=== PATIENT | male | born 1950 | race Caucasian/White ===

== ENCOUNTER 2019-07-13 09:04 | Inpatient (IN) | payer MEDICARE, MEDICAID, SELFPAY ==
[2019-07-13] VITALS (12 sets, daily range): BP systolic 117–158; BP diastolic 67–96; PULSE 91–109; RESP 15–20; TEMP 36.7–37.6; O2SAT 95–99; BMI 26.9
--- NOTE | 2019-07-13 | ECHO_ITS ---
Patient Info Name: Dimitry Pa Age: 68 years : 1950 Gender: Male Ht: 70 in Wt: 163 lbs BSA: 1.91 m2 HR: 100 bpm BP: 133 / 80 mmHg Heart Rhythm: Left Bundle Branch Block Technical Quality: Good Exam Date: 07/13/2019 2:08 PM Exam Location: [facility] Patient Status: Inpatient Admit Date: 07/13/2019 Staff Ordering Physician: Julia Ojeda NP Clinical Account Liaison: Dimitry Freire RDCS Attending Provider: Xochitl Saba MD Referring Physician: Rusty MCKEON; Exam Type: CA echo doppler color flow Study Info Indications I50.9 - Heart failure, unspecified Complete two-dimensional, color flow and Doppler transthoracic echocardiogram is performed. Strain analysis performed. History/Risk Factors CHF w/ edema and BNP 2089; anasarca. Summary 1. Left ventricular chamber dimension is severely enlarged. 2. Left ventricular systolic function is severely reduced, estimated at 20-25%. 3. Inferoapex has a small calcified mass, could be calcifed chronic thrombus. 4. The left ventricular diastolic function is abnormal. 5. E/e' 26 is significantly elevated. 6. Global longitudinal strain is abnormal at -9.3%. 7. Left atrial chamber dimension is moderately enlarged. 8. There is moderate aortic valve sclerosis. 9. There is trace aortic valve regurgitation. 10. The mitral valve has mildly calcified annulus. 11. There is mild to moderate mitral valve regurgitation. 12. Normal inferior vena cava with <50% collapse upon inspiration consistent with elevated right atrial pressure, 10 mmHg. Left Ventricle E/e' 26 is significantly elevated. Global longitudinal strain is abnormal at -9.3%. Inferoapex has a small calcified mass, could be calcifed chronic thrombus. Left ventricular chamber dimension is severely enlarged. Left ventricular systolic function is severely reduced, estimated at 20-25%. The left ventricular diastolic function is abnormal. Right Ventricle Right ventricular chamber dimension is normal. Right ventricular systolic function is normal. Left Atria Left atrial chamber dimension is moderately enlarged. Right Atria Right atrial chamber dimension is normal. Aortic Valve The aortic valve is trileaflet. There is moderate aortic valve sclerosis. There is no aortic valve stenosis. There is trace aortic valve regurgitation. Pulmonic Valve There is no pulmonic regurgitation. Mitral Valve The mitral valve has mildly calcified annulus. There is no mitral valve stenosis. There is mild to moderate mitral valve regurgitation. Tricuspid Valve There is no tricuspid valve regurgitation. Pericardium/Pleural There is no pericardial effusion. Inferior Vena Cava Normal inferior vena cava with <50% collapse upon inspiration consistent with elevated right atrial pressure, 10 mmHg. Aorta The aortic root size at the sinus of Valsalva is normal. Left Ventricular Outflow Tract Name Value Normal LVOT 2D LVOT Diameter 2.0 cm LVOT Doppler LVOT Peak Gradient 4 mmHg LVOT Mean Gradient 2 mmHg LVOT VTI
--- NOTE | ~2019-07-13 | XR_ITS ---
EXAMINATION: XR chest 2V DATE: 07/13/2019 10:22 INDICATION: Cough, chest pressure and dyspnea on exertion TECHNIQUE: frontal and lateral views of the chest were obtained. COMPARISON: None FINDINGS: Opacities at the lung bases, left greater than right with blunting at the posterior sulci and left co stophrenic angle. Pulmonary vascular congestion without deanna pulmonary edema. No pneumothorax. Signi ficant portion of the mid to inferior cardiac silhouette are obscured by the adjacent pleural effusio n/airspace disease. Mediastinal silhouette is normal. There are bridging osteophytes at multiple leve ls in the spine, consistent with diffuse idiopathic skeletal hyperostosis (DISH). Moderate osteoarthr itis at the bilateral shoulders. IMPRESSION: 1. Small bilateral pleural effusions, left greater than right. 2. Associated bibasilar opacities again left greater than right consistent with associated compressiv e atelectasis although differential includes pneumonia. 3. Pulmonary vascular congestion without deanna pulmonary edema. Reviewed, dictated and finalized at location A. IMPRESSION: 1. Small bilateral pleural effusions, left greater than right. 2. Associated bibasilar opacities again left greater than right consistent with associated compressive atelectasis although differential includes pneumonia. 3. Pulmonary vascular congestion without deanna pulmonary edema.
--- NOTE | ~2019-07-13 | NM_ITS ---
EXAMINATION: NM seferino stress w perfusion DATE: 07/16/2019 12:14 INDICATION: Systolic heart failure. TECHNIQUE: Rest images were obtained following intravenous administration of 9.4 mCi Tc99m tetrofosmi n (Myoview). The patient was infused intravenously with Lexiscan (Regadenoson). Then, 29.8 mCi Tc99m tetrofosmin (Myoview) was administered intravenously, and stress images were obtained. Data was recon structed into short axis and horizontal and vertical long axis SPECT images. Gated SPECT images were also obtained. COMPARISON: None. FINDINGS: Small to moderate sized, moderate severity nonreversible infarct in the right coronary yobani ry vascular distribution centered at the apical inferior segment with minimal extension into the yosi cent apical, apical septal and mid inferior septal and inferior segments. There is a second small to moderate sized, moderate severity nonreversible infarct in the circumflex coronary artery vascular di stribution involving the apical lateral and mid anterolateral segment. No evident reversible ischemia . There is left ventricular enlargement with global hypokinesis resulting in moderately decreased lef t ventricular ejection fraction measuring 29%. IMPRESSION: 1. Small to moderate-sized moderate severity infarcts in the circumflex and right coronary artery vas cular distributions. No reversible ischemia.. 2. Left ventricular enlargement with global height kidneys is resulting in moderately decreased left ventricular ejection fraction measuring 29%. Reviewed, dictated and finalized at location A. IMPRESSION: 1. Small to moderate-sized moderate severity infarcts in the circumflex and rig ht coronary artery vascular distributions. No reversible ischemia.. 2. Left ventricular enlargement with global height kidneys is resulting in mode rately decreased left ventricular ejection fraction measuring 29%.
--- NOTE | ~2019-07-13 | XR_ITS ---
XR chest 2V DATE: 07/16/2019 12:01 INDICATION: Cough, shortness of breath on exertion, chest pressure TECHNIQUE: AP and lateral views COMPARISON: 06/23/2019 AP and lateral chest FINDINGS: There are prominent bibasilar infiltrates and/atelectasis and mild bilateral pleural effusi ons, left greater than right. Compared to 07/13/2019 there is increased infiltrate or atelectasis at t he right lung base. Cardiomegaly. Aortic calcification. Pulmonary vascularity appears within normal limits. No pneumothor ax. IMPRESSION: Bibasilar infiltrates and/atelectasis, increased on the right since 07/13/2019 Bilateral pleural effusions, greater on the left Cardiomegaly Reviewed, dictated and finalized at location B.
--- NOTE | ~2019-07-13 | US_ITS ---
EXAMINATION: US scrotum doppler DATE: 07/13/2019 10:16 INDICATION: Bilateral testicular swelling TECHNIQUE: Testicular sonogram utilizing grayscale and Doppler COMPARISON: None. FINDINGS: The right testis measures 4.3 x 3.6 x 2.8 cm. The left testis measures 3.6 x 3.2 x 2.5 cm. Symmetric normal grayscale appearance to both testes. There is normal vascular flow to both testes. 14 x 13 x 1 0 mm anechoic right epididymal head cyst. Right epididymis is otherwise normal. The left epididymis i s normal with normal vascular flow. There is no varicocele. Small left hydrocele. Prominent scrotal e angelia. IMPRESSION: 1. Right epididymal cyst head cyst. Otherwise normal testes and epididymides. 2. Scrotal edema and small left hydrocele. Reviewed, dictated and finalized at location A.
--- NOTE | ~2019-07-13 | US_ITS ---
EXAMINATION: US venous doppler [facility] DATE: 07/13/2019 16:15 INDICATION: Lower limb edema. TECHNIQUE: Grayscale ultrasound images without and with compression and Doppler ultrasound images of the bilateral lower extremity veins were obtained. COMPARISON: None. FINDINGS: The visualized portions of right common femoral vein, profunda (deep) femoral vein, femoral vein, pop liteal vein, peroneal veins, posterior tibial veins, and greater saphenous vein outflow are patent. The visualized portions of left common femoral vein, profunda femoral vein, femoral vein, popliteal v ein, peroneal veins, posterior tibial veins, and greater saphenous vein outflow are patent. IMPRESSION: 1. No deep venous thrombosis. Reviewed, dictated and finalized at location A.
--- NOTE | ~2019-07-13 | CT_ITS ---
EXAMINATION: CT abdomen pelvis w con INDICATION: Abnormal liver function tests, testicular swelling TECHNIQUE: Computed tomographic images of the abdomen and pelvis were obtained after the administrati on of 100 cc of Omnipaque 350 intravenous contrast. The dose-length product (DLP) was 565.99 mGy-cm. Automated exposure control and iterative reconstruction technique were employed. COMPARISON: None available FINDINGS: There are moderate-sized pleural effusions with passive atelectasis of the visualized lung bases. The heart size is normal. There is a focal area of hypoenhancement upper pole of the spleen. T he pancreas size the gallbladder and adrenal glands are normal. There is a 3 mm nonobstructing stone of the left kidney and a 2 mm nonobstructing stone of the right kidney. There is diffuse heterogeneou s of the liver. No pathologically enlarged abdominal or pelvic lymph nodes are identified. There is n o free intraperitoneal gas or evidence of bowel obstruction. There is diffuse anasarca. A small volum e of pelvic ascites is noted. There is mild lumbar spondylosis. IMPRESSION: 1. Moderate-sized pleural effusions with passive atelectasis of the visualized lung bases. 2. Heterogeneous liver enhancement which could be due to congestive heart failure. 3. Bilateral nonobstructing nephrolithiasis. 4. Diffuse anasarca. Reviewed, dictated and finalized at location B. IMPRESSION: 1. Moderate-sized pleural effusions with passive atelectasis of the visualized lung bases. 2. Heterogeneous liver enhancement which could be due to congestive heart failu re. 3. Bilateral nonobstructing nephrolithiasis. 4. Diffuse anasarca.
--- NOTE | 2019-07-13 09:22 | ED.MALEGU ---
HPI - Male Genitourinary General Chief complaint: Urogenital-Male Stated complaint: testicular swelling Time Seen by Provider: 07/13/19 09:07 Source: patient and RN notes reviewed Mode of arrival: ambulatory Limitations: no limitations History of Present Illness HPI Narrative: Pt is a 68 y/o male who presents to the ED with c/o bilateral testicular swelling starting 4 days ago. He notes that he has had rhinorrhea, cough, and intermittent midsternal chest pain for roughly the past week. Pt states that his pain is aggravated with exertion, noting that he only has pain after walking 4-5 blocks. He also reports having difficulty breathing on exertion due to his sinus congestion. Pt states that he has had swelling in his bilateral testicles for the past 4 days. He notes that his lt testicle is swollen in the morning, but states that his rt testicle begins to swell throughout the day. Pt notes that he hasn't been wearing tight fitting underwear or doing anything that may have compressed his scrotum. He currently denies any testicular pain, dysuria, penile discharge, LE edema, ABD pain, nausea, vomiting, or dizziness. Pt states that he is not currently having any chest pain. MD Complaint: testicle swelling Onset (ago): day(s) (4) Location: right testicle and left testicle Associated symptoms: Reports other (cough; difficulty breathing on exertion; midsternal chest pain on exertion (resolved); sinus congestion; rhinorrhea ) Related Data Allergies Allergy/AdvReac Type Severity Reaction Status Date / Time Penicillins Allergy Mild Unknown Verified 07/13/19 09:11 Review of Systems Review of Systems: All systems reviewed & are unremarkable except as noted in HPI and below ENT: Reports nasal congestion and Reports nasal discharge Cardiovascular: Cardiovascular: Reports chest pain (midsternal chest pain on exertion (resolved)) and Denies leg edema Respiratory: Respiratory: Reports cough and Reports dyspnea on exertion (difficulty breathing with exertion) Gastrointestinal: Gastrointestinal: Denies abdominal pain, Denies nausea and Denies vomiting Genitourinary: Genitourinary: Denies dysuria, Denies penile discharge, Denies testicular pain and Reports other (bilateral testicular swelling) Neurologic: Denies dizziness PMFSH Past Medical History Medical History Shoulder fracture, left Staph infection thigh Surgical History Surgical History No significant past surgical history Social History Social History (Updated 07/13/19 @ 14:08 by Julia Ojeda NP) Social History: The patient is . He lives home alone. He still works at [employer]. His daughter and were killed in a car wreck. Leti heart his [id number]'s is durable power research attorney for healthcare. He stated that he has never smoked annually drinks about twice a year. The patient stated that he would allow the staff to shock him he went into cardiac arrest but does not want CPR put on a ventilator. Smoking status: Never smoker Alcohol intake: former Substance use: never Living arrangements: alone Occupation/Education: occupation Gender identity (if verbalized by the patient): Male Spiritual care concerns: No Agree to blood products: Yes Exam Narrative: Exam Narrative: GENERAL: Well-appearing, well-nourished, and in no acute distress. HEAD: Normocephalic, atraumatic. EYES: PERRL and EOMI. ENT: Mucous membranes moist. CHEST: Basilar rales bilaterally. No respiratory distress. HEART: Tachycardic and regular. Normal peripheral pulses. ABDOMEN: Soft, nontender, nondistended. : Edema to the penis and scrotum, normal-appearing glans without urethral discharge. No lesions noted. Testicles nontender bilaterally with normal lie. EXTREMITIES: Normal range of motion. 3+ edema. SKIN: Warm, dry, chronic venous stasis changes with scabbing to the margi
[2019-07-13 09:39] LABS: Basophils Percent Auto 0.5 % (0.2-1.2); Eosinophils Percent Auto 0.5 % (0-4.4); Hematocrit 45.1 % (42.0-52.0); Hemoglobin 14.5 g/dL (14.0-18.0); Immature Granulocyte Absolute 0.02 K/mm3 (0.00-0.031); Immature Granulocyte Percent A 0.2 % (0-0.5); Lymphocytes Percent Auto 9.3 % (18.3-44.2); Mean Corpuscular HGB Conc 32.2 g/dl (32-36); Mean Corpuscular Hemoglobin 29.8 pg (26-34); Mean Corpuscular Volume 92.6 fl (80-100); Mean Platelet Volume 12.4 fl (7.4-10.4); Monocytes Absolute Auto 0.6 K/mm3 (0.1-0.6); Neutrophils Absolute Auto 7.1 K/mm3 (1.3-6.7); Neutrophils Percent Auto 82.5 % (45.5-73.1); Platelet Count Result 294 k/mm3 (150-375); Red Blood Count 4.87 M/mm3 (4.6-6.20); Red Cell Distribution Width 13.4 % (11.5-14.5); White Blood Count 8.6 K/mm3 (4.5-10.0)
[2019-07-13 09:47] LABS: Prothrombin Time 13.2 Seconds (11.1-14.7)
[2019-07-13 09:48] LABS: Partial Thromboplastin Time 23.5 SECONDS (22.3-36.8)
--- NOTE | 2019-07-13 09:50 | PC.NURSE ---
pt to ultrasound via wc at 0945 by tech
[2019-07-13 09:54] LABS: Alanine Aminotransferase 75 U/L (4-50); Albumin Level 4.2 g/dL (3.5-5.1); Alkaline Phosphatase 616 U/L (38-126); Aspartate Amino Transferase 69 U/L (17-59); Bilirubin,Total 1.4 mg/dL (0.2-1.3); Blood Urea Nitrogen 14 mg/dL (9-20); Calcium 9.1 mg/dL (8.4-10.2); Carbon Dioxide 29 mmol/L (22-30); Chloride 97 mmol/L (98-107); Estimated CRCL calculation 106 ml/min; Estimated Glomerular Filt Rate > 60; Glucose 299 mg/dL (75-110); Sodium 133 mmol/L (137-145)
--- NOTE | 2019-07-13 09:58 | ECG_ITS ---
Measurements Intervals [place] Rate: 104 P: 30 MI: 198 QRS: 138 QRSD: 145 T: 21 QT: 397 QTc: 523 Interpretive Statements SINUS TACHYCARDIA RIGHT BUNDLE BRANCH BLOCK LEFT POSTERIOR FASCICULAR BLOCK ABNORMAL ECG Electronically Signed On 07-13-2019 10:00:15 CDT by Jovanni Goodman D.O.
[2019-07-13 10:03] LABS: NT Pro B Type Natriuretic Pept 2090 PG/ML (5-100)
[2019-07-13 10:08] LABS: Troponin I 0.032 ng/mL (0.000-0.034)
--- NOTE | 2019-07-13 10:34 | PC.NURSE ---
pt returning to u/s via wc for further testing
[2019-07-13 10:53] LABS: Add Urine Microscopic? YES; Appearance Urine Clear (Clear); Bacteria Urine Trace /hpf; Bilirubin Urine Negative (Negative); Blood Urine Negative (Negative); Color Urine Yellow (Yellow); Glucose Urine UA 3+ mg/dL (Negative); Ketones Urine 2+ mg/dL (Negative); Leukocyte Esterase Ur Negative LEU/UL (Negative); Mucus Urine Rare /lpf; Nitrate Urine Negative (Negative); Protein Urine 2+ mg/dL (Negative); Specific Grav Ur 1.024 (1.001-1.035); WBC Urine 0-3 /hpf
[2019-07-13] MEDS: FUROSEMIDE INJ 40 MG/4 ML VIAL IV PUSH ×2 (12:03→20:41)
--- NOTE | 2019-07-13 12:30 | ADMGEN ---
This patient, Dimitry Pa, was admitted to 2 Medical Room 240-01. Patient/family oriented to hospital policies and general routines including ID bracelet, bed and alarms, visiting hours, pain management, procedures, bathroom and other care routines, personal items, smoking policy, room service/diet, and visiting hours. Valuables list has been completed. Information on how to activate the Rapid Response Team has been discussed. Patient/Family are encouraged to report perceived risks to care and to ask questions if they do not understand what they are told or what they should do.
--- NOTE | 2019-07-13 13:57 | PM.IMHP ---
H&P: HPI History of Present Illness Chief complaint: CHF/hyperglycemia/peripheral edema/LFT abnormality Narrative: Dimitry Pa is a 68 year old male who does not have a primary care doctor. The patient is not currently on any medications at this time. The patient came in because of bilateral testicular enlargement for the last 4 days. He has had rhinorrhea, cough, and intermittent midsternal chest pain for roughly the past week. Patient has not had any fever chills. The patient has increased swelling to his lower extremities and he has had increased difficulty breathing. He has not had a previous history of having congestive heart failure in the past. He is not on any medication. The patient does not have any chest pain. His white count is normal. Blood sugar 299. The patient denies being diabetic. He also has multiple healing sores to his lower extremities. Liver enzymes are all elevated. CT scan of the chest was read as moderate size pleural effusion with passive atelectasis at the visualized lung bases. Heterogenous liver enhancement which could be due to congestive heart failure. Bilateral nonobstructing nephrolithiasis. Diffuse anasarca. Patient was given IV Lasix in the emergency room is voiding without difficulty. He has had at least 1 L out so far. Date of service is 07/13/2019 Review of Systems Review of Systems: All systems reviewed & are unremarkable except as noted in HPI and below Constitutional: Constitutional: Reports as per HPI and Reports no additional constitutional complaints Eyes: Eyes: Reports as per HPI and Reports no additional eye complaints ENT: Reports system reviewed and no additional complaints, except as documented and Reports Normal hearing present Cardiovascular: Cardiovascular: Reports no additional cardiovascular complaints Respiratory: Respiratory: Reports no additional respiratory complaints and Reports no additional respiratory complaints Gastrointestinal: Gastrointestinal: Reports as per HPI and Reports no additional gastrointestinal complaints Musculoskeletal: Musculoskeletal: Reports no additional musculoskeletal complaints Integumentary/Breasts: Skin/Breast: Reports system reviewed and no additional complaints, except as docu and Reports as per HPI Neurologic: Reports system reviewed and no additional complaints, except as documented, Reports as per HPI and Reports Normal hearing present Psychiatric: Psychiatric: Reports no additional psychiatric complaints and Reports as per HPI Endocrine: Endocrine: Reports no additional endocrine complaints Hematologic/Lymphatic: Hematologic/Lymphatic: Reports no additional hematologic/lymphatic complaints Allergic/Immunologic: Allergic/Immunologic: Reports no additional allergic/immunologic complaints [facility] Past Medical History Medical History Shoulder fracture, left Staph infection thigh Surgical History Surgical History No significant past surgical history Family History Family History (Updated 07/13/19 @ 14:05 by Julia Ojeda NP) Other Lung cancer Sibling Acute myocardial infarction Social History Social History (Updated 07/13/19 @ 14:08 by Julia Ojeda NP) Social History: The patient is . He lives home alone. He still works at [employer]. His daughter and were killed in a car wreck. Leti heart his [id number]'s is durable power high lift mule operator for healthcare. He stated that he has never smoked annually drinks about twice a year. The patient stated that he would allow the staff to shock him he went into cardiac arrest but does not want CPR put on a ventilator. Smoking status: Never smoker Substance use: never Living arrangements: alone Occupation/Education: occupation Gender identity (if verbalized by the patient): Male Meds Home Medications and Allergies Home Medications
--- NOTE | 2019-07-13 16:23 | PC.NURSE ---
Pt refusing integumentary and reproductive assessments. Patient is visibly shaking and very anxious about being in the hospital and stated I dont want to be touched, and I dont want you to see the scabs on my legs. Pt refuses to removes socks to examine his feet. I educated the patient on why and the importance of examining him head to toe. The pt said, everyone has already looked at me today and Im done with it. MD aware of patient's refusal. Unsure of patient's wounds but will continue to attempt physical assessment.
[2019-07-13 16:32] LABS: Glucose Point of Care 283 (65-105)
--- NOTE | 2019-07-13 16:44 | PM.CNCAR ---
Assessment and Plan Assessment and plan (1) Elevated liver function tests: Code(s): R94.5 - Abnormal results of liver function studies Status: Acute Assessment and Plan: Probably due to passive congestion. (2) Anasarca: Code(s): R60.1 - Generalized edema Status: Acute (3) Acute combined systolic and diastolic heart failure: Code(s): I50.41 - Acute combined systolic (congestive) and diastolic (congestive) heart failure Status: Acute Assessment and Plan: Could be due to viral cardiomyopathy given recent upper respiratory symptoms prior to edema onset. Continue with diuresis with Lasix 40 mg IV BID. Start Coreg 3.125 mg BID and Lisinopril 2.5 mg daily (instead of Entresto due to cost, per patient). Plan for diuresis over , then lexiscan myoview on Tuesday. Life Vest to prevent sudden cardiac arrest, and patient is interested only if affordable. History of Present Illness History of Present Illness Consult date/time: 07/13/19 16:44 Reason for consult: CHF. Dimitry Pa is a 68 year old male who does not have a primary care doctor. The patient is not currently on any medications at this time. The patient came in because of bilateral testicular enlargement for the last 4 days. He has had rhinorrhea, cough for the past 1 week. Patient has not had any fever chills. The patient has increased swelling to his lower extremities and he has had increased difficulty breathing. He can walk several blocks previously. He has not had a previous history of having congestive heart failure in the past. He also has multiple healing sores to his lower extremities. Liver enzymes are all elevated. CT scan of the chest was read as moderate size pleural effusion with passive atelectasis at the visualized lung bases. Heterogenous liver enhancement which could be due to congestive heart failure. Bilateral nonobstructing nephrolithiasis. Diffuse anasarca. Patient was given IV Lasix in the emergency room is voiding without difficulty. Thus far his Urine output is 3.5 liters. He states he is feeling much better now. Echo today showed EF 20-25%, inferoapex with small calcified mass s/o chronic calcified thrombus, diastolic dysfunction (E/e' 26), mod LAE. EKG today shows Sinus rhythm, RBBB, LPFB. Reason For Visit: CHF/hyperglycemia/peripheral edema/LFT abnormality Review of Systems Review of Systems: All systems reviewed & are unremarkable except as noted in HPI and below Constitutional: Constitutional: Reports as per HPI, Denies chills and Denies fatigue Cardiovascular: Cardiovascular: Reports as per HPI, Denies chest pain, Reports leg edema and Denies lightheadedness Respiratory: Respiratory: Reports as per HPI and Reports dyspnea on exertion Gastrointestinal: Gastrointestinal: Reports as per HPI and Denies abdominal pain Genitourinary: Genitourinary: Reports as per HPI Neurologic: Reports as per HPI and Denies Abnormal speech present [facility] Past Medical History Medical History Shoulder fracture, left Staph infection thigh Surgical History Surgical History No significant past surgical history Social History Social History (Updated 07/13/19 @ 14:08 by Julia Ojeda NP) Social History: The patient is . He lives home alone. He still works at [employer]. His daughter and were killed in a car wreck. Leti heart his [id number]-[id number]'s is durable power privacy attorney for healthcare. He stated that he has never smoked annually drinks about twice a year. The patient stated that he would allow the staff to shock him he went into cardiac arrest but does not want CPR put on a ventilator. Smoking status: Never smoker Alcohol intake: former Substance use: never Living arrangements: alone Occupation/Education: occupation Gender identity (if verbalized by the patient): Male
[2019-07-13] MEDS: INSULIN ASPART (*BKC) 100 UNITS/ML SUB-Q (16:47)
[2019-07-13] MEDS: ENOXAPARIN 40 MG/0.4 ML SYRINGE SUB-Q (18:05)
[2019-07-13 18:33] LABS: Magnesium 1.6 mg/dL (1.6-2.3)
[2019-07-13] MEDS: MAGNESIUM SULF 2 GM/WATER 50ML 2 GM/50 ML BAG IVPB (20:39)
[2019-07-13] MEDS: carvediloL 6.25 MG TABLET PO (20:41)
[2019-07-13] MEDS: lisinopriL 5 MG TABLET PO (20:41)
[2019-07-13 21:05] LABS: Glucose Point of Care 247 (65-105)
[2019-07-14] VITALS (14 sets, daily range): BP systolic 113–115; BP diastolic 66–73; PULSE 73–89; RESP 16–20; TEMP 36.5; O2SAT 90–97
[2019-07-14 05:48] LABS: Basophils Percent Auto 0.6 % (0.2-1.2); Eosinophils Absolute Auto 0.1 K/mm3 (0-0.3); Eosinophils Percent Auto 2.4 % (0-4.4); Hematocrit 37.5 % (42.0-52.0); Hemoglobin 12.3 g/dL (14.0-18.0); Immature Granulocyte Absolute 0.01 K/mm3 (0.00-0.031); Immature Granulocyte Percent A 0.2 % (0-0.5); Lymphocytes Absolute Auto 0.77 K/mm3 (0.9-3.2); Lymphocytes Percent Auto 15.3 % (18.3-44.2); Mean Corpuscular HGB Conc 32.8 g/dl (32-36); Mean Corpuscular Hemoglobin 29.4 pg (26-34); Mean Corpuscular Volume 89.7 fl (80-100); Mean Platelet Volume 11.9 fl (7.4-10.4); Monocytes Absolute Auto 0.5 K/mm3 (0.1-0.6); Monocytes Percent Auto 9.2 % (2.6-8.5); Neutrophils Absolute Auto 3.6 K/mm3 (1.3-6.7); Neutrophils Percent Auto 72.3 % (45.5-73.1); Platelet Count Result 210 k/mm3 (150-375); Red Blood Count 4.18 M/mm3 (4.6-6.20); Red Cell Distribution Width 13.1 % (11.5-14.5)
[2019-07-14 05:53] LABS: Alanine Aminotransferase 58 U/L (4-50); Albumin Level 2.9 g/dL (3.5-5.1); Alkaline Phosphatase 404 U/L (38-126); Aspartate Amino Transferase 55 U/L (17-59); Bilirubin,Total 0.9 mg/dL (0.2-1.3); Blood Urea Nitrogen 13 mg/dL (9-20); Calcium 8.1 mg/dL (8.4-10.2); Carbon Dioxide 32 mmol/L (22-30); Chloride 97 mmol/L (98-107); Estimated CRCL calculation 106 ml/min; Estimated Glomerular Filt Rate > 60; Glucose 238 mg/dL (75-110); Magnesium 1.8 mg/dL (1.6-2.3); Potassium 3.2 mmol/L (3.4-5.0); Sodium 132 mmol/L (137-145)
[2019-07-14 06:24] LABS: Hemoglobin A1C > 14.0 % (<5.7)
[2019-07-14 08:56] LABS: Glucose Point of Care 190 (65-105)
[2019-07-14] MEDS: lisinopriL 5 MG TABLET PO ×2 (09:28→16:32)
[2019-07-14] MEDS: POTASSIUM CHLORIDE 20 MEQ TABLET 40 MEQ PO (09:28)
[2019-07-14] MEDS: ASPIRIN 81 MG ENTERIC TABLET PO (09:28)
[2019-07-14] MEDS: carvediloL 6.25 MG TABLET PO ×2 (09:28→20:12)
[2019-07-14] MEDS: FUROSEMIDE INJ 40 MG/4 ML VIAL IV PUSH ×2 (09:29→20:12)
--- NOTE | 2019-07-14 09:41 | PM.PNCARD ---
Progress Note: A&P Assessment and Plan (1) Acute combined systolic and diastolic heart failure: Code(s): I50.41 - Acute combined systolic (congestive) and diastolic (congestive) heart failure Status: Acute Assessment and Plan: Continue with diuresis. Replete potassium and Mag. 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 Continue with diuresis with Lasix 40 mg IV BID. On Coreg 6.25 mg BID and Lisinopril 5 mg BID (instead of Entresto due to cost, per patient). Plan for diuresis over , then lexiscan myoview on Tuesday. Life Vest to prevent sudden cardiac arrest, and patient is interested only if affordable. (2) Elevated liver function tests: Code(s): R94.5 - Abnormal results of liver function studies Status: Acute Assessment and Plan: Due to passive liver congestion, likely. Liver enzymes improving with diuresis. (3) PAT (paroxysmal atrial tachycardia): Code(s): I47.1 - Supraventricular tachycardia Status: Acute (4) NSVT (nonsustained ventricular tachycardia): Code(s): I47.2 - Ventricular tachycardia Status: Acute Assessment and Plan: Start Amiodarone 200 mg PO BID to prevent NSVT and PAT. Subjective Date/time seen: 07/14/19 09:41 Denies chest pain or sob. Edema of legs has resolved. Telemetry shows several short runs of atrial tachycardia and a few NSVT. Exam Const: General: comfortable and no acute distress Neck: Neck: no JVD Carotids: no bruits Resp: Auscultation: clear to auscultation bilaterally, no crackles, no rales, no rhonchi and no wheezes Cardio: Rate: regular rate Rhythm: regular rhythm Heart sounds: no murmurs GI: Inspection: non-distended Neuro: Speech: normal speech Extrem: Right lower extremity: no edema Left lower extremity: no edema Other: Legs with erythema and warmth bilaterally Objective Data Vital Signs Vital Signs: Vital Signs - 24 hr 07/13/19 11:19 07/13/19 12:02 07/13/19 13:34 Temperature Pulse Rate 101 H 97 96 Respiratory Rate 15 18 17 Blood Pressure 117/96 H 133/80 133/80 Pulse Oximetry 97 97 98 07/13/19 15:01 07/13/19 16:00 07/13/19 17:30 Temperature 98.0 F 98.1 F Pulse Rate 95 100 105 H Respiratory Rate 18 17 Blood Pressure 145/80 H 141/88 H Pulse Oximetry 96 97 07/13/19 20:00 07/13/19 20:41 07/13/19 22:00 Temperature 99.6 F Pulse Rate 91 91 100 Respiratory Rate 20 Blood Pressure 131/67 Pulse Oximetry 95 07/14/19 00:00 07/14/19 04:00 07/14/19 05:57 Temperature 97.7 F Pulse Rate 77 73 75 Respiratory Rate 18 Blood Pressure 115/71 Pulse Oximetry 94 07/14/19 09:28 Temperature Pulse Rate 75 Respiratory Rate Blood Pressure Pulse Oximetry Intake/Output Intake/Output: Intake & Output 07/11/19 07/12/19 07/13/19 07/14/19 23:59 23:59 23:59 23:59 Intake Total 740 640 Output Total 3500 2250 Balance -2460 -1610 Meds/Results Medications: Active Medications Generic Name Dose Route Start Last Admin Trade Name Freq PRN Reason Stop Dose Admin Acetaminophen 650 mg 07/13/19 11:30 Tylenol Tablet PO Q4H PRN Mild Pain (1-3) or Fever Hydrocodone Bitart/Acetaminophen 1 tab 07/13/19 11:30 [place] 5-325 Mg PO Q4H PRN Pain Rated 4-6 Aspirin 81 mg 07/14/19 09:00 07/14/19 09:28 Aspirin Ec PO 81 mg QAM CRISTI Administration Carvedilol 6.25 mg 07/13/19 21:00 07/14/19 09:28 Coreg PO 6.25 mg Q12HR CRISTI Administration Dextrose 12.5 gm 07/13/19 14:19 Dextrose 50% Syringe IV PUSH PRN PRN Hypoglycemia Protocol Enoxaparin Sodium 40 mg 07/13/19 18:00 07/13/19 18:05 Lovenox SUB-Q 40 mg QPM CRISTI Administration Furosemide 40 mg 07/13/19 21:00 07/14/19 09:29 Lasix Inj IV PUSH 40 mg Q12HR CRISTI Administration Glucagon 1 mg 07/13/19 14:19 Glucagon For Inj IM PRN PRN Hypoglycemia Prot
[2019-07-14] MEDS: AMIODARONE HCL 200 MG TABLET PO ×2 (11:22→16:32)
--- NOTE | 2019-07-14 11:52 | PM.IMPN ---
Progress Note: A&P Assessment and Plan (1) Pulmonary edema: Qualifiers: Chronicity: chronic Qualified Code(s): J81.1 - Chronic pulmonary edema Code(s): J81.1 - Chronic pulmonary edema Status: Acute Assessment and Plan: SEcondary to congestive heart failure. Continue to diuresis. pt seen by cardiology DR Goodman. See recommendations. pt is being treated for acute on chronic systolic chf. pt has coreg and lisinopril ordered. (2) Anasarca: Code(s): R60.1 - Generalized edema Status: Acute Assessment and Plan: Continue with IV Lasix. Venous doppler negative for DVT. (3) Cellulitis: Code(s): L03.90 - Cellulitis, unspecified Status: Acute Assessment and Plan: Patient's legs are edematous and has multiple scabs to his lower extremity continue iv vancomycin (4) Elevated liver function tests: Code(s): R94.5 - Abnormal results of liver function studies Status: Acute Assessment and Plan: Hepatic congestion secondary to congestive heart failure with all the anasarca. EF 20%. (5) Elevated blood sugar: Code(s): R73.9 - Hyperglycemia, unspecified Status: Acute Assessment and Plan: hbAic is over 14. Subjective Date/time seen: 07/14/19 11:52 Interval history: Thierno is a 68 year old male who does not have a primary care doctor. The patient is not currently on any medications at this time. The patient came in because of bilateral testicular enlargement for the last 4 days. He has had rhinorrhea, cough, and intermittent midsternal chest pain for roughly the past week. Pt had CT abdomen and pelvis and US of scrotum, Cxr, Echocardiogram and venous doppler. CXR shows - Pulmonary vascular congestion without deanna pulmonary edema. Review of Systems Review of Systems: All systems reviewed & are unremarkable except as noted in HPI and below Respiratory: Respiratory: Reports chest congestion and Reports cough Integumentary/Breasts: Comments: Edema from legs up to scrotum Exam Const: General: cooperative, healthy appearing, comfortable, no acute distress, well developed, alert and awake Orientation/consciousness: oriented to person, oriented to place, oriented to time and patient oriented x3 Resp: Effort & Inspection: normal respiratory effort Auscultation: rhonchi Percussion: percussion normal Cardio: Palpation: normal PMI Rate: regular rate Rhythm: regular rhythm Heart sounds: S1 normal heart sound present and S2 normal heart sound present Neuro: General: oriented to person, oriented to place, oriented to time and patient oriented x3 Cranial nerves: Yes Equal, round and reactive pupils present and Yes Normal hearing present Cognition (Neuro): normal cognition Speech: normal speech Gait exam (Neuro): Normal gait present Motor exam (neuro): 5/5 motor strength present throughout Sensory Exam: normal sensation Extrem: Right upper extremity: shoulder/upper arm Left lower extremity: edema (Multiple scabs to lower extremity) Details: pitting and 4+ Psych: Appearance: grossly normal Mental Status: mental status grossly normal Speech and movement: Normal speech and movement present Affect: normal affect Attitude: cooperative Thought process: Normal thought process present Insight: Fair insight present (Psych) Judgement: Fair judgement present (Psych) Objective Data Vital Signs Vital Signs: Vital Signs - 24 hr 07/13/19 12:02 07/13/19 13:34 07/13/19 15:01 Temperature 36.7 C Pulse Rate 97 96 95 Respiratory Rate 18 17 18 Blood Pressure 133/80 133/80 145/80 H Pulse Oximetry 97 98 96 07/13/19 16:00 07/13/19 17:30 07/13/19 20:00 Temperature 36.7 C Pulse Rate 100 105 H 91 Respiratory Rate 17 Blood Pressure 141/88 H Pulse Oximetry 97 07/13/19 20:41 07/13/19 22:00 07/14/19 00:00 Temperature 37.6 C Pulse Rate 91 100 77 Respiratory Rate 20 Blood Pressure 131/67 Pulse Oximetry 95 07/14/19 04
[2019-07-14 12:17] LABS: Glucose Point of Care 200 (65-105)
[2019-07-14] MEDS: INSULIN ASPART (*BKC) 100 UNITS/ML SUB-Q (16:29)
[2019-07-14] MEDS: POTASSIUM CHLORIDE 20 MEQ TABLET.ER PO (16:32)
[2019-07-14] MEDS: ENOXAPARIN 40 MG/0.4 ML SYRINGE SUB-Q (17:37)
[2019-07-14 18:14] LABS: Glucose Point of Care 317 (65-105)
[2019-07-14 20:43] LABS: Glucose Point of Care 299 (65-105)
[2019-07-15] VITALS (11 sets, daily range): BP systolic 96–110; BP diastolic 63–71; PULSE 71–89; RESP 16–20; TEMP 36.4–36.9; O2SAT 97–100
[2019-07-15 02:08] LABS: Vancomycin Trough 9.5 ug/mL (10.0-20.0)
[2019-07-15 05:03] LABS: Hematocrit 38.7 % (42.0-52.0); Hemoglobin 12.6 g/dL (14.0-18.0); Mean Corpuscular HGB Conc 32.6 g/dl (32-36); Mean Corpuscular Hemoglobin 29.6 pg (26-34); Mean Corpuscular Volume 90.8 fl (80-100); Mean Platelet Volume 11.4 fl (7.4-10.4); Platelet Count Result 210 k/mm3 (150-375); Red Blood Count 4.26 M/mm3 (4.6-6.20); Red Cell Distribution Width 12.9 % (11.5-14.5); White Blood Count 5.1 K/mm3 (4.5-10.0)
[2019-07-15 05:19] LABS: Alanine Aminotransferase 58 U/L (4-50); Alkaline Phosphatase 406 U/L (38-126); Aspartate Amino Transferase 57 U/L (17-59); Bilirubin,Total 0.8 mg/dL (0.2-1.3); Blood Urea Nitrogen 13 mg/dL (9-20); Calcium 8.3 mg/dL (8.4-10.2); Carbon Dioxide 34 mmol/L (22-30); Chloride 97 mmol/L (98-107); Estimated CRCL calculation 92 ml/min; Estimated Glomerular Filt Rate > 60; Glucose 259 mg/dL (75-110); Magnesium 1.7 mg/dL (1.6-2.3); Potassium 3.6 mmol/L (3.4-5.0); Sodium 133 mmol/L (137-145)
--- NOTE | 2019-07-15 07:55 | ECG_ITS ---
Measurements Intervals [place] Rate: 79 P: 5 [place]: 240 QRS: 132 QRSD: 150 T: 60 QT: 446 QTc: 514 Interpretive Statements SINUS RHYTHM WITH FIRST DEGREE AV BLOCK RIGHT BUNDLE BRANCH BLOCK LEFT POSTERIOR FASCICULAR BLOCK ABNORMAL ECG Electronically Signed On 07-15-2019 10:09:11 CDT by Jovanni Goodman D.O.
[2019-07-15] MEDS: FUROSEMIDE INJ 40 MG/4 ML VIAL IV PUSH ×2 (07:59→20:12)
[2019-07-15] MEDS: POTASSIUM CHLORIDE 20 MEQ TABLET.ER PO ×2 (07:59→16:19)
[2019-07-15] MEDS: ASPIRIN 81 MG ENTERIC TABLET PO (07:59)
[2019-07-15] MEDS: lisinopriL 5 MG TABLET PO ×2 (07:59→16:19)
[2019-07-15] MEDS: AMIODARONE HCL 200 MG TABLET PO ×2 (08:00→16:19)
[2019-07-15] MEDS: carvediloL 6.25 MG TABLET PO ×2 (08:00→20:11)
[2019-07-15] MEDS: INSULIN ASPART (*BKC) 100 UNITS/ML SUB-Q ×2 (08:01→12:16)
[2019-07-15 08:06] LABS: Glucose Point of Care 226 (65-105)
--- NOTE | 2019-07-15 10:02 | PM.PNCARD ---
Progress Note: A&P Assessment and Plan (1) Acute combined systolic and diastolic heart failure: Code(s): I50.41 - Acute combined systolic (congestive) and diastolic (congestive) heart failure Status: Acute Assessment and Plan: Continue with diuresis. Replete potassium and Mag. 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 Continue with diuresis with Lasix 40 mg IV BID. On Coreg 6.25 mg BID and Lisinopril 5 mg BID (instead of Entresto due to cost, per patient). Add Spironolactone 12.5 mg daily which will conserve potassium and increase diuresis. Plan for diuresis over , then lexiscan myoview on Tuesday. Life Vest to prevent sudden cardiac arrest, and patient is interested only if affordable. (2) Elevated liver function tests: Code(s): R94.5 - Abnormal results of liver function studies Status: Acute Assessment and Plan: Due to passive liver congestion, likely. Liver enzymes improving with diuresis. (3) PAT (paroxysmal atrial tachycardia): Code(s): I47.1 - Supraventricular tachycardia Status: Acute (4) NSVT (nonsustained ventricular tachycardia): Code(s): I47.2 - Ventricular tachycardia Status: Acute Assessment and Plan: Start Amiodarone 200 mg PO BID to prevent NSVT and PAT. Check EKG. Subjective Date/time seen: 07/15/19 10:02 Report no more sob or and no chest pains. Mild edema of both legs. Exam Const: General: comfortable and no acute distress Neck: Neck: no JVD Carotids: no bruits Resp: Auscultation: clear to auscultation bilaterally, no crackles, no rales, no rhonchi and no wheezes Cardio: Rate: regular rate Rhythm: regular rhythm Heart sounds: no murmurs GI: Inspection: non-distended Neuro: Speech: normal speech Extrem: Right lower extremity: edema Left lower extremity: edema Other: Mild edema of both legs Objective Data Vital Signs Vital Signs: Vital Signs - 24 hr 07/14/19 11:22 07/14/19 12:00 07/14/19 14:00 Temperature 97.7 F Pulse Rate 86 78 85 Respiratory Rate 20 Blood Pressure 114/66 Pulse Oximetry 90 07/14/19 16:00 07/14/19 16:32 07/14/19 19:35 Temperature Pulse Rate 89 85 85 Respiratory Rate 20 Blood Pressure Pulse Oximetry 90 07/14/19 20:00 07/14/19 20:12 07/14/19 22:00 Temperature 97.7 F Pulse Rate 76 80 77 Respiratory Rate 16 Blood Pressure 113/73 Pulse Oximetry 97 07/15/19 00:00 07/15/19 04:00 07/15/19 06:00 Temperature 97.6 F Pulse Rate 79 71 72 Respiratory Rate 16 Blood Pressure 110/71 Pulse Oximetry 98 07/15/19 08:00 Temperature Pulse Rate 80 Respiratory Rate Blood Pressure Pulse Oximetry Intake/Output Intake/Output: Intake & Output 07/12/19 07/13/19 07/14/19 07/15/19 23:59 23:59 23:59 23:59 Intake Total 740 2230 450 Output Total 3500 4000 1150 Balance -1235 -1770 -700 Meds/Results Medications: Active Medications Generic Name Dose Route Start Last Admin Trade Name Freq PRN Reason Stop Dose Admin Acetaminophen 650 mg 07/13/19 11:30 Tylenol Tablet PO Q4H PRN Mild Pain (1-3) or Fever Hydrocodone Bitart/Acetaminophen 1 tab 07/13/19 11:30 [place] 5-325 Mg PO Q4H PRN Pain Rated 4-6 Amiodarone HCl 200 mg 07/14/19 09:50 07/15/19 08:00 Pacerone PO 200 mg BID CRISTI Administration Aspirin 81 mg 07/14/19 09:00 07/15/19 07:59 Aspirin Ec PO 81 mg QAM CRISTI Administration Carvedilol 6.25 mg 07/13/19 21:00 07/15/19 08:00 Coreg PO 6.25 mg Q12HR CRISTI Administration Dextrose 12.5 gm 07/13/19 14:19 Dextrose 50% Syringe IV PUSH PRN PRN Hypoglycemia Protocol Enoxaparin Sodium 40 mg 07/13/19 18:00 07/14/19 17:37 Lovenox SUB-Q 40 mg QPM CRISTI Administration Furosemide 40 mg 07/13/19 21:00 07/15/19 07:59 Lasix Inj IV PUSH 40 mg Q12HR CRISTI Administration Glucagon 1 mg 07/12
[2019-07-15] MEDS: MAGNESIUM OXIDE 400 MG TABLET PO ×2 (11:20→16:19)
[2019-07-15] MEDS: SPIRONOLACTONE 12.5 MG TABLET PO (11:21)
[2019-07-15 11:50] LABS: Glucose Point of Care 334 (65-105)
--- NOTE | 2019-07-15 12:10 | PM.IMPN ---
Progress Note: A&P Assessment and Plan (1) Pulmonary edema: Qualifiers: Chronicity: chronic Qualified Code(s): J81.1 - Chronic pulmonary edema Code(s): J81.1 - Chronic pulmonary edema Status: Acute Assessment and Plan: SEcondary to congestive heart failure. Continue to diuresis. pt seen by cardiology DR Goodman. See recommendations. pt is being treated for acute on chronic systolic chf. pt has coreg and lisinopril ordered. Thierno is a 68 year old male who does not have a primary care doctor. The patient is not currently on any medications at this time. The patient came in because of bilateral testicular enlargement for the last 4 days. He has had rhinorrhea, cough, and intermittent midsternal chest pain for roughly the past week. Pt had CT abdomen and pelvis which showed bilateral pleural effusion, and US of scrotum showed normal taste NSR, most likely secondary to exacerbation of CHF, , Echocardiogram showed severe systolic dysfunction with ejection fraction of 20% patient is seen by patient care provider and being diuresed with IV Lasix 40 mg b.i.d., Coreg 6.25 mg b.i.d. and lisinopril 5 mg b.i.d. as well as spironolactone 12 5 mg q.day patient clinically symptoms are improving and to continue present management and monitor and venous doppler. Which is negative for DVT however patient does have a cellulitis and being treated, patient is scheduled to have excess scan tomorrow and will need LifeVest to prevent sudden cardiac . Currently patient denies any chest pain shortness of breath palpitation will have the PT/ OT evaluate the patient (2) Anasarca: Code(s): R60.1 - Generalized edema Status: Acute Assessment and Plan: Continue with IV Lasix. Venous doppler negative for DVT. (3) Cellulitis: Code(s): L03.90 - Cellulitis, unspecified Status: Acute Assessment and Plan: Patient's legs are edematous and has multiple scabs to his lower extremity continue iv vancomycin (4) Elevated liver function tests: Code(s): R94.5 - Abnormal results of liver function studies Status: Acute Assessment and Plan: Hepatic congestion secondary to congestive heart failure with all the anasarca. EF 20%. (5) Elevated blood sugar: Code(s): R73.9 - Hyperglycemia, unspecified Status: Acute Assessment and Plan: hbAic is over 14. Will have clinical document improvement educator evaluate the patient and further recommendation to follow Subjective Date/time seen: 07/15/19 12:10 Interval history: Thierno is a 68 year old male who does not have a primary care doctor. The patient is not currently on any medications at this time. The patient came in because of bilateral testicular enlargement for the last 4 days. He has had rhinorrhea, cough, and intermittent midsternal chest pain for roughly the past week. Pt had CT abdomen and pelvis which showed bilateral pleural effusion, and US of scrotum showed normal taste NSR, most likely secondary to exacerbation of CHF, , Echocardiogram showed severe systolic dysfunction with ejection fraction of 20% patient is seen by patient care provider and being diuresed with IV Lasix 40 mg b.i.d., Coreg 6.25 mg b.i.d. and lisinopril 5 mg b.i.d. as well as spironolactone 12 5 mg q.day patient clinically symptoms are improving and to continue present management and monitor and venous doppler. Which is negative for DVT however patient does have a cellulitis and being treated, patient is scheduled to have excess scan tomorrow and will need LifeVest to prevent sudden cardiac . Currently patient denies any chest pain shortness of breath palpitation will have the PT/ OT evaluate the patient Review of Systems Review of Systems: All systems reviewed & are unremarkable except as noted in HPI and below Exam Narrative: Exam Narrative: Elderly frail chronically ill appears older than his age Const: General: no acute distress HENMT: General nose exam: Normal nares present
[2019-07-15 16:33] LABS: Glucose Point of Care 406 (65-105)
[2019-07-15] MEDS: INSULIN GLARGINE (*BKC) 100 UNITS/ML 20 UNITS SUB-Q (16:41)
[2019-07-15] MEDS: INSULIN ASPART (*BKC) 100 UNITS/ML 7 UNITS SUB-Q (16:41)
[2019-07-15] MEDS: ENOXAPARIN 40 MG/0.4 ML SYRINGE SUB-Q (18:11)
[2019-07-15 22:57] LABS: Glucose Point of Care 258 (65-105)
[2019-07-16] VITALS (13 sets, daily range): BP systolic 102–118; BP diastolic 65–72; PULSE 68–108; RESP 16–20; TEMP 36.8–36.9; O2SAT 95–98; BMI 27.0
[2019-07-16 06:02] LABS: Hematocrit 40.2 % (42.0-52.0); Hemoglobin 12.8 g/dL (14.0-18.0); Mean Corpuscular HGB Conc 31.8 g/dl (32-36); Mean Corpuscular Hemoglobin 29.6 pg (26-34); Mean Corpuscular Volume 92.8 fl (80-100); Mean Platelet Volume 12.3 fl (7.4-10.4); Platelet Count Result 214 k/mm3 (150-375); Red Blood Count 4.33 M/mm3 (4.6-6.20); Red Cell Distribution Width 13.2 % (11.5-14.5); White Blood Count 6.1 K/mm3 (4.5-10.0)
[2019-07-16 06:07] LABS: Blood Urea Nitrogen 19 mg/dL (9-20); Calcium 8.4 mg/dL (8.4-10.2); Carbon Dioxide 31 mmol/L (22-30); Chloride 96 mmol/L (98-107); Estimated CRCL calculation 82 ml/min; Estimated Glomerular Filt Rate > 60; Glucose 238 mg/dL (75-110); Potassium 3.4 mmol/L (3.4-5.0); Sodium 132 mmol/L (137-145)
--- NOTE | 2019-07-16 09:00 | EST_ITS ---
Patient Info Name: Dimitry Pa Age: 68 years : 1950 Gender: Male Ht: 70 in Wt: 187 lbs BSA: 2.06 m2 Exam Date: 07/16/2019 10:50 AM Exam Location: [facility] Stress Patient Status: Inpatient Admit Date: 07/14/2019 Staff Ordering Physician: Jovanni Goodman DO Attending Provider: Xochitl Saba MD Exercise Technologist: Kassie Gomez RDCS Exercise Physician: Jovanni Goodman DO Exam Type: CA stress seferino w NM Study Info Indications I50.20 - Unspecified systolic (congestive) heart failure A regadenoson stress test was performed. Summary 1. 1. Negative lexiscan stress test for ischemic ST changes by ECG criteria. 2. 2. Stable hemodynamics throughout the test. 3. 3. Nuclear scan to follow and will be reported separately. Please correlate with it. 4. 4. Patient informed of the above results. Protocol: Lexiscan Stress ECG Details Stage: REST Duration (min): 5 min : 49 sec HR (bpm): 78 SBP (mmHg): 120 DBP (mmHg): 78 Stage: REST Duration (min): 10 min : 47 sec HR (bpm): 78 SBP (mmHg): 120 DBP (mmHg): 78 Stage: STAGE 1 Duration (min): 0 min : 59 sec HR (bpm): 78 SBP (mmHg): 117 DBP (mmHg): 80 Stage: RECOVERY Duration (min): 1 min : 0 sec HR (bpm): 86 SBP (mmHg): 109 DBP (mmHg): 75 Stage: RECOVERY Duration (min): 2 min : 0 sec HR (bpm): 87 SBP (mmHg): 109 DBP (mmHg): 75 Stage: RECOVERY Duration (min): 3 min : 0 sec HR (bpm): 87 SBP (mmHg): 123 DBP (mmHg): 82 Stage: RECOVERY Duration (min): 3 min : 3 sec HR (bpm): 88 SBP (mmHg): 123 DBP (mmHg): 82 Rest HR: 78 bpm Peak HR: 88 bpm Rest Sys BP: 120 mmHg Peak Sys BP: 123 mmHg Max Pred HR: 154 bpm % Max Pred HR: 57 % Target HR: 131 bpm Max RPP: 10,824 bpm*mmHg Termination Reason: Completed protocol Cardiac Symptoms: Shortness of breath Total Time: 1 min : 0 sec Rest [place] BP: 78 mmHg Peak [place] BP: 82 mmHg Total Dose: 0.4 mg Resting ECG Sinus rhythm, RBBB, LPFB. Stress ECG No ST changes. Arrhythmias None. Report Signatures
[2019-07-16] MEDS: AMIODARONE HCL 200 MG TABLET PO ×2 (09:09→17:59)
[2019-07-16] MEDS: SPIRONOLACTONE 12.5 MG TABLET PO (09:09)
[2019-07-16] MEDS: POTASSIUM CHLORIDE 20 MEQ TABLET.ER PO ×2 (09:09→17:59)
[2019-07-16] MEDS: ASPIRIN 81 MG ENTERIC TABLET PO (09:09)
[2019-07-16] MEDS: lisinopriL 5 MG TABLET PO ×2 (09:09→17:58)
[2019-07-16] MEDS: POTASSIUM CHLORIDE 20 MEQ TABLET 40 MEQ PO (09:09)
[2019-07-16] MEDS: MAGNESIUM OXIDE 400 MG TABLET PO ×2 (09:09→17:59)
[2019-07-16] MEDS: carvediloL 6.25 MG TABLET PO ×2 (09:10→21:41)
[2019-07-16] MEDS: FUROSEMIDE INJ 40 MG/4 ML VIAL IV PUSH (09:10)
[2019-07-16 12:23] LABS: Glucose Point of Care 231 (65-105)
--- NOTE | 2019-07-16 13:48 | PM.PNCARD ---
Progress Note: A&P Assessment and Plan (1) Acute combined systolic and diastolic heart failure: Code(s): I50.41 - Acute combined systolic (congestive) and diastolic (congestive) heart failure Status: Acute Assessment and Plan: Continue with diuresis. Replete potassium and Mag. 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 Lexiscan myoviw shows scar in inferior wall and lateral wall but no reversible ischemia; EF 28%. Change Lasix 40 mg IV BID to 40 mg PO BID. On Coreg 6.25 mg BID and Lisinopril 5 mg BID (instead of Entresto due to cost, per patient). On Spironolactone 12.5 mg daily which will conserve potassium and increase diuresis. Life Vest to prevent sudden cardiac arrest, and patient is interested only if affordable. OBtain BMP and Mag in 4 days. F/U with me in 1-2 weeks. (2) Elevated liver function tests: Code(s): R94.5 - Abnormal results of liver function studies Status: Acute Assessment and Plan: Due to passive liver congestion, likely. Liver enzymes improving with diuresis. (3) PAT (paroxysmal atrial tachycardia): Code(s): I47.1 - Supraventricular tachycardia Status: Acute (4) NSVT (nonsustained ventricular tachycardia): Code(s): I47.2 - Ventricular tachycardia Status: Acute Assessment and Plan: Start Amiodarone 200 mg PO BID to prevent NSVT and PAT. (5) Apical mural thrombus: Code(s): I51.3 - Intracardiac thrombosis, not elsewhere classified Status: Acute Assessment and Plan: No plan for cardiac cath given no ischemia on nuclear stress test. Discussed with patient about anticoagulation with Warfarin and he is willing to go on this and get relatively frequent INR checks to maintain INR 2-3. Start Warfarin 2.5 mg daily, given he is on Amiodarone and he has transaminitis. Obtain INR in 4 days. Subjective Date/time seen: 07/16/19 13:48 Denies chest pain or sob. Exam Const: General: comfortable and no acute distress Neck: Neck: no JVD Carotids: no bruits Resp: Auscultation: clear to auscultation bilaterally, no crackles, no rales, no rhonchi and no wheezes Cardio: Rate: regular rate Rhythm: regular rhythm Heart sounds: no murmurs GI: Inspection: non-distended Neuro: Speech: normal speech Extrem: Right lower extremity: no edema Left lower extremity: no edema Objective Data Vital Signs Vital Signs: Vital Signs - 24 hr 07/15/19 14:00 07/15/19 16:00 07/15/19 16:19 Temperature 98.2 F Pulse Rate 89 77 86 Respiratory Rate 16 Blood Pressure 100/63 Pulse Oximetry 97 07/15/19 20:00 07/15/19 20:11 07/15/19 22:00 Temperature 98.4 F Pulse Rate 74 76 76 Respiratory Rate 20 Blood Pressure 96/68 L Pulse Oximetry 100 07/16/19 00:00 07/16/19 04:00 07/16/19 05:49 Temperature 98.3 F Pulse Rate 68 72 108 H Respiratory Rate 20 Blood Pressure 105/72 Pulse Oximetry 95 07/16/19 08:00 07/16/19 09:09 07/16/19 09:10 Temperature Pulse Rate 73 108 H 108 H Respiratory Rate Blood Pressure Pulse Oximetry 07/16/19 12:00 Temperature Pulse Rate 79 Respiratory Rate Blood Pressure Pulse Oximetry Intake/Output Intake/Output: Intake & Output 07/13/19 07/14/19 07/15/19 07/16/19 23:59 23:59 23:59 23:59 Intake Total 740 2230 2060 0 Output Total 3500 4000 1775 300 Balance -2760 -1770 285 -300 Meds/Results Medications: Active Medications Generic Name Dose Route Start Last Admin Trade Name Freq PRN Reason Stop Dose Admin Acetaminophen 650 mg 07/13/19 11:30 Tylenol Tablet PO Q4H PRN Mild Pain (1-3) or Fever Hydrocodone Bitart/Acetaminophen 1 tab 07/13/19 11:30 [place] 5-325 Mg PO Q4H PRN Pain Rated 4-6 Amiodarone HCl 200 mg 07/14/19 09:50 07/16/19 09:09 Pacerone PO 200 mg BID CRISTI Administration Aspirin 81 mg 07/14/19 09:00 07/16/19 09:09 Aspirin Ec
[2019-07-16] MEDS: INSULIN ASPART (*BKC) 100 UNITS/ML SUB-Q (15:07)
[2019-07-16 15:29] LABS: Glucose Point of Care 246 (65-105)
--- NOTE | 2019-07-16 15:44 | PM.IMPN ---
Progress Note: A&P Assessment and Plan (1) Pulmonary edema: Qualifiers: Chronicity: chronic Qualified Code(s): J81.1 - Chronic pulmonary edema Code(s): J81.1 - Chronic pulmonary edema Status: Acute Assessment and Plan: Thierno is a 68 year old male who does not have a primary care doctor. The patient is not currently on any medications at this time. The patient came in because of bilateral testicular enlargement for the last 4 days. He has had rhinorrhea, cough, and intermittent midsternal chest pain for roughly the past week. Pt had CT abdomen and pelvis which showed bilateral pleural effusion, and US of scrotum showed normal taste NSR, most likely secondary to exacerbation of CHF, , Echocardiogram showed severe systolic dysfunction with ejection fraction of 20% patient is seen by mixed livestock farm worker and being diuresed with IV Lasix 40 mg b.i.d., Coreg 6.25 mg b.i.d. and lisinopril 5 mg b.i.d. as well as spironolactone 12 5 mg q.day patient clinically symptoms are improving and to continue present management and monitor and venous doppler. Which is negative for DVT however patient does have a cellulitis and being treated, today patient the Lexiscan which showed1. Small to moderate-sized moderate severity infarcts in the circumflex and right coronary artery vascular distributions. No reversible ischemia.. 2. Left ventricular enlargement with global height kidneys is resulting in moderately decreased left ventricular ejection fraction measuring 29%. Patient had a cardiac echo which showed patient has a intraventricular mass patient seen by Cardiology recommended to start warfarin 2.5 mg q.day and monitor frequently, patient was also seen by public health educator and recommended metformin 500 mg b.i.d. glimepiride 2 mg q.day and Lantus 10 units q.day, patient is clinically stable will continue to monitor and possible discharge him tomorrow, will have a PT OT evaluate the patient. (2) Anasarca: Code(s): R60.1 - Generalized edema Status: Acute Assessment and Plan: Continue with IV Lasix. Venous doppler negative for DVT. (3) Cellulitis: Code(s): L03.90 - Cellulitis, unspecified Status: Acute Assessment and Plan: Patient's legs are edematous and has multiple scabs to his lower extremity continue iv vancomycin (4) Elevated liver function tests: Code(s): R94.5 - Abnormal results of liver function studies Status: Acute Assessment and Plan: Hepatic congestion secondary to congestive heart failure with all the anasarca. EF 20%. (5) Elevated blood sugar: Code(s): R73.9 - Hyperglycemia, unspecified Status: Acute Assessment and Plan: hbAic is over 14. Will have public health educator evaluate the patient and further recommendation to follow, plan is above Subjective Date/time seen: 07/16/19 15:44 Interval history: Thierno is a 68 year old male who does not have a primary care doctor. The patient is not currently on any medications at this time. The patient came in because of bilateral testicular enlargement for the last 4 days. He has had rhinorrhea, cough, and intermittent midsternal chest pain for roughly the past week. Pt had CT abdomen and pelvis which showed bilateral pleural effusion, and US of scrotum showed normal taste NSR, most likely secondary to exacerbation of CHF, , Echocardiogram showed severe systolic dysfunction with ejection fraction of 20% patient is seen by mixed livestock farm worker and being diuresed with IV Lasix 40 mg b.i.d., Coreg 6.25 mg b.i.d. and lisinopril 5 mg b.i.d. as well as spironolactone 12 5 mg q.day patient clinically symptoms are improving and to continue present management and monitor and venous doppler. Which is negative for DVT however patient does have a cellulitis and being treated, today patient the Lexiscan which showed1. Small to moderate-sized moderate severity infarcts in the circumflex and right coronary artery vascular distributions. No
[2019-07-16] MEDS: WARFARIN (*PBKC) 2.5 MG TABLET PO (17:58)
[2019-07-16] MEDS: metFORMIN HCL 500 MG TABLET PO (17:59)
[2019-07-16] MEDS: ENOXAPARIN 40 MG/0.4 ML SYRINGE SUB-Q (17:59)
[2019-07-16] MEDS: FUROSEMIDE 40 MG TABLET PO (19:26)
[2019-07-16 22:25] LABS: Glucose Point of Care 224 (65-105)
[2019-07-17] VITALS: PULSE 73
[2019-07-17 02:08] LABS: Hemoglobin 13.4 g/dL (14.0-18.0); Mean Corpuscular HGB Conc 31.9 g/dl (32-36); Mean Corpuscular Hemoglobin 29.7 pg (26-34); Mean Corpuscular Volume 93.1 fl (80-100); Mean Platelet Volume 11.9 fl (7.4-10.4); Platelet Count Result 214 k/mm3 (150-375); Red Blood Count 4.51 M/mm3 (4.6-6.20); Red Cell Distribution Width 13.3 % (11.5-14.5); White Blood Count 6.9 K/mm3 (4.5-10.0)
[2019-07-17 02:16] LABS: Prothrombin Time 13.1 Seconds (11.1-14.7)
[2019-07-17 02:18] LABS: Blood Urea Nitrogen 17 mg/dL (9-20); Calcium 8.3 mg/dL (8.4-10.2); Carbon Dioxide 34 mmol/L (22-30); Chloride 99 mmol/L (98-107); Estimated CRCL calculation 73 ml/min; Estimated Glomerular Filt Rate > 60; Glucose 232 mg/dL (75-110); Potassium 4.1 mmol/L (3.4-5.0); Sodium 133 mmol/L (137-145)
[2019-07-17 02:52] LABS: Vancomycin Trough 18.1 ug/mL (10.0-20.0)
[2019-07-17 04:00] VITALS: PULSE 67
[2019-07-17 05:49] VITALS: BP 90/56; PULSE 71; RESP 18; TEMP 36.7; O2SAT 94
[2019-07-17 07:42] LABS: Glucose Point of Care 185 (65-105)
[2019-07-17 08:00] VITALS: PULSE 71; PULSE 74; RESP 18; O2SAT 94
--- NOTE | 2019-07-17 08:00 | ECG_ITS ---
Measurements Intervals [place] Rate: 79 P: 26 [place]: 248 QRS: 124 QRSD: 151 T: 23 QT: 413 QTc: 474 Interpretive Statements SINUS RHYTHM WITH FIRST DEGREE AV BLOCK RIGHT BUNDLE BRANCH BLOCK LEFT POSTERIOR FASCICULAR BLOCK BASELINE ARTIFACT- I, II, AVR, AVL, AVF, V1-V6 BORDERLINE ECG Electronically Signed On 07-17-2019 9:49:40 CDT by Jovanni Goodman D.O.
--- NOTE | 2019-07-17 08:20 | PM.PNCARD ---
Progress Note: A&P Assessment and Plan (1) Acute combined systolic and diastolic heart failure: Code(s): I50.41 - Acute combined systolic (congestive) and diastolic (congestive) heart failure Status: Acute Assessment and Plan: Continue with diuresis. Replete potassium and Mag. 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 Lexiscan myoviw shows scar in inferior wall and lateral wall but no reversible ischemia; EF 28%. Change Lasix 40 mg IV BID to 40 mg PO BID. On Coreg 6.25 mg BID and Lisinopril 5 mg BID (instead of Entresto due to cost, per patient). On Spironolactone 12.5 mg daily which will conserve potassium and increase diuresis. Received Life Vest on 07/16/19 to prevent sudden cardiac arrest. OBtain CMP and Mag in 3 days. F/U with me in 2 weeks. (2) Elevated liver function tests: Code(s): R94.5 - Abnormal results of liver function studies Status: Acute Assessment and Plan: Due to passive liver congestion, likely. Liver enzymes improving with diuresis. (3) PAT (paroxysmal atrial tachycardia): Code(s): I47.1 - Supraventricular tachycardia Status: Acute (4) NSVT (nonsustained ventricular tachycardia): Code(s): I47.2 - Ventricular tachycardia Status: Acute Assessment and Plan: Start Amiodarone 200 mg PO BID to prevent NSVT and PAT. (5) Apical mural thrombus: Code(s): I51.3 - Intracardiac thrombosis, not elsewhere classified Status: Acute Assessment and Plan: No plan for cardiac cath given no ischemia on nuclear stress test. Discussed with patient about anticoagulation with Warfarin and he is willing to go on this and get relatively frequent INR checks to maintain INR 2-3. Started Warfarin 2.5 mg daily on 07/16/19, given he is on Amiodarone and he has transaminitis. Obtain INR in 3 days on TuesdayJuly 19.. Subjective Date/time seen: 07/17/19 08:20 Denies chest pain or sob. Would like to go home. Exam Const: General: comfortable and no acute distress Neck: Neck: no JVD Carotids: no bruits Resp: Auscultation: clear to auscultation bilaterally, no crackles, no rales, no rhonchi and no wheezes Cardio: Rate: regular rate Rhythm: regular rhythm Heart sounds: no murmurs GI: Inspection: non-distended Neuro: Speech: normal speech Extrem: Right lower extremity: no edema Left lower extremity: no edema Objective Data Vital Signs Vital Signs: Vital Signs - 24 hr 07/16/19 09:09 07/16/19 09:10 07/16/19 12:00 Temperature Pulse Rate 108 H 108 H 79 Respiratory Rate Blood Pressure Pulse Oximetry 07/16/19 14:00 07/16/19 16:00 07/16/19 17:59 Temperature 98.4 F Pulse Rate 76 80 76 Respiratory Rate 16 Blood Pressure 118/72 Pulse Oximetry 98 07/16/19 20:00 07/16/19 21:41 07/16/19 21:57 Temperature 98.5 F Pulse Rate 88 84 87 Respiratory Rate 18 Blood Pressure 102/65 Pulse Oximetry 98 07/17/19 00:00 07/17/19 04:00 07/17/19 05:49 Temperature 98.1 F Pulse Rate 73 67 71 Respiratory Rate 18 Blood Pressure 90/56 L Pulse Oximetry 94 Intake/Output Intake/Output: Intake & Output 07/14/19 07/15/19 07/16/19 07/17/19 23:59 23:59 23:59 23:59 Intake Total 2230 2060 1180 390 Output Total 4000 1775 950 800 Balance -1770 285 230 -410 Meds/Results Medications: Active Medications Generic Name Dose Route Start Last Admin Trade Name Freq PRN Reason Stop Dose Admin Acetaminophen 650 mg 07/13/19 11:30 Tylenol Tablet PO Q4H PRN Mild Pain (1-3) or Fever Hydrocodone Bitart/Acetaminophen 1 tab 07/13/19 11:30 [place] 5-325 Mg PO Q4H PRN Pain Rated 4-6 Amiodarone HCl 200 mg 07/14/19 09:50 07/16/19 17:59 Pacerone PO 200 mg BID CRISTI Administration Aspirin 81 mg 07/14/19 09:00 07/16/19 09:09 Aspirin Ec PO 81 mg QAM CRISTI Administration Carvedilol 6.25 mg 07/13/19 21:00 03
[2019-07-17] MEDS: INSULIN GLARGINE (*BKC) 100 UNITS/ML 20 UNITS SUB-Q (08:24)
[2019-07-17] MEDS: POTASSIUM CHLORIDE 20 MEQ TABLET.ER PO (08:30)
[2019-07-17] MEDS: MAGNESIUM OXIDE 400 MG TABLET PO (08:30)
[2019-07-17] MEDS: lisinopriL 5 MG TABLET PO (08:30)
[2019-07-17] MEDS: FUROSEMIDE 40 MG TABLET PO (08:30)
[2019-07-17] MEDS: GLIMEPIRIDE 2 MG TABLET PO (08:30)
[2019-07-17 08:31] VITALS: PULSE 71
[2019-07-17] MEDS: SPIRONOLACTONE 12.5 MG TABLET PO (08:31)
[2019-07-17] MEDS: metFORMIN HCL 500 MG TABLET PO (08:31)
[2019-07-17] MEDS: AMIODARONE HCL 200 MG TABLET PO (08:31)
[2019-07-17] MEDS: ASPIRIN 81 MG ENTERIC TABLET PO (08:31)
[2019-07-17] MEDS: carvediloL 6.25 MG TABLET PO (08:31)
--- NOTE | 2019-07-17 10:51 | PM.DS ---
DS: Diagnosis Admitting Diagnosis Admitting Diagnosis: Chronic pulmonary edema Discharge Diagnosis (1) Pulmonary edema: Qualifiers: Chronicity: chronic Qualified Code(s): J81.1 - Chronic pulmonary edema Code(s): J81.1 - Chronic pulmonary edema Status: Acute Assessment and Plan: Thierno is a 68 year old male who does not have a primary care doctor. The patient is not currently on any medications at this time. The patient came in because of bilateral testicular enlargement for the last 4 days. He has had rhinorrhea, cough, and intermittent midsternal chest pain for roughly the past week. Pt had CT abdomen and pelvis which showed bilateral pleural effusion, and US of scrotum showed normal taste NSR, most likely secondary to exacerbation of CHF, , Echocardiogram showed severe systolic dysfunction with ejection fraction of 20% patient is seen by fork truck driver and being diuresed with IV Lasix 40 mg b.i.d., Coreg 6.25 mg b.i.d. and lisinopril 5 mg b.i.d. as well as spironolactone 12 5 mg q.day patient clinically symptoms are improving and to continue present management and monitor and venous doppler. Which is negative for DVT however patient does have a cellulitis and being treated, today patient the Lexiscan which showed1. Small to moderate-sized moderate severity infarcts in the circumflex and right coronary artery vascular distributions. No reversible ischemia.. 2. Left ventricular enlargement with global height kidneys is resulting in moderately decreased left ventricular ejection fraction measuring 29%. Patient had a cardiac echo which showed patient has a intraventricular mass patient seen by Cardiology recommended to start warfarin 2.5 mg q.day and monitor frequently, patient was also seen by speech/language therapist and recommended metformin 500 mg b.i.d. glimepiride 2 mg q.day and Lantus 10 units q.day, patient is clinically stable will continue to monitor and possible discharge him tomorrow, will have a PT OT evaluate the patient. (2) Anasarca: Code(s): R60.1 - Generalized edema Status: Acute Assessment and Plan: Continue with IV Lasix. Venous doppler negative for DVT. (3) Cellulitis: Code(s): L03.90 - Cellulitis, unspecified Status: Acute Assessment and Plan: Patient's legs are edematous and has multiple scabs to his lower extremity continue iv vancomycin (4) Elevated liver function tests: Code(s): R94.5 - Abnormal results of liver function studies Status: Acute Assessment and Plan: Hepatic congestion secondary to congestive heart failure with all the anasarca. EF 20%. (5) Elevated blood sugar: Code(s): R73.9 - Hyperglycemia, unspecified Status: Acute Assessment and Plan: hbAic is over 14. Will have speech/language therapist evaluate the patient and further recommendation to follow, plan is above DS: Summary Hospital Course Reason for hospitalization: Dimitry Pa is a 68 year old male who does not have a primary care doctor. The patient is not currently on any medications at this time. The patient came in because of bilateral testicular enlargement for the last 4 days. He has had rhinorrhea, cough, and intermittent midsternal chest pain for roughly the past week. Patient has not had any fever chills. The patient has increased swelling to his lower extremities and he has had increased difficulty breathing. He has not had a previous history of having congestive heart failure in the past. He is not on any medication. The patient does not have any chest pain. His white count is normal. Blood sugar 299. The patient denies being diabetic. He also has multiple healing sores to his lower extremities. Liver enzymes are all elevated. CT scan of the chest was read as moderate size pleural effusion with passive atelectasis at the visualized lung bases. Heterogenous liver enhancement which could be due to congestive heart failure. Bilateral nonobstruc
[2019-07-17 11:30] LABS: Glucose Point of Care 295 (65-105)
[2019-07-17] MEDS: INSULIN ASPART (*BKC) 100 UNITS/ML SUB-Q (11:49)
[2019-07-17 12:00] VITALS: PULSE 75
--- NOTE | 2019-07-17 12:21 | PC.NURSE ---
July 16Jun edits made to correct administering nurse from Amrita Villegas RN to Kong Pedraza RN.
== END 2019-07-17 14:30 | disposition home or self-care (01) | DRG 292 ==
LOC: ANHED 11:36 → ANH2MED 11:53
PROVIDERS: Internal Medicine Cardiovascular Disease; Nurse Practitioner; Admitting Provider Family Medicine; Emergency Provider Emergency Medicine; Visit Provider Family Medicine
DX: I50.43 Acute on chronic combined systolic (congestive) and diastolic (congestive) heart failure (principal); L03.116 Cellulitis of left lower limb; I47.1 Supraventricular tachycardia; L03.115 Cellulitis of right lower limb; R73.9 Hyperglycemia, unspecified; R60.1 Generalized edema; B33.24 Viral cardiomyopathy; I51.3 Intracardiac thrombosis, not elsewhere classified
CPT/HCPCS: 36415; 71046; 74177; 76870; 78452; 80048; 80053; 80202; 81001; 83036; 83735; 83880; 84443; 84484; 85025; 85027; 85610; 85730; 93005; 93017; 93306; 93970; 93976; 96365; 96366; 96367; 96372; 96375; 96376; 97161; 97165; 99285; A9270; A9502; G0378; J1650; J1815; J1940; J2785; J3370; J3475; Q9967

== ENCOUNTER 2019-08-05 13:47 | Inpatient (IN) | payer MEDICARE, MEDICAID, SELFPAY ==
[2019-08-05] VITALS (12 sets, daily range): BP systolic 116–145; BP diastolic 55–87; PULSE 39–82; RESP 13–18; TEMP 33.6–36.6; O2SAT 95–100; BMI 26.2
--- NOTE | ~2019-08-05 | XR_ITS ---
EXAMINATION: XR chest 1V portable EXAM DATE: 08/05/2019 14:11 INDICATION: Syncope. TECHNIQUE: Portable AP frontal chest x-ray was obtained. Comparison is made to prior examination from 07/16/2019. FINDINGS: There is an external Defibrillator. There is cardiomegaly and pulmonary vascular congestion . Probable small pleural effusions. Bibasilar nonspecific airspace disease. There is no pneumothorax suspected. There are no osseous abnormalities identified. Compared to previous examination, there is improvement in the basilar airspace disease and pleural effusions. IMPRESSION: Small bilateral pleural effusions and associated basilar atelectasis, edema and/or pneum onia. Improvement compared to prior study. Reviewed, dictated and finalized at location A. IMPRESSION: Small bilateral pleural effusions and associated basilar atelectas is, edema and/or pneumonia. Improvement compared to prior study.
--- NOTE | ~2019-08-05 | CT_ITS ---
EXAMINATION: CT brain wo con DATE: 08/05/2019 14:53 INDICATION: Syncope TECHNIQUE: Computed tomography (CT) of the head was performed without intravenous contrast. Sagittal and coronal reconstructions were performed. The mA was adjusted according to patient size. Iterative reconstruction technique was employed. The dose-length product was 681.00 mGy-cm. COMPARISON: None FINDINGS: No acute intracranial hemorrhage, acute infarction or abnormal extra axial fluid collection. Symmetri c prominence of the sulci consistent with mild age-appropriate diffuse cerebral volume loss. Ventric les are normal and symmetric. No mass/mass effect. The orbits, paranasal sinuses and mastoid air cell s are normal. Intracranial calcified cerebral atherosclerosis is noted. IMPRESSION: 1. No acute intracranial process. Reviewed, dictated and finalized at location A.
--- NOTE | 2019-08-05 13:54 | ECG_ITS ---
Measurements Intervals [place] Rate: 66 P: -11 MS: 285 QRS: 132 QRSD: 180 T: 33 QT: 515 QTc: 543 Interpretive Statements SINUS RHYTHM WITH FIRST DEGREE AV BLOCK POSSIBLE LEFT ATRIAL ENLARGEMENT RIGHT AXIS DEVIATION RIGHT BUNDLE BRANCH BLOCK BASELINE ARTIFACT- I, III, AVL, V5 ABNORMAL ECG Electronically Signed On 08-05-2019 15:12:29 CDT by Jovanni Goodman D.O.
--- NOTE | 2019-08-05 14:19 | PC.NURSE ---
Patients rectal temp noted to be 92.5, bear hugger applied at this time.
[2019-08-05 14:20] LABS: Basophils Absolute Auto 0.1 K/mm3 (0.0-0.1); Basophils Percent Auto 0.8 % (0.2-1.2); Eosinophils Absolute Auto 0.2 K/mm3 (0-0.3); Eosinophils Percent Auto 2.2 % (0-4.4); Hematocrit 39.5 % (42.0-52.0); Hemoglobin 12.1 g/dL (14.0-18.0); Immature Granulocyte Absolute 0.06 K/mm3 (0.00-0.031); Immature Granulocyte Percent A 0.7 % (0-0.5); Lymphocytes Absolute Auto 0.98 K/mm3 (0.9-3.2); Lymphocytes Percent Auto 11.5 % (18.3-44.2); Mean Corpuscular HGB Conc 30.6 g/dl (32-36); Mean Corpuscular Hemoglobin 29.3 pg (26-34); Mean Corpuscular Volume 95.6 fl (80-100); Mean Platelet Volume 11.1 fl (7.4-10.4); Monocytes Absolute Auto 0.5 K/mm3 (0.1-0.6); Monocytes Percent Auto 5.5 % (2.6-8.5); Neutrophils Absolute Auto 6.7 K/mm3 (1.3-6.7); Neutrophils Percent Auto 79.3 % (45.5-73.1); Platelet Count Result 193 k/mm3 (150-375); Red Blood Count 4.13 M/mm3 (4.6-6.20); Red Cell Distribution Width 13.3 % (11.5-14.5); White Blood Count 8.5 K/mm3 (4.5-10.0)
[2019-08-05 14:29] LABS: INR 1.1; Prothrombin Time 13.4 Seconds (11.1-14.7)
[2019-08-05 14:30] LABS: Partial Thromboplastin Time 25.9 SECONDS (22.3-36.8)
[2019-08-05 14:39] LABS: Alanine Aminotransferase 211 U/L (4-50); Albumin Level 3.9 g/dL (3.5-5.1); Alkaline Phosphatase 419 U/L (38-126); Aspartate Amino Transferase 403 U/L (17-59); Bilirubin,Total 1.4 mg/dL (0.2-1.3); Blood Urea Nitrogen 19 mg/dL (9-20); Calcium 8.9 mg/dL (8.4-10.2); Carbon Dioxide 24 mmol/L (22-30); Chloride 98 mmol/L (98-107); Estimated CRCL calculation 56 ml/min; Estimated Glomerular Filt Rate > 60; Glucose 174 mg/dL (75-110); Potassium 5.6 mmol/L (3.4-5.0); Sodium 135 mmol/L (137-145)
[2019-08-05 14:43] LABS: Magnesium 2.4 mg/dL (1.6-2.3)
[2019-08-05 14:50] LABS: NT Pro B Type Natriuretic Pept 2120 PG/ML (5-100); Troponin I 0.014 ng/mL (0.000-0.034)
--- NOTE | 2019-08-05 14:56 | PC.NURSE ---
Patient pulse noted to be 34, Dr. rodriguez at bedside. Atropine given IVP at this time.
--- NOTE | 2019-08-05 15:00 | ECG_ITS ---
Measurements Intervals [place] Rate: 40 P: 37 [place]: 299 QRS: 137 QRSD: 166 T: 65 QT: 571 QTc: 470 Interpretive Statements SINUS BRADYCARDIA WITH FIRST DEGREE AV BLOCK RIGHT BUNDLE BRANCH BLOCK LEFT POSTERIOR FASCICULAR BLOCK LOW VOLTAGE- LIMB LEADS BASELINE ARTIFACT- II, III, AVF ABNORMAL ECG Electronically Signed On 08-05-2019 15:13:58 CDT by Jovanni Goodman D.O.
[2019-08-05] MEDS: INSULIN HUMAN REGULAR (*BKC) 100 UNITS/ML 10 UNITS IV PUSH (15:06)
[2019-08-05] MEDS: DEXTROSE 50% 25 GM/50 ML SYRINGE IV PUSH (15:07)
[2019-08-05] MEDS: SODIUM BICARBONATE 8.4% 50 MEQ/50 ML VIAL IV PUSH (15:08)
[2019-08-05] MEDS: CALCIUM GLUCONATE 1,000 MG/10 ML VIAL 2000 MG IV PUSH (15:09)
--- NOTE | 2019-08-05 16:54 | ED.SYNCOPE ---
HPI - Syncope General Chief Complaint: Syncope Stated Complaint: vomiting Time Seen by Provider: 08/05/19 13:47 Source: patient, EMS and old records reviewed Mode of arrival: EMS Limitations: clinical condition History of Present Illness HPI narrative: Patient is a 68-year-old male who presents to the emergency department via EMS in third-degree heart block after sustaining a syncopal episode. EMS arrived to find patient poorly responsive on the floor having vomited and appearing pale and diaphoretic. He was responsive to verbal stimuli, but unable to speak and noted to be hypotensive and bradycardic. Heart rate was in the 20s and patient was in obvious complete heart block on monitor technician. EMS initiated transcutaneous pacing with appropriate capture with heart rate in the 60s. IV access was established and patient given IV fluids. On arrival to the emergency department, the patient states he feels much better. When EMS transcutaneous pacing was discontinued, patient was noted to have heart rate in the 60s with readily palpable radial pulses and blood pressure has been normal here. Patient on review of history was recently diagnosed with severe cardiomyopathy. Patient has LifeVest defibrillator in place. Patient was started on numerous new medications including amiodarone and carvedilol. Patient states Dr. Goodman is his manager er. complaint: collapsed Treatments prior to arrival: IV fluids and other (Transcutaneous pacing) Related Data Allergies Allergy/AdvReac Type Severity Reaction Status Date / Time Penicillins Allergy Mild Unknown Verified 08/05/19 14:17 Review of Systems Review of Systems: All systems reviewed & are unremarkable except as noted in HPI and below Cardiovascular: Cardiovascular: Denies chest pain Respiratory: Respiratory: Denies dyspnea Gastrointestinal: Gastrointestinal: Reports vomiting Neurologic: Reports syncope [facility] Past Medical History Medical History (Updated 08/05/19 @ 17:08 by Noy Brito MD) Apical mural thrombus CHF (congestive heart failure) NSVT (nonsustained ventricular tachycardia) PAT (paroxysmal atrial tachycardia) Shoulder fracture, left Staph infection thigh Surgical History Surgical History No significant past surgical history Social History Social History Social History: The patient is . He lives home alone. He still works at [employer]. His daughter and were killed in a car wreck. Leti heart his ejwidi-nj-ick's is durable power insurance attorney for healthcare. He stated that he has never smoked annually drinks about twice a year. The patient stated that he would allow the staff to shock him he went into cardiac arrest but does not want CPR put on a ventilator. Smoking status: Never smoker Alcohol intake: former Substance use: never Gender identity (if verbalized by the patient): Male Spiritual care concerns: No Agree to blood products: Yes Exam Const: General: cooperative, no acute distress, alert and ill appearing Nutritional Appearance: well nourished Orientation/consciousness: patient oriented x3 HENMT: Mouth: Yes lip normal and Yes moist mucous membranes Resp: Effort & Inspection: normal respiratory effort Auscultation: clear to auscultation bilaterally Cardio: Rate: regular rate Rhythm: regular rhythm Peripheral pulses: radial pulses present bilateral 2+ GI: GI Palp: Yes Soft to palpation and No Tenderness to palpation present (GI) Auscultation: normal bowel sounds Skin: General skin exam: pallor and other (Cool to touch, mildly diaphoretic) Neuro: General: patient oriented x3 Cognition (Neuro): normal cognition Speech: normal speech Extrem: General: normal to inspection, full ROM and no clubbing, cyanosis or edema Psych: Mental Status: mental status grossly normal Affect: normal affect Atti
[2019-08-05 17:27] LABS: Troponin I < 0.012 ng/mL (0.000-0.034)
--- NOTE | 2019-08-05 18:20 | PM.CNCAR ---
Assessment and Plan Additional Plan Intermittent CHB, symptomatic, likely related to amiodarone and B-víctor, HFrEF compensated, mild hyperkalemia, plan D/C amidoarone and B-blockers, emergency TV pacer. Con lasix, lisinopril and spironolactone and hold KCL. NPO after midnight for possible permanent pacer ICD in AM History of Present Illness History of Present Illness Consult date/time: 08/05/19 18:20 Consult reason: Other (Syncope) Reason For Visit: Complete Heart Block Narrative: Patient presented with dizziness and near sycope, severe, associated with nausea, fatigeu and vomiting, started today in AM and called EMS who found him on ground with severe bradycardia and HR in 20/sec (vent escape rhythm per ER doc) which improved with temp transcutanous pacer. On arrival on ER he was in sinus suzanne with 1st degree HB, symptoms resolved. While in CT scan for head he developed another episode of bradycardia to 30 with minimal symptoms this time. he was recently discharged from hospital with Dx of acute on chronic CHF with LV thrombus. He was on B-víctor and amiodarone. Review of Systems Review of Systems: All systems reviewed & are unremarkable except as noted in HPI and below PMFSH Surgical History Surgical History No significant past surgical history Social History Social History Social History: The patient is . He lives home alone. He still works at [employer]. His daughter and were killed in a car wreck. Leti heart his aqambg-md-oit's is durable power divorce attorney for healthcare. He stated that he has never smoked annually drinks about twice a year. The patient stated that he would allow the staff to shock him he went into cardiac arrest but does not want CPR put on a ventilator. Smoking status: Never smoker Alcohol intake: former Substance use: never Gender identity (if verbalized by the patient): Male Spiritual care concerns: No Agree to blood products: Yes Meds Home Medications and Allergies Home Medications Medication Instructions Recorded Confirmed Type hydrocodone-acetaminophen 1 tablet PO Q6H PRN #20 tablet 07/13/19 Rx amiodarone [Pacerone] 200 mg PO BID #60 tablet 07/17/19 Rx aspirin 81 mg PO QAM #30 tablet 07/17/19 Rx carvedilol [Coreg] 6.25 mg PO Q12HR #60 tablet 07/17/19 Rx doxycycline hyclate 100 mg PO BID #14 cap 07/17/19 Rx furosemide 40 mg PO BID #60 tablet 07/17/19 Rx glimepiride 2 mg PO DAILY@0800 #30 tablet 07/17/19 Rx hydrocodone-acetaminophen 1 tab PO Q4H PRN #15 tablet 07/17/19 Rx insulin aspart U-100 [Novolog 2 - 5 units SUBCUT TIDWM #2 vial 07/17/19 Rx U-100 Insulin aspart] insulin glargine [Lantus U-100 20 units SUBCUT DAILY@0800 #1 vial 07/17/19 Rx Insulin] lisinopril 5 mg PO BID #60 tablet 07/17/19 Rx magnesium oxide 400 mg PO BID #60 tablet 07/17/19 Rx metformin [Glucophage] 500 mg PO BIDWM #60 tablet 07/17/19 Rx potassium chloride [K-Tab] 20 meq PO BIDWM #60 tablet 07/17/19 Rx spironolactone 12.5 mg PO QAM #15 tablet 07/17/19 Rx warfarin [Coumadin] 2.5 mg PO DAILY@1700 #30 tablet 07/17/19 Rx Allergies Allergy/AdvReac Type Severity Reaction Status Date / Time Penicillins Allergy Mild Unknown Verified 08/05/19 14:17 Vital Signs Vital Signs - 24 hr 08/05/19 13:47 08/05/19 14:18 08/05/19 14:33 Temperature 33.6 C L Pulse Rate 68 70 72 Respiratory Rate 13 13 Blood Pressure 145/86 H 140/87 Pulse Oximetry 100 100 08/05/19 14:57 08/05/19 15:02 08/05/19 15:15 Temperature Pulse Rate 49 L 40 L 39 L Respiratory Rate 18 18 18 Blood Pressure 130/59 L 123/60 116/55 L Pulse Oximetry 97 97 96 08/05/19 15:20 08/05/19 15:53 08/05/19 16:14 Temperature Pulse Rate 82 76 75 Respiratory Rate 16 16 18 Blood Pressure 116/55 L 119/70 120/67 Pulse Oximetry 98 96 95 08/05/19 17:07 Temperature 36.3 C L Pulse Rat
--- NOTE | 2019-08-05 18:30 | WPDCARDPROC ---
Cardiac Cath Procedure Note Date of procedure:: 08/05/19 Performing physician:: Rafa Leger MD Assessment and Plan Additional Plan PROCEDURE: Temprary transvenous pacemaker INDICATION: Intermittent CHB and near syncope HISTORY: Patient developed dizziness and near syncope today and needed transcutaneous pacer. He is on B-víctor and amiodarone since recent admission for CHF and NSVT. Episode was recurrent while in CT scan. PROCEDURE DETAILS: Consent obtained for emergency procedure and Time out done Rt IJ draped and prepped for access and access obtained with modified Seldinger technique with US guidance. 6 F sheath was inserted. Temporary pacer was inserted to RV with fluoroscopy guidance Test was threshold for pacing 0.5 V and setting was put to HR 40 and pacer voltage. Sheath sutured in place CXR shows no pneumothorax and pacermaker in proper position CONCLUSION: Successful insertion of temporary TV pacer RECOMMENDATION: Admit to ICU
--- NOTE | 2019-08-05 19:31 | PC.NURSE ---
This patient, Dimitry Pa, was admitted to Intensive Care Unit-10. Patient/family oriented to hospital policies and general routines including ID bracelet, bed and alarms, visiting hours, pain management, procedures, bathroom and other care routines, personal items, smoking policy, room service/diet, and visiting hours. Valuables list has been completed. Information on how to activate the Rapid Response Team has been discussed. Patient/Family are encouraged to report perceived risks to care and to ask questions if they do not understand what they are told or what they should do.
[2019-08-05 20:16] LABS: Troponin I 0.031 ng/mL (0.000-0.034)
[2019-08-05 21:04] LABS: Glucose Point of Care 189 (65-105)
[2019-08-06] VITALS (12 sets, daily range): BP systolic 129–157; BP diastolic 74–90; PULSE 52–89; RESP 14–20; TEMP 36.4–36.9; O2SAT 93–97
--- NOTE | 2019-08-06 | ECHOL_ITS ---
Patient Info Name: Dimitry Pa Age: 68 years : 1950 Gender: Male Ht: 70 in Wt: 188 lbs BSA: 2.07 m2 HR: 84 bpm BP: 139 / 79 mmHg Heart Rhythm: Paced Technical Quality: Good Exam Date: 08/06/2019 1:42 PM Exam Location: [facility] Patient Status: Inpatient Admit Date: 08/05/2019 Staff Ordering Physician: Jovanni Goodman DO Parking Control Officer: Dimitry Freire RDCS Attending Provider: Sky Salgado MD Referring Physician: Rex COYLE; Exam Type: CA echo limited Study Info Indications I44.2 - Atrioventricular block, complete Limited two-dimensional transthoracic echocardiogram is performed with agitated saline. Strain analysis performed. History/Risk Factors Complete heart block; CHF, ? apical thrombus. Summary 1. Limited echocardiogram to assess EF. 2. Left ventricular chamber dimension is severely enlarged. 3. Severe global hypokinesis except for anterosepum and septal dorsey which appear to be mildly hypokinetic. 4. There is mildly increased left ventricular wall thickness. 5. LV inferoapical thrombus noted. 6. The left ventricular diastolic function is indeterminate. 7. Linear artifact in right ventricle suggestive of catheter(s), pacemaker lead(s), or ICD lead(s). 8. Right ventricular systolic function is reduced. 9. Left atrial chamber dimension is moderately enlarged. 10. Linear artifact in the right atrium suggestive of catheter(s), pacemaker lead(s), or ICD lead(s). 11. There is mild aortic valve sclerosis. 12. There is mild to moderate mitral valve regurgitation. 13. There is mild tricuspid valve regurgitation. Left Ventricle Limited echocardiogram to assess EF. Severe global hypokinesis except for anterosepum and septal dorsey which appear to be mildly hypokinetic. LV inferoapical thrombus noted. Left ventricular chamber dimension is severely enlarged. Left ventricular systolic function is severely reduced, estimated at 20-25%. There is mildly increased left ventricular wall thickness. The left ventricular diastolic function is indeterminate. Right Ventricle Linear artifact in right ventricle suggestive of catheter(s), pacemaker lead(s), or ICD lead(s). Right ventricular systolic function is reduced. Left Atria Left atrial chamber dimension is moderately enlarged. Right Atria Linear artifact in the right atrium suggestive of catheter(s), pacemaker lead(s), or ICD lead(s). Right atrial chamber dimension is normal. Aortic Valve The aortic valve is trileaflet. There is mild aortic valve sclerosis. There is no aortic valve stenosis. There is no aortic valve regurgitation. Pulmonic Valve The pulmonic valve is not well visualized. Mitral Valve There is no mitral valve stenosis. There is mild to moderate mitral valve regurgitation. Tricuspid Valve There is mild tricuspid valve regurgitation. RVSP is not measured. Pericardium/Pleural There is no pericardial effusion. Aorta The aortic root size at the sinus of Valsalva is normal. Tricuspid Valve Name Value Normal TV Regurgitation Doppler TR Peak Velocity 262 cm/s TR Peak Gradient 28 mmHg Ventricles
[2019-08-06 04:58] LABS: Basophils Percent Auto 0.5 % (0.2-1.2); Eosinophils Absolute Auto 0.1 K/mm3 (0-0.3); Eosinophils Percent Auto 0.8 % (0-4.4); Hematocrit 38.8 % (42.0-52.0); Hemoglobin 12.5 g/dL (14.0-18.0); Immature Granulocyte Absolute 0.02 K/mm3 (0.00-0.031); Immature Granulocyte Percent A 0.2 % (0-0.5); Lymphocytes Absolute Auto 0.74 K/mm3 (0.9-3.2); Lymphocytes Percent Auto 8.9 % (18.3-44.2); Mean Corpuscular HGB Conc 32.2 g/dl (32-36); Mean Corpuscular Hemoglobin 29.5 pg (26-34); Mean Corpuscular Volume 91.5 fl (80-100); Mean Platelet Volume 11.2 fl (7.4-10.4); Monocytes Absolute Auto 0.6 K/mm3 (0.1-0.6); Monocytes Percent Auto 6.9 % (2.6-8.5); Neutrophils Absolute Auto 6.9 K/mm3 (1.3-6.7); Neutrophils Percent Auto 82.7 % (45.5-73.1); Platelet Count Result 224 k/mm3 (150-375); Red Blood Count 4.24 M/mm3 (4.6-6.20); Red Cell Distribution Width 13.2 % (11.5-14.5); White Blood Count 8.3 K/mm3 (4.5-10.0)
[2019-08-06 05:12] LABS: INR 1.1; Prothrombin Time 14.3 Seconds (11.1-14.7)
[2019-08-06 05:16] LABS: Blood Urea Nitrogen 27 mg/dL (9-20); Calcium 8.7 mg/dL (8.4-10.2); Carbon Dioxide 30 mmol/L (22-30); Chloride 98 mmol/L (98-107); Estimated CRCL calculation 52 ml/min; Estimated Glomerular Filt Rate 55; Glucose 107 mg/dL (75-110); Potassium 4.7 mmol/L (3.4-5.0); Sodium 134 mmol/L (137-145)
--- NOTE | 2019-08-06 07:00 | ECG_ITS ---
Measurements Intervals [place] Rate: 83 P: 18 PA: 251 QRS: 139 QRSD: 165 T: 28 QT: 455 QTc: 537 Interpretive Statements SINUS RHYTHM WITH FIRST DEGREE AV BLOCK RIGHT BUNDLE BRANCH BLOCK LEFT POSTERIOR FASCICULAR BLOCK ABNORMAL ECG Electronically Signed On 08-06-2019 11:48:59 CDT by Jovanni Goodman D.O.
[2019-08-06] MEDS: PROMETHAZINE HCL 25 MG/ML AMPUL 12.5 MG IV PUSH (08:27)
--- NOTE | 2019-08-06 08:57 | PM.IMHP ---
H&P: HPI History of Present Illness Chief complaint: Complete Heart Block Narrative: Dimitry Pa is a 68 year old male who was discharged from [facility] July 16 after a new diagnosis of acute on chronic systolic congestive heart failure. He was wearing a LifeVest. He was actually doing quite well at home until today. He felt very dizzy lightheaded as if he were going to faint. He became nauseated and vomited. He called 911. When he arrived at the house he got up to try to open the door for them and fell to the floor. They got in and found him on the floor. He was responsive to verbal stimuli but was unable to speak. He was hypotensive and bradycardic with heart rate in the 20s. case monitor showed complete heart block. Transcutaneous pacing was initiated by EMS and heart rate improved to the 60s. He was given IV fluids. When transcutaneous pacing was discontinued in the emergency department he was in sinus rhythm in the 60s. He denied chest pain palpitations dyspnea edema. He denied any prior history of heart disease. Prior to today he was not having any GI upset or changes in bowel or bladder function or abnormal bleeding. He denied any focal weakness or numbness. He denied any visual or auditory changes. Review of Systems Review of Systems: All systems reviewed & are unremarkable except as noted in HPI and below PMFSH Past Medical History Medical History Apical mural thrombus CHF (congestive heart failure) NSVT (nonsustained ventricular tachycardia) PAT (paroxysmal atrial tachycardia) Shoulder fracture, left Staph infection thigh Surgical History Surgical History No significant past surgical history Family History Family History Other Lung cancer Sibling Acute myocardial infarction Social History Social History (Updated 08/06/19 @ 12:02 by Pepe Vazquez MD) Social History: The patient is . He lives home alone. He still works at [employer]. His daughter and were killed in a car wreck. 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 Smoking status: Never smoker Alcohol intake: former Substance use: current Substance use type: does not use Occupation/Education: occupation Additional occupation/education comments: Employed at [employer]. Gender identity (if verbalized by the patient): Male Spiritual care concerns: No Agree to blood products: Yes Meds Home Medications and Allergies Home Medications Medication Instructions Recorded Confirmed Type amiodarone [Pacerone] 200 mg PO BID #60 tablet 07/17/19 08/05/19 Rx aspirin 81 mg PO QAM #30 tablet 07/17/19 08/05/19 Rx carvedilol [Coreg] 6.25 mg PO Q12HR #60 tablet 07/17/19 08/05/19 Rx furosemide 40 mg PO BID #60 tablet 07/17/19 08/05/19 Rx glimepiride 2 mg PO DAILY@0800 #30 tablet 07/17/19 08/05/19 Rx lisinopril 5 mg PO BID #60 tablet 07/17/19 08/05/19 Rx magnesium oxide 400 mg PO BID #60 tablet 07/17/19 08/05/19 Rx metformin [Glucophage] 500 mg PO BIDWM #60 tablet 07/17/19 08/05/19 Rx potassium chloride [K-Tab] 20 meq PO BIDWM #60 tablet 07/17/19 08/05/19 Rx spironolactone 12.5 mg PO QAM #15 tablet 07/17/19 08/05/19 Rx warfarin [Coumadin] 2.5 mg PO DAILY@1700 #30 tablet 07/17/19 08/05/19 Rx Allergies Allergy/AdvReac Type Severity Reaction Status Date / Time Penicillins Allergy Mild Unknown Verified 08/05/19 14:17 Vital Signs Vital Signs - 24 hr 08/05/19 13:47 08/05/19 14:18 08/05/19 14:33 Temperature 92.5 F L Pulse Rate 68 70 72 Respiratory Rate 13 13 Blood Pressure 145/86 H 140/87 Pulse Oximetry 100 100 08/05/19 14:57 08/05/19 15:02 08/05/19 15:15 Temperature Pulse Rate 49 L 40 L 39 L Respiratory Rate 18 18 18 Blood Pressure 130/59 L 123/60 116/55 L Pulse Oximetry 97 97 96 08/05/19 15:20 08/05/19
[2019-08-06 10:05] LABS: Immature Reticulocyte Fraction 3.2 % (3.0-15.9); Reticulocyte Hemoglobin Conten 35.6 pg (28.2-35.7); Reticulocyte Percent 0.38 % (0.7-4.3); Reticulocytes Absolute 0.02 B/L (32.2-175.7)
[2019-08-06 10:49] LABS: Hepatitis B Surface Antigen Negative (Negative)
[2019-08-06 10:55] LABS: HAV RESULT Negative (Negative); Hepatitis B Core IgM Result Negative (Negative)
[2019-08-06 11:04] LABS: Iron 80 ug/dL (49-181); Percent Iron Saturation 25 % (20-50)
[2019-08-06 11:10] LABS: Hepatitis C Virus Antibody Reactive (Negative)
[2019-08-06 12:08] LABS: Free T4 Free Thyroxine Reflex 1.26 ng/dL (0.78-2.19)
--- NOTE | 2019-08-06 12:34 | PM.PNCARD ---
Progress Note: A&P Assessment and Plan (1) PAT (paroxysmal atrial tachycardia): Code(s): I47.1 - Supraventricular tachycardia Status: Acute (2) Apical mural thrombus: Code(s): I51.3 - Intracardiac thrombosis, not elsewhere classified Status: Acute Assessment and Plan: Resume warfarin once pacemaker or ICD is placed. Stressed the importance of regular INR checks. (3) NSVT (nonsustained ventricular tachycardia): Code(s): I47.2 - Ventricular tachycardia Status: Acute Assessment and Plan: Was on Amiodarone which are on hold for bradycardia. (4) Systolic and diastolic CHF, chronic: Code(s): I50.42 - Chronic combined systolic (congestive) and diastolic (congestive) heart failure Status: Acute Assessment and Plan: Check echo. If EF<35%, then he would need ICD and would have to be transferred for it. He chooses to go to [facility] for it. If EF >35%, then he would need a dual chamber pacemaker and that can be done here, and due to needing to be on beta víctor and Amiodarone, he would benefit from pacemaker insertion. (5) Bradycardia: Code(s): R00.1 - Bradycardia, unspecified Status: Acute (6) NICM (nonischemic cardiomyopathy): Code(s): I42.8 - Other cardiomyopathies Status: Acute Subjective Date/time seen: 08/06/19 12:34 68 yr old man with a history of NICM probably viral induced, DM, conduction abnormality incuding RBBB, LFPB, first degree AV block, LV apical thrombus whopresented with dizziness and near sycope. He had severe dizziness, associated with nausea, fatigue and vomiting and called EMS who found him on ground with severe bradycardia and HR in 20/sec (vent escape rhythm per ER doc) which improved with temp transcutanous pacer. On arrival on ER he was in sinus suzanne with 1st degree HB, symptoms resolved. While in CT scan for head he developed another episode of bradycardia to 30 with minimal symptoms this time. Currently he has no more symptoms of dizziness or nausea. Denies chest pain or sob. He did not get his INR regularly as instructed and states partly since he works 6 days a week at [employer]. On Telemetry his HR is at 70-80 bpm off of Amiodarone and Coreg which are being held. Exam Const: General: comfortable and no acute distress Neck: Neck: no JVD Carotids: no bruits Resp: Auscultation: clear to auscultation bilaterally, no crackles, no rales, no rhonchi and no wheezes Cardio: Rate: regular rate Rhythm: regular rhythm Heart sounds: no murmurs GI: Inspection: non-distended Neuro: Speech: normal speech Extrem: Right lower extremity: no edema Left lower extremity: no edema Objective Data Vital Signs Vital Signs: Vital Signs - 24 hr 08/05/19 13:47 08/05/19 14:18 08/05/19 14:33 Temperature 92.5 F L Pulse Rate 68 70 72 Pulse Rate [Bilateral Pedal (Dorsalis Pedis) Palpation] Respiratory Rate 13 13 Blood Pressure 145/86 H 140/87 Pulse Oximetry 100 100 08/05/19 14:57 08/05/19 15:02 08/05/19 15:15 Temperature Pulse Rate 49 L 40 L 39 L Pulse Rate [Bilateral Pedal (Dorsalis Pedis) Palpation] Respiratory Rate 18 18 18 Blood Pressure 130/59 L 123/60 116/55 L Pulse Oximetry 97 97 96 08/05/19 15:20 08/05/19 15:53 08/05/19 16:14 Temperature Pulse Rate 82 76 75 Pulse Rate [Bilateral Pedal (Dorsalis Pedis) Palpation] Respiratory Rate 16 16 18 Blood Pressure 116/55 L 119/70 120/67 Pulse Oximetry 98 96 95 08/05/19 17:07 08/05/19 20:00 08/05/19 22:00 Temperature 97.4 F L 97.9 F Pulse Rate 76 79 78 Pulse Rate [Bilateral Pedal (Dorsalis Pedis) Palpation] Respiratory Rate 18 13 18 Blood Pressure 126/78 123/80 132/79 Pulse Oximetry 99 95 95 08/06/19 00:00 08/06/19 02:00 08/06/19 04:00 Temperature 98 F 97.6 F Pulse Rate 80 76 75 Pulse Rate [Bilateral Pedal (Dorsalis Pedis) Palpation] Respiratory Rate 14 14 14 Blood Pressure 133/78 129/79 142/74 H Pulse Oximetry
[2019-08-06 13:05] LABS: Glucose Point of Care 122 (65-105)
--- NOTE | 2019-08-06 13:43 | WPDCNINT ---
Assessment and Plan Assessment and plan (1) Complete heart block: Code(s): I44.2 - Atrioventricular block, complete Status: Acute Assessment and Plan: patient complete heart block, - discussed with Cardiology, will get limited echo, EF remains less than 35-40%, patient be transferred to a tertiary hospital for defibrillator - continue transvenous pacemaker, rate set at 40 per cardiology - hold all AV rai blockers (2) CHF (congestive heart failure): Qualifiers: Heart failure chronicity: unspecified Heart failure type: unspecified Qualified Code(s): I50.9 - Heart failure, unspecified Code(s): I50.9 - Heart failure, unspecified Status: Acute Assessment and Plan: echocardiogram on 07/13/2019: showed an EF of 20-25%, along with diastolic dysfunction. Moderate aortic valve sclerosis, mild to moderate mitral valve regurg, - will continue to monitor fluid intake and urine output. Will maintain euvolemia (3) NICM (nonischemic cardiomyopathy): Code(s): I42.8 - Other cardiomyopathies Status: Acute Assessment and Plan: nonischemic cardiomyopathy EF of 20-25% as above. Patient to get a limited echo today (4) PAT (paroxysmal atrial tachycardia): Code(s): I47.1 - Supraventricular tachycardia Status: Acute Assessment and Plan: currently with complete heart block, continue to monitor temporary venous pacemaker (5) Apical mural thrombus: Code(s): I51.3 - Intracardiac thrombosis, not elsewhere classified Status: Acute Assessment and Plan: patient on Coumadin as outpatient, currently on hold for possible pacemaker and/or AICD - will discuss with Cardiology (6) NSVT (nonsustained ventricular tachycardia): Code(s): I47.2 - Ventricular tachycardia Status: Acute Assessment and Plan: continue to monitor (7) Elevated liver function tests: Code(s): R94.5 - Abnormal results of liver function studies Status: Acute Assessment and Plan: could be related to vascular congestion your CHF. - Repeat labs pending - you to monitor Additional Plan discussed with patient updated with his condition and plan of care. 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 He has been wearing a life [place]. Patient presented to the ED on 08/05/2019 for dizziness, lightheadedness and syncopal episode. He also had a episode of nausea and vomiting. He called 911. When EMS arrived he he got up to open the daughter further med fell to the floor , the EMS found him on the floor, he was responsive to verbal stimuli but unable to speak. Was also hypotensive and bradycardic with heart rate in the 20s. hall monitor showed complete heart block. Patient was transcutaneous sleep paced EMS and heart rate improved to the 60s. , patient was given IV fluids with improvement in blood pressures. Patient denies any chest pain, dyspnea, edema. Denies any focal weakness or numbness. He denies any visual or auditory changes. CT scan of the head did not show any intracranial abnormalities. Chest x-ray showed small bilateral pleural effusions and associated bilateral atelectasis. Transvenous pacemaker was placed by cardiology in the ED and patient was transfer the ICU for further management. Patient seen and examined the ICU this morning. Is hemodynamically stable, heart rate in the 60s to 80s. Intermittently dips down into the 40s. urine output has
[2019-08-06 14:13] LABS: Alanine Aminotransferase 255 U/L (4-50); Albumin Level 3.2 g/dL (3.5-5.1); Alkaline Phosphatase 360 U/L (38-126); Aspartate Amino Transferase 171 U/L (17-59); Bilirubin,Total 0.6 mg/dL (0.2-1.3); Lactate Dehydrogenase 562 U/L (313-618)
[2019-08-06 15:55] LABS: Total Triiodothyronine (T3) 0.59 NG/ML (0.97-1.69)
[2019-08-06] MEDS: AMIODARONE HCL 200 MG TABLET PO (16:41)
[2019-08-06] MEDS: FUROSEMIDE 40 MG TABLET PO (16:41)
[2019-08-06] MEDS: MAGNESIUM OXIDE 400 MG TABLET PO (16:42)
[2019-08-06 18:17] LABS: Glucose Point of Care 98 (65-105)
--- NOTE | 2019-08-06 18:42 | P.TS_ITS ---
Transfer Discharge Sum: Prov Provider Date of admission: 08/05/19 16:52 Primary care physician: LEARNING ENGINEER PHYSICIAN Admitting clinician: Levi Salgado MD Consults: 08/05/19 16:48 Consult to Physician Routine Comment: Consulting Provider: Jojo Olivas Reason for consultation: ICU Has provider been notified: Yes 08/05/19 16:49 Consult to Physician Routine Comment: Consulting Provider: Rafa Leger Reason for consultation: Complete Heart Block Has provider been notified: Yes 08/06/19 Care Coordination Consult Routine Comment: Pt states he cant afford insulin Reason for Consult:: Financial Consult to Physician Routine Comment: NOTIFIED THIS IS HIS PT Consulting Provider: Jovanni Goodman Reason for consultation: JOHNSON PATIENT Has provider been notified: Yes DS: Diagnosis Admitting Diagnosis Admitting Diagnosis: Atrioventricular block, complete Discharge Diagnosis (1) Complete heart block: Code(s): I44.2 - Atrioventricular block, complete Status: Acute Assessment and Plan: * Because of his baseline conduction abnormalities, including right bundle- branch block and left anterior fascicular block, patient is at high risk for third-degree AV block * However this episode was likely drug-induced due to his beta-víctor and hyperkalemia related to Wang inhibitor and spironolactone * Cardiology has seen and placed temporary pacemaker * Hold aforementioned medications * Monitor in ICU with temporary pacemaker in place * Echocardiogram SHOWED NO IMPROVEMENT IN LV FUNCTION * Transfer to [facility] to evaluate for AICD (2) CHF (congestive heart failure): Qualifiers: Heart failure chronicity: unspecified Heart failure type: unspecified Qualified Code(s): I50.9 - Heart failure, unspecified Code(s): I50.9 - Heart failure, unspecified Status: Acute Assessment and Plan: * Cardiomyopathy with EF 20-25% * As not improving hes a candidate for AICD/pacemaker (3) PAT (paroxysmal atrial tachycardia): Code(s): I47.1 - Supraventricular tachycardia Status: Acute Assessment and Plan: * Monitor on telemetry (4) Apical mural thrombus: Code(s): I51.3 - Intracardiac thrombosis, not elsewhere classified Status: Acute Assessment and Plan: * Noncompliant with anticoagulation and lab follow-up * Withhold anticoagulation pending decision regarding pacemaker and AICD * Discussed with cardiology 08/05 (5) NSVT (nonsustained ventricular tachycardia): Code(s): I47.2 - Ventricular tachycardia Status: Acute Assessment and Plan: * Monitor on telemetry (6) Elevated liver function tests: Code(s): R94.5 - Abnormal results of liver function studies Status: Acute Assessment and Plan: * Possibly due to hepatic congestion * Less likely drug effect * Viral hepatitis POSITIVE FOR HEPATITIS C ANTIBODIES, QUANTITATIVE RNA PENDING * CT scan abd/pelvis last month was c/w hepatic congestion and w/o structural lesions (7) Anemia: Code(s): D64.9 - Anemia, unspecified Status: Acute Assessment and Plan: * No clear etiology * Stool for occult blood * Iron, TIBC, B12, folate, retic count ALL NEGATIVE * C/w Anemia of chronic disease (perhaps Hepatitis C) Transfer Discharge Sum: Med Medications Active and Home Medications: Home Medications amiodarone [Pacerone]
--- NOTE | 2019-08-06 18:42 | PM.TDS ---
Transfer Discharge Sum: Prov Provider Date of admission: 08/05/19 16:52 Primary care physician: PAINTING MANAGER PHYSICIAN Admitting clinician: Levi Salgado MD Consults: 08/05/19 16:48 Consult to Physician Routine Comment: Consulting Provider: Jojo Olivas Reason for consultation: ICU Has provider been notified: Yes 08/05/19 16:49 Consult to Physician Routine Comment: Consulting Provider: Rafa eLger Reason for consultation: Complete Heart Block Has provider been notified: Yes 08/06/19 Care Coordination Consult Routine Comment: Pt states he cant afford insulin Reason for Consult:: Financial Consult to Physician Routine Comment: NOTIFIED THIS IS HIS PT Consulting Provider: Jovanni Goodman Reason for consultation: JOHNSON PATIENT Has provider been notified: Yes DS: Diagnosis Admitting Diagnosis Admitting Diagnosis: Atrioventricular block, complete Discharge Diagnosis (1) Complete heart block: Code(s): I44.2 - Atrioventricular block, complete Status: Acute Assessment and Plan: Because of his baseline conduction abnormalities, including right bundle-branch block and left anterior fascicular block, patient is at high risk for third-degree AV block However this episode was likely drug-induced due to his beta-víctor and hyperkalemia related to Wang inhibitor and spironolactone Cardiology has seen and placed temporary pacemaker Hold aforementioned medications Monitor in ICU with temporary pacemaker in place Echocardiogram SHOWED NO IMPROVEMENT IN LV FUNCTION Transfer to [facility] to evaluate for AICD (2) CHF (congestive heart failure): Qualifiers: Heart failure chronicity: unspecified Heart failure type: unspecified Qualified Code(s): I50.9 - Heart failure, unspecified Code(s): I50.9 - Heart failure, unspecified Status: Acute Assessment and Plan: Cardiomyopathy with EF 20-25% As not improving hes a candidate for AICD/pacemaker (3) PAT (paroxysmal atrial tachycardia): Code(s): I47.1 - Supraventricular tachycardia Status: Acute Assessment and Plan: Monitor on telemetry (4) Apical mural thrombus: Code(s): I51.3 - Intracardiac thrombosis, not elsewhere classified Status: Acute Assessment and Plan: Noncompliant with anticoagulation and lab follow-up Withhold anticoagulation pending decision regarding pacemaker and AICD Discussed with cardiology 08/05 (5) NSVT (nonsustained ventricular tachycardia): Code(s): I47.2 - Ventricular tachycardia Status: Acute Assessment and Plan: Monitor on telemetry (6) Elevated liver function tests: Code(s): R94.5 - Abnormal results of liver function studies Status: Acute Assessment and Plan: Possibly due to hepatic congestion Less likely drug effect Viral hepatitis POSITIVE FOR HEPATITIS C ANTIBODIES, QUANTITATIVE RNA PENDING CT scan abd/pelvis last month was c/w hepatic congestion and w/o structural lesions (7) Anemia: Code(s): D64.9 - Anemia, unspecified Status: Acute Assessment and Plan: No clear etiology Stool for occult blood Iron, TIBC, B12, folate, retic count ALL NEGATIVE C/w Anemia of chronic disease (perhaps Hepatitis C) Transfer Discharge Sum: Med Medications Active and Home Medications: Home Medications amiodarone [Pacerone] 200 mg PO BID #60 tablet 07/17/19 [Rx Confirmed 08/05/19] aspirin 81 mg PO QAM #30 tablet 07/17/19 [Rx Confirmed 08/05/19] carvedilol [Coreg] 6.25 mg PO Q12HR #60 tablet 07/17/19 [Rx Confirmed 08/05/19] furosemide 40 mg PO BID #60 tablet 07/17/19 [Rx Confirmed 08/05/19] glimepiride 2 mg PO DAILY@0800 #30 tablet 07/17/19 [Rx Confirmed 08/05/19] lisinopril 5 mg PO BID #60 tablet 07/17/19 [Rx Confirmed 08/05/19] magnesium oxide 400 mg PO BID #60 tablet 07/17/19 [Rx Confirmed 08/05/19] metformin [Glucophage] 500 mg PO BIDWM #60 tablet 07/17/19
[2019-08-09 09:54] LABS: Hepatitis C RNA, Quant PCR <15 IU/mL
== END 2019-08-06 19:30 | disposition short-term general hospital (02) | DRG 308 ==
LOC: ANHED 16:58 → ANHICU 17:08
PROVIDERS: Internal Medicine Interventional Cardiology; Admitting Provider Internal Medicine; Emergency Provider Emergency Medicine; Visit Provider Internal Medicine
PROC: 5A1223Z Performance of Cardiac Pacing, Continuous (ICD-10-PCS; CPT 33210; principal; 2019-08-05 17:15)
DX: I44.2 Atrioventricular block, complete (principal); I50.23 Acute on chronic systolic (congestive) heart failure; E87.5 Hyperkalemia; D64.9 Anemia, unspecified; R94.5 Abnormal results of liver function studies; I47.2 Ventricular tachycardia; I51.3 Intracardiac thrombosis, not elsewhere classified; Z91.14 Patient's other noncompliance with medication regimen
CPT/HCPCS: 33210; 36415; 70450; 71045; 80048; 80053; 80076; 82607; 82746; 83540; 83550; 83615; 83735; 83880; 84439; 84443; 84480; 84484; 85025; 85046; 85610; 85730; 86705; 86709; 86803; 87340; 87522; 93005; 93308; 96374; 96375; 99285; A9270; C1894; J0610; J1644; J1815; J2550; J7040

== ENCOUNTER 2019-08-10 08:49 | Outpatient (CLI) | payer MEDICARE, MEDICAID, SELFPAY ==
[2019-08-10 09:28] LABS: INR 1.2; Prothrombin Time 14.5 Seconds (11.1-14.7)
[2019-08-10 09:35] LABS: Alanine Aminotransferase 83 U/L (4-50); Alkaline Phosphatase 318 U/L (38-126); Aspartate Amino Transferase 45 U/L (17-59); Bilirubin,Total 0.9 mg/dL (0.2-1.3); Blood Urea Nitrogen 18 mg/dL (9-20); Calcium 9.1 mg/dL (8.4-10.2); Carbon Dioxide 36 mmol/L (22-30); Chloride 93 mmol/L (98-107); Estimated Glomerular Filt Rate > 60; Glucose 219 mg/dL (75-110); Potassium 4.5 mmol/L (3.4-5.0); Sodium 135 mmol/L (137-145)
== END 2019-08-10 08:50 | disposition home or self-care (01) ==
LOC: ANHLAB 08:52
PROVIDERS: Visit Provider Internal Medicine Cardiovascular Disease
DX: I51.3 Intracardiac thrombosis, not elsewhere classified (principal); I50.41 Acute combined systolic (congestive) and diastolic (congestive) heart failure
CPT/HCPCS: 36415; 80053; 83735; 85610

== ENCOUNTER 2019-08-14 08:58 | Outpatient (CLI) | payer MEDICARE, MEDICAID, SELFPAY ==
[2019-08-14 09:28] LABS: Prothrombin Time 22.3 Seconds (11.1-14.7)
[2019-08-14 09:29] LABS: Blood Urea Nitrogen 22 mg/dL (9-20); Calcium 8.9 mg/dL (8.4-10.2); Carbon Dioxide 36 mmol/L (22-30); Chloride 94 mmol/L (98-107); Estimated Glomerular Filt Rate > 60; Glucose 246 mg/dL (75-110); Magnesium 1.5 mg/dL (1.6-2.3); Potassium 3.9 mmol/L (3.4-5.0); Sodium 135 mmol/L (137-145)
== END 2019-08-14 08:59 | disposition home or self-care (01) ==
PROVIDERS: Visit Provider Internal Medicine Cardiovascular Disease
DX: I50.41 Acute combined systolic (congestive) and diastolic (congestive) heart failure (principal); I51.3 Intracardiac thrombosis, not elsewhere classified
CPT/HCPCS: 36415; 80048; 83735; 85610

== ENCOUNTER 2019-09-14 09:48 | Outpatient (CLI) | payer MEDICARE, MEDICAID, SELFPAY ==
[2019-09-14 10:41] LABS: Cholesterol 153 mg/dL (0-200); HDL Direct 67 mg/dL; Triglycerides 49 mg/dL (<150)
[2019-09-14 10:42] LABS: Alanine Aminotransferase 38 U/L (4-50); Albumin Level 4.3 g/dL (3.5-5.1); Alkaline Phosphatase 224 U/L (38-126); Aspartate Amino Transferase 44 U/L (17-59); Bilirubin,Total 0.5 mg/dL (0.2-1.3); Blood Urea Nitrogen 29 mg/dL (9-20); Carbon Dioxide 29 mmol/L (22-30); Chloride 101 mmol/L (98-107); Estimated Glomerular Filt Rate > 60; Glucose 174 mg/dL (75-110); Magnesium 1.9 mg/dL (1.6-2.3); Potassium 4.6 mmol/L (3.4-5.0); Sodium 137 mmol/L (137-145)
[2019-09-14 10:52] LABS: LDL Cholesterol Direct 69 mg/dL
== END 2019-09-14 09:49 | disposition home or self-care (01) ==
PROVIDERS: Visit Provider Internal Medicine Cardiovascular Disease
DX: I50.42 Chronic combined systolic (congestive) and diastolic (congestive) heart failure (principal); E78.5 Hyperlipidemia, unspecified
CPT/HCPCS: 36415; 80053; 80061; 83735

== ENCOUNTER 2019-10-31 07:57 | Outpatient (RCR) | payer MEDICARE, MEDICAID, SELFPAY ==
[2019-08-30 09:14] LABS: INR 1.5
[2019-09-13 08:32] LABS: INR 1.8; Prothrombin Time 20.3 Seconds (11.1-14.7)
[2019-09-26 08:40] LABS: INR 1.7; Prothrombin Time 19.4 Seconds (11.1-14.7)
[2019-10-03 08:44] LABS: Prothrombin Time 22.1 Seconds (11.1-14.7)
[2019-10-23 09:21] LABS: INR 4.1; Prothrombin Time 38.9 Seconds (11.1-14.7)
== END 2019-11-28 23:59 | disposition home or self-care (01) ==
LOC: ANHLAB 07:57
PROVIDERS: PCP Internal Medicine Cardiovascular Disease; Visit Provider Internal Medicine Cardiovascular Disease
DX: I51.3 Intracardiac thrombosis, not elsewhere classified (principal); I50.41 Acute combined systolic (congestive) and diastolic (congestive) heart failure
CPT/HCPCS: 36415; 85610

== ENCOUNTER 2019-11-05 21:26 | Emergency (ER) | payer MEDICARE, MEDICAID, SELFPAY ==
--- NOTE | ~2019-11-05 | XR_ITS ---
EXAMINATION: XR chest 1V portable INDICATION: Lower limb edema TECHNIQUE: Portable AP chest at 2243 hours COMPARISON: 08/05/2019 FINDINGS: There is stable cardiomegaly. The lungs are free of acute opacities. There is no pleural ef fusion or pneumothorax. A triple lead cardiac pacemaker of the left chest wall ends with leads in exp ected locations. IMPRESSION: 1. Stable cardiomegaly. Reviewed, dictated and finalized at location A. IMPRESSION: 1. Stable cardiomegaly.
[2019-11-05 21:24] VITALS: BP 135/80; PULSE 107; RESP 17; TEMP 37.3; O2SAT 100
--- NOTE | 2019-11-05 22:27 | ECG_ITS ---
Measurements Intervals [place] Rate: 91 P: 55 MD: 172 QRS: 259 QRSD: 172 T: 73 QT: 422 QTc: 521 Interpretive Statements ATRIAL SENSE- ELECTRONIC VENTRICULAR PACEMAKER NO FURTHER INTERPRETATION IS POSSIBLE ATYPICAL ECG Electronically Signed On 11-06-2019 7:16:00 CDT by Jovanni Goodman D.O.
--- NOTE | 2019-11-05 22:46 | ED.GENADULT ---
HPI - General Adult General Chief complaint: Extremity Problem,Nontraumatic Stated complaint: lower extremity edema Time Seen by Provider: 11/05/19 22:25 History of Present Illness HPI narrative: Patient presents for bilateral leg swelling and left hand swelling. He noticed that this afternoon when he was leaving work at [employer]. He is on 2 diuretics, furosemide and spironolactone. He has not missed any doses. He was diagnosed with congestive heart failure a few months back. He sees Dr. Goodman, sales and training specialist for all of his medical needs. Is not been sick recently. He does not complain of any pain. Onset (ago): hour(s) Location: upper extremity and lower extremity Severity: mild Related Data Home Medications Medication Instructions Recorded Confirmed atorvastatin 20 mg tablet 20 mg PO DAILY 08/10/19 09/14/19 carvedilol 6.25 mg tablet 3.125 mg PO Q12H tablet 09/14/19 09/14/19 Allergies Allergy/AdvReac Type Severity Reaction Status Date / Time Penicillins Allergy Mild Unknown Verified 11/05/19 21:30 Review of Systems Review of Systems: Narrative: CONSTITUTIONAL: Denies fever, chills, or sweats. EYES: Denies visual changes, redness, or discharge. ENT: Denies rhinorrhea, congestion, sore throat, or otalgia. CARDIOVASCULAR: Denies chest pain, palpitations, he does have edema of the left hand and both legs. RESPIRATORY: Denies cough or dyspnea. GASTROINTESTINAL: Denies abdominal pain, nausea, vomiting, or diarrhea. GENITOURINARY: Denies dysuria or hematuria. SKIN: Denies rash or itching. MUSCULOSKELETAL: Denies back pain, joint pain, or myalgia. NEUROLOGIC: Denies headache, numbness, or weakness. . [facility] Past Medical History Medical History (Updated 11/05/19 @ 23:22 by Nancy Calderón MD) Apical mural thrombus CHF (congestive heart failure) NSVT (nonsustained ventricular tachycardia) PAT (paroxysmal atrial tachycardia) Shoulder fracture, left Staph infection thigh Surgical History Surgical History History of permanent cardiac pacemaker placement Social History Social History (Updated 11/05/19 @ 22:48 by Nancy Calderón MD) Social History: The patient is . He lives home alone. He still works at home [employer]. His daughter and were killed in a car wreck. 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 Smoking status: Never smoker Alcohol intake: former Substance use: never Additional occupation/education comments: Employed at Home [employer]. Gender identity (if verbalized by the patient): Male Spiritual care concerns: No Agree to blood products: Yes Exam Narrative: Exam Narrative: GENERAL: Well-appearing, well-nourished, and in no acute distress. Thin. HEAD: Normocephalic, atraumatic. EYES: PERRLA and EOMI. ENT: Nares clear, no rhinorrhea or epistaxis. Mucous membranes moist. NECK: Supple. No JVD CHEST: Clear to auscultation. No respiratory distress. Pacemaker on the upper left chest. HEART: Regular rate and rhythm. No murmur heard. Normal peripheral pulses. ABDOMEN: Soft, nontender, nondistended, normal active bowel sounds. EXTREMITIES: Normal range of motion. Moderate swelling of both legs in the left hand. No redness or tenderness. SKIN: Warm, dry, no rash. NEURO: No focal deficits. Alert and oriented x3. PSYCH: Normal mood and affect. Const: General: no acute distress and alert Orientation/consciousness: patient oriented x3 Course Reevaluation(s) Reevaluation #1: Went in to talk to the patient about the medical problems. His swelling could be caused by the congestive heart failure, newly diagnosed anemia, or the proteinuria. He needs a medical doctor to coordinate all this. He also needs a GI doctor since his last colonoscopy was many years ago. He does not report any bleeding from anywhere. But he is on Coumadin. He needs to take a cab ride over home, and does not want to get the Lasix here, because
[2019-11-05 22:48] LABS: Basophils Absolute Auto 0.1 K/mm3 (0.0-0.1); Basophils Percent Auto 0.7 % (0.2-1.2); Eosinophils Percent Auto 10.5 % (0-4.4); Hematocrit 26.8 % (42.0-52.0); Hemoglobin 8.9 g/dL (14.0-18.0); Immature Granulocyte Absolute 0.03 K/mm3 (0.00-0.031); Immature Granulocyte Percent A 0.3 % (0-0.5); Lymphocytes Absolute Auto 1.44 K/mm3 (0.9-3.2); Lymphocytes Percent Auto 14.9 % (18.3-44.2); Mean Corpuscular HGB Conc 33.2 g/dl (32-36); Mean Corpuscular Hemoglobin 31.4 pg (26-34); Mean Corpuscular Volume 94.7 fl (80-100); Monocytes Absolute Auto 0.7 K/mm3 (0.1-0.6); Monocytes Percent Auto 7.1 % (2.6-8.5); Neutrophils Absolute Auto 6.4 K/mm3 (1.3-6.7); Neutrophils Percent Auto 66.5 % (45.5-73.1); Platelet Count Result 268 k/mm3 (150-375); Red Blood Count 2.83 M/mm3 (4.6-6.20); White Blood Count 9.7 K/mm3 (4.5-10.0)
[2019-11-05 22:58] LABS: INR 1.3; Prothrombin Time 15.9 Seconds (11.1-14.7)
[2019-11-05 23:00] LABS: Alanine Aminotransferase 57 U/L (4-50); Alkaline Phosphatase 212 U/L (38-126); Aspartate Amino Transferase 66 U/L (17-59); Bilirubin,Total 0.4 mg/dL (0.2-1.3); Blood Urea Nitrogen 17 mg/dL (9-20); Calcium 8.5 mg/dL (8.4-10.2); Carbon Dioxide 24 mmol/L (22-30); Chloride 101 mmol/L (98-107); Estimated CRCL calculation 73 ml/min; Estimated Glomerular Filt Rate > 60; Glucose 229 mg/dL (75-110); Potassium 4.1 mmol/L (3.4-5.0); Sodium 136 mmol/L (137-145)
[2019-11-05 23:09] LABS: NT Pro B Type Natriuretic Pept 1730 PG/ML (5-100)
[2019-11-06 00:04] VITALS: BP 142/82; PULSE 96; RESP 15; TEMP 36.6; O2SAT 97
== END 2019-11-05 23:56 | disposition home or self-care (01) ==
PROVIDERS: Emergency Provider Emergency Medicine; PCP Internal Medicine Cardiovascular Disease
DX: I89.0 Lymphedema, not elsewhere classified (principal); R80.9 Proteinuria, unspecified; I50.9 Heart failure, unspecified; D64.9 Anemia, unspecified; I51.7 Cardiomegaly; Z95.0 Presence of cardiac pacemaker; Z79.01 Long term (current) use of anticoagulants
CPT/HCPCS: 36415; 71045; 80053; 83880; 85025; 85610; 93005; 99283

== ENCOUNTER 2019-11-30 07:46 | Outpatient (CLI) | payer MEDICARE, MEDICAID, SELFPAY ==
[2019-11-30 08:29] LABS: Basophils Percent Auto 0.5 % (0.2-1.2); Eosinophils Absolute Auto 0.6 K/mm3 (0-0.3); Eosinophils Percent Auto 7.8 % (0-4.4); Hematocrit 30.1 % (42.0-52.0); Hemoglobin 9.8 g/dL (14.0-18.0); Immature Granulocyte Absolute 0.04 K/mm3 (0.00-0.031); Immature Granulocyte Percent A 0.5 % (0-0.5); Lymphocytes Absolute Auto 0.89 K/mm3 (0.9-3.2); Mean Corpuscular HGB Conc 32.6 g/dl (32-36); Mean Corpuscular Hemoglobin 31.9 pg (26-34); Mean Platelet Volume 10.4 fl (7.4-10.4); Monocytes Absolute Auto 0.6 K/mm3 (0.1-0.6); Monocytes Percent Auto 7.8 % (2.6-8.5); Neutrophils Absolute Auto 5.3 K/mm3 (1.3-6.7); Neutrophils Percent Auto 71.4 % (45.5-73.1); Platelet Count Result 261 k/mm3 (150-375); Red Blood Count 3.07 M/mm3 (4.6-6.20); Red Cell Distribution Width 12.1 % (11.5-14.5); White Blood Count 7.4 K/mm3 (4.5-10.0)
[2019-11-30 08:39] LABS: INR 1.5; Prothrombin Time 17.4 Seconds (11.1-14.7)
[2019-11-30 08:45] LABS: Alanine Aminotransferase 33 U/L (4-50); Alkaline Phosphatase 169 U/L (38-126); Anion Gap 7 mmol/L (8-16); Aspartate Amino Transferase 38 U/L (17-59); Bilirubin,Total 0.4 mg/dL (0.2-1.3); Blood Urea Nitrogen 21 mg/dL (9-20); Calcium 8.2 mg/dL (8.4-10.2); Carbon Dioxide 27 mmol/L (22-30); Chloride 103 mmol/L (98-107); Estimated Glomerular Filt Rate > 60; Glucose 264 mg/dL (75-110); Potassium 4.6 mmol/L (3.4-5.0); Sodium 137 mmol/L (137-145)
== END 2019-11-30 07:47 | disposition home or self-care (01) ==
PROVIDERS: PCP Internal Medicine Cardiovascular Disease; Visit Provider Internal Medicine Cardiovascular Disease
DX: I51.3 Intracardiac thrombosis, not elsewhere classified (principal); I50.42 Chronic combined systolic (congestive) and diastolic (congestive) heart failure
CPT/HCPCS: 36415; 80053; 83735; 85025; 85610

== ENCOUNTER 2020-02-08 07:47 | Outpatient (RCR) | payer MEDICARE, MEDICAID, SELFPAY ==
[2019-12-06 08:40] LABS: INR 1.8; Prothrombin Time 20.4 Seconds (11.1-14.7)
[2019-12-13 08:46] LABS: INR 2.2; Prothrombin Time 23.7 Seconds (11.1-14.7)
[2019-12-28 08:57] LABS: INR 3.9; Prothrombin Time 37.3 Seconds (11.1-14.7)
[2020-01-03 09:12] LABS: INR 1.9; Prothrombin Time 21.5 Seconds (11.1-14.7)
[2020-01-09 08:35] LABS: INR 2.8; Prothrombin Time 28.7 Seconds (11.1-14.7)
[2020-01-21 08:29] LABS: INR 2.8; Prothrombin Time 28.7 Seconds (11.1-14.7)
[2020-02-08 08:07] LABS: Prothrombin Time 22.1 Seconds (11.1-14.7)
== END 2020-03-05 23:59 | disposition home or self-care (01) ==
LOC: ANHLAB 07:47
PROVIDERS: PCP Internal Medicine Cardiovascular Disease; Visit Provider Internal Medicine Cardiovascular Disease
DX: I51.3 Intracardiac thrombosis, not elsewhere classified (principal); I50.41 Acute combined systolic (congestive) and diastolic (congestive) heart failure
CPT/HCPCS: 36415; 85610

== ENCOUNTER 2020-05-09 07:59 | Outpatient (RCR) | payer MEDICARE, MEDICAID, SELFPAY ==
[2020-03-21 08:43] LABS: INR 1.7; Prothrombin Time 20.9 Seconds (11.1-14.7)
[2020-04-04 08:30] LABS: INR 1.3
[2020-04-15 08:54] LABS: INR 2.1; Prothrombin Time 23.9 Seconds (11.1-14.7)
[2020-05-09 08:26] LABS: INR 2.6; Prothrombin Time 28.7 Seconds (11.1-14.7)
== END 2020-06-19 23:59 | disposition home or self-care (01) ==
LOC: ANHLAB 07:59
PROVIDERS: PCP Family Medicine; Visit Provider Internal Medicine Cardiovascular Disease
DX: I50.41 Acute combined systolic (congestive) and diastolic (congestive) heart failure (principal)
CPT/HCPCS: 36415; 85610

== ENCOUNTER 2020-05-20 08:45 | Inpatient (IN) | payer MEDICARE, MEDICAID, SELFPAY ==
[2020-05-20] VITALS (13 sets, daily range): BP systolic 125–156; BP diastolic 54–82; PULSE 77–88; RESP 16–18; TEMP 36.8–36.9; O2SAT 97–100; BMI 24.6
--- NOTE | ~2020-05-20 | XR_ITS ---
EXAMINATION: XR chest 1V portable DATE: 05/20/2020 12:36 INDICATION: Congestive heart failure. TECHNIQUE: A single frontal view of the chest was obtained on 2 radiographs. COMPARISON: Chest single view 11/05/2019, CT abdomen and pelvis 07/13/2019 FINDINGS: A calcified left lung nodule is consistent with old granulomatous disease. No pleural effus ion or pneumothorax. Cardiomegaly is noted. There is a left chest pacer with leads in right atrium, r ight ventricle, and coronary sinus. IMPRESSION: 1. Cardiomegaly. Reviewed, dictated and finalized at location A. GLUER IMPRESSION: 1. Cardiomegaly.
--- NOTE | ~2020-05-20 | US_ITS ---
EXAMINATION: US arterial ankle brachial ind DATE: 05/20/2020 11:56 INDICATION: Right foot diabetic ulcer. TECHNIQUE: Segmental pressures and plethysmographic and Doppler waveforms of the brachial and lower e xtremity arteries were obtained. COMPARISON: None. FINDINGS: Right and left brachial artery pressures of 138 mm Hg and 141 mm Hg, respectively, are concordant (no rmal difference <= 30 mmHg). The right ankle-brachial index (THOMAS) could not be measured due to inability to cuff-occlude the arter ies (normal >= 0.9-1.0). The right great toe-brachial index (TBI) is 0.78 (normal >= 0.65). Arterial Doppler waveforms are at least triphasic at the ankle. The left THOMAS could not be measured due to inability to cuff-occlude the arteries. The left TBI is 0.8 4. Arterial Doppler waveforms are biphasic at the ankle. IMPRESSION: 1. No significant arterial occlusive disease. Reviewed, dictated and finalized at location A. E THRU ORDER TAKER
--- NOTE | ~2020-05-20 | CT_ITS ---
EXAMINATION: CTA [facility] EXAM DATE: 05/20/2020 17:41 INDICATION: Peripheral arterial disease, right-sided discoloration. Diabetic wounds. TECHNIQUE: Spiral CTA bilateral lower extremities was performed following intravenous injection of 15 0 mL Omnipaque 350. The dose-length product (DLP) for this examination was 495.34 mGy-cm. The expos ure was tailored according to patient size (auto mA exposure control), and iterative reconstruction ( ASIR) was used as additional dose reduction technique. There is no prior study for comparison. FINDINGS: There is a pathologically enlarged right inguinal lymph node measuring 2.4 x 1.3 cm, measur ed 1.8 x 0.9 on prior study. Could be reactive but metastatic disease or lymphoma also possible. Ther e is bilateral calf foot and ankle edema, greater on the right. The right side demonstrates scattered mild arterial sclerotic disease from the common femoral through the trifurcation with three-vessel runoff to the ankle, foot. There is a deep ulceration with expose d bone along the volar aspect of the 3rd metatarsal head, gas extending along this digit and along th e shaft of the 3rd and 4th metatarsal bones. Osteomyelitis. Given the scattered foci of gas can't exc lude fasciitis. There is erosion of the 2nd metatarsal head. Possible subacute fracture along the bas e of the 3rd metatarsal bone. There is symmetric and robust enhancement of the left common and superficial femoral arteries, with d iminished contrast, enhancement in the popliteal and much less enhancement only minimal enhancement a t the proximal aspect of trifurcation. Difficult to appreciate any contrast in these arteries beyond this, with either severely delayed delivery to these vessels without proximal stenosis, or there comp letely occluded. Probable TURP defect. Bladder is severely distended. IMPRESSION: 1. Ulceration with exposure of right 3rd metatarsal head, osteomyelitis and scattered foci of gas al ermias this digit and between 3rd and 4th metatarsal bones; can't exclude fasciitis. 2. Delayed flow to left calf without proximal stenosis. Delayed flow at popliteal, with trifurcation nonopacified at time of imaging; these vessels could be occluded. 3. Right foot 3 vessel runoff. 4. Possible 3rd metatarsal base subacute stress fracture. 5. Right inguinal lymphadenopathy, could be reactive but malignancy not excludable. Reviewed, dictated and finalized at location B. RISK CASE MANAGER IMPRESSION: 1. Ulceration with exposure of right 3rd metatarsal head, osteomyelitis and sc attered foci of gas along this digit and between 3rd and 4th metatarsal bones; can't exclude fasciitis. 2. Delayed flow to left calf without proximal stenosis. Delayed flow at poplit eal, with trifurcation nonopacified at time of imaging; these vessels could be occluded. 3. Right foot 3 vessel runoff. 4. Possible 3rd metatarsal base subacute stress fracture. 5. Right inguinal lymphadenopathy, could be reactive but malignancy not exclud able.
--- NOTE | ~2020-05-20 | XR_ITS ---
EXAMINATION: XR chest PICC line DATE: 05/23/2020 09:19 INDICATION: Central line placement. TECHNIQUE: A single frontal view of the chest was obtained. COMPARISON: Chest single view 05/20/2020 FINDINGS: A calcified left lung nodule is consistent with old granulomatous disease. No pleural effus ion or pneumothorax. Cardiomegaly is noted. There is a left chest pacer/defibrillator with leads in r ight atrium, right ventricle, and coronary sinus. A right upper extremity peripherally inserted centr al venous catheter (PICC) is seen with tip at the superior cavoatrial junction. IMPRESSION: 1. PICC tip at the superior cavoatrial junction. 2. Cardiomegaly. Reviewed, dictated and finalized at location A. NT ACQUISITION ASSISTANT
--- NOTE | ~2020-05-20 | XR_ITS ---
EXAMINATION: XR foot RT min 3V DATE: 05/20/2020 09:29 INDICATION: Right foot diabetic ulcer. TECHNIQUE: 4 views of right foot were obtained. COMPARISON: None. FINDINGS: There is dorsolateral dislocation of third proximal phalanx with respect to the metatarsal. No acute fracture. There is an erosion of base of third proximal phalanx. There is subchondral scler osis of head of third metatarsal. There is ankylosis of second proximal interphalangeal joint. There is severe osteoarthritis of first and second metatarsophalangeal joints and mild to moderate osteoart hritis of many of the interphalangeal joints and midfoot joints. There are enthesophytes at the poste rior and plantar aspects of calcaneal tuberosity. There is soft tissue gas in the third and fourth di gits and dorsal to the third and fourth metatarsals. IMPRESSION: 1. Erosion of base of third proximal phalanx, consistent with osteomyelitis. Dislocation of third met atarsophalangeal joint. 2. Polyarticular osteoarthritis. Reviewed, dictated and finalized at location A. ER MACHINE OPERATOR IMPRESSION: 1. Erosion of base of third proximal phalanx, consistent with osteomyelitis. Di slocation of third metatarsophalangeal joint. 2. Polyarticular osteoarthritis.
[2020-05-20 09:14] LABS: Glucose Point of Care 341 (65-105)
[2020-05-20 09:24] LABS: Basophils Absolute Auto 0.1 K/mm3 (0.0-0.1); Basophils Percent Auto 0.3 % (0.2-1.2); Eosinophils Percent Auto 0.2 % (0-4.4); Hematocrit 32.1 % (42.0-52.0); Immature Granulocyte Absolute 0.14 K/mm3 (0.00-0.031); Immature Granulocyte Percent A 0.9 % (0-0.5); Lymphocytes Absolute Auto 0.84 K/mm3 (0.9-3.2); Lymphocytes Percent Auto 5.2 % (18.3-44.2); Mean Corpuscular HGB Conc 34.3 g/dl (32-36); Mean Corpuscular Hemoglobin 29.6 pg (26-34); Mean Corpuscular Volume 86.5 fl (80-100); Mean Platelet Volume 10.7 fl (7.4-10.4); Monocytes Absolute Auto 1.3 K/mm3 (0.1-0.6); Monocytes Percent Auto 8.2 % (2.6-8.5); Neutrophils Absolute Auto 13.9 K/mm3 (1.3-6.7); Neutrophils Percent Auto 85.2 % (45.5-73.1); Platelet Count Result 355 k/mm3 (150-375); Red Blood Count 3.71 M/mm3 (4.6-6.20); Red Cell Distribution Width 12.4 % (11.5-14.5); White Blood Count 16.3 K/mm3 (4.5-10.0)
--- NOTE | 2020-05-20 09:36 | ECG_ITS ---
Measurements Intervals Harper Rate: 86 P: 81 NM: 206 QRS: 267 QRSD: 177 T: 55 QT: 450 QTc: 539 Interpretive Statements ATRIAL SENSE- ELECTRONIC VENTRICULAR PACEMAKER VENTRICULAR PREMATURE COMPLEX BASELINE WANDER- I, II, AVL, AVF, V3-V4 NO FURTHER INTERPRETATION IS POSSIBLE ATYPICAL ECG Electronically Signed On 05-20-2020 11:13:02 PAY PER CLICK STRATEGIST by Jovanni Goodman D.O.
[2020-05-20 09:59] LABS: Alanine Aminotransferase 34 U/L (4-50); Albumin Level 3.7 g/dL (3.5-5.1); Alkaline Phosphatase 173 U/L (38-126); Anion Gap 9 mmol/L (8-16); Aspartate Amino Transferase 56 U/L (17-59); Blood Urea Nitrogen 14 mg/dL (9-20); Calcium 8.3 mg/dL (8.4-10.2); Carbon Dioxide 27 mmol/L (22-30); Chloride 86 mmol/L (98-107); Estimated CRCL calculation 91 ml/min; Estimated Glomerular Filt Rate > 60; Glucose 334 mg/dL (75-110); Magnesium 1.9 mg/dL (1.6-2.3); Potassium 4.4 mmol/L (3.4-5.0); Sodium 122 mmol/L (137-145)
[2020-05-20 10:11] LABS: Lactic Acid Reflex 1.3 mmol/L (0.7-2.1)
[2020-05-20 10:26] LABS: Erythrocyte Sedimentation Rate 51 mm/hr (0-20)
[2020-05-20 10:35] LABS: Beta-Hydroxybutyrate/Acetoacetate 1.43 mmol/L (0.02-0.27)
[2020-05-20 10:36] LABS: Troponin I 0.145 ng/mL (0.000-0.034)
--- NOTE | 2020-05-20 11:22 | PC.NURSE ---
pt remains unable to void at this time
[2020-05-20 11:34] LABS: CRP 16.4 mg/dL (<1.0)
--- NOTE | 2020-05-20 11:45 | ED.GENADULT ---
HPI - General Adult General Chief complaint: Extremity Problem,Nontraumatic Stated complaint: dizzy, weakness, hiccups 2 days Time Seen by Provider: 05/20/20 09:17 Source: patient Mode of arrival: ambulatory Limitations: no limitations History of Present Illness HPI narrative: Patient is a 69-year-old male with a history of multiple cardiac conditions as well as diabetes presenting with chief complaint of 2 days of dizziness, hiccups and fatigue. Patient also notes right foot wound that presented 3 days ago. Patient states prior to that he did not note any issues with his feet. Patient has not seen his primary care in approximately 8 months. Patient states he has not been under the care of a copyright expert. Patient states that he does still have sensation to the extremities. Patient denies chest pain or shortness of breath, fever or chills. Patient denies nausea or vomiting or abdominal pain. Patient denies excessive swelling or fluid retention. Related Data Home Medications Medication Instructions Recorded Confirmed doxycycline hyclate 50 mg capsule 50 mg PO DAILY 02/15/20 02/15/20 Allergies Allergy/AdvReac Type Severity Reaction Status Date / Time Penicillins Allergy Mild Unknown Verified 02/15/20 09:16 Review of Systems Review of Systems: Narrative: CONSTITUTIONAL: Reports fatigue and hiccups Denies fever, chills, or sweats. EYES: Denies visual changes, redness, or discharge. ENT: Denies rhinorrhea, congestion, sore throat, or otalgia. CARDIOVASCULAR: Denies chest pain, palpitations, or edema. RESPIRATORY: Denies cough or dyspnea. GASTROINTESTINAL: Denies abdominal pain, nausea, vomiting, or diarrhea. GENITOURINARY: Denies dysuria or hematuria. SKIN:Reports foot wound Denies rash or itching. MUSCULOSKELETAL: Denies back pain, joint pain, or myalgia. NEUROLOGIC: Reports dizziness, Denies headache, numbness, or weakness. PSYCHIATRIC: Denies anxiety or depression. [facility] Past Medical History Medical History Apical mural thrombus CHF (congestive heart failure) NSVT (nonsustained ventricular tachycardia) PAT (paroxysmal atrial tachycardia) Shoulder fracture, left Staph infection thigh Surgical History Surgical History History of permanent cardiac pacemaker placement Family History Family History Other Lung cancer Sibling Acute myocardial infarction Social History Social History Social History: The patient is . He lives home alone. He still works at home [employer]. His daughter and were killed in a car wreck. His niece, Adrianne Pa, is his healthcare power of trust and estates attorney. Smoking status: Never smoker Alcohol intake: never Substance use: never Additional occupation/education comments: Employed at Home [employer]. Gender identity (if verbalized by the patient): Male Spiritual care concerns: No Agree to blood products: Yes Exam Narrative: Exam Narrative: GENERAL: Well-appearing, well-nourished, and in no acute distress. HEAD: Normocephalic, atraumatic. EYES: PERRLA and EOMI. NECK: Supple. No adenopathy or masses. CHEST: Clear to auscultation. No respiratory distress. No wheezes rales or rhonchi HEART: Regular rate and rhythm. ABDOMEN: Soft, nontender, nondistended, normal active bowel sounds. EXTREMITIES: Patients right foot has a 2cm open dry foul smelling ulcer to the plantar aspect at the base of 3rd metatarsal. The 3rd and 4th digits are necrotic and the skin has melted to one another. Patient reports sensation when touched. Patients left foot is dry, white, cool. There are growths on foot and leg. Normal range of motion until ankles. No edema. Unable to appreciate pulses tactilely. SKIN: See extremities. Ulcer and necrosis to right, with plaques to left feet. onycho
[2020-05-20] MEDS: SODIUM CHLORIDE 0.9% IV 1,000 ML 60 ML IV CONT (12:09)
[2020-05-20 12:11] LABS: Glucose Point of Care 317 (65-105)
[2020-05-20] MEDS: INSULIN HUMAN REGULAR (*BKC) 100 UNITS/ML SUB-Q (12:11)
[2020-05-20 13:11] LABS: Glucose Point of Care 299 (65-105)
[2020-05-20 13:23] LABS: Troponin I 0.132 ng/mL (0.000-0.034)
--- NOTE | 2020-05-20 13:59 | PC.NURSE ---
1311- Noman GRANDA notified of repeat blood sugar 299. No further orders received. Will monitor.
[2020-05-20 14:40] LABS: Add Urine Microscopic? YES; Appearance Urine Clear (Clear); Bilirubin Urine Negative (Negative); Blood Urine Negative (Negative); Color Urine Straw (Yellow); Glucose Urine UA 3+ mg/dL (Negative); Ketones Urine Trace mg/dL (Negative); Leukocyte Esterase Ur Negative LEU/UL (Negative); Nitrate Urine Negative (Negative); Protein Urine Negative (Negative); RBC Urine 0-2 /hpf (0-2); Specific Grav Ur 1.007 (1.001-1.035); Urobilinogen Urine Negative mg/dL (<2.0); WBC Urine 0-3 /hpf
--- NOTE | 2020-05-20 14:43 | PM.CNGS ---
Assessment and Plan Assessment and plan (1) Diabetic wet gangrene of the foot: Code(s): E11.52 - Type 2 diabetes mellitus with diabetic peripheral angiopathy with gangrene Status: Acute Assessment and Plan: The patient has a necrotic diabetic ulcer on the plantar aspect of the foot that probes to bone with wet gangrene of the right 3rd toe. Right foot x-ray shows evidence of osteomyelitis of the third proximal phalanx, dislocation of third metatarsophalangeal joint, and polyarticular osteoarthritis. THOMAS's were also done in the ER and showed the right ankle-brachial index could not be measured due to inability to cuff-occlude the arteries, the right great toe-brachial index is 0.78. Arterial Doppler waveforms are at least triphasic at the ankle. The left THOMAS could not be measured due to inability to cuff-occlude the arteries. The left TBI is 0.84. Arterial Doppler waveforms are biphasic at the ankle. Dr. Ewing is at the bedside evaluating the patient with myself and discussed treatment options at this time, including proceeding with bedside excisional debridement of the right foot ulcer. Description of the procedure, risks, benefits, indications, and expected outcomes were discussed with the patient in detail. All questions were answered. The patient agreed to proceed with bedside debridement by Dr. Ewing, which was performed in the ER (see operative note). We also discussed that he will likely require further surgical intervention. We will consider consulting an Orthopedic Surgeon regarding the third proximal phalanx osteomyelitis and possible need for amputation. Wound care nurses have been consulted to help manage local wound care. It does not appear that a wound culture has been done, so I have also ordered this as well. Continue broad-spectrum IV antibiotics and IV fluids. Blood cultures are pending. Thank you for allowing us to see the patient in consultation and we will continue to follow along with you. (2) Acute osteomyelitis of phalanx of right foot: Code(s): M86.171 - Other acute osteomyelitis, right ankle and foot Status: Acute Assessment and Plan: See plan above. Consider orthopedic consultation. (3) Apical mural thrombus: Code(s): I51.3 - Intracardiac thrombosis, not elsewhere classified Status: Acute Assessment and Plan: On Coumadin. Last echo in our records is July 2019. (4) Anticoagulated by anticoagulation treatment: Code(s): Z79.01 - intermodal dispatcher (current) use of anticoagulants Status: Acute Assessment and Plan: Due to apical thrombus. Coumadin on hold, supratherapeutic INR. (5) Supratherapeutic INR: Code(s): R79.1 - Abnormal coagulation profile Status: Acute Assessment and Plan: INR 9.7 on admission. Hold Coumadin. Management per Hospitalist. (6) Systolic and diastolic CHF, chronic: Code(s): I50.42 - Chronic combined systolic (congestive) and diastolic (congestive) heart failure Status: Acute Assessment and Plan: Patient sees Dr. Goodman for Cardiology. 07/13/19 Echocardiogram with EF 20-25%. Had a limited 2D echo on 07/2019 that still showed an LV inferoapical thrombus. (7) NICM (nonischemic cardiomyopathy): Code(s): I42.8 - Other cardiomyopathies Status: Acute (8) Presence of combination internal cardiac defibrillator (ICD) and pacemaker: Code(s): Z95.810 - Presence of automatic (implantable) cardiac defibrillator Status: Acute Additional Plan Evaluated the patient with and formulated plan of care with Dr. Ewing. History of Present Illness Consult details Consult date: 05/20/20 Reason for consult: wound care (Right foot diabetic ulcer with osteomyelitis) Requesting physician: Katey Tineo PA-C Narrative: This is a 69-year-old male with significant cardiac history and also history of type II diabetes mellitus, who presented to the ER with complaints of dizziness and hiccups ongoing
[2020-05-20 14:48] LABS: Sodium Urine Random < 5 meq/L
[2020-05-20 15:03] LABS: Prothrombin Time 77.1 Seconds (11.1-14.7)
[2020-05-20 15:15] LABS: INR 9.7
--- NOTE | 2020-05-20 16:40 | PM.CNOR ---
Assessment and Plan Assessment and plan (1) Acute osteomyelitis of toe of right foot: Code(s): M86.171 - Other acute osteomyelitis, right ankle and foot Status: Acute Assessment and Plan: New patient evaluation for chief complaint Right foot ulcer and infection. History, physical exam and radiographs reviewed with the patient. Discussed the condition, nature, etiology and course of natural history with the patient. Treatment options including surgical and nonoperative treatment were reviewed. Risks and benefits of each as well as alternatives reviewed. The patient's questions were answered. Severe problem given his medical comorbidities and potential arterial disease. High likelihood for loss of foot and limb. Patient started on IV antibiotics. Cultures pending. Agree with wound care at this time. Recommend angiogram to evaluate blood flow to the right foot and possibility of reconstruction. Patient will require amputation of at least the right 3rd ray and possibly 4th toe or ray, possible transmetatarsal amputation or further. Will need results of the angiogram prior to surgical treatment. (2) Diabetic ulcer of right foot associated with diabetes mellitus due to underlying condition: Qualifiers: Diabetic foot ulcer location: other Non-pressure ulcer stage: with necrosis of bone Qualified Code(s): E08.621 - Diabetes mellitus due to underlying condition with foot ulcer; 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 Code(s): E08.621 - Diabetes mellitus due to underlying condition with foot ulcer; L97.519 - Non-pressure chronic ulcer of other part of right foot with unspecified severity Status: Acute (3) Diabetic neuropathy associated with diabetes mellitus due to underlying condition: Qualifiers: Diabetes mellitus complication detail: diabetic polyneuropathy Qualified Code(s): E08.42 - Diabetes mellitus due to underlying condition with diabetic polyneuropathy Code(s): E08.40 - Diabetes mellitus due to underlying condition with diabetic neuropathy, unspecified Status: Acute (4) Peripheral arterial disease: Code(s): I73.9 - Peripheral vascular disease, unspecified Status: Acute Assessment and Plan: pulses not palpable bilateral feet. THOMAS in TBI test showing calcified vessels at the ankle level, not able to be compressed indicating falsely elevated pressures. Recommend CT angiogram bilateral lower extremities to evaluate for arterial disease and potential for revascularizing right foot. History of Present Illness HPI Consult date: 05/20/20 Requesting physician: Katey Tineo PA-C Consult reason: other (Right diabetic foot) Chief complaint: osteomyelitis 3rd metatarsal, hyponatremia and Current symptoms: Reports drainage ( right plantar foot), ulceration ( right plantar foot), odor ( right foot) and numbness ( bilateral plantar foot) Location: foot ( right forefoot, 3rd toe) Duration: 1-3 days Pain scale (0-10): 2 Trigger: other ( patient states unaware of injury. Noted wound with drainage 3 days ago, worsening odor over the past day.) Review of Systems Constitutional: Constitutional: Reports as per HPI, Reports no additional constitutional complaints, Denies chills, Denies fatigue, Denies fever(s), Denies weakness and Reports other (dizziness) Eyes: Eyes: Reports no additional eye complaints, Denies change in vision and Denies loss of vision ENT: Reports system reviewed and no additional complaints, except as documented, Denies dysphagia, Denies dizziness, Denies dry mouth, Denies hearing loss and Denies lip swelling Cardiovascular: Cardiovascular: Reports no additional cardiovascular complaints, Denies chest pain, Denies syncope, Denies radiating jaw, neck or arm pain, Denies dyspnea and Denies dyspnea on exertion Respiratory: Respiratory: Reports no additional respiratory complaints, Denies cough, Denies dys
--- NOTE | 2020-05-20 16:47 | ADMGEN ---
This patient, Dimitry Pa, was admitted to IMU Room 200-01. Patient/family oriented to hospital policies and general routines including ID bracelet, bed and alarms, visiting hours, pain management, procedures, bathroom and other care routines, personal items, smoking policy, room service/diet, and visiting hours. Information on how to activate the Rapid Response Team has been discussed. Patient/Family are encouraged to report perceived risks to care and to ask questions if they do not understand what they are told or what they should do.
--- NOTE | 2020-05-20 17:18 | P.OP_ITS ---
Procedure Note - Detailed Date of procedure: 05/20/20 Pre-op diagnosis: osteomyelitis 3rd metatarsal, hyponatremia and Diabetic foot wound right foot Post-op diagnosis: same Procedure performed: Excisional debridement of skin, subcutaneous fat, and tendon diabetic foot wound and area of abscess of right foot ( area of the 3rd toe). Description of procedure: The area of the black, necrotic 3rd right toe and a bscess area was marked and time-out performed confirming patient and site of required I and D/ Debridement. Following this the area was prepped with chlorhexidine. The area was draped and then because the patient was essentially anesthetic in the area I told him to let me know if he had any pain and I went ahead and excised any loose tissue which included dark black skin on the bottom side and top side of his right 3rd toe, tendon at the base of the right 3rd toe, subcutaneous tissue and skin at the base of his right 3rd toe under the head of the for 3rd metatarsal and out onto the phalanx. I did not take a culture of this area as I assume that the ED had already done so. Following this portion of the procedure we carefully markedwith an indelible marker the most proximal extent of the cellulitis which was extending across the top of his Rt. foot and laterally on his right foot. Subsequently I also cleanse the skin on the anterior surface of both lower legs. He had crusty exudate and very dry skin on both of his legs and foot feet below the level of the knees. Following this the area was dressed using a single chlorhexidine impregnated swab between the 3rd and 4th toes where there was maceration then dry a 2 x 2 was unfolded and packed into the opening under the head of the 3rd metatarsal and others unfolded and placed between his 4th and 5th toe, and the 3rd and 4th toe and the 3rd and 2nd toe. Several 4x4s were placed over these and then it was wrapped with a Kerlix roll. Patient tolerated the procedure well and his leg will be elevated on the floor. Orders for b.i.d. dressing changes are placed in the chart. Anesthesia: none Surgeon: Sanchez Ewing MD Supervising Librarian: Dianna CHOWDHURY Estimated blood loss (mL): 0 Drains: No Packing: Yes ( an unfolded 2 x 2 into the hole on the plantar surface of the 3rd metatars) Pathology: none sent Complications: No immediate complications Condition: stable Disposition: floor (IMU) Findings: a wide-open hole under the 3rd metatarsal head with exposed necrotic tendon and soft tissues. Patient has a black 3rd toe with blistering of the skin and necrosis of soft tissue both on the dorsal and ventral side of its base. There is a palpable dorsalis pedis pulse on the surface of his right foot along with cellulitis extending up more than half of the dorsum of the foot.
--- NOTE | 2020-05-20 17:38 | PM.IMHP ---
H&P: HPI History of Present Illness Date/Time: 05/20/20 17:38 Chief Complaint: Dizziness Narrative: Dimitry Pa is a 69 year old male with a history of NICMP and uncontrolled/untreated DM here for dizziness, hiccups and right foot necrosis. Patient developed dizziness about 3 days ago. He denies any ringing in the ears. Denies any headaches. No lightheadedness. No room spinning. No hearing loss. The dizziness occurs when he looks upward. His Coumadin dose was decreased about a week ago and he felt the dizziness may be related to this. He has also had hiccups over the past 3 days. He has not had this before. No history of seizures. No history strokes. No vision changes. Patient states he walks a lot in his job. He had noted that his right foot was mildly erythematous but about 2 days ago he noted a black area on the right foot. There is no pain. He does carry the diagnosis of diabetic neuropathy but he states he still has some sensation in his feet. He has not had open wounds in his feet before. He has noted increasing odor to the right foot and drainage. He denies any fever or chills. He has a mild cough that is nonproductive. He denies any anosmia or disgeusia. No odynophagia or dysphagia. No weakness in his arms or legs. No weight loss. No chest pain or shortness of breath. No pedal edema. No PND or orthopnea. He is compliant with his Lasix. He has not been eating much over the past few days because he is worried about the hiccups causing nausea. He denies any melena, hematochezia, hematuria or epistaxis. No dysuria. No nausea, vomiting, diarrhea or constipation issues. He checks sugar once every 2 weeks. He has been out of his diabetic medications for quite some time now. Because of the above symptoms, patient presented to the emergency room for evaluation. In the ED, patient was hemodynamically stable. White count is elevated 16,000. INR was 9.7. Sodium 122. Glucose was 334. Troponin was elevated at 0.145. CRP and ESR were elevated. Urine sodium is less than 5. Chest x-ray was clear but does show cardiomegaly. Right foot x-ray showed erosion of the base of the 3rd proximal phalanx consistent with osteomyelitis as well as dislocation of the 3rd metatarsophalangeal joint. Was started on IV antibiotics. Lower extremity arterial Dopplers showed no significant arterial occlusive disease. Lower extremity CTA is pending. Patient has already been seen by general surgery and Orthopedics. Patient had an excisional debridement of skin, subcutaneous fat, and tendon of diabetic foot wound and area of abscess of right foot ( area of the Rt 3rd toe). Patient was admitted to the IMU for further management. Review of Systems Review of Systems: All systems reviewed & are unremarkable except as noted in HPI and below PMFSH Past Medical History Medical History (Updated 05/22/20 @ 10:11 by Sky Salgado MD) Apical mural thrombus CHF (congestive heart failure) Echo 07/13/19 showing EF 20-25%, dilated LV, inferapical thrombus, diastolic dysfunction (E/e' 26), mod LAE, mild-mod TR. Diabetes mellitus Diabetic neuropathy associated with diabetes mellitus due to underlying condition Diabetic ulcer of right foot associated with diabetes mellitus due to underlying condition NICM (nonischemic cardiomyopathy) NSVT (nonsustained ventricular tachycardia) PAT (paroxysmal atrial tachycardia) Peripheral arterial disease Shoulder fracture, left Staph infection thigh Surgical History Surgical History (Updated 05/20/20 @ 17:45 by Sky Salgado MD) History of permanent cardiac pacemaker placement [employer] BiV-ICD placed at [facility] 08/06/19 Family History Family History Other Lung cancer Sibling Acute myocardial infarction Social History Social History (Updated 05/20/20 @ 18:44 by Sky Salgado MD) Social History: The patient is . He lives home alone. He
[2020-05-20 18:43] LABS: Glucose Point of Care 270 (65-105)
[2020-05-20 19:52] LABS: Sodium 129 mmol/L (137-145)
[2020-05-20 20:29] LABS: Glucose Point of Care 313 (65-105)
[2020-05-20] MEDS: PHYTONADIONE 5 MG TABLET 10 MG PO (20:48)
[2020-05-20] MEDS: carvediloL 6.25 MG TABLET PO (20:48)
[2020-05-20] MEDS: lisinopriL 5 MG TABLET PO (20:48)
[2020-05-20] MEDS: ATORVASTATIN 20 MG TABLET PO (20:48)
[2020-05-20] MEDS: SODIUM CHLORIDE 0.9% IV 1,000 ML 70 ML IV CONT (20:50)
[2020-05-20] MEDS: INSULIN DETEMIR 100 UNITS/ML SUB-Q (20:50)
[2020-05-21] VITALS (26 sets, daily range): BP systolic 103–153; BP diastolic 32–89; PULSE 69–88; RESP 12–20; TEMP 36.2–37.9; O2SAT 97–100; BMI 24.9
--- NOTE | 2020-05-21 | ECHO_ITS ---
Patient Info Name: Dimitry Pa Age: 69 years : 1950 Gender: Male Ht: 70 in Wt: 172 lbs BSA: 1.97 m2 HR: 75 bpm BP: 135 / 51 mmHg Heart Rhythm: Sinus Rhythm Technical Quality: Good Exam Date: 05/21/2020 9:22 AM Exam Location: [facility] Patient Status: Inpatient Admit Date: 05/20/2020 Staff Ordering Physician: Sky Salgado MD [employer]iconductor Manufacturing Technician: Dimitry Freire RDCS Attending Provider: Oscar Ruvalcaba MD Exam Type: CA echo doppler color flow Study Info Indications I50.9 - Heart failure, unspecified Complete two-dimensional, color flow and Doppler transthoracic echocardiogram is performed. Strain analysis performed. History/Risk Factors NICM w/ elevated trops. Summary 1. Complete two-dimensional, color flow and Doppler transthoracic echocardiogram is performed. 2. Left ventricular chamber dimension is mildly enlarged. 3. Left ventricular systolic function is moderately reduced, estimated at 40-45%. 4. Stable calcified apical mural thrombus. 5. There is mildly increased left ventricular wall thickness. 6. The left ventricular diastolic function is grade I diastolic dysfunction. 7. E/e' 10 is mildly elevated. 8. Global longitudinal strain is abnormal at -12.9%. 9. Linear artifact in right ventricle suggestive of catheter(s), pacemaker lead(s), or ICD lead(s). 10. Linear artifact in the right atrium suggestive of catheter(s), pacemaker lead(s), or ICD lead(s). 11. There is mild aortic valve sclerosis. 12. The mitral valve has mildly thickened posterior mitral leaflet. 13. There is trace tricuspid valve regurgitation. Left Ventricle E/e' 10 is mildly elevated. Global longitudinal strain is abnormal at -12.9%. Stable calcified apical mural thrombus. Left ventricular chamber dimension is mildly enlarged. Left ventricular systolic function is moderately reduced, estimated at 40-45%. There is mildly increased left ventricular wall thickness. The left ventricular diastolic function is grade I diastolic dysfunction. Right Ventricle Linear artifact in right ventricle suggestive of catheter(s), pacemaker lead(s), or ICD lead(s). Right ventricular chamber dimension is normal. Right ventricular systolic function is normal. Left Atria Left atrial chamber dimension is normal. Right Atria Linear artifact in the right atrium suggestive of catheter(s), pacemaker lead(s), or ICD lead(s). Right atrial chamber dimension is normal. Aortic Valve The aortic valve is trileaflet. There is mild aortic valve sclerosis. There is no aortic valve stenosis. There is no aortic valve regurgitation. Pulmonic Valve The pulmonic valve is not well visualized. Mitral Valve The mitral valve has mildly thickened posterior mitral leaflet. There is no mitral valve stenosis. There is no mitral valve regurgitation. Tricuspid Valve RVSP is not calculated due to an inadequate TR jet. There is trace tricuspid valve regurgitation. Pericardium/Pleural There is no pericardial effusion. Inferior Vena Cava Normal inferior vena cava with >50% collapse upon inspiration consistent with normal right atrial pressure, 5 mmHg. Aorta The aortic root size at the sinus of Valsalva is not well visualized. Left Ventricular Outflow Tract Name Value Normal LVOT 2D
--- NOTE | 2020-05-21 00:26 | PC.NURSE ---
pt went 900ml in urinal bladder scan showed 423ml. inserted drake had 450ml out
[2020-05-21 00:42] LABS: Sodium 129 mmol/L (137-145)
[2020-05-21] MEDS: SODIUM CHLORIDE 0.9% IV 250 ML 30 ML IV CONT (02:52)
[2020-05-21] MEDS: SODIUM CHLORIDE 0.9% IV 1,000 ML 70 ML IV CONT (02:55)
[2020-05-21] MEDS: TUBING, BLOOD PLUM PUMP TUBING 1 EACH XX (03:03)
[2020-05-21 04:41] LABS: Basophils Percent Auto 0.3 % (0.2-1.2); Eosinophils Absolute Auto 0.1 K/mm3 (0-0.3); Eosinophils Percent Auto 0.7 % (0-4.4); Immature Granulocyte Absolute 0.07 K/mm3 (0.00-0.031); Immature Granulocyte Percent A 0.6 % (0-0.5); Lymphocytes Absolute Auto 0.84 K/mm3 (0.9-3.2); Lymphocytes Percent Auto 7.5 % (18.3-44.2); Mean Corpuscular HGB Conc 34.6 g/dl (32-36); Mean Corpuscular Hemoglobin 30.2 pg (26-34); Mean Corpuscular Volume 87.2 fl (80-100); Mean Platelet Volume 9.9 fl (7.4-10.4); Monocytes Absolute Auto 1.1 K/mm3 (0.1-0.6); Monocytes Percent Auto 9.4 % (2.6-8.5); Neutrophils Absolute Auto 9.1 K/mm3 (1.3-6.7); Neutrophils Percent Auto 81.5 % (45.5-73.1); Platelet Count Result 317 k/mm3 (150-375); Red Blood Count 2.98 M/mm3 (4.6-6.20); Red Cell Distribution Width 12.4 % (11.5-14.5); White Blood Count 11.2 K/mm3 (4.5-10.0)
[2020-05-21 04:53] LABS: INR 3.8; Prothrombin Time 37.6 Seconds (11.1-14.7)
[2020-05-21 05:09] LABS: Albumin Level 2.8 g/dL (3.5-5.1); Anion Gap 4 mmol/L (8-16); Blood Urea Nitrogen 12 mg/dL (9-20); Calcium 7.8 mg/dL (8.4-10.2); Carbon Dioxide 32 mmol/L (22-30); Chloride 94 mmol/L (98-107); Estimated CRCL calculation 91 ml/min; Estimated Glomerular Filt Rate > 60; Glucose 291 mg/dL (75-110); Phosphorus 3.1 mg/dL (2.5-4.5); Potassium 3.3 mmol/L (3.4-5.0); Sodium 130 mmol/L (137-145)
[2020-05-21 05:29] LABS: Hemoglobin A1C 12.9 % (<5.7)
[2020-05-21 07:55] LABS: Glucose Point of Care 288 (65-105)
--- NOTE | 2020-05-21 08:00 | PM.CNCAR ---
Assessment and Plan Assessment and plan (1) NICM (nonischemic cardiomyopathy): Code(s): I42.8 - Other cardiomyopathies Status: Acute (2) Presence of combination internal cardiac defibrillator (ICD) and pacemaker: Code(s): Z95.810 - Presence of automatic (implantable) cardiac defibrillator Status: Acute Assessment and Plan: Stable. (3) Systolic and diastolic CHF, chronic: Code(s): I50.42 - Chronic combined systolic (congestive) and diastolic (congestive) heart failure Status: Acute Assessment and Plan: Stable. Monitor fluid status as he will need diuretics prn. (4) Apical mural thrombus: Code(s): I51.3 - Intracardiac thrombosis, not elsewhere classified Status: Acute Assessment and Plan: Obtain echo already ordered. If no fresh thrombus, then will discontinue warfarin. He was on warfarin to decrease risk of recurrence of apical thrombus given cardiomyopathy and calcified thrombus present. Received FFP. (5) PAT (paroxysmal atrial tachycardia): Code(s): I47.1 - Supraventricular tachycardia Status: Acute Assessment and Plan: Stable with short run of PAT. On Coreg. (6) Diabetic ulcer of right foot associated with diabetes mellitus due to underlying condition: Qualifiers: Diabetic foot ulcer location: other Non-pressure ulcer stage: with necrosis of bone Qualified Code(s): E08.621 - Diabetes mellitus due to underlying condition with foot ulcer; 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 Code(s): E08.621 - Diabetes mellitus due to underlying condition with foot ulcer; L97.519 - Non-pressure chronic ulcer of other part of right foot with unspecified severity Status: Acute Assessment and Plan: General surgery and Orthopedic following. History of Present Illness History of Present Illness Consult date/time: 05/21/20 08:00 Reason for consult: Elevated troponin, anticoagulation. 69 yr old man who is my regular cardiology patient presents to hospital with 3 days of hiccups and right foot pain. He has a history of chronic systolic and diastolic heart failure, DM, apical thrombus, bradycardia with significant heart block S/P Medtronic BiV-ICD implanted at [facility] on 08/06/19. Reports his main complaint is hiccups that is constant for 3 days. He also noted right foot redness and pain last 2-3 days. Denies chest pain, sob, orthopnea, PND, edema, palpitations. EKG shows ventricular paced rhythm. Troponin was 0.145 then 0.132. CXR: Cardiomegaly. Sodium 122 went to 130. Potassium 3.3. WBC 16.3 went to 11.2. INR 9.7 went to 3.8. Received FFP. Telemetry shows short run of atrial tachycardia at 125 bpm. Had right foot debridement by general surgery yesterday. Cardiovascular studies: 11/05/19 EKG: Atrial sense- electronic ventricular pacemaker. 07/13/19 Echo: EF 20-25%, dilated LV, inferapical thrombus, diastolic dysfunction (E/e' 26), mod LAE, mild-mod TR. 07/16/19 Lexiscan myoview: Negative for ischemia. 08/06/19 [place] [employer]: Insertion of Medtronic BiV ICD. Reason For Visit: osteomyelitis 3rd metatarsal, hyponatremia and Review of Systems Review of Systems: All systems reviewed & are unremarkable except as noted in HPI and below Constitutional: Constitutional: Reports as per HPI, Denies chills and Denies fatigue Cardiovascular: Cardiovascular: Reports as per HPI, Denies chest pain, Denies leg edema, Denies lightheadedness and Denies dyspnea Respiratory: Respiratory: Reports as per HPI and Denies wheezing Gastrointestinal: Gastrointestinal: Reports as per HPI and Denies abdominal pain Genitourinary: Genitourinary: Reports as per HPI and Denies dysuria Musculoskeletal: Musculoskeletal: Reports as per HPI Neurologic: Reports as per HPI, Denies dizziness and Denies syncope [facility] Past Medical History Medical History (Updated 05/20/20 @ 17:59 by Fallon
--- NOTE | 2020-05-21 08:18 | PM.PNORT ---
Progress Note: A&P Assessment and Plan (1) Acute osteomyelitis of toe of right foot: Code(s): M86.171 - Other acute osteomyelitis, right ankle and foot Status: Acute Assessment and Plan: Reviewed with patient. Necrosis of the 3rd toe and osteomyelitis 3rd metatarsal. Patient desires amputation of the toe at this time. CT angiogram of the right lower extremity not officially read at this time but appears to have relatively intact blood flow. Discussed debridement of the right foot with amputation 3rd ray, possible amputation of 4th ray. The risks, benefits and alternatives of surgery were discussed in detail. Patient questions answered and he would like to proceed. Plan: Right foot debridement of diabetic ulcer, 3rd ray amputation, possible 4th ray amputation (2) Diabetic ulcer of right foot associated with diabetes mellitus due to underlying condition: Qualifiers: Diabetic foot ulcer location: other Non-pressure ulcer stage: with necrosis of bone Qualified Code(s): E08.621 - Diabetes mellitus due to underlying condition with foot ulcer; 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 Code(s): E08.621 - Diabetes mellitus due to underlying condition with foot ulcer; L97.519 - Non-pressure chronic ulcer of other part of right foot with unspecified severity Status: Acute Subjective Subjective Date/Time Seen: 05/21/20 08:18 Patient awake and alert. No new complaints of right foot. Complains of Hiccup overnight. Exam Const: General: healthy appearing; No in distress or confusion Orientation/consciousness: oriented to person, oriented to place, oriented to time and No confusion HENMT: Head: normal to inspection, normocephalic and atraumatic Eyes: Conjunctivae: conjunctivae normal Sclera: sclerae normal Neck: Neck: supple and nontender Resp: Effort & Inspection: normal respiratory effort and no audible wheezes Cardio: Rate: regular rate Rhythm: regular rhythm Skin: General skin exam: no rashes or lesions noted Neuro: General: oriented to person, oriented to place, oriented to time and No confusion Extrem: Right upper extremity: normal to inspection Left upper extremity: normal to inspection Right lower extremity: foot Details: vascular exam Details: abnormal capillary refill Location: of all toes; dorsalis pedis pulse absent and posterior tibial pulse absent, motor-sensory exam Details: two point discrimination abnormal Location: in all toes and light-touch abnormal Location: in all toes and other ( 7 mm ulceration plantar right forefoot 3rd metatarsal head. Probes to bone and joint, purulent drainage.) Left lower extremity: foot Details: vascular exam Details: abnormal capillary refill Location: of all toes; dorsalis pedis pulse absent and posterior tivial pulse absent and other ( Dry scaly skin toes and forefoot. No ulceration) Other: Necrosis of 3rd toe with ulceration over the proximal phalanx with exposed bone, partial necrosis of the tip of 4th toe Psych: Affect: normal affect Objective Data Vital Signs Vital Signs: Vital Signs - 24 hr 05/20/20 09:00 05/20/20 10:00 05/20/20 11:00 Temperature Pulse Rate 88 83 84 Respiratory Rate 16 16 16 Blood Pressure 156/75 H 138/66 138/73 Pulse Oximetry 100 99 99 05/20/20 12:00 05/20/20 13:00 05/20/20 14:00 Temperature Pulse Rate 84 81 83 Respiratory Rate 18 18 16 Blood Pressure 125/82 131/72 142/78 H Pulse Oximetry 97 100 100 05/20/20 15:35 05/20/20 16:00 05/20/20 18:00 Temperature 98.5 F Pulse Rate 80 80 87 Respiratory Rate 18 Blood Pressure 143/62 H Pulse Oximetry 99 05/20/20 18:31 05/20/20 20:00 05/20/20 20:48 Temperature 98.5 F 98.2 F Pulse Rate 87 84 84 Respiratory Rate 18 18 Blood Pressure 143/62 H 131/54 L Pulse Oximetry 99 100 05/20/20 22:00 05/21/20 00:00 05/21/20 02:00 Temperature 98.6 F Pulse Rate 77 75 75 Respiratory Rate
--- NOTE | 2020-05-21 08:23 | WPDHPUPDATE1 ---
History and Physical Update Update Date/Time: 05/21/20 08:23 History and Physical has been reviewed, including an updated exam of the patient. There are NO changes in the patient's condition. Risks, benefits, and alternatives have been discussed and questions answered. Patient agrees to proceed with procedure.
[2020-05-21] MEDS: carvediloL 6.25 MG TABLET PO ×2 (08:44→21:15)
--- NOTE | 2020-05-21 08:46 | PC.NURSE ---
To OR per hospital bed, IV dry, intact, and saline locked. Report given to DONNIE Holman.
--- NOTE | 2020-05-21 08:50 | SUR.PREOP ---
notified Dr. Gray of patients previous echo findings from june 2019 with EF of 20-25%. Echo ordered by hospitalist not yet completed. Pt also has implanted cardiac pacemaker
--- NOTE | 2020-05-21 09:52 | WPDANESEPPF ---
Anes - Initial Pre Proc Eval Procedure: Operation Date: 05/21/20 09:30 Proposed Procedures p Right Third Ray Amputation and Debridement(Right) - Ken Alva MD Date/Time: 05/21/20 09:52 Surgeon: Oscar Ruvalcaba MD Pre Op Diagnosis: osteomyelitis 3rd metatarsal, hyponatremia and Patient Data Age: 69 Gender: M Height: 5 ft 10 in Weight: 78.7 kg Last Vital Signs Temp 98.7 F 05/21/20 09:05 Pulse 76 05/21/20 09:05 Resp 18 05/21/20 09:05 BP 153/55 H 05/21/20 09:05 Pulse Ox 99 05/21/20 09:05 Allergies Allergy/AdvReac Type Severity Reaction Status Date / Time Penicillins Allergy Mild Unknown Verified 05/20/20 16:57 Home Medications Medication Instructions Recorded Confirmed Type aspirin 81 mg PO QAM #30 tablet 07/17/19 05/20/20 Rx furosemide 40 mg tablet 40 mg PO BID #60 tablet 01/28/20 05/20/20 Rx lisinopril 5 mg tablet 5 mg PO BID #60 tablet 01/28/20 05/20/20 Rx spironolactone 25 mg tablet 12.5 mg PO QAM #15 tablet 02/05/20 05/20/20 Rx warfarin 5 mg tablet 5 mg PO DAILY@1700 #30 tablet 02/07/20 05/20/20 Rx carvedilol 6.25 mg tablet 6.25 mg PO Q12H #60 tablet 02/15/20 05/20/20 Rx atorvastatin [Lipitor] 20 mg PO HS 05/20/20 05/20/20 History magnesium oxide 400 mg PO BID 05/20/20 05/20/20 History Laboratory Tests 05/20/20 05/20/20 05/20/20 09:12 09:13 09:13 WBC RBC Hgb Hct MCV MCH MCHC RDW Plt Count MPV Immature Gran % (Auto) Neut % (Auto) Lymph % (Auto) [place] % (Auto) Eos % (Auto) Baso % (Auto) Lymph # (Auto) [place] # (Auto) Eos # (Auto) Baso # (Auto) Abs Immat Gran (auto) Absolute Neuts (auto) Absolute Nucleated RBC Nucleated RBC % ESR PT 77.1 Seconds H Seconds (11.1-14.7) INR 9.7 H* APTT 82.0 SECONDS H SECONDS (22.3-36.8) Sodium 122 mmol/L L mmol/L (137-145) Potassium 4.4 mmol/L mmol/L (3.4-5.0) Chloride 86 mmol/L L mmol/L (98-107) Carbon Dioxide 27 mmol/L mmol/L (22-30) Anion Gap 9 mmol/L mmol/L (8-16) BUN 14 mg/dL D mg/dL (9-20) Creatinine 0.70 mg/dL mg/dL (0.7-1.3) Estim Creat Clear Calc 91 ml/min ml/min Estimated GFR > 60 (59 - ) Glucose 334 mg/dL H mg/dL (75-110) POC Capillary Glucose Hemoglobin A1c Lactic Acid Calcium 8.3 mg/dL L mg/dL (8.4-10.2) Phosphorus 3.0 mg/dL mg/dL (2.5-4.5) Magnesium 1.9 mg/dL mg/dL (1.6-2.3) Total Bilirubin 1.0 mg/dL mg/dL (0.2-1.3) AST 56 U/L U/L (17-59) ALT 34 U/L U/L (4-50) Alkaline Phosphatase 173 U/L H U/L (38-126) Troponin I C-Reactive Protein Total Protein 7.0 g/dL g/dL (6.3-8.2) Albumin 3.7 g/dL g/dL (3.5-5.1) Beta-Hydroxybutyrate/Acetoacetate 1.43 mmol/L H mmol/L (0.02-0.27) Urine Color Urine Appearance Urine pH Ur Specific [place] Urine Protein Urine Glucose (UA) Urine Ketones Ur Blood (Man) Urine Nitrate Urine Bilirubin Urine Urobilinogen Leukocyte Esterase Rfl Urine RBC Urine WBC Urine Osmolality Ur Random Sodium Blood Type 05/20/20 05/20/20 05/20/20 09:48 09:48 09:48 WBC RBC Hgb Hct MCV MCH MCHC RDW Plt Count MPV Immature Gran % (Auto) Neut % (Auto)
[2020-05-21] MEDS: LACTATED RINGERS 1,000 ML 30 ML IV CONT (10:11)
[2020-05-21] MEDS: BUPIVACAINE HCL 0.5% PF 30 ML VIAL INFILTRATE (10:32)
[2020-05-21 11:04] LABS: Glucose Point of Care 268 (65-105)
--- NOTE | 2020-05-21 11:22 | PM.PROC ---
Procedure Note - Detailed Date of procedure: 05/21/20 Pre-op diagnosis: osteomyelitis 3rd metatarsal, hyponatremia and Post-op diagnosis: same Procedure performed: Excisional debridement of right diabetic foot infection, 3rd ray amputation. Description of procedure: Indications: Patient is a 69-year-old gentleman with diabetes and peripheral neuropathy who developed a right diabetic foot ulcer, now with abscess and gangrene of the 3rd toe. Presents for operative treatment. What was done: Patient identified in the preoperative holding. Informed consent given. Operative extremity marked. Patient received intravenous antibiotics. Patient brought to the operating room where underwent IV sedation by anesthesia team. Positioned supine on operating room table. Time-out performed confirming the patient, site of the surgery and the plan. Right foot prepped draped usual sterile surgical fashion using a Betadine prep solution. diabetic ulcer addressed 1st on the plantar aspect. Fifteen blade knife used to sharply excise skin, subcutaneous tissue and muscle. Gross purulence noted in the 3rd intermetatarsal space. [place]ur used to excise large fragments and passed off. Thorough irrigation with antibiotic solution. Partial closer with 0 Prolene interrupted suture. Dorsal incision made over the 3rd metatarsal 15 blade knife. Hemostasis controlled electrocautery. Dissection carried down to the metatarsal and retractors placed. Bone cutter used to transect the metatarsal in the midportion. The ray then reflected out distally and removed as 1 unit and passed off as specimen. The elliptical incision at the base of the 3rd toe was connected with the plantar aspect. Any nonviable or infected material sharply removed. Wound thoroughly irrigated antibiotic solution. Skin incision closed with 0 Prolene interrupted suture. Wound packed with Betadine gauze. Sterile dressing applied. The patient was then woken from anesthesia, extubated and taken to the recovery room in stable condition. All sponge, needle, instrument counts were correct at the end of the case. Anesthesia: MAC and local Surgeon: Ken Alva MD It Desktop Support Specialist: assistant center manager Estimated blood loss (mL): 20 Tourniquet time (min): 0 Drains: No Packing: No Pathology: none sent Complications: None Condition: stable Disposition: PACU Findings: right diabetic foot ulcer extending to abscess in the 3rd intermetatarsal space and dorsum of the foot. Complete necrosis of the 3rd toe. Partial necrosis of the skin of the distal 4th toe.
--- NOTE | 2020-05-21 12:05 | PC.NURSE ---
Returned from OR per hospital bed. Report received from DONNIE Pandya.
[2020-05-21 12:07] LABS: Glucose Point of Care 294 (65-105)
[2020-05-21] MEDS: INSULIN DETEMIR 100 UNITS/ML SUB-Q ×2 (12:26→21:14)
[2020-05-21] MEDS: EUCERIN CREAM 120 GM JAR 1 APPLIC TOPICAL (12:27)
[2020-05-21] MEDS: lisinopriL 5 MG TABLET PO ×2 (12:27→21:15)
[2020-05-21] MEDS: MAGNESIUM OXIDE 400 MG TABLET PO ×2 (12:27→16:36)
[2020-05-21] MEDS: INSULIN ASPART (*BKC) 100 UNITS/ML SUB-Q ×2 (12:28→16:35)
--- NOTE | 2020-05-21 12:43 | PM.IMPN ---
Progress Note: A&P Assessment and Plan (1) Acute osteomyelitis of toe of right foot: Code(s): M86.171 - Other acute osteomyelitis, right ankle and foot Status: Acute Assessment and Plan: Patient most likely has had soft tissue damage for a while that has ultimately resulted in osteomyelitis and gangrene. Patient admitted on 05/20/2020 and underwent debridement of the right 3rd toe later that day. 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 CTA BLE showing ulceration with exposure of right 3rd metatarsal head, osteomyelitis and scattered foci of gas along this digit and between 3rd and 4th metatarsal bones; can't exclude fasciitis. Right inguinal lymphadenopathy, could be reactive but malignancy not excludable (but felt malignancy unlikely). No sensation to the right great toe but this may be more chronic. BCx growing gram-negative bacilli. Most likely related to the foot infection. Continue vancomycin and Primaxin. Appreciate Orthopedic and general surgery input. (2) Supratherapeutic INR: Code(s): R79.1 - Abnormal coagulation profile Status: Acute Assessment and Plan: Patient on Coumadin due to apical thrombus. Echocardiogram from June showing a small calcified mass which could be a calcified chronic thrombus. INR 9.7. Elevated INR related to continued Coumadin use, infectious process and poor oral intake. No evidence of bleeding. Hemoglobin 11. Patient was transfused with FFP and given vitamin K on the day of admission. INR better today at 3.8. Echo showing stable calcified apical mural thrombus but nothing acute. Continue to monitor. No plans at this time to resume Coumadin (3) Elevated troponin: Code(s): R77.8 - Other specified abnormalities of plasma proteins Status: Acute Assessment and Plan: Patient had elevated troponins on admission to 0.145. No complaints of chest pain. EKG showing atrial sensed paced rhythm. No hypoxia or tachycardia to suggest PE plus patient is anticoagulated. Probably a type 2 [place] related to infectious process. Echo showing EF 40-45% and Grade I diastolic dysfunction. Appreciate Cardiology input (4) Acute hyponatremia: Code(s): E87.1 - Hypo-osmolality and hyponatremia Status: Acute Assessment and Plan: Sodium 122. Urine sodium less than 5 to suggest dehydration. Patient admits he has not been eating the past few days and has continued his Lasix and spironolactone. We held his diuretics and started IV fluids. Na 130 today. IV fluids stopped. Will follow. (5) Systolic and diastolic CHF, chronic: Code(s): I50.42 - Chronic combined systolic (congestive) and diastolic (congestive) heart failure Status: Acute Assessment and Plan: In June of 2019 showing EF of 20-25%, diastolic dysfunction, and [id number] mitral regurgitation. Patient clinically appears euvolemic and probably dehydrated. Repeat Echo showing EF 40-45% and Grade I diastolic dysfunction. Continue Coreg. Cardiology following. (6) Diabetic ulcer of right foot associated with diabetes mellitus due to underlying condition: Qualifiers: Diabetic foot ulcer location: other Non-pressure ulcer stage: with necrosis of bone Qualified Code(s): E08.621 - Diabetes mellitus due to underlying condition with foot ulcer; 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 Code(s): E08.621 - Diabetes mellitus due to underlying condition with foot ulcer; L97.519 - Non-pressure chronic ulcer of other part of right foot with unspecified severity Status: Acute Assessment and Plan: Patient has developed diabetic ulcer related to his increased walking and possibly poor footwear. Suspect his neuropathy contributed to this as well. This infection probably has been more longstanding then he thinks given the fact t
--- NOTE | 2020-05-21 16:00 | PM.PNGS ---
Progress Note: A&P Assessment and Plan (1) Acute osteomyelitis of toe of right foot: Code(s): M86.171 - Other acute osteomyelitis, right ankle and foot Status: Acute Assessment and Plan: Patient now s/p debridement and 3rd ray amputation. Appreciate Ortho's help. We will sign off the case at this point and allow Ortho to manage post-op care. Please let us know if anything is needed in the future. (2) Diabetic ulcer of right foot associated with diabetes mellitus due to underlying condition: Qualifiers: Diabetic foot ulcer location: other Non-pressure ulcer stage: with necrosis of bone Qualified Code(s): E08.621 - Diabetes mellitus due to underlying condition with foot ulcer; 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 Code(s): E08.621 - Diabetes mellitus due to underlying condition with foot ulcer; L97.519 - Non-pressure chronic ulcer of other part of right foot with unspecified severity Status: Acute Additional Plan Discussed the plan of care with Dr. Ewing. Subjective Subjective Date/Time Seen: 05/21/20 16:00 Patient reports: no new complaints Interval history: Patient seen post op excisional debridement of right diabetic foot ulcer and 3rd ray amputation. No complaints at this time. Exam Const: General: comfortable and alert; No in distress Orientation/consciousness: patient oriented x3 Skin: Other: Right foot covered with post-op dressing, dry and intact Psych: Insight: Good insight present (Psych) Judgement: Good judgement present (Psych) Objective Data Vital Signs Vital Signs: Vital Signs - 24 hr 05/20/20 18:00 05/20/20 18:31 05/20/20 20:00 Temperature 98.5 F 98.2 F Pulse Rate 87 87 84 Respiratory Rate 18 18 Blood Pressure 143/62 H 131/54 L Pulse Oximetry 99 100 05/20/20 20:48 05/20/20 22:00 05/21/20 00:00 Temperature 98.6 F Pulse Rate 84 77 75 Respiratory Rate 20 Blood Pressure 137/57 L Pulse Oximetry 99 05/21/20 02:00 05/21/20 02:57 05/21/20 03:16 Temperature 98.1 F 98.5 F Pulse Rate 75 73 74 Respiratory Rate 18 18 Blood Pressure 125/56 L 135/51 L Pulse Oximetry 99 99 05/21/20 03:22 05/21/20 04:00 05/21/20 06:00 Temperature 98.5 F Pulse Rate 74 87 71 Respiratory Rate 18 Blood Pressure 135/51 L Pulse Oximetry 99 05/21/20 07:56 05/21/20 08:00 05/21/20 08:44 Temperature 98.4 F Pulse Rate 74 79 78 Respiratory Rate 18 Blood Pressure 143/67 H Pulse Oximetry 99 05/21/20 09:05 05/21/20 11:00 05/21/20 11:15 Temperature 98.7 F 97.1 F L Pulse Rate 76 71 69 Respiratory Rate 18 12 20 Blood Pressure 153/55 H 115/50 L 117/45 L Pulse Oximetry 99 99 98 05/21/20 11:30 05/21/20 11:45 05/21/20 12:00 Temperature Pulse Rate 69 70 70 Respiratory Rate 13 13 Blood Pressure 109/36 L 103/32 L Pulse Oximetry 98 97 05/21/20 12:06 Temperature 98.4 F Pulse Rate 71 Respiratory Rate 18 Blood Pressure 146/64 H Pulse Oximetry 99 Intake/Output Intake/Output: Intake & Output 05/18/20 05/19/20 05/20/20 05/21/20 23:59 23:59 23:59 23:59 Intake Total 2290 2652 Output Total 1375 2250 Balance 915 402 Meds/Results Medications: Active Medications Generic Name Dose Route Start Last Admin Trade Name Freq PRN Reason Stop Dose Admin Al Hydrox/Mg Hydrox/Simethicone 30 ml 05/21/20 08:26 Mag Hydrox/Al Hydrox/Simeth 30 Ml Udc PO Q6H PRN Indigestion Aspirin 81 mg 05/22/20 09:00 Aspirin 81 Mg Enteric Tablet PO QAM CRISTI Atorvastatin Calcium 20 mg 05/20/20 21:00 05/20/20 20:48 Atorvastatin 20 Mg Tablet PO 20 mg HS CRISTI Administration Carvedilol 6.25 mg 05/20/20 21:00 05/21/20 08:44 Carvedilol 6.25 Mg Tablet PO 6.25 mg Q12H CRISTI Administration Dextrose 12.5 gm 05/20/20 19:04 Dextrose 50% 25 Gm/50 Ml Syringe IV PUSH PRN PRN Hypoglycemia Protocol Diazepam 5 mg 05/21/20 08:25 Villanueva
[2020-05-21] MEDS: diazePAM (*CRX) 5 MG TABLET PO (16:34)
[2020-05-21] MEDS: POTASSIUM CHLORIDE 20 MEQ TABLET PO (16:34)
[2020-05-21 16:35] LABS: Glucose Point of Care 264 (65-105)
[2020-05-21 20:51] LABS: Glucose Point of Care 234 (65-105)
[2020-05-21] MEDS: ATORVASTATIN 20 MG TABLET PO (21:15)
[2020-05-21] MEDS: ACETAMINOPHEN 325 MG TABLET 650 MG PO (21:18)
[2020-05-22] VITALS (19 sets, daily range): BP systolic 113–138; BP diastolic 45–68; PULSE 65–79; RESP 12–18; TEMP 36.7–37.3; O2SAT 97–100
[2020-05-22 02:27] LABS: Basophils Percent Auto 0.2 % (0.2-1.2); Eosinophils Absolute Auto 0.2 K/mm3 (0-0.3); Eosinophils Percent Auto 1.1 % (0-4.4); Hematocrit 26.8 % (42.0-52.0); Immature Granulocyte Percent A 0.6 % (0-0.5); Lymphocytes Absolute Auto 1.25 K/mm3 (0.9-3.2); Lymphocytes Percent Auto 7.4 % (18.3-44.2); Mean Corpuscular HGB Conc 33.6 g/dl (32-36); Mean Corpuscular Hemoglobin 29.2 pg (26-34); Mean Platelet Volume 9.9 fl (7.4-10.4); Monocytes Absolute Auto 1.3 K/mm3 (0.1-0.6); Monocytes Percent Auto 7.9 % (2.6-8.5); Neutrophils Percent Auto 82.8 % (45.5-73.1); Platelet Count Result 362 k/mm3 (150-375); Red Blood Count 3.08 M/mm3 (4.6-6.20); Red Cell Distribution Width 12.5 % (11.5-14.5); White Blood Count 16.9 K/mm3 (4.5-10.0)
[2020-05-22 03:19] LABS: Vancomycin Trough 9.6 ug/mL (10.0-20.0)
[2020-05-22 03:29] LABS: INR 1.3
[2020-05-22 03:38] LABS: Albumin Level 2.8 g/dL (3.5-5.1); Anion Gap 3 mmol/L (8-16); Blood Urea Nitrogen 9 mg/dL (9-20); Calcium 8.1 mg/dL (8.4-10.2); Carbon Dioxide 34 mmol/L (22-30); Chloride 97 mmol/L (98-107); Estimated CRCL calculation 91 ml/min; Estimated Glomerular Filt Rate > 60; Glucose 200 mg/dL (75-110); Magnesium 2.1 mg/dL (1.6-2.3); Phosphorus 3.1 mg/dL (2.5-4.5); Potassium 3.1 mmol/L (3.4-5.0); Sodium 134 mmol/L (137-145)
[2020-05-22 03:46] LABS: Osmolality, Urine 181 mOsm/kg (50-1200)
[2020-05-22] MEDS: POTASSIUM CHLORIDE 20 MEQ TABLET 40 MEQ PO (06:46)
[2020-05-22 08:16] LABS: Glucose Point of Care 231 (65-105)
[2020-05-22] MEDS: INSULIN ASPART (*BKC) 100 UNITS/ML SUB-Q ×3 (08:21→17:08)
[2020-05-22] MEDS: INSULIN DETEMIR 100 UNITS/ML SUB-Q (08:21)
[2020-05-22] MEDS: SOD HYPOCHLORITE 1/4 STRENGTH 473 ML 1 APPLIC TOPICAL ×2 (08:22→20:37)
[2020-05-22] MEDS: carvediloL 6.25 MG TABLET PO ×2 (08:22→20:37)
[2020-05-22] MEDS: ASPIRIN 81 MG ENTERIC TABLET PO (08:22)
[2020-05-22] MEDS: MAGNESIUM OXIDE 400 MG TABLET PO ×2 (08:22→17:08)
[2020-05-22] MEDS: lisinopriL 5 MG TABLET PO ×2 (08:22→20:37)
[2020-05-22] MEDS: EUCERIN CREAM 120 GM JAR 1 APPLIC TOPICAL (08:23)
--- NOTE | 2020-05-22 09:11 | PM.PNCARD ---
Progress Note: A&P Assessment and Plan (1) NICM (nonischemic cardiomyopathy): Code(s): I42.8 - Other cardiomyopathies Status: Acute Assessment and Plan: EF improved to 40-45% with diastolic dysfunction. (2) Presence of combination internal cardiac defibrillator (ICD) and pacemaker: Code(s): Z95.810 - Presence of automatic (implantable) cardiac defibrillator Status: Acute Assessment and Plan: [employer] interrogation to check parameters and see if hiccups due to movement of pacemaker leads. (3) Systolic and diastolic CHF, chronic: Code(s): I50.42 - Chronic combined systolic (congestive) and diastolic (congestive) heart failure Status: Acute Assessment and Plan: Stable. Monitor fluid status as he will need diuretics prn. (4) Apical mural thrombus: Code(s): I51.3 - Intracardiac thrombosis, not elsewhere classified Status: Acute Assessment and Plan: Echo shows no new apical thrombus, only stable caclified apical thrombus. Discontinue warfarin. He was on warfarin to decrease risk of recurrence of apical thrombus given cardiomyopathy and calcified thrombus present. Received FFP and Vit K for high INR at 9 on admission. (5) PAT (paroxysmal atrial tachycardia): Code(s): I47.1 - Supraventricular tachycardia Status: Acute Assessment and Plan: Stable with short run of PAT. On Coreg. (6) Diabetic ulcer of right foot associated with diabetes mellitus due to underlying condition: Qualifiers: Diabetic foot ulcer location: other Non-pressure ulcer stage: with necrosis of bone Qualified Code(s): E08.621 - Diabetes mellitus due to underlying condition with foot ulcer; 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 Code(s): E08.621 - Diabetes mellitus due to underlying condition with foot ulcer; L97.519 - Non-pressure chronic ulcer of other part of right foot with unspecified severity Status: Acute Assessment and Plan: General surgery and Orthopedic following. (7) Elevated troponin: Code(s): R77.8 - Other specified abnormalities of plasma proteins Status: Acute Assessment and Plan: Flat and moderately elevated due to type II infarct from infection likely. Echo shows improvement of EF. No further workup for this. Subjective Date/time seen: 05/22/20 09:11 Patient had partial amputation of right foot for gangrene/abscess/osteomyelitis. Still has hiccups. No chest pain or sob. Exam Const: General: cooperative, healthy appearing and comfortable Other: Having hiccups Resp: Auscultation: clear to auscultation bilaterally, no crackles, no rales, no rhonchi and no wheezes Cardio: Jugular venous distension: no JVD Rate: regular rate Rhythm: regular rhythm Heart sounds: no murmurs Peripheral pulses: posterior tibial pulses not present and dorsalis pedis pulses not present GI: GI Palp: No abdominal tenderness and Yes Soft to palpation Neuro: General: oriented to person, oriented to place and oriented to time Extrem: Right lower extremity: no edema Left lower extremity: no edema Other: Right foot bandaged. Left foot is very dry. Objective Data Vital Signs Vital Signs: Vital Signs - 24 hr 05/21/20 11:00 05/21/20 11:15 05/21/20 11:30 Temperature 97.1 F L Pulse Rate 71 69 69 Respiratory Rate 12 20 13 Blood Pressure 115/50 L 117/45 L 109/36 L Pulse Oximetry 99 98 98 05/21/20 11:45 05/21/20 12:00 05/21/20 12:06 Temperature 98.4 F Pulse Rate 70 70 71 Respiratory Rate 13 18 Blood Pressure 103/32 L 146/64 H Pulse Oximetry 97 99 05/21/20 14:00 05/21/20 16:00 05/21/20 16:41 Temperature 99.5 F Pulse Rate 82 80 88 Respiratory Rate 18 Blood Pressure 143/89 H Pulse Oximetry 100 05/21/20 18:00 05/21/20 20:00 05/21/20 20:04 Temperature 100.3 F H Pulse Rate 82 81 79 Respiratory Rate 18 Blood Pressure 138/52 L Pulse Oximetr
--- NOTE | 2020-05-22 09:23 | WPDANESPN ---
Anes - Prog Note Post-Op Date/Time: 05/22/20 09:23 Cardiovascular status: normal Respiratory status: normal Airway patency: baseline Mental status: baseline Vital Signs: Last Vital Signs Temp 37.1 C 05/22/20 08:25 Pulse 78 05/22/20 08:25 Resp 12 05/22/20 08:25 BP 138/68 05/22/20 08:25 Pulse Ox 100 05/22/20 08:25 Pain Score (VAS): 04/27 I/O: Intake & Output 05/21/20 05/22/20 05/22/20 23:59 07:59 15:59 Intake Total 710 750 240 Output Total 350 2000 Balance 360 -1250 240 Laboratory Tests 05/22/20 02:09 05/22/20 02:10 05/20/20 05/21/20 05/21/20 14:20 11:03 12:04 WBC RBC Hgb Hct MCV MCH MCHC RDW Plt Count MPV Immature Gran % (Auto) Neut % (Auto) Lymph % (Auto) [place] % (Auto) Eos % (Auto) Baso % (Auto) Lymph # (Auto) [place] # (Auto) Eos # (Auto) Baso # (Auto) Abs Immat Gran (auto) Absolute Neuts (auto) Absolute Nucleated RBC Nucleated RBC % PT INR Sodium Potassium Chloride Carbon Dioxide Anion Gap BUN Creatinine Estim Creat Clear Calc Estimated GFR Glucose POC Capillary Glucose 268 H 294 H Calcium Phosphorus Magnesium Albumin Urine Osmolality 181 Vancomycin Trough 05/21/20 05/21/20 05/22/20 16:15 20:49 02:09 WBC RBC Hgb Hct MCV MCH MCHC RDW Plt Count MPV Immature Gran % (Auto) Neut % (Auto) Lymph % (Auto) [place] % (Auto) Eos % (Auto) Baso % (Auto) Lymph # (Auto) [place] # (Auto) Eos # (Auto) Baso # (Auto) Abs Immat Gran (auto) Absolute Neuts (auto) Absolute Nucleated RBC Nucleated RBC % PT INR Sodium Potassium Chloride Carbon Dioxide Anion Gap BUN Creatinine Estim Creat Clear Calc Estimated GFR Glucose POC Capillary Glucose 264 H 234 H Calcium Phosphorus Magnesium Albumin Urine Osmolality Vancomycin Trough 9.6 L 05/22/20 05/22/20 05/22/20 02:09 02:10 02:10 WBC 16.9 H RBC 3.08 L Hgb 9.0 L Hct 26.8 L MCV 87.0 MCH 29.2 MCHC 33.6 RDW 12.5 Plt Count 362 MPV 9.9 Immature Gran % (Auto) 0.6 H Neut % (Auto) 82.8 H Lymph % (Auto) 7.4 L [place] % (Auto) 7.9 Eos % (Auto) 1.1 Baso % (Auto) 0.2 Lymph # (Auto) 1.25 [place] # (Auto) 1.3 H Eos # (Auto) 0.2 Baso # (Auto) 0.0 Abs Immat Gran (auto) 0.10 H Absolute Neuts (auto) 14.0 H Absolute Nucleated RBC 0.0 Nucleated RBC % 0.0 PT 17.0 H D INR 1.3 Sodium 134 L Potassium 3.1 L Chloride 97 L Carbon Dioxide 34 H Anion Gap 3 L BUN 9 Creatinine 0.70 Estim Creat Clear Calc 91 Estimated GFR > 60 Glucose 200 H POC Capillary Glucose Calcium 8.1 L Phosphorus 3.1 Magnesium 2.1 Albumin 2.8 L Urine Osmolality Vancomycin Trough 05/22/20 08:06 WBC RBC Hgb Hct MCV MCH MCHC RDW Plt Count MPV Immature Gran % (Auto) Neut % (Auto) Lymph % (Auto) [place] % (Auto) Eos % (Auto) Baso % (Auto) Lymph # (Auto) [place] # (Auto) Eos # (Auto) Baso # (Auto) Abs Immat Gran (auto) Absolute Neuts (auto) Absolute Nucleated RBC Nucleated RBC % PT INR Sodium Potassium Chloride Carbon Dioxide Anion Gap BUN Creatinine Estim Creat Clear Calc Estimated GFR Glucose POC Capillary Glucose 231 H Calcium Phosphorus Magnesium Albumin Urine Osmolality Vancomycin Trough Microbiology 05/20/20 18:34 Foot Right Anaerobic Culture - Preliminary 05/20/20 18:34 Foot Right Aerobic Culture - Preliminary 05/20/20 09:13 Blood Blood Culture - Preliminary 05/20/20 09:47 Blood Blood Culture - Preliminary Post-procedural complaints: none Patient Feedback: Patient satisfied with anesthetic care.
--- NOTE | 2020-05-22 09:28 | PM.PNORT ---
Progress Note: A&P Assessment and Plan (1) Acute osteomyelitis of toe of right foot: Code(s): M86.171 - Other acute osteomyelitis, right ankle and foot Status: Acute Assessment and Plan: POD #1: Excisional debridement of right diabetic foot infection, 3rd ray amputation. Dressing changed. Concern for viability of the 4th ray at this time. Patient understands potential need for further surgical intervention. Will allow 4th ray to declare itself. Continue daily dressing changes with Dakin's soaked gauze to wound bed, cover incisions with adaptic and cover dry. Continue to elevate RLE on pillows. Continue IV antibiotics per medicine team. ID consult, appreciate recommendations. Potential return to OR for definitive surgical intervention pending viability of 4th ray and wound bed appearance. Will continue to follow. (2) Diabetic neuropathy associated with diabetes mellitus due to underlying condition: Qualifiers: Diabetes mellitus complication detail: diabetic polyneuropathy Qualified Code(s): E08.42 - Diabetes mellitus due to underlying condition with diabetic polyneuropathy Code(s): E08.40 - Diabetes mellitus due to underlying condition with diabetic neuropathy, unspecified Status: Acute Assessment and Plan: Per patient report, he does not have a physician managing his diabetes as an outpatient due to not agreeing with medication management with his previous physician. HgB A1c 12.9%. Concern for outpatient follow up and complications for wound healing if no proper following by PCP or endocrinology. Appreciate care coordination assistance in ensuring appropriate follow up upon discharge. (3) Diabetic ulcer of right foot associated with diabetes mellitus due to underlying condition: Qualifiers: Diabetic foot ulcer location: other Non-pressure ulcer stage: with necrosis of bone Qualified Code(s): E08.621 - Diabetes mellitus due to underlying condition with foot ulcer; 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 Code(s): E08.621 - Diabetes mellitus due to underlying condition with foot ulcer; L97.519 - Non-pressure chronic ulcer of other part of right foot with unspecified severity Status: Acute Subjective Subjective Date/Time Seen: 05/22/20 09:28 POD #1: Excisional debridement of right diabetic foot infection, 3rd ray amputation. No new complaints. Feeling well. Review of Systems Review of Systems: All systems reviewed & are unremarkable except as noted in HPI and below Constitutional: Constitutional: Reports no additional constitutional complaints, Denies chills and Denies weakness Cardiovascular: Cardiovascular: Denies chest pain Respiratory: Respiratory: Denies dyspnea Gastrointestinal: Gastrointestinal: Denies abdominal pain, Denies nausea and Denies vomiting Genitourinary: Genitourinary: Reports no additional male genitourinary complaints Musculoskeletal: Musculoskeletal: Reports as per HPI Exam Const: General: comfortable and no acute distress Resp: Effort & Inspection: normal respiratory effort Cardio: Rate: regular rate Rhythm: regular rhythm GI: Inspection: non-distended GI Palp: Yes Soft to palpation and No Tenderness to palpation present (GI) Skin: Wounds: wounds noted (Large wound right foot ) Neuro: Cognition (Neuro): normal cognition Extrem: Right lower extremity: foot (see below ) Details: motor-sensory exam Details: two point discrimination abnormal and light-touch abnormal; abnormal capillary refill, abnormal to inspection and no tenderness Other: Unable to palpate pedal pulses. Incision on the dorsal and plantar aspect of the site of the right third ray well-approximated. Moderate amount of serosanguineous drainage noted. Large void, open wound with gauze packing in place. Gauze removed. Dressing changed. Sterile normal saline dampened gauze packed into the wound bed. 4th ray d
--- NOTE | 2020-05-22 10:00 | PM.IMPN ---
Progress Note: A&P Assessment and Plan (1) Acute osteomyelitis of toe of right foot: Code(s): M86.171 - Other acute osteomyelitis, right ankle and foot Status: Acute Assessment and Plan: Patient most likely has had soft tissue damage for a while that has ultimately resulted in osteomyelitis and gangrene. Patient admitted on 05/20/2020 and underwent debridement of the right 3rd toe later that day. CTA BLE showing ulceration with exposure of right 3rd metatarsal head, osteomyelitis and scattered foci of gas along this digit and between 3rd and 4th metatarsal bones; can't exclude fasciitis. Right inguinal lymphadenopathy, could be reactive but malignancy not excludable (but felt malignancy unlikely). 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 No sensation to the right great toe but this may be more chronic. Now with bacteremia with BCx growing Proteus vulgaris (1of2 bottles). WCx pending. Most likely related to the foot infection. WBC worse with fever overnight but could be related to transient bactermiea from the procedure. Continue vancomycin and Primaxin. Appreciate Orthopedic and general surgery input. ID consult. Follow WBC and fever curve. (2) Supratherapeutic INR: Code(s): R79.1 - Abnormal coagulation profile Status: Acute Assessment and Plan: Patient on Coumadin due to apical thrombus. Echocardiogram from June showing a small calcified mass which could be a calcified chronic thrombus. INR 9.7. Elevated INR related to continued Coumadin use, infectious process and poor oral intake. No evidence of bleeding. Hemoglobin 11. Patient was transfused with FFP and given vitamin K on the day of admission. INR better today at 1.3. Echo showing stable calcified apical mural thrombus but nothing acute. Continue to monitor. No plans at this time to resume Coumadin. Add Lovenox for DVT prophylaxis. Stop daily INR (3) Elevated troponin: Code(s): R77.8 - Other specified abnormalities of plasma proteins Status: Acute Assessment and Plan: Patient had elevated troponins on admission to 0.145. No complaints of chest pain. EKG showing atrial sensed paced rhythm. No hypoxia or tachycardia to suggest PE plus patient is anticoagulated. Echo showing EF 40-45% and Grade I diastolic dysfunction. Probably a type 2 [place] related to infectious process. Appreciate Cardiology input (4) Acute hyponatremia: Code(s): E87.1 - Hypo-osmolality and hyponatremia Status: Acute Assessment and Plan: Sodium 122. Urine sodium less than 5 to suggest dehydration. Patient admits he has not been eating the past few days and has continued his Lasix and spironolactone. We held his diuretics and started IV fluids. Na climbed to 130 so IV fluids stopped on 05/21/20. Na stable at 134. Will follow. (5) Systolic and diastolic CHF, chronic: Code(s): I50.42 - Chronic combined systolic (congestive) and diastolic (congestive) heart failure Status: Acute Assessment and Plan: In June of 2019 showing EF of 20-25%, diastolic dysfunction, and [id number] mitral regurgitation. Patient clinically appears euvolemic and probably dehydrated. Repeat Echo showing EF 40-45% and Grade I diastolic dysfunction. Continue Coreg and lisinopril. Cardiology following. (6) Diabetic ulcer of right foot associated with diabetes mellitus due to underlying condition: Qualifiers: Diabetic foot ulcer location: other Non-pressure ulcer stage: with necrosis of bone Qualified Code(s): E08.621 - Diabetes mellitus due to underlying condition with foot ulcer; 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 Code(s): E08.621 - Diabetes mellitus due to underlying condition with foot ulcer; L97.519 - Non-pressure chronic ulcer of other part of right foot with unspecified s
[2020-05-22] MEDS: ENOXAPARIN 40 MG/0.4 ML SYRINGE SUB-Q (11:17)
[2020-05-22] MEDS: chlorproMAZINE HCL 25 MG TABLET PO (11:17)
--- NOTE | 2020-05-22 11:27 | PCNFU ---
Nutrition Follow-Up Complete: Altered nutrition related labs related to diabetes mellitus as evidenced by HgbA1C of 12.9%. Goal: Patient to consume 75% of meals on diabetic, low sodium diet. Patient is working towards goal. Freddie will be sent twice a day providing an additional 90 calories and 2.5 grams of protein and Glucerna will be sent BID providing an additional 220 calories and 10 grams of protein. Pt current nutrition is diabetic consistent carb diet. Last recorded weight is 77.8. Down from 78.5 kg. Bowel Motility: + BM 05/20 Labs Reviewed: Hgb 9.0, Hct 26.0, Alb 2.8, Na 130, K 3.3, Glu 291, Ca 7.8, A1C 12.9, WBC 11.2 Meds Noted: Lipitor, Coreg, Novolog, Lovenox, Levemir, Imipenem, Magnesium Oxide, Potassium Chloride Additional Notes: Spoke with patient. Patient reports not eating much due to not liking the food here. Feels he would eat well if he had food that tasted good to him. Both Glucerna shakes with be sent up BID and Freddie shakes will be sent up twice a day to try and get the patient the nutrients he needs to heal. Educated the patient on carbohydrate counting and the importance of taking his medications. Follow up in 5 days.
--- NOTE | 2020-05-22 11:52 | PCNSR ---
On 05/22/20, the student, Juliet Leon, provided care and completed [facility] documentation on this patient. I have reviewed the student's documentation and agree with the findings.
[2020-05-22 12:38] LABS: Glucose Point of Care 241 (65-105)
--- NOTE | 2020-05-22 15:31 | WPDINFPN2 ---
Progress Note: A&P Assessment and Plan (1) Acute osteomyelitis of toe of right foot: Code(s): M86.171 - Other acute osteomyelitis, right ankle and foot Status: Acute Assessment and Plan: Acute OM of R foot with resulting bacteremia and infection. Poorly controlled DM REC Imipenem through 07/01 Subjective Date/time seen: 05/22/20 15:31 Objective Data Vital Signs Vital Signs: Vital Signs - 24 hr 05/21/20 16:00 05/21/20 16:41 05/21/20 18:00 Temperature 37.5 C Pulse Rate 80 88 82 Respiratory Rate 18 Blood Pressure 143/89 H Pulse Oximetry 100 05/21/20 20:00 05/21/20 20:04 05/21/20 21:15 Temperature 37.9 C H Pulse Rate 81 79 81 Respiratory Rate 18 Blood Pressure 138/52 L Pulse Oximetry 98 05/21/20 21:18 05/21/20 22:00 05/22/20 00:00 Temperature 37.9 C H Pulse Rate 76 66 Respiratory Rate Blood Pressure Pulse Oximetry 05/22/20 00:02 05/22/20 02:00 05/22/20 04:00 Temperature 36.7 C Pulse Rate 65 67 69 Respiratory Rate 18 Blood Pressure 113/56 L Pulse Oximetry 98 05/22/20 06:00 05/22/20 08:00 05/22/20 08:22 Temperature Pulse Rate 73 73 79 Respiratory Rate Blood Pressure Pulse Oximetry 05/22/20 08:25 05/22/20 10:00 05/22/20 12:22 Temperature 37.1 C Pulse Rate 78 75 72 Respiratory Rate 12 Blood Pressure 138/68 Pulse Oximetry 100 05/22/20 12:29 05/22/20 14:00 Temperature 37.3 C Pulse Rate 74 71 Respiratory Rate 12 Blood Pressure 133/45 L Pulse Oximetry 97 Intake/Output Intake/Output: Intake & Output 05/19/20 05/20/20 05/21/20 05/22/20 23:59 23:59 23:59 23:59 Intake Total 2290 3612 1830 Output Total 1375 2600 2000 Balance 915 1012 -170 Meds/Results Medications: Active Medications Generic Name Dose Route Start Last Admin Trade Name Freq PRN Reason Stop Dose Admin Acetaminophen 650 mg 05/21/20 20:54 05/21/20 21:18 Acetaminophen 325 Mg Tablet PO 650 mg Q4H PRN Administration Headache Al Hydrox/Mg Hydrox/Simethicone 30 ml 05/21/20 08:26 Mag Hydrox/Al Hydrox/Simeth 30 Ml Udc PO Q6H PRN Indigestion Aspirin 81 mg 05/22/20 09:00 05/22/20 08:22 Aspirin 81 Mg Enteric Tablet PO 81 mg QAM CRISTI Administration Atorvastatin Calcium 20 mg 05/20/20 21:00 05/21/20 21:15 Atorvastatin 20 Mg Tablet PO 20 mg HS CRISTI Administration Carvedilol 6.25 mg 05/20/20 21:00 05/22/20 08:22 Carvedilol 6.25 Mg Tablet PO 6.25 mg Q12H CRISTI Administration Chlorpromazine HCl 25 mg 05/22/20 10:13 05/22/20 11:17 Chlorpromazine Hcl 25 Mg Tablet PO 25 mg Q6H PRN Administration Hiccups Dextrose 12.5 gm 05/20/20 19:04 Dextrose 50% 25 Gm/50 Ml Syringe IV PUSH PRN PRN Hypoglycemia Protocol Diazepam 5 mg 05/21/20 08:25 05/21/20 16:34 Diazepam (*Crx) 5 Mg Tablet PO 5 mg Q6H PRN Administration Hiccups Enoxaparin Sodium 40 mg 05/23/20 09:00 Enoxaparin 40 Mg/0.4 Ml Syringe SUB-Q DAILY CRISTI Glucagon 1 mg 05/20/20 19:04 Glucagon For Inj 1 Mg Vial IM PRN PRN Hypoglycemia Protocol Glucose 15 gm 05/20/20 19:04 Glucose Oral Gel 15 Gm Of Glucse In 37.5 Gm Tube PO PRN PRN Hypoglycemia Protocol Imipenem/Cilastatin Sodium 500 100 mls @ 300 mls/hr 05/20/20 19:00 05/22/20 12:31 mg/ Dextrose IVPB Infused Q6HR CRISTI Infusion Dextrose 1,000 mls @ 100 mls/hr 05/20/20 19:04 Dextrose 5% 1,000 Ml IVPB PRN PRN Hypoglycemia Protocol Insulin Aspart 2 - 5 units 05/21/20 08:00 05/22/20 11:31 Insulin Aspart (*Bkc) 100 Units/Ml SUB-Q 2 units TIDWM CRISTI Administration Protocol Insulin Detemir 10 units 05/22/20 21:00 Insulin Detemir 100 Units/Ml SUB-Q Q12HR [facility] Lisinopril 5 mg 05/20/20 21:00 05/22/20 08:22 Lisinopril 5 Mg Tablet PO 5 mg Q12HR [facility] Administration Magnesium Oxide 400 mg 05/21/20 09:00 05/22/20
--- NOTE | 2020-05-22 15:43 | CONS_ITS ---
REASON FOR CONSULTATION Osteomyelitis, acute of the right foot. HISTORY OF PRESENT ILLNESS A 69-year-old male with poorly controlled diabetes. ?He was taken to the operating room yesterday by Dr. 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 ?Findings included gross purulence in the 3rd intermetatarsal space, also soft tissue infection surrounding. ?He recently was admitted to the hospital on May 20 with 2 days of dizziness and fatigue, also an ulcer over the plantar aspect of the right foot of 3 days duration. ?He has been nonadherent with his medical care since his last hemoglobin A1c a year ago. While here, the patient also was taken to the operating room on May [address] Ewing, and purulence was encountered as well in the area of the right 3rd toe, gangrene was also noted. ?The toe itself was gangrenous. ?The patient has been on imipenem and vancomycin since arrival. ?He has had positive blood cultures. ?Consult requested. ?I was not notified of the consult until an hour and a half ago. ?He has had no foot pain. ?No fever, chills, or sweats. ?No recent antibiotics. ?No trauma that he is aware of. ALLERGIES Penicillin, caused a vague nerve sensitivity to his fingers. ?He has had no problems with the imipenem. BODY AFTER ALLERGIES PRESENT MEDICATIONS As above. HABITS No tobacco. ?No alcohol. PAST MEDICAL HISTORY AICD placement last year for complete heart block, shoulder fracture, peripheral vascular disease, PAT and NSVT, nonischemic cardiomyopathy, heart failure, apical mural thrombosis. REVIEW OF SYSTEMS 14-point review otherwise negative. FAMILY HISTORY Cancer and [place]. SOCIAL HISTORY He is , works. ?Lives locally and plans on staying with his niece in [place] after this discharge. PHYSICAL EXAMINATION GENERAL: Chronically ill-appearing male older than his actual age. ?No acute distress. VITAL SIGNS: ?T-max 37.9, 133/45, 74, 12, 97% on room air. SKIN: No generalized rashes. ?No erythroderma. EENT: ?The conjunctivae are normal. ?The pupils are equal, round, reactive to light. ?The oropharynx, oral mucosa normal. NECK: No masses or thyromegaly. LUNGS: ?Clear to auscultation and percussion. CARDIAC: Regular rate and rhythm. ?No murmur or gallop. ABDOMEN: ?Nontender, soft. ?No organomegaly. ?No masses. EXTREMITIES: His right foot is dressed. ?He has some erythema over the mid matias on the right. ?He has stasis dermatitis changes over both mid shins as well. LABORATORY DATA Blood cultures from admission 1 out of 2 sets, Proteus vulgaris, susceptibility pending. ?Wound culture from the emergency room, superficial swab, moderate white cells, many mixed bacterial chaparrita. ? The patient's white blood cell count 16.3 on arrival, 16.9 today; hemoglobin 9; platelets are 362. ?Differential is unremarkable. ?He has hyponatremia though being corrected up to 134, low potassium, low chloride, high CO2. BUN and creatinine normal. Glucose originally 334, now 200. ?His A1c 12.9%. ?Alkaline phosphatase 173. ?CRP 16.4, albumin 2.8. ?Urinalysis, no evidence of infection. ?Hepatitis panel from 08/06/2019 showed a reactive hepatitis C. RADIOLOGY Lower extremity CT angio showed delayed flow without proximal stenosis at the popliteal, nondiagnostic otherwise. He had right foot 3-vessel runoff, 3rd metatarsal base subacute stress fracture, inguinal adenopathy, gas in the area between 3rd and 4th metatarsal bones. ?THOMAS, no significant arterial occlusive disease. ?Foot x-ray on admission, 3rd proximal phalanx erosion, dislocation of 3rd MTP, polyarticular osteoarthritis. ?Chest x-ray, cardiomegaly. ASSESSMENT 1) Diabetic foot infection with acute osteomyelitis of the right 3rd metatarsal and proximal phalanx, no
[2020-05-22 16:33] LABS: Glucose Point of Care 257 (65-105)
[2020-05-22] MEDS: ATORVASTATIN 20 MG TABLET PO (20:37)
[2020-05-22] MEDS: INSULIN DETEMIR 100 UNITS/ML 10 UNITS SUB-Q (21:15)
[2020-05-22 21:24] LABS: Glucose Point of Care 139 (65-105)
[2020-05-23] VITALS (21 sets, daily range): BP systolic 102–147; BP diastolic 50–63; PULSE 68–84; RESP 12–20; TEMP 35.9–36.6; O2SAT 95–100
[2020-05-23 04:59] LABS: Basophils Percent Auto 0.3 % (0.2-1.2); Eosinophils Absolute Auto 0.4 K/mm3 (0-0.3); Eosinophils Percent Auto 2.2 % (0-4.4); Hematocrit 28.5 % (42.0-52.0); Hemoglobin 9.3 g/dL (14.0-18.0); Immature Granulocyte Percent A 0.6 % (0-0.5); Lymphocytes Absolute Auto 1.26 K/mm3 (0.9-3.2); Lymphocytes Percent Auto 8.1 % (18.3-44.2); Mean Corpuscular HGB Conc 32.6 g/dl (32-36); Mean Corpuscular Hemoglobin 29.3 pg (26-34); Mean Corpuscular Volume 89.9 fl (80-100); Mean Platelet Volume 9.9 fl (7.4-10.4); Monocytes Percent Auto 6.5 % (2.6-8.5); Neutrophils Absolute Auto 12.8 K/mm3 (1.3-6.7); Neutrophils Percent Auto 82.3 % (45.5-73.1); Platelet Count Result 404 k/mm3 (150-375); Red Blood Count 3.17 M/mm3 (4.6-6.20); Red Cell Distribution Width 12.7 % (11.5-14.5); White Blood Count 15.6 K/mm3 (4.5-10.0)
[2020-05-23 05:07] LABS: Albumin Level 2.9 g/dL (3.5-5.1); Anion Gap 0 mmol/L (8-16); Blood Urea Nitrogen 5 mg/dL (9-20); Calcium 7.9 mg/dL (8.4-10.2); Carbon Dioxide 38 mmol/L (22-30); Chloride 97 mmol/L (98-107); Estimated CRCL calculation 91 ml/min; Estimated Glomerular Filt Rate > 60; Glucose 107 mg/dL (75-110); Magnesium 2.2 mg/dL (1.6-2.3); Potassium 3.2 mmol/L (3.4-5.0); Sodium 135 mmol/L (137-145)
--- NOTE | 2020-05-23 07:54 | PM.PNCARD ---
Progress Note: A&P Assessment and Plan (1) NICM (nonischemic cardiomyopathy): Code(s): I42.8 - Other cardiomyopathies Status: Acute Assessment and Plan: EF improved to 40-45% with diastolic dysfunction. (2) Presence of combination internal cardiac defibrillator (ICD) and pacemaker: Code(s): Z95.810 - Presence of automatic (implantable) cardiac defibrillator Status: Acute Assessment and Plan: [employer] interrogation on 05/23/20 was normal and had pacemaker stimulation held with ongoing hiccups. Therefore, hiccups not related to pacemaker lead diaphragmatic stimulation. Since no obvious etiology for hiccups, consider empiric treatment with Neurontin or Baclofen, but will leave this up to hospitalist. (3) Systolic and diastolic CHF, chronic: Code(s): I50.42 - Chronic combined systolic (congestive) and diastolic (congestive) heart failure Status: Acute Assessment and Plan: Stable. Monitor fluid status as he will need diuretics prn. (4) Apical mural thrombus: Code(s): I51.3 - Intracardiac thrombosis, not elsewhere classified Status: Acute Assessment and Plan: Echo shows no new apical thrombus, only stable caclified apical thrombus. Discontinue warfarin. He was on warfarin to decrease risk of recurrence of apical thrombus given cardiomyopathy and calcified thrombus present. Received FFP and Vit K for high INR at 9 on admission. (5) PAT (paroxysmal atrial tachycardia): Code(s): I47.1 - Supraventricular tachycardia Status: Acute Assessment and Plan: Stable with short run of PAT. On Coreg. (6) Diabetic ulcer of right foot associated with diabetes mellitus due to underlying condition: Qualifiers: Diabetic foot ulcer location: other Non-pressure ulcer stage: with necrosis of bone Qualified Code(s): E08.621 - Diabetes mellitus due to underlying condition with foot ulcer; 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 Code(s): E08.621 - Diabetes mellitus due to underlying condition with foot ulcer; L97.519 - Non-pressure chronic ulcer of other part of right foot with unspecified severity Status: Acute Assessment and Plan: General surgery and Orthopedic following. (7) Elevated troponin: Code(s): R77.8 - Other specified abnormalities of plasma proteins Status: Acute Assessment and Plan: Flat and moderately elevated due to type II infarct from infection likely. Echo shows improvement of EF. No further workup for this. Subjective Date/time seen: 05/23/20 07:54 Denies chest pain or sob. Has hiccups. Exam Const: General: cooperative, healthy appearing and comfortable Other: Having hiccups Resp: Auscultation: clear to auscultation bilaterally, no crackles, no rales, no rhonchi and no wheezes Cardio: Jugular venous distension: no JVD Rate: regular rate Rhythm: regular rhythm Heart sounds: no murmurs Peripheral pulses: posterior tibial pulses not present and dorsalis pedis pulses not present GI: GI Palp: No abdominal tenderness and Yes Soft to palpation Neuro: General: oriented to person, oriented to place and oriented to time Extrem: Right lower extremity: no edema Left lower extremity: no edema Other: Right foot bandaged. Left foot is very dry. Objective Data Vital Signs Vital Signs: Vital Signs - 24 hr 05/22/20 08:00 05/22/20 08:22 05/22/20 08:25 Temperature 98.8 F Pulse Rate 73 79 78 Respiratory Rate 12 Blood Pressure 138/68 Pulse Oximetry 100 05/22/20 10:00 05/22/20 12:22 05/22/20 12:29 Temperature 99.1 F Pulse Rate 75 72 74 Respiratory Rate 12 Blood Pressure 133/45 L Pulse Oximetry 97 05/22/20 14:00 05/22/20 16:00 05/22/20 18:00 Temperature Pulse Rate 71 70 71 Respiratory Rate Blood Pressure Pulse Oximetry 05/22/20 19:23 05/22/20 20:00 05/22/20 20:37 Temperature 98.3 F Pulse Rate 69 6
[2020-05-23] MEDS: MAGNESIUM OXIDE 400 MG TABLET PO ×2 (08:32→17:54)
[2020-05-23] MEDS: ENOXAPARIN 40 MG/0.4 ML SYRINGE SUB-Q (08:32)
[2020-05-23] MEDS: carvediloL 6.25 MG TABLET PO ×2 (08:32→20:51)
[2020-05-23] MEDS: lisinopriL 5 MG TABLET PO ×2 (08:33→20:51)
[2020-05-23] MEDS: ASPIRIN 81 MG ENTERIC TABLET PO (08:33)
[2020-05-23 08:35] LABS: Glucose Point of Care 121 (65-105)
[2020-05-23] MEDS: INSULIN DETEMIR 100 UNITS/ML 10 UNITS SUB-Q ×2 (08:42→21:10)
[2020-05-23] MEDS: LIDOCAINE HCL 1% PF INJ 5 ML VIAL INFILTRATE (08:45)
--- NOTE | 2020-05-23 11:02 | PM.PNORT ---
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 Dressing changed. Concern for viability of the 4th ray at this time. Patient understands potential need for further surgical intervention. Will allow 4th ray to declare itself. Continue daily dressing changes with Dakin's soaked gauze to wound bed, cover incisions with adaptic and cover dry. Continue to elevate RLE on pillows. Continue IV antibiotics per medicine team. ID consult, appreciate recommendations. Wound cultures pending. Blood cultures with Proteus. Plan return to OR for definitive surgical intervention pending viability of 4th ray and wound bed appearance. Scheduled for TuesdayMay 26. Discussed nonoperative and operative treatment options with the patient. Risks and benefits of each as well as alternatives were reviewed. All of the patient's questions were answered. The risks of surgery reviewed including but not limited to: Neurovascular damage, wound complication, infection, blood clot, pulmonary embolus, stroke, myocardial infarction, and anesthetic risks up to and including . Continued pain and possible dysfunction were explained. Specific risks of the procedure including later recurrence of deformity. No guarantees were offered. If hardware used, discussed risk of failure/ breakage and possible need for removal. If complications occur, the patient understands the need for further treatment, possible further surgery. Patient verbalizes understanding and wishes to proceed. PLAN: debridement right diabetic foot infection, excision osteomyelitis. (2) Diabetic neuropathy associated with diabetes mellitus due to underlying condition: Qualifiers: Diabetes mellitus complication detail: diabetic polyneuropathy Qualified Code(s): E08.42 - Diabetes mellitus due to underlying condition with diabetic polyneuropathy Code(s): E08.40 - Diabetes mellitus due to underlying condition with diabetic neuropathy, unspecified Status: Acute Assessment and Plan: Appreciate care coordination assistance in ensuring appropriate follow up upon discharge. (3) Diabetic ulcer of right foot associated with diabetes mellitus due to underlying condition: Qualifiers: Diabetic foot ulcer location: other Non-pressure ulcer stage: with necrosis of bone Qualified Code(s): E08.621 - Diabetes mellitus due to underlying condition with foot ulcer; 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 Code(s): E08.621 - Diabetes mellitus due to underlying condition with foot ulcer; L97.519 - Non-pressure chronic ulcer of other part of right foot with unspecified severity Status: Acute Subjective Subjective Date/Time Seen: 05/23/20 11:02 Patient awake and alert. No new complaints. Minimal pain right foot. Exam Const: General: comfortable and no acute distress Resp: Effort & Inspection: normal respiratory effort Cardio: Rate: regular rate Rhythm: regular rhythm GI: Inspection: non-distended GI Palp: Yes Soft to palpation and No Tenderness to palpation present (GI) Skin: Wounds: wounds noted (Large wound right foot ) Neuro: Cognition (Neuro): normal cognition Extrem: Right lower extremity: foot (see below ) Details: motor-sensory exam Details: two point discrimination abnormal and light-touch abnormal; abnormal capillary refill, abnormal to inspection and no tenderness Other: Unable to palpate pedal pulses. Incision on the dorsal and plantar aspect of the site of the right third ray well-approximated. Moderate amount of serosanguineous drainage noted. Large void, open wound with gauze packing in place. Gauze removed. Dressing changed. Dakin's dampened gauze p
[2020-05-23 12:36] LABS: Glucose Point of Care 201 (65-105)
--- NOTE | 2020-05-23 12:41 | PM.IMPN ---
Progress Note: A&P Assessment and Plan (1) Acute osteomyelitis of toe of right foot: Code(s): M86.171 - Other acute osteomyelitis, right ankle and foot Status: Acute Assessment and Plan: Patient most likely has had soft tissue damage for a while that has ultimately resulted in osteomyelitis and gangrene. Patient admitted on 05/20/2020 and underwent debridement of the right 3rd toe later that day. CTA BLE showing ulceration with exposure of right 3rd metatarsal head, osteomyelitis and scattered foci of gas along this digit and between 3rd and 4th metatarsal bones; can't exclude fasciitis. Right inguinal lymphadenopathy felt to be reactive; malignancy unlikely. 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 Poor sensation to the right foot which is chronic related to his diabetes Now with bacteremia with BCx growing Proteus vulgaris (1of2 bottles). WCx showing mixed chaparrita. Most likely bacteremia related to the foot infection. WBC better today and no fevers. Continue Primaxin monotherapy. Appreciate ID, Orthopedic and general surgery input. Follow WBC and fever curve. PICC line in place for chcf IV abx. (2) Supratherapeutic INR: Code(s): R79.1 - Abnormal coagulation profile Status: Acute Assessment and Plan: Patient on Coumadin due to apical thrombus. Echocardiogram from June showing a small calcified mass which could be a calcified chronic thrombus. INR 9.7. Elevated INR related to continued Coumadin use, infectious process and poor oral intake. No evidence of bleeding. Hemoglobin 11. Patient was transfused with FFP and given vitamin K on the day of admission. INR better yesterday at 1.3. Echo showing stable calcified apical mural thrombus but nothing acute. No plans at this time to resume Coumadin per Cardiology. Lovenox for DVT prophylaxis. Hgb has dropped to the 9 range but stable (3) Elevated troponin: Code(s): R77.8 - Other specified abnormalities of plasma proteins Status: Acute Assessment and Plan: Patient had elevated troponins on admission to 0.145. No complaints of chest pain. EKG showing atrial sensed paced rhythm. No hypoxia or tachycardia to suggest PE plus patient is anticoagulated. Echo showing EF 40-45% and Grade I diastolic dysfunction. Probably a type 2 MT related to infectious process. Appreciate Cardiology input (4) Acute hyponatremia: Code(s): E87.1 - Hypo-osmolality and hyponatremia Status: Acute Assessment and Plan: Sodium 122. Urine sodium less than 5 to suggest dehydration. Patient admits he has not been eating the past few days and has continued his Lasix and spironolactone. We held his diuretics and started IV fluids. Na climbed to 130 so IV fluids stopped on 05/21/20. Na stable at 135. Will follow. Resume diuretics as Lasix at lower dose. (5) Systolic and diastolic CHF, chronic: Code(s): I50.42 - Chronic combined systolic (congestive) and diastolic (congestive) heart failure Status: Acute Assessment and Plan: In June of 2019 showing EF of 20-25%, diastolic dysfunction, and [id number] mitral regurgitation. Patient clinically appears euvolemic and probably dehydrated. Repeat Echo showing EF 40-45% and Grade I diastolic dysfunction. Continue Coreg and lisinopril. Cardiology following. Resume Lasix at lower dose (6) Diabetic ulcer of right foot associated with diabetes mellitus due to underlying condition: Qualifiers: Diabetic foot ulcer location: other Non-pressure ulcer stage: with necrosis of bone Qualified Code(s): E08.621 - Diabetes mellitus due to underlying condition with foot ulcer; 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 Code(s): E08.621 - Diabetes mellitus due to underlying condition with foot ulcer; L97.519 - Non-pressure chronic ulcer of ot
[2020-05-23] MEDS: POTASSIUM CHLORIDE 20 MEQ TABLET 40 MEQ PO (12:55)
[2020-05-23] MEDS: SOD HYPOCHLORITE 1/4 STRENGTH 473 ML 1 APPLIC TOPICAL ×2 (12:56→20:52)
[2020-05-23] MEDS: EUCERIN CREAM 120 GM JAR 1 APPLIC TOPICAL (12:56)
[2020-05-23] MEDS: INSULIN ASPART (*BKC) 100 UNITS/ML SUB-Q (12:56)
[2020-05-23] MEDS: chlorproMAZINE HCL 25 MG TABLET PO (14:39)
[2020-05-23] MEDS: CENTRAL LINE FLUSH 10 ML IV PUSH ×2 (14:42→21:11)
--- NOTE | 2020-05-23 15:35 | WPDINFPN2 ---
Progress Note: A&P Assessment and Plan (1) Acute osteomyelitis of toe of right foot: Code(s): M86.171 - Other acute osteomyelitis, right ankle and foot Status: Acute Assessment and Plan: 1. Acute OM of R foot with resulting bacteremia and infection, Proteus isolated 2. Poorly controlled DM 3. PCN allergy vs intolerance REC Imipenem through 07/01, PICC RUE today, ok discharge planning, he will stay with his niece in [facility] Subjective Date/time seen: 05/23/20 15:35 Interval history: no pain, no f/c/s Exam Narrative: Exam Narrative: afebrile Const: General: no acute distress Resp: Auscultation: clear to auscultation bilaterally Cardio: Rate: regular rate Rhythm: regular rhythm Heart sounds: no murmurs GI: GI Palp: Yes Firmness to palpation present (GI), No Tenderness to palpation present (GI) and No Guarding due to palpation present (GI) Objective Data Vital Signs Vital Signs: Vital Signs - 24 hr 05/22/20 16:00 05/22/20 18:00 05/22/20 19:23 Temperature 36.8 C Pulse Rate 70 71 69 Respiratory Rate 18 Blood Pressure 119/56 L Pulse Oximetry 97 05/22/20 20:00 05/22/20 20:37 05/22/20 22:00 Temperature Pulse Rate 67 71 72 Respiratory Rate Blood Pressure Pulse Oximetry 05/22/20 23:41 05/23/20 00:00 05/23/20 01:59 Temperature 36.9 C Pulse Rate 70 68 73 Respiratory Rate 18 Blood Pressure 130/61 Pulse Oximetry 98 05/23/20 03:40 05/23/20 04:00 05/23/20 05:57 Temperature 36.1 C L Pulse Rate 71 71 74 Respiratory Rate 16 Blood Pressure 135/62 Pulse Oximetry 98 05/23/20 08:00 05/23/20 08:32 05/23/20 08:45 Temperature 36.1 C L Pulse Rate 73 77 71 Respiratory Rate 12 Blood Pressure 147/63 H Pulse Oximetry 99 05/23/20 09:22 05/23/20 10:00 05/23/20 12:48 Temperature 36.6 C Pulse Rate 76 78 Respiratory Rate 12 Blood Pressure 121/60 Pulse Oximetry 95 99 Intake/Output Intake/Output: Intake & Output 05/20/20 05/21/20 05/22/20 05/23/20 23:59 23:59 23:59 23:59 Intake Total 2290 3612 1930 1040 Output Total 1375 2600 4100 700 Balance 915 1012 -2170 340 Meds/Results Medications: Active Medications Generic Name Dose Route Start Last Admin Trade Name Freq PRN Reason Stop Dose Admin Acetaminophen 650 mg 05/21/20 20:54 05/21/20 21:18 Acetaminophen 325 Mg Tablet PO 650 mg Q4H PRN Administration Headache Al Hydrox/Mg Hydrox/Simethicone 30 ml 05/21/20 08:26 Mag Hydrox/Al Hydrox/Simeth 30 Ml Udc PO Q6H PRN Indigestion Aspirin 81 mg 05/22/20 09:00 05/23/20 08:33 Aspirin 81 Mg Enteric Tablet PO 81 mg QAM CRISTI Administration Atorvastatin Calcium 20 mg 05/20/20 21:00 05/22/20 20:37 Atorvastatin 20 Mg Tablet PO 20 mg HS CRISTI Administration Carvedilol 6.25 mg 05/20/20 21:00 05/23/20 08:32 Carvedilol 6.25 Mg Tablet PO 6.25 mg Q12H CRISTI Administration Chlorpromazine HCl 25 mg 05/22/20 10:13 05/23/20 14:39 Chlorpromazine Hcl 25 Mg Tablet PO 25 mg Q6H PRN Administration Hiccups Dextrose 12.5 gm 05/20/20 19:04 Dextrose 50% 25 Gm/50 Ml Syringe IV PUSH PRN PRN Hypoglycemia Protocol Diazepam 5 mg 05/21/20 08:25 05/21/20 16:34 Diazepam (*Crx) 5 Mg Tablet PO 5 mg Q6H PRN Administration Hiccups Enoxaparin Sodium 40 mg 05/23/20 09:00 05/23/20 08:32 Enoxaparin 40 Mg/0.4 Ml Syringe SUB-Q 40 mg DAILY CRISTI Administration Glucagon 1 mg 05/20/20 19:04 Glucagon For Inj 1 Mg Vial IM PRN PRN Hypoglycemia Protocol Glucose 15 gm 05/20/20 19:04 Glucose Oral Gel 15 Gm Of Glucse In 37.5 Gm Tube PO PRN PRN Hypoglycemia Protocol Imipenem/Cilastatin Sodium 500 100 mls @ 300 mls/hr 05/20/20 19:00 05/23/20 12:55 mg/ Dextrose IVPB 300 mls/hr Q6HR CRISTI Administration Dextrose 1,000 mls @ 100 mls/hr 05/20/20 19:04 Dextrose 5% 1,000 Ml IVPB PRN PRN
[2020-05-23 17:02] LABS: Glucose Point of Care 193 (65-105)
[2020-05-23 20:48] LABS: Glucose Point of Care 177 (65-105)
[2020-05-23] MEDS: ATORVASTATIN 20 MG TABLET PO (20:51)
[2020-05-24] VITALS (15 sets, daily range): BP systolic 115–142; BP diastolic 54–61; PULSE 67–81; RESP 14–20; TEMP 36.1–36.6; O2SAT 99–100
[2020-05-24] MEDS: CENTRAL LINE FLUSH 10 ML IV PUSH ×3 (05:42→21:22)
[2020-05-24 05:53] LABS: Basophils Absolute Auto 0.1 K/mm3 (0.0-0.1); Basophils Percent Auto 0.4 % (0.2-1.2); Eosinophils Absolute Auto 0.3 K/mm3 (0-0.3); Eosinophils Percent Auto 2.5 % (0-4.4); Hematocrit 27.1 % (42.0-52.0); Hemoglobin 8.9 g/dL (14.0-18.0); Immature Granulocyte Absolute 0.08 K/mm3 (0.00-0.031); Immature Granulocyte Percent A 0.6 % (0-0.5); Lymphocytes Absolute Auto 1.01 K/mm3 (0.9-3.2); Lymphocytes Percent Auto 7.9 % (18.3-44.2); Mean Corpuscular HGB Conc 32.8 g/dl (32-36); Mean Corpuscular Hemoglobin 29.9 pg (26-34); Mean Corpuscular Volume 90.9 fl (80-100); Mean Platelet Volume 9.7 fl (7.4-10.4); Monocytes Absolute Auto 0.9 K/mm3 (0.1-0.6); Neutrophils Absolute Auto 10.4 K/mm3 (1.3-6.7); Neutrophils Percent Auto 81.6 % (45.5-73.1); Platelet Count Result 399 k/mm3 (150-375); Red Blood Count 2.98 M/mm3 (4.6-6.20); Red Cell Distribution Width 12.5 % (11.5-14.5); White Blood Count 12.8 K/mm3 (4.5-10.0)
[2020-05-24 06:10] LABS: Alanine Aminotransferase 29 U/L (4-50); Albumin Level 2.9 g/dL (3.5-5.1); Alkaline Phosphatase 153 U/L (38-126); Anion Gap 0 mmol/L (8-16); Aspartate Amino Transferase 46 U/L (17-59); Bilirubin,Total 0.8 mg/dL (0.2-1.3); Blood Urea Nitrogen 13 mg/dL (9-20); Calcium 7.9 mg/dL (8.4-10.2); Carbon Dioxide 37 mmol/L (22-30); Chloride 97 mmol/L (98-107); Estimated CRCL calculation 91 ml/min; Estimated Glomerular Filt Rate > 60; Glucose 129 mg/dL (75-110); Magnesium 2.2 mg/dL (1.6-2.3); Sodium 134 mmol/L (137-145)
[2020-05-24 08:17] LABS: Glucose Point of Care 135 (65-105)
[2020-05-24] MEDS: EUCERIN CREAM 120 GM JAR 1 APPLIC TOPICAL (08:41)
[2020-05-24] MEDS: lisinopriL 5 MG TABLET PO ×2 (08:41→21:21)
[2020-05-24] MEDS: MAGNESIUM OXIDE 400 MG TABLET PO ×2 (08:41→16:45)
[2020-05-24] MEDS: carvediloL 6.25 MG TABLET PO ×2 (08:42→21:21)
[2020-05-24] MEDS: FUROSEMIDE 20 MG TABLET PO (08:42)
[2020-05-24] MEDS: ENOXAPARIN 40 MG/0.4 ML SYRINGE SUB-Q (08:42)
[2020-05-24] MEDS: ASPIRIN 81 MG ENTERIC TABLET PO (08:42)
[2020-05-24] MEDS: INSULIN DETEMIR 100 UNITS/ML 10 UNITS SUB-Q ×2 (08:45→21:20)
[2020-05-24] MEDS: SOD HYPOCHLORITE 1/4 STRENGTH 473 ML 1 APPLIC TOPICAL ×2 (12:24→21:22)
[2020-05-24 12:37] LABS: Glucose Point of Care 227 (65-105)
[2020-05-24] MEDS: INSULIN ASPART (*BKC) 100 UNITS/ML SUB-Q ×2 (12:42→16:45)
--- NOTE | 2020-05-24 15:01 | PM.PNCARD ---
Progress Note: A&P Assessment and Plan (1) NICM (nonischemic cardiomyopathy): Code(s): I42.8 - Other cardiomyopathies Status: Acute Assessment and Plan: EF improved to 40-45% with diastolic dysfunction. (2) Presence of combination internal cardiac defibrillator (ICD) and pacemaker: Code(s): Z95.810 - Presence of automatic (implantable) cardiac defibrillator Status: Acute Assessment and Plan: [employer] interrogation on 05/23/20 was normal and had pacemaker stimulation held with ongoing hiccups. Therefore, hiccups not related to pacemaker lead diaphragmatic stimulation. Patient receiving Thorazine for it. (3) Systolic and diastolic CHF, chronic: Code(s): I50.42 - Chronic combined systolic (congestive) and diastolic (congestive) heart failure Status: Acute Assessment and Plan: Stable back on low dose Furosemide. Monitor fluid status as he will need diuretics prn. Will sign off. Please call with questions or change in clinical status. (4) Apical mural thrombus: Code(s): I51.3 - Intracardiac thrombosis, not elsewhere classified Status: Acute Assessment and Plan: Echo shows no new apical thrombus, only stable caclified apical thrombus. Discontinue warfarin. He was on warfarin to decrease risk of recurrence of apical thrombus given cardiomyopathy and calcified thrombus present. Received FFP and Vit K for high INR at 9 on admission. (5) PAT (paroxysmal atrial tachycardia): Code(s): I47.1 - Supraventricular tachycardia Status: Acute Assessment and Plan: Stable with short run of PAT. On Coreg. (6) Diabetic ulcer of right foot associated with diabetes mellitus due to underlying condition: Qualifiers: Diabetic foot ulcer location: other Non-pressure ulcer stage: with necrosis of bone Qualified Code(s): E08.621 - Diabetes mellitus due to underlying condition with foot ulcer; 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 Code(s): E08.621 - Diabetes mellitus due to underlying condition with foot ulcer; L97.519 - Non-pressure chronic ulcer of other part of right foot with unspecified severity Status: Acute Assessment and Plan: General surgery and Orthopedic following. (7) Elevated troponin: Code(s): R77.8 - Other specified abnormalities of plasma proteins Status: Acute Assessment and Plan: Flat and moderately elevated due to type II infarct from infection likely. Echo shows improvement of EF. No further workup for this. Subjective Date/time seen: 05/24/20 15:01 Denies chest pain or sob. Still has hiccups. Exam Const: General: cooperative, healthy appearing and comfortable Other: Having hiccups Resp: Auscultation: clear to auscultation bilaterally, no crackles, no rales, no rhonchi and no wheezes Cardio: Jugular venous distension: no JVD Rate: regular rate Rhythm: regular rhythm Heart sounds: no murmurs Peripheral pulses: posterior tibial pulses not present and dorsalis pedis pulses not present GI: GI Palp: No abdominal tenderness and Yes Soft to palpation Neuro: General: oriented to person, oriented to place and oriented to time Extrem: Right lower extremity: no edema Left lower extremity: no edema Other: Right foot bandaged. Left foot is very dry. Objective Data Vital Signs Vital Signs: Vital Signs - 24 hr 05/23/20 16:00 05/23/20 17:01 05/23/20 18:00 Temperature 97.9 F Pulse Rate 84 80 76 Respiratory Rate 12 Blood Pressure 136/63 Pulse Oximetry 100 05/23/20 19:44 05/23/20 20:00 05/23/20 20:51 Temperature 96.7 F L Pulse Rate 79 78 74 Respiratory Rate 20 Blood Pressure 102/50 L Pulse Oximetry 98 05/23/20 22:00 05/23/20 23:19 05/24/20 00:00 Temperature 97.9 F Pulse Rate 71 72 71 Respiratory Rate 20 Blood Pressure 122/55 L Pulse Oximetry 100 05/24/20 02:00 05/24/20 03:44 05/24/20 04:00
--- NOTE | 2020-05-24 15:40 | PM.IMPN ---
Progress Note: A&P Assessment and Plan (1) Acute osteomyelitis of toe of right foot: Code(s): M86.171 - Other acute osteomyelitis, right ankle and foot Status: Acute Assessment and Plan: Patient most likely has had soft tissue damage for a while that has ultimately resulted in osteomyelitis and gangrene. Patient admitted on 05/20/2020 and underwent debridement of the right 3rd toe later that day. CTA BLE showing ulceration with exposure of right 3rd metatarsal head, osteomyelitis and scattered foci of gas along this digit and between 3rd and 4th metatarsal bones; can't exclude fasciitis. Right inguinal lymphadenopathy felt to be reactive; malignancy unlikely. 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 Poor sensation to the right foot which is chronic related to his diabetes Now with bacteremia with BCx growing Proteus vulgaris (1of2 bottles). WCx showing mixed chaparrita. Most likely bacteremia related to the foot infection. WBC better again today and no fevers. Continue Primaxin monotherapy. Appreciate ID, Orthopedic and general surgery input. Follow WBC and fever curve. PICC line in place for mcc IV abx. (2) Supratherapeutic INR: Code(s): R79.1 - Abnormal coagulation profile Status: Acute Assessment and Plan: Patient on Coumadin due to apical thrombus. Echocardiogram from June showing a small calcified mass which could be a calcified chronic thrombus. INR 9.7. Elevated INR related to continued Coumadin use, infectious process and poor oral intake. No evidence of bleeding. Hemoglobin 11. Patient was transfused with FFP and given vitamin K on the day of admission. INR better at 1.3. Echo showing stable calcified apical mural thrombus but nothing acute. No plans at this time to resume Coumadin per Cardiology. Lovenox for DVT prophylaxis. Hgb has dropped to the 8-9 range but stable (3) Elevated troponin: Code(s): R77.8 - Other specified abnormalities of plasma proteins Status: Acute Assessment and Plan: Patient had elevated troponins on admission to 0.145. No complaints of chest pain. EKG showing atrial sensed paced rhythm. No hypoxia or tachycardia to suggest PE plus patient is anticoagulated. Echo showing EF 40-45% and Grade I diastolic dysfunction. Probably a type 2 ME related to infectious process. Appreciate Cardiology input (4) Acute hyponatremia: Code(s): E87.1 - Hypo-osmolality and hyponatremia Status: Acute Assessment and Plan: Sodium 122. Urine sodium less than 5 to suggest dehydration. Patient admits he has not been eating the past few days and has continued his Lasix and spironolactone. We held his diuretics and started IV fluids. Na climbed to 130 so IV fluids stopped on 05/21/20. Na stable now. Lasix low dose resumed. Will follow. (5) Systolic and diastolic CHF, chronic: Code(s): I50.42 - Chronic combined systolic (congestive) and diastolic (congestive) heart failure Status: Acute Assessment and Plan: In June of 2019 showing EF of 20-25%, diastolic dysfunction, and [id number] mitral regurgitation. Patient clinically appears euvolemic and probably dehydrated. Repeat Echo showing EF 40-45% and Grade I diastolic dysfunction. Continue Coreg, lisinopril and Lasix. Cardiology following. (6) Diabetic ulcer of right foot associated with diabetes mellitus due to underlying condition: Qualifiers: Diabetic foot ulcer location: other Non-pressure ulcer stage: with necrosis of bone Qualified Code(s): E08.621 - Diabetes mellitus due to underlying condition with foot ulcer; 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 Code(s): E08.621 - Diabetes mellitus due to underlying condition with foot ulcer; L97.519 - Non-pressure chronic ulcer of other part of right foot with unspecifie
[2020-05-24 16:45] LABS: Glucose Point of Care 219 (65-105)
[2020-05-24 20:58] LABS: Glucose Point of Care 233 (65-105)
[2020-05-24] MEDS: ATORVASTATIN 20 MG TABLET PO (21:21)
[2020-05-24] MEDS: chlorproMAZINE HCL 25 MG TABLET PO (23:31)
[2020-05-25] MEDS: CENTRAL LINE FLUSH 10 ML IV PUSH ×3 (06:00→22:23)
[2020-05-25] MEDS: chlorproMAZINE HCL 25 MG TABLET PO ×3 (06:00→17:13)
[2020-05-25 07:37] LABS: Glucose Point of Care 131 (65-105)
[2020-05-25 08:18] VITALS: BP 125/65; PULSE 74; RESP 22; TEMP 36.2; O2SAT 99
[2020-05-25] MEDS: MAGNESIUM OXIDE 400 MG TABLET PO ×2 (09:20→17:13)
[2020-05-25] MEDS: FUROSEMIDE 20 MG TABLET PO (09:20)
[2020-05-25] MEDS: ENOXAPARIN 40 MG/0.4 ML SYRINGE SUB-Q (09:20)
[2020-05-25] MEDS: lisinopriL 5 MG TABLET PO ×2 (09:20→20:53)
[2020-05-25 09:21] VITALS: PULSE 78
[2020-05-25] MEDS: INSULIN DETEMIR 100 UNITS/ML 10 UNITS SUB-Q ×2 (09:21→20:54)
[2020-05-25] MEDS: ASPIRIN 81 MG ENTERIC TABLET PO (09:21)
[2020-05-25] MEDS: carvediloL 6.25 MG TABLET PO ×2 (09:21→20:53)
[2020-05-25] MEDS: EUCERIN CREAM 120 GM JAR 1 APPLIC TOPICAL (11:19)
[2020-05-25] MEDS: SOD HYPOCHLORITE 1/4 STRENGTH 473 ML 1 APPLIC TOPICAL ×2 (11:19→20:54)
[2020-05-25 11:54] LABS: Glucose Point of Care 226 (65-105)
[2020-05-25] MEDS: INSULIN ASPART (*BKC) 100 UNITS/ML SUB-Q (13:08)
--- NOTE | 2020-05-25 14:05 | PC.NURSE ---
Addendum entered by Shanthi Vivas RNLP 05/25/20 14:09: Report received from DONNIE Vale. Original Note: Patient transferred to room 340 from IMU room 200. Report received from nurs. Patient oriented to room policies and procedures. Belongings brought with patient.
--- NOTE | 2020-05-25 14:12 | PC.NURSE ---
This patient, Dimitry Pa, was transferred to [facility] on 05/25/20 at 1405. Personal belongings sent with patient. Report given to Padmini FIELDS. Appropriate documentation sent with patient.
[2020-05-25 15:05] VITALS: BP 99/44; PULSE 81; RESP 18; TEMP 36.2; O2SAT 95
--- NOTE | 2020-05-25 15:22 | PM.IMPN ---
Progress Note: A&P Assessment and Plan (1) Acute osteomyelitis of toe of right foot: Code(s): M86.171 - Other acute osteomyelitis, right ankle and foot Status: Acute Assessment and Plan: Patient most likely has had soft tissue damage for a while that has ultimately resulted in osteomyelitis and gangrene. Patient admitted on 05/20/2020 and underwent debridement of the right 3rd toe later that day. CTA BLE showing ulceration with exposure of right 3rd metatarsal head, osteomyelitis and scattered foci of gas along this digit and between 3rd and 4th metatarsal bones; can't exclude fasciitis. Right inguinal lymphadenopathy felt to be reactive; malignancy unlikely. 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 Poor sensation to the right foot which is chronic related to his diabetes Now with bacteremia with BCx growing Proteus vulgaris (1of2 bottles). WCx showing Bacteroids. Most likely bacteremia related to the foot infection. WBC better and no fevers. Continue Primaxin monotherapy. Appreciate ID, Orthopedic and general surgery input. Follow WBC and fever curve. PICC line in place for [facility] IV abx. (2) Supratherapeutic INR: Code(s): R79.1 - Abnormal coagulation profile Status: Acute Assessment and Plan: Patient on Coumadin due to apical thrombus. Echocardiogram from June showing a small calcified mass which could be a calcified chronic thrombus. INR 9.7. Elevated INR related to continued Coumadin use, infectious process and poor oral intake. No evidence of bleeding. Hemoglobin 11. Patient was transfused with FFP and given vitamin K on the day of admission. INR better at 1.3. Echo showing stable calcified apical mural thrombus but nothing acute. No plans at this time to resume Coumadin per Cardiology. Lovenox for DVT prophylaxis. Hgb has dropped to the 8-9 range but stable (3) Elevated troponin: Code(s): R77.8 - Other specified abnormalities of plasma proteins Status: Acute Assessment and Plan: Patient had elevated troponins on admission to 0.145. No complaints of chest pain. EKG showing atrial sensed paced rhythm. No hypoxia or tachycardia to suggest PE plus patient is anticoagulated. Echo showing EF 40-45% and Grade I diastolic dysfunction. Probably a type 2 [place] related to infectious process. Appreciate Cardiology input (4) Acute hyponatremia: Code(s): E87.1 - Hypo-osmolality and hyponatremia Status: Acute Assessment and Plan: Sodium 122. Urine sodium less than 5 to suggest dehydration. Patient admits he has not been eating the past few days and has continued his Lasix and spironolactone. We held his diuretics and started IV fluids. Na climbed to 130 so IV fluids stopped on 05/21/20. Na stable now. Lasix resumed at lower dose. Follow (5) Systolic and diastolic CHF, chronic: Code(s): I50.42 - Chronic combined systolic (congestive) and diastolic (congestive) heart failure Status: Acute Assessment and Plan: In June of 2019 showing EF of 20-25%, diastolic dysfunction, and [id number] mitral regurgitation. Patient clinically appears euvolemic and probably dehydrated. Repeat Echo showing EF 40-45% and Grade I diastolic dysfunction. Continue Coreg, lisinopril and Lasix. Cardiology following. Watch BP (6) Diabetic ulcer of right foot associated with diabetes mellitus due to underlying condition: Qualifiers: Diabetic foot ulcer location: other Non-pressure ulcer stage: with necrosis of bone Qualified Code(s): E08.621 - Diabetes mellitus due to underlying condition with foot ulcer; 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 Code(s): E08.621 - Diabetes mellitus due to underlying condition with foot ulcer; L97.519 - Non-pressure chronic ulcer of other part of right foot with unspecified clint
[2020-05-25 16:40] LABS: Glucose Point of Care 182 (65-105)
[2020-05-25 20:44] VITALS: BP 123/59; PULSE 85; RESP 12; TEMP 36.7; O2SAT 100
[2020-05-25 20:53] VITALS: PULSE 74
[2020-05-25] MEDS: ATORVASTATIN 20 MG TABLET PO (20:53)
[2020-05-25 21:23] LABS: Glucose Point of Care 171 (65-105)
[2020-05-26 05:00] VITALS: BP 122/55; PULSE 70; RESP 14; TEMP 36.2; O2SAT 98
[2020-05-26] MEDS: CENTRAL LINE FLUSH 20 ML IV PUSH (05:29)
[2020-05-26] MEDS: CENTRAL LINE FLUSH 10 ML IV PUSH ×3 (05:29→21:01)
[2020-05-26 05:45] LABS: Basophils Percent Auto 0.3 % (0.2-1.2); Eosinophils Absolute Auto 0.3 K/mm3 (0-0.3); Eosinophils Percent Auto 2.8 % (0-4.4); Hemoglobin 8.4 g/dL (14.0-18.0); Immature Granulocyte Absolute 0.06 K/mm3 (0.00-0.031); Immature Granulocyte Percent A 0.6 % (0-0.5); Lymphocytes Absolute Auto 1.21 K/mm3 (0.9-3.2); Lymphocytes Percent Auto 12.2 % (18.3-44.2); Mean Corpuscular HGB Conc 32.3 g/dl (32-36); Mean Corpuscular Hemoglobin 29.4 pg (26-34); Mean Corpuscular Volume 90.9 fl (80-100); Mean Platelet Volume 9.6 fl (7.4-10.4); Monocytes Absolute Auto 0.7 K/mm3 (0.1-0.6); Monocytes Percent Auto 7.4 % (2.6-8.5); Neutrophils Absolute Auto 7.6 K/mm3 (1.3-6.7); Neutrophils Percent Auto 76.7 % (45.5-73.1); Platelet Count Result 398 k/mm3 (150-375); Red Blood Count 2.86 M/mm3 (4.6-6.20); Red Cell Distribution Width 12.5 % (11.5-14.5); White Blood Count 9.9 K/mm3 (4.5-10.0)
[2020-05-26 05:56] LABS: INR 1.8; Prothrombin Time 21.8 Seconds (11.1-14.7)
[2020-05-26] MEDS: BACLOFEN 5 MG TABLET PO ×3 (06:08→20:54)
[2020-05-26 06:19] LABS: Alanine Aminotransferase 34 U/L (4-50); Albumin Level 2.8 g/dL (3.5-5.1); Alkaline Phosphatase 153 U/L (38-126); Anion Gap 0 mmol/L (8-16); Aspartate Amino Transferase 47 U/L (17-59); Bilirubin,Total 0.6 mg/dL (0.2-1.3); Blood Urea Nitrogen 12 mg/dL (9-20); CRP 8.6 mg/dL (<1.0); Calcium 7.8 mg/dL (8.4-10.2); Carbon Dioxide 37 mmol/L (22-30); Chloride 98 mmol/L (98-107); Estimated CRCL calculation 91 ml/min; Estimated Glomerular Filt Rate > 60; Glucose 117 mg/dL (75-110); Magnesium 2.4 mg/dL (1.6-2.3); Phosphorus 3.9 mg/dL (2.5-4.5); Potassium 3.8 mmol/L (3.4-5.0); Sodium 135 mmol/L (137-145)
[2020-05-26 07:32] LABS: Glucose Point of Care 117 (65-105)
--- NOTE | 2020-05-26 09:24 | PM.PNORT ---
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 Dressing changed. Continued concern for viability of the 4th ray at this time. Patient understands potential need for further surgical intervention with further wound debridement vs. transmetatarsal amputation. Declines definitive treatment today. Patient desires to continue conservative treatment at this time and allow wound/4th ray to declare itself. Continue daily dressing changes with Dakin's soaked gauze, 4x4 and Kerlex/JOSSY wrap. Patient's niece will be assisting with dressing changes as an outpatient. Teaching to be performed prior to discharge by nursing staff, nursing aware. Walker with PWB/post op shoe on the HEEL of the right foot. Obtain walker for patient prior to discharge. Continue IV antibiotics per ID as an outpatient. Follow up with Dr. Levy. Dispo: Home with Home Health for IV infusion and wound care when medically cleared. Follow up in the [facility] wound clinic arranged for 06/03/20 at 8:00 AM. (2) Diabetic neuropathy associated with diabetes mellitus due to underlying condition: Qualifiers: Diabetes mellitus complication detail: diabetic polyneuropathy Qualified Code(s): E08.42 - Diabetes mellitus due to underlying condition with diabetic polyneuropathy Code(s): E08.40 - Diabetes mellitus due to underlying condition with diabetic neuropathy, unspecified Status: Acute Assessment and Plan: Appreciate care coordination assistance in ensuring appropriate follow up prior to discharge. (3) Diabetic ulcer of right foot associated with diabetes mellitus due to underlying condition: Qualifiers: Diabetic foot ulcer location: other Non-pressure ulcer stage: with necrosis of bone Qualified Code(s): E08.621 - Diabetes mellitus due to underlying condition with foot ulcer; 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 Code(s): E08.621 - Diabetes mellitus due to underlying condition with foot ulcer; L97.519 - Non-pressure chronic ulcer of other part of right foot with unspecified severity Status: Acute (4) Unavailability of primary care appointment: Status: Acute Assessment and Plan: Patient must have PCP appointment arranged prior to discharge. RN and Care Coordination aware. Concern for poorly controlled diabetes and lack of management as an outpatient in regards to wound healing. Patient aware. Subjective Subjective Date/Time Seen: 05/26/20 09:24 Patient sleeping, wakes to voice. No new complaints. Concerned about long-term plan for foot. Review of Systems Review of Systems: All systems reviewed & are unremarkable except as noted in HPI and below Constitutional: Constitutional: Reports no additional constitutional complaints, Denies chills and Denies weakness Cardiovascular: Cardiovascular: Denies chest pain Respiratory: Respiratory: Denies dyspnea Gastrointestinal: Gastrointestinal: Denies abdominal pain, Denies nausea and Denies vomiting Genitourinary: Genitourinary: Reports no additional male genitourinary complaints Musculoskeletal: Musculoskeletal: Reports as per HPI Exam Const: General: comfortable and no acute distress Resp: Effort & Inspection: normal respiratory effort Cardio: Rate: regular rate Rhythm: regular rhythm GI: Inspection: non-distended GI Palp: Yes Soft to palpation and No Tenderness to palpation present (GI) Skin: Wounds: wounds noted (Large wound right foot ) Neuro: Cognition (Neuro): normal cognition Extrem: Right lower extremity: foot (see below ) Details: motor-sensory exam Details: two point discrimination abnormal and light-touch abnormal; abnormal capillary refill, abnormal
[2020-05-26 10:07] VITALS: PULSE 70
[2020-05-26] MEDS: carvediloL 6.25 MG TABLET PO ×2 (10:07→20:54)
[2020-05-26] MEDS: MAGNESIUM OXIDE 400 MG TABLET PO ×2 (10:07→17:39)
[2020-05-26] MEDS: EUCERIN CREAM 120 GM JAR 1 APPLIC TOPICAL (10:08)
[2020-05-26] MEDS: ENOXAPARIN 40 MG/0.4 ML SYRINGE SUB-Q (10:08)
[2020-05-26] MEDS: FUROSEMIDE 20 MG TABLET PO (10:08)
[2020-05-26] MEDS: ASPIRIN 81 MG ENTERIC TABLET PO (10:08)
[2020-05-26] MEDS: lisinopriL 5 MG TABLET PO ×2 (10:08→20:54)
[2020-05-26] MEDS: SOD HYPOCHLORITE 1/4 STRENGTH 473 ML 1 APPLIC TOPICAL ×2 (10:09→20:54)
[2020-05-26] MEDS: INSULIN DETEMIR 100 UNITS/ML 10 UNITS SUB-Q ×2 (10:11→20:54)
[2020-05-26 12:16] LABS: Glucose Point of Care 105 (65-105)
--- NOTE | 2020-05-26 12:26 | PM.IMPN ---
Progress Note: A&P Assessment and Plan (1) Acute osteomyelitis of toe of right foot: Code(s): M86.171 - Other acute osteomyelitis, right ankle and foot Status: Acute Assessment and Plan: Patient most likely has had soft tissue damage for a while that has ultimately resulted in osteomyelitis and gangrene. Patient admitted on 05/20/2020 and underwent debridement of the right 3rd toe later that day. CTA BLE showing ulceration with exposure of right 3rd metatarsal head, osteomyelitis and scattered foci of gas along this digit and between 3rd and 4th metatarsal bones; can't exclude fasciitis. Right inguinal lymphadenopathy felt to be reactive; malignancy unlikely. 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 Poor sensation to the right foot which is chronic related to his diabetes Now with bacteremia with BCx growing Proteus vulgaris (1of2 bottles). WCx showing Bacteroids. Most likely bacteremia related to the foot infection. WBC normal and no fevers. Continue Primaxin monotherapy. Appreciate ID, Orthopedic and general surgery input. PICC line in place for usp IV abx. (2) Supratherapeutic INR: Code(s): R79.1 - Abnormal coagulation profile Status: Acute Assessment and Plan: Patient was on Coumadin due to apical thrombus. Echocardiogram from June showing a small calcified mass which could be a calcified chronic thrombus. INR 9.7. Elevated INR related to continued Coumadin use, infectious process and poor oral intake. No evidence of bleeding. Patient was transfused with FFP and given vitamin K on the day of admission. INR was better at 1.3 but higher today at 1.8. Echo showing stable calcified apical mural thrombus but nothing acute. No plans at this time to resume Coumadin per Cardiology. Lovenox for DVT prophylaxis. Add supplements. (3) Elevated troponin: Code(s): R77.8 - Other specified abnormalities of plasma proteins Status: Acute Assessment and Plan: Patient had elevated troponins on admission to 0.145. No complaints of chest pain. EKG showing atrial sensed paced rhythm. No hypoxia or tachycardia to suggest PE plus patient is anticoagulated. Echo showing EF 40-45% and Grade I diastolic dysfunction. Probably a type 2 RI related to infectious process. Appreciate Cardiology input (4) Acute hyponatremia: Code(s): E87.1 - Hypo-osmolality and hyponatremia Status: Acute Assessment and Plan: Sodium 122. Urine sodium less than 5 to suggest dehydration. Patient admits he has not been eating the past few days and has continued his Lasix and spironolactone. We held his diuretics and started IV fluids. Na climbed to 130 so IV fluids stopped on 05/21/20. Na stable now. Lasix resumed at lower dose. Follow (5) Systolic and diastolic CHF, chronic: Code(s): I50.42 - Chronic combined systolic (congestive) and diastolic (congestive) heart failure Status: Acute Assessment and Plan: In June of 2019 showing EF of 20-25%, diastolic dysfunction, and [id number] mitral regurgitation. Patient clinically appears euvolemic and probably dehydrated. Repeat Echo showing EF 40-45% and Grade I diastolic dysfunction. Continue Coreg, lisinopril and Lasix. Cardiology following. Watch BP (6) Diabetic ulcer of right foot associated with diabetes mellitus due to underlying condition: Qualifiers: Diabetic foot ulcer location: other Non-pressure ulcer stage: with necrosis of bone Qualified Code(s): E08.621 - Diabetes mellitus due to underlying condition with foot ulcer; 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 Code(s): E08.621 - Diabetes mellitus due to underlying condition with foot ulcer; L97.519 - Non-pressure chronic ulcer of other part of right foot with unspecified severity Status: Acute Asses
--- NOTE | 2020-05-26 13:28 | WPDINFPN2 ---
Progress Note: A&P Assessment and Plan (1) Acute osteomyelitis of toe of right foot: Code(s): M86.171 - Other acute osteomyelitis, right ankle and foot Status: Acute Assessment and Plan: 1. Acute OM of R foot with resulting bacteremia and infection, Proteus isolated. CRP up minimally 2. Poorly controlled DM 3. PCN allergy vs intolerance, he is tolerating the carbapenem REC Imipenem through 07/01, PICC in place. ok discharge planning, he will stay with his niece in [place] Subjective Date/time seen: 05/26/20 13:28 Interval history: foot better. Appetite recovering with better food on tray Exam Narrative: Exam Narrative: afebrile Const: General: no acute distress Resp: Effort & Inspection: normal respiratory effort Auscultation: clear to auscultation bilaterally Cardio: Rate: regular rate Rhythm: regular rhythm Heart sounds: no murmurs GI: Inspection: non-distended GI Palp: Yes Soft to palpation and No Tenderness to palpation present (GI) Skin: General skin exam: normal color and no rashes or lesions noted Other: erythema over R matias more intense. Foot on left is cool but normal color, R foot is warm, dressing in place Objective Data Vital Signs Vital Signs: Vital Signs - 24 hr 05/25/20 15:05 05/25/20 20:44 05/25/20 20:53 Temperature 36.2 C L 36.7 C Pulse Rate 81 85 74 Respiratory Rate 18 12 Blood Pressure 99/44 L 123/59 L Pulse Oximetry 95 100 05/26/20 05:00 05/26/20 10:07 Temperature 36.2 C L Pulse Rate 70 70 Respiratory Rate 14 Blood Pressure 122/55 L Pulse Oximetry 98 Intake/Output Intake/Output: Intake & Output 05/23/20 05/24/20 05/25/20 05/26/20 23:59 23:59 23:59 23:59 Intake Total 2240 2290 1000 300 Output Total 2625 3425 650 2300 Balance -385 113 350 -2000 Meds/Results Medications: Active Medications Generic Name Dose Route Start Last Admin Trade Name Freq PRN Reason Stop Dose Admin Acetaminophen 650 mg 05/21/20 20:54 05/21/20 21:18 Acetaminophen 325 Mg Tablet PO 650 mg Q4H PRN Administration Headache Al Hydrox/Mg Hydrox/Simethicone 30 ml 05/21/20 08:26 Mag Hydrox/Al Hydrox/Simeth 30 Ml Udc PO Q6H PRN Indigestion Aspirin 81 mg 05/22/20 09:00 05/26/20 10:08 Aspirin 81 Mg Enteric Tablet PO 81 mg QAM CRISTI Administration Atorvastatin Calcium 20 mg 05/20/20 21:00 05/25/20 20:53 Atorvastatin 20 Mg Tablet PO 20 mg HS CRISTI Administration Baclofen 5 mg 05/25/20 22:00 05/26/20 06:08 Baclofen 5 Mg Tablet PO 5 mg Q8HR CRISTI Administration Canagliflozin 100 mg 05/27/20 08:00 Canagliflozin 100 Mg Tablet PO DAILY@0800 CRISTI Carvedilol 6.25 mg 05/20/20 21:00 05/26/20 10:07 Carvedilol 6.25 Mg Tablet PO 6.25 mg Q12H CRISTI Administration Dextrose 12.5 gm 05/20/20 19:04 Dextrose 50% 25 Gm/50 Ml Syringe IV PUSH PRN PRN Hypoglycemia Protocol Diazepam 5 mg 05/21/20 08:25 05/21/20 16:34 Diazepam (*Crx) 5 Mg Tablet PO 5 mg Q6H PRN Administration Hiccups Enoxaparin Sodium 40 mg 05/23/20 09:00 05/26/20 10:08 Enoxaparin 40 Mg/0.4 Ml Syringe SUB-Q 40 mg DAILY CRISTI Administration Furosemide 20 mg 05/24/20 09:00 05/26/20 10:08 Furosemide 20 Mg Tablet PO 20 mg DAILY CRISTI Administration Glucagon 1 mg 05/20/20 19:04 Glucagon For Inj 1 Mg Vial IM PRN PRN Hypoglycemia Protocol Glucose 15 gm 05/20/20 19:04 Glucose Oral Gel 15 Gm Of Glucse In 37.5 Gm Tube PO PRN PRN Hypoglycemia Protocol Imipenem/Cilastatin Sodium 500 100 mls @ 300 mls/hr 05/20/20 19:00 05/26/20 12:25 mg/ Dextrose IVPB 300 mls/hr Q6HR CRISTI Administration Dextrose 1,000 mls @ 100 mls/hr 05/20/20 19:04 Dextrose 5% 1,000 Ml IVPB PRN PRN Hypoglycemia Protocol Insulin Aspart 2 - 5 units 05/21/20 08:00 05/26/20 12:23 Insulin Aspart (*Bkc) 100 Units/Ml SUB-Q Not Given TIDWM CRISTI
[2020-05-26 14:28] VITALS: BP 115/65; PULSE 94; RESP 16; TEMP 36.5; O2SAT 100
[2020-05-26 16:52] LABS: Troponin I 0.022 ng/mL (0.000-0.034)
[2020-05-26 20:00] VITALS: BP 118/59; PULSE 89; RESP 18; TEMP 37.1; O2SAT 100
[2020-05-26 20:54] VITALS: PULSE 76
[2020-05-26] MEDS: ATORVASTATIN 20 MG TABLET PO (20:54)
[2020-05-26 21:23] LABS: Glucose Point of Care 216 (65-105)
[2020-05-27 05:00] VITALS: BP 122/60; PULSE 75; RESP 18; TEMP 36.4; O2SAT 100
[2020-05-27 05:57] LABS: Basophils Percent Auto 0.4 % (0.2-1.2); Eosinophils Absolute Auto 0.2 K/mm3 (0-0.3); Eosinophils Percent Auto 2.3 % (0-4.4); Hematocrit 26.9 % (42.0-52.0); Hemoglobin 8.7 g/dL (14.0-18.0); Immature Granulocyte Absolute 0.06 K/mm3 (0.00-0.031); Immature Granulocyte Percent A 0.6 % (0-0.5); Lymphocytes Absolute Auto 1.21 K/mm3 (0.9-3.2); Lymphocytes Percent Auto 11.5 % (18.3-44.2); Mean Corpuscular HGB Conc 32.3 g/dl (32-36); Mean Corpuscular Hemoglobin 29.4 pg (26-34); Mean Corpuscular Volume 90.9 fl (80-100); Mean Platelet Volume 9.6 fl (7.4-10.4); Monocytes Absolute Auto 0.7 K/mm3 (0.1-0.6); Monocytes Percent Auto 6.7 % (2.6-8.5); Neutrophils Absolute Auto 8.3 K/mm3 (1.3-6.7); Neutrophils Percent Auto 78.5 % (45.5-73.1); Platelet Count Result 448 k/mm3 (150-375); Red Blood Count 2.96 M/mm3 (4.6-6.20); Red Cell Distribution Width 12.2 % (11.5-14.5); White Blood Count 10.5 K/mm3 (4.5-10.0)
[2020-05-27 06:08] LABS: Anion Gap 1 mmol/L (8-16); Blood Urea Nitrogen 17 mg/dL (9-20); Calcium 8.2 mg/dL (8.4-10.2); Carbon Dioxide 36 mmol/L (22-30); Chloride 97 mmol/L (98-107); Estimated CRCL calculation 105 ml/min; Estimated Glomerular Filt Rate > 60; Glucose 187 mg/dL (75-110); Potassium 4.5 mmol/L (3.4-5.0); Sodium 134 mmol/L (137-145)
[2020-05-27] MEDS: BACLOFEN 5 MG TABLET PO ×2 (06:17→13:00)
[2020-05-27] MEDS: CENTRAL LINE FLUSH 20 ML IV PUSH (06:17)
[2020-05-27] MEDS: CENTRAL LINE FLUSH 10 ML IV PUSH ×3 (06:17→21:11)
[2020-05-27 06:32] LABS: Iron 37 ug/dL (49-181)
[2020-05-27 06:42] LABS: Percent Iron Saturation 16 % (20-50)
[2020-05-27 07:52] LABS: Glucose Point of Care 170 (65-105)
[2020-05-27 08:33] VITALS: PULSE 75
[2020-05-27] MEDS: carvediloL 6.25 MG TABLET PO ×2 (08:33→21:11)
[2020-05-27] MEDS: FUROSEMIDE 20 MG TABLET PO (08:33)
[2020-05-27] MEDS: MAGNESIUM OXIDE 400 MG TABLET PO ×2 (08:33→18:02)
[2020-05-27] MEDS: ASPIRIN 81 MG ENTERIC TABLET PO (08:34)
[2020-05-27] MEDS: ENOXAPARIN 40 MG/0.4 ML SYRINGE SUB-Q (08:34)
[2020-05-27] MEDS: lisinopriL 5 MG TABLET PO (08:34)
[2020-05-27] MEDS: CANAGLIFLOZIN 100 MG TABLET PO (08:34)
[2020-05-27] MEDS: INSULIN DETEMIR 100 UNITS/ML 10 UNITS SUB-Q ×2 (08:36→21:11)
[2020-05-27] MEDS: EUCERIN CREAM 120 GM JAR 1 APPLIC TOPICAL (10:43)
[2020-05-27] MEDS: SOD HYPOCHLORITE 1/4 STRENGTH 473 ML 1 APPLIC TOPICAL (10:43)
[2020-05-27] MEDS: ONDANSETRON INJ 4 MG/2 ML VIAL IV PUSH (10:44)
--- NOTE | 2020-05-27 11:04 | PM.PNORT ---
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 Dressing changed. Continued concern for viability of the 4th ray at this time, mild improvement in appearance. Patient understands potential need for further surgical intervention with further wound debridement vs. transmetatarsal amputation. Declines definitive treatment today. Patient desires to continue conservative treatment at this time and allow wound/4th ray to declare itself. Continue daily dressing changes. Transition to silver gel to wound bed depth and then 4x4 and Kerlex/JOSSY wrap. Dakin's discontinued. Walker with PWB/post op shoe on the HEEL of the right foot. Obtain walker for patient prior to discharge. Continue IV antibiotics per ID. Follow up with Dr. Levy. Patient with concerns regarding outpatient care and anxious about IV antibiotics/wound care. Unsure he will have proper assistance. Dispo: SNF vs Rehab Follow up in the [facility] wound clinic arranged for 06/03/20 at 8:00 AM- may changed depending on d/c plan. (2) Diabetic neuropathy associated with diabetes mellitus due to underlying condition: Qualifiers: Diabetes mellitus complication detail: diabetic polyneuropathy Qualified Code(s): E08.42 - Diabetes mellitus due to underlying condition with diabetic polyneuropathy Code(s): E08.40 - Diabetes mellitus due to underlying condition with diabetic neuropathy, unspecified Status: Acute Assessment and Plan: Appreciate care coordination assistance in ensuring appropriate follow up prior to discharge. (3) Diabetic ulcer of right foot associated with diabetes mellitus due to underlying condition: Qualifiers: Diabetic foot ulcer location: other Non-pressure ulcer stage: with necrosis of bone Qualified Code(s): E08.621 - Diabetes mellitus due to underlying condition with foot ulcer; 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 Code(s): E08.621 - Diabetes mellitus due to underlying condition with foot ulcer; L97.519 - Non-pressure chronic ulcer of other part of right foot with unspecified severity Status: Acute (4) Unavailability of primary care appointment: Status: Acute Assessment and Plan: Patient must have PCP appointment arranged prior to discharge. RN and Care Coordination aware, discussed again today. Concern for poorly controlled diabetes and lack of management as an outpatient in regards to wound healing. Patient aware. (5) Nausea: Code(s): R11.0 - Nausea Status: Acute Assessment and Plan: Zofran ordered Subjective Subjective Date/Time Seen: 05/27/20 11:04 Patient with complaints of nausea this AM. No complaints of pain. Concerned about ability to do IV antibiotics at home as well as dressing changes. Feels he will need more assistance. Review of Systems Review of Systems: All systems reviewed & are unremarkable except as noted in HPI and below Constitutional: Constitutional: Reports no additional constitutional complaints, Denies chills and Denies weakness Cardiovascular: Cardiovascular: Denies chest pain Respiratory: Respiratory: Denies dyspnea Gastrointestinal: Gastrointestinal: Denies abdominal pain, Denies nausea and Denies vomiting Genitourinary: Genitourinary: Reports no additional male genitourinary complaints Musculoskeletal: Musculoskeletal: Reports as per HPI Exam Const: General: comfortable and no acute distress Resp: Effort & Inspection: normal respiratory effort Cardio: Rate: regular rate Rhythm: regular rhythm GI: Inspection: non-distended GI Palp: Yes Soft to palpation and No Tenderness to palpation present (GI) Skin: Wounds: wounds noted (Large wound r
--- NOTE | 2020-05-27 11:29 | PCPTNOTE ---
Attempted PT evaluation this date, pt declined stating he was tired and wanted to rest. Will attempt at a later date/time.
--- NOTE | 2020-05-27 11:34 | PM.IMPN ---
Progress Note: A&P Assessment and Plan (1) Acute osteomyelitis of toe of right foot: Code(s): M86.171 - Other acute osteomyelitis, right ankle and foot Status: Acute Assessment and Plan: Acute osteomyelitis and gangrene status post debridement of the right 3rd toe orthopedics following. CTA BLE showing ulceration with exposure of right 3rd metatarsal head, osteomyelitis and scattered foci of gas along this digit and between 3rd and 4th metatarsal bones; can't exclude fasciitis. Right inguinal lymphadenopathy felt to be reactive; malignancy unlikely. 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 Continue antibiotics Pending placement Follow-up with orthopedic may need further debridement and surgery as outpatient. (2) Supratherapeutic INR: Code(s): R79.1 - Abnormal coagulation profile Status: Acute Assessment and Plan: Patient has calcified apical thrombus supratherapeutic INR on presentation status post FFP resolved no plan to resume oral anticoagulation per Cardiology patient also has chronic anemia follow-up with PCP. (3) Elevated troponin: Code(s): R77.8 - Other specified abnormalities of plasma proteins Status: Acute Assessment and Plan: Most likely NSTEMI type 2 secondary to demand ischemia secondary to osteomyelitis (4) Acute hyponatremia: Code(s): E87.1 - Hypo-osmolality and hyponatremia Status: Acute Assessment and Plan: Probably related to dehydration and diuretics was treated with IV fluid improved (5) Systolic and diastolic CHF, chronic: Code(s): I50.42 - Chronic combined systolic (congestive) and diastolic (congestive) heart failure Status: Acute Assessment and Plan: repeat echo shows ejection fraction of 45% avoid fluid overload (6) Diabetic ulcer of right foot associated with diabetes mellitus due to underlying condition: Qualifiers: Diabetic foot ulcer location: other Non-pressure ulcer stage: with necrosis of bone Qualified Code(s): E08.621 - Diabetes mellitus due to underlying condition with foot ulcer; 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 Code(s): E08.621 - Diabetes mellitus due to underlying condition with foot ulcer; L97.519 - Non-pressure chronic ulcer of other part of right foot with unspecified severity Status: Acute Assessment and Plan: Patient has developed diabetic ulcer related to his increased walking and possibly poor footwear. Suspect his neuropathy contributed to this as well. This infection probably has been more longstanding then he thinks given the fact that he now has osteomyelitis. Treatment as above. (7) Diabetic neuropathy associated with diabetes mellitus due to underlying condition: Qualifiers: Diabetes mellitus complication detail: diabetic polyneuropathy Qualified Code(s): E08.42 - Diabetes mellitus due to underlying condition with diabetic polyneuropathy Code(s): E08.40 - Diabetes mellitus due to underlying condition with diabetic neuropathy, unspecified Status: Acute Assessment and Plan: Diabetes control pain control. (8) Diabetes mellitus: Code(s): E11.9 - Type 2 diabetes mellitus without complications Status: Acute Assessment and Plan: Continue current treatment (9) Peripheral arterial disease: Code(s): I73.9 - Peripheral vascular disease, unspecified Status: Acute Assessment and Plan: Arterial Doppler showing right THOMAS could not be measured due to inability to cuff-occlude the arteries, the right great TBI is 0.78. Arterial Doppler waveforms are at least triphasic at the ankle. The left THOMAS could not be measured due to inability to cuff-occlude the arteries. The left TBI is 0.84. Arterial Doppler waveforms are biphasic at the ankle. Lower Extremi
--- NOTE | 2020-05-27 11:40 | PCNFU ---
Nutrition Follow-Up Complete: Altered nutrition related labs related to diabetes mellitus as evidenced by HgbA1C of 12.9%. Goal: Patient to consume 75% of meals on diabetic, low sodium diet. Pt current nutrition is Diabetic Consistent carbohydrate diet with Glucerna supplement BID. Last recorded weight is 76.9 kg. Bowel Motility: + BM 05/26 Labs Reviewed: Hgb 8.7, Hct 26.9, Na 134, Cr .60, Glu 187 Meds Noted: Lipitor, Mylanta, Coreg, Lovenox, Valium, Novolog, Latex Tablet, Levemir, Zofran, Magnesium Oxide, Imipenem Additional Notes: Spoke with patient. Patient reports enjoying his Glucerna shake BID providing an additional 220 calories and 10 grams of protein. Patient reported having little to no appetite due to disliking hospital food, but thinks if the food was more appealing he would consume more. Follow up in 5 days.
--- NOTE | 2020-05-27 12:24 | PCNSR ---
On 05/27/20, the student,Juliet Leon, provided care and completed [facility] documentation on this patient. I have reviewed the student's documentation and agree with the findings.
[2020-05-27 12:33] LABS: Glucose Point of Care 177 (65-105)
--- NOTE | 2020-05-27 13:07 | CONS_ITS ---
DATE OF CONSULTATION: REASON FOR CONSULTATION: Osteomyelitis, acute of the right foot. HISTORY OF PRESENT ILLNESS: A 69-year-old male with poorly controlled diabetes. He was taken to the operating room yesterday by Dr. 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 Findings included gross purulence in the 3rd intermetatarsal space, also soft tissue infection surrounding. He recently was admitted to the hospital on May 20 with 2 days of dizziness and fatigue, also an ulcer over the plantar aspect of the right foot of 3 days duration. He has been nonadherent with his medical care since his last hemoglobin A1c a year ago. While here, the patient also was taken to the operating room on May [address] Ewing, and purulence was encountered as well in the area of the right 3rd toe, gangrene was also noted. The toe itself was gangrenous. The patient has been on imipenem and vancomycin since arrival. He has had positive blood cultures. Consult requested. I was not notified of the consult until an hour and a half ago. He has had no foot pain. No fever, chills, or sweats. No recent antibiotics. No trauma that he is aware of. ALLERGIES: PENICILLIN, CAUSED A VAGUE NERVE SENSITIVITY TO HIS FINGERS. HE HAS HAD NO PROBLEMS WITH THE IMIPENEM. PRESENT MEDICATIONS: As above. HABITS: No tobacco. No alcohol. PAST MEDICAL HISTORY: AICD placement last year for complete heart block, shoulder fracture, peripheral vascular disease, PAT and NSVT, nonischemic cardiomyopathy, heart failure, apical mural thrombosis. REVIEW OF SYSTEMS: 14-point review otherwise negative. FAMILY HISTORY: Cancer and MO. SOCIAL HISTORY: He is , works. Lives locally and plans on staying with his niece in [place] after this discharge. PHYSICAL EXAMINATION: GENERAL: Chronically ill-appearing male older than his actual age. No acute distress. VITAL SIGNS: T-max 37.9, 133/45, 74, 12, 97% on room air. SKIN: No generalized rashes. No erythroderma. EENT: The conjunctivae are normal. The pupils are equal, round, reactive to light. The oropharynx, oral mucosa normal. NECK: No masses or thyromegaly. LUNGS: Clear to auscultation and percussion. CARDIAC: Regular rate and rhythm. No murmur or gallop. ABDOMEN: Nontender, soft. No organomegaly. No masses. EXTREMITIES: His right foot is dressed. He has some erythema over the mid matias on the right. He has stasis dermatitis changes over both mid shins as well. LABORATORY DATA: Blood cultures from admission 1 out of 2 sets, Proteus vulgaris, susceptibility pending. Wound culture from the emergency room, superficial swab, moderate white cells, many mixed bacterial chaparrita. The patient's white blood cell count 16.3 on arrival, 16.9 today; hemoglobin 9; platelets are 362. Differential is unremarkable. He has hyponatremia though being corrected up to 134, low potassium, low chloride, high CO2. BUN and creatinine normal. Glucose originally 334, now 200. His A1c 12.9%. Alkaline phosphatase 173. CRP 16.4, albumin 2.8. Urinalysis, no evidence of infection. Hepatitis panel from 08/06/2019 showed a reactive hepatitis C. RADIOLOGY: Lower extremity CT angio showed delayed flow without proximal stenosis at the popliteal, nondiagnostic otherwise. He had right foot 3-vessel runoff, 3rd metatarsal base subacute stress fracture, inguinal adenopathy, gas in the area between 3rd and 4th metatarsal bones. THOMAS, no significant arterial occlusive disease. Foot x-ray on admission, 3rd proximal phalanx erosion, dislocation of 3rd MTP, polyarticular osteoarthritis. Chest x-ray, cardiomegaly. ASSESSMENT: 1. Diabetic foot infection with acute osteomyelitis of the right 3r
[2020-05-27 14:00] VITALS: BP 100/57; PULSE 81; RESP 16; TEMP 36.2; O2SAT 100
--- NOTE | 2020-05-27 15:52 | PC.NURSE ---
1, Sheba Morales clinical instructor for [employer], have reviewed and approve student nurse - José Miguel Dunn's charting for the today
[2020-05-27 16:50] LABS: Glucose Point of Care 162 (65-105)
[2020-05-27 20:03] VITALS: BP 98/49; PULSE 89; RESP 18; TEMP 36.6; O2SAT 99
[2020-05-27 21:11] VITALS: PULSE 88
[2020-05-27] MEDS: ATORVASTATIN 20 MG TABLET PO (21:11)
[2020-05-27 21:30] LABS: Glucose Point of Care 141 (65-105)
[2020-05-27 22:50] LABS: SARS-CoV-2 RNA PCR Negative
--- NOTE | 2020-05-28 01:40 | PC.NURSE ---
Pt had a bowel movement and missed the specimen container
[2020-05-28 04:43] VITALS: BP 100/56; PULSE 75; RESP 17; TEMP 36.6; O2SAT 100
[2020-05-28] MEDS: CENTRAL LINE FLUSH 10 ML IV PUSH ×2 (05:48→16:09)
[2020-05-28] MEDS: BACLOFEN 5 MG TABLET PO ×2 (05:48→16:00)
[2020-05-28 07:56] LABS: Glucose Point of Care 78 (65-105)
[2020-05-28 08:15] VITALS: BP 128/62; PULSE 93; RESP 14; TEMP 36.1; O2SAT 100
[2020-05-28] MEDS: lisinopriL 5 MG TABLET PO (09:11)
[2020-05-28 09:12] VITALS: PULSE 93
[2020-05-28] MEDS: MAGNESIUM OXIDE 400 MG TABLET PO ×2 (09:12→16:00)
[2020-05-28] MEDS: FUROSEMIDE 20 MG TABLET PO (09:12)
[2020-05-28] MEDS: carvediloL 6.25 MG TABLET PO (09:12)
[2020-05-28] MEDS: ASPIRIN 81 MG ENTERIC TABLET PO (09:12)
[2020-05-28] MEDS: SILVERGEL (ELTA) 45 ML 1 APPLIC TOPICAL (09:13)
[2020-05-28] MEDS: EUCERIN CREAM 120 GM JAR 1 APPLIC TOPICAL (09:13)
[2020-05-28] MEDS: ENOXAPARIN 40 MG/0.4 ML SYRINGE SUB-Q (09:13)
[2020-05-28] MEDS: diazePAM (*CRX) 5 MG TABLET PO (10:15)
[2020-05-28 10:57] LABS: Glucose Point of Care 156 (65-105)
[2020-05-28] MEDS: INSULIN DETEMIR 100 UNITS/ML 10 UNITS SUB-Q (11:57)
--- NOTE | 2020-05-28 13:16 | WPDINFPN2 ---
Progress Note: A&P Assessment and Plan (1) Acute osteomyelitis of toe of right foot: Code(s): M86.171 - Other acute osteomyelitis, right ankle and foot Status: Acute Assessment and Plan: 1. Acute OM of R foot with resulting bacteremia and infection, Proteus and B fragilis isolated. CRP up minimally. The anaerobe in the wound is well treated with the present imipenem. 2. Poorly controlled DM 3. PCN allergy vs intolerance, he is tolerating the carbapenem REC Imipenem through 07/01, PICC in place. SNF now anticipated instead of home IV therapy. Subjective Date/time seen: 05/28/20 13:16 Interval history: no pain no abd discomfort Exam Narrative: Exam Narrative: afebrile Const: General: no acute distress Neck: Neck: no JVD Resp: Effort & Inspection: normal respiratory effort Auscultation: clear to auscultation bilaterally Cardio: Rate: regular rate Rhythm: regular rhythm Heart sounds: no murmurs GI: Inspection: non-distended GI Palp: Yes Soft to palpation and No Tenderness to palpation present (GI) Skin: General skin exam: normal color and no rashes or lesions noted Extrem: Other: foot is dressed, no proximal erythema nor tenderness nor warmth Objective Data Vital Signs Vital Signs: Vital Signs - 24 hr 05/27/20 14:00 05/27/20 20:03 05/27/20 21:11 Temperature 36.2 C L 36.6 C Pulse Rate 81 89 88 Respiratory Rate 16 18 Blood Pressure 100/57 L 98/49 L Pulse Oximetry 100 99 05/28/20 04:43 05/28/20 08:15 05/28/20 09:12 Temperature 36.6 C 36.1 C L Pulse Rate 75 93 93 Respiratory Rate 17 14 Blood Pressure 100/56 L 128/62 Pulse Oximetry 100 100 Intake/Output Intake/Output: Intake & Output 05/25/20 05/26/20 05/27/20 05/28/20 23:59 23:59 23:59 23:59 Intake Total 1000 2180 1870 540 Output Total 650 3000 3700 900 Balance 350 -820 -1830 -360 Meds/Results Medications: Active Medications Generic Name Dose Route Start Last Admin Trade Name Freq PRN Reason Stop Dose Admin Acetaminophen 650 mg 05/21/20 20:54 05/21/20 21:18 Acetaminophen 325 Mg Tablet PO 650 mg Q4H PRN Administration Headache Al Hydrox/Mg Hydrox/Simethicone 30 ml 05/21/20 08:26 Mag Hydrox/Al Hydrox/Simeth 30 Ml Udc PO Q6H PRN Indigestion Aspirin 81 mg 05/22/20 09:00 05/28/20 09:12 Aspirin 81 Mg Enteric Tablet PO 81 mg QAM CRISTI Administration Atorvastatin Calcium 20 mg 05/20/20 21:00 05/27/20 21:11 Atorvastatin 20 Mg Tablet PO 20 mg HS CRISTI Administration Baclofen 5 mg 05/25/20 22:00 05/28/20 05:48 Baclofen 5 Mg Tablet PO 5 mg Q8HR CRISTI Administration Canagliflozin 100 mg 05/27/20 08:00 05/28/20 08:24 Canagliflozin 100 Mg Tablet PO Not Given DAILY@0800 CRISTI Carvedilol 6.25 mg 05/20/20 21:00 05/28/20 09:12 Carvedilol 6.25 Mg Tablet PO 6.25 mg Q12H CRISTI Administration Dextrose 12.5 gm 05/20/20 19:04 Dextrose 50% 25 Gm/50 Ml Syringe IV PUSH PRN PRN Hypoglycemia Protocol Diazepam 5 mg 05/21/20 08:25 05/28/20 10:15 Diazepam (*Crx) 5 Mg Tablet PO 5 mg Q6H PRN Administration Hiccups Enoxaparin Sodium 40 mg 05/23/20 09:00 05/28/20 09:13 Enoxaparin 40 Mg/0.4 Ml Syringe SUB-Q 40 mg DAILY CRISTI Administration Furosemide 20 mg 05/24/20 09:00 05/28/20 09:12 Furosemide 20 Mg Tablet PO 20 mg DAILY CRISTI Administration Glucagon 1 mg 05/20/20 19:04 Glucagon For Inj 1 Mg Vial IM PRN PRN Hypoglycemia Protocol Glucose 15 gm 05/20/20 19:04 Glucose Oral Gel 15 Gm Of Glucse In 37.5 Gm Tube PO PRN PRN Hypoglycemia Protocol Imipenem/Cilastatin Sodium 500 100 mls @ 300 mls/hr 05/20/20 19:00 05/28/20 12:05 mg/ Dextrose IVPB 300 mls/hr Q6HR CRISTI Administration Dextrose 1,000 mls @ 100 mls/hr 05/20/20 19:04 Dextrose 5% 1,000 Ml IVPB PRN PRN Hypoglycemia Protocol Insulin Aspart 2 - 5 units 05/21/20 08:00
[2020-05-28 13:49] VITALS: BP 106/56; PULSE 73; RESP 14; TEMP 36.2; O2SAT 100
--- NOTE | 2020-05-28 13:56 | PC.NURSE ---
On 05/28/20, the student, [ Beatriz Monaco], provided care and completed [employer] documentation on this patient. I have reviewed the student's documentation and agree with the findings.
[2020-05-28 14:25] LABS: IFOB Positive Control Positive; Immunochemical Fecal Occult Bl Negative (N)
--- NOTE | 2020-05-28 14:38 | PM.DS ---
DS: Admitting Diagnosis Admitting Diagnosis Admitting Diagnosis: Osteomyelitis DS: Discharge Diagnosis Discharge Diagnosis (1) Acute osteomyelitis of toe of right foot: Code(s): M86.171 - Other acute osteomyelitis, right ankle and foot Status: Acute (2) Supratherapeutic INR: Code(s): R79.1 - Abnormal coagulation profile Status: Acute Assessment and Plan: Patient has calcified apical thrombus supratherapeutic INR on presentation status post FFP resolved no plan to resume oral anticoagulation per Cardiology patient also has chronic anemia follow-up with PCP. (3) Elevated troponin: Code(s): R77.8 - Other specified abnormalities of plasma proteins Status: Acute Assessment and Plan: Most likely NSTEMI type 2 secondary to demand ischemia secondary to osteomyelitis (4) Acute hyponatremia: Code(s): E87.1 - Hypo-osmolality and hyponatremia Status: Acute Assessment and Plan: Probably related to dehydration and diuretics was treated with IV fluid improved (5) Systolic and diastolic CHF, chronic: Code(s): I50.42 - Chronic combined systolic (congestive) and diastolic (congestive) heart failure Status: Acute Assessment and Plan: repeat echo shows ejection fraction of 45% avoid fluid overload (6) Diabetic ulcer of right foot associated with diabetes mellitus due to underlying condition: Qualifiers: Diabetic foot ulcer location: other Non-pressure ulcer stage: with necrosis of bone Qualified Code(s): E08.621 - Diabetes mellitus due to underlying condition with foot ulcer; 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 Code(s): E08.621 - Diabetes mellitus due to underlying condition with foot ulcer; L97.519 - Non-pressure chronic ulcer of other part of right foot with unspecified severity Status: Acute Assessment and Plan: Patient has developed diabetic ulcer related to his increased walking and possibly poor footwear. Suspect his neuropathy contributed to this as well. This infection probably has been more longstanding then he thinks given the fact that he now has osteomyelitis. Treatment as above. (7) Diabetic neuropathy associated with diabetes mellitus due to underlying condition: Qualifiers: Diabetes mellitus complication detail: diabetic polyneuropathy Qualified Code(s): E08.42 - Diabetes mellitus due to underlying condition with diabetic polyneuropathy Code(s): E08.40 - Diabetes mellitus due to underlying condition with diabetic neuropathy, unspecified Status: Acute Assessment and Plan: Diabetes control pain control. (8) Diabetes mellitus: Code(s): E11.9 - Type 2 diabetes mellitus without complications Status: Acute Assessment and Plan: Continue current treatment (9) Peripheral arterial disease: Code(s): I73.9 - Peripheral vascular disease, unspecified Status: Acute Assessment and Plan: Arterial Doppler showing right THOMAS could not be measured due to inability to cuff-occlude the arteries, the right great TBI is 0.78. Arterial Doppler waveforms are at least triphasic at the ankle. The left THOMAS could not be measured due to inability to cuff-occlude the arteries. The left TBI is 0.84. Arterial Doppler waveforms are biphasic at the ankle. Lower Extremity CTA performed showing delayed flow to left calf without proximal stenosis. Delayed flow at popliteal, with trifurcation nonopacified at time of imaging; these vessels could be occluded. Right foot 3 vessel runoff. Continue Lipitor and ASA. (10) Presence of combination internal cardiac defibrillator (ICD) and pacemaker: Code(s): Z95.810 - Presence of automatic (implantable) cardiac defibrillator Status: Acute Assessment and Plan: Patient presented with syncope and bradycardia in July 2019. He had a temporary pacer
--- NOTE | 2020-05-28 17:50 | PC.NURSE ---
Pt not wanting to use the restaurant. [place] pulled, educated patient on the need to be able to void. Patient does not want to try at this time.
== END 2020-05-28 18:45 | DRG 239 ==
LOC: ANHED 09:30 → ANHIMU 15:07 → ANH3MED 05-28 14:28 → ANHIMU 06-02 12:33
PROVIDERS: Internal Medicine; Orthopaedic Surgery; Physician Assistant; Admitting Provider Internal Medicine; Emergency Provider Emergency Medicine; Visit Provider Internal Medicine
PROC: 0Y6M0ZC Detachment at Right Foot, Partial 3rd Ray, Open Approach (ICD-10-PCS; principal; 2020-05-21 09:30)
DX: E11.52 Type 2 diabetes mellitus with diabetic peripheral angiopathy with gangrene (principal); I21.A1 Myocardial infarction type 2; I96 Gangrene, not elsewhere classified; M86.171 Other acute osteomyelitis, right ankle and foot; E87.1 Hypo-osmolality and hyponatremia; I50.42 Chronic combined systolic (congestive) and diastolic (congestive) heart failure; R78.81 Bacteremia; I42.8 Other cardiomyopathies; I47.1 Supraventricular tachycardia; E11.69 Type 2 diabetes mellitus with other specified complication; Z20.822 Contact with and (suspected) exposure to COVID-19; D64.9 Anemia, unspecified; R79.1 Abnormal coagulation profile; Z79.01 Long term (current) use of anticoagulants; T45.515A Adverse effect of anticoagulants, initial encounter; E08.621 Diabetes mellitus due to underlying condition with foot ulcer; L97.514 Non-pressure chronic ulcer of other part of right foot with necrosis of bone; E11.42 Type 2 diabetes mellitus with diabetic polyneuropathy; I73.9 Peripheral vascular disease, unspecified; Z95.810 Presence of automatic (implantable) cardiac defibrillator; R06.6 Hiccough; B96.4 Proteus (mirabilis) (morganii) as the cause of diseases classified elsewhere; E11.65 Type 2 diabetes mellitus with hyperglycemia; I51.3 Intracardiac thrombosis, not elsewhere classified
CPT/HCPCS: 36415; 36430; 36569; 71045; 73630; 73706; 80048; 80053; 80069; 80202; 81001; 82010; 82274; 82607; 82728; 82746; 82948; 83036; 83540; 83550; 83605; 83735; 83935; 84100; 84295; 84300; 84484; 85025; 85610; 85652; 85730; 86140; 86900; 86901; 87040; 87070; 87075; 87076; 87077; 87186; 87205; 88305; 88311; 93005; 93306; 93922; 96360; 96361; 97110; 97116; 97161; 97165; 99285; A9270; C1751; C9803; J0743; J1650; J1815; J2001; J2250; J2405; J2704; J3010; J3370; J7030; J7050; J7120; P9017; Q9967; U0003; U0005

== ENCOUNTER 2020-07-28 17:52 | Inpatient (IN) | payer MEDICARE, MEDICAID, SELFPAY ==
--- NOTE | ~2020-07-28 | XR_ITS ---
EXAMINATION: XR foot RT min 3V DATE: 07/28/2020 15:18 INDICATION: Right forefoot osteomyelitis. TECHNIQUE: 4 views of right foot were obtained. COMPARISON: Right foot radiographs 07/15/2020, 05/20/20 FINDINGS: There is amputation of the mid shaft of the third metatarsal. Again seen is a transverse fr acture of the diaphysis of the third metatarsal stump. There is an ulcer near head of fifth metatarsa l. There are erosions of fifth proximal phalanx and head of fifth metatarsal with pathologic fracture of base of fifth proximal phalanx. There are erosions of the head and neck of fourth metatarsal with aggressive periosteal reaction. Again seen is a pathologic fracture of neck of fourth metatarsal. On 05/20/2020, there was ankylosis of second proximal interphalangeal joint. Again seen is a transverse f racture at the site of that previously seen ankylosis. There is severe arthritis of second metatarsop halangeal joint with erosions that are stable from 07/15/2020, but new from 05/20/2020. 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 There is mild midfoot osteoarthritis. There are en thesophytes at the posterior and plantar aspects of calcaneal tuberosity. IMPRESSION: 1. Worsened osteomyelitis of fifth proximal phalanx and head of fifth metatarsal with new pathologic fracture of base of fifth proximal phalanx. 2. Osteomyelitis of distal aspect of fourth metatarsal with pathologic fracture of neck of fourth met atarsal again seen. 3. Amputation of mid shaft of third metatarsal with fracture of the diaphysis of the stump again seen . 4. Transverse fracture at the site of ankylosis of the second proximal and middle phalanges again see n. 5. Septic arthritis of second metatarsophalangeal joint that is stable from 07/15/2020. Reviewed, dictated and finalized at location A. IMPRESSION: 1. Worsened osteomyelitis of fifth proximal phalanx and head of fifth metatarsa l with new pathologic fracture of base of fifth proximal phalanx. 2. Osteomyelitis of distal aspect of fourth metatarsal with pathologic fracture of neck of fourth metatarsal again seen. 3. Amputation of mid shaft of third metatarsal with fracture of the diaphysis o f the stump again seen. 4. Transverse fracture at the site of ankylosis of the second proximal and midd le phalanges again seen. 5. Septic arthritis of second metatarsophalangeal joint that is stable from 06/18.
[2020-07-28 15:00] VITALS: BP 144/72; PULSE 81; RESP 18; TEMP 36.9; O2SAT 99
--- NOTE | 2020-07-28 15:03 | PM.CNOR ---
Assessment and Plan Assessment and plan (1) Acute osteomyelitis of toe of right foot: Code(s): M86.171 - Other acute osteomyelitis, right ankle and foot Status: Acute Assessment and Plan: Patient evaluated in [place] wound clinic today for worsening right lateral forefoot wound over the 5th metatarsal head. Increasing bone exposure noted. Malodorous drainage. Patient denies fever, chills, night sweats, nausea, vomiting or diarrhea. Recommended admission to the hospital due to increasing blood glucose levels and worsening wound. Notable increase in swelling as well. Patient does have discoloration of bilateral lower extremities consistent with venous stasis. Recommend initiation of IV antibiotics. Local wound care with silver gel all areas open wound beds and covered dry. patient will require radiographs today. patient will likely need excision all debridement of suspected osteomyelitis and diabetic foot ulcer of the right foot. We will await radiographs to determine surgical plan in the event there is more indication of osteomyelitis. Patient may utilize fracture boot when out of bed. May remove fracture boot and elevate right lower extremity on pillows while in bed. Close glycemic control. Pain control. Will continue to monitor. We will tentatively plan for surgical intervention on Tuesday at 3:00 p.m. Patient to be NPO at midnight on Tuesday. Additional Plan This document was completed by using [employer] Fluency Direct speech recognition software, therefore guest service supervisor variances may occur. Despite proofreading, typographical errors may also occur. History of Present Illness HPI Consult date: 07/28/20 Requesting physician: Oscar Ruvalcaba MD Consult reason: other (Worsening Right DFU with suspected osteomylitis ) Chief complaint: right diabetic foot ulcer with osteomylitis Narrative: 69-year-old male admitted today from the [place] wound clinic for worsening of right lateral diabetic foot ulcer over the 5th metatarsal head with new onset bone exposure. Patient was evaluated in the wound clinic on Tuesday and it was recommended he be admitted for IV antibiotics at that time however the patient declined. He is extremely emotional today. Worsening of redness and lower extremity swelling noted. Recommended admission for IV antibiotics and radiographs as well as debridement in the operating room given bone exposure in patient is agreeable. The patient was admitted in early May for a right 3rd ray ulcer and necrotizing fasciitis. He underwent surgical intervention with a right 3rd ray amputation. He has been closely monitored in [place] [facility] by the orthopedic service. during his postoperative recovery for the right 3rd ray amputation he was undergoing dressing changes and progressing well initially. He was residing at [facility] and rehab for IV antibiotics through July 01. It was determined that he did not need oral antibiotics by Infectious Disease pending completion of his IV antibiotics. Over the course of his recovery we noticed a new onset right lateral 5th metatarsal head ulcer. This continued to worsen over the last several weeks and has been increasing in size over the last 1 week. Cultures of the wound were taken approximately 2 weeks ago which revealed Staph. The patient has been on oral antibiotics since that time. No improvement has been noted in now bone is visible. Patient has been admitted to the hospitalist service for medical management and Orthopedics consulting. Review of Systems Constitutional: Constitutional: Reports as per HPI, Reports no additional constitutional complaints, Denies chills, Denies fatigue, Denies fever(s), Denies weakness and Reports other (dizziness) Eyes: Eyes: Reports no additional eye complaints, Denies change in vision and Denies loss of vision ENT: Reports system reviewed and no additional complaints, except as documented, Denies dysphagia, Denies dizzi
--- NOTE | 2020-07-28 15:31 | ADMGEN ---
This patient, Dimitry Pa, was admitted to [address] [facility] [address] [facility] Surg Room 321-01. Patient/family oriented to hospital policies and general routines including ID bracelet, bed and alarms, visiting hours, pain management, procedures, bathroom and other care routines, personal items, smoking policy, room service/diet, and visiting hours. Information on how to activate the Rapid Response Team has been discussed. Patient/Family are encouraged to report perceived risks to care and to ask questions if they do not understand what they are told or what they should do.
[2020-07-28 15:53] VITALS: PULSE 81; RESP 18; O2SAT 99
--- NOTE | 2020-07-28 18:21 | PC.NURSE ---
During admission, pt seemed down and depressed. Scored high on the [place] assessment. Called and notified of findings. Per monitor pt often. Pt seems to be in a better mood.
--- NOTE | 2020-07-28 19:57 | PM.IMHP ---
H&P: HPI History of Present Illness Date/Time: 07/28/20 19:57 this is a 69-year-old male patient who has been going to the wound care clinic for very long time. The patient tells me that he had his 3rd right toe removed about 10 weeks ago. The patient is diabetic but tells me that his blood sugars are less than 200 typically he said only a couple times it is gone over 200. The patient stated that he saw Dr. bui at the wound care clinic about a week ago. The wound care clinic today and he is having worsening right lateral 5th metatarsal head wound worsening today. With increased bone exposure noted. There is also malodorous drainage. The patient stated he did have any fever or chills no nausea vomiting or diarrhea. The patient tells me that he has chronic venous stasis. The patient does not complain of any discomfort at this time. The patient stated that he has difficulty with people touching his feet. Patient is planned for possible I&D tomorrow. The patient is a direct admit on the date of service 07/28/2020. Chief Complaint: Osteomyelitis right foot Review of Systems Review of Systems: All systems reviewed & are unremarkable except as noted in HPI and below Constitutional: Constitutional: Reports as per HPI and Reports no additional constitutional complaints Eyes: Eyes: Reports as per HPI and Reports no additional eye complaints ENT: Reports system reviewed and no additional complaints, except as documented and Reports Normal hearing present Cardiovascular: Cardiovascular: Reports no additional cardiovascular complaints Respiratory: Respiratory: Reports no additional respiratory complaints and Reports no additional respiratory complaints Gastrointestinal: Gastrointestinal: Reports as per HPI and Reports no additional gastrointestinal complaints Musculoskeletal: Musculoskeletal: Reports no additional musculoskeletal complaints Integumentary/Breasts: Skin/Breast: Reports system reviewed and no additional complaints, except as docu and Reports as per HPI Neurologic: Reports system reviewed and no additional complaints, except as documented, Reports as per HPI and Reports Normal hearing present Psychiatric: Psychiatric: Reports no additional psychiatric complaints and Reports as per HPI Endocrine: Endocrine: Reports no additional endocrine complaints Hematologic/Lymphatic: Hematologic/Lymphatic: Reports no additional hematologic/lymphatic complaints Allergic/Immunologic: Allergic/Immunologic: Reports no additional allergic/immunologic complaints PMFSH Past Medical History Medical History Apical mural thrombus CHF (congestive heart failure) Echo 07/13/19 showing EF 20-25%, dilated LV, inferapical thrombus, diastolic dysfunction (E/e' 26), mod LAE, mild-mod TR. Diabetes mellitus Diabetic ulcer of right foot associated with diabetes mellitus due to underlying condition Dyslipidemia Essential (primary) hypertension NICM (nonischemic cardiomyopathy) NSVT (nonsustained ventricular tachycardia) PAT (paroxysmal atrial tachycardia) Peripheral arterial disease Shoulder fracture, left Staph infection thigh Vitamin D deficiency Surgical History Surgical History History of complete ray amputation of third toe of right foot 05/2020 - due to osteomyelitis History of permanent cardiac pacemaker placement [employer] BiV-ICD placed at [facility] 08/06/19 Family History Family History Other No problems noted. Sibling Acute myocardial infarction Mother Lung cancer Social History Social History (Updated 07/28/20 @ 15:41 by ALIZA Astudillo) Social History: The patient was discharged to [facility] re[facility] status post previous hospitalization in May. He was discharged from there around July 01 at the completion of his IV antibiotics and has been li
[2020-07-28 20:45] VITALS: BMI 24.3
[2020-07-28 20:58] LABS: Basophils Percent Auto 0.4 % (0.2-1.2); Eosinophils Absolute Auto 0.3 K/mm3 (0-0.3); Eosinophils Percent Auto 3.6 % (0-4.4); Hematocrit 31.1 % (42.0-52.0); Hemoglobin 10.4 g/dL (14.0-18.0); Immature Granulocyte Absolute 0.02 K/mm3 (0.00-0.031); Immature Granulocyte Percent A 0.2 % (0-0.5); Lymphocytes Percent Auto 21.1 % (18.3-44.2); Mean Corpuscular HGB Conc 33.4 g/dl (32-36); Mean Corpuscular Hemoglobin 29.1 pg (26-34); Mean Corpuscular Volume 87.1 fl (80-100); Monocytes Absolute Auto 0.6 K/mm3 (0.1-0.6); Monocytes Percent Auto 6.9 % (2.6-8.5); Neutrophils Absolute Auto 5.5 K/mm3 (1.3-6.7); Neutrophils Percent Auto 67.8 % (45.5-73.1); Platelet Count Result 355 k/mm3 (150-375); Red Blood Count 3.57 M/mm3 (4.6-6.20); Red Cell Distribution Width 12.6 % (11.5-14.5); White Blood Count 8.1 K/mm3 (4.5-10.0)
[2020-07-28 21:06] LABS: Hemoglobin A1C 8.5 % (<5.7)
[2020-07-28 21:09] LABS: Lactic Acid Reflex 0.8 mmol/L (0.7-2.1); Magnesium 1.9 mg/dL (1.6-2.3)
[2020-07-28 21:57] VITALS: PULSE 80
[2020-07-28] MEDS: ATORVASTATIN 20 MG TABLET PO (21:57)
[2020-07-28] MEDS: carvediloL 6.25 MG TABLET PO (21:57)
[2020-07-28] MEDS: lisinopriL 5 MG TABLET BY MOUTH (21:57)
[2020-07-28 22:00] VITALS: BP 130/64; PULSE 84; RESP 16; TEMP 36.2; O2SAT 100
[2020-07-28 22:22] LABS: Glucose Point of Care 137 (65-105)
[2020-07-29 02:07] LABS: Anion Gap 4 mmol/L (8-16); Blood Urea Nitrogen 20 mg/dL (9-20); Calcium 8.7 mg/dL (8.4-10.2); Carbon Dioxide 32 mmol/L (22-30); Chloride 100 mmol/L (98-107); Estimated CRCL calculation 81 ml/min; Estimated Glomerular Filt Rate > 60; Glucose 135 mg/dL (75-110); Potassium 3.8 mmol/L (3.4-5.0); Sodium 136 mmol/L (137-145)
[2020-07-29 06:00] VITALS: BP 102/62; PULSE 77; RESP 16; TEMP 36.1; O2SAT 100
[2020-07-29 06:33] LABS: Basophils Percent Auto 0.5 % (0.2-1.2); Eosinophils Absolute Auto 0.2 K/mm3 (0-0.3); Eosinophils Percent Auto 3.8 % (0-4.4); Immature Granulocyte Absolute 0.01 K/mm3 (0.00-0.031); Immature Granulocyte Percent A 0.2 % (0-0.5); Lymphocytes Absolute Auto 1.31 K/mm3 (0.9-3.2); Lymphocytes Percent Auto 22.6 % (18.3-44.2); Mean Corpuscular HGB Conc 32.3 g/dl (32-36); Mean Corpuscular Hemoglobin 28.2 pg (26-34); Mean Corpuscular Volume 87.6 fl (80-100); Mean Platelet Volume 9.4 fl (7.4-10.4); Monocytes Absolute Auto 0.4 K/mm3 (0.1-0.6); Monocytes Percent Auto 7.1 % (2.6-8.5); Neutrophils Absolute Auto 3.8 K/mm3 (1.3-6.7); Neutrophils Percent Auto 65.8 % (45.5-73.1); Platelet Count Result 334 k/mm3 (150-375); Red Blood Count 3.54 M/mm3 (4.6-6.20); Red Cell Distribution Width 12.4 % (11.5-14.5); White Blood Count 5.8 K/mm3 (4.5-10.0)
[2020-07-29 06:39] LABS: Lactic Acid Reflex 0.7 mmol/L (0.7-2.1)
[2020-07-29 06:41] LABS: Alanine Aminotransferase 24 U/L (4-50); Albumin Level 3.6 g/dL (3.5-5.1); Alkaline Phosphatase 116 U/L (38-126); Anion Gap 3 mmol/L (8-16); Aspartate Amino Transferase 32 U/L (17-59); Bilirubin,Total 0.2 mg/dL (0.2-1.3); Blood Urea Nitrogen 19 mg/dL (9-20); Calcium 8.8 mg/dL (8.4-10.2); Carbon Dioxide 31 mmol/L (22-30); Chloride 101 mmol/L (98-107); Estimated CRCL calculation 81 ml/min; Estimated Glomerular Filt Rate > 60; Glucose 134 mg/dL (75-110); Magnesium 1.8 mg/dL (1.6-2.3); Sodium 135 mmol/L (137-145)
[2020-07-29 08:32] LABS: Glucose Point of Care 167 (65-105)
[2020-07-29] MEDS: INSULIN DETEMIR 100 UNITS/ML 25 UNITS SUB-Q ×2 (08:33→17:10)
--- NOTE | 2020-07-29 08:33 | PM.PNORT ---
Progress Note: A&P Assessment and Plan (1) Osteomyelitis: Qualifiers: Osteomyelitis type: other acute Osteomyelitis location: foot Laterality: right Qualified Code(s): M86.171 - Other acute osteomyelitis, right ankle and foot Code(s): M86.9 - Osteomyelitis, unspecified Status: Acute Assessment and Plan: Previous right 3rd metatarsal osteomyelitis, status post ray amputation. Complicated by a new ulceration and now osteomyelitis of the 5th metatarsal and toe. Possible involvement of the rest of the forefoot. Patient unable to have MRI secondary to pacemaker. Continue with IV antibiotics. Discussed amputation with patient. He has declined. He has consented to a debridement of the 5th metatarsal osteomyelitis with further observation the rest of the forefoot. Plan to proceed when medically stable Discussed nonoperative and operative treatment options with the patient. Risks and benefits of each as well as alternatives were reviewed. All of the patient's questions were answered. The risks of surgery reviewed including but not limited to: Neurovascular damage, wound complication, infection, blood clot, pulmonary embolus, stroke, myocardial infarction, and anesthetic risks up to and including . Continued pain and possible dysfunction were explained. Specific risks of the procedure including later recurrence of deformity. No guarantees were offered. If complications occur, the patient understands the need for further treatment, possible further surgery. Patient verbalizes understanding and wishes to proceed. PLAN: debridement right diabetic foot infection with excision of osteomyelitis. 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 No new complaints. Exam Const: General: comfortable and no acute distress Resp: Effort & Inspection: normal respiratory effort Cardio: Rate: regular rate Rhythm: regular rhythm GI: Inspection: non-distended GI Palp: Yes Soft to palpation and No Tenderness to palpation present (GI) Skin: Wounds: wounds noted (Large wound right foot ) Neuro: Cognition (Neuro): normal cognition Extrem: Right lower extremity: foot (see below ) Details: motor-sensory exam Details: two point discrimination abnormal and light-touch abnormal; abnormal capillary refill, abnormal to inspection and no tenderness Other: Unable to palpate pedal pulses. Incision on the dorsal aspect of the right foot in the interspace between the now 2nd and 4th ray with continued improvement, no signs of active infection. Incisional area measures 5x0.7x1.0 cm. Wound bed is 80% red/ pink and 20% slough. Increasing swelling to the right lower extremity. Redness noted. Wound on the lateral aspect of the 5th metatarsal head measures 3.0 x 3.3 by 0.5 cm. visible bone noted at this time. Increasing redness. Malodorous. No purulence drainage noted. Psych: Mental Status: mental status grossly normal Objective Data Vital Signs Vital Signs: Vital Signs - 24 hr 07/28/20 15:00 07/28/20 15:53 07/28/20 21:57 Temperature 98.4 F Pulse Rate 81 81 80 Respiratory Rate 18 18 Blood Pressure 144/72 H Pulse Oximetry 99 99 07/28/20 22:00 07/29/20 06:00 Temperature 97.2 F L 96.9 F L Pulse Rate 84 77 Respiratory Rate 16 16 Blood Pressure 130/64 102/62 Pulse Oximetry 100 100 Intake
[2020-07-29 08:37] VITALS: PULSE 78
[2020-07-29] MEDS: carvediloL 6.25 MG TABLET PO ×2 (08:37→20:58)
[2020-07-29] MEDS: lisinopriL 5 MG TABLET BY MOUTH ×2 (08:37→17:13)
[2020-07-29] MEDS: FUROSEMIDE 20 MG TABLET PO (08:39)
[2020-07-29] MEDS: ASPIRIN 81 MG ENTERIC TABLET PO (08:39)
[2020-07-29] MEDS: MAGNESIUM OXIDE 400 MG TABLET PO ×2 (08:39→17:13)
[2020-07-29] MEDS: SILVERGEL (ELTA) 45 ML 1 APPLIC TOPICAL (09:56)
[2020-07-29 11:26] VITALS: BMI 24.3
[2020-07-29 11:50] LABS: Glucose Point of Care 209 (65-105)
[2020-07-29] MEDS: INSULIN ASPART (*BKC) 100 UNITS/ML SUB-Q (11:51)
--- NOTE | 2020-07-29 12:45 | PM.IMPN ---
Progress Note: A&P Assessment and Plan (1) Osteomyelitis: Qualifiers: Osteomyelitis type: other acute Osteomyelitis location: foot Laterality: right Qualified Code(s): M86.171 - Other acute osteomyelitis, right ankle and foot Code(s): M86.9 - Osteomyelitis, unspecified Status: Acute Assessment and Plan: Patient is currently on imipenem and vanc Pending ID consult Appreciate ortho note Patient declined amputation Medical management (2) Diabetes mellitus: Qualifiers: Diabetes mellitus type: type 2 Diabetes mellitus [facility] insulin use: without tank terminal gauger use Diabetes mellitus complication status: without complication Qualified Code(s): E11.9 - Type 2 diabetes mellitus without complications Code(s): E11.9 - Type 2 diabetes mellitus without complications Status: Acute Assessment and Plan: Continue to monitor Accu-Cheks AC and HS Insulin sliding scale as needed (3) NICM (nonischemic cardiomyopathy): Code(s): I42.8 - Other cardiomyopathies Status: Acute Assessment and Plan: Continue home meds Continue to monitor (4) Diabetic ulcer of right foot associated with diabetes mellitus due to underlying condition: Qualifiers: Diabetic foot ulcer location: other Non-pressure ulcer stage: with necrosis of bone Qualified Code(s): E08.621 - Diabetes mellitus due to underlying condition with foot ulcer; 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 Code(s): E08.621 - Diabetes mellitus due to underlying condition with foot ulcer; L97.519 - Non-pressure chronic ulcer of other part of right foot with unspecified severity Status: Acute Assessment and Plan: Local care Follow ortho recs (5) Presence of combination internal cardiac defibrillator (ICD) and pacemaker: Code(s): Z95.810 - Presence of automatic (implantable) cardiac defibrillator Status: Acute Assessment and Plan: Continue to monitor (6) Complete heart block: Code(s): I44.2 - Atrioventricular block, complete Status: Acute Assessment and Plan: Pacemaker insitu (7) CHF (congestive heart failure): Qualifiers: Heart failure chronicity: unspecified Heart failure type: unspecified Qualified Code(s): I50.9 - Heart failure, unspecified Code(s): I50.9 - Heart failure, unspecified Status: Acute Assessment and Plan: Appears to be compensated His daily intake and output Subjective Date/time seen: 07/29/20 12:45 I feel okay Review of Systems Review of Systems: Narrative: Patient was a direct admit from wound care clinic due to the worsening of foot ulcer Constitutional: Comments: No fevers no rigors no chills Cardiovascular: Comments: No chest pain no PND no orthopnea Respiratory: Comments: No shortness of breath no cough no sputum production Gastrointestinal: Comments: No nausea no vomiting no diarrhea no abdominal Musculoskeletal: Comments: Foot ulcer Integumentary/Breasts: Comments: Foot ulcer Neurologic: Comments: No sensorimotor deficit Exam Narrative: Exam Narrative: Laying in bed in no acute distress Const: General: comfortable, no acute distress, well developed, alert and awake Nutritional Appearance: average body habitus Orientation/consciousness: patient oriented x3 HENMT: Head: normal to inspection, normocephalic and atraumatic Ears: hearing grossly normal bilaterally Face and sinus: normal facial exam Eyes: General: appearance normal, both eyes and all related structures Pupils: Equal, round and reactive pupils present EOM: EOMs intact bilaterally Neck: Neck: full ROM, no lymphadenopathy and no JVD Thyroid: thyroid normal Lymphatic: no lymphadenopathy noted Resp: Effort & Inspection: normal respiratory effort and able to speak in complete sentences Auscultation: clear to auscultation bilaterally Cardio: Jugular venous dis
[2020-07-29 14:00] VITALS: BP 130/60; PULSE 79; RESP 16; TEMP 36.4; O2SAT 100
--- NOTE | 2020-07-29 14:29 | WPDINFPN2 ---
Progress Note: A&P Assessment and Plan (1) Osteomyelitis: Qualifiers: Osteomyelitis type: other acute Osteomyelitis location: foot Laterality: right Qualified Code(s): M86.171 - Other acute osteomyelitis, right ankle and foot Code(s): M86.9 - Osteomyelitis, unspecified Status: Acute Assessment and Plan: Chronic OM R foot REC Ctx short term, not after discharge Subjective Date/time seen: 07/29/20 14:29 Objective Data Vital Signs Vital Signs: Vital Signs - 24 hr 07/28/20 15:00 07/28/20 15:53 07/28/20 21:57 Temperature 36.9 C Pulse Rate 81 81 80 Respiratory Rate 18 18 Blood Pressure 144/72 H Pulse Oximetry 99 99 07/28/20 22:00 07/29/20 06:00 07/29/20 08:37 Temperature 36.2 C L 36.1 C L Pulse Rate 84 77 78 Respiratory Rate 16 16 Blood Pressure 130/64 102/62 Pulse Oximetry 100 100 Intake/Output Intake/Output: Intake & Output 07/26/20 07/27/20 07/28/20 07/29/20 23:59 23:59 23:59 23:59 Intake Total 100 600 Output Total 250 300 Balance -150 300 Meds/Results Medications: Active Medications Generic Name Dose Route Start Last Admin Trade Name Freq PRN Reason Stop Dose Admin Aspirin 81 mg 07/29/20 09:00 07/29/20 08:39 Aspirin 81 Mg Enteric Tablet PO 81 mg QAM CRISTI Administration Atorvastatin Calcium 20 mg 07/28/20 21:00 07/28/20 21:57 Atorvastatin 20 Mg Tablet PO 20 mg HS CRISTI Administration Carvedilol 6.25 mg 07/28/20 21:00 07/29/20 08:37 Carvedilol 6.25 Mg Tablet PO 6.25 mg Q12HR CRISTI Administration Dextrose 12.5 gm 07/28/20 20:02 Dextrose 50% 25 Gm/50 Ml Syringe IV PUSH PRN PRN Hypoglycemia Protocol Furosemide 20 mg 07/29/20 09:00 07/29/20 08:39 Furosemide 20 Mg Tablet PO 20 mg DAILY CRISTI Administration Glucagon 1 mg 07/28/20 20:02 Glucagon For Inj 1 Mg Vial IM PRN PRN Hypoglycemia Protocol Glucose 15 gm 07/28/20 20:02 Glucose Oral Gel 15 Gm Of Glucse In 37.5 Gm Tube PO PRN PRN Hypoglycemia Protocol Dextrose 1,000 mls @ 100 mls/hr 07/28/20 20:02 Dextrose 5% 1,000 Ml IVPB PRN PRN Hypoglycemia Protocol Imipenem/Cilastatin Sodium 500 mg in 100 mls @ 300 mls/hr 07/29/20 04:00 07/29/20 11:24 Primaxin 500 Mg/D5w 100 Ml IVPB Infused Q6H CRISTI Infusion Vancomycin HCl 1,500 mg in 500 mls @ 333.333 mls/hr 07/29/20 07:00 07/29/20 06:24 Vancomycin 1,500 Mg/D5w 500 Ml IVPB 333.33 mls/hr Q12H CRISTI Administration Insulin Aspart 2 - 5 units 07/29/20 08:00 07/29/20 11:51 Insulin Aspart (*Bkc) 100 Units/Ml SUB-Q 2 units TIDWM CRISTI Administration Protocol Insulin Detemir 25 units 07/29/20 09:00 07/29/20 08:33 Insulin Detemir 100 Units/Ml SUB-Q 25 units BID CRISTI Administration Lisinopril 5 mg 07/28/20 20:30 07/29/20 08:37 Lisinopril 5 Mg Tablet BY MOUTH 5 mg BID CRISTI Administration Magnesium Oxide 400 mg 07/29/20 09:00 07/29/20 08:39 Magnesium Oxide 400 Mg Tablet PO 400 mg BID CRISTI Administration Ondansetron HCl 4 mg 07/28/20 20:00 Ondansetron Inj 4 Mg/2 Ml Vial IV PUSH Q6H PRN Nausea And Vomiting Silver Nitrate 1 applic 07/29/20 09:00 07/29/20 09:56 Silvergel (Elta) 45 Ml TOPICAL 1 applic Q72HR CRISTI Administration Radiology Results: ITS Impressions Foot X-Ray 07/28/20 15:46 IMPRESSION: 1. Worsened osteomyelitis of fifth proximal phalanx and head of fifth metatarsal with new pathologic fracture of base of fifth proximal phalanx. 2. Osteomyelitis of distal aspect of fourth metatarsal with pathologic fracture of neck of fourth metatarsal again seen. 3. Amputation of mid shaft of third metatarsal with fracture of the diaphysis of the stump again seen. 4. Transverse fracture at the site of ankylosis of the second proximal and middle phalanges again seen. 5. Septic arthritis of second metatarsophalangeal joint that is stable from 07/15/2020.
--- NOTE | 2020-07-29 15:33 | CONS_ITS ---
DATE OF CONSULTATION: REASON FOR CONSULTATION: Osteomyelitis, right foot. HISTORY OF PRESENT ILLNESS: A 69-year-old male known to me from his admission in May when he had acute osteomyelitis of the right 3rd toe and metatarsal. He underwent ray amputation and received 6 weeks of IV antibiotics. Blood cultures were positive at that time. In the interim, the patient was here on June 10 for outpatient surgery, and he had debridement of skin, subcutaneous tissue and muscle of a diabetic foot ulcer, not further identified as far as anatomy. Another operation was performed on June 24, also outpatient, for wound dehiscence and underwent excision and debridement. He was admitted once again on July 28 with worsening foot wound at the 5th metatarsal head. He had another outpatient procedure also performed on July 22 for debridement of a foot ulcer, not otherwise specified. Here, the patient has received vancomycin, imipenem, and consultation requested today. The patient has declined full amputation. Operative plan is for debridement of the 5th metatarsal osteomyelitis. The patient denies fever, chills, or sweats. He declines further fpc stay and has had no other recent antibiotics. ALLERGIES: PENICILLIN, UNKNOWN REACTION. TOLERATES CEPHALOSPORINS. PRESENT MEDICATIONS: No immunosuppressants. HABITS: No tobacco or alcohol. PAST MEDICAL HISTORY: In addition to the above, pacemaker, peripheral vascular disease, PAT and NSVT, nonischemic cardiomyopathy, hypertension, hyperlipidemia, diabetes mellitus, heart failure, apical thrombus. SOCIAL HISTORY: He has been living with his [id number] most recently with dressing changes at home and does not work outside the home. REVIEW OF SYSTEMS: Hyperglycemia, diminished sensation, generalized weakness, headache. 14-point review otherwise negative. FAMILY HISTORY: Not pertinent to his present illness. EXAM: GENERAL: Elderly male who appears older than his actual age. No respiratory distress. VITAL SIGNS: Afebrile, 77, 16, 102/62, 100% room air. SKIN: Warm and dry. No rashes. NODES: He has no cervical adenopathy. EENT: Conjunctivae are normal. Oropharynx, oral mucosa normal. There are dry mucous membranes. NECK: There is no meningismus, mass, or tenderness. LUNGS: Clear to auscultation and percussion. CARDIAC: Regular rate and rhythm. No murmurs or gallops. Unable to palpate dorsalis pedis pulses. Radial pulses are 1+. ABDOMEN: Scaphoid, nontender. No masses. No organomegaly. Normal bowel sounds. EXTREMITIES: He has edema and erythema of the distal lateral foot with nonviable skin and subcutaneous tissues. No tenderness. There is no erythema over the dorsum of the foot and no streaking. LABORATORY DATA: Wound culture collected on July 15 in the operating room grew a susceptible Staph aureus. Blood cultures are in process. White count 5.8, hemoglobin 10, platelets are 334, his differential is normal. Chemistries with a glucose of 134. Mild hyponatremia. Hemoglobin A1c on 07/28 was 8.5%. Liver function tests normal. RADIOLOGY: Foot x-ray performed on readmission, osteomyelitis of the 5th proximal phalanx and 5th metatarsal head, pathologic fracture. Osteomyelitis of the 4th metatarsal was also noted along with amputation changes and stable arthritis of the 2nd MTP. ASSESSMENT: 1. Chronic osteomyelitis of the right 5th metatarsal head and 5th toe without sepsis. 2. Acute osteomyelitis of the 3rd toe and metatarsal amputated and with 6 weeks of postop antibiotics. 3. Diabetes mellitus, improved control but not optimal. 4. Diabetic peripheral neuropathy. 5. Peripheral vascular disease. RECOMMENDATIONS: 1. Stop above therapy, use ceftriaxo
[2020-07-29 17:09] LABS: Glucose Point of Care 132 (65-105)
[2020-07-29 20:00] VITALS: PULSE 77; RESP 20; O2SAT 100
[2020-07-29 20:58] VITALS: PULSE 79
[2020-07-29] MEDS: ATORVASTATIN 20 MG TABLET PO (20:58)
[2020-07-29 21:17] LABS: Glucose Point of Care 87 (65-105)
[2020-07-29 22:00] VITALS: BP 88/53; PULSE 77; RESP 20; TEMP 36.5; O2SAT 100
[2020-07-30] VITALS (17 sets, daily range): BP systolic 94–135; BP diastolic 57–69; PULSE 50–88; RESP 10–20; TEMP 36.2–36.9; O2SAT 99–100
[2020-07-30 06:08] LABS: Glucose Point of Care 57 (65-105)
[2020-07-30] MEDS: DEXTROSE 50% 25 GM/50 ML SYRINGE IV PUSH (06:09)
--- NOTE | 2020-07-30 06:16 | PC.NURSE ---
Pt blood suger with finger stix 57 today. Refused to drink any liquids. Glucose 12.5 grams given per protocal. Called Dr Piedra,informed of blood sugar last night 87 with hs snack given. Pt not eating well. NPO after MN for incision and drainage foot at 3 PM today. Will repeat bs 0625. Would he like IV fluids started. MD stated will review chart and put in orders.
[2020-07-30 06:28] LABS: Glucose Point of Care 122 (65-105)
[2020-07-30] MEDS: DEXTROSE 5%/0.9% SOD CHL 1,000 ML 75 ML IV CONT ×2 (06:36→20:24)
[2020-07-30 06:57] LABS: Vancomycin Trough 10.2 ug/mL (10.0-20.0)
--- NOTE | 2020-07-30 08:01 | PM.PNORT ---
Progress Note: A&P Assessment and Plan (1) Acute osteomyelitis of toe of right foot: Code(s): M86.171 - Other acute osteomyelitis, right ankle and foot Status: Acute Assessment and Plan: Discussed with patient, plan for surgical debridement today. Pt declines amputation. (2) Depression: Qualifiers: Depression Type: other depression Qualified Code(s): F32.89 - Other specified depressive episodes Code(s): F32.9 - Major depressive disorder, single episode, unspecified Status: Acute Assessment and Plan: Patient withdrawn and appears depressed. Family history of Asperger. Consult to Dr. Lucas. Subjective Subjective Date/Time Seen: 07/30/20 08:01 Pt c/o rt foot pain. Minimal verbalization, appears depressed and withdrawn. Exam Const: General: comfortable and no acute distress Resp: Effort & Inspection: normal respiratory effort Cardio: Rate: regular rate Rhythm: regular rhythm GI: Inspection: non-distended GI Palp: Yes Soft to palpation and No Tenderness to palpation present (GI) Skin: Wounds: wounds noted (Large wound right foot ) Neuro: Cognition (Neuro): normal cognition Extrem: Right lower extremity: foot (see below ) Details: motor-sensory exam Details: two point discrimination abnormal and light-touch abnormal; abnormal capillary refill, abnormal to inspection and no tenderness Other: Unable to palpate pedal pulses. Incision on the dorsal aspect of the right foot in the interspace between the now 2nd and 4th ray with continued improvement, no signs of active infection. Incisional area measures 5x0.7x1.0 cm. Wound bed is 80% red/ pink and 20% slough. Increasing swelling to the right lower extremity. Redness noted. Wound on the lateral aspect of the 5th metatarsal head measures 3.0 x 3.3 by 0.5 cm. visible bone noted at this time. Increasing redness. Malodorous. No purulent drainage noted. Psych: Mental Status: mental status grossly normal Objective Data Vital Signs Vital Signs: Vital Signs - 24 hr 07/29/20 08:37 07/29/20 14:00 07/29/20 20:00 Temperature 97.5 F L Pulse Rate 78 79 77 Respiratory Rate 16 20 Blood Pressure 130/60 Pulse Oximetry 100 100 07/29/20 20:58 07/29/20 22:00 07/30/20 06:00 Temperature 97.7 F 97.2 F L Pulse Rate 79 77 77 Respiratory Rate 20 18 Blood Pressure 88/53 L 105/58 L Pulse Oximetry 100 100 Intake/Output Intake/Output: Intake & Output 07/27/20 07/28/20 07/29/20 07/30/20 23:59 23:59 23:59 23:59 Intake Total 100 900 400 Output Total 250 700 Balance -150 200 400 Meds/Results Medications: Active Medications Generic Name Dose Route Start Last Admin Trade Name Amanda PRN Reason Stop Dose Admin Aspirin 81 mg 07/29/20 09:00 07/29/20 08:39 Aspirin 81 Mg Enteric Tablet PO 81 mg QAM CRISTI Administration Atorvastatin Calcium 20 mg 07/28/20 21:00 07/29/20 20:58 Atorvastatin 20 Mg Tablet PO 20 mg HS CRISTI Administration Carvedilol 6.25 mg 07/28/20 21:00 07/29/20 20:58 Carvedilol 6.25 Mg Tablet PO 6.25 mg Q12HR CRISTI Administration Dextrose 12.5 gm 07/28/20 20:02 07/30/20 06:09 Dextrose 50% 25 Gm/50 Ml Syringe IV PUSH 12.5 gm PRN PRN Administration Hypoglycemia Protocol Furosemide 20 mg 07/29/20 09:00 07/29/20 08:39 Furosemide 20 Mg Tablet PO 20 mg DAILY CRISTI Administration Glucagon 1 mg 07/28/20 20:02 Glucagon For Inj 1 Mg Vial IM PRN PRN Hypoglycemia Protocol Glucose 15 gm 07/28/20 20:02 Glucose Oral Gel 15 Gm Of Glucse In 37.5 Gm Tube PO PRN PRN Hypoglycemia Protocol Dextrose 1,000 mls @ 100 mls/hr 07/28/20 20:02 Dextrose 5% 1,000 Ml IVPB PRN PRN Hypoglycemia Protocol Ceftriaxone Sodium 2 gm in 100 mls @ 200 mls/hr 07/29/20 15:00 07/29/20 15:25 Rocephin 2 Gm/D5w 100 Ml IVPB Infused Q24H CRISTI Infusion Dextrose/Sodium Chloride 1,000 mls @ 75 mls/hr
--- NOTE | 2020-07-30 08:06 | WPDHPUPDATE1 ---
History and Physical Update Update Date/Time: 07/30/20 08:06 History and Physical has been reviewed, including an updated exam of the patient. There are NO changes in the patient's condition. Risks, benefits, and alternatives have been discussed and questions answered. Patient agrees to proceed with procedure.
--- NOTE | 2020-07-30 09:29 | PCWOUND ---
WOCN NOTE Checked on patient, he was sitting in bed with street cloths on and small corner of blanker on his arms. Patient in some ways acts child like. Asked patient if he was willing to put on a hospital gown he was unsure because of the IV in his arm. Explained that we can still change him, he was very agreeable. had patient change into hospital gown and put on clean socks, walked him to the restroom, had him brush his teeth and use the toilet. Made the bed, patient settled in with covers on and turned on the tv. patient has the call light and phone at his side. Asked patient if he had a wallet or anything he needed locked in the safe. He stated yes and pulled a wad of duran, check book, and wallet filled with cards from his pants pocket. Asked REGISTERED DENTAL HYGIENIST to please make sure the items get locked up, she states she will tell the RN. Items are on the patients bed side table right next to him.
[2020-07-30] MEDS: carvediloL 6.25 MG TABLET PO (10:22)
[2020-07-30 11:51] LABS: Glucose Point of Care 105 (65-105)
--- NOTE | 2020-07-30 13:34 | PC.NURSE ---
Pt to OR on bed.
--- NOTE | 2020-07-30 14:23 | WPDANESEPPF ---
Anes - Initial Pre Proc Eval Procedure: Operation Date: 07/30/20 15:00 Proposed Procedures p Incision and Drainage Right Diabetic Foot Ulcer, Excision Osteomyelitis - Ken Alva MD Date/Time: 07/30/20 14:23 Surgeon: Oscar Ruvalcaba MD Pre Op Diagnosis: Diabetic foot ulcer with osteomylitis Patient Data Age: 69 Gender: M Height: 5 ft 10 in Weight: 77 kg Last Vital Signs Temp 36.9 C 07/30/20 13:54 Pulse 83 07/30/20 13:54 Resp 14 07/30/20 13:54 BP 129/64 07/30/20 13:54 Pulse Ox 100 07/30/20 13:54 Allergies Allergy/AdvReac Type Severity Reaction Status Date / Time Penicillins Allergy Mild Unknown Verified 07/17/20 11:20 Home Medications Medication Instructions Recorded Confirmed Type aspirin 81 mg PO QAM #30 tablet 07/17/19 07/28/20 Rx carvedilol 6.25 mg tablet 6.25 mg PO Q12H #60 tablet 02/15/20 07/28/20 Rx atorvastatin [Lipitor] 20 mg PO HS 05/20/20 07/28/20 History magnesium oxide 400 mg PO BID 05/20/20 07/28/20 History furosemide 20 mg PO DAILY #30 tablet 05/28/20 07/28/20 Rx lisinopril 5 mg tablet See Rx Instructions .ROUTE 07/02/20 07/28/20 Rx .COMPLEX #180 tablet insulin aspart U-100 100 unit/mL 5 unit SUBCUT TID #15 ml 07/16/20 07/28/20 Rx (3 mL) subcutaneous pen insulin detemir U-100 100 unit/mL 25 unit SUBCUT BID #15 ml 07/16/20 07/28/20 Rx (3 mL) subcutaneous pen cephalexin 500 mg capsule 500 mg PO Q12H 7 Days #14 cap 07/22/20 07/28/20 Rx Laboratory Tests 07/29/20 07/29/20 07/30/20 17:07 21:06 05:58 POC Capillary Glucose 132 mg/dl H mg/dl 87 mg/dl mg/dl (65-105) (65-105) Vancomycin Trough 10.2 ug/mL ug/mL (10.0-20.0) 04/07/30/20 07/30/20 06:04 06:26 11:43 POC Capillary Glucose 57 mg/dl L* mg/dl 122 mg/dl H mg/dl 105 mg/dl mg/dl (65-105) (65-105) (65-105) Vancomycin Trough Patient hx anesthesia problems: none Family hx anesthesia problems: none PMFSH Past Medical History Medical History Apical mural thrombus CHF (congestive heart failure) Echo 07/13/19 showing EF 20-25%, dilated LV, inferapical thrombus, diastolic dysfunction (E/e' 26), mod LAE, mild-mod TR. Depression Diabetes mellitus Diabetic ulcer of right foot associated with diabetes mellitus due to underlying condition Dyslipidemia Essential (primary) hypertension NICM (nonischemic cardiomyopathy) NSVT (nonsustained ventricular tachycardia) PAT (paroxysmal atrial tachycardia) Peripheral arterial disease Shoulder fracture, left Staph infection thigh Vitamin D deficiency Surgical History Surgical History History of complete ray amputation of third toe of right foot 05/2020 - due to osteomyelitis History of permanent cardiac pacemaker placement Medtronic BiV-ICD placed at [facility] 08/06/19 Family History Family History Other No problems noted. Sibling Acute myocardial infarction Mother Lung cancer Social History Social History Social History: The patient was discharged to [facility] status post previous hospitalization in May. He was discharged from there around July 01 at the completion of his IV antibiotics and has been living with his [id number] and his niece. Dressing changes have been performed by his niece's cousin daily. He has not returned to his home since his last previous hospitalization. He is no longer working at this time due to his complicated wound care. Adrianne [employer], is the healthcare power of trust and estates attorney. He is a full code. He is a lifelong nonsmoker. No drug or alcohol use. Smoking status: Never smoker Alcohol intake: never Substance use: never Living arrangements: with family Occupation/Education: other Additional occupation/education comments:
[2020-07-30 15:02] LABS: Glucose Point of Care 100 (65-105)
--- NOTE | 2020-07-30 15:09 | PM.IMPN ---
Progress Note: A&P Assessment and Plan (1) Osteomyelitis: Qualifiers: Osteomyelitis type: other acute Osteomyelitis location: foot Laterality: right Qualified Code(s): M86.171 - Other acute osteomyelitis, right ankle and foot Code(s): M86.9 - Osteomyelitis, unspecified Status: Acute Assessment and Plan: Patient has declined amputation Going for I&D by orthopedic surgery APPRECIATE ID NOTE CONTINUE ROCEPHIN (2) Diabetic ulcer of right foot associated with diabetes mellitus due to underlying condition: Qualifiers: Diabetic foot ulcer location: other Non-pressure ulcer stage: with necrosis of bone Qualified Code(s): E08.621 - Diabetes mellitus due to underlying condition with foot ulcer; 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 Code(s): E08.621 - Diabetes mellitus due to underlying condition with foot ulcer; L97.519 - Non-pressure chronic ulcer of other part of right foot with unspecified severity Status: Acute Assessment and Plan: LOCAL CARE BETTER GLYCEMIC CONTROL CONTINUE TO MONITOR (3) Essential (primary) hypertension: Code(s): I10 - Essential (primary) hypertension Status: Acute Assessment and Plan: CONTINUE HOME MEDS CONTINUE TO MONITOR (4) NICM (nonischemic cardiomyopathy): Code(s): I42.8 - Other cardiomyopathies Status: Acute Assessment and Plan: APPEARS TO BE STABLE CONTINUE TO MONITOR (5) Presence of combination internal cardiac defibrillator (ICD) and pacemaker: Code(s): Z95.810 - Presence of automatic (implantable) cardiac defibrillator Status: Acute Assessment and Plan: CONTINUE TO MONITOR (6) Complete heart block: Code(s): I44.2 - Atrioventricular block, complete Status: Acute Assessment and Plan: PACEMAKER DEFIBRILLATOR IN SITU (7) Depression: Qualifiers: Depression Type: other depression Qualified Code(s): F32.89 - Other specified depressive episodes Code(s): F32.9 - Major depressive disorder, single episode, unspecified Status: Acute Assessment and Plan: NOT ON MEDS Subjective Date/time seen: 07/30/20 15:09 I'm fine Review of Systems Review of Systems: Narrative: Unable to obtain patient states that he has not been eating however patient has been having meals Exam Narrative: Exam Narrative: Laying in bed Const: General: comfortable, no acute distress, well developed, alert and awake Nutritional Appearance: average body habitus Orientation/consciousness: oriented to person and oriented to place HENMT: Head: normal to inspection, normocephalic and atraumatic Ears: hearing grossly normal bilaterally Face and sinus: normal facial exam Eyes: General: appearance normal, both eyes and all related structures Pupils: Equal, round and reactive pupils present EOM: EOMs intact bilaterally Neck: Neck: full ROM, no lymphadenopathy and no JVD Thyroid: thyroid normal Lymphatic: no lymphadenopathy noted Resp: Effort & Inspection: normal respiratory effort and able to speak in complete sentences Auscultation: clear to auscultation bilaterally Cardio: Jugular venous distension: no JVD Rate: regular rate Rhythm: regular rhythm Heart sounds: S1 normal heart sound present and S2 normal heart sound present GI: GI Palp: Yes Soft to palpation and Yes No hepatosplenomegaly present : General: Yes deferred Skin: Rashes: no rashes Wounds: wounds noted (Right foot ulcer) Neuro: General: oriented to person, oriented to place and CN's II-XI intact bilaterally Cranial nerves: Yes CN's II-XII intact bilaterally and Yes Equal, round and reactive pupils present Cognition (Neuro): normal cognition Speech: normal speech Gait exam (Neuro): Unable to assess gait Motor exam (neuro): 5/5 motor strength present throughout Extrem: General: normal to inspection, full ROM, no joint enlargement and n
[2020-07-30] MEDS: BUPIVACAINE HCL 0.5% PF 30 ML VIAL INFILTRATE (15:40)
[2020-07-30] MEDS: LACTATED RINGERS 1,000 ML 30 ML IV CONT (16:06)
--- NOTE | 2020-07-30 16:26 | P.OP_ITS ---
Procedure Note - Detailed Date of procedure: 07/30/20 Pre-op diagnosis: Diabetic foot ulcer with osteomylitis Post-op diagnosis: same Procedure performed: Excisional debridement of right diabetic foot ulcer with excision of osteomyelitis right 5th metatarsal Description of procedure: Indications: Patient is a 69-year-old gentleman with diabetes and neuropathy previous right 3rd metatarsal osteomyelitis treated with 3rd ray amputation. [facility] for postoperative wound and developed new ulcer on the lateral aspect of the foot. Obvious osteomyelitis of the 5th metatarsal. He presents now for operative treatment. What was done: Patient identified in the preoperative holding. Informed consent given. Operative extremity marked. Patient received intravenous antibiotics. Patient brought to the operating room where underwent general anesthetic by anesthesia team. Positioned supine on operating room table. Time-out performed confirming the patient, site of the surgery and the plan. Right foot prepped draped usual sterile surgical fashion using a Betadine prep solution. Foot and ankle exsanguinated and a calf tourniquet inflated to 225 mmHg. Longitudinal incision made along the lateral border of the 5th metatarsal ellipsing the lateral ulcer. Fifteen blade knife used to sharply excise skin, subcutaneous tissue, muscle which was infected and devitalized and passed off the table. Debridement of the previous 3rd ray amputation wound also performed with a 15 blade knife and a rongeur with excision of skin, subcutaneous tissue and muscle. Third ray wound measured 5 cm in length and 2 cm in width. The lateral ulcer measured 3 x 3 cm. Wound thoroughly irrigated with antibiotic solution. Incision then advanced proximally along the lateral border of the 5th metatarsal with a 15 blade knife. Hemostasis controlled electrocautery. Fifth metatarsal was exposed at the proximal diaphysis and retractors were placed. Bone cutter used to transect the metatarsal was then brought out of the wound and removed. The distal 1/3 was noted to be grossly infected. Base of the proximal phalanx of the 5th toe also removed with a rongeur. Wound thoroughly irrigated antibiotic solution the and of the bone that was present at the metatarsal was shaped with a rongeur. Skin then closed with 0 Prolene interrupted suture. Vancomycin powder placed into the wound prior to closure as well as the 3rd ray wound. Sterile dressing applied. The patient was then woken from anesthesia, extubated and taken to the recovery room in stable condition. All sponge, needle, instrument counts were correct at the end of the case. Implants: None Anesthesia: GLMA Surgeon: Ken Alva MD Crawler Dragline Operator: 1st certified medical technician assistant Estimated blood loss (mL): 5 Tourniquet time (min): 30 Drains: No Packing: Yes Pathology: none sent Complications: None Condition: stable Disposition: PACU Findings: osteomyelitis distal 1/3 5th metatarsal and proximal phalanx small toe.
--- NOTE | 2020-07-30 16:33 | SUR.PHASEI ---
02 removed at 1629.
[2020-07-30 16:51] LABS: Glucose Point of Care 83 (65-105)
--- NOTE | 2020-07-30 17:21 | PC.NURSE ---
Pt returned from OR
[2020-07-30] MEDS: ASPIRIN 81 MG ENTERIC TABLET PO (17:25)
[2020-07-30] MEDS: FUROSEMIDE 20 MG TABLET PO (17:25)
[2020-07-30] MEDS: lisinopriL 5 MG TABLET BY MOUTH (17:26)
[2020-07-30] MEDS: MAGNESIUM OXIDE 400 MG TABLET PO (17:26)
[2020-07-30] MEDS: DOCUSATE SODIUM 100 MG CAPSULE PO (17:28)
[2020-07-30] MEDS: ATORVASTATIN 20 MG TABLET PO (20:15)
[2020-07-30 22:24] LABS: Glucose Point of Care 204 (65-105)
[2020-07-31] VITALS (7 sets, daily range): BP systolic 98–114; BP diastolic 46–58; PULSE 85–100; RESP 18–20; TEMP 36.6–37.4; O2SAT 98–100
[2020-07-31 06:44] LABS: Estimated CRCL calculation 72 ml/min; Estimated Glomerular Filt Rate > 60
[2020-07-31 07:58] LABS: Glucose Point of Care 238 (65-105)
[2020-07-31] MEDS: ASPIRIN 81 MG ENTERIC TABLET PO (08:42)
[2020-07-31] MEDS: DOCUSATE SODIUM 100 MG CAPSULE PO ×2 (08:43→16:36)
[2020-07-31] MEDS: carvediloL 6.25 MG TABLET PO ×2 (08:43→20:39)
[2020-07-31] MEDS: lisinopriL 5 MG TABLET BY MOUTH ×2 (08:44→16:39)
[2020-07-31] MEDS: MAGNESIUM OXIDE 400 MG TABLET PO ×2 (08:44→16:39)
[2020-07-31] MEDS: FUROSEMIDE 20 MG TABLET PO (08:44)
[2020-07-31] MEDS: INSULIN ASPART (*BKC) 100 UNITS/ML SUB-Q ×3 (08:45→16:35)
[2020-07-31] MEDS: INSULIN DETEMIR 100 UNITS/ML 25 UNITS SUB-Q ×2 (08:46→16:37)
--- NOTE | 2020-07-31 09:28 | PM.PNORT ---
Progress Note: A&P Assessment and Plan (1) Osteomyelitis: Qualifiers: Osteomyelitis type: other acute Osteomyelitis location: foot Laterality: right Qualified Code(s): M86.171 - Other acute osteomyelitis, right ankle and foot Code(s): M86.9 - Osteomyelitis, unspecified Status: Acute Assessment and Plan: POD #1: I&D Right DFU Continue PT/OT. NWB RLE. Elevate RLE on pillows when in bed. Monitor dressing. Changed today. 5th ray dusky, concern for viability. Will continue to monitor. Wound cultures pending. Continue IV antibiotics. Awaiting final recommendations from Dr. Levy s/p surgical intervention. Patient adamantly refuses return to SNF upon discharge. (2) Depression: Qualifiers: Depression Type: other depression Qualified Code(s): F32.89 - Other specified depressive episodes Code(s): F32.9 - Major depressive disorder, single episode, unspecified Status: Acute Assessment and Plan: Patient reports improvement in mood today. Consult per Dr. Lucas. Subjective Subjective Date/Time Seen: 07/31/20 09:28 POD #1: I&D Right DFU and excision of osteomyelitis Patient states he is feeling better today. He reports improvement in his mood. Anxious to see foot with dressing change. No new concerns. Review of Systems Constitutional: Constitutional: Denies chills, Denies fatigue and Denies weakness Cardiovascular: Cardiovascular: Denies chest pain, Reports pedal edema and Denies lightheadedness Respiratory: Respiratory: Reports no additional respiratory complaints Gastrointestinal: Gastrointestinal: Denies diarrhea, Denies nausea and Denies vomiting Genitourinary: Genitourinary: Reports no additional male genitourinary complaints Musculoskeletal: Musculoskeletal: Reports as per HPI Exam Const: General: comfortable and no acute distress Resp: Effort & Inspection: normal respiratory effort Cardio: Rate: regular rate Rhythm: regular rhythm GI: Inspection: non-distended GI Palp: Yes Soft to palpation and No Tenderness to palpation present (GI) Skin: Wounds: wounds noted (Large wound right foot ) Neuro: Cognition (Neuro): normal cognition Extrem: Right lower extremity: foot (see below ) Details: motor-sensory exam Details: two point discrimination abnormal and light-touch abnormal; abnormal capillary refill, abnormal to inspection, no tenderness and no crepitus Other: Unable to palpate pedal pulses. Dressing changed. Incision on the lateral aspect of the forefoot well-approximated with sutures intact. Moderate serosanguineous drainage. 5th Ray Dusky. Old incision at the site of the 3rd ray with serosanguineous drainage, 100% red/pink wound bed. Mild erythema to the dorsal aspect of the right forefoot. Psych: Mental Status: mental status grossly normal Objective Data Vital Signs Vital Signs: Vital Signs - 24 hr 07/30/20 10:22 07/30/20 13:54 07/30/20 14:00 Temperature 36.9 C 36.6 C Pulse Rate 77 83 83 Respiratory Rate 14 16 Blood Pressure 129/64 128/67 Pulse Oximetry 100 100 07/30/20 16:06 07/30/20 16:20 07/30/20 16:35 Temperature 36.3 C L Pulse Rate 72 74 76 Respiratory Rate 12 12 10 L Blood Pressure 94/62 L 109/64 113/69 Pulse Oximetry 100 100 100 07/30/20 16:50 07/30/20 17:05 07/30/20 17:20 Temperature 36.7 C Pulse Rate 80 80 81 Respiratory Rate 12 12 16 Blood Pressure 116/66 119/67 132/67 Pulse Oximetry 100 100 100 07/30/20 17:35 07/30/20 18:05 07/30/20 19:04 Temperature 36.6 C 36.6 C 36.7 C Pulse Rate 83 85 88 Respiratory Rate 16 16 18 Blood Pressure 135/65 123/64 125/69 Pulse Oximetry 100 100 100 07/30/20 20:00 07/30/20 20:19 07/30/20 22:10 Temperature 36.4 C Pulse Rate 83 50 L 83 Respiratory Rate 20 20 Blood Pressure 96/57 L Pulse Oximetry 100 100 07/30/20 23:18 07/31/20 02:58 07/31/20 06:36 Temperature 36.9 C 36.9 C Pulse Rate 95 95 Respiratory Rate 18 18 Blood Pressu
--- NOTE | 2020-07-31 09:51 | WPDANESPN ---
Anes - Prog Note Post-Op Date/Time: 07/31/20 09:51 Cardiovascular status: normal Respiratory status: normal Airway patency: baseline Mental status: baseline Post-Op hydration status: normal Vital Signs: Last Vital Signs Temp 36.9 C 07/31/20 06:36 Pulse 100 07/31/20 08:43 Resp 18 07/31/20 06:36 BP 98/46 L 07/31/20 06:36 Pulse Ox 99 07/31/20 06:36 Pain Score (VAS): 0/10. Patient resting in bed at time of assessment, appears comfortable. I/O: Intake & Output 07/30/20 07/31/20 07/31/20 23:59 07:59 15:59 Intake Total 1940 500 840 Output Total 550 Balance 1940 -50 840 Laboratory Tests 07/29/20 06:11 07/31/20 06:09 07/30/20 07/30/20 07/30/20 11:43 15:00 16:27 Creatinine Estim Creat Clear Calc Estimated GFR POC Capillary Glucose 105 100 83 07/30/20 07/31/20 07/31/20 20:23 06:09 07:52 Creatinine 0.90 Estim Creat Clear Calc 72 Estimated GFR > 60 POC Capillary Glucose 204 H 238 H Microbiology 07/29/20 09:52 Foot Right Wound Culture - Preliminary Post-procedural complaints: none Patient Feedback: Patient satisfied with anesthetic care.
--- NOTE | 2020-07-31 11:03 | PCNFU ---
Nutrition Follow-Up Complete: Inadequate Protein Intake as related to DM foot ulcer as evidenced by possible amputation/surgery. goal: Meet estimated nutritional needs Patient is progressing towards goal. We will continue current goal. Pt current nutrition is DBCC. Last recorded weight is 77 kg, no new weight reported. Bowel Motility:+BM 07/29 Labs Reviewed:no new labs to report. Meds Noted:NovoLog,Levemir,Prinivil,Mag ox, Lasix,Rocephin,Coreg. Additional Notes: Nutrtion follow up. Patient states to eating a good breakfast today, 100% documented. He has Glucerna shakes ordered BID for additional 220 kcals and 10 gms protein. POD #1 right foot. Agree with diet orders. Monitoring; Will monitor every 5 days.
[2020-07-31 11:50] LABS: Glucose Point of Care 254 (65-105)
--- NOTE | 2020-07-31 13:45 | PC.NURSE ---
Dr. Lucas here to see patient states patient is not suicidal and we can stop the room checks.
--- NOTE | 2020-07-31 14:14 | WPDCN ---
HPI Data of Consult Date/Time: 07/31/20 14:14 Requesting Physician: Oscar Ruvalcaba MD Primary Care Provider: Helen Pereira MD Consult Narrative Narrative: Diagnoses: Depressive disorder, not otherwise specified acute stress reaction Differential Diagnoses: Major Depression, Recurrent, Moderate Persistent Depressive Disorder Psychological Condition (Depression) related to Physical Condition (Recent partial foot amputation, IDDM) Plan: Patient declines use of an antidepressant such as Zoloft. He also declines psychotherapy. He also in declines any additional follow-up by me. Nursing will contact Case Management to arrange more stimulating activities to address his boredom in the hospital. Reason for Patient Encounter: Dimitry Pa is a 69 year old male This consult was ordered by Dr. Pan for depression. Review of Systems: The patient reports that aside from complaints about his surgical foot, he has no additional problems that he acknowledges regarding his head, chest, abdomen, arms, legs' or joints. Mental Status Exam: Patient is lying in his hospital bed with a mild self-care deficit. Eye contact, posture, psychomotor activity are generally normal. early in the interview the patient rolled over in bed with his back towards me and would mumble softly and, in the opposite direction. When I inquired about he is having turned as such he commented that the light streaming through the window was bothering his eyes. Please note that there was no significant light falling from the window that should be ordinarily considered troubling. I moved around the bed to continue his interview. Speech is with latency, low in volume, slow in rate; but goal-directed and articulate. Mood is: Bored. He denies suicidal or homicidal ideation. He denies being an injury risk to himself or others. He denies any auditory or visual hallucinations or paranoia. He is above average in intelligence and fund of knowledge and generally has average insight and judgment. Patient is able to render decisions of informed consent regarding both person and estate. History of present illness: Referring Physician Report: The patient was noted to be withdrawn and having an odd affect. He is a gentleman who has been independent and recently moved in with a family member. He has had problems with nonadherence to appointments. He was admitted 2 days ago for worsening of his diabetic foot symptoms. He has stayed in bed and will not talk much at patient interview. He was noted to be often tearful when discussing treatment. He has denied suicidal ideation. Medical Nurse's report: The patient has not been noted to have tearfulness. The nurse spoke with the patient's [id number]-[id number] with whom he lives. She stated that he did not tell her of a wound care appointment in recent time. The nurse reports that he was very quiet last night; however, that was the night following his surgery. This morning he was irritable towards 1 of the car wiper. He has been no nursing management problem. He has been alert and oriented x3. He was noted at the very beginning of the hospitalization to have made a vague reference to being suicidal if he was going to have to have his foot operated on. However this was seen as simply an expression of speech and was not particularly interpreted to be evidence of a life threat. Since that expression of speech he has been assessed regularly by the nursing staff for suicidal ideation and has been found not to be a suicide concern. Suicide precautions will be discontinued. Quality: Patient reports that he is upset about having had surgery and that he has been missing work at [employer]. He has no additional spontaneously reported emotional or psychological symptoms. Associated Symptoms: When prompted by the interviewer's questioning and comments the patient indicated that he has been feeling down due to his surgery. He denies anx
--- NOTE | 2020-07-31 14:51 | WPDCN ---
HPI Data of Consult Date/Time: 07/31/20 14:51 Requesting Physician: Oscar Ruvalcaba MD Primary Care Provider: Helen Pereira MD Consult Narrative Narrative: Dimitry Pa is a 69 year old male [facility] Past Medical History Medical History Apical mural thrombus CHF (congestive heart failure) Echo 07/13/19 showing EF 20-25%, dilated LV, inferapical thrombus, diastolic dysfunction (E/e' 26), mod LAE, mild-mod TR. Depression Diabetes mellitus Diabetic ulcer of right foot associated with diabetes mellitus due to underlying condition Dyslipidemia Essential (primary) hypertension NICM (nonischemic cardiomyopathy) NSVT (nonsustained ventricular tachycardia) PAT (paroxysmal atrial tachycardia) Peripheral arterial disease Shoulder fracture, left Staph infection thigh Vitamin D deficiency Surgical History Surgical History History of complete ray amputation of third toe of right foot 05/2020 - due to osteomyelitis History of permanent cardiac pacemaker placement Medtronic BiV-ICD placed at [facility] 08/06/19 Family History Family History Other No problems noted. Sibling Acute myocardial infarction Mother Lung cancer Social History Social History Social History: The patient was discharged to [facility] status post previous hospitalization in May. He was discharged from there around July 01 at the completion of his IV antibiotics and has been living with his iebnlp-[id number] and his niece. Dressing changes have been performed by his niece's cousin daily. He has not returned to his home since his last previous hospitalization. He is no longer working at this time due to his complicated wound care. Adrianne [employer], is the healthcare power of contract attorney. He is a full code. He is a lifelong nonsmoker. No drug or alcohol use. Smoking status: Never smoker Alcohol intake: never Substance use: never Living arrangements: with family Occupation/Education: other Additional occupation/education comments: Employed at [employer] but currently not working Gender identity (if verbalized by the patient): Male Sexual Orientation (if Verbalized by the Patient): Straight or Heterosexual Spiritual care concerns: No Agree to blood products: Yes Meds Home Medications and Allergies Home Medications Medication Instructions Recorded Confirmed Type aspirin 81 mg PO QAM #30 tablet 07/17/19 07/28/20 Rx carvedilol 6.25 mg tablet 6.25 mg PO Q12H #60 tablet 02/15/20 07/28/20 Rx atorvastatin [Lipitor] 20 mg PO HS 05/20/20 07/28/20 History magnesium oxide 400 mg PO BID 05/20/20 07/28/20 History furosemide 20 mg PO DAILY #30 tablet 05/28/20 07/28/20 Rx lisinopril 5 mg tablet See Rx Instructions .ROUTE 07/02/20 07/28/20 Rx .COMPLEX #180 tablet insulin aspart U-100 100 unit/mL 5 unit SUBCUT TID #15 ml 07/16/20 07/28/20 Rx (3 mL) subcutaneous pen insulin detemir U-100 100 unit/mL 25 unit SUBCUT BID #15 ml 07/16/20 07/28/20 Rx (3 mL) subcutaneous pen cephalexin 500 mg capsule 500 mg PO Q12H 7 Days #14 cap 07/22/20 07/28/20 Rx Allergies Allergy/AdvReac Type Severity Reaction Status Date / Time Penicillins Allergy Mild Unknown Verified 07/17/20 11:20 Vital Signs Vital Signs - 24 hr 07/30/20 16:06 07/30/20 16:20 07/30/20 16:35 Temperature 97.3 F L Pulse Rate 72 74 76 Respiratory Rate 12 12 10 L Blood Pressure 94/62 L 109/64 113/69 Pulse Oximetry 100 100 100 07/30/20 16:50 07/30/20 17:05 07/30/20 17:20 Temperature 98.1 F Pulse Rate 80 80 81 Respiratory Rate 12 12 16 Blood Pressure 116/66 119/67 132/67 Pulse Oximetry 100 100 100 07/30/20 17:35 07/30/20 18:05 07/30/20 19:04 Temperature 97.9 F 97.9 F 98.1 F Pulse Rate 83 85 88 Respiratory Rate 1
--- NOTE | 2020-07-31 14:57 | PM.IMPN ---
Progress Note: A&P Assessment and Plan (1) Osteomyelitis: Qualifiers: Osteomyelitis type: other acute Osteomyelitis location: foot Laterality: right Qualified Code(s): M86.171 - Other acute osteomyelitis, right ankle and foot Code(s): M86.9 - Osteomyelitis, unspecified Status: Acute Assessment and Plan: patient is status post I&D continue local care continue to monitor continue current choice of antibiotic awaiting culture appreciate ortho note (2) Depression: Qualifiers: Depression Type: other depression Qualified Code(s): F32.89 - Other specified depressive episodes Code(s): F32.9 - Major depressive disorder, single episode, unspecified Status: Acute Assessment and Plan: psych consult patient has been confused at times. 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 insulin use: without longwall shearer operator use Diabetes mellitus complication status: without complication Qualified Code(s): E11.9 - Type 2 diabetes mellitus without complications Code(s): E11.9 - Type 2 diabetes mellitus without complications Status: Acute Assessment and Plan: patient on Lantus and aspart Accu-Cheks AC and HS continue to monitor diabetic diet (5) NICM (nonischemic cardiomyopathy): Code(s): I42.8 - Other cardiomyopathies Status: Acute Assessment and Plan: appears to be compensated (6) Diabetic ulcer of right foot associated with diabetes mellitus due to underlying condition: Qualifiers: Diabetic foot ulcer location: other Non-pressure ulcer stage: with necrosis of bone Qualified Code(s): E08.621 - Diabetes mellitus due to underlying condition with foot ulcer; 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 Code(s): E08.621 - Diabetes mellitus due to underlying condition with foot ulcer; L97.519 - Non-pressure chronic ulcer of other part of right foot with unspecified severity Status: Acute Assessment and Plan: is status post debridement (7) Presence of combination internal cardiac defibrillator (ICD) and pacemaker: Code(s): Z95.810 - Presence of automatic (implantable) cardiac defibrillator Status: Acute Assessment and Plan: continue to monitor (8) Complete heart block: Code(s): I44.2 - Atrioventricular block, complete Status: Acute Assessment and Plan: status post pacemaker and defibrillator in situ (9) CHF (congestive heart failure): Qualifiers: Heart failure chronicity: unspecified Heart failure type: unspecified Qualified Code(s): I50.9 - Heart failure, unspecified Code(s): I50.9 - Heart failure, unspecified Status: Acute Assessment and Plan: appears to be compensated monitor intake and output Subjective Date/time seen: 07/31/20 14:57 I feel fine Review of Systems Review of Systems: Narrative: patient denied any complaints at the time of my visit however staff have brought up to me the patient has been stating that no foot has been brought to him when he had a tray in front of him consult with Psychiatry has been placed ROS unobtainable: Yes unobtainable due to medical condition ( patient seems to be delusional) Exam Narrative: Exam Narrative: lying in bed Const: General: comfortable, no acute distress, well developed, alert and awake Nutritional Appearance: average body habitus Orientation/consciousness: oriented to person HENMT: Head: normal to inspection, normocephalic and atraumatic Ears: hearing grossly normal bilaterally Face and sinus: normal facial exam Eyes: General: appearan
[2020-07-31 16:30] LABS: Glucose Point of Care 297 (65-105)
[2020-07-31] MEDS: ATORVASTATIN 20 MG TABLET PO (20:42)
[2020-08-01 03:45] LABS: Glucose Point of Care 92 (65-105)
[2020-08-01 06:00] VITALS: BP 150/86; PULSE 59; RESP 18; TEMP 36.4; O2SAT 100
--- NOTE | 2020-08-01 07:25 | PC.NURSE ---
Reported bed side glucose 48 juice x 2 given to patient, also patient eating cereal w/milk, denies symptoms of low blood sugar. 0830 blood sugar 123. 0850 MD made aware of low blood sugar and current blood sugar, ss insulin held, detemir insulin changed to 12 units daily.
[2020-08-01 08:35] LABS: Glucose Point of Care 123 (65-105)
[2020-08-01 09:00] VITALS: PULSE 76
[2020-08-01] MEDS: ASPIRIN 81 MG ENTERIC TABLET PO (09:00)
[2020-08-01] MEDS: carvediloL 6.25 MG TABLET PO ×2 (09:00→20:30)
[2020-08-01] MEDS: FUROSEMIDE 20 MG TABLET PO (09:01)
[2020-08-01] MEDS: DOCUSATE SODIUM 100 MG CAPSULE PO ×2 (09:01→16:12)
[2020-08-01] MEDS: INSULIN DETEMIR 100 UNITS/ML 12 UNITS SUB-Q (09:09)
[2020-08-01] MEDS: lisinopriL 5 MG TABLET BY MOUTH ×2 (09:14→16:12)
[2020-08-01] MEDS: MAGNESIUM OXIDE 400 MG TABLET PO ×2 (09:14→16:12)
[2020-08-01] MEDS: SILVERGEL (ELTA) 45 ML 1 APPLIC TOPICAL (10:27)
[2020-08-01 11:25] LABS: Glucose Point of Care 207 (65-105)
--- NOTE | 2020-08-01 11:48 | PM.PNORT ---
Progress Note: A&P Assessment and Plan (1) Osteomyelitis: Qualifiers: Osteomyelitis type: other acute Osteomyelitis location: foot Laterality: right Qualified Code(s): M86.171 - Other acute osteomyelitis, right ankle and foot Code(s): M86.9 - Osteomyelitis, unspecified Status: Acute Assessment and Plan: POD #2: I&D Right DFU Continue PT/OT. NWB RLE. Elevate RLE on pillows when in bed. Monitor dressing. Changed today. 5th ray dusky with improvement today, still some concern for viability. Will continue to monitor. Wound cultures pending. Continue IV antibiotics. Awaiting final recommendations from Dr. Levy s/p surgical intervention. Patient adamantly refuses return to SNF upon discharge. Would like to go home with home health if possible. States he talked to his Sister in Law who is agreeable to his return home. Okay for discharge when medically stable and antibiotics arranged. Will follow up with patient in outpatient wound clinic. (2) Depression: Qualifiers: Depression Type: other depression Qualified Code(s): F32.89 - Other specified depressive episodes Code(s): F32.9 - Major depressive disorder, single episode, unspecified Status: Acute Assessment and Plan: Patient reports improvement in mood today. Consult per Dr. Lucas. Subjective Subjective Date/Time Seen: 08/01/20 11:48 POD #2: I&D Right DFU and excision of osteomyelitis Patient states he is feeling better today. He reports improvement in his mood. Anxious to see foot with dressing change. No new concerns. Review of Systems Constitutional: Constitutional: Denies chills, Denies fatigue and Denies weakness Cardiovascular: Cardiovascular: Denies chest pain, Reports pedal edema and Denies lightheadedness Respiratory: Respiratory: Reports no additional respiratory complaints Gastrointestinal: Gastrointestinal: Denies diarrhea, Denies nausea and Denies vomiting Genitourinary: Genitourinary: Reports no additional male genitourinary complaints Musculoskeletal: Musculoskeletal: Reports as per HPI Exam Const: General: comfortable and no acute distress Resp: Effort & Inspection: normal respiratory effort Cardio: Rate: regular rate Rhythm: regular rhythm GI: Inspection: non-distended GI Palp: Yes Soft to palpation and No Tenderness to palpation present (GI) Skin: Wounds: wounds noted (Large wound right foot ) Neuro: Cognition (Neuro): normal cognition Extrem: Right lower extremity: foot (see below ) Details: motor-sensory exam Details: two point discrimination abnormal and light-touch abnormal; abnormal capillary refill, abnormal to inspection, no tenderness and no crepitus Other: Unable to palpate pedal pulses. Dressing changed. Incision on the lateral aspect of the forefoot well-approximated with sutures intact. Moderate serosanguineous drainage. 5th Ray mildly dusky, improved. Old incision at the site of the 3rd ray with serosanguineous drainage, 100% red/pink wound bed. Mild erythema to the dorsal aspect of the right forefoot. Psych: Mental Status: mental status grossly normal Objective Data Vital Signs Vital Signs: Vital Signs - 24 hr 07/31/20 14:58 07/31/20 20:39 07/31/20 22:00 Temperature 36.6 C 37.4 C Pulse Rate 92 85 85 Respiratory Rate 20 18 Blood Pressure 109/52 L 106/53 L Pulse Oximetry 98 100 08/01/20 06:00 08/01/20 09:00 Temperature 36.4 C Pulse Rate 59 L 76 Respiratory Rate 18 Blood Pressure 150/86 H Pulse Oximetry 100 Intake/Output Intake/Output: Intake & Output 07/29/20 07/30/20 07/31/20 08/01/20 23:59 23:59 23:59 23:59 Intake Total 900 2440 2470 360 Output Total 700 1450 300 Balance 200 2440 1020 60 Meds/Results Medications: Active Medications Generic Name Dose Route Start Last Admin Trade Name Freq PRN Reason Stop Dose Admin Aspirin 81 mg 07/29/20 09:00 08/01/20 09:00 Aspirin 81 Mg Enteric Tablet PO
[2020-08-01] MEDS: INSULIN ASPART (*BKC) 100 UNITS/ML SUB-Q ×2 (12:28→16:08)
[2020-08-01 12:57] LABS: Glucose Point of Care 48 (65-105)
--- NOTE | 2020-08-01 14:55 | PM.IMPN ---
Progress Note: A&P Assessment and Plan (1) Osteomyelitis: Qualifiers: Osteomyelitis type: other acute Osteomyelitis location: foot Laterality: right Qualified Code(s): M86.171 - Other acute osteomyelitis, right ankle and foot Code(s): M86.9 - Osteomyelitis, unspecified Status: Acute Assessment and Plan: STATUS POST ORTHOPEDIC SURGERY WOUND DEBRIDEMENT AND 5TH RAY AMPUTATION APPRECIATE ORTHOPEDIC SURGERY NOTE WILL FOLLOW IN OUTPATIENT SETTING AWAIT FINAL RECOMMENDATIONS ON ANTIBIOTIC CHOICE HOME WITH HOME HEALTH (2) Essential (primary) hypertension: Code(s): I10 - Essential (primary) hypertension Status: Acute Assessment and Plan: CONTINUE TO MONITOR CONTINUE HOME MEDS (3) NICM (nonischemic cardiomyopathy): Code(s): I42.8 - Other cardiomyopathies Status: Acute Assessment and Plan: PATIENT IS STATUS POST AICD IMPLANTATION CONTINUE TO MONITOR (4) Diabetic ulcer of right foot associated with diabetes mellitus due to underlying condition: Qualifiers: Diabetic foot ulcer location: other Non-pressure ulcer stage: with necrosis of bone Qualified Code(s): E08.621 - Diabetes mellitus due to underlying condition with foot ulcer; 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 Code(s): E08.621 - Diabetes mellitus due to underlying condition with foot ulcer; L97.519 - Non-pressure chronic ulcer of other part of right foot with unspecified severity Status: Acute Assessment and Plan: PATIENT IS STATUS POST WOUND DEBRIDEMENT (5) Presence of combination internal cardiac defibrillator (ICD) and pacemaker: Code(s): Z95.810 - Presence of automatic (implantable) cardiac defibrillator Status: Acute Assessment and Plan: CONTINUE TO MONITOR (6) CHF (congestive heart failure): Qualifiers: Heart failure chronicity: unspecified Heart failure type: unspecified Qualified Code(s): I50.9 - Heart failure, unspecified Code(s): I50.9 - Heart failure, unspecified Status: Acute Assessment and Plan: APPEARS TO BE COMPENSATED Subjective Date/time seen: 08/01/20 14:55 I FEEL FINE Review of Systems Review of Systems: Narrative: PATIENT DENIES ANY COMPLAINTS AT THE TIME OF MY VISIT STATES THAT HE FEELS BETTER HAD BREAKFAST Exam Narrative: Exam Narrative: LAYING IN BED IN NO ACUTE DISTRESS Const: General: comfortable, no acute distress, well developed, alert, awake and ill appearing chronically Nutritional Appearance: average body habitus Orientation/consciousness: patient oriented x3 HENMT: Head: normal to inspection, normocephalic and atraumatic Ears: hearing grossly normal bilaterally Face and sinus: normal facial exam Eyes: General: appearance normal, both eyes and all related structures Pupils: Equal, round and reactive pupils present EOM: EOMs intact bilaterally Neck: Neck: full ROM, no lymphadenopathy and no JVD Thyroid: thyroid normal Lymphatic: no lymphadenopathy noted Resp: Effort & Inspection: normal respiratory effort and able to speak in complete sentences Auscultation: clear to auscultation bilaterally Cardio: Jugular venous distension: no JVD Rate: regular rate Rhythm: regular rhythm Heart sounds: S1 normal heart sound present and S2 normal heart sound present GI: GI Palp: Yes Soft to palpation and Yes No hepatosplenomegaly present : General: Yes deferred Skin: Rashes: no rashes Wounds: no wounds Neuro: General: patient oriented x3 and CN's II-XI intact bilaterally Cranial nerves: Yes CN's II-XII intact bilaterally and Yes Equal, round and reactive pupils present Cognition (Neuro): normal cognition Speech: normal speech Gait exam (Neuro): Normal gait present Motor exam (neuro): 5/5 motor strength present throughout Extrem: General: other ( RIGHT LOWER EXTREMITY FOOT WOUND DRESSING IN PLACE) Objective Data
[2020-08-01 15:40] LABS: Glucose Point of Care 233 (65-105)
[2020-08-01 15:44] VITALS: BP 134/64; PULSE 83; RESP 18; TEMP 36.9; O2SAT 100
[2020-08-01 20:10] VITALS: BP 102/55; PULSE 100; RESP 16; TEMP 37.2; O2SAT 98
[2020-08-01] MEDS: ATORVASTATIN 20 MG TABLET PO (20:29)
[2020-08-01 20:30] VITALS: PULSE 64
[2020-08-01 20:38] LABS: Glucose Point of Care 126 (65-105)
[2020-08-02 05:00] VITALS: BP 106/62; PULSE 70; RESP 16; TEMP 36.6; O2SAT 99
[2020-08-02 07:38] LABS: Glucose Point of Care 101 (65-105)
[2020-08-02] MEDS: INSULIN DETEMIR 100 UNITS/ML 12 UNITS SUB-Q (08:37)
[2020-08-02] MEDS: ASPIRIN 81 MG ENTERIC TABLET PO (08:39)
[2020-08-02] MEDS: FUROSEMIDE 20 MG TABLET PO (08:39)
[2020-08-02] MEDS: MAGNESIUM OXIDE 400 MG TABLET PO ×2 (08:39→17:03)
[2020-08-02] MEDS: lisinopriL 5 MG TABLET BY MOUTH ×2 (08:39→17:03)
[2020-08-02] MEDS: DOCUSATE SODIUM 100 MG CAPSULE PO ×2 (08:39→17:03)
[2020-08-02 08:40] VITALS: PULSE 80
[2020-08-02] MEDS: carvediloL 6.25 MG TABLET PO (08:40)
[2020-08-02 09:34] VITALS: O2SAT 100
[2020-08-02 11:12] LABS: Glucose Point of Care 185 (65-105)
[2020-08-02 14:00] VITALS: BP 127/66; PULSE 86; RESP 16; TEMP 36.7; O2SAT 100
--- NOTE | 2020-08-02 14:10 | PM.IMPN ---
Progress Note: A&P Assessment and Plan (1) Osteomyelitis: Qualifiers: Osteomyelitis type: other acute Osteomyelitis location: foot Laterality: right Qualified Code(s): M86.171 - Other acute osteomyelitis, right ankle and foot Code(s): M86.9 - Osteomyelitis, unspecified Status: Acute Assessment and Plan: PATIENT IS STATUS POST INCISION AND DRAINAGE OF RIGHT FOOT BY ORTHOPEDIC SURGEON AWAITING FINAL RECOMMENDATION ON ANTIBIOTIC CHOICE GOING HOME CONTINUE LOCAL CARE (2) Essential (primary) hypertension: Code(s): I10 - Essential (primary) hypertension Status: Acute Assessment and Plan: CONTINUE HOME MEDS CONTINUE TO MONITOR (3) NICM (nonischemic cardiomyopathy): Code(s): I42.8 - Other cardiomyopathies Status: Acute Assessment and Plan: CONTINUE CARVEDILOL CONTINUE LISINOPRIL (4) Diabetic ulcer of right foot associated with diabetes mellitus due to underlying condition: Qualifiers: Diabetic foot ulcer location: other Non-pressure ulcer stage: with necrosis of bone Qualified Code(s): E08.621 - Diabetes mellitus due to underlying condition with foot ulcer; 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 Code(s): E08.621 - Diabetes mellitus due to underlying condition with foot ulcer; L97.519 - Non-pressure chronic ulcer of other part of right foot with unspecified severity Status: Acute Assessment and Plan: STATUS POST INCISION AND DRAINAGE WITH RAY-AMPUTATION will follow-up in outpatient setting (5) Presence of combination internal cardiac defibrillator (ICD) and pacemaker: Code(s): Z95.810 - Presence of automatic (implantable) cardiac defibrillator Status: Acute Assessment and Plan: continue to monitor (6) CHF (congestive heart failure): Qualifiers: Heart failure chronicity: unspecified Heart failure type: unspecified Qualified Code(s): I50.9 - Heart failure, unspecified Code(s): I50.9 - Heart failure, unspecified Status: Acute Assessment and Plan: continue to monitor seems to be euvolemic Subjective Date/time seen: 08/02/20 14:10 I FEEL MUCH BETTER Review of Systems Review of Systems: Narrative: THE PATIENT DENIED ANY COMPLAINTS AT TIME OF MY VISIT Exam Narrative: Exam Narrative: PATIENT SITTING IN BED IN NO ACUTE DISTRESS Const: General: comfortable, no acute distress, well developed, alert and awake Nutritional Appearance: average body habitus Orientation/consciousness: patient oriented x3 HENMT: Head: normal to inspection, normocephalic and atraumatic Ears: hearing grossly normal bilaterally Face and sinus: normal facial exam Eyes: General: appearance normal, both eyes and all related structures Pupils: Equal, round and reactive pupils present EOM: EOMs intact bilaterally Neck: Neck: full ROM, no lymphadenopathy and no JVD Thyroid: thyroid normal Lymphatic: no lymphadenopathy noted Resp: Effort & Inspection: normal respiratory effort and able to speak in complete sentences Auscultation: clear to auscultation bilaterally Cardio: Jugular venous distension: no JVD Rate: regular rate Rhythm: regular rhythm Heart sounds: S1 normal heart sound present and S2 normal heart sound present GI: GI Palp: Yes Soft to palpation and Yes No hepatosplenomegaly present : General: Yes deferred Skin: Rashes: no rashes Wounds: no wounds Neuro: General: patient oriented x3 and CN's II-XI intact bilaterally Cranial nerves: Yes CN's II-XII intact bilaterally and Yes Equal, round and reactive pupils present Cognition (Neuro): normal cognition Speech: normal speech Gait exam (Neuro): Normal gait present Motor exam (neuro): 5/5 motor strength present throughout Extrem: General: other ( RIGHT LOWER EXTREMITY WOUND DRESSING IN PLACE) Objective Data Vital Signs Vital Signs: Vital Signs - 24 hr 08/01/20
--- NOTE | 2020-08-02 16:02 | PM.DS ---
DS: Admitting Diagnosis Admitting Diagnosis Admitting Diagnosis: (1) Osteomyelitis: (2) Essential (primary) hypertension: (3) Diabetes mellitus: (4) Dyslipidemia: (5) CHF (congestive heart failure): DS: Discharge Diagnosis Discharge Diagnosis (1) Osteomyelitis: Qualifiers: Osteomyelitis type: other acute Osteomyelitis location: foot Laterality: right Qualified Code(s): M86.171 - Other acute osteomyelitis, right ankle and foot Code(s): M86.9 - Osteomyelitis, unspecified Status: Acute Assessment and Plan: Patient is status post ray amputation Does not need antibiotics as per ID doctor (2) Essential (primary) hypertension: Code(s): I10 - Essential (primary) hypertension Status: Acute Assessment and Plan: Continue home meds Continue to monitor (3) NICM (nonischemic cardiomyopathy): Code(s): I42.8 - Other cardiomyopathies Status: Acute Assessment and Plan: Stable Continue home meds Continue to monitor (4) Diabetic ulcer of right foot associated with diabetes mellitus due to underlying condition: Qualifiers: Diabetic foot ulcer location: other Non-pressure ulcer stage: with necrosis of bone Qualified Code(s): E08.621 - Diabetes mellitus due to underlying condition with foot ulcer; 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 Code(s): E08.621 - Diabetes mellitus due to underlying condition with foot ulcer; L97.519 - Non-pressure chronic ulcer of other part of right foot with unspecified severity Status: Acute Assessment and Plan: Follow-up in outpatient setting (5) Presence of combination internal cardiac defibrillator (ICD) and pacemaker: Code(s): Z95.810 - Presence of automatic (implantable) cardiac defibrillator Status: Acute Assessment and Plan: Continue to monitor (6) CHF (congestive heart failure): Qualifiers: Heart failure chronicity: unspecified Heart failure type: unspecified Qualified Code(s): I50.9 - Heart failure, unspecified Code(s): I50.9 - Heart failure, unspecified Status: Acute Assessment and Plan: Appears to be euvolemic Continue to monitor Follow-up in outpatient setting DS: Summary Hospital Course Reason for hospitalization: Worsening right foot ulcer Hospital Course: This is a 69-year-old male with past medical history significant for type 2 diabetes mellitus ischemic cardiomyopathy implanted AICD patient presented to the emergency room due to right lower extremity foot ulcer nonhealing worsening and purulent discharge. Consults obtained: Orthopedic surgery, id and psychiatry. Procedures done: Patient had a ray amputation, excisional debridement of right diabetic foot ulcer with excision of osteomyelitis right 5th metatarsal. Description of procedure: Indications: Patient is a 69-year-old gentleman with diabetes and neuropathy previous right 3rd metatarsal osteomyelitis treated with 3rd ray amputation. Was followed in the Wound Clinic for postoperative wound and developed new ulcer on the lateral aspect of the foot. Obvious osteomyelitis of the 5th metatarsal. He presents now for operative treatment. Patient was also seen by Psychiatry due to patient having some delusions please see psych consult elsewhere. Id expressed no need of antibiotics upon discharge contacted prior to discharging patient Patient adamantly declining is need placement arrangements were made for home with home health. Status at Discharge Cognitive/behavioral status at discharge: AAOX3 Functional status at discharge: uses cane/walker Time Spent with Patient Time attestation: Total time spent providing and/or coordinating discharge services: Time spent: Greater than 30 minutes Exam Narrative: Exam Narrative: Sitting in bed in no acute distress Const: General: comfortable, no acute distre
[2020-08-02 16:59] LABS: Glucose Point of Care 252 (65-105)
[2020-08-02] MEDS: INSULIN ASPART (*BKC) 100 UNITS/ML SUB-Q (17:00)
== END 2020-08-02 17:51 | disposition home health service (06) | DRG 623 ==
PROVIDERS: Nurse Practitioner; Orthopaedic Surgery; Admitting Provider Internal Medicine; PCP Family Medicine; Visit Provider Internal Medicine
PROC: 0KBV0ZZ Excision of Right Foot Muscle, Open Approach (ICD-10-PCS; principal; 2020-07-30 15:00)
DX: E11.69 Type 2 diabetes mellitus with other specified complication (principal); I42.8 Other cardiomyopathies; M86.171 Other acute osteomyelitis, right ankle and foot; I44.2 Atrioventricular block, complete; E11.42 Type 2 diabetes mellitus with diabetic polyneuropathy; E11.621 Type 2 diabetes mellitus with foot ulcer; L97.514 Non-pressure chronic ulcer of other part of right foot with necrosis of bone; E11.51 Type 2 diabetes mellitus with diabetic peripheral angiopathy without gangrene; I11.0 Hypertensive heart disease with heart failure; I50.9 Heart failure, unspecified; F32.89 Other specified depressive episodes; E78.5 Hyperlipidemia, unspecified; E55.9 Vitamin D deficiency, unspecified; Z95.810 Presence of automatic (implantable) cardiac defibrillator; Z79.4 Long term (current) use of insulin; Z79.82 Long term (current) use of aspirin; Z88.0 Allergy status to penicillin
CPT/HCPCS: 36415; 73630; 80048; 80053; 80202; 82565; 82948; 83036; 83605; 83735; 84443; 85025; 87040; 87070; 87205; 97110; 97116; 97161; 97166; 97530; 97535; 99213; A9270; G0463; J0696; J0743; J1815; J2250; J2704; J3010; J3370; J7042; J7120

== ENCOUNTER 2020-09-02 07:24 | Outpatient (RCR) | payer MEDICARE, MEDICAID, SELFPAY ==
--- NOTE | 2020-06-10 11:04 | PM.PNORT ---
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 Patient has been followed by Infectious Disease with IV antibiotics since the date of discharge. He has also establish care with his primary care physician and has been residing at [facility]. Daily dressing changes have been performed by the nursing staff including silver gel, 4 x 4, Kerlix and Wang wrap. The patient is PWB with a postop shoe on the heel of the right foot. Wound with mild improvement in appearance in regards the depth of the wound bed. 90% slough like tissue in 10% new granulation noted in the site of the 3rd ray amputation. Sutures removed from the dorsal and plantar aspect of the right foot. New ulcer /deep tissue injury noted on the lateral aspect of the right 5th metatarsal head. Fourth ray still with concern for viability long-term. Recommended continuation of daily dressing changes and IV antibiotics at this time. We have transition the patient from Silver gel to Santyl. Today we discussed the patient's risk for need for return to the operating room and potential 4th ray amputation. We will continue conservative treatment at this time however if signs or concerns of worsening infection, patient may require more immediate intervention. Patient verbalized understanding agrees with plan of care however is tearful. The patient will follow up in 1 week for re-evaluation. If improvement in new granulation tissue was noted, the patient may be a candidate for debridement and graft application. Continue protected weight-bearing with postop shoe. Patient follow-up in 1 week for re-evaluation. (2) Diabetes mellitus: Qualifiers: Diabetes mellitus type: type 2 Diabetes mellitus [facility] insulin use: without intermediate card tender use Diabetes mellitus complication status: without complication Qualified Code(s): E11.9 - Type 2 diabetes mellitus without complications Code(s): E11.9 - Type 2 diabetes mellitus without complications Status: Acute (3) Acute osteomyelitis of toe of right foot: Code(s): M86.171 - Other acute osteomyelitis, right ankle and foot Status: Acute Assessment and Plan: Patient to continue IV antibiotics under the direction of Dr. Levy until July 01, 2020. Labs and antibiotic treatment per Dr. Levy at this time. Additional Plan Reviewed importance of diabetic diet and optimal to traction for overall healing. Patient verbalized understanding and agrees with plan of care. 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 Patient is 2 weeks, 6 days status post 3rd ray amputation. He is currently residing at [facility]. He continues on IV antibiotics untill July 01, [address] Levy. Patient has no new complaints. He is concerned about his diet diabetic care at his nursing facility as he feels they do not provide a diabetic diet. Otherwise no concerns. Review of Systems Review of Systems: All systems reviewed & are unremarkable except as noted in HPI and below Constitutional: Constitutional: Reports no additional constitutional complaints, Denies chills and De
--- NOTE | 2020-06-10 11:17 | P.OPB_ITS ---
Procedure Note - Brief Procedure Note - Brief Date of procedure: 06/10/20 Pre-op diagnosis: diabetic right foot ulcer Right diabetic ulcer. Post-op diagnosis: same Procedure performed: Debridement of right diabetic foot ulcer and postoper ative wound dehiscence. Description of procedure: Debridement of the skin, subcutaneous tissue and muscle debrided under sterile conditions with #15 blade knife. All devitalized tissue including muscle removed. Procedure tolerated well. Anesthesia: none Surgeon: ALIZA Astudillo Estimated blood loss (mL): 0 Tourniquet time (min): 0 IV fluids (mL): 0 Urine output (mL): 0 Drains: No Packing: Yes (santyl/gauze packing ) Pathology: none sent Complications: No immediate complications Condition: stable Disposition: same day
[2020-06-10 15:25] VITALS: BMI 24.0
--- NOTE | 2020-06-17 16:41 | PM.PNORT ---
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 Mild improvement in dimensions in granulation noted today. See assessment for exact dimensions. Patient to continue daily dressing changes with Santyl, ABD pad and gauze pads, wrapped with Kerlix and an Wang bandage. Patient to apply Santyl to the 4th dorsal toe and 5th toe wound beds. He should paint the dry necrotic areas with Betadine daily. [facility] orders dispensed a patient today for assistance with daily dressing changes. Patient to continue IV antibiotics under the direction of Dr. levy. Today we reviewed the patient's risk for need for return to the operating room and potential 4th ray amputation. We will continue conservative treatment at this time however if signs or concerns of worsening infection, patient may require more immediate intervention. Patient verbalized understanding agrees with plan of care. The patient will follow up in 1 week for re-evaluation. If improvement in new granulation tissue was noted, the patient may be a candidate for debridement and graft application. Continue protected weight-bearing with postop shoe. Patient follow-up in 1 week for re-evaluation. (2) Diabetes mellitus: Qualifiers: Diabetes mellitus type: type 2 Diabetes mellitus prison insulin use: without prison use Diabetes mellitus complication status: without complication Qualified Code(s): E11.9 - Type 2 diabetes mellitus without complications Code(s): E11.9 - Type 2 diabetes mellitus without complications Status: Acute Assessment and Plan: Reviewed importance of diabetic diet and proper nutrition for optimal healing. Glucerna supplements added to patient's daily care. Order dispensed to [facility] (3) Acute osteomyelitis of toe of right foot: Code(s): M86.171 - Other acute osteomyelitis, right ankle and foot Status: Acute Assessment and Plan: Patient to continue IV antibiotics under the direction of Dr. Levy until July 01, 2020. Labs and antibiotic treatment per Dr. Levy at this time. Additional Plan Reviewed importance of diabetic diet and optimal to traction for overall healing. Patient verbalized understanding and agrees with plan of care. Subjective Subjective Date/Time Seen: 06/17/20 0845 59-year-old male presents to the [facility] today 3 weeks, 6 days status post 3rd ray amputation for postoperative wound check. Patient denies fever, chills, night sweats, nausea, vomiting or diarrhea. He is currently residing in a alf facility in undergoing daily dressing changes. Aside from complaints about his at the alf facility and lack of protein, he has no new complaints. Review of Systems Review of Systems: All systems reviewed & are unremarkable except as noted in HPI and below Constitutional: Constitutional: Reports no additional constitutional complaints, Denies chills and Denies weakness Cardiovascular: Cardiovascular: Denies chest pain Respiratory: Respiratory: Denies dyspnea Gastrointestinal: Gastrointestinal: Denies abdominal pain, Denies nausea and Denies vomiting Genitourinary: Genitourinary: Reports no additional male genitourinary complaints Musculoskeletal: Muscu
--- NOTE | 2020-06-24 09:27 | PM.PNORT ---
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 Mild improvement in dimensions in granulation noted today. See assessment for exact dimensions. Patient to continue daily dressing changes with Santyl, ABD pad and gauze pads, wrapped with Kerlix and an Wang bandage. Patient to apply Santyl to the 4th dorsal toe and 5th toe wound beds. He should paint the dry necrotic areas with Betadine daily. [facility] orders dispensed a patient today for assistance with daily dressing changes. Patient to continue IV antibiotics under the direction of Dr. Levy. Indicated for debridement of the right foot ulcer as well as necrotic areas of the 5th and 4th toes. Continue protected weight-bearing with postop shoe. Patient follow-up in 1 week for re-evaluation. Discussed nonoperative and operative treatment options with the patient. Risks and benefits of each as well as alternatives were reviewed. All of the patient's questions were answered. The risks of surgery reviewed including but not limited to: Neurovascular damage, wound complication, infection, blood clot, pulmonary embolus, stroke, myocardial infarction, and anesthetic risks up to and including . Continued pain and possible dysfunction were explained. Specific risks of the procedure including later recurrence of deformity. No guarantees were offered. If complications occur, the patient understands the need for further treatment, possible further surgery. Patient verbalizes understanding and wishes to proceed. PLAN: Excisional debridement of right foot, 4th and 5th toes. (2) Diabetes mellitus: Qualifiers: Diabetes mellitus type: type 2 Diabetes mellitus intermediate insulin use: without intermediate use Diabetes mellitus complication status: without complication Qualified Code(s): E11.9 - Type 2 diabetes mellitus without complications Code(s): E11.9 - Type 2 diabetes mellitus without complications Status: Acute Assessment and Plan: Reviewed importance of diabetic diet and proper nutrition for optimal healing. Glucerna supplements added to patient's daily care. Order dispensed to [facility] (3) Acute osteomyelitis of toe of right foot: Code(s): M86.171 - Other acute osteomyelitis, right ankle and foot Status: Acute Assessment and Plan: Patient to continue IV antibiotics under the direction of Dr. Levy until July 01, 2020. Labs and antibiotic treatment per Dr. Levy at this time. Additional Plan Reviewed importance of diabetic diet and optimal to traction for overall healing. Patient verbalized understanding and agrees with plan of care. Subjective Subjective Date/Time Seen: 06/24/20 09:27 Post Op day: [facility] Principal diagnosis: right diabetic foot ulcer with osteomyelitis Interval history: 5 weeks status post right 3rd ray amputation. Patient continues at [facility] facility with IV antibiotics and daily dressing changes. No interval complaints. Review of Systems Constitutional: Constitutional: Reports as per HPI, Reports no additional constitutional complaints, Denies chills, Denies fatigue, Denies fever(s), Denies weakness and Reports other (dizziness) Eyes: Eyes: Reports no additional eye complaints, Denies change in vision and Denie
--- NOTE | 2020-06-24 09:32 | PM.PROC ---
Procedure Note - Detailed Date of procedure: 06/24/20 Pre-op diagnosis: diabetic right foot ulcer Post-op diagnosis: same Procedure performed: Excisional debridement of right diabetic foot ulcer skin subcu, muscle, 4th and 5th toes. Description of procedure: Indications: Patient is a 69-year-old gentleman who is 5 weeks status post right 3rd ray amputation. Complicated by postoperative wound dehiscence. Now requiring debridement. What was done: Patient identified in the preoperative holding. Informed consent given. Operative extremity marked. Patient received intravenous antibiotics. Time-out performed confirming the patient, site of the surgery and the plan. Right foot prepped with alcohol prep solution. Fifteen blade knife used to sharply excise skin, subcutaneous tissue, devitalized muscle and tendon from the wound bed which measures 11 by 3.5 cm. Good bleeding healthy tissue noted at the surrounding wound bed. Necrotic cap from the 5th and 4th toes removed down to viable tissue including skin and subcutaneous tissue. hemostasis obtained with pressure. Patient tolerated without incident. Sterile dressing applied. Anesthesia: none Surgeon: Ken Alva MD Estimated blood loss (mL): 2 Drains: No Packing: Yes Pathology: none sent Complications: None Condition: stable Disposition: other ( Return skilled nursing)
--- NOTE | 2020-07-01 13:10 | PM.PNORT ---
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 Mild improvement in dimensions in regards to granulation noted today. Measurements improving as well. Patient would benefit from graft application today for expediting wound care and healing. Amniotic cell graft applied today under sterile conditions of the right wound bed, covered with Mepitel 1 dressing. Gauze dressing in place as well as ABD pad. Patient should keep dressing in place for approximately 48 hours and then resume dressing changes with Santyl to all areas of wound bed, gauze pads and ABD as well as wrapping with Kerlix. Patient will be discharged from [facility] tomorrow. He will then have [facility]. He understands the need for self dressing changes as well. [facility] to be at his house on to do his initial dressing change. We will then see him in approximately 1 week for re-evaluation at which point we will determine need for further graft application approximately 2 weeks from this time. Recommended patient to continue protected weight-bearing with a postop shoe in the interim. Follow up in 1 week. (2) Diabetes mellitus: Qualifiers: Diabetes mellitus type: type 2 Diabetes mellitus assisted insulin use: without computer terminal operator use Diabetes mellitus complication status: without complication Qualified Code(s): E11.9 - Type 2 diabetes mellitus without complications Code(s): E11.9 - Type 2 diabetes mellitus without complications Status: Acute Assessment and Plan: Patient to continue proper nutrition in diabetic diet for optimal healing at home. Recommended continuation of nutritional supplements as well. (3) Acute osteomyelitis of toe of right foot: Code(s): M86.171 - Other acute osteomyelitis, right ankle and foot Status: Acute Assessment and Plan: Patient has completed IV antibiotics under the direction of Dr. ayala. There was a discussion regarding continuation of oral antibiotics but Dr. ayala did not feel that was necessary. The patient will be discharged from [facility] tomorrow. He will go home with [facility] to facilitate dressing changes. He will also follow up in the [place] [facility]. Additional Plan Reviewed importance of diabetic diet and optimal to traction for overall healing. Patient verbalized understanding and agrees with plan of care. Subjective Subjective Date/Time Seen: 07/01/20 13:10 69-year-old male presents [place] [facility] today for re-evaluation of right foot wound. Patient is 5 weeks, 6 days status post 3rd ray amputation. He continues to perform daily dressing changes with Santyl to the wound bed. He just finished IV antibiotics under the direction of Dr. ayala. He denies fever, chills, night sweats, nausea, vomiting or diarrhea. No new concerns. Tolerating dressing changes well. Review of Systems Constitutional: Constitutional: Reports as per HPI, Reports no additional constitutional complaints, Denies chills, Denies fatigue, Denies fever(s), Denies weakness and Reports other (dizziness) Eyes: Eyes: Reports no additional eye complaints, Denies change in vision and Denies loss of vision ENT: Reports system reviewed and no add
--- NOTE | 2020-07-01 13:18 | PM.OP ---
Procedure Note - Brief Procedure Note - Brief Date of procedure: 07/01/20 Pre-op diagnosis: diabetic right foot ulcer Right diabetic foot ulcer Post-op diagnosis: same Procedure performed: amnioexcell graft application Description of procedure: Amnioexcel graft application applied to the right foot wound bed under sterile conditions. Tissue ID: [id number], Size 2x3cm, Product ID: [id number], Expiration: 06/11/2024. Mepitel ONE dressing placed over wound beds. Covered with gauze dressing, ABD pad and wrapped with Kerlex. Anesthesia: none Surgeon: ALIZA Astudillo Estimated blood loss (mL): 0 Tourniquet time (min): 0 IV fluids (mL): 0 Urine output (mL): 0 Drains: No Packing: No Pathology: none sent Complications: No immediate complications Condition: stable Disposition: same day
--- NOTE | 2020-07-08 09:15 | PM.PNORT ---
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 1 week s/p graft application to the right 3rd/4th interspace. Mild improvement in dimensions in regards to granulation noted today. Measurements with improvement as well. Debridement performed on the lateral aspect of the right 5th met head. Debridement of the skin, subcutaneous tissue and muscle debrided under sterile conditions with #15 blade knife. All devitalized tissue including muscle removed. Procedure tolerated well. Recommended application of silver gel to all wound beds at this time given good healthy granulation tissue. Dressing changes to be performed daily. Patient may was foot with soap/water. Continue PWB with post op shoe. Follow up in 1 week for reevaluation and repeat graft application. 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 Recommended continuation of nutritional supplements as well. (3) Acute osteomyelitis of toe of right foot: Code(s): M86.171 - Other acute osteomyelitis, right ankle and foot Status: Acute Assessment and Plan: Patient has completed IV antibiotics under the direction of Dr. Levy and been discharge home. Family performing daily dressing changes as well as home health. Additional Plan Reviewed importance of diabetic diet and optimal nutritioin for overall healing. Patient verbalized understanding and agrees with plan of care. Subjective Subjective Date/Time Seen: 07/08/20 09:15 69-year-old male presents [place] [facility] today for re-evaluation of right foot wound. Patient is 6 weeks, 6 days status post 3rd ray amputation and 1 week s/p Amnioexcel graft application. He continues to perform daily dressing changes with Santyl to the wound bed s/p 48 hour hiatus after graft application. He just finished IV antibiotics under the direction of Dr. levy and was discharge home from [facility]. His niece's friend is performing daily dressing changes. He denies fever, chills, night sweats, nausea, vomiting or diarrhea. No new concerns. Tolerating dressing changes well. Review of Systems Constitutional: Constitutional: Reports as per HPI, Reports no additional constitutional complaints, Denies chills, Denies fatigue, Denies fever(s), Denies weakness and Reports other (dizziness) Eyes: Eyes: Reports no additional eye complaints, Denies change in vision and Denies loss of vision ENT: Reports system reviewed and no additional complaints, except as documented, Denies dysphagia, Denies dizziness, Denies dry mouth, Denies hearing loss and Denies lip swelling Cardiovascular: Cardiovascular: Reports no additional cardiovascular complaints, Denies chest pain, Denies syncope, Denies radiating jaw, neck or arm pain, Denies dyspnea and Denies dyspnea on exertion Respiratory: Respiratory: Reports no additional respiratory complaints, Denies cough, D
--- NOTE | 2020-07-15 12:33 | PM.PNORT ---
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 He is now 2 weeks status post graft application to the interspace between the 2nd and 4th ray, at the site of the previous 3rd ray amputation. Interspace wound with improvement in dimensions however right lateral wound over the 5th metatarsal head with increasing necrosis and obvious pressure. No redness or warmth. No malodor. Mild surrounding swelling. No purulence. Inability to probe to bone. Patient sent to the outpatient orthopedic clinic for radiographs. Radiographs reveal no obvious lucency consistent with new onset osteomyelitis our patient is understanding of his potential risk. Culture obtained from that site. Patient started on antibiotic regimen orally. Reviewed signs and symptoms of worsening wound to report to the emergency room immediately. Patient will follow up in 2 days for re-evaluation of wound bed in the outpatient orthopedic clinic. Patient to continue daily dressing changes at this time. We will refrain from repeat graft application pending additional evaluation of the right lateral forefoot wound. Recommended silver gel to the interspace incision wound and Santyl to the lateral aspect of the 5th metatarsal head. Recommended patient refrain from vigorous activity and keep his foot elevated as frequently as possible. Recommended patient to be fit with a fracture boot for additional pressure offloading. Patient fit with fracture boot in the outpatient orthopedic clinic. Follow up in 2 days. (2) Diabetes mellitus: Qualifiers: Diabetes mellitus type: type 2 Diabetes mellitus supervisor intermediates insulin use: without nursing home use Diabetes mellitus complication status: without complication Qualified Code(s): E11.9 - Type 2 diabetes mellitus without complications Code(s): E11.9 - Type 2 diabetes mellitus without complications Status: Acute Assessment and Plan: Patient to continue proper nutrition in diabetic diet for optimal healing at home. Recommended continuation of nutritional supplements as well. (3) Acute osteomyelitis of toe of right foot: Code(s): M86.171 - Other acute osteomyelitis, right ankle and foot Status: Acute Assessment and Plan: Patient has completed IV antibiotics under the direction of Dr. Levy and been discharge home. Family performing daily dressing changes as well as home health. Recommended patient initiate oral antibiotics at this time. Culture obtained from the lateral aspect of the right foot today However in order to initiate antibiotic regimen, right foot cultures from May reviewed. Right foot cultures at that time revealed Light growth of Bacteroides fragilis group. Patient was prescribed Flagyl and Keflex today. Reviewed need for patient to abstain from any alcohol use while on Flagyl. We also discussed the potential cross sensitivity with Keflex however the patient says that his penicillin allergy is mild tingling in the hands and nose. Medication called to the patient's pharmacy, patient aware. Additional Plan Reviewed importance of diabetic diet and optimal nutritioin for overall healing. Patient verbalized understanding and agrees with plan of care. Subjective Subjective Date/Time Seen: 07/15/20 12:33 69-year-ol
--- NOTE | 2020-07-22 12:28 | PM.PNORT ---
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 to wound clinic today for re-evaluation of right foot wounds. He is now 2.5 weeks status post graft application to the interspace between the 2nd and 4th ray, at the site of the previous 3rd ray amputation. Interspace wound with improvement in dimensions however right lateral wound over the 5th metatarsal head with increasing necrosis and obvious pressure. No worsening redness or warmth. No malodor. Mild surrounding swelling. No purulence. No visible bone however large amount of necrotic tissue which was debrided today under sterile conditions with 15 blade knife. Patient has completed his course of oral antibiotics. No obvious signs of worsening cellulitis at this time. Recommend continuation of oral antibiotics and addition of Levaquin. Patient is no longer on Coumadin. Patient to continue daily dressing changes at this time With Santyl and silver gel to the lateral forefoot and silver gel to the interspace. The patient would benefit from total contact casting however will need to obtain insurance authorization prior. Patient understands potential need for further surgical debridement. We reviewed signs symptoms of worsening infection to report to the hospital immediately. Patient to follow-up in 4 days for re-evaluation. (2) Diabetes mellitus: Qualifiers: Diabetes mellitus type: type 2 Diabetes mellitus alf insulin use: without intermodal dispatcher use Diabetes mellitus complication status: without complication Qualified Code(s): E11.9 - Type 2 diabetes mellitus without complications Code(s): E11.9 - Type 2 diabetes mellitus without complications Status: Acute Assessment and Plan: Patient to continue proper nutrition in diabetic diet for optimal healing at home. Recommended continuation of nutritional supplements as well. (3) Acute osteomyelitis of toe of right foot: Code(s): M86.171 - Other acute osteomyelitis, right ankle and foot Status: Acute Assessment and Plan: Wound cultures with Staph aureus. Continue Keflex an add Levaquin at this time. Stop Flagyl. Patient to follow up on Tuesday for re-evaluation. Subjective Subjective Date/Time Seen: 07/22/20 12:28 69-year-old male follows up today 8 weeks, 6 days status post 3rd ray amputation and 3 weeks status post amniotic cell graft application to remaining wound bed in the interspace between the 2nd and 4th ray. The patient's postoperative course has been complicated by a worsening right lateral diabetic foot ulcer over the 5th metatarsal head. He was evaluated on Tuesday of last week and has been on oral antibiotics for approximately 1 week. Wound culture revealed Staph aureus. Patient has been tolerating Keflex and Flagyl daily without problems. He denies new fever, chills, night sweats, nausea, vomiting or diarrhea. He reports well-maintained blood glucose levels. Review of Systems Constitutional: Constitutional: Reports as per HPI, Reports no additional constitutional complaints, Denies chills, Denies fatigue, Denies fever(s), Denies weakness and Reports other (dizziness) Eyes: Eyes: Reports no additional eye complaints, Denies change in vision and Denies loss of vision ENT: Reports system reviewed and no additional complaints, except as documented, Denies
--- NOTE | 2020-07-22 12:39 | P.OPB_ITS ---
Procedure Note - Brief Procedure Note - Brief Date of procedure: 07/22/20 Pre-op diagnosis: diabetic right foot ulcer Right lateral diabetic foot ulcer. Procedure performed: Debridement of right diabetic foot ulcer Description of procedure: Debridement of the skin, subcutaneous tissue and muscle debrided under sterile conditions with #15 blade knife. All devitalized tissue including muscle removed. Procedure tolerated well. underlying wound measures 2.5 x 2.9 x 0.5 cm. No visible bone. No purulence. Anesthesia: none Surgeon: ALIZA Astudillo Chief Solution Architect: n/a Estimated blood loss (mL): 0 Tourniquet time (min): 0 IV fluids (mL): 0 Urine output (mL): 0 Drains: No Packing: No Pathology: none sent Complications: No immediate complications Condition: stable Disposition: same day
--- NOTE | 2020-07-25 11:48 | PM.PNORT ---
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 He is now 3 weeks status post graft application to the interspace between the 2nd and 4th ray, at the site of the previous 3rd ray amputation. Interspace wound with improvement in dimensions. Right lateral wound over the 5th metatarsal head with increasing necrosis and obvious pressure. exposed 5th metatarsal head noted at today's dressing change. No malodor. Mild surrounding swelling. No purulence. Patient has completed his course of oral antibiotics. Discussed in detail with patient. Recommend admission to the hospital with further surgical debridement. Patient declined at this time. He is unsure how he wants to proceed with the foot. We discussed chance for worsening of infection and risk of loss of limb. Patient verbalizes understanding. We will continue silver gel and daily dressing changes in the interim. Close follow-up visit with follow-up in 3 days for re-evaluation. Patient may required admission and further surgical treatment at that time if he shows signs of worsening. (2) Acute osteomyelitis of toe of right foot: Code(s): M86.171 - Other acute osteomyelitis, right ankle and foot Status: Acute Assessment and Plan: Wound cultures with Staph aureus. Continue Keflex an add Levaquin at this time. Stop Flagyl. Patient to follow up on Tuesday for re-evaluation. 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 Recommended continuation of nutritional supplements as well. Subjective Subjective Date/Time Seen: 07/25/20 11:48 Principal diagnosis: 8wks Interval history: return visit [facility] outpatient wound clinic for right diabetic foot infection. Worsening of the lateral ulcer noted at the previous visit. Santyl was started and protective weight-bearing with a fracture boot. Patient reports no interval new complaints. Exam Const: General: comfortable and no acute distress Resp: Effort & Inspection: normal respiratory effort Cardio: Rate: regular rate Rhythm: regular rhythm GI: Inspection: non-distended GI Palp: Yes Soft to palpation and No Tenderness to palpation present (GI) Skin: Wounds: wounds noted (Large wound right foot ) Neuro: Cognition (Neuro): normal cognition Extrem: Right lower extremity: foot (see below ) Details: motor-sensory exam Details: two point discrimination abnormal and light-touch abnormal; abnormal capillary refill, abnormal to inspection and no tenderness Other: Unable to palpate pedal pulses. Incision on the dorsal aspect of the right foot in the interspace between the now 2nd and 4th ray with continued improvement, no signs of active infection. Incisional area measures 5x0.7x1.0 cm. Wound bed is 80% red/ pink and 20% slough. Wound on the lateral aspect of the 5th metatarsal head measures 3.0 x 3.3 by
--- NOTE | 2020-07-28 14:56 | PCWOUND ---
WOCN NOTE Patient taken to room 321 in wheelchair. notified RN pt was laying in bed with alarm on.
--- NOTE | 2020-08-05 11:53 | PM.PNORT ---
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 The patient was discharged home with home health. He has been performing daily dressing changes in the interim. Per the discharge summary, it was not determined that the patient would need oral antibiotics upon discharge per Infectious Disease physician Dr. Levy. Given patient's complicated history and recent excision of osteomyelitis we recommended the patient begin oral antibiotics today. Antibiotics called to the patient's pharmacy. Dressing changed today. Patient does have a new ulcer on the lateral aspect of the 5th ray. Recommended silver gel to the lateral 5th ray and silver gel to the interspace of the previous 3rd ray amputation. Patient to place Adaptic over incision line. Patient follow-up in 1 week for re-evaluation. Patient to pickup antibiotics from pharmacy today. (2) Acute osteomyelitis of toe of right foot: Code(s): M86.171 - Other acute osteomyelitis, right ankle and foot Status: Acute Subjective Subjective Date/Time Seen: 08/05/20 11:53 69-year-old male presents today for re-evaluation of right lateral diabetic foot ulcer 6 days status post excisional debridement of right diabetic foot ulcer and excision osteomyelitis of the 5th metatarsal head. Patient was discharged home with home health from [facility]. Per the discharge summary, the patient was not sent home on oral antibiotics under the direction of Dr. Levy is recommendations. He has been performing daily dressing changes in the interim with both home health and family. Review of Systems Constitutional: Constitutional: Reports as per HPI, Reports no additional constitutional complaints, Denies chills, Denies fatigue, Denies fever(s), Denies weakness and Reports other (dizziness) Eyes: Eyes: Reports no additional eye complaints, Denies change in vision and Denies loss of vision ENT: Reports system reviewed and no additional complaints, except as documented, Denies dysphagia, Denies dizziness, Denies dry mouth, Denies hearing loss and Denies lip swelling Cardiovascular: Cardiovascular: Reports no additional cardiovascular complaints, Denies chest pain, Denies syncope, Denies radiating jaw, neck or arm pain, Denies dyspnea and Denies dyspnea on exertion Respiratory: Respiratory: Reports no additional respiratory complaints, Denies cough, Denies dyspnea, Denies dyspnea on exertion and Denies wheezing Gastrointestinal: Gastrointestinal: Reports no additional gastrointestinal complaints, Denies abdominal pain, Denies bloating, Denies change in bowel habits, Denies change in stool character, Denies constipation and Denies dysphagia Genitourinary: Genitourinary: Reports no additional male genitourinary complaints, Denies hematuria and Denies dysuria Musculoskeletal: Musculoskeletal: Reports no additional musculoskeletal complaints, Denies abnormal gait, Denies myalgias, Denies deformity, Denies joint swelling and Denies tingling Integumentary/Breasts: Skin/Breast: Reports system reviewed and no additional complaints, except as docu, Reports as per HPI and Reports other (right 3rd toe discoloration, wound, swelling of right foot) Neurologic: Reports syst
--- NOTE | 2020-08-12 09:01 | PM.PNORT ---
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 The patient has been on oral antibiotics for 7 days. He denies signs or symptoms antibiotic complications. He has been performing daily dressing changes. Dressing change today, no signs of acute infection. Fifth ray still with concern for viability however no longer dusky in appearance. Recommended applying silver gel to the 5th ray and interspace wound between the 2nd and 4th ray. Patient then to apply transfer and gauze dressing. follow-up 1 week for re-evaluation at which point we will remove sutures. Reviewed signs symptoms of infection to report to the emergency room immediately. Patient verbalized understanding agrees with plan care. (2) Acute osteomyelitis of toe of right foot: Code(s): M86.171 - Other acute osteomyelitis, right ankle and foot Status: Acute Assessment and Plan: Continue oral antibiotics at this time. Additional Plan Reviewed importance of diabetic diet and optimal nutritioin for overall healing. Patient verbalized understanding and agrees with plan of care. Subjective Subjective Date/Time Seen: 08/12/20 09:01 69-year-old male presents today [facility] today 1 week, 6 days status post excisional debridement of right diabetic foot ulcer and excision of osteomyelitis in the 5th metatarsal head. Patient denies fever, chills, night sweats, nausea, vomiting or diarrhea. He has been maintaining daily dressing changes with the assistance of home health and his family friend. He has been tolerating oral antibiotics as ordered by the Orthopedic service on August 05. He has a 10 day course and will be completed on the . He denies fever, chills, night sweats, nausea, vomiting or diarrhea. He reports well-maintained blood glucose levels. Review of Systems Constitutional: Constitutional: Reports as per HPI, Reports no additional constitutional complaints, Denies chills, Denies fatigue, Denies fever(s), Denies weakness and Reports other (dizziness) Eyes: Eyes: Reports no additional eye complaints, Denies change in vision and Denies loss of vision ENT: Reports system reviewed and no additional complaints, except as documented, Denies dysphagia, Denies dizziness, Denies dry mouth, Denies hearing loss and Denies lip swelling Cardiovascular: Cardiovascular: Reports no additional cardiovascular complaints, Denies chest pain, Denies syncope, Denies radiating jaw, neck or arm pain, Denies dyspnea and Denies dyspnea on exertion Respiratory: Respiratory: Reports no additional respiratory complaints, Denies cough, Denies dyspnea, Denies dyspnea on exertion and Denies wheezing Gastrointestinal: Gastrointestinal: Reports no additional gastrointestinal complaints, Denies abdominal pain, Denies bloating, Denies change in bowel habits, Denies change in stool character, Denies constipation and Denies dysphagia Genitourinary: Genitourinary: Reports no additional male genitourinary complaints, Denies hematuria and Denies dysuria Musculoskeletal: Musculoskeletal: Reports no additional musculoskeletal complaints, Denies abnormal gait, Denies myalgias, Denies deformity, Denies j
--- NOTE | 2020-08-19 08:41 | PM.PNORT ---
Progress Note: A&P Assessment and Plan (1) Diabetic ulcer of right foot associated with diabetes mellitus due to underlying condition: Qualifiers: Diabetic foot ulcer location: other Non-pressure ulcer stage: with necrosis of bone Qualified Code(s): E08.621 - Diabetes mellitus due to underlying condition with foot ulcer; 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 Code(s): E08.621 - Diabetes mellitus due to underlying condition with foot ulcer; L97.519 - Non-pressure chronic ulcer of other part of right foot with unspecified severity Status: Acute Assessment and Plan: Two weeks, 6 days status post excisional debridement of right diabetic foot ulcer and excision of osteomyelitis in the 5th metatarsal head. Patient has finished his course of oral antibiotics as of today. Denies signs or symptoms of worsening infection. He does have mild edema noted in bilateral lower extremities. Sutures removed over the 5th metatarsal today. Underlying ulcer measures 2.5 x 1 x 0.5 cm, 100% red/ pink wound bed. Original incisional wound dehiscence between the 2nd and 4th ray at the side of the previous 3rd ray amputation site measures 2.8 x 0.6 x 1.3 cm. 100% red/ pink wound bed. Notable new granulation tissue. He has been performing daily dressing changes with the assistance of home health and a family friend. Patient to continue silver gel to all areas of wound beds and cover with transfer and wrapped with Kerlix and Wang bandage. Patient to continue daily dressing changes as of right now. We will follow up in 1 week at which point I would anticipate a repeat graft application in the 3rd interspace pending continued improvement of 5th metatarsal incision wound. Reviewed signs and symptoms of worsening infection to report to the emergency room immediately. Reviewed importance of diabetic diet. Patient to follow-up in 1 week. (2) Acute osteomyelitis of toe of right foot: Code(s): M86.171 - Other acute osteomyelitis, right ankle and foot Status: Acute Assessment and Plan: Patient to finish course of oral antibiotics today. No signs or symptoms of infection right now. We will continue to monitor. Reviewed signs and symptoms of infection to call our office or report to emergency room immediately. Patient verbalized understanding agrees with plan of care. Additional Plan Reviewed importance of diabetic diet and optimal nutritioin for overall healing. Patient verbalized understanding and agrees with plan of care. Subjective Subjective Date/Time Seen: 08/19/20 08:41 A 69-year-old male presents to the [facility] wound clinic today 2 weeks, 6 days status post excisional debridement of right diabetic foot ulcer and excision of osteomyelitis in the 5th metatarsal head. Patient denies fever, chills, night sweats, nausea, vomiting or diarrhea. He does have mild lower extremity edema bilaterally. He has been maintaining daily dressing changes with the assistance of home health and his family friend. He is tolerating oral antibiotics as ordered by the Orthopedic service and will complete those today. He reports well-maintained blood glucose levels and has no new concerns today. Review of Systems Constitutional: Constitutional: Reports as per HPI, Reports no additional constitutional complaints, Denies chills, Denies fatigue, Denies fever(s), Denies weakness and Reports other (dizziness) Eyes: Eyes: Reports no additional eye complaints, Denies change in vision and Denies loss of vision ENT: Reports system reviewed and no additional complaints, except as documented, Denies dysphagia, Denies dizziness, Denies dry mouth, Denies hearing loss and Denies lip swelling Cardiovascular: Cardiovascular: Reports no additional cardiovascular complaints, Denies chest pain, Denies syncope, Denies radiating jaw, neck or arm pain, Denies dyspnea and Denies dyspnea on exertion Respiratory: Respira
--- NOTE | 2020-08-26 08:37 | PM.PNORT ---
Progress Note: A&P Assessment and Plan (1) Diabetic ulcer of right foot associated with diabetes mellitus due to underlying condition: Qualifiers: Diabetic foot ulcer location: other Non-pressure ulcer stage: with necrosis of bone Qualified Code(s): E08.621 - Diabetes mellitus due to underlying condition with foot ulcer; 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 Code(s): E08.621 - Diabetes mellitus due to underlying condition with foot ulcer; L97.519 - Non-pressure chronic ulcer of other part of right foot with unspecified severity Status: Acute Assessment and Plan: 3 weeks, 6 days status post excisional debridement of right diabetic foot ulcer excision of osteomyelitis in the 5th metatarsal head. Patient with continued improvement in wound dimensions today. He would benefit from graft application for expedited wound healing. Graft applied to the interspace between the 2nd and 4th ray and on the lateral aspect of the 5th metatarsal head at the incision site which has some mild dehiscence. All wound beds 100% red/ pink. No signs of active infection. Graft applied and covered with a Mepitel One dressing. Wounds covered with gauze and an ABD pad. Patient to keep dressing in place for the next 48 hours and return to dressing changes as usual. Continue home health for dressing changes distance at this time. Patient to follow-up in 1 week for re-evaluation. If the patient responds well to graft application and shows notable wound healing, we will repeat graft application in 2 weeks. Patient is no longer on antibiotics. Patient to follow-up in 1 week for re-evaluation. (2) Acute osteomyelitis of toe of right foot: Code(s): M86.171 - Other acute osteomyelitis, right ankle and foot Status: Acute Assessment and Plan: No signs of acute infection at this time. Additional Plan Reviewed importance of diabetic diet and optimal nutritioin for overall healing. Patient verbalized understanding and agrees with plan of care. Subjective Subjective Date/Time Seen: 08/26/20 08:37 69 year old male presents today [facility] today for re-evaluation of right diabetic foot wounds. Patient denies fever, chills, night sweats, nausea, vomiting or diarrhea. He is maintaining daily dressing changes with the assistance of a family member and [facility]. Patient has no new concerns today and feels that he is improving greatly. Review of Systems Constitutional: Constitutional: Reports as per HPI, Reports no additional constitutional complaints, Denies chills, Denies fatigue, Denies fever(s), Denies weakness and Reports other (dizziness) Eyes: Eyes: Reports no additional eye complaints, Denies change in vision and Denies loss of vision ENT: Reports system reviewed and no additional complaints, except as documented, Denies dysphagia, Denies dizziness, Denies dry mouth, Denies hearing loss and Denies lip swelling Cardiovascular: Cardiovascular: Reports no additional cardiovascular complaints, Denies chest pain, Denies syncope, Denies radiating jaw, neck or arm pain, Denies dyspnea and Denies dyspnea on exertion Respiratory: Respiratory: Reports no additional respiratory complaints, Denies cough, Denies dyspnea, Denies dyspnea on exertion and Denies wheezing Gastrointestinal: Gastrointestinal: Reports no additional gastrointestinal complaints, Denies abdominal pain, Denies bloating, Denies change in bowel habits, Denies change in stool character, Denies constipation and Denies dysphagia Genitourinary: Genitourinary: Reports no additional male genitourinary complaints, Denies hematuria and Denies dysuria Musculoskeletal: Musculoskeletal: Reports no additional musculoskeletal complaints, Denies abnormal gait, Denies myalgias, Denies deformity, Denies joint swelling and Denies tingling Integumentary/Breasts: Skin/Breast: Reports system reviewed and no addition
--- NOTE | 2020-08-26 08:59 | PM.OP ---
Procedure Note - Brief Procedure Note - Brief Date of procedure: 08/26/20 Pre-op diagnosis: diabetic right foot ulcer Right diabetic foot ulcer Post-op diagnosis: same Procedure performed: Amniotic cell graft application Description of procedure: Amnioexcel graft application performed today to fit the interspace and lateral foot wound on the right foot. Graft information as follows: Tissue ID: [id number], Size: [id number], Product ID: [id number], Expiration Date: 06/14/2024 Graft applied under sterile conditions, Mepitel One applied. Implants: Amnioexcel graft application Anesthesia: none Surgeon: ALIZA Astudillo Estimated blood loss (mL): 0 Tourniquet time (min): 0 IV fluids (mL): 0 Urine output (mL): 0 Drains: No Packing: No Pathology: none sent Complications: No immediate complications Condition: stable Disposition: same day
--- NOTE | 2020-09-02 12:27 | PM.PNORT ---
Progress Note: A&P Assessment and Plan (1) Diabetic ulcer of right foot associated with diabetes mellitus due to underlying condition: Qualifiers: Diabetic foot ulcer location: other Non-pressure ulcer stage: with necrosis of bone Qualified Code(s): E08.621 - Diabetes mellitus due to underlying condition with foot ulcer; 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 Code(s): E08.621 - Diabetes mellitus due to underlying condition with foot ulcer; L97.519 - Non-pressure chronic ulcer of other part of right foot with unspecified severity Status: Acute Assessment and Plan: 4 weeks, 6 days status post excisional debridement of right diabetic foot ulcer excision of osteomyelitis in the 5th metatarsal head and 1 week s/p amnioexcel graft application. Patient with continued improvement in wound dimensions today. No new signs of infection. Graft appears to be incorporating well. Patient to resume daily dressing changes with silver gel, gauze and transfer dressing. Patient to utilize an ABD pad and tubigrip. Patient follow-up in 1 week for re-evaluation at which point we will proceed with graft application if wound beds are still open. Recommended protected weight-bearing of the right lower extremity with a fracture shoe. (2) Acute osteomyelitis of toe of right foot: Code(s): M86.171 - Other acute osteomyelitis, right ankle and foot Status: Acute Assessment and Plan: No signs of acute infection at this time. Additional Plan Reviewed importance of diabetic diet and optimal nutritioin for overall healing. Patient verbalized understanding and agrees with plan of care. Subjective Subjective Date/Time Seen: 09/02/20 12:27 Interval history: 69-year-old male presents they [facility] wound clinic today 4 weeks, 6 days status post excisional debridement of right diabetic foot ulcer with excision of osteomyelitis from the 5th metatarsal head and 1 week status post amniotic cell graft application. Patient denies fever, chills, night sweats, nausea, vomiting or diarrhea. No new signs of infection. He has been tolerating dressing changes which he began 3 days status post graft application. He continues to have home health on board for assistance with dressing changes. He is not currently on antibiotic therapy. Review of Systems Constitutional: Constitutional: Reports as per HPI, Reports no additional constitutional complaints, Denies chills, Denies fatigue, Denies fever(s), Denies weakness and Reports other (dizziness) Eyes: Eyes: Reports no additional eye complaints, Denies change in vision and Denies loss of vision ENT: Reports system reviewed and no additional complaints, except as documented, Denies dysphagia, Denies dizziness, Denies dry mouth, Denies hearing loss and Denies lip swelling Cardiovascular: Cardiovascular: Reports no additional cardiovascular complaints, Denies chest pain, Denies syncope, Denies radiating jaw, neck or arm pain, Denies dyspnea and Denies dyspnea on exertion Respiratory: Respiratory: Reports no additional respiratory complaints, Denies cough, Denies dyspnea, Denies dyspnea on exertion and Denies wheezing Gastrointestinal: Gastrointestinal: Reports no additional gastrointestinal complaints, Denies abdominal pain, Denies bloating, Denies change in bowel habits, Denies change in stool character, Denies constipation and Denies dysphagia Genitourinary: Genitourinary: Reports no additional male genitourinary complaints, Denies hematuria and Denies dysuria Musculoskeletal: Musculoskeletal: Reports no additional musculoskeletal complaints, Denies abnormal gait, Denies myalgias, Denies deformity, Denies joint swelling and Denies tingling Integumentary/Breasts: Skin/Breast: Reports system reviewed and no additional complaints, except as docu, Reports as per HPI and Reports other (right 3rd toe discoloration, wound, swelling of right foot) Neurolo
== END 2020-09-08 23:59 | disposition home or self-care (01) ==
LOC: ANHWOC 07:24
PROVIDERS: PCP Family Medicine; Visit Provider Nurse Practitioner Family
DX: E11.621 Type 2 diabetes mellitus with foot ulcer (principal); L97.519 Non-pressure chronic ulcer of other part of right foot with unspecified severity
CPT/HCPCS: 11042; 15275; 87070; 87077; 87147; 87181; 87186; 87205; 99212; 99213; A9270; G0463; Q4137

== ENCOUNTER 2020-11-04 07:20 | Outpatient (RCR) | payer MEDICARE, MEDICAID, SELFPAY ==
[2020-09-09 00:04] VITALS: BMI 24.0
--- NOTE | 2020-09-09 12:07 | PM.IMHP ---
H&P: HPI History of Present Illness Date/Time: 09/09/20 12:07 Chief Complaint: Right diabetic foot ulcer Narrative: 69-year-old male presents to the [facility] wound clinic today for re-evaluation of right diabetic foot ulcer and postoperative wound dehiscence. Patient denies fever, chills, night sweats, nausea or diarrhea. No reported worsening of wounds. He underwent a graft application 2 weeks ago. He reports improvement in dimensions her home health nurse. No new concerns today. Review of Systems Constitutional: Constitutional: Reports as per HPI, Reports no additional constitutional complaints, Denies chills, Denies fatigue, Denies fever(s), Denies weakness and Reports other (dizziness) Eyes: Eyes: Reports no additional eye complaints, Denies change in vision and Denies loss of vision ENT: Reports system reviewed and no additional complaints, except as documented, Denies dysphagia, Denies dizziness, Denies dry mouth, Denies hearing loss and Denies lip swelling Cardiovascular: Cardiovascular: Reports no additional cardiovascular complaints, Denies chest pain, Denies syncope, Denies radiating jaw, neck or arm pain, Denies dyspnea and Denies dyspnea on exertion Respiratory: Respiratory: Reports no additional respiratory complaints, Denies cough, Denies dyspnea, Denies dyspnea on exertion and Denies wheezing Gastrointestinal: Gastrointestinal: Reports no additional gastrointestinal complaints, Denies abdominal pain, Denies bloating, Denies change in bowel habits, Denies change in stool character, Denies constipation and Denies dysphagia Genitourinary: Genitourinary: Reports no additional male genitourinary complaints, Denies hematuria and Denies dysuria Musculoskeletal: Musculoskeletal: Reports no additional musculoskeletal complaints, Denies abnormal gait, Denies myalgias, Denies deformity, Denies joint swelling and Denies tingling Integumentary/Breasts: Skin/Breast: Reports system reviewed and no additional complaints, except as docu, Reports as per HPI and Reports other (right 3rd toe discoloration, wound, swelling of right foot) Neurologic: Reports system reviewed and no additional complaints, except as documented, Denies confusion, Reports dizziness and Denies tingling Psychiatric: Psychiatric: Reports no additional psychiatric complaints, Denies anxiety, Denies confusion and Denies depression PMFSH Past Medical History Medical History Apical mural thrombus CHF (congestive heart failure) Echo 07/13/19 showing EF 20-25%, dilated LV, inferapical thrombus, diastolic dysfunction (E/e' 26), mod LAE, mild-mod TR. 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 Sibling Acute myocardial infarction Mother Lung cancer Social History Social History Social History: The patient was discharged to [facility] status post previous hospitalization in May. He was discharged from there around July 01 at the completion of his IV antibiotics and has been living with his [id number] and his niece. Dressing changes have been performed by his niece's cousin daily. He has not returned to his home since his last pr
--- NOTE | 2020-09-16 08:41 | PM.PNORT ---
Subjective Subjective Date/Time Seen: 09/16/20 08:41 69-year-old male presents to [facility] wound clinic today 6 weeks, 2 days status post excisional debridement of right diabetic foot ulcer with excision of osteomyelitis from the 5th metatarsal head and 1 week status post amniotic cell graft application. Patient denies fever, chills, night sweats, nausea, vomiting or diarrhea. No new signs of infection. He has been tolerating dressing changes which he began 3 days status post graft application. He continues to have home health on board for assistance with dressing changes. He is not currently on antibiotic therapy. Objective Data Meds/Results Medications: Active Medications Generic Name Dose Route Start Last Admin Trade Name Freq PRN Reason Stop Dose Admin Silver Nitrate 1 applic 09/09/20 14:10 Silvergel (Elta) 45 Ml TOPICAL 12/10/20 23:59 PRN PRN Wound Care Wound Care/Dressing Products 1 patch 09/09/20 14:10 Mepilex Transfer Drsg 6x8 TOPICAL 12/10/20 23:59 PRN PRN Wound Care
--- NOTE | 2020-09-16 08:42 | PM.IMHP ---
H&P: HPI History of Present Illness Date/Time: 09/16/20 08:43 Chief Complaint: Left DFU Narrative: 69-year-old male presents to the [facility] wound clinic today for re-evaluation of right diabetic foot ulcer and postoperative wound dehiscence. Patient denies fever, chills, night sweats, nausea or diarrhea. No reported worsening of wounds. He underwent a graft application 1 week ago. He reports improvement in dimensions her home health nurse. No new concerns today. Anxious to get back to work. Review of Systems Constitutional: Constitutional: Reports as per HPI, Reports no additional constitutional complaints, Denies chills, Denies fatigue, Denies fever(s), Denies weakness and Reports other (dizziness) Eyes: Eyes: Reports no additional eye complaints, Denies change in vision and Denies loss of vision ENT: Reports system reviewed and no additional complaints, except as documented, Denies dysphagia, Denies dizziness, Denies dry mouth, Denies hearing loss and Denies lip swelling Cardiovascular: Cardiovascular: Reports no additional cardiovascular complaints, Denies chest pain, Denies syncope, Denies radiating jaw, neck or arm pain, Denies dyspnea and Denies dyspnea on exertion Respiratory: Respiratory: Reports no additional respiratory complaints, Denies cough, Denies dyspnea, Denies dyspnea on exertion and Denies wheezing Gastrointestinal: Gastrointestinal: Reports no additional gastrointestinal complaints, Denies abdominal pain, Denies bloating, Denies change in bowel habits, Denies change in stool character, Denies constipation and Denies dysphagia Genitourinary: Genitourinary: Reports no additional male genitourinary complaints, Denies hematuria and Denies dysuria Musculoskeletal: Musculoskeletal: Reports no additional musculoskeletal complaints, Denies abnormal gait, Denies myalgias, Denies deformity, Denies joint swelling and Denies tingling Integumentary/Breasts: Skin/Breast: Reports system reviewed and no additional complaints, except as docu, Reports as per HPI and Reports other (right 3rd toe discoloration, wound, swelling of right foot) Neurologic: Reports system reviewed and no additional complaints, except as documented, Denies confusion, Reports dizziness and Denies tingling Psychiatric: Psychiatric: Reports no additional psychiatric complaints, Denies anxiety, Denies confusion and Denies depression PMFSH Past Medical History Medical History Apical mural thrombus CHF (congestive heart failure) Echo 07/13/19 showing EF 20-25%, dilated LV, inferapical thrombus, diastolic dysfunction (E/e' 26), mod LAE, mild-mod TR. 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 Sibling Acute myocardial infarction Mother Lung cancer Social History Social History Social History: The patient was discharged to [facility] status post previous hospitalization in May. He was discharged from there around July 01 at the completion of his IV antibiotics and has been living with his [id number] and his niece. Dressing changes have been performed by his niece's cousin daily. He has not returned to his home since h
--- NOTE | 2020-09-23 08:28 | PM.IMHP ---
H&P: HPI History of Present Illness Date/Time: 09/23/20 08:28 Chief Complaint: Right DFU Narrative: 69-year-old male presents to the [facility] wound clinic today for re-evaluation of right diabetic foot ulcer and postoperative wound dehiscence. Patient denies fever, chills, night sweats, nausea or diarrhea. No reported worsening of wounds. He has undergone a total of 4 graft applications with continued improvement in dimensions. Home health and family is assisting with dressing changes. No new concerns. 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 Review of Systems Constitutional: Constitutional: Reports as per HPI, Reports no additional constitutional complaints, Denies chills, Denies fatigue, Denies fever(s), Denies weakness and Reports other (dizziness) Eyes: Eyes: Reports no additional eye complaints, Denies change in vision and Denies loss of vision ENT: Reports system reviewed and no additional complaints, except as documented, Denies dysphagia, Denies dizziness, Denies dry mouth, Denies hearing loss and Denies lip swelling Cardiovascular: Cardiovascular: Reports no additional cardiovascular complaints, Denies chest pain, Denies syncope, Denies radiating jaw, neck or arm pain, Denies dyspnea and Denies dyspnea on exertion Respiratory: Respiratory: Reports no additional respiratory complaints, Denies cough, Denies dyspnea, Denies dyspnea on exertion and Denies wheezing Gastrointestinal: Gastrointestinal: Reports no additional gastrointestinal complaints, Denies abdominal pain, Denies bloating, Denies change in bowel habits, Denies change in stool character, Denies constipation and Denies dysphagia Genitourinary: Genitourinary: Reports no additional male genitourinary complaints, Denies hematuria and Denies dysuria Musculoskeletal: Musculoskeletal: Reports no additional musculoskeletal complaints, Denies abnormal gait, Denies myalgias, Denies deformity, Denies joint swelling and Denies tingling Integumentary/Breasts: Skin/Breast: Reports system reviewed and no additional complaints, except as docu, Reports as per HPI and Reports other (right 3rd toe discoloration, wound, swelling of right foot) Neurologic: Reports system reviewed and no additional complaints, except as documented, Denies confusion, Reports dizziness and Denies tingling Psychiatric: Psychiatric: Reports no additional psychiatric complaints, Denies anxiety, Denies confusion and Denies depression PMFSH Past Medical History Medical History Apical mural thrombus CHF (congestive heart failure) Echo 07/13/19 showing EF 20-25%, dilated LV, inferapical thrombus, diastolic dysfunction (E/e' 26), mod LAE, mild-mod TR. Depression Diabetes mellitus Diabetic ulcer of right foot associated with diabetes mellitus due to underlying condition Dyslipidemia Essential (primary) hypertension NICM (nonischemic cardiomyopathy) NSVT (nonsustained ventricular tachycardia) PAT (paroxysmal atrial tachycardia) Peripheral arterial disease Shoulder fracture, left Staph infection thigh Vitamin D deficiency Surgical History Surgical History History of complete ray amputation of third toe of right foot 05/2020 - due to osteomyelitis History of permanent cardiac pacemaker placement Medtronic BiV-ICD placed at [facility] 08/06/19 Family History Family History Other No problems noted. Sibling Acute myocardial infarction Mother Lung cancer Social History Social History Social History: The patient was discharged to [facility] status post previous hospitalization in May. He was discharged from there around July 01 at the completion of his IV antibiotics and has been living with his iehutx-ax-rna and his niece. Janeen
--- NOTE | 2020-09-30 08:27 | PM.IMHP ---
H&P: HPI History of Present Illness Date/Time: 09/30/20 08:27 Chief Complaint: Right DFU Narrative: 69-year-old male presents to the [facility] wound clinic today for re-evaluation of right diabetic foot ulcer and postoperative wound dehiscence. Patient denies fever, chills, night sweats, nausea or diarrhea. No reported worsening of wounds. He has undergone a total of 5 graft applications with continued improvement in dimensions. He is 1 week s/p graft #5. Home health and family is assisting with dressing changes. No new concerns. 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 Review of Systems Constitutional: Constitutional: Reports as per HPI, Reports no additional constitutional complaints, Denies chills, Denies fatigue, Denies fever(s), Denies weakness and Reports other (dizziness) Eyes: Eyes: Reports no additional eye complaints, Denies change in vision and Denies loss of vision ENT: Reports system reviewed and no additional complaints, except as documented, Denies dysphagia, Denies dizziness, Denies dry mouth, Denies hearing loss and Denies lip swelling Cardiovascular: Cardiovascular: Reports no additional cardiovascular complaints, Denies chest pain, Denies syncope, Denies radiating jaw, neck or arm pain, Denies dyspnea and Denies dyspnea on exertion Respiratory: Respiratory: Reports no additional respiratory complaints, Denies cough, Denies dyspnea, Denies dyspnea on exertion and Denies wheezing Gastrointestinal: Gastrointestinal: Reports no additional gastrointestinal complaints, Denies abdominal pain, Denies bloating, Denies change in bowel habits, Denies change in stool character, Denies constipation and Denies dysphagia Genitourinary: Genitourinary: Reports no additional male genitourinary complaints, Denies hematuria and Denies dysuria Musculoskeletal: Musculoskeletal: Reports no additional musculoskeletal complaints, Denies abnormal gait, Denies myalgias, Denies deformity, Denies joint swelling and Denies tingling Integumentary/Breasts: Skin/Breast: Reports system reviewed and no additional complaints, except as docu, Reports as per HPI and Reports other (right 3rd toe discoloration, wound, swelling of right foot) Neurologic: Reports system reviewed and no additional complaints, except as documented, Denies confusion, Reports dizziness and Denies tingling Psychiatric: Psychiatric: Reports no additional psychiatric complaints, Denies anxiety, Denies confusion and Denies depression PMFSH Past Medical History Medical History Apical mural thrombus CHF (congestive heart failure) Echo 07/13/19 showing EF 20-25%, dilated LV, inferapical thrombus, diastolic dysfunction (E/e' 26), mod LAE, mild-mod TR. Depression Diabetes mellitus Diabetic ulcer of right foot associated with diabetes mellitus due to underlying condition Dyslipidemia Essential (primary) hypertension NICM (nonischemic cardiomyopathy) NSVT (nonsustained ventricular tachycardia) PAT (paroxysmal atrial tachycardia) Peripheral arterial disease Shoulder fracture, left Staph infection thigh Vitamin D deficiency Surgical History Surgical History History of complete ray amputation of third toe of right foot 05/2020 - due to osteomyelitis History of permanent cardiac pacemaker placement Medtronic BiV-ICD placed at [facility] 08/06/19 Family History Family History Other No problems noted. Sibling Acute myocardial infarction Mother Lung cancer Social History Social History (Updated 09/30/20 @ 08:29 by ALIZA Astudillo) Social History: Patient is currently living with his [id number]. He is not working but his job at [employer] is being held until he is able to return to work. He is a full code. He is a lifelong nonsmoker. No drug or alcohol use. Smoking status:
--- NOTE | 2020-10-07 08:59 | PM.IMHP ---
H&P: HPI History of Present Illness Date/Time: 10/07/20 08:59 Chief Complaint: Right Foot Ulcer Narrative: 69-year-old male presents to the [facility] wound clinic today for re-evaluation of right diabetic foot ulcer and postoperative wound dehiscence. Patient denies fever, chills, night sweats, nausea or diarrhea. No reported worsening of wounds. He has undergone a total of 5 graft applications with continued improvement in dimensions. He is 2 weeks s/p graft #5. Home health and family is assisting with dressing changes. No new concerns. 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 Review of Systems Constitutional: Constitutional: Reports as per HPI, Reports no additional constitutional complaints, Denies chills, Denies fatigue, Denies fever(s), Denies weakness and Reports other (dizziness) Eyes: Eyes: Reports no additional eye complaints, Denies change in vision and Denies loss of vision ENT: Reports system reviewed and no additional complaints, except as documented, Denies dysphagia, Denies dizziness, Denies dry mouth, Denies hearing loss and Denies lip swelling Cardiovascular: Cardiovascular: Reports no additional cardiovascular complaints, Denies chest pain, Denies syncope, Denies radiating jaw, neck or arm pain, Denies dyspnea and Denies dyspnea on exertion Respiratory: Respiratory: Reports no additional respiratory complaints, Denies cough, Denies dyspnea, Denies dyspnea on exertion and Denies wheezing Gastrointestinal: Gastrointestinal: Reports no additional gastrointestinal complaints, Denies abdominal pain, Denies bloating, Denies change in bowel habits, Denies change in stool character, Denies constipation and Denies dysphagia Genitourinary: Genitourinary: Reports no additional male genitourinary complaints, Denies hematuria and Denies dysuria Musculoskeletal: Musculoskeletal: Reports no additional musculoskeletal complaints, Denies abnormal gait, Denies myalgias, Denies deformity, Denies joint swelling and Denies tingling Integumentary/Breasts: Skin/Breast: Reports system reviewed and no additional complaints, except as docu, Reports as per HPI and Reports other (right 3rd toe discoloration, wound, swelling of right foot) Neurologic: Reports system reviewed and no additional complaints, except as documented, Denies confusion, Reports dizziness and Denies tingling Psychiatric: Psychiatric: Reports no additional psychiatric complaints, Denies anxiety, Denies confusion and Denies depression PMFSH Past Medical History Medical History (Updated 10/07/20 @ 09:04 by ALIZA Astudillo) Apical mural thrombus CHF (congestive heart failure) Echo 07/13/19 showing EF 20-25%, dilated LV, inferapical thrombus, diastolic dysfunction (E/e' 26), mod LAE, mild-mod TR. 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 Sibling Acute myocardial infarction Mother Lung cancer Social History Social History Social History: Patient is currently living with his [id number]. He is not working but his job at [employer] is being held until he is able to return to work. He is a full code. He is a lifelong nonsmoker. N
--- NOTE | 2020-10-14 08:35 | PM.PNORT ---
Progress Note: A&P Assessment and Plan (1) Diabetic ulcer of right foot associated with diabetes mellitus due to underlying condition: Qualifiers: Diabetic foot ulcer location: other Non-pressure ulcer stage: with necrosis of bone Qualified Code(s): E08.621 - Diabetes mellitus due to underlying condition with foot ulcer; 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 Code(s): E08.621 - Diabetes mellitus due to underlying condition with foot ulcer; L97.519 - Non-pressure chronic ulcer of other part of right foot with unspecified severity Status: Acute Assessment and Plan: 10 weeks, 6 days status post excisional debridement of right diabetic foot ulcer excision of osteomyelitis in the 5th metatarsal head. Patient has now undergone 5 [employer] graft applications with marked improvement in dimensions. 2 weeks s/p 5th graft placement. Lateral forefoot ulcer is now completely healed. Interspace wound measures 0.6x0.2x0.1 cm, 100% red/pink wound bed. No new signs of infection. The patient is demanding to go back to work full-time at this point. He is also refusing to get custom orthotics in depth shoes. He says he has a friend who workas somewhere in [place] who he is buying expensive shoes from this week. Despite thorough education regarding importance of custom orthotics in depth shoes for offloading and prevention of recurrent diabetic foot ulcers, patient continues to decline. Work note dispensed today. Full return to work. No restrictions at patient's request. Advised patient to follow up in 2 weeks for re-evaluation of current wound. Continue daily dressing changes. Patient may wash foot. Transfer over remaining wound between the 2nd and 4th ray. Reviewed signs and symptoms of worsening infection to report to emergency room immediately. (2) Acute osteomyelitis of toe of right foot: Code(s): M86.171 - Other acute osteomyelitis, right ankle and foot Status: Acute Assessment and Plan: No signs of active infection. (3) Diabetes mellitus with neuropathy: Qualifiers: Diabetes mellitus retirement insulin use: without intermediate teacher use Diabetes mellitus type: type 2 Qualified Code(s): E11.40 - Type 2 diabetes mellitus with diabetic neuropathy, unspecified Code(s): E11.40 - Type 2 diabetes mellitus with diabetic neuropathy, unspecified Status: Acute Subjective Subjective Date/Time Seen: 10/14/20 08:35 Interval history: 69-year-old male presents [facility] wound clinic today 10 weeks, 6 days status post excisional debridement of right diabetic foot ulcer with excision of osteomyelitis from the 5th metatarsal head and 2 weeks status post amniotic cell graft application. Patient denies fever, chills, night sweats, nausea, vomiting or diarrhea. No new signs of infection. He has been tolerating dressing changes daily without complications. Review of Systems Constitutional: Constitutional: Reports as per HPI, Reports no additional constitutional complaints, Denies chills, Denies fatigue, Denies fever(s), Denies weakness and Reports other (dizziness) Eyes: Eyes: Reports no additional eye complaints, Denies change in vision and Denies loss of vision ENT: Reports system reviewed and no additional complaints, except as documented, Denies dysphagia, Denies dizziness, Denies dry mouth, Denies hearing loss and Denies lip swelling Cardiovascular: Cardiovascular: Reports no additional cardiovascular complaints, Denies chest pain, Denies syncope, Denies radiating jaw, neck or arm pain, Denies dyspnea and Denies dyspnea on exertion Respiratory: Respiratory: Reports no additional respiratory complaints, Denies cough, Denies dyspnea, Denies dyspnea on exertion and Denies wheezing Gastrointestinal: Gastrointestinal: Reports no additional gastrointestinal complaints, Denies abdominal pain, Denies bloating, Denies change in bowel habits, Den
--- NOTE | 2020-10-28 08:41 | PM.PNORT ---
Progress Note: A&P Assessment and Plan (1) Diabetic ulcer of right foot associated with diabetes mellitus due to underlying condition: Qualifiers: Diabetic foot ulcer location: other Non-pressure ulcer stage: with necrosis of bone Qualified Code(s): E08.621 - Diabetes mellitus due to underlying condition with foot ulcer; 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 Code(s): E08.621 - Diabetes mellitus due to underlying condition with foot ulcer; L97.519 - Non-pressure chronic ulcer of other part of right foot with unspecified severity Status: Acute Assessment and Plan: 12 weeks, 6 days status post excisional debridement of right diabetic foot ulcer excision of osteomyelitis in the 5th metatarsal head. Patient has returned to work. He notes a new blister on the plantar aspect of the 2nd met head. Also with new masceration on the dorsum of the forefoot. Patient previous declined custom orthotics/depth shoes. Reiterated importance due to the fact that he now has new ulceration s/p debridement of blister. Ulcer underlying blister measures 2.5x1.0x0.2cm, 100% red/pink wound bed. Patient to return to work with fracture boot at all times. Patient to perform daily dressing changes. Silver gel to plantar ulcer, cover with mepilex foam. Antifungal powder/transfer to dorsum of foot. Encouraged booking appt with [facility] clinic for custom orthotics/depth shoes. Patient to follow up in 1 week for reevaluation. Discussed signs/symptoms of infection that would require more immediate evaluation in the ED. Verbalized understanding and agrees with plan of care. (2) Acute osteomyelitis of toe of right foot: Code(s): M86.171 - Other acute osteomyelitis, right ankle and foot Status: Acute Assessment and Plan: No signs of active infection. (3) Diabetes mellitus with neuropathy: Qualifiers: Diabetes mellitus type: type 2 Diabetes mellitus mcc insulin use: without terminal operations supervisor use Qualified Code(s): E11.40 - Type 2 diabetes mellitus with diabetic neuropathy, unspecified Code(s): E11.40 - Type 2 diabetes mellitus with diabetic neuropathy, unspecified Status: Acute Subjective Subjective Date/Time Seen: 10/28/20 08:41 69-year-old male returns to the [place] wound clinic today 12 weeks, 6 days s/p excisional debridement of right diabetic foot ulcer with excision of osteomyelitis from the 5th metatarsal head. Patient denies fever, chills, night sweats, nausea, vomiting or diarrhea. He has returned to work. He does endorse having stood outdoors in the rain for several hours and is now noticing a new blister and changes to the dorsum of the right foot. Review of Systems Constitutional: Constitutional: Reports as per HPI, Reports no additional constitutional complaints, Denies chills, Denies fatigue, Denies fever(s), Denies weakness and Reports other (dizziness) Eyes: Eyes: Reports no additional eye complaints, Denies change in vision and Denies loss of vision ENT: Reports system reviewed and no additional complaints, except as documented, Denies dysphagia, Denies dizziness, Denies dry mouth, Denies hearing loss and Denies lip swelling Cardiovascular: Cardiovascular: Reports no additional cardiovascular complaints, Denies chest pain, Denies syncope, Denies radiating jaw, neck or arm pain, Denies dyspnea and Denies dyspnea on exertion Respiratory: Respiratory: Reports no additional respiratory complaints, Denies cough, Denies dyspnea, Denies dyspnea on exertion and Denies wheezing Gastrointestinal: Gastrointestinal: Reports no additional gastrointestinal complaints, Denies abdominal pain, Denies bloating, Denies change in bowel habits, Denies change in stool character, Denies constipation and Denies dysphagia Genitourinary: Genitourinary: Reports no additional male genitourinary complaints, Denies hematuria and Denies dysuria Musculoskeletal: Musculos
--- NOTE | 2020-11-04 08:27 | PM.IMHP ---
H&P: HPI History of Present Illness Date/Time: 11/04/20 08:27 Chief Complaint: Right foot wound. Narrative: 69-year-old male presents to the [facility] wound clinic today for re-evaluation of right diabetic foot ulcer and postoperative wound dehiscence. Patient denies fever, chills, night sweats, nausea or diarrhea. He was evaluated 1 week ago and noted to have a new ulcer on the plantar aspect of the right foot due to standing in the rain at work in regular shoe wear. He was transition back to the fracture boot at that time. He is following up today for re-evaluation of the wound bed. Review of Systems Constitutional: Constitutional: Reports as per HPI, Reports no additional constitutional complaints, Denies chills, Denies fatigue, Denies fever(s), Denies weakness and Reports other (dizziness) Eyes: Eyes: Reports no additional eye complaints, Denies change in vision and Denies loss of vision ENT: Reports system reviewed and no additional complaints, except as documented, Denies dysphagia, Denies dizziness, Denies dry mouth, Denies hearing loss and Denies lip swelling Cardiovascular: Cardiovascular: Reports no additional cardiovascular complaints, Denies chest pain, Denies syncope, Denies radiating jaw, neck or arm pain, Denies dyspnea and Denies dyspnea on exertion Respiratory: Respiratory: Reports no additional respiratory complaints, Denies cough, Denies dyspnea, Denies dyspnea on exertion and Denies wheezing Gastrointestinal: Gastrointestinal: Reports no additional gastrointestinal complaints, Denies abdominal pain, Denies bloating, Denies change in bowel habits, Denies change in stool character, Denies constipation and Denies dysphagia Genitourinary: Genitourinary: Reports no additional male genitourinary complaints, Denies hematuria and Denies dysuria Musculoskeletal: Musculoskeletal: Reports no additional musculoskeletal complaints, Denies abnormal gait, Denies myalgias, Denies deformity, Denies joint swelling and Denies tingling Integumentary/Breasts: Skin/Breast: Reports system reviewed and no additional complaints, except as docu, Reports as per HPI and Reports other (right 3rd toe discoloration, wound, swelling of right foot) Neurologic: Reports system reviewed and no additional complaints, except as documented, Denies confusion, Reports dizziness and Denies tingling Psychiatric: Psychiatric: Reports no additional psychiatric complaints, Denies anxiety, Denies confusion and Denies depression PMFSH Past Medical History Medical History Apical mural thrombus CHF (congestive heart failure) Echo 07/13/19 showing EF 20-25%, dilated LV, inferapical thrombus, diastolic dysfunction (E/e' 26), mod LAE, mild-mod TR. Depression Diabetes mellitus Diabetes mellitus with neuropathy Diabetic ulcer of right foot associated with diabetes mellitus due to underlying condition Dyslipidemia Essential (primary) hypertension NICM (nonischemic cardiomyopathy) NSVT (nonsustained ventricular tachycardia) PAT (paroxysmal atrial tachycardia) Peripheral arterial disease Shoulder fracture, left Staph infection thigh Vitamin D deficiency Surgical History Surgical History History of complete ray amputation of third toe of right foot 05/2020 - due to osteomyelitis History of permanent cardiac pacemaker placement Medtronic BiV-ICD placed at [place] [facility] 08/06/19 Family History Family History Other No problems noted. Sibling Acute myocardial infarction Mother Lung cancer Social History Social History Social History: Patient is currently living with his [id number]. He is not working but his job at [employer] is being held until he is able to return to work. He is a full code. He is a lifelong nonsmoker. No drug or alcohol use. Smoking
== END 2020-12-08 23:59 | disposition home or self-care (01) ==
LOC: ANHWOC 07:20
PROVIDERS: PCP Family Medicine; Visit Provider Nurse Practitioner Family
DX: E11.621 Type 2 diabetes mellitus with foot ulcer (principal); L97.519 Non-pressure chronic ulcer of other part of right foot with unspecified severity
CPT/HCPCS: 11042; 15275; 99211; 99212; A9270; G0463; Q4137

== ENCOUNTER 2020-12-27 09:37 | Emergency (ER) | payer MEDICARE, SELFPAY ==
[2020-12-27 10:13] VITALS: BP 152/73; PULSE 85; RESP 20; TEMP 36.4; O2SAT 100
--- NOTE | 2020-12-27 11:59 | ED.EYEPROB ---
HPI - Eye Problem General Chief complaint: Eye Problems Stated complaint: R eye blurred vision Time Seen by Provider: 12/27/20 11:59 Source: patient, RN notes reviewed and old records reviewed Mode of arrival: ambulatory Limitations: no limitations History of Present Illness HPI Narrative: Patient is 70 years old white male presented to the ED with blurry vision and floaters across the right eye started last night, got worse this morning. Patient reports waves and curtain like image across the right eye. Patient denies any pain, headache, nausea,, vomiting, trauma, discharge, redness or having similar symptoms. Patient is fully vaccinated for COVID-19 Related Data Home Medications Medication Instructions Recorded Confirmed atorvastatin [Lipitor] 20 mg PO HS 05/20/20 07/28/20 magnesium oxide 400 mg PO BID 05/20/20 07/28/20 Allergies Allergy/AdvReac Type Severity Reaction Status Date / Time Penicillins Allergy Mild Unknown Verified 07/17/20 11:20 Review of Systems Review of Systems: CONSTITUTIONAL: Denies fever, chills, or sweats. EYES: Denies visual changes, redness, or discharge. ENT: Denies rhinorrhea, congestion, sore throat, or otalgia. CARDIOVASCULAR: Denies chest pain, palpitations, or edema. RESPIRATORY: Denies cough or dyspnea. GASTROINTESTINAL: Denies abdominal pain, nausea, vomiting, or diarrhea. GENITOURINARY: Denies dysuria or hematuria. SKIN: Denies rash or itching. MUSCULOSKELETAL: Denies back pain, joint pain, or myalgia. NEUROLOGIC: Denies headache, numbness, or weakness. PSYCHIATRIC: Denies anxiety or depression. [facility] Past Medical History Medical History Apical mural thrombus CHF (congestive heart failure) Echo 07/13/19 showing EF 20-25%, dilated LV, inferapical thrombus, diastolic dysfunction (E/e' 26), mod LAE, mild-mod TR. Depression Diabetes mellitus Diabetes mellitus with neuropathy Diabetic ulcer of right foot associated with diabetes mellitus due to underlying condition Dyslipidemia Essential (primary) hypertension NICM (nonischemic cardiomyopathy) NSVT (nonsustained ventricular tachycardia) PAT (paroxysmal atrial tachycardia) Peripheral arterial disease Shoulder fracture, left Staph infection thigh Vitamin D deficiency Surgical History Surgical History History of complete ray amputation of third toe of right foot 05/2020 - due to osteomyelitis History of permanent cardiac pacemaker placement Medtronic BiV-ICD placed at [facility] 08/06/19 Family History Family History Other No problems noted. Sibling Acute myocardial infarction Mother Lung cancer Social History Social History Social History: Patient is currently living with his [id number]. He is not working but his job at [employer] is being held until he is able to return to work. He is a full code. He is a lifelong nonsmoker. No drug or alcohol use. Smoking status: Never smoker Alcohol intake: never Substance use: never Additional living arrangements comments: [id number] Additional occupation/education comments: Employed at [employer] but currently not working- job being held Gender identity (if verbalized by the patient): Male Sexual Orientation (if Verbalized by the Patient): Straight or Heterosexual Spiritual care concerns: No Agree to blood products: Yes Exam Narrative: General appearance: Well-developed, well-nourished Skin: Normal color Head: Normocephalic, nontraumatic Eyes: Clear conjunctiva ENT: Oropharynx normal, ears normal, nose normal Neck: Supple, nontender Chest and respiratory: Airway patent, no respiratory distress, no accessory muscle use Heart: Regular rate/rhythm Abdomen: Soft, nontender, no organomegaly, quiet bowel sounds Vascular: Normal peripheral pulses
--- NOTE | 2020-12-27 13:08 | PC.NURSE ---
1249: Called [facility] to transport to [facility]...eta 0230 1257: Called [facility] to transport to [facility]...declined. 1301: Called [facility] to transport to [facility]...accepted...ETA drive time from [facility] 1301: Cancelled [facility]
[2020-12-27 13:21] VITALS: BP 148/84; PULSE 80; RESP 14; O2SAT 98
[2020-12-27 13:46] VITALS: BP 148/88; PULSE 80; RESP 14; O2SAT 98
== END 2020-12-27 13:48 | disposition short-term general hospital (02) ==
PROVIDERS: Emergency Provider Emergency Medicine; PCP Family Medicine
DX: H53.8 Other visual disturbances (principal); H43.391 Other vitreous opacities, right eye; I50.9 Heart failure, unspecified; I11.0 Hypertensive heart disease with heart failure; E11.40 Type 2 diabetes mellitus with diabetic neuropathy, unspecified; E11.51 Type 2 diabetes mellitus with diabetic peripheral angiopathy without gangrene; E78.5 Hyperlipidemia, unspecified; I42.8 Other cardiomyopathies; E55.9 Vitamin D deficiency, unspecified; Z95.0 Presence of cardiac pacemaker; Z89.421 Acquired absence of other right toe(s); Z79.4 Long term (current) use of insulin; Z79.82 Long term (current) use of aspirin
CPT/HCPCS: 99282; 99285

== ENCOUNTER 2021-02-23 09:45 | Inpatient (IN) | payer OTHER, SELFPAY ==
[2021-02-23] VITALS (26 sets, daily range): BP systolic 113–137; BP diastolic 60–99; PULSE 64–98; RESP 13–24; TEMP 36.2; O2SAT 90–100
--- NOTE | ~2021-02-23 | US_ITS ---
EXAMINATION: US venous doppler [facility] DATE: 02/25/2021 11:20 INDICATION: Bilateral lower limb swelling TECHNIQUE: Mcguire scale images without and with compression and Doppler images of the bilateral lower e xtremity veins were obtained. COMPARISON: None FINDINGS: There is bilateral subcutaneous edema. The right common femoral vein, profunda femoral vein, femoral vein, popliteal vein, peroneal trunk, p osterior tibial veins, and greater saphenous vein are patent. The left common femoral vein, profunda femoral vein, femoral vein, popliteal vein, peroneal trunk, po sterior tibial veins are patent. There is partial superficial thrombosis of the left greater saphenou s vein. IMPRESSION: 1. No evidence of deep venous thrombosis. Partial thrombosis of the superficial left greater saphenou s vein. Reviewed, dictated and finalized at location B. SLIDE MACHINE SETTER IMPRESSION: 1. No evidence of deep venous thrombosis. Partial thrombosis of the superficial left greater saphenous vein.
--- NOTE | ~2021-02-23 | XR_ITS ---
EXAMINATION: XR chest 2V DATE: 02/23/2021 10:14 INDICATION: Shortness of breath and cough TECHNIQUE: PA and lateral views of the chest are obtained. COMPARISON: 05/23/2020 FINDINGS: There are small pleural effusions. Airspace opacities are present in the lung bases. There is no pneumothorax. Cardiomegaly is noted. A triple lead cardiac pacemaker of the left chest wall end s with leads in expected locations. There are bridging osteophytes at multiple levels in the spine, c onsistent with diffuse idiopathic skeletal hyperostosis (DISH). IMPRESSION: 1. Small pleural effusions. 2. Bibasilar airspace opacities, consistent with atelectasis versus pneumonia. Reviewed, dictated and finalized at location B. ICAL PROCESS OPERATOR
--- NOTE | 2021-02-23 09:48 | ECG_ITS ---
Measurements Intervals [place] Rate: 98 P: 8 SC: 124 QRS: 247 QRSD: 164 T: 48 QT: 417 QTc: 534 Interpretive Statements ATRIAL SENSE- ELECTRONIC VENTRICULAR PACEMAKER BASELINE ARTIFACT- I, III, AVL NO FURTHER INTERPRETATION IS POSSIBLE ATYPICAL ECG Electronically Signed On 02-23-2021 10:04:55 PARKING METER SERVICER by Jovanni Goodman D.O.
[2021-02-23 10:09] LABS: Basophils Percent Auto 0.5 % (0.2-1.2); Eosinophils Absolute Auto 0.3 K/mm3 (0-0.3); Eosinophils Percent Auto 3.2 % (0-4.4); Hematocrit 38.6 % (42.0-52.0); Hemoglobin 12.3 g/dL (14.0-18.0); Immature Granulocyte Absolute 0.03 K/mm3 (0.00-0.031); Immature Granulocyte Percent A 0.4 % (0-0.5); Lymphocytes Absolute Auto 0.96 K/mm3 (0.9-3.2); Lymphocytes Percent Auto 12.1 % (18.3-44.2); Mean Corpuscular HGB Conc 31.9 g/dl (32-36); Mean Corpuscular Hemoglobin 29.3 pg (26-34); Mean Corpuscular Volume 91.9 fl (80-100); Mean Platelet Volume 10.8 fl (7.4-10.4); Monocytes Absolute Auto 0.6 K/mm3 (0.1-0.6); Monocytes Percent Auto 7.1 % (2.6-8.5); Neutrophils Absolute Auto 6.1 K/mm3 (1.3-6.7); Neutrophils Percent Auto 76.7 % (45.5-73.1); Platelet Count Result 237 k/mm3 (150-375); Red Cell Distribution Width 13.2 % (11.5-14.5); White Blood Count 7.9 K/mm3 (4.5-10.0)
[2021-02-23 10:19] LABS: Anion Gap 10 mmol/L (8-16); Blood Urea Nitrogen 23 mg/dL (9-20); Calcium 9.3 mg/dL (8.4-10.2); Carbon Dioxide 26 mmol/L (22-30); Chloride 105 mmol/L (98-107); Estimated Glomerular Filt Rate > 60; Glucose 190 mg/dL (65-110); Potassium 4.1 mmol/L (3.4-5.0); Sodium 141 mmol/L (137-145)
[2021-02-23 10:38] LABS: NT Pro B Type Natriuretic Pept 5610 pg/mL (5-100); Troponin I 0.109 ng/mL (0.000-0.034)
[2021-02-23 11:48] LABS: INR 1.1; Partial Thromboplastin Time 21.4 SECONDS (22.3-36.8); Prothrombin Time 13.8 Seconds (11.1-14.7)
--- NOTE | 2021-02-23 11:50 | ED.SOB ---
HPI - SOB/Dyspnea General Chief Complaint: Shortness of Breath/Dyspnea Stated Complaint: LEG SWELLING, DYSPNEA ON EXERTION [id number] Time Seen by Provider: 02/23/21 11:50 Source: patient Mode of arrival: ambulatory Limitations: no limitations History of Present Illness HPI Narrative: Patient is a 70-year-old male with a history of complete heart block, ICD, insulin-dependent diabetes, hypertension, hyperlipidemia, congestive heart failure, presenting for evaluation of shortness of breath with exertion and bilateral lower extremity edema. Patient states he has had increased lower extremity swelling over the past 2 weeks. Patient states in the past when he had an episode of worsening congestive heart failure this is how his symptoms presented thus prompting his visit today. Patient denies any chest pain, he does report shortness of breath with exertion. He is not on any oxygen at home. He reports his dyspnea improves with rest. He reports orthopnea. He denies any fever, chills. He does report dry cough. No loss of sense of taste or smell, no nausea, vomiting, abdominal pain or diarrhea. No recent sick contacts patient takes 20 mg of Lasix by mouth daily, has been compliant with his medications. States that he last saw Dr. Goodman 6 months ago, has had insurance issues thus has not had a follow-up appointment with any gold beater. Per chart review, 05/21/20 Echo: EF 40-45%, mild LVE, calcified stable apical thrombus, grade I diastolic dysfunction (E/e' 10), trace TR. Related Data Home Medications Medication Instructions Recorded Confirmed atorvastatin [Lipitor] 20 mg PO HS 05/20/20 07/28/20 magnesium oxide 400 mg PO BID 05/20/20 07/28/20 Allergies Allergy/AdvReac Type Severity Reaction Status Date / Time Penicillins Allergy Mild Unknown Verified 07/17/20 11:20 Review of Systems Review of Systems: CONSTITUTIONAL: Denies fever, chills, or sweats. EYES: Denies visual changes, redness, or discharge. ENT: Denies rhinorrhea, congestion, sore throat, or otalgia. CARDIOVASCULAR: Denies chest pain, palpitations, reports bilateral lower extremity swelling RESPIRATORY: Reports dry cough and shortness of breath GASTROINTESTINAL: Denies abdominal pain, nausea, vomiting, or diarrhea. GENITOURINARY: Denies dysuria or hematuria. SKIN: Denies rash or itching. MUSCULOSKELETAL: Denies back pain, joint pain, or myalgia. NEUROLOGIC: Denies headache, numbness, or weakness. [facility] Past Medical History Medical History Apical mural thrombus CHF (congestive heart failure) Echo 07/13/19 showing EF 20-25%, dilated LV, inferapical thrombus, diastolic dysfunction (E/e' 26), mod LAE, mild-mod TR. Depression Diabetes mellitus Diabetes mellitus with neuropathy Diabetic ulcer of right foot associated with diabetes mellitus due to underlying condition Dyslipidemia Essential (primary) hypertension NICM (nonischemic cardiomyopathy) NSVT (nonsustained ventricular tachycardia) PAT (paroxysmal atrial tachycardia) Peripheral arterial disease Shoulder fracture, left Staph infection thigh Vitamin D deficiency Surgical History Surgical History History of complete ray amputation of third toe of right foot 05/2020 - due to osteomyelitis History of permanent cardiac pacemaker placement Medtronic BiV-ICD placed at [facility] 08/06/19 Family History Family History Other No problems noted. Sibling Acute myocardial infarction Mother Lung cancer Social History Social History Social History: Patient is currently living with his [id number]. He is not working but his job at [employer] is being held until he is able to return to work. He is a full code. He is a lifelong nonsmoker. No drug or alcohol use. Smoking status: Never smoker Alcohol i
[2021-02-23] MEDS: FUROSEMIDE INJ 40 MG/4 ML VIAL 20 MG IV PUSH (12:49)
--- NOTE | 2021-02-23 14:47 | ECG_ITS ---
Measurements Intervals [place] Rate: 78 P: -5 ND: 223 QRS: 249 QRSD: 185 T: 57 QT: 482 QTc: 551 Interpretive Statements ATRIAL SENSE- ELECTRONIC VENTRICULAR PACEMAKER BASELINE ARTIFACT- V1, V3-V5 NO FURTHER INTERPRETATION IS POSSIBLE ATYPICAL ECG Electronically Signed On 02-23-2021 15:02:31 BEE KEEPER by Jovanni Goodman D.O.
[2021-02-23 15:25] LABS: Troponin I 0.657 ng/mL (0.000-0.034)
[2021-02-23] MEDS: MORPHINE SULFATE (*CRX) 2 MG/ML INJ IV PUSH (15:42)
[2021-02-23] MEDS: ASPIRIN 81 MG CHEWABLE TABLET 324 MG PO (15:42)
[2021-02-23] MEDS: ENOXAPARIN 80 MG/0.8 ML SYRINGE SUB-Q (15:47)
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
[2021-02-24] VITALS (15 sets, daily range): BP systolic 94–153; BP diastolic 49–95; PULSE 67–89; RESP 16–22; TEMP 36.5–37.1; O2SAT 93–100; BMI 29.4
--- NOTE | 2021-02-24 | ECHO_ITS ---
Patient Info Name: Dimitry Pa Age: 70 years : 1950 Gender: Male Ht: 70 in Wt: 172 lbs BSA: 1.97 m2 HR: 83 bpm BP: 103 / 64 mmHg Heart Rhythm: Indeterminant Exam Date: 02/24/2021 10:52 AM Exam Location: [facility] Patient Status: Inpatient Admit Date: 02/23/2021 Staff Ordering Physician: Bernie Colunga MD Biztalk Architect: Maxi Kunz RDCS, RT Attending Provider: Trang Red PA-C Referring Physician: Cristine TEJEDA; Exam Type: CA echo doppler color flow Study Info Indications I50.9 - Heart failure, unspecified Complete two-dimensional, color flow and Doppler transthoracic echocardiogram is performed. Strain analysis performed. Summary 1. Complete two-dimensional, color flow and Doppler transthoracic echocardiogram is performed. 2. Mild left ventricular enlargement with moderate eccentric hypertrophy. Severe global hypokinesis sparing the base, with akinesis of the apex, apical lateral and apical inferior segments. Calculated ejection fraction is 30 3% and visually is 25-30%. Grade 2 diastolic dysfunction is present. The global longitudinal strain is severely diminished at -9%. 3. Right ventricular chamber dimension is moderately enlarged with mild dysfunction. 4. Left atrial chamber dimension is moderately enlarged. 5. There is mild aortic valve calcification without stenosis. 6. There is moderate mitral valve regurgitation. 7. There is moderate tricuspid valve regurgitation. 8. Moderate pulmonary hypertension, estimated pulmonary arterial systolic pressure is 49 mmHg. 9. Indeterminate rhythm. Left Ventricle Left ventricular chamber dimension is mildly enlarged. Left ventricular systolic function is severely reduced, estimated at 25-30%. There is no increased left ventricular wall thickness. Left ventricular septal wall motion is abnormal with septal motion related to pacing. The left ventricular diastolic function is grade II diastolic dysfunction. Global longitudinal strain is severely elevated at 9 %. Right Ventricle Right ventricular chamber dimension is moderately enlarged with mild dysfunction. Right ventricular systolic function is reduced. Linear artifact in right ventricle suggestive of catheter(s), pacemaker lead(s), or ICD lead(s). Left Atria Left atrial chamber dimension is moderately enlarged. Right Atria Right atrial chamber dimension is normal. Aortic Valve The aortic valve is trileaflet. There is no aortic valve sclerosis. There is no aortic valve stenosis. There is no aortic valve regurgitation. There is mild aortic valve calcification without stenosis. Pulmonic Valve The pulmonic valve is normal. There is no pulmonic valve stenosis. There is trace pulmonic regurgitation. Mitral Valve The mitral valve has normal leaflets. There is no mitral valve stenosis. There is moderate mitral valve regurgitation. Tricuspid Valve The tricuspid valve leaflets are normal. There is no significant tricuspid valve stenosis. There is moderate tricuspid valve regurgitation. Moderate pulmonary hypertension, estimated pulmonary arterial systolic pressure is 49 mmHg. Pericardium/Pleural The pericardium appears normal. There is no pericardial effusion. Inferior Vena Cava Normal inferior vena cava with >50% collapse upon inspiration consistent with Empty right atrial pressure, 10 mmHg. Aorta The aortic root size at the sinus of Valsalva is normal. The prox ascending aorta size is normal. L
--- NOTE | 2021-02-24 00:09 | ADMGEN ---
This patient, Dimitry Pa, was admitted to IMU Room 205-02. Patient/family oriented to hospital policies and general routines including ID bracelet, bed and alarms, visiting hours, pain management, procedures, bathroom and other care routines, personal items, smoking policy, room service/diet, and visiting hours. Information on how to activate the Rapid Response Team has been discussed. Patient/Family are encouraged to report perceived risks to care and to ask questions if they do not understand what they are told or what they should do.
--- NOTE | 2021-02-24 00:34 | PC.NURSE ---
patient is refusing to let me look at his legs or feet, for nondenominational purposes. he stated that he has no open wounds on his body, refused to let me look. i could see a little bit of rt leg from sock to pants and there was some dark discoloration on leg, maybe scabs. not able to assess fully. it is not a male to male thing. he stated that no one is to touch his feet. he is to wash and take care of them himself and once a year the transition specialist does it.
[2021-02-24 06:50] LABS: Basophils Percent Auto 0.6 % (0.2-1.2); Eosinophils Absolute Auto 0.3 K/mm3 (0-0.3); Eosinophils Percent Auto 5.8 % (0-4.4); Hematocrit 33.9 % (42.0-52.0); Hemoglobin 10.8 g/dL (14.0-18.0); Immature Granulocyte Absolute 0.01 K/mm3 (0.00-0.031); Immature Granulocyte Percent A 0.2 % (0-0.5); Lymphocytes Percent Auto 20.9 % (18.3-44.2); Mean Corpuscular HGB Conc 31.9 g/dl (32-36); Mean Corpuscular Hemoglobin 28.7 pg (26-34); Mean Corpuscular Volume 90.2 fl (80-100); Mean Platelet Volume 11.1 fl (7.4-10.4); Monocytes Absolute Auto 0.4 K/mm3 (0.1-0.6); Monocytes Percent Auto 8.8 % (2.6-8.5); Neutrophils Absolute Auto 3.1 K/mm3 (1.3-6.7); Neutrophils Percent Auto 63.7 % (45.5-73.1); Platelet Count Result 204 k/mm3 (150-375); Red Blood Count 3.76 M/mm3 (4.6-6.20); Red Cell Distribution Width 13.2 % (11.5-14.5); White Blood Count 4.8 K/mm3 (4.5-10.0)
[2021-02-24 07:06] LABS: Lactic Acid Reflex 0.8 mmol/L (0.7-2.1)
[2021-02-24 07:15] LABS: Alanine Aminotransferase 26 U/L (4-50); Albumin Level 3.4 g/dL (3.5-5.1); Alkaline Phosphatase 155 U/L (38-126); Anion Gap 8 mmol/L (8-16); Aspartate Amino Transferase 33 U/L (17-59); Bilirubin,Total 1.5 mg/dL (0.2-1.3); Blood Urea Nitrogen 23 mg/dL (9-20); Calcium 8.7 mg/dL (8.4-10.2); Carbon Dioxide 26 mmol/L (22-30); Chloride 108 mmol/L (98-107); Estimated CRCL calculation 64 ml/min; Estimated Glomerular Filt Rate > 60; Glucose 76 mg/dL (65-110); Potassium 3.6 mmol/L (3.4-5.0); Sodium 142 mmol/L (137-145)
[2021-02-24 07:28] LABS: Lactate Dehydrogenase 418 U/L (313-618)
[2021-02-24] MEDS: carvediloL 6.25 MG TABLET PO ×2 (08:12→20:03)
[2021-02-24] MEDS: ASPIRIN 81 MG ENTERIC TABLET PO (08:12)
[2021-02-24] MEDS: FUROSEMIDE INJ 40 MG/4 ML VIAL 20 MG IV PUSH ×2 (08:12→17:12)
[2021-02-24] MEDS: ATORVASTATIN 20 MG TABLET PO (08:12)
[2021-02-24] MEDS: lisinopriL 5 MG TABLET PO (08:12)
[2021-02-24 08:51] LABS: Glucose Point of Care 69 mg/dl (65-105)
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
[2021-02-24 12:10] LABS: Glucose Point of Care 205 mg/dl (65-105)
[2021-02-24] MEDS: ENOXAPARIN 40 MG/0.4 ML SYRINGE SUB-Q (12:45)
--- NOTE | 2021-02-24 15:38 | PM.IMPN ---
Progress Note: A&P Assessment and Plan (1) Acute CHF: Code(s): I50.9 - Heart failure, unspecified Status: Acute Assessment and Plan: Acute on chronic acute systolic HF. Patient states his symptoms are improving with the Lasix -BNP elevated as well as troponin -continue IV Lasix, coreg and lisinopril. Will start spironolactone. Patient states he has had this in the past which really helped him -repeat echo pending. Echo in 2019 showed an EF of 20-25% with severe global hypokinesis. He had an ICD implanted at [facility] in the past. -patient's shortness of breath has resolved with IV lasix therapy. No PNA or PE suspected at this time. will check LE for DVT since pt has swelling and hx of PE. -cardiology onboard (2) Elevated troponin: Code(s): R77.8 - Other specified abnormalities of plasma proteins Status: Acute Assessment and Plan: Unclear significance. Pt has no CP now, ACS less likely -could be due to acute exacerbation of CHF -monitor on tele in the IMU (3) Diabetes mellitus with neuropathy: Qualifiers: Diabetes mellitus type: type 2 Diabetes mellitus chcf insulin use: without chcf use Qualified Code(s): E11.40 - Type 2 diabetes mellitus with diabetic neuropathy, unspecified Code(s): E11.40 - Type 2 diabetes mellitus with diabetic neuropathy, unspecified Status: Acute Assessment and Plan: Last glucose 205 -continue SSI and levemir (at reduced dose) -A1c back in july was 8.5. Recheck in AM (4) Essential (primary) hypertension: Code(s): I10 - Essential (primary) hypertension Status: Acute Assessment and Plan: Last bp 123/59 -continue coreg, spironolactone, lasix and lisinopril Time Spent With Patient Time with patient: 25 - 35 minutes Subjective Date/time seen: 02/24/21 15:38 Interval history: Pt is a 70-year-old male here for CHF exacerbation. Patient states he is no longer short of breath and he thinks his lower extremity swelling has improved. He says that he has a history of PE many years ago and was on warfarin but no longer requires this. He will not allow me to evaluate his feet due to gnosticism reasons . He denies nausea, vomiting, fevers, chills, chest pain, or abdominal pain. He states he has been on spironolactone in the past which has improved his symptoms Review of Systems Review of Systems: All systems reviewed & are unremarkable except as noted in HPI and below Exam Narrative: General: Well developed well nourished patient in NAD HEENT: normocephalic Neck: supple Neuro: Alert and oriented x4 CV:RRR Resp:CTA--no crackles or rhonchi heard. No conversational dyspnea Abd: Soft, non distended. No pain to palpation. Positive bowel sounds Extremities: Pitting edema noted bilaterally with no pain to palpation. Chronic discoloration noted. Patient refused foot exam. Objective Data Vital Signs Vital Signs: Vital Signs - 24 hr 02/23/21 16:00 02/23/21 16:12 02/23/21 16:31 Temperature 97.1 F L Pulse Rate 72 Respiratory Rate 13 Blood Pressure 125/76 134/82 Pulse Oximetry 99 100 02/23/21 16:35 02/23/21 16:40 02/23/21 16:45 Temperature Pulse Rate 75 74 74 Respiratory Rate 17 19 20 Blood Pressure 134/82 Pulse Oximetry 98 100 98 02/23/21 17:01 02/23/21 17:15 02/23/21 17:31 Temperature Pulse Rate 68 64 69 Respiratory Rate 21 H 19 21 H Blood Pressure 128/82 121/74 Pulse Oximetry 97 97 97 02/23/21 17:32 02/23/21 17:45 02/23/21 18:00 Temperature Pulse Rate 74 67 70 Respiratory Rate 21 H 18 19 Blood Pressure Pulse Oximetry 97 97 90 02/23/21 18:01 02/23/21 18:24 02/23/21 18:30 Temperature Pulse Rate 68 65 73 Respiratory Rate 18 17 21 H Blood Pressure 114/71 Pulse Oximetry 96 95 95 02/23/21 18:31 02/23/21 18:46 02/23/21 19:32 Temperature Pulse Rate 70 72 64 Respiratory Rate 24 H 20 23 H Blood Pressure 11
[2021-02-24 17:01] LABS: Glucose Point of Care 200 mg/dl (65-105)
[2021-02-24] MEDS: SPIRONOLACTONE 25 MG TABLET PO (17:12)
[2021-02-24] MEDS: INSULIN DETEMIR 100 UNITS/ML 15 UNITS SUB-Q (17:12)
[2021-02-24 20:15] LABS: Glucose Point of Care 242 mg/dl (65-105)
[2021-02-25] VITALS (14 sets, daily range): BP systolic 94–134; BP diastolic 54–70; PULSE 59–79; RESP 12–20; TEMP 36.5–36.9; O2SAT 96–100
[2021-02-25 05:20] LABS: Hematocrit 33.7 % (42.0-52.0); Hemoglobin 10.7 g/dL (14.0-18.0); Mean Corpuscular HGB Conc 31.8 g/dl (32-36); Mean Corpuscular Volume 91.3 fl (80-100); Mean Platelet Volume 11.1 fl (7.4-10.4); Platelet Count Result 196 k/mm3 (150-375); Red Blood Count 3.69 M/mm3 (4.6-6.20); Red Cell Distribution Width 13.2 % (11.5-14.5); White Blood Count 5.1 K/mm3 (4.5-10.0)
[2021-02-25 05:31] LABS: Anion Gap 9 mmol/L (8-16); Blood Urea Nitrogen 22 mg/dL (9-20); Calcium 8.3 mg/dL (8.4-10.2); Carbon Dioxide 28 mmol/L (22-30); Chloride 106 mmol/L (98-107); Estimated CRCL calculation 64 ml/min; Estimated Glomerular Filt Rate > 60; Glucose 106 mg/dL (65-110); Potassium 3.2 mmol/L (3.4-5.0); Sodium 143 mmol/L (137-145)
[2021-02-25 05:46] LABS: Hemoglobin A1C 7.6 % (<5.7)
[2021-02-25] MEDS: ATORVASTATIN 20 MG TABLET PO (08:49)
[2021-02-25] MEDS: carvediloL 6.25 MG TABLET PO ×2 (08:49→20:44)
[2021-02-25] MEDS: lisinopriL 5 MG TABLET PO (08:50)
[2021-02-25] MEDS: FUROSEMIDE INJ 40 MG/4 ML VIAL 20 MG IV PUSH ×2 (08:50→16:49)
[2021-02-25] MEDS: ENOXAPARIN 40 MG/0.4 ML SYRINGE SUB-Q (08:50)
[2021-02-25] MEDS: ASPIRIN 81 MG ENTERIC TABLET PO (08:50)
[2021-02-25] MEDS: SPIRONOLACTONE 25 MG TABLET PO (08:50)
[2021-02-25] MEDS: POTASSIUM CHLORIDE 20 MEQ TABLET 40 MEQ PO (08:52)
[2021-02-25] MEDS: INSULIN DETEMIR 100 UNITS/ML 15 UNITS SUB-Q ×2 (08:52→16:49)
[2021-02-25 09:02] LABS: Glucose Point of Care 99 mg/dl (65-105)
--- NOTE | 2021-02-25 09:45 | PM.IMPN ---
Progress Note: A&P Assessment and Plan (1) Acute on chronic systolic HF (heart failure): Code(s): I50.23 - Acute on chronic systolic (congestive) heart failure Status: Acute Assessment and Plan: Acute on chronic acute systolic HF. Patient states his symptoms are improving with the Lasix -BNP elevated as well as troponin -continue IV Lasix (considering increasing dose, will see what cardiology recommends), coreg and lisinopril. Spironolactone started 02/25/21. Patient states he has had this in the past which really helped him -repeat shows systolic dysfunction with calculated EF of 30%. He again has severe global hypokinesis (compared to echo in 2020). He had an ICD implanted at [facility] in the past. -patient's shortness of breath has improved with IV lasix therapy. No PNA or PE suspected at this time. will check LE for DVT since pt has swelling and hx of PE. -cardiology onboard (2) Elevated troponin: Code(s): R77.8 - Other specified abnormalities of plasma proteins Status: Acute Assessment and Plan: Unclear significance. Pt has no CP now, ACS less likely -could be due to acute exacerbation of CHF -monitor on tele in the IMU (3) Diabetes mellitus with neuropathy: Qualifiers: Diabetes mellitus type: type 2 Diabetes mellitus senior care insulin use: without remote computer terminal operator use Qualified Code(s): E11.40 - Type 2 diabetes mellitus with diabetic neuropathy, unspecified Code(s): E11.40 - Type 2 diabetes mellitus with diabetic neuropathy, unspecified Status: Acute Assessment and Plan: Last glucose 99 -continue SSI and levemir (at reduced dose) -A1c 7.6 (4) Essential (primary) hypertension: Code(s): I10 - Essential (primary) hypertension Status: Acute Assessment and Plan: Last bp 134/70 -continue coreg, spironolactone, lasix and lisinopril Subjective Date/time seen: 02/25/21 09:45 Interval history: Pt is a 70-year-old male here for CHF exacerbation. Patient was seen today and states he feels better every day. He still has dyspnea on exertion which he has never had before. He also continues to have lower extremity swelling which is improving. He says that he has a history of PE many years ago and was on warfarin but no longer requires this. He will not allow me to evaluate his feet due to alevism reasons . He denies nausea, vomiting, fevers, chills, chest pain, or abdominal pain. He states he has been on spironolactone in the past which has improved his symptoms Exam Narrative: General: Well developed well nourished patient in NAD HEENT: normocephalic Neck: supple Neuro: Alert and oriented x4 CV:RRR Resp:CTA--no crackles or rhonchi heard. No conversational dyspnea Abd: Soft, non distended. No pain to palpation. Positive bowel sounds Extremities: Pitting edema noted bilaterally with no pain to palpation. Chronic discoloration noted. Patient refused foot exam. Objective Data Vital Signs Vital Signs: Vital Signs - 24 hr 02/24/21 10:00 02/24/21 12:00 02/24/21 14:00 Temperature 98.5 F Pulse Rate 80 73 73 Respiratory Rate 20 Blood Pressure 123/59 L Pulse Oximetry 99 02/24/21 16:00 02/24/21 18:00 02/24/21 20:00 Temperature 98.7 F 97.8 F Pulse Rate 83 80 72 Respiratory Rate 16 20 Blood Pressure 108/49 L 101/54 L Pulse Oximetry 98 93 02/24/21 22:00 02/24/21 23:24 02/25/21 00:00 Temperature 98 F Pulse Rate 72 71 69 Respiratory Rate 18 Blood Pressure 94/52 L Pulse Oximetry 97 02/25/21 02:00 02/25/21 04:00 02/25/21 06:00 Temperature 97.9 F Pulse Rate 65 63 63 Respiratory Rate 20 Blood Pressure 102/65 Pulse Oximetry 96 02/25/21 08:00 02/25/21 08:49 Temperature 98.2 F Pulse Rate 69 63 Respiratory Rate 12 Blood Pressure 134/70 Pulse Oximetry 100 Intake/Output Intake/Output: Intake & Output 02/22/21 02/23/21 02/24/21 02/25/21 23:59 23:59 23:
[2021-02-25 12:25] LABS: Glucose Point of Care 90 mg/dl (65-105)
[2021-02-25 16:42] LABS: Glucose Point of Care 119 mg/dl (65-105)
[2021-02-25 20:03] LABS: Glucose Point of Care 83 mg/dl (65-105)
--- NOTE | 2021-02-25 20:03 | PM.PNCARD ---
Progress Note: A&P Assessment and Plan (1) Acute CHF: Code(s): I50.9 - Heart failure, unspecified Status: Deleted Assessment and Plan: Patient presented to the hospital with worsening shortness of breath and lower extremity swelling. He reports that his furosemide was recently held. Patient has acute on chronic CHF with reduced ejection fraction. -continue IV furosemide 20 mg IV push b.i.d. -- the patient clinically is improving but blood pressure soft-- with close monitoring of electrolytes and renal function. -continue beta víctor, JOSSY-inhibitor. -agree with the addition of spironolactone -supplement potassium to avoid hypokalemia (2) Elevated troponin: Code(s): R77.8 - Other specified abnormalities of plasma proteins Status: Acute Assessment and Plan: Patient's troponins (0.11, 0.66, 1.2 and 1.3) are elevated in the setting of CHF XR patient. No symptoms of ACS. EKG shows V paced rhythm. Have not been able to find cardiac catheterization records from [facility] about patient's previous ischemic workup. Patient does not have any ongoing symptoms of chest pain. His symptoms of dyspnea are improving with furosemide. Need for ischemic workup to be determined--probably pursue as an outpatient. (3) NSVT (nonsustained ventricular tachycardia): Code(s): I47.2 - Ventricular tachycardia Status: Acute Assessment and Plan: 6 day beat runs of V-tach noted on telemetry. Continue supplement potassium and check magnesium. (4) Presence of combination internal cardiac defibrillator (ICD) and pacemaker: Code(s): Z95.810 - Presence of automatic (implantable) cardiac defibrillator Status: Acute Assessment and Plan: Outpatient management Subjective Date/time seen: 02/25/21 20:03 Interval history: Follow-up for acute on chronic systolic CHF with reduced ejection fraction; bradycardia with significant heart block S/P Medtronic BiV-ICD implanted at [facility] on 08/06/19; hypertension, diabetes mellitus on insulin. Date of service 02/25/2021: Pt feeling better, a little AVENDANO walking around room, urinating alot, feels edema better. Did not diurese much according to I's and O's with furosemide 20 mg IV push b.i.d.. Hypokalemia addressed earlier today. Echo as below, EF 25-30% Review of Systems Constitutional: Constitutional: Denies fatigue and Denies weakness Eyes: Eyes: Reports no additional eye complaints ENT: Denies epistaxis Cardiovascular: Cardiovascular: Denies chest pain, Reports pedal edema and Reports leg edema Respiratory: Respiratory: Denies chest congestion and Reports dyspnea on exertion Gastrointestinal: Gastrointestinal: Denies abdominal pain Genitourinary: Genitourinary: Denies dysuria Musculoskeletal: Musculoskeletal: Reports no additional musculoskeletal complaints Integumentary/Breasts: Skin/Breast: Denies rash Neurologic: Denies confusion Psychiatric: Psychiatric: Denies confusion Exam Narrative: Very pleasant older male NAD lying at 30 degrees Const: General: comfortable and no acute distress HENMT: Mouth: Yes moist mucous membranes Eyes: EOM: EOMs intact bilaterally Neck: Neck: supple Resp: Effort & Inspection: normal respiratory effort Auscultation: clear to auscultation bilaterally and diminished lung sounds Cardio: Rate: regular rate Rhythm: regular rhythm Heart sounds: no murmurs GI: GI Palp: Yes Soft to palpation and No Tenderness to palpation present (GI) Neuro: Cognition (Neuro): normal cognition Speech: normal speech Extrem: General: edema and pedal edema Other: Moderate lower extremity edema Psych: Mental Status: mental status grossly normal Affect: normal affect Objective Data Vital Signs Vital Signs: Vital Signs - 24 hr
[2021-02-26] VITALS (16 sets, daily range): BP systolic 91–140; BP diastolic 57–80; PULSE 61–80; RESP 16–22; TEMP 36.4–36.8; O2SAT 96–100
[2021-02-26 00:24] LABS: Glucose Point of Care 55 mg/dl (65-105)
[2021-02-26] MEDS: DEXTROSE 50% 25 GM/50 ML SYRINGE IV PUSH ×2 (00:25→09:00)
[2021-02-26 00:46] LABS: Glucose Point of Care 115 mg/dl (65-105)
[2021-02-26 05:45] LABS: Anion Gap 8 mmol/L (8-16); Blood Urea Nitrogen 18 mg/dL (9-20); Calcium 8.5 mg/dL (8.4-10.2); Carbon Dioxide 29 mmol/L (22-30); Chloride 105 mmol/L (98-107); Estimated CRCL calculation 64 ml/min; Estimated Glomerular Filt Rate > 60; Glucose 64 mg/dL (65-110); Magnesium 1.9 mg/dL (1.6-2.3); Potassium 3.2 mmol/L (3.4-5.0); Sodium 142 mmol/L (137-145)
[2021-02-26 08:59] LABS: Glucose Point of Care 70 mg/dl (65-105)
[2021-02-26 08:59] LABS: Glucose Point of Care 66 mg/dl (65-105)
[2021-02-26] MEDS: ENOXAPARIN 40 MG/0.4 ML SYRINGE SUB-Q (09:09)
[2021-02-26] MEDS: ASPIRIN 81 MG ENTERIC TABLET PO (09:10)
[2021-02-26] MEDS: SPIRONOLACTONE 25 MG TABLET PO (09:10)
[2021-02-26] MEDS: carvediloL 6.25 MG TABLET PO ×2 (09:11→20:26)
[2021-02-26] MEDS: POTASSIUM CHLORIDE 20 MEQ TABLET PO (09:11)
[2021-02-26] MEDS: ATORVASTATIN 20 MG TABLET PO (09:11)
[2021-02-26] MEDS: FUROSEMIDE INJ 40 MG/4 ML VIAL IV PUSH ×2 (09:12→15:59)
[2021-02-26] MEDS: lisinopriL 5 MG TABLET PO (09:12)
[2021-02-26] MEDS: POTASSIUM CHLORIDE 20 MEQ TABLET.ER PO (09:30)
[2021-02-26 09:36] LABS: Glucose Point of Care 167 mg/dl (65-105)
[2021-02-26 11:46] LABS: Glucose Point of Care 161 mg/dl (65-105)
--- NOTE | 2021-02-26 12:05 | PM.IMPN ---
Progress Note: A&P Assessment and Plan (1) Acute on chronic systolic HF (heart failure): Code(s): I50.23 - Acute on chronic systolic (congestive) heart failure Status: Acute Assessment and Plan: Acute on chronic acute systolic HF. Patient states his symptoms are improving with the increased dose of Lasix -BNP elevated as well as troponin -continue IV Lasix, coreg and lisinopril. Spironolactone started 02/25/21. Patient states he has had this in the past which really helped him -repeat shows systolic dysfunction with calculated EF of 30%. He again has severe global hypokinesis (compared to echo in 2020). He had an ICD implanted at [facility] in the past. -patient's shortness of breath has improved with IV lasix therapy. No PNA or PE suspected at this time. No DVTs -no hx of kofi -cardiology onboard (2) Elevated troponin: Code(s): R77.8 - Other specified abnormalities of plasma proteins Status: Acute Assessment and Plan: Unclear significance. Pt has no CP now, ACS less likely -could be due to acute exacerbation of CHF -monitor on tele (3) Diabetes mellitus with neuropathy: Qualifiers: Diabetes mellitus type: type 2 Diabetes mellitus group home insulin use: without ocean transportation intermediary use Qualified Code(s): E11.40 - Type 2 diabetes mellitus with diabetic neuropathy, unspecified Code(s): E11.40 - Type 2 diabetes mellitus with diabetic neuropathy, unspecified Status: Acute Assessment and Plan: Last glucose 161 -continue SSI and levemir (at reduced dose) -A1c 7.6 (4) Essential (primary) hypertension: Code(s): I10 - Essential (primary) hypertension Status: Acute Assessment and Plan: Last bp 140/80 -continue coreg, spironolactone, lasix and lisinopril Subjective Date/time seen: 02/26/21 12:05 Interval history: Pt is a 70-year-old male here for CHF exacerbation. Patient was seen today and states he feels better every day. He has no further AVENDANO and thinks his LE swelling has improved on the left but the right still seems more swollen. He will not allow me to evaluate his feet due to orthodox reasons . He denies nausea, vomiting, fevers, chills, chest pain, or abdominal pain. He states he has been on spironolactone in the past which has improved his symptoms Exam Narrative: General: Well developed well nourished patient in NAD HEENT: normocephalic Neck: supple Neuro: Alert and oriented x4 CV:RRR. tele shows 2.79s of NSVT yesterday around 1400 Resp:CTA--no crackles or rhonchi heard. No conversational dyspnea Abd: Soft, non distended. No pain to palpation. Positive bowel sounds Extremities: Pitting edema noted bilaterally with no pain to palpation (improvement on the left). Chronic discoloration noted. Patient refused foot exam. Objective Data Vital Signs Vital Signs: Vital Signs - 24 hr 02/25/21 14:00 02/25/21 16:00 02/25/21 18:00 Temperature 98.5 F Pulse Rate 73 75 64 Respiratory Rate 14 Blood Pressure 107/64 Pulse Oximetry 96 02/25/21 20:00 02/25/21 22:00 02/25/21 23:08 Temperature 97.9 F 97.7 F Pulse Rate 79 70 70 Respiratory Rate 18 18 Blood Pressure 100/58 L 94/54 L Pulse Oximetry 96 99 02/26/21 00:00 02/26/21 02:00 02/26/21 04:00 Temperature 97.9 F Pulse Rate 68 61 65 Respiratory Rate 20 Blood Pressure 111/61 Pulse Oximetry 98 02/26/21 06:00 02/26/21 07:59 02/26/21 08:00 Temperature 97.8 F Pulse Rate 69 72 66 Respiratory Rate 18 Blood Pressure 140/80 Pulse Oximetry 96 02/26/21 09:11 02/26/21 10:00 Temperature Pulse Rate 76 75 Respiratory Rate Blood Pressure Pulse Oximetry Intake/Output Intake/Output: Intake & Output 02/23/21 02/24/21 02/25/21 02/26/21 23:59 23:59 23:59 23:59 Intake Total 830 1120 240 Output Total 820 538 2515 726 Balance -600 546 -388 -439 Meds/Results Medications: Active Medications Generic Name
--- NOTE | 2021-02-26 13:11 | PC.NURSE ---
On 02/26/21, the student, [Suzi Castro], provided care and completed [facility] documentation on this patient. I have reviewed the student's documentation and agree with the findings.
[2021-02-26 16:45] LABS: Glucose Point of Care 210 mg/dl (65-105)
--- NOTE | 2021-02-26 17:19 | PM.PNCARD ---
Progress Note: A&P Assessment and Plan (1) Acute CHF: Code(s): I50.9 - Heart failure, unspecified Status: Deleted Assessment and Plan: Patient presented to the hospital with worsening shortness of breath and lower extremity swelling. He reports that his furosemide was recently held. Patient has acute on chronic CHF with reduced ejection fraction. -patient reports significant improvement in symptoms. He has had good urine output, no clinical evidence CHF on exam today. Lungs are clear, lower extremity edema significantly improved. Will shift him from IV furosemide to oral. Would anticipate discharge perhaps tomorrow if he remains stable on oral diuretic. -continue beta víctor, JOSSY-inhibitor. -agree with the addition of spironolactone -supplement potassium to avoid hypokalemia (2) Elevated troponin: Code(s): R77.8 - Other specified abnormalities of plasma proteins Status: Acute Assessment and Plan: Patient's troponins (0.11, 0.66, 1.2 and 1.3) are elevated in the setting of CHF XR patient. No symptoms of ACS. EKG shows V paced rhythm. Have not been able to find cardiac catheterization records from [facility] about patient's previous ischemic workup. Patient does not have any ongoing symptoms of chest pain. His symptoms of dyspnea are improving with furosemide. Need for ischemic workup to be determined--probably pursue as an outpatient. (3) NSVT (nonsustained ventricular tachycardia): Code(s): I47.2 - Ventricular tachycardia Status: Acute Assessment and Plan: 6-8 beat runs of V-tach noted on telemetry yesterday. He did not have any recurrence of NSVT today. Continue to monitor daily BMP, magnesium and supplement with goals K+ 4.0, Mag 2.0 (4) Presence of combination internal cardiac defibrillator (ICD) and pacemaker: Code(s): Z95.810 - Presence of automatic (implantable) cardiac defibrillator Status: Acute Assessment and Plan: Outpatient management Subjective Date/time seen: 02/26/21 17:19 Review of Systems Constitutional: Constitutional: Denies fatigue and Denies weakness Eyes: Eyes: Reports no additional eye complaints ENT: Denies epistaxis Cardiovascular: Cardiovascular: Denies chest pain, Reports pedal edema, Reports leg edema and Reports dyspnea on exertion Respiratory: Respiratory: Denies chest congestion and Reports dyspnea on exertion Gastrointestinal: Gastrointestinal: Denies abdominal pain Genitourinary: Genitourinary: Denies dysuria Musculoskeletal: Musculoskeletal: Reports no additional musculoskeletal complaints Integumentary/Breasts: Skin/Breast: Denies rash Neurologic: Denies confusion and Denies weakness Psychiatric: Psychiatric: Denies confusion Endocrine: Endocrine: Denies fatigue Exam Const: General: comfortable and no acute distress; No confusion Orientation/consciousness: No confusion Other: Pleasant gentleman sitting up in the chair reading a book. Alert and oriented. Pleasant and cooperative. HENMT: Mouth: Yes moist mucous membranes Eyes: EOM: EOMs intact bilaterally Neck: Neck: supple Resp: Effort & Inspection: normal respiratory effort Auscultation: clear to auscultation bilaterally and diminished lung sounds Cardio: Rate: regular rate Rhythm: regular rhythm Heart sounds: no murmurs Neuro: General: No confusion Cognition (Neuro): normal cognition Speech: normal speech Extrem: General: edema and pedal edema Other: Moderate lower extremity edema Psych: Mental Status: mental status grossly normal Affect: normal affect Objective Data Vital Signs Vital Signs: Vital Signs - 24 hr 02/25/21 18:00 02/25/21 20:00 02/25/21 22:00 Temperature 36.6 C Pulse Rate 64 79 70 Respiratory Rate 18 Blood Pressure 100/58 L Pulse Oximetry
[2021-02-26] MEDS: INSULIN ASPART (*BKC) 100 UNITS/ML SUB-Q (17:23)
[2021-02-26 18:32] LABS: NT Pro B Type Natriuretic Pept 4620 pg/mL (5-100)
[2021-02-26 21:11] LABS: Glucose Point of Care 159 mg/dl (65-105)
[2021-02-27] VITALS (8 sets, daily range): BP systolic 95–131; BP diastolic 63–77; PULSE 67–83; RESP 16–20; TEMP 36.6–36.8; O2SAT 96–100
[2021-02-27 05:30] LABS: Basophils Percent Auto 0.8 % (0.2-1.2); Eosinophils Absolute Auto 0.2 K/mm3 (0-0.3); Eosinophils Percent Auto 4.3 % (0-4.4); Hematocrit 33.9 % (42.0-52.0); Hemoglobin 11.1 g/dL (14.0-18.0); Immature Granulocyte Absolute 0.01 K/mm3 (0.00-0.031); Immature Granulocyte Percent A 0.2 % (0-0.5); Lymphocytes Absolute Auto 1.36 K/mm3 (0.9-3.2); Lymphocytes Percent Auto 26.7 % (18.3-44.2); Mean Corpuscular HGB Conc 32.7 g/dl (32-36); Mean Corpuscular Hemoglobin 29.1 pg (26-34); Mean Corpuscular Volume 88.7 fl (80-100); Mean Platelet Volume 11.9 fl (7.4-10.4); Monocytes Absolute Auto 0.5 K/mm3 (0.1-0.6); Monocytes Percent Auto 9.8 % (2.6-8.5); Neutrophils Percent Auto 58.2 % (45.5-73.1); Platelet Count Result 198 k/mm3 (150-375); Red Blood Count 3.82 M/mm3 (4.6-6.20); White Blood Count 5.1 K/mm3 (4.5-10.0)
[2021-02-27 05:49] LABS: Anion Gap 7 mmol/L (8-16); Blood Urea Nitrogen 17 mg/dL (9-20); Calcium 8.9 mg/dL (8.4-10.2); Carbon Dioxide 29 mmol/L (22-30); Chloride 103 mmol/L (98-107); Estimated CRCL calculation 64 ml/min; Estimated Glomerular Filt Rate > 60; Glucose 148 mg/dL (65-110); Sodium 139 mmol/L (137-145)
[2021-02-27] MEDS: ENOXAPARIN 40 MG/0.4 ML SYRINGE SUB-Q (08:53)
[2021-02-27] MEDS: POTASSIUM CHLORIDE 20 MEQ TABLET.ER 40 MEQ PO (08:54)
[2021-02-27] MEDS: carvediloL 6.25 MG TABLET PO (08:55)
[2021-02-27] MEDS: lisinopriL 5 MG TABLET PO (08:55)
[2021-02-27] MEDS: FUROSEMIDE 40 MG TABLET PO (08:55)
[2021-02-27] MEDS: ASPIRIN 81 MG ENTERIC TABLET PO (08:55)
[2021-02-27] MEDS: SPIRONOLACTONE 25 MG TABLET PO (08:55)
[2021-02-27] MEDS: ATORVASTATIN 20 MG TABLET PO (08:55)
--- NOTE | 2021-02-27 09:10 | PM.DS ---
DS: Admitting Diagnosis Discharge Date 02/27/21 Admitting Diagnosis chf exacerbation DS: Discharge Diagnosis Discharge Diagnosis (1) Acute on chronic systolic HF (heart failure): Code(s): I50.23 - Acute on chronic systolic (congestive) heart failure Status: Acute Assessment and Plan: Acute on chronic acute systolic HF. Patient states his symptoms are improving and he feels much better -continue aspirin, lasix, atorvastatin, spironolactone as well as lisionpril at discharge -repeat shows systolic dysfunction with calculated EF of 30%. He again has severe global hypokinesis (compared to echo in 2020). He had an ICD implanted at [facility] in the past. -patient's shortness of breath has improved with lasix therapy. No PNA or PE suspected at this time. No DVTs -no hx of kofi -cardiology was consulted during his hospitalization. (2) Elevated troponin: Code(s): R77.8 - Other specified abnormalities of plasma proteins Status: Acute Assessment and Plan: Unclear significance. Pt had no CP. ACS less likely -likely due to acute exacerbation of CHF (3) Diabetes mellitus with neuropathy: Qualifiers: Diabetes mellitus type: type 2 Diabetes mellitus termite control representative insulin use: without skilled nursing use Qualified Code(s): E11.40 - Type 2 diabetes mellitus with diabetic neuropathy, unspecified Code(s): E11.40 - Type 2 diabetes mellitus with diabetic neuropathy, unspecified Status: Acute Assessment and Plan: Last glucose 181 -continue home regimen -A1c 7.6 (4) Essential (primary) hypertension: Code(s): I10 - Essential (primary) hypertension Status: Acute Assessment and Plan: Last bp 120/72 at d/c DS: Summary Hospital Course Hospital Course: DOS 02/27/21 Patient is a 70-year-old male with a history of CHF and diabetes who presented emergency room on 02/23/2021 for lower extremity swelling and dyspnea on exertion. Vitals in the ER were temperature 36.2? C, pulse 98, respiratory rate 16, blood pressure 132/85, pulse ox is 98. BNP elevated 5610, troponins elevated 0.109--> 0.657--> 1.2--> 1.330. chest x-ray showed small pleural effusions and airspace opacities consistent with atelectasis versus pneumonia. Patient was admitted to the hospitalist service and started on IV Lasix and Cardiology was consulted. He had an echocardiogram that was done which showed persistent decreased EF with hypokinesis. He had no chest pain during his stay which made ACS less likely. His symptoms of shortness of breath and leg swelling improved with Lasix therapy. Cardiology was consulted and adjusted his medications. Patient was hospitalized for many days while diuresing but the day of discharge was feeling much better him back to his baseline. I spoke with him about his new medications and the need for repeat labs. I also called spoke with TRENTON Mallory with his primary care physician office. They plan to recheck a BMP in 1 week and follow up with him outpatient. I discussed the changes of medication. The day of discharge she was feeling better and ready to go. He was educated about the worrisome signs and symptoms to come back to emergency room for and was discharged stable condition. Status at Discharge Functional status at discharge: independent ambulation Overall status at discharge: patient is progressing back to baseline Time Spent with Patient Time attestation: Total time spent providing and/or coordinating discharge services:38 min Time spent: Greater than 30 minutes Exam Narrative: General: Well developed well nourished patient in NAD HEENT: normocephalic Neck: supple Neuro: Alert and oriented x4 CV:RRR. tele showing paced rhythm Resp:CTA--no crackles or rhonchi heard. No conversational dyspnea Abd: Soft, non distended. No pain to palpation. Positive bowel sounds Extremities: Pitting edema noted bilaterally with no pain to palpation (improve
--- NOTE | 2021-02-27 09:54 | PM.PNCARD ---
Progress Note: A&P Assessment and Plan (1) Acute CHF: Code(s): I50.9 - Heart failure, unspecified Status: Deleted Assessment and Plan: Patient presented to the hospital with worsening shortness of breath and lower extremity swelling. He reports that his furosemide was recently held. Patient has acute on chronic CHF with reduced ejection fraction. -patient reports significant improvement in symptoms. He has had good urine output, no clinical evidence CHF on exam today. Lungs are clear, lower extremity edema significantly improved, essentially resolved. -On oral furosemide now -continue beta víctor, JOSSY-inhibitor. -agree with the addition of spironolactone -electrolytes stable (2) Elevated troponin: Code(s): R77.8 - Other specified abnormalities of plasma proteins Status: Acute Assessment and Plan: Patient's troponins (0.11, 0.66, 1.2 and 1.3) are elevated in the setting of CHF XR patient. No symptoms of ACS. EKG shows V paced rhythm. Have not been able to find cardiac catheterization records from [facility] about patient's previous ischemic workup. Patient does not have any ongoing symptoms of chest pain. His symptoms of dyspnea are improving with furosemide. Need for ischemic workup to be determined--probably pursue as an outpatient. (3) NSVT (nonsustained ventricular tachycardia): Code(s): I47.2 - Ventricular tachycardia Status: Acute Assessment and Plan: 6-8 beat runs of V-tach noted on telemetry 2 days ago. He did not have any recurrence of NSVT today. BMP in 1 week as an outpatient. (4) Presence of combination internal cardiac defibrillator (ICD) and pacemaker: Code(s): Z95.810 - Presence of automatic (implantable) cardiac defibrillator Status: Acute Assessment and Plan: Outpatient management Subjective Date/time seen: 02/27/21 09:54 Interval history: Follow-up for acute on chronic systolic CHF with reduced ejection fraction; bradycardia with significant heart block S/P Medtronic BiV-ICD implanted at [facility] on 08/06/19; hypertension, diabetes mellitus on insulin. Date of service 02/25/2021: Pt feeling better, a little AVENDANO walking around room, urinating alot, feels edema better. Did not diurese much according to I's and O's with furosemide 20 mg IV push b.i.d.. Hypokalemia addressed earlier today. Echo as below, EF 25-30% Date of service 02/27/1021: Patient continues to feel well today. He denies any shortness of breath, chest pain, swelling. Stable from a cardiac perspective and appropriate for discharge home today. Review of Systems Constitutional: Constitutional: Denies fatigue and Denies weakness Eyes: Eyes: Reports no additional eye complaints ENT: Denies epistaxis Cardiovascular: Cardiovascular: Denies chest pain, Reports pedal edema, Reports leg edema and Reports dyspnea on exertion Respiratory: Respiratory: Denies chest congestion and Reports dyspnea on exertion Gastrointestinal: Gastrointestinal: Denies abdominal pain Genitourinary: Genitourinary: Denies dysuria Musculoskeletal: Musculoskeletal: Reports no additional musculoskeletal complaints Integumentary/Breasts: Skin/Breast: Denies rash Neurologic: Denies confusion and Denies weakness Psychiatric: Psychiatric: Denies confusion Endocrine: Endocrine: Denies fatigue Exam Narrative: Very pleasant older male lying comfortably in bed. Alert oriented Const: General: comfortable and no acute distress; No confusion Orientation/consciousness: No confusion HENMT: Mouth: Yes moist mucous membranes Eyes: EOM: EOMs intact bilaterally Neck: Neck: supple Resp: Effort & Inspection: normal respiratory effort Auscultation: clear to auscultation bilaterally and diminished lung sounds Cardio: Rate:
--- NOTE | 2021-02-27 12:02 | PC.NURSE ---
On 02/27/21, the student, [Constance Bender], provided care and completed [facility] documentation on this patient. I have reviewed the student's documentation and agree with the findings.
[2021-02-27 12:17] LABS: Glucose Point of Care 181 mg/dl (65-105)
== END 2021-02-27 12:54 | disposition home or self-care (01) | DRG 291 ==
LOC: ANHED 15:39 → ANHIMU 02-24 00:49
PROVIDERS: General Practice; Nurse Practitioner; Admitting Provider Internal Medicine; Emergency Provider Emergency Medicine; PCP Family Medicine; Visit Provider Physician Assistant
DX: I11.0 Hypertensive heart disease with heart failure (principal); I50.23 Acute on chronic systolic (congestive) heart failure; I47.2 Ventricular tachycardia; E11.42 Type 2 diabetes mellitus with diabetic polyneuropathy; E78.5 Hyperlipidemia, unspecified; E55.9 Vitamin D deficiency, unspecified; E11.51 Type 2 diabetes mellitus with diabetic peripheral angiopathy without gangrene; F32.9 Major depressive disorder, single episode, unspecified; Z95.810 Presence of automatic (implantable) cardiac defibrillator; Z79.4 Long term (current) use of insulin; Z86.711 Personal history of pulmonary embolism
CPT/HCPCS: 36415; 71046; 80048; 80053; 82948; 83036; 83605; 83615; 83735; 83880; 84443; 84484; 85025; 85027; 85610; 85730; 93005; 93306; 93970; 96374; 99285; A9270; J1650; J1815; J1940; J2270

== ENCOUNTER 2021-04-08 07:47 | Observation (INO) | payer OTHER, SELFPAY ==
[2021-04-08] VITALS (9 sets, daily range): BP systolic 103–137; BP diastolic 59–86; PULSE 79–87; RESP 14–18; TEMP 36.1; O2SAT 95–100
--- NOTE | ~2021-04-08 | XR_ITS ---
XR chest 1V portable 04/08/2021 12:16 Indication: Dyspnea. Procedure: AP portable chest Comparison: Comparison to multiple prior studies sequentially, with oldest reviewed study dated 11/04. Findings: There is bilateral airspace disease of the right mid and bilateral lower lungs. Small bilat eral pleural effusions. Cardiomegaly. Pacemaker leads are stable. No pneumothorax. Impression: 1: Bilateral asymmetric airspace disease which may represent edema or pneumonia. 2: Small pleural effusions. Reviewed, dictated and finalized at location [facility] [employer] Impression: 1: Bilateral asymmetric airspace disease which may represent edema or pneumonia . 2: Small pleural effusions.
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
--- NOTE | 2021-04-08 11:45 | ECG_ITS ---
Measurements Intervals [place] Rate: 80 P: 50 CT: 225 QRS: -88 QRSD: 181 T: 81 QT: 455 QTc: 528 Interpretive Statements ATRIAL SENSE- ELECTRONIC VENTRICULAR PACEMAKER NO FURTHER INTERPRETATION IS POSSIBLE ATYPICAL ECG Electronically Signed On 04-08-2021 13:45:05 HEM MARKER by Jovanni Goodman D.O.
[2021-04-08 12:50] LABS: Basophils Percent Auto 0.4 % (0.2-1.2); Eosinophils Percent Auto 0.6 % (0-4.4); Hematocrit 37.7 % (42.0-52.0); Hemoglobin 12.2 g/dL (14.0-18.0); Immature Granulocyte Absolute 0.01 K/mm3 (0.00-0.031); Immature Granulocyte Percent A 0.2 % (0-0.5); Lymphocytes Absolute Auto 0.63 K/mm3 (0.9-3.2); Lymphocytes Percent Auto 12.7 % (18.3-44.2); Mean Corpuscular HGB Conc 32.4 g/dl (32-36); Mean Corpuscular Hemoglobin 28.5 pg (26-34); Mean Corpuscular Volume 88.1 fl (80-100); Mean Platelet Volume 10.8 fl (7.4-10.4); Monocytes Absolute Auto 0.6 K/mm3 (0.1-0.6); Monocytes Percent Auto 12.5 % (2.6-8.5); Neutrophils Absolute Auto 3.7 K/mm3 (1.3-6.7); Neutrophils Percent Auto 73.6 % (45.5-73.1); Platelet Count Result 211 k/mm3 (150-375); Red Blood Count 4.28 M/mm3 (4.6-6.20); Red Cell Distribution Width 14.5 % (11.5-14.5)
[2021-04-08 13:02] LABS: Anion Gap 5 mmol/L (8-16); Blood Urea Nitrogen 21 mg/dL (9-20); Calcium 8.1 mg/dL (8.4-10.2); Carbon Dioxide 28 mmol/L (22-30); Chloride 97 mmol/L (98-107); Estimated CRCL calculation 79 ml/min; Estimated Glomerular Filt Rate > 60; Glucose 223 mg/dL (65-110); Potassium 3.9 mmol/L (3.4-5.0); Sodium 130 mmol/L (137-145)
[2021-04-08] MEDS: FUROSEMIDE INJ 40 MG/4 ML VIAL IV PUSH ×2 (13:05→21:43)
[2021-04-08 13:11] LABS: NT Pro B Type Natriuretic Pept 8940 pg/mL (5-100)
[2021-04-08 13:17] LABS: Add Urine Microscopic? YES; Appearance Urine Clear (Clear); Bilirubin Urine Negative (Negative); Blood Urine Negative (Negative); Color Urine Yellow (Yellow); Glucose Urine UA 1+ mg/dL (Negative); Hyaline Casts Urine 15-19 /lpf; Ketones Urine Trace mg/dL (Negative); Leukocyte Esterase Ur Negative LEU/UL (Negative); Mucus Urine Rare /lpf; Nitrate Urine Negative (Negative); Protein Urine 1+ mg/dL (Negative); RBC Urine 0-2 /hpf (0-2); Specific Grav Ur 1.024 (1.001-1.035); WBC Urine 0-3 /hpf
[2021-04-08 21:50] LABS: Glucose Point of Care 202 mg/dl (65-105)
--- NOTE | 2021-04-08 23:55 | PM.IMHP ---
H&P: HPI History of Present Illness Date/Time: 04/08/21 1900 this is a 70-year-old male patient who has a history of congestive heart failure. The patient came to the emergency room for persistent shortness of breath. The patient stated that he has orthopnea he does not wear oxygen at home. The patient stated that he took his medication last night but did not take any this morning. The patient stated that he did not eat anything differently in that he does not even have salt in his home. The patient stated for the last 2 days he was having difficulty urinating because of his edematous scrotum. The swelling is the same today so he decided to come to the emergency room. He is not requiring any oxygen. His pressure control supervisor this to the [facility]. The patient was given IV Lasix with some relief. However the patient did not feel comfortable going home at this time. Cardiology has not been notified at this time. Chest x-ray was read as bilateral asymmetric airspace disease which may represent edema or pneumonia. Small pleural effusions. Patient has 4+ pitting edema to lower extremities. The patient did have a venous Doppler on 02/25/2021 which shows no DVTs. However the patient was noted to have a partial thrombus of the superficial left greater saphenous vein. The patient is being admitted for observation date of service of 04/08/2021. Chief Complaint: swelling to legs and shortness of breath Review of Systems Review of Systems: All systems reviewed & are unremarkable except as noted in HPI and below Constitutional: Constitutional: Reports as per HPI and Reports no additional constitutional complaints Eyes: Eyes: Reports as per HPI and Reports no additional eye complaints ENT: Reports system reviewed and no additional complaints, except as documented and Reports Normal hearing present Cardiovascular: Cardiovascular: Reports no additional cardiovascular complaints Respiratory: Respiratory: Reports no additional respiratory complaints and Reports no additional respiratory complaints Gastrointestinal: Gastrointestinal: Reports as per HPI and Reports no additional gastrointestinal complaints Musculoskeletal: Musculoskeletal: Reports no additional musculoskeletal complaints Integumentary/Breasts: Skin/Breast: Reports system reviewed and no additional complaints, except as docu and Reports as per HPI Neurologic: Reports system reviewed and no additional complaints, except as documented, Reports as per HPI and Reports Normal hearing present Psychiatric: Psychiatric: Reports no additional psychiatric complaints and Reports as per HPI Endocrine: Endocrine: Reports no additional endocrine complaints Hematologic/Lymphatic: Hematologic/Lymphatic: Reports no additional hematologic/lymphatic complaints Allergic/Immunologic: Allergic/Immunologic: Reports no additional allergic/immunologic complaints [facility] Past Medical History Medical History Apical mural thrombus CHF (congestive heart failure) Diabetes mellitus Diabetes mellitus with neuropathy Diabetic ulcer of right foot associated with diabetes mellitus due to underlying condition Dyslipidemia Essential (primary) hypertension NICM (nonischemic cardiomyopathy) NSVT (nonsustained ventricular tachycardia) PAT (paroxysmal atrial tachycardia) Peripheral arterial disease Shoulder fracture, left Staph infection thigh Vitamin D deficiency Surgical History Surgical History History of complete ray amputation of third toe of right foot 05/2020 - due to osteomyelitis History of permanent cardiac pacemaker placement Medtronic BiV-ICD placed at [facility] 08/06/19 Family History Family History Other No problems noted. Sibling Acute myocardial infarction Mother Lung cancer Social History Social History (Reviewed
[2021-04-09] VITALS: BP 109/94; PULSE 84; RESP 18; O2SAT 99
[2021-04-09 00:55] VITALS: BMI 28.5
--- NOTE | 2021-04-09 01:01 | ADMGEN ---
This patient, Dimitry Pa, was admitted to [facility] Surg Room 316-01. Patient/family oriented to hospital policies and general routines including ID bracelet, bed and alarms, visiting hours, pain management, procedures, bathroom and other care routines, personal items, smoking policy, room service/diet, and visiting hours. Information on how to activate the Rapid Response Team has been discussed. Patient/Family are encouraged to report perceived risks to care and to ask questions if they do not understand what they are told or what they should do.
[2021-04-09 04:00] VITALS: BP 137/80; PULSE 88; RESP 18; TEMP 37.2; O2SAT 100
[2021-04-09 05:41] VITALS: BP 137/80; PULSE 88; RESP 18; TEMP 37.1; O2SAT 100
[2021-04-09 06:45] LABS: Basophils Percent Auto 0.4 % (0.2-1.2); Eosinophils Absolute Auto 0.1 K/mm3 (0-0.3); Eosinophils Percent Auto 1.3 % (0-4.4); Hematocrit 36.2 % (42.0-52.0); Hemoglobin 11.7 g/dL (14.0-18.0); Immature Granulocyte Absolute 0.01 K/mm3 (0.00-0.031); Immature Granulocyte Percent A 0.2 % (0-0.5); Mean Corpuscular HGB Conc 32.3 g/dl (32-36); Mean Corpuscular Hemoglobin 28.2 pg (26-34); Mean Corpuscular Volume 87.2 fl (80-100); Mean Platelet Volume 11.2 fl (7.4-10.4); Monocytes Absolute Auto 0.5 K/mm3 (0.1-0.6); Neutrophils Absolute Auto 3.4 K/mm3 (1.3-6.7); Neutrophils Percent Auto 74.1 % (45.5-73.1); Platelet Count Result 189 k/mm3 (150-375); Red Blood Count 4.15 M/mm3 (4.6-6.20); Red Cell Distribution Width 14.2 % (11.5-14.5); White Blood Count 4.6 K/mm3 (4.5-10.0)
[2021-04-09 06:54] LABS: Alanine Aminotransferase 27 U/L (4-50); Albumin Level 2.8 g/dL (3.5-5.1); Alkaline Phosphatase 248 U/L (38-126); Anion Gap 6 mmol/L (8-16); Aspartate Amino Transferase 40 U/L (17-59); Bilirubin,Total 0.7 mg/dL (0.2-1.3); Blood Urea Nitrogen 16 mg/dL (9-20); Calcium 7.8 mg/dL (8.4-10.2); Carbon Dioxide 28 mmol/L (22-30); Chloride 97 mmol/L (98-107); Estimated CRCL calculation 90 ml/min; Estimated Glomerular Filt Rate > 60; Glucose 190 mg/dL (65-110); Magnesium 1.5 mg/dL (1.6-2.3); Potassium 3.3 mmol/L (3.4-5.0); Sodium 131 mmol/L (137-145)
[2021-04-09] MEDS: SPIRONOLACTONE 25 MG TABLET PO (09:49)
[2021-04-09] MEDS: ASPIRIN 81 MG ENTERIC TABLET PO (09:49)
[2021-04-09] MEDS: MAGNESIUM OXIDE 200 MG TABLET 600 MG PO (09:49)
[2021-04-09] MEDS: FUROSEMIDE INJ 40 MG/4 ML VIAL IV PUSH (09:49)
[2021-04-09] MEDS: ENOXAPARIN 40 MG/0.4 ML SYRINGE SUB-Q (09:49)
[2021-04-09] MEDS: ATORVASTATIN 20 MG TABLET PO (09:49)
[2021-04-09 09:50] VITALS: PULSE 88
[2021-04-09] MEDS: carvediloL 6.25 MG TABLET PO (09:50)
[2021-04-09] MEDS: lisinopriL 5 MG TABLET PO (09:51)
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
[2021-04-09] MEDS: POTASSIUM CHLORIDE 20 MEQ TABLET.ER PO (12:44)
--- NOTE | 2021-04-09 13:07 | PM.DS ---
DS: Admitting Diagnosis Discharge Date 04/09/2021 Admitting Diagnosis swelling to legs and shortness of breath DS: Discharge Diagnosis Discharge Diagnosis (1) Acute on chronic systolic HF (heart failure): Code(s): I50.23 - Acute on chronic systolic (congestive) heart failure Status: Acute Assessment and Plan: His last echo was on 02/24/2021 read as the following 1. Complete two-dimensional, color flow and Doppler transthoracic echocardiogram is performed. 2. Mild left ventricular enlargement with moderate eccentric hypertrophy. Severe global hypokinesis sparing the base, with akinesis of the apex, apical lateral and apical inferior segments. Calculated ejection fraction is 30 3% and visually is 25-30%. Grade 2 diastolic dysfunction is present. The global longitudinal strain is severely diminished at -9%. 3. Right ventricular chamber dimension is moderately enlarged with mild dysfunction. 4. Left atrial chamber dimension is moderately enlarged. 5. There is mild aortic valve calcification without stenosis. 6. There is moderate mitral valve regurgitation. 7. There is moderate tricuspid valve regurgitation. 8. Moderate pulmonary hypertension, estimated pulmonary arterial systolic pressure is 49 mmHg. 9. Indeterminate rhythm. Continue with IV Lasix. Continue with Coreg and Prinivil and Aldactone. May consider consulting Cardiology for further recommendations. (2) Diabetes mellitus with neuropathy: Qualifiers: Diabetes mellitus intermission coordinator insulin use: without intermission coordinator use Diabetes mellitus type: type 2 Qualified Code(s): E11.40 - Type 2 diabetes mellitus with diabetic neuropathy, unspecified Code(s): E11.40 - Type 2 diabetes mellitus with diabetic neuropathy, unspecified Status: Acute Assessment and Plan: Accu-Cheks AC and HS. Continue with long-acting insulin. (3) Dyslipidemia: Code(s): E78.5 - Hyperlipidemia, unspecified Status: Acute Assessment and Plan: Continue with atorvastatin DS: Summary Hospital Course Reason for hospitalization: this is a 70-year-old male patient who has a history of congestive heart failure. The patient came to the emergency room for persistent shortness of breath. The patient stated that he has orthopnea he does not wear oxygen at home. The patient stated that he took his medication last night but did not take any this morning. The patient stated that he did not eat anything differently in that he does not even have salt in his home. The patient stated for the last 2 days he was having difficulty urinating because of his edematous scrotum. The swelling is the same today so he decided to come to the emergency room. He is not requiring any oxygen. His hot air furnace installer and repairer [facility] to [facility]. The patient was given IV Lasix with some relief. However the patient did not feel comfortable going home at this time. Cardiology has not been notified at this time. Chest x-ray was read as bilateral asymmetric airspace disease which may represent edema or pneumonia. Small pleural effusions. Patient has 4+ pitting edema to lower extremities. The patient did have a venous Doppler on 02/25/2021 which shows no DVTs. However the patient was noted to have a partial thrombus of the superficial left greater saphenous vein. The patient is being admitted for observation date of service of 04/08/2021. Chief Complaint: swelling to legs and shortness of breath Hospital Course: Patient was seen by Cardiology stated patient is feeling better edema has improved switched him over to oral Lasix from IV Lasix and continue lisinopril 5 mg q.day, spironolactone 25 mg q.day, and Coreg 6.25 mg b.i.d. patient is clinically stable will discharge the patient will follow-up with his hot air furnace installer and repairer and primary care. Status at Discharge Functional status at discharge: independent ambulation Overall status at discharge: patient is back to baseline Srinivas
== END 2021-04-09 14:00 | disposition home or self-care (01) ==
LOC: ANHED 15:02 → ANH3MEDSUR 04-09 08:10
PROVIDERS: Nurse Practitioner; Physician Assistant; Admitting Provider Internal Medicine; Emergency Provider General Practice; PCP Family Medicine; Visit Provider Family Medicine
DX: I11.0 Hypertensive heart disease with heart failure (principal); I50.23 Acute on chronic systolic (congestive) heart failure; R06.02 Shortness of breath; N50.89 Other specified disorders of the male genital organs; E11.40 Type 2 diabetes mellitus with diabetic neuropathy, unspecified; E78.5 Hyperlipidemia, unspecified; I42.8 Other cardiomyopathies; I34.0 Nonrheumatic mitral (valve) insufficiency; I36.1 Nonrheumatic tricuspid (valve) insufficiency; I70.0 Atherosclerosis of aorta; I47.1 Supraventricular tachycardia; E55.9 Vitamin D deficiency, unspecified; E11.51 Type 2 diabetes mellitus with diabetic peripheral angiopathy without gangrene; Z79.4 Long term (current) use of insulin; Z79.82 Long term (current) use of aspirin; Z95.810 Presence of automatic (implantable) cardiac defibrillator
CPT/HCPCS: 36415; 71045; 80048; 80053; 81001; 82248; 82728; 82948; 83735; 83880; 84443; 85025; 93005; 96372; 96374; 96376; 99285; A9270; G0378; J1650; J1940

== ENCOUNTER 2021-05-13 23:07 | Inpatient (IN) | payer OTHER, SELFPAY ==
--- NOTE | ~2021-05-13 | US_ITS ---
EXAMINATION: US right upper quadrant DATE: 05/16/2021 10:34 INDICATION: Abnormal liver function tests. TECHNIQUE: Multiple grayscale and Doppler ultrasound images of the abdomen were obtained. COMPARISON: CT abdomen and pelvis 05/14/2021 FINDINGS: The visualized portions of the head and body of the pancreas are normal. The liver is gorge l without focal lesion. No liver surface nodularity. There is normal flow in main portal vein. The ga llbladder is normal in size. No gallstones. Gallbladder wall thickening is likely secondary to inters titial edema. The common duct is normal and measures 3 mm. There is a small volume of ascites. There is a moderate-sized right pleural effusion. IMPRESSION: 1. Small volume of ascites. 2. Moderate-sized right pleural effusion. 3. Gallbladder wall thickening, likely secondary to interstitial edema. Reviewed, dictated and finalized at location A. EW ASSISTANT
--- NOTE | ~2021-05-13 | XR_ITS ---
EXAMINATION: XR chest 1V portable DATE: 05/16/2021 06:03 INDICATION: Pneumonia. TECHNIQUE: A single frontal view of the chest was obtained. COMPARISON: Chest single view 05/13/2021, CT abdomen and pelvis 05/14/2021 FINDINGS: There are moderate-sized pleural effusions. There are airspace opacities in all right lung zones and in left mid and lower lung zones with a basilar predominance. A calcified left lung nodule and calcified left hilar lymph nodes are consistent with old granulomatous disease. No pneumothorax. Cardiomegaly is noted. There is a left chest pacer/fibrillator with leads in right atrium, right vent ricle, and coronary sinus. There is an old healed fracture of proximal left humerus. IMPRESSION: 1. Moderate-sized pleural effusions. 2. Airspace opacities in all right lung zones and in left mid and lower zones with a basilar predomin ance, likely a combination of pulmonary edema and atelectasis. Pneumonia cannot be excluded. 3. Cardiomegaly. Reviewed, dictated and finalized at location A. TRODE CLEANER IMPRESSION: 1. Moderate-sized pleural effusions. 2. Airspace opacities in all right lung zones and in left mid and lower zones w ith a basilar predominance, likely a combination of pulmonary edema and atelect asis. Pneumonia cannot be excluded. 3. Cardiomegaly.
--- NOTE | ~2021-05-13 | XR_ITS ---
XR chest 1V portable DATE: 05/13/2021 23:46 INDICATION: Cough, shortness of breath, chest pressure 2 weeks. History of congestive heart failure, hypertension TECHNIQUE: Portable AP chest views on 05/13/2021 at 2340 and 2341 hours COMPARISON: 04/08/2021 portable AP chest FINDINGS: There is cardiomegaly. There is pulmonary vascular congestion and redistribution, prominenc e of minor fissure, consistent with subpleural edema, bilateral predominantly central and lower lung pulmonary infiltrates and small pleural effusions, consistent with congestive heart failure and pulmo nary edema. There is a triple lead pacemaker/defibrillator. Aortic calcification. IMPRESSION: Congestive heart failure, pulmonary edema, increased since 04/08/2021 Reviewed, dictated and finalized at location A. ORK CABLER IMPRESSION: Congestive heart failure, pulmonary edema, increased since 04/08/20 21
--- NOTE | ~2021-05-13 | CT_ITS ---
EXAMINATION: CT abdomen pelvis wo con DATE: 05/14/2021 02:12 INDICATION: Abdomen pain TECHNIQUE: Computed tomography (CT) of the abdomen and pelvis was performed without intravenous contr ast. The dose-length product was 800.03 mGy-cm. Automated exposure control and iterative reconstructi on technique were employed. COMPARISON: CT dated 07/13/2019. FINDINGS: Moderate bilateral pleural effusions with associated compressive atelectasis. Heart size no rmal. Pacemaker leads are present. There is diffuse subcutaneous edema. There is diffuse mesenteric e angelia, consistent with anasarca. Nonobstructive bowel gas pattern. There are nonobstructing bilateral renal stones. There is extensive mesenteric atherosclerosis. Small amount of ascites. There is genera lized demineralization. Moderate lumbar spondylosis. No free air. No localized walled off fluid colle ction to suggest abscess. No lymphadenopathy. IMPRESSION: 1. Anasarca characterized by pleural effusions, diffuse subcutaneous edema and mesenteric edema. 2: Nonobstructing bilateral nephrolithiasis. Reviewed, dictated and finalized at location B. TH INSURANCE AGENT
--- NOTE | ~2021-05-13 | XR_ITS ---
EXAMINATION: XR foot RT min 3V DATE: 05/18/2021 13:17 INDICATION: Diabetic foot ulcer. TECHNIQUE: 4 views of right foot were obtained. COMPARISON: Right foot radiographs 07/28/2020 FINDINGS: There is amputation of third ray at the diaphysis of the metatarsal. Distal half of fifth m etatarsal is absent. There is absence of base of fifth proximal phalanx. There are worsened erosions of head of fourth metatarsal. There is periosteal reaction of the diaphyses of the first, second, and fourth metatarsals with worsening at second metatarsal. There is severe arthritis of first and secon d metatarsophalangeal joints. Again seen is a transverse fracture at the ankylosis site of second pro ximal interphalangeal joint with nonunion. There is mild polyarticular osteoarthritis involving some of the interphalangeal joints and midfoot joints. There are enthesophytes at the posterior and planta r aspects of calcaneal tuberosity. IMPRESSION: 1. Worsened erosions at head of fourth metatarsal, consistent with osteomyelitis. 2. Stable severe arthritis of first and second metatarsophalangeal joints, likely chronic septic arth ritis. Reviewed, dictated and finalized at location A. HING EXAMINER IMPRESSION: 1. Worsened erosions at head of fourth metatarsal, consistent with osteomyeliti s. 2. Stable severe arthritis of first and second metatarsophalangeal joints, like ly chronic septic arthritis.
--- NOTE | ~2021-05-13 | XR_ITS ---
EXAMINATION: XR foot LT min 3V DATE: 05/18/2021 13:17 INDICATION: Left foot diabetic ulcer. TECHNIQUE: 4 views of left foot were obtained. COMPARISON: Left second digit radiographs 11/22/2008 FINDINGS: There is ankylosis of second proximal and middle phalanges. There are acute erosions of sec ond distal phalanx with pathologic fracture. There is moderate hallux valgus. There is moderate osteo arthritis of first metatarsophalangeal joint. There is chronic bone volume loss of the phalanges of t he second through fifth digits. There are chronic erosions of base of first proximal phalanx and head of first metacarpal. There are chronic erosions of the heads of second, fourth, and fifth metatarsal s. There is mild midfoot osteoarthritis. There are enthesophytes at the posterior and plantar aspects of calcaneal tuberosity. IMPRESSION: 1. Acute osteomyelitis involving second distal phalanx with pathologic fracture. 2. Chronic-appearing erosions and deformities involving all of the rays, likely chronic osteomyelitis . Reviewed, dictated and finalized at location A. GER ACQUISITION IMPRESSION: 1. Acute osteomyelitis involving second distal phalanx with pathologic fracture . 2. Chronic-appearing erosions and deformities involving all of the rays, likely chronic osteomyelitis.
--- NOTE | ~2021-05-13 | XR_ITS ---
EXAMINATION: XR chest 1V portable DATE: 05/20/2021 06:17 INDICATION: Pneumonia. TECHNIQUE: A single frontal view of the chest was obtained. COMPARISON: Chest single view 05/16/2021, CT abdomen and pelvis 05/14/2021 FINDINGS: There is a diffuse interstitial pattern in the lungs. There are airspace opacities in the m id and lower lung zones, worst in right midlung zone. There are small pleural effusions. No pneumotho rax. Cardiomegaly is noted. There is a left chest pacer/defibrillator with leads in right atrium, rig ht ventricle, and coronary sinus. IMPRESSION: 1. Improved diffuse lung disease, consistent with pulmonary edema without or with superimposed pneumo misty. 2. Improved small pleural effusions. 3. Cardiomegaly. Reviewed, dictated and finalized at location E. NCIAL ASSISTANCE ADVISOR IMPRESSION: 1. Improved diffuse lung disease, consistent with pulmonary edema without or wi th superimposed pneumonia. 2. Improved small pleural effusions. 3. Cardiomegaly.
--- NOTE | ~2021-05-13 | US_ITS ---
EXAMINATION: US arterial ankle brachial ind DATE: 05/18/2021 14:10 INDICATION: Left foot ulcer. TECHNIQUE: Segmental pressures and plethysmographic and Doppler waveforms of the brachial and lower e xtremity arteries were obtained. COMPARISON: ABIs 05/20/2020 FINDINGS: Right and left brachial artery pressures of 121 mm Hg and 126 mm Hg, respectively, are concordant (no rmal difference <= 30 mmHg). The right ankle-brachial index (THOMAS) could not be measured due to inability to cuff occlude the poste rior tibial artery (normal >= 0.9-1.0). The right great toe-brachial index (TBI) is 0.79 (normal >= 0 .65). Arterial Doppler waveforms are biphasic at the ankle. The left THOMAS could not be measured due to inability to cuff occlude the posterior tibial artery. The left TBI is 0.43. Arterial Doppler waveforms are biphasic at the ankle. IMPRESSION: 1. Decreased left TBI, normal right TBI, and nondiagnostic ABIs, consistent with left-sided arterial occlusive disease. Reviewed, dictated and finalized at location A. RVATIONS AND TICKETING AGENT IMPRESSION: 1. Decreased left TBI, normal right TBI, and nondiagnostic ABIs, consistent wit h left-sided arterial occlusive disease.
--- NOTE | ~2021-05-13 | XR_ITS ---
EXAMINATION: XR chest PICC line DATE: 05/20/2021 09:59 INDICATION: PICC line placement TECHNIQUE: frontal view of the chest was obtained. COMPARISON: Chest radiograph dated 06/07/2021 at 5:47 AM FINDINGS: Interval placement of a right upper extremity peripherally inserted central venous catheter (PICC) ti p at the superior cavoatrial junction. Increasing airspace opacities in the bilateral mid and lower lung zones with blunting of the costophrenic angles consistent with enlarging small to moderate bilat eral pleural effusions with associated atelectasis, pneumonia, pulmonary edema or some combination th ereof. Skinfold projects over the right apex. No pneumothorax. Cardiomegaly. Three lead pacemaker/AIC D seen with leads projecting over the expected locations of the right atrial appendage, apex of the r ight ventricle and overlying the left ventricle likely having traversed the coronary sinus. IMPRESSION: 1. Right PICC line tip at the superior cavoatrial junction. 2. Increasing small to moderate-sized bilateral pleural effusions with associated atelectasis, pulmon nataly edema, pneumonia or some combination thereof. 3. Cardiomegaly. Reviewed, dictated and finalized at location A. GER FIELD SERVICES IMPRESSION: 1. Right PICC line tip at the superior cavoatrial junction. 2. Increasing small to moderate-sized bilateral pleural effusions with associat ed atelectasis, pulmonary edema, pneumonia or some combination thereof. 3. Cardiomegaly.
[2021-05-13 23:06] VITALS: PULSE 130; RESP 18; TEMP 36.6; O2SAT 96
--- NOTE | 2021-05-13 23:13 | ECG_ITS ---
Measurements Intervals [place] Rate: 130 P: -43 NH: 208 QRS: 254 QRSD: 170 T: 63 QT: 366 QTc: 539 Interpretive Statements ATRIAL SENSE- ELECTRONIC VENTRICULAR PACEMAKER UNDERLYING SINUS OR ECTOPIC ATRIAL TACHYCARDIA NO FURTHER INTERPRETATION IS POSSIBLE ABNORMAL ECG Electronically Signed On 05-14-2021 6:46:41 POURING CRANE OPERATOR by Jovanni Goodman D.O.
[2021-05-13 23:14] VITALS: BP 113/82; PULSE 120; PULSE 129; RESP 24; RESP 26; O2SAT 97; O2SAT 98; O2SAT 99
[2021-05-13 23:31] VITALS: BP 122/73; PULSE 123; RESP 18; O2SAT 99
[2021-05-13 23:46] LABS: Basophils Percent Auto 0.3 % (0.2-1.2); Eosinophils Absolute Auto 0.8 K/mm3 (0-0.3); Eosinophils Percent Auto 5.9 % (0-4.4); Hematocrit 35.1 % (42.0-52.0); Hemoglobin 11.2 g/dL (14.0-18.0); Immature Granulocyte Absolute 0.05 K/mm3 (0.00-0.031); Immature Granulocyte Percent A 0.4 % (0-0.5); Lymphocytes Absolute Auto 0.22 K/mm3 (0.9-3.2); Lymphocytes Percent Auto 1.7 % (18.3-44.2); Mean Corpuscular HGB Conc 31.9 g/dl (32-36); Mean Corpuscular Hemoglobin 27.6 pg (26-34); Mean Corpuscular Volume 86.5 fl (80-100); Mean Platelet Volume 11.4 fl (7.4-10.4); Monocytes Absolute Auto 0.2 K/mm3 (0.1-0.6); Monocytes Percent Auto 1.3 % (2.6-8.5); Neutrophils Absolute Auto 11.7 K/mm3 (1.3-6.7); Neutrophils Percent Auto 90.4 % (45.5-73.1); Platelet Count Result 280 k/mm3 (150-375); Red Blood Count 4.06 M/mm3 (4.6-6.20); Red Cell Distribution Width 17.6 % (11.5-14.5)
[2021-05-13 23:57] LABS: INR 1.3; Prothrombin Time 15.9 Seconds (11.1-14.7)
[2021-05-13 23:58] LABS: Partial Thromboplastin Time 28.4 SECONDS (22.3-36.8)
[2021-05-14] VITALS (30 sets, daily range): BP systolic 74–110; BP diastolic 54–91; PULSE 69–108; RESP 14–28; TEMP 35.7–36.9; O2SAT 93–100; BMI 28.4
--- NOTE | 2021-05-14 | ECHO_ITS ---
Patient Info Name: Dimitry Pa Age: 70 years : 1950 Gender: Male Ht: 70 in Wt: 199 lbs BSA: 2.13 m2 BP: 102 / 76 mmHg Technical Quality: Good Exam Date: 05/14/2021 11:32 AM Exam Location: [facility] Patient Status: Inpatient Admit Date: 05/14/2021 Staff Ordering Physician: Aurelio Farooq MD Marketing Services Vice President: Kassie Gomez RDCS Attending Provider: Aurelio Farooq MD Exam Type: CA echo limited w contrast Study Info Indications - CHECK EF Limited two-dimensional transthoracic echocardiogram is performed with contrast. Contrast/Agitated Saline Contrast/Ag. Saline: Definity Amount: 2.00 ml Existing IV Access: Yes IV Access Condition: patent with no signs of infiltration Summary 1. Limited echocardiogram to assess LV function. 2. Left ventricular chamber dimension is severely enlarged. 3. Definity contrast administered improved wall motion interpretation. 4. Left ventricular systolic function is severely reduced, estimated at 15-20%. Left Ventricle Limited echocardiogram to assess LV function. The left ventricular diastolic function is indeterminate as it was not assessed. Tissue doppler is not performed. Definity contrast administered improved wall motion interpretation. Left ventricular chamber dimension is severely enlarged. Left ventricular systolic function is severely reduced, estimated at 15-20%. Ventricles Name Value Normal LV Dimensions 2D/MM IVS Diastolic Thickness (2D) 1.0 cm 0.6-1.0 IVS Diastole Thickness (MM) 0.8 cm 0.6-1.0 LVID Diastole (2D) 6.3 cm 4.2-5.8 LVID Diastole (MM) 8.2 cm 4.2-5.8 LVIW Diastolic Thickness (2D) 0.8 cm 0.6-1.0 LVIW Diastolic Thickness (MM) 0.8 cm 0.6-1.0 LVID Systole (2D) 5.4 cm 2.5-4.0 LVID Systole (MM) 6.6 cm 2.5-4.0 LV Mass (2D Cubed) 239.93 g 88.00-224.00 LV Mass Index (2D Cubed) 113 g/m2 49-115 Relative Wall Thickness (2D) 0.26 LV Mass (MM Cubed) 329.57 g 88.00-224.00 LV Mass Index (MM Cubed) 155 g/m2 49-115 Relative Wall Thickness (MM) 0.19 LV Fractional Shortening/Ejection Fraction 2D/MM LV Fractional Shortening (2D) 14 % 25-43 LV Fractional Shortening (MM) 19 % 25-43 LV EF (MM Teicholz) 37 % 52-72 LV EF (2D Teicholz) 30 % 52-72 LV Diastolic Volume (4C MOD) 188 ml LV EF (4C MOD) 23 % LV Diastolic Volume (2C MOD) 253 ml LV EF (2C MOD) 24 % LV Diastolic Volume (BP MOD) 220 ml 62-150 LV Diastolic Volume Index (BP MOD) 103 ml/m2 34-74 LV Systolic Volume (BP MOD) 170 ml 21-61 LV Systolic Volume Index (BP MOD) 80 ml/m2 11-31 LV EF (BP MOD)
[2021-05-14 00:25] LABS: Alkaline Phosphatase 837 U/L (38-126); Anion Gap 22 mmol/L (8-16); Aspartate Amino Transferase 82 U/L (17-59); Bilirubin,Total 3.2 mg/dL (0.2-1.3); Blood Urea Nitrogen 29 mg/dL (9-20); Calcium 8.8 mg/dL (8.4-10.2); Carbon Dioxide 20 mmol/L (22-30); Chloride 89 mmol/L (98-107); Estimated CRCL calculation 47 ml/min; Estimated Glomerular Filt Rate 50; Glucose 395 mg/dL (65-110); Magnesium 1.5 mg/dL (1.6-2.3); NT Pro B Type Natriuretic Pept 28200 pg/mL (5-100); Potassium 4.1 mmol/L (3.4-5.0); Sodium 131 mmol/L (137-145); Troponin I 0.043 ng/mL (0.000-0.034)
[2021-05-14 00:30] LABS: SARS-CoV-2 RNA PCR Negative
[2021-05-14 00:44] LABS: Add Urine Microscopic? YES; Appearance Urine Clear (Clear); Bacteria Urine Trace /hpf; Bilirubin Urine Negative (Negative); Blood Urine 2+ (Negative); Color Urine Amber (Yellow); Glucose Urine UA 1+ mg/dL (Negative); Hyaline Casts Urine 50+ /lpf; Ketones Urine Negative (Negative); Leukocyte Esterase Ur Negative LEU/UL (Negative); Mucus Urine Rare /lpf; Nitrate Urine Negative (Negative); Protein Urine 1+ mg/dL (Negative); RBC Urine >75 /hpf (0-2); Specific Grav Ur 1.017 (1.001-1.035); Squamous Epithelial Cell Urine Rare /hpf (Few)
[2021-05-14 00:53] LABS: Alanine Aminotransferase 58 U/L (4-50)
--- NOTE | 2021-05-14 00:58 | ED.GENADULT ---
HPI - General Adult General Chief complaint: Chest Pain Stated complaint: SOB WITH PRESSURE TO CHEST Time Seen by Provider: 05/13/21 23:23 History of Present Illness HPI narrative: Patient is a 70-year-old gentleman who presents to the emergency department with chief complaint of shortness of breath. Patient reports that he has history of congestive heart failure reports that he has had increasing peripheral edema and increasing shortness of breath and is noticed that he is a little bit of fullness in his chest. Patient states that he has had no changes in his diet no changes in his medical history the patient reports that has had no diaphoresis with this patient reports symptoms are worse with ambulation and improved with rest. Related Data Home Medications Medication Instructions Recorded Confirmed magnesium oxide 600 mg PO BID 05/20/20 04/09/21 insulin aspart U-100 [Novolog 0 unit SUBCUT TID 02/24/21 04/09/21 Flexpen U-100 Insulin] lisinopril 5 mg PO DAILY 02/24/21 04/09/21 Allergies Allergy/AdvReac Type Severity Reaction Status Date / Time Penicillins Allergy Mild Unknown Verified 04/08/21 07:55 Review of Systems Review of Systems: A 10 system review of systems was completed on the patient and is negative except for what is stated in the HPI. Nursing and ancillary documentation was reviewed. [facility] Past Medical History Medical History Apical mural thrombus CHF (congestive heart failure) Diabetes mellitus Diabetes mellitus with neuropathy Diabetic ulcer of right foot associated with diabetes mellitus due to underlying condition Dyslipidemia Essential (primary) hypertension NICM (nonischemic cardiomyopathy) NSVT (nonsustained ventricular tachycardia) PAT (paroxysmal atrial tachycardia) Peripheral arterial disease Shoulder fracture, left Staph infection thigh Vitamin D deficiency Surgical History Surgical History History of complete ray amputation of third toe of right foot 05/2020 - due to osteomyelitis History of permanent cardiac pacemaker placement Medtronic BiV-ICD placed at [facility] 08/06/19 Family History Family History Other No problems noted. Sibling Acute myocardial infarction Mother Lung cancer Social History Social History Social History: Patient lives home alone He is working at [employer] is being held until he is able to return to work. He is a full code. He is a lifelong nonsmoker. No drug or alcohol use. The patient had 1 daughter and was but both the daughter and were killed in a car wreck. The patient does not have any power trust and estates attorney for healthcare. He lives home alone. Code status full code Smoking status: Never smoker Alcohol intake: never Substance use: never Additional living arrangements comments: [id number] Additional occupation/education comments: Employed at [employer] but currently not working- job being held Gender identity (if verbalized by the patient): Male Sexual Orientation (if Verbalized by the Patient): Straight or Heterosexual Spiritual care concerns: No Agree to blood products: Yes Course Vital Signs Vital signs: Vital Signs Temperature 36.6 C 05/13/21 23:06 Pulse Rate 130 H 05/13/21 23:06 Respiratory Rate 18 05/13/21 23:06 Pulse Oximetry 96 05/13/21 23:06 Temperature 36.6 C 05/13/21 23:06 Pulse Rate 95 05/14/21 01:41 Respiratory Rate 23 H 05/14/21 01:41 Blood Pressure 94/64 L 05/14/21 01:41 Pulse Oximetry 97 05/14/21 01:41 Medical Decision Making Vital Signs Vital Signs: Vital Signs Temperature 36.6 C 05/13/21 23:06 Pulse Rate 130 H 05/13/21 23:06 Respiratory Rate 18 05/13/21 23:06 Pulse Oximetry
[2021-05-14 01:08] LABS: Lactic Acid Reflex 5.1 mmol/L (0.7-2.1)
[2021-05-14] MEDS: BENZONATATE 100 MG CAPSULE 200 MG PO (01:43)
[2021-05-14] MEDS: MAGNESIUM SULF 2 GM/WATER 50ML 2 GM/50 ML BAG IVPB (01:43)
[2021-05-14] MEDS: FUROSEMIDE INJ 40 MG/4 ML VIAL IV PUSH (01:44)
[2021-05-14 01:59] LABS: Alveolar/Arterial O2 Gradient 36.8 mmHg; Base Excess ABG -1.1 mEq/l (+/-2.0); Fractional Inspired Oxygen 21 %; HCO3 ABG 21.1 mEq/l (22.0-26.0); Oxygen Content ABG 14.3 %vol (16.0-22.0); Oxygen Saturation ABG 96.9 % (95.0-100.0); Oxyhemoglobin 95.1 % THb (90.0-100.0); PCO2 ABG 27.2 mmHg (35.0-45.0); PO2 ABG 80.4 mmHg (80.0-100.0); PO2 FiO2 Ratio Arterial Blood 3.83 %; Total Hemoglobin 10.6 g/dL (12.0-18.0)
[2021-05-14 02:01] LABS: Site Drawn RIGHT RADIAL; pH ABG 7.507 (7.350-7.450)
[2021-05-14 02:44] LABS: Reflex Lactic Acid Yes or No Add Lactic
[2021-05-14] MEDS: SODIUM CHLORIDE 0.9% IV 500 ML 999 ML IV CONT (03:12)
[2021-05-14 03:48] LABS: Lactic Acid 4.2 mmol/L (0.7-2.1)
[2021-05-14 03:52] LABS: Troponin I 0.075 ng/mL (0.000-0.034)
[2021-05-14] MEDS: SODIUM CHLORIDE 0.9% IV 500 ML IV CONT ×2 (04:39→04:41)
--- NOTE | 2021-05-14 05:25 | PM.IMHP ---
H&P: HPI History of Present Illness Date/Time: 05/14/21 05:25 Chief Complaint: cough Narrative: Patient is a 70-year-old gentleman who presents to the emergency department with chief complaint of cough. he has hx of congestive heart failure and has lower extremity edema which is cronic. he also rpeorts some sob which is chronic. he presents to the Ed for evaluation. he denies any fever or chills. his cough is dry without expectoration. no abdominal pain, nausea, vomitng. in the ED< he had cxr done which revealed congestive changes, he did hve mild leukocytosis in his blood work along with lactic acidosis of 5.1. initial thought was chf exacerbation and lasix 40 mg iv was givne. he normally takes lasix 40 mg po bid. After Lasix was given his blood pressure plummeted down and had been getting IV fluid. He has been tolerating IV fluid resuscitation well without worsening his shortness of breath. His laboratory workup also revealed lactic acidosis and hence possible pneumonia and related sepsis is entertained. He has been started on broad-spectrum antibiotics and had been getting gentle IV fluid hydration. Blood pressure still low but has improved since IV hydration. When asked he reports that his legs are always swollen and has not particularly increasing since recently. His laboratory evaluation with BNP are elevated is actually improved and better than what it has been in the past. He does also have elevated troponin which is mild. He denies any chest pain Review of Systems Review of Systems: - CONSTITUTIONAL: Denies weight loss, fever and chills. - HEENT: Denies changes in vision and hearing - RESPIRATORY: Reports SOB and cough. - CV: Denies palpitations and CP. - GI: Denies abdominal pain, nausea, vomiting and diarrhea. - : Denies dysuria and urinary frequency. - MSK: Denies myalgia and joint pain. - SKIN: Denies rash and pruritus. - NEUROLOGICAL: Denies headache and syncope. - PSYCHIATRIC: Denies recent changes in mood. Denies anxiety and depression. All systems reviewed & are unremarkable except as noted in HPI and below Constitutional: Constitutional: Reports fatigue and Reports weakness Neurologic: Reports weakness Endocrine: Endocrine: Reports fatigue PMFSH Past Medical History Medical History Apical mural thrombus CHF (congestive heart failure) Diabetes mellitus Diabetes mellitus with neuropathy Diabetic ulcer of right foot associated with diabetes mellitus due to underlying condition Dyslipidemia Essential (primary) hypertension NICM (nonischemic cardiomyopathy) NSVT (nonsustained ventricular tachycardia) PAT (paroxysmal atrial tachycardia) Peripheral arterial disease Shoulder fracture, left Staph infection thigh Vitamin D deficiency Surgical History Surgical History History of complete ray amputation of third toe of right foot 05/2020 - due to osteomyelitis History of permanent cardiac pacemaker placement Med[employer] BiV-ICD placed at [facility] 08/06/19 Family History Family History Other No problems noted. Sibling Acute myocardial infarction Mother Lung cancer Social History Social History Social History: Patient lives home alone He is working at [employer] is being held until he is able to return to work. He is a full code. He is a lifelong nonsmoker. No drug or alcohol use. The patient had 1 daughter and was but both the daughter and were killed in a car wreck. The patient does not have any power bolt cutter for healthcare. He lives home alone. Code status full code Smoking status: Never smoker Alcohol intake: never Substance use: never Additional living arrangements comments: [id number] [place]
[2021-05-14] MEDS: SODIUM CHLORIDE 0.9% IV 1,000 ML 999 ML IV CONT (06:25)
[2021-05-14] MEDS: ALBUMIN HUMAN 25% 25 GM/100 ML 100 ML IVPB (06:26)
[2021-05-14 07:13] LABS: Alanine Aminotransferase 43 U/L (4-50); Alkaline Phosphatase 686 U/L (38-126); Anion Gap 17 mmol/L (8-16); Aspartate Amino Transferase 68 U/L (17-59); Bilirubin,Total 2.7 mg/dL (0.2-1.3); Blood Urea Nitrogen 28 mg/dL (9-20); Calcium 7.7 mg/dL (8.4-10.2); Carbon Dioxide 19 mmol/L (22-30); Chloride 93 mmol/L (98-107); Estimated CRCL calculation 50 ml/min; Estimated Glomerular Filt Rate 55; Glucose 404 mg/dL (65-110); Potassium 3.1 mmol/L (3.4-5.0); Sodium 129 mmol/L (137-145)
[2021-05-14 07:40] LABS: Glucose Point of Care 463 mg/dl (65-105)
[2021-05-14] MEDS: INSULIN ASPART (*BKC) 100 UNITS/ML SUB-Q ×2 (07:58→12:44)
[2021-05-14] MEDS: ASPIRIN 81 MG CHEWABLE TABLET PO (08:40)
[2021-05-14 09:24] LABS: Basophils Absolute Auto 0.1 K/mm3 (0.0-0.1); Basophils Percent Auto 0.4 % (0.2-1.2); Eosinophils Absolute Auto 0.2 K/mm3 (0-0.3); Eosinophils Percent Auto 1.3 % (0-4.4); Hemoglobin 9.6 g/dL (14.0-18.0); Immature Granulocyte Absolute 0.15 K/mm3 (0.00-0.031); Immature Granulocyte Percent A 0.9 % (0-0.5); Lymphocytes Absolute Auto 0.22 K/mm3 (0.9-3.2); Lymphocytes Percent Auto 1.4 % (18.3-44.2); Mean Corpuscular Hemoglobin 27.7 pg (26-34); Mean Corpuscular Volume 86.5 fl (80-100); Mean Platelet Volume 11.4 fl (7.4-10.4); Monocytes Absolute Auto 0.5 K/mm3 (0.1-0.6); Neutrophils Absolute Auto 15.1 K/mm3 (1.3-6.7); Platelet Count Result 216 k/mm3 (150-375); Red Blood Count 3.47 M/mm3 (4.6-6.20); Red Cell Distribution Width 17.6 % (11.5-14.5); White Blood Count 16.2 K/mm3 (4.5-10.0)
[2021-05-14 09:51] LABS: Glucose Point of Care 377 mg/dl (65-105)
[2021-05-14 09:56] LABS: Troponin I 0.139 ng/mL (0.000-0.034)
[2021-05-14] MEDS: POTASSIUM CHLORIDE 20 MEQ TABLET 40 MEQ PO (11:07)
--- NOTE | 2021-05-14 11:32 | PC.NURSE ---
Bedside echo in progress at this time.
--- NOTE | 2021-05-14 12:33 | PC.NURSE ---
blood glucose was checked at 1233 and it was 309 and didnt want lunch
[2021-05-14 12:38] LABS: Glucose Point of Care 309 mg/dl (65-105)
[2021-05-14] MEDS: PERFLUTREN LIPID MICROSPHERES 1.5 ML VIAL DILUTED TO 10 ML TOTAL VOLUME IV PUSH (13:00)
--- NOTE | 2021-05-14 14:30 | ADMGEN ---
Addendum entered by Esperanza Bethea RN 05/14/21 21:49: ADMITTED FROM ED TO [facility] 5 IMU OVERFLOW. WEAK AND LETHARGIC ON ARRIVAL. FOLLOWS COMMAND, BUT DROWSY. DENIES PAIN OR SOB ON ARRIVAL. WILL CONTINUE TO MONITOR. Original Note: This patient, Dimitry Pa, was admitted to [facility]. Patient/family oriented to hospital policies and general routines including ID bracelet, bed and alarms, visiting hours, pain management, procedures, bathroom and other care routines, personal items, smoking policy, room service/diet, and visiting hours. Information on how to activate the Rapid Response Team has been discussed. Patient/Family are encouraged to report perceived risks to care and to ask questions if they do not understand what they are told or what they should do.
--- NOTE | 2021-05-14 14:35 | PC.NURSE ---
CAUSTIC MIXER PATRICIO HANKS NOTIFIED OF CARDIOLOGY CONSULT ORDERED. NO ORDERS RECEIVED.
--- NOTE | 2021-05-14 16:26 | PM.IMPN ---
Progress Note: A&P Assessment and Plan (1) Sepsis: Code(s): A41.9 - Sepsis, unspecified organism Status: Acute Assessment and Plan: Patient presents with severe sepsis and septicemia with tachycardia, leukocytosis, hypotension and elevated lactic acid. blood cultures growing Gram-positive cocci in clusters from both bottles. Sources probably skin. Consider pneumonia given chest x-ray findings. Continue cefepime and vancomycin. Follow-up on blood culture results. Repeat blood cultures in 1-2 days. (2) Pneumonia: Code(s): J18.9 - Pneumonia, unspecified organism Status: Acute Assessment and Plan: Chest x-ray shows bilateral central lower lobe pulmonary infiltrates. COVID is negative. Blood cultures are positive. Continue cefepime and vancomycin. He remains on room air. (3) Hypotension: Code(s): I95.9 - Hypotension, unspecified Status: Acute Assessment and Plan: Patient's blood pressure was soft on admission related to the sepsis and dropped to 74/60 felt related Lasix. blood pressure soft but stable . Continue to monitor. He is off IV fluids at this time. (4) Elevated troponin: Code(s): R77.8 - Other specified abnormalities of plasma proteins Status: Acute Assessment and Plan: Troponin elevated on admission and climbed to 0.14. EKG showing paced rhythm. Echocardiogram as mentioned below. Suspect elevated troponins related to the sepsis and hypotension. Appreciate Cardiology input. Resume aspirin and Lipitor. Continue to hold Coreg. (5) Lactic acidosis: Code(s): E87.2 - Acidosis Status: Acute Assessment and Plan: Lactic acid was 6.0 but has been trending downward since admission. Will repeat. Related to above. (6) CHF (congestive heart failure): Qualifiers: Heart failure chronicity: acute Heart failure type: unspecified Qualified Code(s): I50.9 - Heart failure, unspecified Code(s): I50.9 - Heart failure, unspecified Status: Chronic Assessment and Plan: BNP 28K. CXR with pulmonary vascular congestion, subpleural edema and small effusions. Echocardiogram done today shows severely enlarged LV chamber with EF of 15-20%. Unable to perform diuresis given his hypotension. Hypotension could be related to the CHF but more concerning for related to sepsis with positive blood cultures. Currently on room air. Will continue to monitor. Cardiology consult has been placed. CT of the abdomen does show anasarca to suggest the patient's heart failure has been poorly controlled overall. (7) Diabetes mellitus: Qualifiers: Diabetes mellitus complication status: without complication Diabetes mellitus senior living insulin use: without lobsterman use Diabetes mellitus type: type 2 Qualified Code(s): E11.9 - Type 2 diabetes mellitus without complications Code(s): E11.9 - Type 2 diabetes mellitus without complications Status: Chronic Assessment and Plan: A1c 10. The patient's blood glucose was reviewed on 05/14 Glucose is poorly controlled. Continue AccuCheks covering with sliding scale. Hypoglycemia protocol available as needed. Start lantus (8) Anemia: Code(s): D64.9 - Anemia, unspecified Status: Acute Assessment and Plan: hemoglobin 11.2 on admission but has dropped to 9.6. Suspect related to IV fluids. No evidence of acute blood loss. Will check iron studies. (9) ROSAURA (acute kidney injury): Code(s): N17.9 - Acute kidney failure, unspecified Status: Acute Assessment and Plan: creatinine 1.4 on admission. Has improved slightly today. He has normal baseline creatinine function. Suspect acute kidney injury related to ATN from the hypotension and sepsis. Continue to monitor closely. (10) Complete heart block: Code(s): I44.2 - Atrioventricular block, complete Status: Acute Assessme
[2021-05-14 19:22] LABS: Glucose Point of Care 193 mg/dl (65-105)
[2021-05-14] MEDS: ENOXAPARIN 40 MG/0.4 ML SYRINGE SUB-Q (19:22)
[2021-05-14 21:39] LABS: Glucose Point of Care 271 mg/dl (65-105)
[2021-05-14] MEDS: INSULIN GLARGINE (*BKC) 100 UNITS/ML 14 UNITS SUB-Q (21:43)
--- NOTE | 2021-05-14 22:44 | ADMGEN ---
This patient, Dimitry Pa, was admitted to [facility]. Patient/family oriented to hospital policies and general routines including ID bracelet, bed and alarms, visiting hours, pain management, procedures, bathroom and other care routines, personal items, smoking policy, room service/diet, and visiting hours. Information on how to activate the Rapid Response Team has been discussed. Patient/Family are encouraged to report perceived risks to care and to ask questions if they do not understand what they are told or what they should do.
[2021-05-15] VITALS (12 sets, daily range): BP systolic 91–105; BP diastolic 58–74; PULSE 76–93; RESP 16–23; TEMP 35.7–36.8; O2SAT 93–100
[2021-05-15 06:52] LABS: Hematocrit 30.9 % (42.0-52.0); Hemoglobin 10.2 g/dL (14.0-18.0); Mean Corpuscular Hemoglobin 27.2 pg (26-34); Mean Corpuscular Volume 82.4 fl (80-100); Mean Platelet Volume 11.2 fl (7.4-10.4); Platelet Count Result 250 k/mm3 (150-375); Red Blood Count 3.75 M/mm3 (4.6-6.20); Red Cell Distribution Width 17.6 % (11.5-14.5); White Blood Count 11.1 K/mm3 (4.5-10.0)
[2021-05-15 07:03] LABS: Lactic Acid Reflex 1.5 mmol/L (0.7-2.1)
[2021-05-15 07:10] LABS: Glucose Point of Care 261 mg/dl (65-105)
[2021-05-15 07:24] LABS: Alanine Aminotransferase 244 U/L (4-50); Albumin Level 2.7 g/dL (3.5-5.1); Alkaline Phosphatase 504 U/L (38-126); Anion Gap 7 mmol/L (8-16); Aspartate Amino Transferase 514 U/L (17-59); Blood Urea Nitrogen 41 mg/dL (9-20); Calcium 7.9 mg/dL (8.4-10.2); Carbon Dioxide 25 mmol/L (22-30); Chloride 93 mmol/L (98-107); Creatine Kinase 22 U/L (55-170); Estimated CRCL calculation 44 ml/min; Estimated Glomerular Filt Rate 47; Glucose 295 mg/dL (65-110); Magnesium 1.9 mg/dL (1.6-2.3); Phosphorus 3.3 mg/dL (2.5-4.5); Potassium 3.5 mmol/L (3.4-5.0); Sodium 125 mmol/L (137-145); Troponin I 0.276 ng/mL (0.000-0.034)
[2021-05-15 08:17] LABS: Anisocytosis 1+ (NORMAL); Band Neutrophils Percent 11 % (0-6); Eosinophils Absolute Manual 0.11 K/mm3 (0.02-0.5); Eosinophils Percent Manual 1 % (0-4); Lymphocytes Absolute Manual 0.22 K/mm3 (1.1-4.5); Monocytes Absolute Manual 0.22 K/mm3 (0.1-0.90); Monocytes Percent Manual 2 % (3-9); Neutrophils Absolute Manual 10.54 K/mm3 (1.3-6.7); Neutrophils Percent Manual 84 % (46-73); Platelet Estimate Adequate (Adequate); Poikilocytosis 1+ (NORMAL); Total Cells Counted 100
[2021-05-15] MEDS: ASPIRIN 81 MG ENTERIC TABLET PO (08:24)
[2021-05-15] MEDS: MAGNESIUM OXIDE 400 MG TABLET PO ×2 (08:24→16:24)
[2021-05-15] MEDS: INSULIN ASPART (*BKC) 100 UNITS/ML SUB-Q ×3 (08:24→16:24)
[2021-05-15 09:43] LABS: Iron 13 ug/dL (49-181)
--- NOTE | 2021-05-15 09:50 | PM.CNCAR ---
Assessment and Plan Additional Plan This is an unfortunate 70-year-old man with a fairly severe nonischemic cardiomyopathy who enters the hospital with shortness of breath some volume overload and very concerning the also has positive blood cultures. He is on antibiotics for this. His heart failure is not well compensated I would agree with Dr. Salgado is comments regarding this. I am going to resume a lower dose of carvedilol and try shifting him from lisinopril to Entresto. Spironolactone will be continued. We will follow with you during this hospitalization and if at all possible arrange for follow-up in our practice upon discharge. If the patient has insurance plans in which we do not participate we will have to ensure that it physicians that can care for this gentleman's heart disease are identified upon discharge. The patient has had no cardiac follow-up nor any follow-up of his ICD for these reasons. Obviously this is not acceptable. He must upon discharge this time have appointments arranged with physicians who are able to see him in longitudinal follow-up. Abilio Clifton MD [facility] History of Present Illness History of Present Illness Consult date/time: 05/15/21 09:50 Consult reason: congestive heart failure Reason For Visit: CHF acute exacerbation Narrative: This is a 70-year-old man who is unknown to me prior to this encounter who is being seen at the request of the hospitalist because of assistance with the evaluation and management of congestive heart failure. His entire length the chart has been reviewed and the patient has been seen [facility]. Says he came to the hospital yesterday early in the day because of shortness of breath and lower extremity edema. His evaluation has demonstrated evidence of some decompensated congestive heart failure. He did have blood cultures done which are interestingly positive for Gram-positive cocci in clusters. In this setting we are seeing him in consultation. At the moment he appears to be comfortable in [facility]. He is not receiving any supplemental oxygen and denies any significant shortness of breath at bedrest. His chest x-ray does show cardiomegaly with a chronically implanted defibrillator and some pulmonary congestive changes. Blood pressure is according to the [facility] in the mid 90s to low 100s. He is in a sinus tachycardia. According to the records the patient has a history of a well documented worked up non ischemic cardiomyopathy. He has had evaluation here as well as apparently at [facility] in [place]. 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 He was previously cared for by a physician's of the [facility] who apparently informed the patient the past year that they no longer participate in his insurance plan and are no longer able to care for him. Was in the hospital here in the fall of 2020 were my partners saw the patient for decompensation in heart failure. No follow-up appointment was made in our office at the time of discharge making me suspicious that we may not be able to follow this patient as well. As I dictate this I do not have that specific information. He does not offer any other complaints at this time. His baseline medical regimen for his heart failure includes carvedilol at 6.25 mg q.12 hours, Lasix at 40 mg twice daily, lisinopril 5 mg per day and spironolactone 25 mg daily. None of this has been ordered since he was admitted yesterday as far as I can tell. Laboratory data shows his hemoglobin to be just over 10 g. BUN is 41 creatinine is 1.5. Review of Systems Constitutional: Constitutional: Reports fatigue and Reports weakness Eyes: Eyes: Reports no additional eye complaints ENT: Reports system reviewed and no additional complaints, except as documented Cardiovascular: Cardiovascular: Reports as per HPI Respiratory: Respir
[2021-05-15 10:04] LABS: Percent Iron Saturation 6 % (20-50)
[2021-05-15] MEDS: SPIRONOLACTONE 25 MG TABLET PO (10:30)
[2021-05-15] MEDS: SACUBITRIL/VALSARTAN 12-13 MG TABLET 1 TAB PO ×2 (10:30→21:58)
[2021-05-15] MEDS: carvediloL 3.125 MG TABLET PO (10:30)
[2021-05-15 10:49] LABS: Folic Acid 12.9 ng/mL (2.76->20); Vitamin B12 > 1000.0 pg/mL (239-931)
[2021-05-15 11:17] LABS: Device ROOM AIR
[2021-05-15 12:21] LABS: Glucose Point of Care 275 mg/dl (65-105)
--- NOTE | 2021-05-15 13:12 | PM.IMPN ---
Progress Note: A&P Assessment and Plan (1) Sepsis: Code(s): A41.9 - Sepsis, unspecified organism Status: Acute Assessment and Plan: Patient presents with severe sepsis and septicemia with tachycardia, leukocytosis, hypotension and elevated lactic acid. Blood cultures growing Staph aureus from both bottles. Sources probably skin +/- pneumonia given chest x-ray findings. Continue cefepime and vancomycin. Repeat blood cultures. (2) Pneumonia: Code(s): J18.9 - Pneumonia, unspecified organism Status: Acute Assessment and Plan: Chest x-ray shows bilateral central lower lobe pulmonary infiltrates. COVID is negative. Blood cultures are positive. Continue cefepime and vancomycin. He remains on room air. Repeat CXR in the morning. (3) Hypotension: Code(s): I95.9 - Hypotension, unspecified Status: Acute Assessment and Plan: Patient's blood pressure was soft on admission related to the sepsis (and/or cardiogenic) and dropped to 74/60 felt related Lasix. Blood pressure soft but stable. Medications being adjusted and he appears to be tolerating this well. (4) Elevated liver function tests: Code(s): R94.5 - Abnormal results of liver function studies Status: Acute Assessment and Plan: Elevated liver enzymes noted. Probably hepatic congestion from his uncontrolled heart failure. Levels are much worse today. Stop Lipitor. He did have a reactive HCV antibody screen but HCV RNA levels were negative. Check right UQ US. Continue to follow. (5) Elevated troponin: Code(s): R77.8 - Other specified abnormalities of plasma proteins Status: Acute Assessment and Plan: Troponin elevated on admission and peaked at 0.28. EKG showing paced rhythm. Echocardiogram as mentioned below. Suspect elevated troponins related to the sepsis, CHF and hypotension. Appreciate Cardiology input. Continue aspirin. Other medication adjustments per Cardiology. (6) Lactic acidosis: Code(s): E87.2 - Acidosis Status: Acute Assessment and Plan: Lactic acid was 6.0 but has been trending downward since admission. SFelt related to sepsis with low EF (and perfusion) also playing a part. Repeat lactic normal. Repeat if clinical condition changes. (7) CHF (congestive heart failure): Qualifiers: Heart failure chronicity: acute Heart failure type: unspecified Qualified Code(s): I50.9 - Heart failure, unspecified Code(s): I50.9 - Heart failure, unspecified Status: Chronic Assessment and Plan: BNP 28K. CXR with pulmonary vascular congestion, subpleural edema and small effusions. CT of the abdomen does show anasarca to suggest the patient's heart failure has been poorly controlled overall. Echocardiogram done shows severely enlarged LV chamber with EF of 15-20%. Unable to perform diuresis given his hypotension. Hypotension could be related to the CHF but more concerning for related to sepsis with positive blood cultures. He remains on room air. Will continue to monitor. Appreciate Cardiology input. (8) Diabetes mellitus: Qualifiers: Diabetes mellitus complication status: without complication Diabetes mellitus intermediate project manager insulin use: without senior care use Diabetes mellitus type: type 2 Qualified Code(s): E11.9 - Type 2 diabetes mellitus without complications Code(s): E11.9 - Type 2 diabetes mellitus without complications Status: Chronic Assessment and Plan: A1c 10. The patient's blood glucose was reviewed on 05/15 Glucose is poorly controlled. Lantus was added Continue AccuCheks covering with sliding scale. Hypoglycemia protocol available as needed. Advance Lantus (9) Anemia: Code(s): D64.9 - Anemia, unspecified Status: Acute Assessment and Plan: Hemoglobin 11.2 on admission but has dropped to 9-10 range. B12/folate normal. Suspect related to IV fluids. No javier
[2021-05-15 13:40] LABS: Troponin I 0.177 ng/mL (0.000-0.034)
[2021-05-15 16:13] LABS: Glucose Point of Care 301 mg/dl (65-105)
[2021-05-15] MEDS: EUCERIN CREAM 120 GM JAR 1 APPLIC TOPICAL (16:24)
[2021-05-15] MEDS: FERROUS SULFATE 324 MG TABLET PO (16:24)
--- NOTE | 2021-05-15 17:23 | PC.NURSE ---
This patient, Dimitry Pa, was transferred to [facility] on 05/15/21 at 1709. Personal belongings sent with patient. Report given to Twila FIELDS. Appropriate documentation sent with patient.
[2021-05-15] MEDS: ENOXAPARIN 40 MG/0.4 ML SYRINGE SUB-Q (17:58)
[2021-05-15] MEDS: INSULIN GLARGINE (*BKC) 100 UNITS/ML 18 UNITS SUB-Q (21:35)
[2021-05-15 21:41] LABS: Glucose Point of Care 247 mg/dl (65-105)
[2021-05-16] VITALS (9 sets, daily range): BP systolic 92–104; BP diastolic 61–70; PULSE 75–83; RESP 12–21; TEMP 36.1–36.8; O2SAT 94–100
[2021-05-16 05:44] LABS: Basophils Percent Auto 0.3 % (0.2-1.2); Eosinophils Absolute Auto 0.3 K/mm3 (0-0.3); Eosinophils Percent Auto 3.5 % (0-4.4); Hematocrit 32.9 % (42.0-52.0); Hemoglobin 10.8 g/dL (14.0-18.0); Immature Granulocyte Absolute 0.07 K/mm3 (0.00-0.031); Immature Granulocyte Percent A 0.7 % (0-0.5); Lymphocytes Absolute Auto 0.67 K/mm3 (0.9-3.2); Lymphocytes Percent Auto 6.8 % (18.3-44.2); Mean Corpuscular HGB Conc 32.8 g/dl (32-36); Mean Corpuscular Hemoglobin 26.9 pg (26-34); Mean Corpuscular Volume 81.8 fl (80-100); Mean Platelet Volume 11.5 fl (7.4-10.4); Monocytes Absolute Auto 0.5 K/mm3 (0.1-0.6); Monocytes Percent Auto 4.8 % (2.6-8.5); Neutrophils Absolute Auto 8.3 K/mm3 (1.3-6.7); Neutrophils Percent Auto 83.9 % (45.5-73.1); Platelet Count Result 256 k/mm3 (150-375); Red Blood Count 4.02 M/mm3 (4.6-6.20); Red Cell Distribution Width 17.5 % (11.5-14.5); White Blood Count 9.8 K/mm3 (4.5-10.0)
[2021-05-16 05:52] LABS: Alanine Aminotransferase 275 U/L (4-50); Albumin Level 2.7 g/dL (3.5-5.1); Alkaline Phosphatase 588 U/L (38-126); Anion Gap 6 mmol/L (8-16); Aspartate Amino Transferase 439 U/L (17-59); Bilirubin,Total 2.8 mg/dL (0.2-1.3); Blood Urea Nitrogen 39 mg/dL (9-20); Calcium 8.1 mg/dL (8.4-10.2); Carbon Dioxide 25 mmol/L (22-30); Chloride 99 mmol/L (98-107); Estimated CRCL calculation 59 ml/min; Estimated Glomerular Filt Rate > 60; Glucose 138 mg/dL (65-110); Magnesium 2.2 mg/dL (1.6-2.3); Phosphorus 2.6 mg/dL (2.5-4.5); Potassium 3.3 mmol/L (3.4-5.0); Sodium 130 mmol/L (137-145)
[2021-05-16 05:55] LABS: INR 1.2; Prothrombin Time 15.3 Seconds (11.1-14.7)
[2021-05-16 05:56] LABS: Partial Thromboplastin Time 32.6 SECONDS (22.3-36.8)
[2021-05-16 05:57] LABS: Ammonia 10 umol/L (9-30)
[2021-05-16 08:20] LABS: Glucose Point of Care 156 mg/dl (65-105)
[2021-05-16] MEDS: MAGNESIUM OXIDE 400 MG TABLET PO ×2 (09:04→18:29)
[2021-05-16] MEDS: carvediloL 3.125 MG TABLET PO (09:04)
[2021-05-16] MEDS: ASPIRIN 81 MG ENTERIC TABLET PO (09:04)
[2021-05-16] MEDS: SPIRONOLACTONE 25 MG TABLET PO (09:04)
[2021-05-16] MEDS: FERROUS SULFATE 324 MG TABLET PO ×2 (09:05→18:29)
[2021-05-16] MEDS: SACUBITRIL/VALSARTAN 12-13 MG TABLET 1 TAB PO ×2 (09:05→20:43)
[2021-05-16] MEDS: SILVERGEL (ELTA) 45 ML 1 APPLIC TOPICAL (09:05)
[2021-05-16] MEDS: POTASSIUM CHLORIDE 20 MEQ TABLET PO (09:05)
[2021-05-16] MEDS: EUCERIN CREAM 120 GM JAR 1 APPLIC TOPICAL (09:05)
[2021-05-16 12:07] LABS: Glucose Point of Care 138 mg/dl (65-105)
[2021-05-16 12:17] LABS: Glucose Point of Care 135 mg/dl (65-105)
[2021-05-16 13:04] LABS: Glucose Point of Care 167 mg/dl (65-105)
--- NOTE | 2021-05-16 13:58 | PM.PNCARD ---
Progress Note: A&P Assessment and Plan (1) Sepsis: Code(s): A41.9 - Sepsis, unspecified organism Status: Acute Assessment and Plan: patient presents with shortness of breath found to have bilateral infiltrates consistent pneumonia and g positive blood cultures. He remains on intravenous cefepime and vancomycin. Feeling better in this regard. Leukocytosis has resolved. Afebrile. Managed by primary service. (2) Acute on chronic systolic HF (heart failure): Code(s): I50.23 - Acute on chronic systolic (congestive) heart failure Status: Acute Assessment and Plan: Lasix held secondary to hypotension and sepsis. Entresto initiated by Dr. Clifton, tolerating well. Remains on spironolactone, carvedilol and aspirin. Resume Lasix if edema and/or weight gain noted. Monitor BP and volume status closely. (3) NICM (nonischemic cardiomyopathy): Code(s): I42.8 - Other cardiomyopathies Status: Acute Assessment and Plan: As above, severe LV dysfunction EF 15-20%, noncompliant with follow-up an outpatient, biventricular ICD. Optimize medical therapy. Outpatient follow-up upon discharge. (4) Pneumonia: Code(s): J18.9 - Pneumonia, unspecified organism Status: Acute Assessment and Plan: Per primary service as above. Continue IV antibiotics, supportive care. (5) Hypotension: Qualifiers: Hypotension type: other hypotension type Qualified Code(s): I95.89 - Other hypotension Code(s): I95.9 - Hypotension, unspecified Status: Acute Assessment and Plan: stable at present, relative hypotension has improved and tolerating medical therapy thus far. Anticipate re-initiation of diuretic therapy soon as he will require this as an outpatient. (6) Biventricular ICD (implantable cardioverter-defibrillator) in place: Code(s): Z95.810 - Presence of automatic (implantable) cardiac defibrillator Status: Acute Assessment and Plan: Paced rhythm on telemetry. Subjective Date/time seen: Date of service:05/16/21 13:58 Follow-up for history cardiomyopathy, CHF, bacteremia patient feeling better, more energetic. Denies shortness of breath. Occasional cough. No chest pain. Edema present but actually improving with improving urine output he states. No new issues overnight. Paced on telemetry. Review of Systems Review of Systems: All systems reviewed & are unremarkable except as noted in HPI and below Constitutional: Constitutional: Reports as per HPI, Reports fatigue and Reports weakness Eyes: Eyes: Reports as per HPI and Reports no additional eye complaints ENT: Reports system reviewed and no additional complaints, except as documented and Reports as per HPI Cardiovascular: Cardiovascular: Reports as per HPI, Denies chest pain, Reports leg edema, Denies palpitations and Reports dyspnea on exertion Respiratory: Respiratory: Reports as per HPI, Reports cough and Reports dyspnea on exertion Gastrointestinal: Gastrointestinal: Reports as per HPI, Reports no additional gastrointestinal complaints and Denies abdominal pain Genitourinary: Genitourinary: Reports as per HPI Musculoskeletal: Musculoskeletal: Reports no additional musculoskeletal complaints and Reports as per HPI Integumentary/Breasts: Skin/Breast: Reports system reviewed and no additional complaints, except as docu and Reports as per HPI Neurologic: Reports system reviewed and no additional complaints, except as documented, Reports as per HPI and Reports weakness Psychiatric: Psychiatric: Reports as per HPI Endocrine: Endocrine: Reports no additional endocrine complaints, Reports as per HPI and Reports fatigue Hematologic/Lymphatic: Hematologic/Lymphatic: Reports no additional hematologic/lymphatic complaints and Reports as per HPI Allergic/Immunologic: Allergic/Immunologic: Reports no additional allergic/immunologic complaints and Reports as per HPI
[2021-05-16 16:41] LABS: Glucose Point of Care 179 mg/dl (65-105)
--- NOTE | 2021-05-16 16:54 | PM.IMPN ---
Progress Note: A&P Assessment and Plan (1) Sepsis: Code(s): A41.9 - Sepsis, unspecified organism Status: Acute Assessment and Plan: Patient presents with severe sepsis and septicemia with tachycardia, leukocytosis, hypotension and elevated lactic acid. Blood cultures growing Staph aureus from both bottles this came back as MSSA. Sources probably skin +/- pneumonia given chest x-ray findings. Continue cefepime and vancomycin. Repeat blood cultures pending. Will change antibiotic to Ancef (2) Pneumonia: Code(s): J18.9 - Pneumonia, unspecified organism Status: Acute Assessment and Plan: Chest x-ray shows bilateral central lower lobe pulmonary infiltrates. COVID is negative. Blood cultures are positive. Continue cefepime and vancomycin. He remains on room air. Repeat CXR with moderate pleural effusions and airspace opacities (3) Hypotension: Qualifiers: Hypotension type: other hypotension type Qualified Code(s): I95.89 - Other hypotension Code(s): I95.9 - Hypotension, unspecified Status: Acute Assessment and Plan: Patient's blood pressure was soft on admission related to the sepsis (and/or cardiogenic) and dropped to 74/60 felt related Lasix. Blood pressure soft but stable. Medications being adjusted and he appears to be tolerating this well. This has improved (4) Elevated liver function tests: Code(s): R94.5 - Abnormal results of liver function studies Status: Acute Assessment and Plan: Elevated liver enzymes noted. Probably hepatic congestion from his uncontrolled heart failure. Levels are much worse today. Stop Lipitor. He did have a reactive HCV antibody screen but HCV RNA levels were negative. Right upper quadrant ultrasound with gallbladder wall thickening secondary to interstitial edema moderate size right pleural effusion and small volume of ascites liver with no focal lesion. Continue to monitor liver enzymes (5) Elevated troponin: Code(s): R77.8 - Other specified abnormalities of plasma proteins Status: Acute Assessment and Plan: Troponin elevated on admission and peaked at 0.28. EKG showing paced rhythm. Echocardiogram as mentioned below. Suspect elevated troponins related to the sepsis, CHF and hypotension. Appreciate Cardiology input. Continue aspirin. Other medication adjustments per Cardiology. (6) Lactic acidosis: Code(s): E87.2 - Acidosis Status: Acute Assessment and Plan: Lactic acid was 6.0 but has been trending downward since admission. SFelt related to sepsis with low EF (and perfusion) also playing a part. Repeat lactic normal. Repeat if clinical condition changes. (7) CHF (congestive heart failure): Qualifiers: Heart failure chronicity: acute Heart failure type: unspecified Qualified Code(s): I50.9 - Heart failure, unspecified Code(s): I50.9 - Heart failure, unspecified Status: Chronic Assessment and Plan: BNP 28K. CXR with pulmonary vascular congestion, subpleural edema and small effusions. CT of the abdomen does show anasarca to suggest the patient's heart failure has been poorly controlled overall. Echocardiogram done shows severely enlarged LV chamber with EF of 15-20%. Unable to perform diuresis given his hypotension. Hypotension could be related to the CHF but more concerning for related to sepsis with positive blood cultures. He remains on room air. Will continue to monitor. Appreciate Cardiology input. (8) Diabetes mellitus: Qualifiers: Diabetes mellitus type: type 2 Diabetes mellitus lobsterman insulin use: without senior care use Diabetes mellitus complication status: without complication Qualified Code(s): E11.9 - Type 2 diabetes mellitus without complications Code(s): E11.9 - Type 2 diabetes mellitus without complications Status: Chronic Assessment and Plan: A1c 10. The patien
[2021-05-16] MEDS: ENOXAPARIN 40 MG/0.4 ML SYRINGE SUB-Q (18:28)
[2021-05-16] MEDS: ceFAZolin 2 GM/D5W 50 ML 2 GM/50 ML BAG IVPB (18:29)
[2021-05-16] MEDS: INSULIN GLARGINE (*BKC) 100 UNITS/ML 18 UNITS SUB-Q (20:46)
[2021-05-16 21:54] LABS: Glucose Point of Care 214 mg/dl (65-105)
[2021-05-17] VITALS (10 sets, daily range): BP systolic 86–98; BP diastolic 50–62; PULSE 78–84; RESP 12–18; TEMP 36.4–36.6; O2SAT 94–99
[2021-05-17] MEDS: ceFAZolin 2 GM/D5W 50 ML 2 GM/50 ML BAG IVPB ×3 (01:54→17:21)
[2021-05-17 06:06] LABS: Basophils Percent Auto 0.4 % (0.2-1.2); Eosinophils Absolute Auto 0.3 K/mm3 (0-0.3); Eosinophils Percent Auto 2.8 % (0-4.4); Hematocrit 34.7 % (42.0-52.0); Hemoglobin 11.4 g/dL (14.0-18.0); Immature Granulocyte Absolute 0.06 K/mm3 (0.00-0.031); Immature Granulocyte Percent A 0.6 % (0-0.5); Lymphocytes Absolute Auto 0.93 K/mm3 (0.9-3.2); Lymphocytes Percent Auto 8.7 % (18.3-44.2); Mean Corpuscular HGB Conc 32.9 g/dl (32-36); Mean Corpuscular Hemoglobin 27.9 pg (26-34); Mean Platelet Volume 11.1 fl (7.4-10.4); Monocytes Absolute Auto 0.7 K/mm3 (0.1-0.6); Monocytes Percent Auto 6.7 % (2.6-8.5); Neutrophils Absolute Auto 8.7 K/mm3 (1.3-6.7); Neutrophils Percent Auto 80.8 % (45.5-73.1); Platelet Count Result 255 k/mm3 (150-375); Red Blood Count 4.08 M/mm3 (4.6-6.20); Red Cell Distribution Width 17.7 % (11.5-14.5); White Blood Count 10.7 K/mm3 (4.5-10.0)
[2021-05-17 06:35] LABS: Alanine Aminotransferase 221 U/L (4-50); Albumin Level 2.6 g/dL (3.5-5.1); Alkaline Phosphatase 591 U/L (38-126); Anion Gap 1 mmol/L (8-16); Aspartate Amino Transferase 289 U/L (17-59); Bilirubin,Total 2.1 mg/dL (0.2-1.3); Blood Urea Nitrogen 28 mg/dL (9-20); Calcium 7.9 mg/dL (8.4-10.2); Carbon Dioxide 29 mmol/L (22-30); Chloride 101 mmol/L (98-107); Estimated CRCL calculation 79 ml/min; Estimated Glomerular Filt Rate > 60; Glucose 101 mg/dL (65-110); Potassium 3.5 mmol/L (3.4-5.0); Sodium 131 mmol/L (137-145)
[2021-05-17 08:16] LABS: Glucose Point of Care 101 mg/dl (65-105)
[2021-05-17] MEDS: FERROUS SULFATE 324 MG TABLET PO ×2 (09:43→17:20)
[2021-05-17] MEDS: ASPIRIN 81 MG ENTERIC TABLET PO (09:43)
[2021-05-17] MEDS: SACUBITRIL/VALSARTAN 12-13 MG TABLET 1 TAB PO ×2 (09:43→21:05)
[2021-05-17] MEDS: SILVERGEL (ELTA) 45 ML 1 APPLIC TOPICAL (09:43)
[2021-05-17] MEDS: EUCERIN CREAM 120 GM JAR 1 APPLIC TOPICAL (09:43)
[2021-05-17] MEDS: SPIRONOLACTONE 25 MG TABLET PO (09:43)
[2021-05-17] MEDS: MAGNESIUM OXIDE 400 MG TABLET PO ×2 (09:43→17:20)
--- NOTE | 2021-05-17 10:10 | PC.NURSE ---
awaiting pharmacy to send 1000 cefazolin
--- NOTE | 2021-05-17 11:01 | PM.PNCARD ---
Progress Note: A&P Assessment and Plan (1) Sepsis: Code(s): A41.9 - Sepsis, unspecified organism Status: Acute Assessment and Plan: Patient presented with shortness of breath found to have bilateral infiltrates consistent pneumonia and gram positive blood cultures. He remains on intravenous cefepime and vancomycin. Feeling better in this regard. Leukocytosis has resolved. Afebrile. Managed by primary service. Diuretics held secondary to hypotension and ROSAURA felt secondary to sepsis. (2) Acute on chronic systolic HF (heart failure): Code(s): I50.23 - Acute on chronic systolic (congestive) heart failure Status: Acute Assessment and Plan: Lasix held secondary to hypotension and sepsis. Entresto initiated this hospitalization, tolerating well thus far. Resume Lasix if edema and/or weight gain noted. Monitor BP and volume status closely. -Hold off on resuming Lasix today but consider resuming tomorrow morning. Will need to be cautious in this regard. Remains on Spironolactone, Entresto, Coreg. Discussed with pt plan of care and rationale. He is comfortable and verbalized understanding. (3) NICM (nonischemic cardiomyopathy): Code(s): I42.8 - Other cardiomyopathies Status: Acute Assessment and Plan: As above, severe LV dysfunction EF 15-20%, noncompliant with follow-up an outpatient, biventricular ICD. Optimize medical therapy. Outpatient follow-up upon discharge. (4) Pneumonia: Code(s): J18.9 - Pneumonia, unspecified organism Status: Acute Assessment and Plan: Per primary service as above. Continue IV antibiotics, supportive care. (5) Hypotension: Qualifiers: Hypotension type: other hypotension type Qualified Code(s): I95.89 - Other hypotension Code(s): I95.9 - Hypotension, unspecified Status: Acute Assessment and Plan: stable past 48 hours, relative hypotension has improved and tolerating medical therapy thus far. Anticipate re-initiation of diuretic therapy soon as he will require this as an outpatient. (6) Biventricular ICD (implantable cardioverter-defibrillator) in place: Code(s): Z95.810 - Presence of automatic (implantable) cardiac defibrillator Status: Acute Assessment and Plan: Paced rhythm on telemetry. Subjective Date/time seen: Date of Service: 05/17/21 11:01 Follow up for CM, CHF, sepsis Patient feels better this morning. Less fatigue, denies shortness of breath notes some nasal congestion. Denies abdominal pain. Edema persists but no worse he states. Denies chest pain or palpitations. No other issues overnight. Review of Systems Review of Systems: All systems reviewed & are unremarkable except as noted in HPI and below Constitutional: Constitutional: Reports as per HPI, Reports fatigue and Reports weakness Eyes: Eyes: Reports as per HPI and Reports no additional eye complaints ENT: Reports system reviewed and no additional complaints, except as documented and Reports as per HPI Cardiovascular: Cardiovascular: Reports as per HPI, Denies chest pain, Reports leg edema, Denies palpitations and Reports dyspnea on exertion Respiratory: Respiratory: Reports as per HPI, Reports cough and Reports dyspnea on exertion Gastrointestinal: Gastrointestinal: Reports as per HPI, Reports no additional gastrointestinal complaints and Denies abdominal pain Genitourinary: Genitourinary: Reports as per HPI Musculoskeletal: Musculoskeletal: Reports no additional musculoskeletal complaints and Reports as per HPI Integumentary/Breasts: Skin/Breast: Reports system reviewed and no additional complaints, except as docu and Reports as per HPI Neurologic: Reports system reviewed and no additional complaints, except as documented, Reports as per HPI and Reports weakness Psychiatric: Psychiatric: Reports as per HPI Endocrine: Endocrine: Reports no additional endocrine complaints, Reports as per
--- NOTE | 2021-05-17 11:08 | PC.NURSE ---
spoke with Dr. Farooq about patient coreg this morning. agreed to hold due to low blood pressure as they did the previous night.
[2021-05-17 11:46] LABS: Glucose Point of Care 189 mg/dl (65-105)
[2021-05-17 11:48] LABS: Glucose Point of Care 153 mg/dl (65-105)
--- NOTE | 2021-05-17 15:34 | PM.IMPN ---
Progress Note: A&P Assessment and Plan (1) Sepsis: Code(s): A41.9 - Sepsis, unspecified organism Status: Acute Assessment and Plan: Patient presents with severe sepsis and septicemia with tachycardia, leukocytosis, hypotension and elevated lactic acid. Blood cultures growing Staph aureus from both bottles this came back as MSSA. Sources probably skin +/- pneumonia given chest x-ray findings. Continue cefepime and vancomycin. Repeat blood cultures use still positive for Staph aureus. Antibiotics changed to Ancef. Will recheck blood cultures again tomorrow. TTE was negative for any vegetation. If persistent may need ROMI (2) Pneumonia: Code(s): J18.9 - Pneumonia, unspecified organism Status: Acute Assessment and Plan: Chest x-ray shows bilateral central lower lobe pulmonary infiltrates. COVID is negative. Blood cultures are positive. Continue cefepime and vancomycin. He remains on room air. Repeat CXR with moderate pleural effusions and airspace opacities. Antibiotics changed to Ancef (3) Hypotension: Qualifiers: Hypotension type: other hypotension type Qualified Code(s): I95.89 - Other hypotension Code(s): I95.9 - Hypotension, unspecified Status: Acute Assessment and Plan: Patient's blood pressure was soft on admission related to the sepsis (and/or cardiogenic) and dropped to 74/60 felt related Lasix. Blood pressure soft but stable. Medications being adjusted and he appears to be tolerating this well. This has improved per still lowish normal. (4) Elevated liver function tests: Code(s): R94.5 - Abnormal results of liver function studies Status: Acute Assessment and Plan: Elevated liver enzymes noted. Probably hepatic congestion from his uncontrolled heart failure. Levels are much worse today. Stop Lipitor. He did have a reactive HCV antibody screen but HCV RNA levels were negative. Right upper quadrant ultrasound with gallbladder wall thickening secondary to interstitial edema moderate size right pleural effusion and small volume of ascites liver with no focal lesion. Continue to monitor liver enzymes and continues to improve (5) Elevated troponin: Code(s): R77.8 - Other specified abnormalities of plasma proteins Status: Acute Assessment and Plan: Troponin elevated on admission and peaked at 0.28. EKG showing paced rhythm. Echocardiogram as mentioned below. Suspect elevated troponins related to the sepsis, CHF and hypotension. Appreciate Cardiology input. Continue aspirin. Other medication adjustments per Cardiology. (6) Lactic acidosis: Code(s): E87.2 - Acidosis Status: Acute Assessment and Plan: Lactic acid was 6.0 but has been trending downward since admission. SFelt related to sepsis with low EF (and perfusion) also playing a part. Repeat lactic normal. Repeat if clinical condition changes. (7) CHF (congestive heart failure): Qualifiers: Heart failure chronicity: acute Heart failure type: unspecified Qualified Code(s): I50.9 - Heart failure, unspecified Code(s): I50.9 - Heart failure, unspecified Status: Chronic Assessment and Plan: BNP 28K. CXR with pulmonary vascular congestion, subpleural edema and small effusions. CT of the abdomen does show anasarca to suggest the patient's heart failure has been poorly controlled overall. Echocardiogram done shows severely enlarged LV chamber with EF of 15-20%. Unable to perform diuresis given his hypotension. Hypotension could be related to the CHF but more concerning for related to sepsis with positive blood cultures. He remains on room air. Will continue to monitor. Appreciate Cardiology input. (8) Diabetes mellitus: Qualifiers: Diabetes mellitus type: type 2 Diabetes mellitus retirement insulin use: without superintendent terminal use Diabetes mellitus complication status: without complicat
[2021-05-17 16:32] LABS: Glucose Point of Care 198 mg/dl (65-105)
[2021-05-17] MEDS: ENOXAPARIN 40 MG/0.4 ML SYRINGE SUB-Q (17:20)
[2021-05-17] MEDS: INSULIN GLARGINE (*BKC) 100 UNITS/ML 18 UNITS SUB-Q (21:11)
[2021-05-17 23:49] LABS: Glucose Point of Care 215 mg/dl (65-105)
[2021-05-18] VITALS (10 sets, daily range): BP systolic 92–122; BP diastolic 58–72; PULSE 72–87; RESP 16; TEMP 35.8–36.5; O2SAT 97–98
[2021-05-18 02:19] LABS: Pneumococcal Antigen Urine Not Detected (Not Detected)
[2021-05-18] MEDS: ceFAZolin 2 GM/D5W 50 ML 2 GM/50 ML BAG IVPB ×3 (02:38→17:02)
[2021-05-18 06:45] LABS: Basophils Absolute Auto 0.1 K/mm3 (0.0-0.1); Basophils Percent Auto 0.5 % (0.2-1.2); Eosinophils Absolute Auto 0.4 K/mm3 (0-0.3); Hematocrit 37.3 % (42.0-52.0); Hemoglobin 12.1 g/dL (14.0-18.0); Immature Granulocyte Absolute 0.07 K/mm3 (0.00-0.031); Immature Granulocyte Percent A 0.7 % (0-0.5); Lymphocytes Absolute Auto 1.31 K/mm3 (0.9-3.2); Lymphocytes Percent Auto 12.7 % (18.3-44.2); Mean Corpuscular HGB Conc 32.4 g/dl (32-36); Mean Corpuscular Hemoglobin 26.8 pg (26-34); Mean Corpuscular Volume 82.7 fl (80-100); Mean Platelet Volume 11.2 fl (7.4-10.4); Monocytes Absolute Auto 1.1 K/mm3 (0.1-0.6); Monocytes Percent Auto 10.2 % (2.6-8.5); Neutrophils Absolute Auto 7.4 K/mm3 (1.3-6.7); Neutrophils Percent Auto 71.9 % (45.5-73.1); Platelet Count Result 326 k/mm3 (150-375); Red Blood Count 4.51 M/mm3 (4.6-6.20); Red Cell Distribution Width 18.3 % (11.5-14.5); White Blood Count 10.3 K/mm3 (4.5-10.0)
[2021-05-18 07:08] LABS: Alanine Aminotransferase 142 U/L (4-50); Albumin Level 2.7 g/dL (3.5-5.1); Alkaline Phosphatase 768 U/L (38-126); Anion Gap 3 mmol/L (8-16); Aspartate Amino Transferase 226 U/L (17-59); Bilirubin,Total 1.9 mg/dL (0.2-1.3); Blood Urea Nitrogen 20 mg/dL (9-20); Calcium 8.1 mg/dL (8.4-10.2); Carbon Dioxide 30 mmol/L (22-30); Chloride 100 mmol/L (98-107); Estimated CRCL calculation 79 ml/min; Estimated Glomerular Filt Rate > 60; Glucose 65 mg/dL (65-110); Magnesium 2.4 mg/dL (1.6-2.3); Potassium 3.5 mmol/L (3.4-5.0); Sodium 133 mmol/L (137-145)
[2021-05-18] MEDS: GLUCOSE ORAL GEL 15 GM OF GLUCSE IN 37.5 GM TUBE PO (07:49)
[2021-05-18 08:15] LABS: Glucose Point of Care 80 mg/dl (65-105)
[2021-05-18 08:16] LABS: Glucose Point of Care 47 mg/dl (65-105)
--- NOTE | 2021-05-18 08:29 | PM.PNCARD ---
Progress Note: A&P Assessment and Plan (1) Sepsis: Code(s): A41.9 - Sepsis, unspecified organism Status: Acute Assessment and Plan: Patient presented with shortness of breath found to have bilateral infiltrates consistent pneumonia and gram positive blood cultures. He remains on intravenous cefepime and vancomycin. Feeling better in this regard. Leukocytosis has resolved. Afebrile. Managed by primary service. (2) Acute on chronic systolic HF (heart failure): Code(s): I50.23 - Acute on chronic systolic (congestive) heart failure Status: Acute Assessment and Plan: Lasix held secondary to hypotension and sepsis. Entresto initiated this hospitalization, tolerating well thus far. -Cautiously resume lasix this morning with close monitoring of BP and renal function. Hold Entresto and Spironolactone this a.m. to avoid hypotension with resumption of lasix. (3) NICM (nonischemic cardiomyopathy): Code(s): I42.8 - Other cardiomyopathies Status: Acute Assessment and Plan: As above, severe LV dysfunction EF 15-20%, noncompliant with follow-up an outpatient, biventricular ICD. Optimize medical therapy. Outpatient follow-up upon discharge. (4) Pneumonia: Code(s): J18.9 - Pneumonia, unspecified organism Status: Acute Assessment and Plan: Per primary service as above. Continue IV antibiotics, supportive care. (5) Hypotension: Qualifiers: Hypotension type: other hypotension type Qualified Code(s): I95.89 - Other hypotension Code(s): I95.9 - Hypotension, unspecified Status: Acute Assessment and Plan: stable past 48 hours. As above restart lasix this a.m. and hold entresto, spironolactone this a.m. only. Observe BP response to lasix. Likely will tolerate lasix in addition to entresto, coreg, spironolactone. (6) Biventricular ICD (implantable cardioverter-defibrillator) in place: Code(s): Z95.810 - Presence of automatic (implantable) cardiac defibrillator Status: Acute Assessment and Plan: Paced rhythm on telemetry, did have 6 beat run of NSVT on telemetry this morning. Electrolytes o.k...continue to monitor on tele, continue beta víctor. Subjective Date/time seen: 05/18/21 08:29 Cardiology follow up for CHF Not feeling very well this morning, was hypoglycemic earlier and continues to feel off ...blood sugar has been corrected. Denies shortness of breath or chest pain. Had 6 beat run NSVT on telemetry this a.m. he was asymptomatic with this. Review of Systems Review of Systems: All systems reviewed & are unremarkable except as noted in HPI and below Constitutional: Constitutional: Reports as per HPI, Reports fatigue and Reports weakness Eyes: Eyes: Reports as per HPI and Reports no additional eye complaints ENT: Reports system reviewed and no additional complaints, except as documented and Reports as per HPI Cardiovascular: Cardiovascular: Reports as per HPI, Denies chest pain, Reports leg edema, Denies palpitations and Reports dyspnea on exertion Respiratory: Respiratory: Reports as per HPI, Reports cough and Reports dyspnea on exertion Gastrointestinal: Gastrointestinal: Reports as per HPI, Reports no additional gastrointestinal complaints and Denies abdominal pain Genitourinary: Genitourinary: Reports as per HPI Musculoskeletal: Musculoskeletal: Reports no additional musculoskeletal complaints and Reports as per HPI Integumentary/Breasts: Skin/Breast: Reports system reviewed and no additional complaints, except as docu and Reports as per HPI Neurologic: Reports system reviewed and no additional complaints, except as documented, Reports as per HPI and Reports weakness Psychiatric: Psychiatric: Reports as per HPI Endocrine: Endocrine: Reports no additional endocrine complaints, Reports as per HPI, Reports fatigue and Denies palpitations Hematologic/Lymphatic: Hematologic/Lymphatic: Report
[2021-05-18] MEDS: FERROUS SULFATE 324 MG TABLET PO (09:20)
[2021-05-18] MEDS: ASPIRIN 81 MG ENTERIC TABLET PO (09:20)
[2021-05-18] MEDS: carvediloL 3.125 MG TABLET PO ×2 (09:20→20:22)
[2021-05-18] MEDS: MAGNESIUM OXIDE 400 MG TABLET PO ×2 (09:22→16:53)
[2021-05-18] MEDS: FUROSEMIDE 40 MG TABLET PO ×2 (09:22→16:53)
[2021-05-18] MEDS: EUCERIN CREAM 120 GM JAR 1 APPLIC TOPICAL (09:25)
[2021-05-18] MEDS: SILVERGEL (ELTA) 45 ML 1 APPLIC TOPICAL (09:25)
[2021-05-18 11:43] LABS: Glucose Point of Care 114 mg/dl (65-105)
--- NOTE | 2021-05-18 13:00 | PM.CNOR ---
Assessment and Plan Assessment and plan (1) Diabetic foot ulcer: Qualifiers: Diabetes mellitus type: due to underlying condition Diabetic foot ulcer location: unspecified part of foot Laterality: unspecified laterality Non-pressure ulcer stage: with necrosis of muscle Qualified Code(s): E08.621 - Diabetes mellitus due to underlying condition with foot ulcer; L97.503 - Non-pressure chronic ulcer of other part of unspecified foot with necrosis of muscle Code(s): E11.621 - Type 2 diabetes mellitus with foot ulcer; L97.509 - Non-pressure chronic ulcer of other part of unspecified foot with unspecified severity Status: Acute Assessment and Plan: Bilateral diabetic foot ulcers and necrotic toes on the left hallux and second ray. B/L LE discoloration. Decreased pedal pulses. Recommend bilateral foot radiographs and ABIs. Continue dressing changes per wound care team in the interim. Will continue to follow. (2) Necrotic toes: Code(s): I96 - Gangrene, not elsewhere classified Status: Acute Assessment and Plan: Blueish discoloration of the left hallux, necrosis of the 2nd ray. Faintly palpable pedal pulse RLE. Unable to palpate LLE pedal pulse. ABIs last performed in 2020. Recommend repeat ABIs at this time for proper surgical planning. History of Present Illness HPI Consult date: 05/18/21 Consult reason: other ( Bilateral diabetic foot ulcer) Chief complaint: CHF acute exacerbation Narrative: 70-year-old male admitted for CHF exacerbation. Well known to the Orthopedic service for previous surgical intervention on the right foot with 3rd ray amputation and DFU debridement and prolonged following in the outpatient orthopedic clinic. Wound on the right foot closed at that time and patient was instructed to get custom orthotics/depth shoes which he was noncompliant with. he has been lost to follow up. Patient now found to have a new ulcer on the plantar aspect of the 4th MTP joint as well as a necrotic 2nd toe and discolored hallux. Orthopedic consult requested by hospitalist physician. Review of Systems Constitutional: Constitutional: Reports no additional constitutional complaints, Denies excessive sweating, Reports fatigue, Denies fever(s) and Denies weight gain Eyes: Eyes: Reports no additional eye complaints and Denies change in vision ENT: Reports system reviewed and no additional complaints, except as documented and Reports Normal hearing present Cardiovascular: Cardiovascular: Denies diaphoresis, Denies leg ulcers and Reports dyspnea on exertion Respiratory: Respiratory: Reports cough and Denies dyspnea on exertion Gastrointestinal: Gastrointestinal: Reports no additional gastrointestinal complaints, Denies abdominal pain, Denies constipation, Denies nausea and Denies vomiting Genitourinary: Genitourinary: Reports no additional male genitourinary complaints, Denies hematuria and Denies urinary frequency Musculoskeletal: Musculoskeletal: Reports no additional musculoskeletal complaints and Reports as per HPI Neurologic: Reports Normal hearing present Endocrine: Endocrine: Reports no additional endocrine complaints, Denies change in body appearance, Denies excessive sweating, Denies polyphagia, Denies polydipsia and Denies polyuria [facility] Past Medical History Medical History (Updated 05/18/21 @ 14:07 by ALIZA Astudillo) Apical mural thrombus CHF (congestive heart failure) Diabetes mellitus Diabetes mellitus with neuropathy Diabetic ulcer of right foot associated with diabetes mellitus due to underlying condition Dyslipidemia Essential (primary) hypertension Necrotic toes NICM (nonischemic cardiomyopathy) NSVT (nonsustained ventricular tachycardia) PAT (paroxysmal atrial tachycardia) Peripheral arterial disease Shoulder fracture, left Staph infection thigh Vitamin D deficiency Surgical History Surgical History History of
--- NOTE | 2021-05-18 14:40 | PM.IMPN ---
Progress Note: A&P Assessment and Plan (1) Sepsis: Code(s): A41.9 - Sepsis, unspecified organism Status: Acute Assessment and Plan: Patient presents with severe sepsis and septicemia with tachycardia, leukocytosis, hypotension and elevated lactic acid. Blood cultures growing MSSA from both bottles. Sources probably osteo, skin +/- pneumonia given chest x-ray findings. Treated with cefepime and vancomycin but changed to Ancef. Repeat blood cultures use still positive for Staph aureus. TTE was negative for any vegetation. BCx repeated today. If persistent bacteremia, may need ROMI (2) Pneumonia: Code(s): J18.9 - Pneumonia, unspecified organism Status: Acute Assessment and Plan: Chest x-ray shows bilateral lower lobe pulmonary infiltrates. COVID is negative. Blood cultures are positive for MSSA. He remains on room air. Repeat CXR with moderate pleural effusions and airspace opacities. Antibiotics changed to Ancef. No chest pain to suggest he has a parapneumonic effusion and felt more likely related to his CHF (3) Osteomyelitis: Qualifiers: Osteomyelitis type: other acute Osteomyelitis location: foot Laterality: right Qualified Code(s): M86.171 - Other acute osteomyelitis, right ankle and foot Code(s): M86.9 - Osteomyelitis, unspecified Status: Acute Assessment and Plan: Left 1st/2nd toe look worse today. Left foot xray showing acute osteomyelitis involving second distal phalanx with pathologic fracture and chronic-appearing erosions and deformities involving all of the rays, likely chronic osteomyelitis. 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 Arterial dopple showing THOMAS not measurable but normal right TBI and left measuring 0.43 consistent with PAD. Probably the source of the bacteremia. Continue IV abx. (4) Necrotic toes: Code(s): I96 - Gangrene, not elsewhere classified Status: Acute Assessment and Plan: As above (5) Hypotension: Qualifiers: Hypotension type: other hypotension type Qualified Code(s): I95.89 - Other hypotension Code(s): I95.9 - Hypotension, unspecified Status: Acute Assessment and Plan: Patient's blood pressure was soft on admission related to the sepsis (and/or cardiogenic) and dropped to 74/60 felt related Lasix. Blood pressure is still soft at times but more stable. Medications being adjusted and he appears to be tolerating this well. Monitor closely with the addition of Lasix (6) Elevated liver function tests: Code(s): R94.5 - Abnormal results of liver function studies Status: Acute Assessment and Plan: Elevated liver enzymes noted. Probably hepatic congestion from his uncontrolled heart failure. We stopped Lipitor. He did have a reactive HCV antibody screen but HCV RNA levels were negative. Right upper quadrant ultrasound with gallbladder wall thickening secondary to interstitial edema moderate size right pleural effusion and small volume of ascites liver with no focal lesion. Levels are improved. Lasix may held with the hepatic congestion. Continue to monitor liver enzymes (7) Elevated troponin: Code(s): R77.8 - Other specified abnormalities of plasma proteins Status: Acute Assessment and Plan: Troponin elevated on admission and peaked at 0.28. EKG showing paced rhythm. Echocardiogram as mentioned below. Suspect elevated troponins related to the sepsis, CHF and hypotension. Appreciate Cardiology input. Continue aspirin, Coreg. Other medication adjustments per Cardiology. (8) Lactic acidosis: Code(s): E87.2 - Acidosis Status: Acute Assessment and Plan: Lactic acid was 6.0 but has been trending downward since admission. [place]rombie related to sepsis w
[2021-05-18 15:15] LABS: Mycoplasma IgM Antibody Titer 81 U/mL (<770)
[2021-05-18 16:37] LABS: Glucose Point of Care 238 mg/dl (65-105)
[2021-05-18] MEDS: POTASSIUM CHLORIDE 20 MEQ TABLET 40 MEQ PO (16:53)
[2021-05-18] MEDS: INSULIN ASPART (*BKC) 100 UNITS/ML SUB-Q (16:54)
[2021-05-18] MEDS: ENOXAPARIN 40 MG/0.4 ML SYRINGE SUB-Q (17:00)
[2021-05-18 19:39] LABS: Legionella pneumophila Ag Ur Not Detected (Not Detected)
[2021-05-18] MEDS: INSULIN GLARGINE (*BKC) 100 UNITS/ML 16 UNITS SUB-Q (20:17)
[2021-05-18] MEDS: SACUBITRIL/VALSARTAN 12-13 MG TABLET 1 TAB PO (20:22)
[2021-05-18 20:53] LABS: Glucose Point of Care 274 mg/dl (65-105)
[2021-05-19] VITALS (14 sets, daily range): BP systolic 92–104; BP diastolic 50–66; PULSE 69–79; RESP 14–18; TEMP 36.1–36.8; O2SAT 97–100
[2021-05-19] MEDS: ceFAZolin 2 GM/D5W 50 ML 2 GM/50 ML BAG IVPB ×3 (01:21→17:25)
[2021-05-19 01:31] LABS: Glucose Point of Care 111 mg/dl (65-105)
[2021-05-19 05:37] LABS: Basophils Absolute Auto 0.1 K/mm3 (0.0-0.1); Basophils Percent Auto 0.6 % (0.2-1.2); Eosinophils Absolute Auto 0.4 K/mm3 (0-0.3); Eosinophils Percent Auto 4.1 % (0-4.4); Hematocrit 34.1 % (42.0-52.0); Hemoglobin 11.2 g/dL (14.0-18.0); Immature Granulocyte Percent A 1.1 % (0-0.5); Lymphocytes Absolute Auto 1.31 K/mm3 (0.9-3.2); Mean Corpuscular HGB Conc 32.8 g/dl (32-36); Mean Corpuscular Hemoglobin 27.1 pg (26-34); Mean Corpuscular Volume 82.4 fl (80-100); Mean Platelet Volume 10.9 fl (7.4-10.4); Monocytes Absolute Auto 0.8 K/mm3 (0.1-0.6); Monocytes Percent Auto 9.4 % (2.6-8.5); Neutrophils Absolute Auto 6.1 K/mm3 (1.3-6.7); Neutrophils Percent Auto 69.8 % (45.5-73.1); Platelet Count Result 301 k/mm3 (150-375); Red Blood Count 4.14 M/mm3 (4.6-6.20); Red Cell Distribution Width 18.6 % (11.5-14.5); White Blood Count 8.8 K/mm3 (4.5-10.0)
[2021-05-19 05:48] LABS: Alanine Aminotransferase 74 U/L (4-50); Albumin Level 2.5 g/dL (3.5-5.1); Alkaline Phosphatase 675 U/L (38-126); Anion Gap 1 mmol/L (8-16); Aspartate Amino Transferase 150 U/L (17-59); Bilirubin,Total 1.3 mg/dL (0.2-1.3); Blood Urea Nitrogen 14 mg/dL (9-20); CRP 3.4 mg/dL (<1.0); Calcium 7.6 mg/dL (8.4-10.2); Carbon Dioxide 31 mmol/L (22-30); Chloride 101 mmol/L (98-107); Estimated CRCL calculation 90 ml/min; Estimated Glomerular Filt Rate > 60; Glucose 88 mg/dL (65-110); Magnesium 2.2 mg/dL (1.6-2.3); Phosphorus 2.7 mg/dL (2.5-4.5); Potassium 3.9 mmol/L (3.4-5.0); Sodium 133 mmol/L (137-145)
--- NOTE | 2021-05-19 07:20 | PM.CNOR ---
Assessment and Plan Assessment and plan (1) Diabetic foot ulcer: Qualifiers: Diabetes mellitus type: due to underlying condition Diabetic foot ulcer location: unspecified part of foot Laterality: unspecified laterality Non-pressure ulcer stage: with necrosis of muscle Qualified Code(s): E08.621 - Diabetes mellitus due to underlying condition with foot ulcer; L97.503 - Non-pressure chronic ulcer of other part of unspecified foot with necrosis of muscle Code(s): E11.621 - Type 2 diabetes mellitus with foot ulcer; L97.509 - Non-pressure chronic ulcer of other part of unspecified foot with unspecified severity Status: Acute Assessment and Plan: right plantar 4th metatarsal diabetic foot ulcer, left 2nd toe distal tip ulcer. Appears to be mixed picture of infection with poor blood flow /arterial disease. Left 2nd toe and hallux may be more result of gangrene versus infection. Radiographs reviewed. Not sure if changes are acute osteo versus chronic neuropathy and changes associated with Arterial disease. Orthopedic consultation reviewed. Agree with assessment and plan. Patient has declined surgical treatment at this. No immediate emergency surgical indications. May try enzymatic and local debridement with dressing changes. Agree with intravenous antibiotics. Appreciate wound care nurse consultation. May be more amenable to definitive surgical care when patient more stable - improved edema, improved heart function, improved nutrition, improved blood pressure control. Will continue to follow. (2) Diabetes mellitus with neuropathy: Qualifiers: Diabetes mellitus type: type 2 Diabetes mellitus jail insulin use: without jail use Qualified Code(s): E11.40 - Type 2 diabetes mellitus with diabetic neuropathy, unspecified Code(s): E11.40 - Type 2 diabetes mellitus with diabetic neuropathy, unspecified Status: Acute (3) Necrotic toes: Code(s): I96 - Gangrene, not elsewhere classified Status: Acute (4) PAOD (peripheral arterial occlusive disease): Code(s): I77.9 - Disorder of arteries and arterioles, unspecified Status: Acute Assessment and Plan: May consider CT angiogram to see if any possible improvement to peripheral blood flow is an option. History of Present Illness HPI Consult date: 05/19/21 Requesting physician: Sky Salgado MD Consult reason: other (Diabetic foot ulcers) Chief complaint: CHF acute exacerbation Narrative: patient known to service for previous right diabetic foot ulcers with osteomyelitis requiring surgical treatment. Now with bilateral diabetic foot ulcers. Patient states he has noted changes in his feet over the past several weeks. He felt like nobody was able to see him due to COVID. Right foot with plantar wound which patient calls blister. Left 2nd toe changes also for the past several weeks per patient report. [facility] Past Medical History Medical History (Updated 05/19/21 @ 07:25 by Ken Alva MD) Apical mural thrombus CHF (congestive heart failure) Diabetes mellitus Diabetes mellitus with neuropathy Diabetic ulcer of right foot associated with diabetes mellitus due to underlying condition Dyslipidemia Essential (primary) hypertension Necrotic toes NICM (nonischemic cardiomyopathy) NSVT (nonsustained ventricular tachycardia) PAOD (peripheral arterial occlusive disease) PAT (paroxysmal atrial tachycardia) Peripheral arterial disease Shoulder fracture, left Staph infection thigh Vitamin D deficiency Surgical History Surgical History History 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 Sibling
[2021-05-19] MEDS: ASPIRIN 81 MG ENTERIC TABLET PO (08:09)
[2021-05-19] MEDS: carvediloL 3.125 MG TABLET PO ×2 (08:09→20:23)
[2021-05-19] MEDS: SACUBITRIL/VALSARTAN 12-13 MG TABLET 1 TAB PO ×2 (08:09→20:23)
[2021-05-19] MEDS: FUROSEMIDE 40 MG TABLET PO ×2 (08:09→16:43)
[2021-05-19] MEDS: MAGNESIUM OXIDE 400 MG TABLET PO ×2 (08:09→16:43)
[2021-05-19] MEDS: SPIRONOLACTONE 25 MG TABLET PO (08:09)
[2021-05-19] MEDS: SILVERGEL (ELTA) 45 ML 1 APPLIC TOPICAL (08:10)
[2021-05-19] MEDS: EUCERIN CREAM 120 GM JAR 1 APPLIC TOPICAL (08:10)
[2021-05-19 08:40] LABS: Glucose Point of Care 145 mg/dl (65-105)
--- NOTE | 2021-05-19 08:45 | PM.PNCARD ---
Progress Note: A&P Assessment and Plan (1) Sepsis: Code(s): A41.9 - Sepsis, unspecified organism Status: Acute Assessment and Plan: Patient presented with shortness of breath found to have bilateral infiltrates consistent pneumonia and gram positive blood cultures. He remains on intravenous cefepime and vancomycin. Feeling better in this regard. Leukocytosis has resolved. Afebrile. Managed by primary service. (2) Acute on chronic systolic HF (heart failure): Code(s): I50.23 - Acute on chronic systolic (congestive) heart failure Status: Acute Assessment and Plan: Improving. His furosemide has been resumed at this point and his kidney function remains stable today. Continue medical therapy with Entresto, spironolactone, carvedilol. Hopefully we will be able to titrate these to target doses as an outpatient. (3) NICM (nonischemic cardiomyopathy): Code(s): I42.8 - Other cardiomyopathies Status: Acute Assessment and Plan: As above, severe LV dysfunction EF 15-20%, noncompliant with follow-up an outpatient, biventricular ICD. Optimize medical therapy. Outpatient follow-up upon discharge. (4) Pneumonia: Code(s): J18.9 - Pneumonia, unspecified organism Status: Acute Assessment and Plan: Per primary service as above. Continue IV antibiotics, supportive care. (5) Hypotension: Qualifiers: Hypotension type: other hypotension type Qualified Code(s): I95.89 - Other hypotension Code(s): I95.9 - Hypotension, unspecified Status: Acute Assessment and Plan: This is stable. He has been maintaining adequate blood pressure with resumption of furosemide in addition to Entresto, spironolactone, Coreg. Continue close monitoring. (6) Biventricular ICD (implantable cardioverter-defibrillator) in place: Code(s): Z95.810 - Presence of automatic (implantable) cardiac defibrillator Status: Acute Assessment and Plan: Paced rhythm on telemetry, did have 6 beat run of NSVT on telemetry yesterday morning and a couple short 3-4 beat runs noted in the last 24 hours. Electrolytes o.k...continue to monitor on tele, continue beta víctor. He has an ICD. Subjective Date/time seen: 05/19/21 08:45 cardiology follow-up for CHF He is feeling much better today. Breathing is better and his swelling has improved with resumption of furosemide. He complaining of feeling weak and deconditioned. Review of Systems Review of Systems: All systems reviewed & are unremarkable except as noted in HPI and below Constitutional: Constitutional: Reports as per HPI, Reports fatigue and Reports weakness Eyes: Eyes: Reports as per HPI and Reports no additional eye complaints ENT: Reports system reviewed and no additional complaints, except as documented and Reports as per HPI Cardiovascular: Cardiovascular: Reports as per HPI, Denies chest pain, Reports leg edema, Denies palpitations and Reports dyspnea on exertion Respiratory: Respiratory: Reports as per HPI, Reports cough and Reports dyspnea on exertion Gastrointestinal: Gastrointestinal: Reports as per HPI, Reports no additional gastrointestinal complaints and Denies abdominal pain Genitourinary: Genitourinary: Reports as per HPI Musculoskeletal: Musculoskeletal: Reports no additional musculoskeletal complaints and Reports as per HPI Integumentary/Breasts: Skin/Breast: Reports system reviewed and no additional complaints, except as docu and Reports as per HPI Neurologic: Reports system reviewed and no additional complaints, except as documented, Reports as per HPI and Reports weakness Psychiatric: Psychiatric: Reports as per HPI Endocrine: Endocrine: Reports no additional endocrine complaints, Reports as per HPI, Reports fatigue and Denies palpitations Hematologic/Lymphatic: Hematologic/Lymphatic: Reports no additional hematologic/lymphatic complaints and Reports as per HPI Allergic/Imm
[2021-05-19] MEDS: COLLAGENASE OINT 30 GM TUBE 1 APPLIC TOPICAL (09:51)
[2021-05-19 11:47] LABS: Glucose Point of Care 202 mg/dl (65-105)
[2021-05-19] MEDS: INSULIN ASPART (*BKC) 100 UNITS/ML SUB-Q (12:01)
--- NOTE | 2021-05-19 14:07 | PM.IMPN ---
Progress Note: A&P Assessment and Plan (1) Sepsis: Code(s): A41.9 - Sepsis, unspecified organism Status: Acute Assessment and Plan: Patient presents with severe sepsis and septicemia with tachycardia, leukocytosis, hypotension and elevated lactic acid. Blood cultures 05/13 growing MSSA from both bottles. Sources probably osteo, skin +/- pneumonia given chest x-ray findings. Treated with cefepime and vancomycin but changed to Ancef. Repeat blood cultures 05/15 still positive for MSSA. TTE was negative for any vegetation. BCx 05/18 NGTD. If persistent bacteremia, may need ROMI. Will need humanities division chair IV abx for at least 6 weeks. (2) Pneumonia: Code(s): J18.9 - Pneumonia, unspecified organism Status: Acute Assessment and Plan: Chest x-ray shows bilateral lower lobe pulmonary infiltrates. COVID is negative. Blood cultures are positive for MSSA. He remains on room air. Repeat CXR with moderate pleural effusions and airspace opacities. Antibiotics changed to Ancef. No chest pain to suggest he has a parapneumonic effusion and felt more likely related to his CHF. Repeat CXR in the morning. (3) Osteomyelitis: Qualifiers: Osteomyelitis type: other acute Osteomyelitis location: foot Laterality: right Qualified Code(s): M86.171 - Other acute osteomyelitis, right ankle and foot Code(s): M86.9 - Osteomyelitis, unspecified Status: Acute Assessment and Plan: Left 1st/2nd toe partially necrotic. Left foot xray showing acute osteomyelitis involving second distal phalanx with pathologic fracture and chronic-appearing erosions and deformities involving all of the rays, likely chronic osteomyelitis. 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 Arterial doppler showing THOMAS not measurable but normal right TBI and left measuring 0.43 consistent with PAD. Osteomyelitis probably the source of the bacteremia. Ortho consulted and appreciate theri input. Continue IV abx. Add PT/OT. (4) Necrotic toes: Code(s): I96 - Gangrene, not elsewhere classified Status: Acute Assessment and Plan: As above (5) Hypotension: Qualifiers: Hypotension type: other hypotension type Qualified Code(s): I95.89 - Other hypotension Code(s): I95.9 - Hypotension, unspecified Status: Acute Assessment and Plan: Patient's blood pressure was soft on admission related to the sepsis (and/or cardiogenic) and dropped to 74/60 felt related Lasix. Blood pressure is still soft at times but more stable. Medications being adjusted and he appears to be tolerating this well. Monitor closely with the addition of Lasix (6) Elevated liver function tests: Code(s): R94.5 - Abnormal results of liver function studies Status: Acute Assessment and Plan: Elevated liver enzymes noted. Probably hepatic congestion from his uncontrolled heart failure. We stopped Lipitor. He did have a reactive HCV antibody screen but HCV RNA levels were negative. Right upper quadrant ultrasound with gallbladder wall thickening secondary to interstitial edema moderate size right pleural effusion and small volume of ascites liver with no focal lesion. Levels are improved. Continue to monitor liver enzymes (7) Elevated troponin: Code(s): R77.8 - Other specified abnormalities of plasma proteins Status: Acute Assessment and Plan: Troponin elevated on admission and peaked at 0.28. EKG showing paced rhythm. Echocardiogram as mentioned below. Suspect elevated troponin related to the sepsis, CHF and hypotension. Appreciate Cardiology input. Continue aspirin, Coreg. Other medication adjustments per Cardiology. (8) Lactic acidosis: Code(s): E87.2 - Acidosis Status: Acute Assessment and
[2021-05-19 16:29] LABS: Glucose Point of Care 175 mg/dl (65-105)
[2021-05-19] MEDS: ENOXAPARIN 40 MG/0.4 ML SYRINGE SUB-Q (17:26)
[2021-05-19] MEDS: INSULIN GLARGINE (*BKC) 100 UNITS/ML 16 UNITS SUB-Q (20:44)
[2021-05-19 22:46] LABS: Glucose Point of Care 220 mg/dl (65-105)
[2021-05-20] VITALS (9 sets, daily range): BP systolic 98–114; BP diastolic 53–66; PULSE 70–81; RESP 16–18; TEMP 36.3–37.1; O2SAT 95–99
[2021-05-20] MEDS: ceFAZolin 2 GM/D5W 50 ML 2 GM/50 ML BAG IVPB ×3 (02:14→17:10)
[2021-05-20 05:40] LABS: Hemoglobin 11.8 g/dL (14.0-18.0); Mean Corpuscular HGB Conc 31.9 g/dl (32-36); Mean Corpuscular Hemoglobin 27.4 pg (26-34); Platelet Count Result 314 k/mm3 (150-375); Red Cell Distribution Width 19.3 % (11.5-14.5); White Blood Count 7.6 K/mm3 (4.5-10.0)
[2021-05-20 05:52] LABS: Alanine Aminotransferase 50 U/L (4-50); Albumin Level 2.7 g/dL (3.5-5.1); Alkaline Phosphatase 725 U/L (38-126); Anion Gap 1 mmol/L (8-16); Aspartate Amino Transferase 118 U/L (17-59); Bilirubin,Total 1.5 mg/dL (0.2-1.3); Blood Urea Nitrogen 12 mg/dL (9-20); Calcium 7.9 mg/dL (8.4-10.2); Carbon Dioxide 32 mmol/L (22-30); Chloride 100 mmol/L (98-107); Estimated CRCL calculation 90 ml/min; Estimated Glomerular Filt Rate > 60; Glucose 129 mg/dL (65-110); Potassium 4.1 mmol/L (3.4-5.0); Sodium 133 mmol/L (137-145)
[2021-05-20 07:54] LABS: Glucose Point of Care 116 mg/dl (65-105)
--- NOTE | 2021-05-20 08:12 | PM.PNCARD ---
Progress Note: A&P Assessment and Plan (1) Sepsis: Code(s): A41.9 - Sepsis, unspecified organism Status: Acute Assessment and Plan: Patient presented with shortness of breath found to have bilateral infiltrates consistent pneumonia and gram positive blood cultures. He remains on IV abx. Feeling better in this regard. Leukocytosis has resolved. Afebrile. Managed by primary service. (2) Acute on chronic systolic HF (heart failure): Code(s): I50.23 - Acute on chronic systolic (congestive) heart failure Status: Acute Assessment and Plan: Improving. His furosemide has been resumed at this point and his kidney function remains stable today. Continue medical therapy with Entresto, spironolactone, carvedilol. Hopefully we will be able to titrate these to target doses as an outpatient. (3) NICM (nonischemic cardiomyopathy): Code(s): I42.8 - Other cardiomyopathies Status: Acute Assessment and Plan: As above, severe LV dysfunction EF 15-20%, noncompliant with follow-up an outpatient, biventricular ICD. Optimize medical therapy. Outpatient follow-up upon discharge. (4) Pneumonia: Code(s): J18.9 - Pneumonia, unspecified organism Status: Acute Assessment and Plan: Per primary service as above. Continue IV antibiotics, supportive care. (5) Hypotension: Qualifiers: Hypotension type: other hypotension type Qualified Code(s): I95.89 - Other hypotension Code(s): I95.9 - Hypotension, unspecified Status: Acute Assessment and Plan: This is stable. He has been maintaining adequate blood pressure with resumption of furosemide in addition to Entresto, spironolactone, Coreg. Continue close monitoring. (6) Biventricular ICD (implantable cardioverter-defibrillator) in place: Code(s): Z95.810 - Presence of automatic (implantable) cardiac defibrillator Status: Acute Assessment and Plan: Paced rhythm on telemetry with several short runs of NSVT. Asymptomatic. Check magnesium, increase coreg to 6.25mg with holding parameters. Additional Plan Subjective Date/time seen: 05/20/21 08:12 Feels significantly better today. Appetite improving, noticing less swelling in his legs. He has no cardiovascular complaints today. Review of Systems Review of Systems: All systems reviewed & are unremarkable except as noted in HPI and below Constitutional: Constitutional: Reports as per HPI, Reports fatigue and Reports weakness Eyes: Eyes: Reports as per HPI and Reports no additional eye complaints ENT: Reports system reviewed and no additional complaints, except as documented and Reports as per HPI Cardiovascular: Cardiovascular: Reports as per HPI, Denies chest pain, Reports leg edema, Denies palpitations and Reports dyspnea on exertion Respiratory: Respiratory: Reports as per HPI, Reports cough and Reports dyspnea on exertion Gastrointestinal: Gastrointestinal: Reports as per HPI, Reports no additional gastrointestinal complaints and Denies abdominal pain Genitourinary: Genitourinary: Reports as per HPI Musculoskeletal: Musculoskeletal: Reports no additional musculoskeletal complaints and Reports as per HPI Integumentary/Breasts: Skin/Breast: Reports system reviewed and no additional complaints, except as docu and Reports as per HPI Neurologic: Reports system reviewed and no additional complaints, except as documented, Reports as per HPI and Reports weakness Psychiatric: Psychiatric: Reports as per HPI Endocrine: Endocrine: Reports no additional endocrine complaints, Reports as per HPI, Reports fatigue and Denies palpitations Hematologic/Lymphatic: Hematologic/Lymphatic: Reports no additional hematologic/lymphatic complaints and Reports as per HPI Allergic/Immunologic: Allergic/Immunologic: Reports no additional allergic/immunologic complaints and Reports as per HPI Exam Const: General: comfortable and no acut
[2021-05-20 08:29] LABS: Magnesium 2.1 mg/dL (1.6-2.3)
[2021-05-20] MEDS: carvediloL 3.125 MG TABLET PO (08:34)
[2021-05-20] MEDS: ASPIRIN 81 MG ENTERIC TABLET PO (08:34)
[2021-05-20] MEDS: MAGNESIUM OXIDE 400 MG TABLET PO ×2 (08:35→17:10)
[2021-05-20] MEDS: COLLAGENASE OINT 30 GM TUBE 1 APPLIC TOPICAL (08:35)
[2021-05-20] MEDS: EUCERIN CREAM 120 GM JAR 1 APPLIC TOPICAL (08:35)
[2021-05-20] MEDS: SACUBITRIL/VALSARTAN 12-13 MG TABLET 1 TAB PO ×2 (08:35→20:36)
[2021-05-20] MEDS: FUROSEMIDE 40 MG TABLET PO ×2 (08:35→17:09)
[2021-05-20] MEDS: SPIRONOLACTONE 25 MG TABLET PO (08:35)
[2021-05-20] MEDS: LIDOCAINE HCL 1% PF INJ 5 ML VIAL INFILTRATE (09:15)
--- NOTE | 2021-05-20 09:35 | PM.IMPN ---
Progress Note: A&P Assessment and Plan (1) Sepsis: Code(s): A41.9 - Sepsis, unspecified organism Status: Acute Assessment and Plan: Patient presents with severe sepsis and septicemia with tachycardia, leukocytosis, hypotension and elevated lactic acid. Blood cultures 05/13 growing MSSA from both bottles. Sources probably osteo, skin +/- pneumonia given chest x-ray findings. Treated with cefepime and vancomycin but changed to Ancef once sensitivities known. Repeat blood cultures 05/15 still positive for MSSA. TTE was negative for any vegetation. BCx 05/18 NGTD. Will need usp IV abx for at least 6 weeks. PICC line placement toay. Arrange for SNF placement. (2) Pneumonia: Code(s): J18.9 - Pneumonia, unspecified organism Status: Acute Assessment and Plan: On admission, CXR showed bilateral lower lobe pulmonary infiltrates. COVID is negative. Blood cultures are positive for MSSA. He remains on room air. Antibiotics changed to Ancef. No chest pain to suggest he has a parapneumonic effusion and felt more likely related to his CHF. Repeat CXR this morning improved diffuse lung disease c/w pulmonary edema and decreased effusions. Can not exclude PNA. Continue current treamtne plan. (3) Osteomyelitis: Qualifiers: Osteomyelitis type: other acute Osteomyelitis location: foot Laterality: right Qualified Code(s): M86.171 - Other acute osteomyelitis, right ankle and foot Code(s): M86.9 - Osteomyelitis, unspecified Status: Acute Assessment and Plan: Left 1st/2nd toe partially necrotic. Left foot xray showing acute osteomyelitis involving second distal phalanx with pathologic fracture and chronic-appearing erosions and deformities involving all of the rays, likely chronic osteomyelitis. 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 Arterial doppler showing THOMAS not measurable but normal right TBI and left measuring 0.43 consistent with PAD. Will need further workup for PAD as outpatient. Osteomyelitis probably the source of the bacteremia. Ortho consulted and appreciate their input. Continue IV abx. PT/OT. (4) Necrotic toes: Code(s): I96 - Gangrene, not elsewhere classified Status: Acute Assessment and Plan: As above (5) Hypotension: Qualifiers: Hypotension type: other hypotension type Qualified Code(s): I95.89 - Other hypotension Code(s): I95.9 - Hypotension, unspecified Status: Acute Assessment and Plan: Patient's blood pressure was soft on admission related to the sepsis (and/or cardiogenic) and dropped to 74/60 felt related Lasix. Blood pressure was still soft at times but more stable. Medications being adjusted and he appears to be tolerating this well. Continue to monitor (6) Elevated liver function tests: Code(s): R94.5 - Abnormal results of liver function studies Status: Acute Assessment and Plan: Elevated liver enzymes noted. He did have a reactive HCV antibody screen but HCV RNA levels were negative. Right upper quadrant ultrasound showing gallbladder wall thickening secondary to interstitial edema, moderate size right pleural effusion and small volume of ascites. Liver with no focal lesion. Probably hepatic congestion from his uncontrolled heart failure. We stopped Lipitor. AST trending down, ALT normal now but AP higher today for unclear reasons. Continue to monitor liver enzymes. Resume Lipitor at discharge. (7) Elevated troponin: Code(s): R77.8 - Other specified abnormalities of plasma proteins Status: Acute Assessment and Plan: Troponin elevated on admission and peaked at 0.28. EKG showing paced rhythm. Echocardiogram as mentioned below. Suspect elevated troponin related to the sepsis, CHF and/or hypo
[2021-05-20] MEDS: EMPAGLIFLOZIN 10 MG TABLET PO (10:59)
[2021-05-20 11:36] LABS: Glucose Point of Care 185 mg/dl (65-105)
[2021-05-20] MEDS: CENTRAL LINE FLUSH 10 ML IV PUSH ×2 (14:52→20:37)
[2021-05-20 16:21] LABS: Glucose Point of Care 207 mg/dl (65-105)
[2021-05-20] MEDS: INSULIN ASPART (*BKC) 100 UNITS/ML SUB-Q (17:09)
[2021-05-20] MEDS: ENOXAPARIN 40 MG/0.4 ML SYRINGE SUB-Q (17:10)
[2021-05-20] MEDS: INSULIN GLARGINE (*BKC) 100 UNITS/ML 16 UNITS SUB-Q (20:36)
[2021-05-20 23:33] LABS: Glucose Point of Care 132 mg/dl (65-105)
[2021-05-21] VITALS (8 sets, daily range): BP systolic 108–136; BP diastolic 66–82; PULSE 75–88; RESP 16–97; TEMP 36.1–36.5; O2SAT 96–100
[2021-05-21] MEDS: ceFAZolin 2 GM/D5W 50 ML 2 GM/50 ML BAG IVPB ×3 (01:50→17:13)
--- NOTE | 2021-05-21 03:04 | PCDIET ---
Pt called w/ c/o hypoglycemia, BG 48 when checked. Pt was given apple juice at this time. Pt BG 132 at 2031 prior to 16u Lantus admin last night and was given a 3 packs of gram crackers with 2 cups of peanut butter at that time as well.
[2021-05-21 03:18] LABS: Glucose Point of Care 48 mg/dl (65-105)
[2021-05-21] MEDS: DEXTROSE 50% 25 GM/50 ML SYRINGE IV PUSH (03:25)
[2021-05-21 03:51] LABS: Glucose Point of Care 47 mg/dl (65-105)
[2021-05-21 03:51] LABS: Glucose Point of Care 91 mg/dl (65-105)
[2021-05-21] MEDS: CENTRAL LINE FLUSH 10 ML IV PUSH ×3 (05:15→20:49)
[2021-05-21 05:26] LABS: Alanine Aminotransferase 37 U/L (4-50); Albumin Level 2.7 g/dL (3.5-5.1); Alkaline Phosphatase 681 U/L (38-126); Anion Gap -1 mmol/L (8-16); Aspartate Amino Transferase 123 U/L (17-59); Bilirubin,Total 1.6 mg/dL (0.2-1.3); Blood Urea Nitrogen 15 mg/dL (9-20); Calcium 7.6 mg/dL (8.4-10.2); Carbon Dioxide 34 mmol/L (22-30); Chloride 100 mmol/L (98-107); Estimated CRCL calculation 90 ml/min; Estimated Glomerular Filt Rate > 60; Glucose 140 mg/dL (65-110); Potassium 5.1 mmol/L (3.4-5.0); Sodium 133 mmol/L (137-145)
[2021-05-21 07:55] LABS: Glucose Point of Care 128 mg/dl (65-105)
[2021-05-21] MEDS: ASPIRIN 81 MG ENTERIC TABLET PO (08:12)
[2021-05-21] MEDS: carvediloL 6.25 MG TABLET PO ×2 (08:12→20:49)
[2021-05-21] MEDS: EUCERIN CREAM 120 GM JAR 1 APPLIC TOPICAL (08:13)
[2021-05-21] MEDS: SACUBITRIL/VALSARTAN 12-13 MG TABLET 1 TAB PO ×2 (08:13→20:49)
[2021-05-21] MEDS: EMPAGLIFLOZIN 10 MG TABLET PO (08:13)
[2021-05-21] MEDS: FUROSEMIDE 40 MG TABLET PO ×2 (08:13→17:13)
[2021-05-21] MEDS: SPIRONOLACTONE 25 MG TABLET PO (08:13)
[2021-05-21] MEDS: COLLAGENASE OINT 30 GM TUBE 1 APPLIC TOPICAL (08:13)
[2021-05-21] MEDS: MAGNESIUM OXIDE 400 MG TABLET PO ×2 (08:13→17:13)
--- NOTE | 2021-05-21 08:55 | PM.PNCARD ---
Progress Note: A&P Assessment and Plan (1) Sepsis: Code(s): A41.9 - Sepsis, unspecified organism Status: Acute Assessment and Plan: Patient presented with shortness of breath found to have bilateral infiltrates consistent pneumonia and gram positive blood cultures. He remains on IV abx. Feeling better in this regard. Leukocytosis has resolved. Afebrile. Managed by primary service. (2) Acute on chronic systolic HF (heart failure): Code(s): I50.23 - Acute on chronic systolic (congestive) heart failure Status: Acute Assessment and Plan: Improving. His furosemide has been resumed at this point and his kidney function remains stable today. Continue medical therapy with Entresto, spironolactone, carvedilol. Hopefully we will be able to titrate these to target doses as an outpatient. (3) NICM (nonischemic cardiomyopathy): Code(s): I42.8 - Other cardiomyopathies Status: Acute Assessment and Plan: As above, severe LV dysfunction EF 15-20%, noncompliant with follow-up an outpatient, biventricular ICD. Optimize medical therapy. Outpatient follow-up upon discharge. (4) Pneumonia: Code(s): J18.9 - Pneumonia, unspecified organism Status: Acute Assessment and Plan: Per primary service as above. Continue IV antibiotics, supportive care. (5) Hypotension: Qualifiers: Hypotension type: other hypotension type Qualified Code(s): I95.89 - Other hypotension Code(s): I95.9 - Hypotension, unspecified Status: Acute Assessment and Plan: This is stable. He has been maintaining adequate blood pressure with resumption of furosemide in addition to Entresto, spironolactone, Coreg. Continue close monitoring. (6) Biventricular ICD (implantable cardioverter-defibrillator) in place: Code(s): Z95.810 - Presence of automatic (implantable) cardiac defibrillator Status: Acute Assessment and Plan: Paced rhythm on telemetry with occasional short runs NSVT. ICD in place. Electrolytes WNL. on BB. Additional Plan Subjective Date/time seen: 05/21/21 08:55 cardiology follow-up for CHF Continues to improve. Denies any shortness of breath, feels that his swelling has significantly improved. He does not have any complaints today. Appropriate for discharge today from a cardiac perspective. Review of Systems Review of Systems: All systems reviewed & are unremarkable except as noted in HPI and below Constitutional: Constitutional: Reports as per HPI, Reports fatigue and Reports weakness Eyes: Eyes: Reports as per HPI and Reports no additional eye complaints ENT: Reports system reviewed and no additional complaints, except as documented and Reports as per HPI Cardiovascular: Cardiovascular: Reports as per HPI, Denies chest pain, Reports leg edema, Denies palpitations and Reports dyspnea on exertion Respiratory: Respiratory: Reports as per HPI, Reports cough and Reports dyspnea on exertion Gastrointestinal: Gastrointestinal: Reports as per HPI, Reports no additional gastrointestinal complaints and Denies abdominal pain Genitourinary: Genitourinary: Reports as per HPI Musculoskeletal: Musculoskeletal: Reports no additional musculoskeletal complaints and Reports as per HPI Integumentary/Breasts: Skin/Breast: Reports system reviewed and no additional complaints, except as docu and Reports as per HPI Neurologic: Reports system reviewed and no additional complaints, except as documented, Reports as per HPI and Reports weakness Psychiatric: Psychiatric: Reports as per HPI Endocrine: Endocrine: Reports no additional endocrine complaints, Reports as per HPI, Reports fatigue and Denies palpitations Hematologic/Lymphatic: Hematologic/Lymphatic: Reports no additional hematologic/lymphatic complaints and Reports as per HPI Allergic/Immunologic: Allergic/Immunologic: Reports no additional allergic/immunologic complaints and Reports as pe
[2021-05-21 10:11] LABS: Potassium 4.6 mmol/L (3.4-5.0)
[2021-05-21 11:49] LABS: Glucose Point of Care 215 mg/dl (65-105)
[2021-05-21] MEDS: INSULIN ASPART (*BKC) 100 UNITS/ML SUB-Q (12:49)
--- NOTE | 2021-05-21 14:42 | PCNWS ---
Weekly nutritional screen. Patient is tolerating current diet with adequate intake. No weight loss reported. No nutritional needs at this time.
[2021-05-21 15:18] LABS: Soluble Transferrin Receptor 1.77 mg/L (0.76-1.76)
--- NOTE | 2021-05-21 15:21 | PM.IMPN ---
Progress Note: A&P Assessment and Plan (1) Sepsis: Code(s): A41.9 - Sepsis, unspecified organism Status: Acute Assessment and Plan: Patient presents with severe sepsis and septicemia with tachycardia, leukocytosis, hypotension and elevated lactic acid. Blood cultures 05/13 growing MSSA from both bottles. Sources probably osteo, skin +/- pneumonia given chest x-ray findings. Treated with cefepime and vancomycin but changed to Ancef once sensitivities known. Repeat blood cultures 05/15 still positive for MSSA. TTE was negative for any vegetation. BCx 05/18 NGTD. Will need halfway IV abx for at least 6 weeks. PICC line placement. Waiting for SNF placement. (2) Pneumonia: Code(s): J18.9 - Pneumonia, unspecified organism Status: Acute Assessment and Plan: On admission, CXR showed bilateral lower lobe pulmonary infiltrates. COVID is negative. Blood cultures are positive for MSSA. He remains on room air. Antibiotics changed to Ancef. No chest pain to suggest he has a parapneumonic effusion and felt more likely related to his CHF. Repeat CXR 05/20 showing improved diffuse lung disease c/w pulmonary edema and decreased effusions. Can not exclude PNA. Continue current treatment plan. (3) Osteomyelitis: Qualifiers: Laterality: right Osteomyelitis location: foot Osteomyelitis type: other acute Qualified Code(s): M86.171 - Other acute osteomyelitis, right ankle and foot Code(s): M86.9 - Osteomyelitis, unspecified Status: Acute Assessment and Plan: Left 1st/2nd toe partially necrotic. Left foot xray showing acute osteomyelitis involving second distal phalanx with pathologic fracture and chronic-appearing erosions and deformities involving all of the rays, likely chronic osteomyelitis. 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 Arterial doppler showing THOMAS not measurable but normal right TBI and left measuring 0.43 consistent with PAD. Will need further workup for PAD as outpatient. Osteomyelitis probably the source of the bacteremia. Ortho consulted and appreciate their input. Continue IV abx. Continue PT/OT. (4) Necrotic toes: Code(s): I96 - Gangrene, not elsewhere classified Status: Acute Assessment and Plan: As above (5) Hypotension: Qualifiers: Hypotension type: other hypotension type Qualified Code(s): I95.89 - Other hypotension Code(s): I95.9 - Hypotension, unspecified Status: Acute Assessment and Plan: Patient's blood pressure was soft on admission related to the sepsis (and/or cardiogenic) and dropped to 74/60 felt related Lasix. Since admission, blood pressure was still soft at times but more stable. Medications being adjusted and he appears to be tolerating this well. Continue to monitor (6) Elevated liver function tests: Code(s): R94.5 - Abnormal results of liver function studies Status: Acute Assessment and Plan: Elevated liver enzymes noted. He did have a reactive HCV antibody screen but HCV RNA levels were negative. Right upper quadrant ultrasound showing gallbladder wall thickening secondary to interstitial edema, moderate size right pleural effusion and small volume of ascites. Liver with no focal lesion. Probably hepatic congestion from his uncontrolled heart failure. We stopped Lipitor. AST trended down, ALT normal now but AP higher today for unclear reasons. Continue to monitor liver enzymes. (7) Elevated troponin: Code(s): R77.8 - Other specified abnormalities of plasma proteins Status: Acute Assessment and Plan: Troponin elevated on admission and peaked at 0.28. EKG showing paced rhythm. Echocardiogram as mentioned below. Suspect elevated troponin related to the sepsis, CHF and/or hypotension.
[2021-05-21 16:51] LABS: Glucose Point of Care 171 mg/dl (65-105)
[2021-05-21] MEDS: ENOXAPARIN 40 MG/0.4 ML SYRINGE SUB-Q (17:13)
[2021-05-21] MEDS: INSULIN GLARGINE (*BKC) 100 UNITS/ML 10 UNITS SUB-Q (20:48)
[2021-05-21 20:59] LABS: Glucose Point of Care 177 mg/dl (65-105)
[2021-05-21 23:26] LABS: Glucose Point of Care 165 mg/dl (65-105)
[2021-05-22] VITALS (11 sets, daily range): BP systolic 98–112; BP diastolic 54–67; PULSE 68–83; RESP 16–20; TEMP 36.1–37.1; O2SAT 94–100
[2021-05-22] MEDS: ceFAZolin 2 GM/D5W 50 ML 2 GM/50 ML BAG IVPB ×3 (01:40→16:59)
[2021-05-22] MEDS: CENTRAL LINE FLUSH 10 ML IV PUSH ×3 (05:07→19:57)
[2021-05-22 05:36] LABS: Alanine Aminotransferase 31 U/L (4-50); Albumin Level 2.8 g/dL (3.5-5.1); Alkaline Phosphatase 687 U/L (38-126); Anion Gap 1 mmol/L (8-16); Aspartate Amino Transferase 97 U/L (17-59); Bilirubin,Total 1.7 mg/dL (0.2-1.3); Blood Urea Nitrogen 16 mg/dL (9-20); Calcium 7.8 mg/dL (8.4-10.2); Carbon Dioxide 31 mmol/L (22-30); Chloride 100 mmol/L (98-107); Estimated CRCL calculation 103 ml/min; Estimated Glomerular Filt Rate > 60; Glucose 130 mg/dL (65-110); Potassium 5.3 mmol/L (3.4-5.0); Sodium 132 mmol/L (137-145)
[2021-05-22 07:45] LABS: Glucose Point of Care 130 mg/dl (65-105)
--- NOTE | 2021-05-22 08:48 | PM.PNCARD ---
Progress Note: A&P Assessment and Plan (1) Sepsis: Code(s): A41.9 - Sepsis, unspecified organism Status: Acute Assessment and Plan: Patient presented with shortness of breath found to have bilateral infiltrates consistent pneumonia and gram positive blood cultures. He remains on IV abx. Feeling better in this regard. Leukocytosis has resolved. Afebrile. Managed by primary service. (2) Acute on chronic systolic HF (heart failure): Code(s): I50.23 - Acute on chronic systolic (congestive) heart failure Status: Acute Assessment and Plan: Improving. His furosemide has been resumed at this point and his kidney function remains stable today. Continue medical therapy with Entresto,carvedilol, jardiance. Potassium trending up - 5.3 today. Will d/c spironolactone for now, posibly restart as outpatient. BMP in 2 weeks. Hopefully we will be able to titrate HF meds to target doses as an outpatient. (3) NICM (nonischemic cardiomyopathy): Code(s): I42.8 - Other cardiomyopathies Status: Acute Assessment and Plan: As above, severe LV dysfunction EF 15-20%, noncompliant with follow-up an outpatient, biventricular ICD. Optimize medical therapy. Outpatient follow-up upon discharge. (4) Pneumonia: Code(s): J18.9 - Pneumonia, unspecified organism Status: Acute Assessment and Plan: Per primary service as above. Continue IV antibiotics, supportive care. (5) Hypotension: Qualifiers: Hypotension type: other hypotension type Qualified Code(s): I95.89 - Other hypotension Code(s): I95.9 - Hypotension, unspecified Status: Acute Assessment and Plan: This is stable. He has been maintaining adequate blood pressure with resumption of furosemide in addition to Entresto, spironolactone, Coreg. Continue close monitoring. (6) Biventricular ICD (implantable cardioverter-defibrillator) in place: Code(s): Z95.810 - Presence of automatic (implantable) cardiac defibrillator Status: Acute Assessment and Plan: Paced rhythm on telemetry with occasional short runs NSVT. ICD in place. Electrolytes WNL. on BB. Additional Plan Subjective Date/time seen: 05/22/21 08:48 Cardiology follow up for CHF Continues to improve and feel better. Up in the chair this morning. Denies shortness of breath, chest pain, palpitations. Ready for discharge from a cardiac perspective. We will sign off for now. Please do not hesitate to contact us with any further questions regarding the care of this patient. Review of Systems Review of Systems: All systems reviewed & are unremarkable except as noted in HPI and below Constitutional: Constitutional: Reports as per HPI, Reports fatigue and Reports weakness Eyes: Eyes: Reports as per HPI and Reports no additional eye complaints ENT: Reports system reviewed and no additional complaints, except as documented and Reports as per HPI Cardiovascular: Cardiovascular: Reports as per HPI, Denies chest pain, Reports leg edema, Denies palpitations and Reports dyspnea on exertion Respiratory: Respiratory: Reports as per HPI, Reports cough and Reports dyspnea on exertion Gastrointestinal: Gastrointestinal: Reports as per HPI, Reports no additional gastrointestinal complaints and Denies abdominal pain Genitourinary: Genitourinary: Reports as per HPI Musculoskeletal: Musculoskeletal: Reports no additional musculoskeletal complaints and Reports as per HPI Integumentary/Breasts: Skin/Breast: Reports system reviewed and no additional complaints, except as docu and Reports as per HPI Neurologic: Reports system reviewed and no additional complaints, except as documented, Reports as per HPI and Reports weakness Psychiatric: Psychiatric: Reports as per HPI Endocrine: Endocrine: Reports no additional endocrine complaints, Reports as per HPI, Reports fatigue and Denies palpitations Hematologic/Lymphatic: Hematolo
[2021-05-22] MEDS: ASPIRIN 81 MG ENTERIC TABLET PO (09:13)
[2021-05-22] MEDS: COLLAGENASE OINT 30 GM TUBE 1 APPLIC TOPICAL (09:13)
[2021-05-22] MEDS: MAGNESIUM OXIDE 400 MG TABLET PO ×2 (09:13→16:32)
[2021-05-22] MEDS: EMPAGLIFLOZIN 10 MG TABLET PO (09:13)
[2021-05-22] MEDS: EUCERIN CREAM 120 GM JAR 1 APPLIC TOPICAL (09:14)
[2021-05-22] MEDS: SACUBITRIL/VALSARTAN 12-13 MG TABLET 1 TAB PO ×2 (09:25→19:57)
[2021-05-22] MEDS: FUROSEMIDE 40 MG TABLET PO ×2 (09:25→16:32)
[2021-05-22] MEDS: CENTRAL LINE FLUSH 20 ML IV PUSH (11:11)
[2021-05-22 11:56] LABS: Glucose Point of Care 228 mg/dl (65-105)
[2021-05-22] MEDS: INSULIN ASPART (*BKC) 100 UNITS/ML SUB-Q (12:00)
[2021-05-22 13:13] LABS: Potassium 4.9 mmol/L (3.4-5.0)
--- NOTE | 2021-05-22 14:16 | PM.IMPN ---
Progress Note: A&P Assessment and Plan (1) Sepsis: Code(s): A41.9 - Sepsis, unspecified organism Status: Acute Assessment and Plan: Patient presents with severe sepsis and septicemia with tachycardia, leukocytosis, hypotension and elevated lactic acid. Blood cultures 05/13 growing MSSA from both bottles. Sources probably osteo, skin +/- pneumonia given chest x-ray findings. Treated with cefepime and vancomycin but changed to Ancef once sensitivities known. Repeat blood cultures 05/15 still positive for MSSA. TTE was negative for any vegetation. BCx 05/18 NGTD. Will need long-term IV abx for at least 6 weeks. PICC line placement. Waiting for SNF placement. (2) Pneumonia: Code(s): J18.9 - Pneumonia, unspecified organism Status: Acute Assessment and Plan: On admission, CXR showed bilateral lower lobe pulmonary infiltrates. COVID is negative. Blood cultures are positive for MSSA. He remains on room air. Antibiotics changed to Ancef. No chest pain to suggest he has a parapneumonic effusion and felt more likely related to his CHF. Repeat CXR 05/20 showing improved diffuse lung disease c/w pulmonary edema and decreased effusions. Can not exclude PNA. He remains on room air. Continue current treatment plan. (3) Osteomyelitis: Qualifiers: Osteomyelitis type: other acute Osteomyelitis location: foot Laterality: right Qualified Code(s): M86.171 - Other acute osteomyelitis, right ankle and foot Code(s): M86.9 - Osteomyelitis, unspecified Status: Acute Assessment and Plan: Left 1st/2nd toe partially necrotic. Left foot xray showing acute osteomyelitis involving second distal phalanx with pathologic fracture and chronic-appearing erosions and deformities involving all of the rays, likely chronic osteomyelitis. 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 Arterial doppler showing THOMAS not measurable but normal right TBI and left measuring 0.43 consistent with PAD. Will need further workup for PAD as outpatient. Osteomyelitis probably the source of the bacteremia. Ortho consulted and appreciate their input. Continue IV abx. Continue PT/OT. (4) Necrotic toes: Code(s): I96 - Gangrene, not elsewhere classified Status: Acute Assessment and Plan: As above (5) Hypotension: Qualifiers: Hypotension type: other hypotension type Qualified Code(s): I95.89 - Other hypotension Code(s): I95.9 - Hypotension, unspecified Status: Acute Assessment and Plan: Patient's blood pressure was soft on admission related to the sepsis (and/or cardiogenic) and dropped to 74/60 felt related Lasix. Since admission, blood pressure was still soft at times but more stable. Medications being adjusted and he appears to be tolerating this well. Continue to monitor (6) Elevated liver function tests: Code(s): R94.5 - Abnormal results of liver function studies Status: Acute Assessment and Plan: Elevated liver enzymes noted. He did have a reactive HCV antibody screen but HCV RNA levels were negative. Right upper quadrant ultrasound showing gallbladder wall thickening secondary to interstitial edema, moderate size right pleural effusion and small volume of ascites. Liver with no focal lesion. Probably hepatic congestion from his uncontrolled heart failure. We stopped Lipitor. AST trended down, ALT normal now. Continue to monitor liver enzymes. (7) Elevated troponin: Code(s): R77.8 - Other specified abnormalities of plasma proteins Status: Acute Assessment and Plan: Troponin elevated on admission and peaked at 0.28. EKG showing paced rhythm. Echocardiogram as mentioned below. Suspect elevated troponin related to the sepsis, CHF and/or hypotension. Doubt ACS. Ap
[2021-05-22 16:11] LABS: Glucose Point of Care 168 mg/dl (65-105)
[2021-05-22] MEDS: ENOXAPARIN 40 MG/0.4 ML SYRINGE SUB-Q (16:59)
[2021-05-22] MEDS: carvediloL 6.25 MG TABLET PO (19:57)
[2021-05-22] MEDS: INSULIN GLARGINE (*BKC) 100 UNITS/ML 10 UNITS SUB-Q (19:57)
[2021-05-22 20:48] LABS: Glucose Point of Care 182 mg/dl (65-105)
[2021-05-23] VITALS (10 sets, daily range): BP systolic 93–118; BP diastolic 56–72; PULSE 58–92; RESP 16–18; TEMP 36.1–36.7; O2SAT 97–100
[2021-05-23] MEDS: ceFAZolin 2 GM/D5W 50 ML 2 GM/50 ML BAG IVPB ×3 (01:18→16:59)
[2021-05-23] MEDS: CENTRAL LINE FLUSH 20 ML IV PUSH (04:32)
[2021-05-23] MEDS: CENTRAL LINE FLUSH 10 ML IV PUSH ×3 (04:32→20:40)
[2021-05-23 08:10] LABS: Glucose Point of Care 78 mg/dl (65-105)
[2021-05-23] MEDS: MAGNESIUM OXIDE 400 MG TABLET PO ×2 (09:00→16:08)
[2021-05-23] MEDS: FUROSEMIDE 40 MG TABLET PO ×2 (09:00→16:08)
[2021-05-23] MEDS: SACUBITRIL/VALSARTAN 12-13 MG TABLET 1 TAB PO ×2 (09:00→20:40)
[2021-05-23] MEDS: ASPIRIN 81 MG ENTERIC TABLET PO (09:00)
[2021-05-23] MEDS: EMPAGLIFLOZIN 10 MG TABLET PO (09:00)
[2021-05-23] MEDS: carvediloL 6.25 MG TABLET PO ×2 (09:00→20:40)
[2021-05-23] MEDS: COLLAGENASE OINT 30 GM TUBE 1 APPLIC TOPICAL (09:01)
[2021-05-23] MEDS: EUCERIN CREAM 120 GM JAR 1 APPLIC TOPICAL (09:01)
[2021-05-23 09:19] LABS: Anion Gap 2 mmol/L (8-16); Blood Urea Nitrogen 19 mg/dL (9-20); Calcium 8.1 mg/dL (8.4-10.2); Carbon Dioxide 32 mmol/L (22-30); Chloride 99 mmol/L (98-107); Estimated CRCL calculation 103 ml/min; Estimated Glomerular Filt Rate > 60; Glucose 66 mg/dL (65-110); Potassium 4.2 mmol/L (3.4-5.0); Sodium 133 mmol/L (137-145)
--- NOTE | 2021-05-23 11:09 | PM.IMPN ---
Progress Note: A&P Assessment and Plan (1) Sepsis: Code(s): A41.9 - Sepsis, unspecified organism Status: Acute Assessment and Plan: Patient presents with severe sepsis and septicemia with tachycardia, leukocytosis, hypotension and elevated lactic acid. Blood cultures 05/13 growing MSSA from both bottles. Sources probably osteo, skin +/- pneumonia given chest x-ray findings. Treated with cefepime and vancomycin but changed to Ancef once sensitivities known. Repeat blood cultures 05/15 still positive for MSSA. TTE was negative for any vegetation. BCx 05/18 NGTD. Will need snf IV abx for at least 6 weeks. PICC line placement. Waiting for SNF placement. (2) Pneumonia: Code(s): J18.9 - Pneumonia, unspecified organism Status: Acute Assessment and Plan: On admission, CXR showed bilateral lower lobe pulmonary infiltrates. COVID is negative. Blood cultures are positive for MSSA. He remains on room air. Antibiotics changed to Ancef. No chest pain to suggest he has a parapneumonic effusion and felt more likely related to his CHF. Repeat CXR 05/20 showing improved diffuse lung disease c/w pulmonary edema and decreased effusions. Can not exclude PNA. Continue current treatment plan. (3) Osteomyelitis: Qualifiers: Osteomyelitis type: other acute Osteomyelitis location: foot Laterality: right Qualified Code(s): M86.171 - Other acute osteomyelitis, right ankle and foot Code(s): M86.9 - Osteomyelitis, unspecified Status: Acute Assessment and Plan: Left 1st/2nd toe partially necrotic. Left foot xray showing acute osteomyelitis involving second distal phalanx with pathologic fracture and chronic-appearing erosions and deformities involving all of the rays, likely chronic osteomyelitis. 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 Arterial doppler showing THOMAS not measurable but normal right TBI and left measuring 0.43 consistent with PAD. Will need further workup for PAD as outpatient. Osteomyelitis probably the source of the bacteremia. Ortho consulted and appreciate their input. Continue IV abx. Continue PT/OT. (4) Necrotic toes: Code(s): I96 - Gangrene, not elsewhere classified Status: Acute Assessment and Plan: As above (5) Hypotension: Qualifiers: Hypotension type: other hypotension type Qualified Code(s): I95.89 - Other hypotension Code(s): I95.9 - Hypotension, unspecified Status: Acute Assessment and Plan: Patient's blood pressure was soft on admission related to the sepsis (and/or cardiogenic) and dropped to 74/60 felt related Lasix. Since admission, blood pressure was still soft at times but more stable. BP reviewed and stable 2/ (6) Elevated liver function tests: Code(s): R94.5 - Abnormal results of liver function studies Status: Acute Assessment and Plan: Elevated liver enzymes noted. He did have a reactive HCV antibody screen but HCV RNA levels were negative. Right upper quadrant ultrasound showing gallbladder wall thickening secondary to interstitial edema, moderate size right pleural effusion and small volume of ascites. Liver with no focal lesion. Probably hepatic congestion from his uncontrolled heart failure. Atorvastatin d/c'd until LFT's normalize Improving. Monitor. (7) Elevated troponin: Code(s): R77.8 - Other specified abnormalities of plasma proteins Status: Acute Assessment and Plan: Troponin elevated on admission and peaked at 0.28. EKG showing paced rhythm. Echocardiogram as mentioned below. Suspect elevated troponin related to the sepsis, CHF and/or hypotension. Doubt ACS. Appreciate Cardiology input. Continue current treatment plan. (8) Lactic acidosis: Code(s): E87.2
[2021-05-23 11:50] LABS: Glucose Point of Care 188 mg/dl (65-105)
[2021-05-23 16:26] LABS: Glucose Point of Care 176 mg/dl (65-105)
[2021-05-23] MEDS: ENOXAPARIN 40 MG/0.4 ML SYRINGE SUB-Q (17:00)
[2021-05-23] MEDS: INSULIN GLARGINE (*BKC) 100 UNITS/ML 10 UNITS SUB-Q (20:41)
[2021-05-23 20:49] LABS: Glucose Point of Care 214 mg/dl (65-105)
[2021-05-24] VITALS (8 sets, daily range): BP systolic 100–118; BP diastolic 55–65; PULSE 56–84; RESP 16–20; TEMP 36.1–36.8; O2SAT 92–100
[2021-05-24] MEDS: ceFAZolin 2 GM/D5W 50 ML 2 GM/50 ML BAG IVPB ×3 (01:50→17:10)
[2021-05-24] MEDS: CENTRAL LINE FLUSH 10 ML IV PUSH ×3 (05:50→21:20)
[2021-05-24 06:11] LABS: Hematocrit 35.2 % (42.0-52.0); Hemoglobin 10.9 g/dL (14.0-18.0); Mean Corpuscular Hemoglobin 27.3 pg (26-34); Mean Corpuscular Volume 88.2 fl (80-100); Platelet Count Result 326 k/mm3 (150-375); Red Blood Count 3.99 M/mm3 (4.6-6.20); Red Cell Distribution Width 19.9 % (11.5-14.5); White Blood Count 8.9 K/mm3 (4.5-10.0)
[2021-05-24 06:29] LABS: Alanine Aminotransferase 28 U/L (4-50); Alkaline Phosphatase 752 U/L (38-126); Anion Gap 1 mmol/L (8-16); Aspartate Amino Transferase 96 U/L (17-59); Bilirubin,Total 1.4 mg/dL (0.2-1.3); Blood Urea Nitrogen 19 mg/dL (9-20); Calcium 8.1 mg/dL (8.4-10.2); Carbon Dioxide 33 mmol/L (22-30); Chloride 100 mmol/L (98-107); Estimated CRCL calculation 103 ml/min; Estimated Glomerular Filt Rate > 60; Glucose 147 mg/dL (65-110); Potassium 4.3 mmol/L (3.4-5.0); Sodium 134 mmol/L (137-145)
[2021-05-24 08:08] LABS: Glucose Point of Care 121 mg/dl (65-105)
[2021-05-24] MEDS: SACUBITRIL/VALSARTAN 12-13 MG TABLET 1 TAB PO ×2 (08:26→21:20)
[2021-05-24] MEDS: carvediloL 6.25 MG TABLET PO (08:26)
[2021-05-24] MEDS: ASPIRIN 81 MG ENTERIC TABLET PO (08:26)
[2021-05-24] MEDS: FUROSEMIDE 40 MG TABLET PO ×2 (08:26→16:51)
[2021-05-24] MEDS: EMPAGLIFLOZIN 10 MG TABLET PO (08:26)
[2021-05-24] MEDS: MAGNESIUM OXIDE 400 MG TABLET PO ×2 (08:26→16:51)
--- NOTE | 2021-05-24 10:53 | PM.IMPN ---
Progress Note: A&P Assessment and Plan (1) Sepsis: Code(s): A41.9 - Sepsis, unspecified organism Status: Acute Assessment and Plan: Patient presents with severe sepsis and septicemia with tachycardia, leukocytosis, hypotension and elevated lactic acid. Blood cultures 05/13 growing MSSA from both bottles. Sources probably osteo, skin +/- pneumonia given chest x-ray findings. Treated with cefepime and vancomycin but changed to Ancef once sensitivities known. Repeat blood cultures 05/15 still positive for MSSA. TTE was negative for any vegetation. BCx 05/18 NGTD. Will need fdc IV abx for at least 6 weeks. PICC line placement. Waiting for SNF placement. (2) Pneumonia: Code(s): J18.9 - Pneumonia, unspecified organism Status: Acute Assessment and Plan: On admission, CXR showed bilateral lower lobe pulmonary infiltrates. COVID is negative. Blood cultures are positive for MSSA. He remains on room air. Antibiotics changed to Ancef. No chest pain to suggest he has a parapneumonic effusion and felt more likely related to his CHF. Repeat CXR 05/20 showing improved diffuse lung disease c/w pulmonary edema and decreased effusions. Can not exclude PNA. Continue current treatment plan. (3) Osteomyelitis: Qualifiers: Osteomyelitis type: other acute Osteomyelitis location: foot Laterality: right Qualified Code(s): M86.171 - Other acute osteomyelitis, right ankle and foot Code(s): M86.9 - Osteomyelitis, unspecified Status: Acute Assessment and Plan: Left 1st/2nd toe partially necrotic. Left foot xray showing acute osteomyelitis involving second distal phalanx with pathologic fracture and chronic-appearing erosions and deformities involving all of the rays, likely chronic osteomyelitis. 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 Arterial doppler showing THOMAS not measurable but normal right TBI and left measuring 0.43 consistent with PAD. Will need further workup for PAD as outpatient. Osteomyelitis probably the source of the bacteremia. Ortho consulted and appreciate their input. Continue IV abx. Continue PT/OT. (4) Necrotic toes: Code(s): I96 - Gangrene, not elsewhere classified Status: Acute Assessment and Plan: As above (5) Hypotension: Qualifiers: Hypotension type: other hypotension type Qualified Code(s): I95.89 - Other hypotension Code(s): I95.9 - Hypotension, unspecified Status: Acute Assessment and Plan: Patient's blood pressure was soft on admission related to the sepsis (and/or cardiogenic) and dropped to 74/60 felt related Lasix. Since admission, blood pressure was still soft at times but more stable. BP reviewed and stable 2/ (6) Elevated liver function tests: Code(s): R94.5 - Abnormal results of liver function studies Status: Acute Assessment and Plan: Elevated liver enzymes noted. He did have a reactive HCV antibody screen but HCV RNA levels were negative. Right upper quadrant ultrasound showing gallbladder wall thickening secondary to interstitial edema, moderate size right pleural effusion and small volume of ascites. Liver with no focal lesion. Probably hepatic congestion from his uncontrolled heart failure. Atorvastatin d/c'd until transaminases normalize. Bili 1.4, AST 96, ALT 28 (likely reactive due to sepsis), AP 752 (likely due to osteomyelitis) (7) Elevated troponin: Code(s): R77.8 - Other specified abnormalities of plasma proteins Status: Acute Assessment and Plan: Troponin elevated on admission and peaked at 0.28. EKG showing paced rhythm. Echocardiogram as mentioned below. Suspect elevated troponin related to the sepsis, CHF and/or hypotension. No ACS (8) Lactic acidosis: Co
[2021-05-24 12:20] LABS: Glucose Point of Care 154 mg/dl (65-105)
[2021-05-24] MEDS: EUCERIN CREAM 120 GM JAR 1 APPLIC TOPICAL (12:27)
[2021-05-24] MEDS: COLLAGENASE OINT 30 GM TUBE 1 APPLIC TOPICAL (12:27)
[2021-05-24 16:57] LABS: Glucose Point of Care 159 mg/dl (65-105)
[2021-05-24] MEDS: ENOXAPARIN 40 MG/0.4 ML SYRINGE SUB-Q (17:11)
[2021-05-24] MEDS: INSULIN GLARGINE (*BKC) 100 UNITS/ML 10 UNITS SUB-Q (21:19)
[2021-05-24 21:59] LABS: Glucose Point of Care 242 mg/dl (65-105)
[2021-05-25] VITALS (7 sets, daily range): BP systolic 102–109; BP diastolic 60–69; PULSE 69–79; RESP 20–21; TEMP 36.1–36.6; O2SAT 99–100
[2021-05-25] MEDS: ceFAZolin 2 GM/D5W 50 ML 2 GM/50 ML BAG IVPB ×3 (02:31→17:20)
[2021-05-25 03:37] LABS: Estimated CRCL calculation 103 ml/min; Estimated Glomerular Filt Rate > 60
[2021-05-25] MEDS: CENTRAL LINE FLUSH 10 ML IV PUSH ×3 (06:39→21:03)
[2021-05-25 07:55] LABS: Glucose Point of Care 102 mg/dl (65-105)
[2021-05-25] MEDS: SACUBITRIL/VALSARTAN 12-13 MG TABLET 1 TAB PO ×2 (08:37→21:03)
[2021-05-25] MEDS: FUROSEMIDE 40 MG TABLET PO ×2 (08:37→17:09)
[2021-05-25] MEDS: MAGNESIUM OXIDE 400 MG TABLET PO ×2 (08:37→17:09)
[2021-05-25] MEDS: carvediloL 6.25 MG TABLET PO ×2 (08:38→21:01)
[2021-05-25] MEDS: EMPAGLIFLOZIN 10 MG TABLET PO (08:38)
[2021-05-25] MEDS: ASPIRIN 81 MG ENTERIC TABLET PO (08:39)
[2021-05-25] MEDS: EUCERIN CREAM 120 GM JAR 1 APPLIC TOPICAL (08:39)
[2021-05-25] MEDS: COLLAGENASE OINT 30 GM TUBE 1 APPLIC TOPICAL (08:39)
[2021-05-25 11:52] LABS: Glucose Point of Care 180 mg/dl (65-105)
--- NOTE | 2021-05-25 14:50 | PM.IMPN ---
Progress Note: A&P Assessment and Plan (1) Sepsis: Code(s): A41.9 - Sepsis, unspecified organism Status: Acute Assessment and Plan: Patient presents with severe sepsis and septicemia with tachycardia, leukocytosis, hypotension and elevated lactic acid. Blood cultures 05/13 growing MSSA from both bottles. Sources probably osteo, skin +/- pneumonia given chest x-ray findings. Treated with cefepime and vancomycin but changed to Ancef once sensitivities known. Repeat blood cultures 05/15 still positive for MSSA. TTE was negative for any vegetation. BCx 05/18 NGTD. Will need senior living IV abx for at least 6 weeks. PICC line placed Waiting for SNF placement. (2) Pneumonia: Code(s): J18.9 - Pneumonia, unspecified organism Status: Acute Assessment and Plan: On admission, CXR showed bilateral lower lobe pulmonary infiltrates. COVID is negative. Blood cultures are positive for MSSA. He remains on room air. Antibiotics changed to Ancef. No chest pain to suggest he has a parapneumonic effusion and felt more likely related to his CHF. Repeat CXR 05/20 showing improved diffuse lung disease c/w pulmonary edema and decreased effusions. Can not exclude PNA. Continue current treatment plan. (3) Osteomyelitis: Qualifiers: Laterality: right Osteomyelitis location: foot Osteomyelitis type: other acute Qualified Code(s): M86.171 - Other acute osteomyelitis, right ankle and foot Code(s): M86.9 - Osteomyelitis, unspecified Status: Acute Assessment and Plan: Left 1st/2nd toe partially necrotic. Left foot xray showing acute osteomyelitis involving second distal phalanx with pathologic fracture and chronic-appearing erosions and deformities involving all of the rays, likely chronic osteomyelitis. 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 Arterial doppler showing THOMAS not measurable but normal right TBI and left measuring 0.43 consistent with PAD. Will need further workup for PAD as outpatient. Osteomyelitis probably the source of the bacteremia. Ortho consulted and appreciate their input. Continue IV abx. Continue PT/OT. (4) Necrotic toes: Code(s): I96 - Gangrene, not elsewhere classified Status: Acute Assessment and Plan: As above (5) Hypotension: Qualifiers: Hypotension type: other hypotension type Qualified Code(s): I95.89 - Other hypotension Code(s): I95.9 - Hypotension, unspecified Status: Acute Assessment and Plan: Patient's blood pressure was soft on admission related to the sepsis (and/or cardiogenic) and dropped to 74/60 felt related Lasix. Since admission, blood pressure was still soft at times but more stable. BP reviewed and stable 05/25. (6) Elevated liver function tests: Code(s): R94.5 - Abnormal results of liver function studies Status: Acute Assessment and Plan: Elevated liver enzymes noted. He did have a reactive HCV antibody screen but HCV RNA levels were negative. Right upper quadrant ultrasound showing gallbladder wall thickening secondary to interstitial edema, moderate size right pleural effusion and small volume of ascites. Liver with no focal lesion. Probably hepatic congestion from his uncontrolled heart failure and sepsis; elevated AP from the osteomyelitis. Atorvastatin d/c'd until transaminases normalize. (7) Elevated troponin: Code(s): R77.8 - Other specified abnormalities of plasma proteins Status: Acute Assessment and Plan: Troponin elevated on admission and peaked at 0.28. EKG showing paced rhythm. Echocardiogram as mentioned below. Suspect elevated troponin related to the sepsis, CHF and/or hypotension. No ACS. Appreciate Cardiology input. Continue current treatment plan. (8) Lactic acidosis
[2021-05-25 17:07] LABS: Glucose Point of Care 244 mg/dl (65-105)
[2021-05-25] MEDS: INSULIN ASPART (*BKC) 100 UNITS/ML SUB-Q (17:07)
[2021-05-25] MEDS: ENOXAPARIN 40 MG/0.4 ML SYRINGE SUB-Q (17:10)
[2021-05-25] MEDS: INSULIN GLARGINE (*BKC) 100 UNITS/ML 10 UNITS SUB-Q (21:02)
[2021-05-25 21:26] LABS: Glucose Point of Care 198 mg/dl (65-105)
[2021-05-26 01:00] VITALS: BP 104/61; PULSE 77; RESP 20; TEMP 36.5; O2SAT 98
[2021-05-26] MEDS: ceFAZolin 2 GM/D5W 50 ML 2 GM/50 ML BAG IVPB ×3 (01:54→17:08)
[2021-05-26] MEDS: CENTRAL LINE FLUSH 10 ML IV PUSH ×2 (04:50→14:10)
[2021-05-26 05:00] VITALS: BP 111/66; PULSE 71; RESP 21; TEMP 36.3; O2SAT 100
[2021-05-26 07:51] LABS: Glucose Point of Care 122 mg/dl (65-105)
[2021-05-26 08:20] VITALS: PULSE 70
[2021-05-26] MEDS: ASPIRIN 81 MG ENTERIC TABLET PO (08:20)
[2021-05-26] MEDS: carvediloL 6.25 MG TABLET PO (08:20)
[2021-05-26] MEDS: EMPAGLIFLOZIN 10 MG TABLET PO (08:20)
[2021-05-26] MEDS: FUROSEMIDE 40 MG TABLET PO ×2 (08:21→16:27)
[2021-05-26] MEDS: MAGNESIUM OXIDE 400 MG TABLET PO ×2 (08:21→16:27)
[2021-05-26] MEDS: EUCERIN CREAM 120 GM JAR 1 APPLIC TOPICAL (08:22)
[2021-05-26] MEDS: COLLAGENASE OINT 30 GM TUBE 1 APPLIC TOPICAL (08:22)
[2021-05-26] MEDS: SACUBITRIL/VALSARTAN 12-13 MG TABLET 1 TAB PO (08:22)
--- NOTE | 2021-05-26 09:55 | PM.PNORT ---
Progress Note: A&P Assessment and Plan (1) Diabetic foot ulcer: Qualifiers: Diabetes mellitus type: due to underlying condition Diabetic foot ulcer location: unspecified part of foot Laterality: unspecified laterality Non-pressure ulcer stage: with necrosis of muscle Qualified Code(s): E08.621 - Diabetes mellitus due to underlying condition with foot ulcer; L97.503 - Non-pressure chronic ulcer of other part of unspecified foot with necrosis of muscle Code(s): E11.621 - Type 2 diabetes mellitus with foot ulcer; L97.509 - Non-pressure chronic ulcer of other part of unspecified foot with unspecified severity Status: Acute Assessment and Plan: Ulcers on bilateral feet without improvement. Santyl proving helpful in enzymatic debridement loosening slough tissue. Again, wounds likely due to a mixed picture of infection and poor blood flow/arterial disease. Patient continues to decline surgical intervention and bedside debridement. Continue with daily dressing changes. Plan to be discharged to SNF for IV antibiotics. Dispo: SNF for antibiotics per medicine team. Will reevaluate in the [facility] wound clinic at completion of antibiotics to determine changes to current dressing regimen vs. surgical options if patient is agreeable at that time. (2) Diabetes mellitus with neuropathy: Qualifiers: Diabetes mellitus type: type 2 Diabetes mellitus exterminator helper insulin use: without prison use Qualified Code(s): E11.40 - Type 2 diabetes mellitus with diabetic neuropathy, unspecified Code(s): E11.40 - Type 2 diabetes mellitus with diabetic neuropathy, unspecified Status: Acute (3) Necrotic toes: Code(s): I96 - Gangrene, not elsewhere classified Status: Acute (4) PAOD (peripheral arterial occlusive disease): Code(s): I77.9 - Disorder of arteries and arterioles, unspecified Status: Acute Assessment and Plan: May consider CT angiogram to see if any possible improvement to peripheral blood flow is an option. Subjective Subjective Date/Time Seen: 05/26/21 09:55 Interval history: No new complaints. Tolerating dressing changes well. Review of Systems Review of Systems: All systems reviewed & are unremarkable except as noted in HPI and below Exam Const: General: cooperative Nutritional Appearance: average body habitus Orientation/consciousness: patient oriented x3 Limitations: no limitations HENMT: Head: normal to inspection Ears: hearing grossly normal bilaterally General nose exam: Normal external nose present Face and sinus: normal facial exam Mouth: Yes moist mucous membranes Teeth and gingiva: dentition normal Eyes: General: appearance normal, both eyes and all related structures Pupils: Equal, round and reactive pupils present EOM: EOMs intact bilaterally Neck: Neck: normal visual inspection Resp: Effort & Inspection: normal respiratory effort and able to speak in complete sentences Neuro: General: patient oriented x3 Cranial nerves: Yes Equal, round and reactive pupils present Extrem: Other: Left foot with 2nd ray necrosis and discoloration of the distal end hallux. chronic nail changes to hallux and 2nd ray. Wet necrosis of the distal end 2nd ray without visible bone expsoure- loosening of necrosis noted. Necrosis around the hallux nailbed. Serosanguineous drainage. Mild Malodor. Unable to palpate pedal pulse. Moderate edema through the leg extending into the foot. 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 Nickel sized Ulcer on the plantar aspect of the 4th MTP joint with wet necrosis, some new granulation noted- loosening of slough tissue. Mild malodor. Serosanguineous drainage. Non palpable pedal pulse. able to palpate 4th metatarsal head through ulcer but unsure of communication to direct bone. Insensate b/l feet. Discoloration b/l LE from anterior midshaft of the tibia to toes. Venous stasis ulcers on the anterior aspect of the RLE.
[2021-05-26 09:59] VITALS: BP 117/65; PULSE 77; RESP 14; TEMP 36.9; O2SAT 100
[2021-05-26 11:13] LABS: Glucose Point of Care 173 mg/dl (65-105)
--- NOTE | 2021-05-26 13:39 | PM.DS ---
DS: Admitting Diagnosis Discharge Date 05/26/21 Admitting Diagnosis Cough DS: Discharge Diagnosis Discharge Diagnosis (1) Sepsis: Code(s): A41.9 - Sepsis, unspecified organism Status: Acute Assessment and Plan: Patient presents with severe sepsis and septicemia with tachycardia, leukocytosis, hypotension and elevated lactic acid. Blood cultures 05/13 growing MSSA from both bottles. Sources probably osteo, skin +/- pneumonia given chest x-ray findings. Treated with cefepime and vancomycin but changed to Ancef once sensitivities known. Repeat blood cultures 05/15 were still positive for MSSA. TTE was negative for any vegetation. BCx 05/18 NGTD. PICC line placed for intermediate IV abx for 6 weeks from negative BCx (through June 28). (2) Pneumonia: Code(s): J18.9 - Pneumonia, unspecified organism Status: Acute Assessment and Plan: On admission, CXR showed bilateral lower lobe pulmonary infiltrates. COVID is negative. Blood cultures are positive for MSSA. He remains on room air. Antibiotics changed to Ancef. No chest pain to suggest he has a parapneumonic effusion and felt more likely related to his CHF. Repeat CXR 05/20 showing improved diffuse lung disease c/w pulmonary edema and decreased effusions. Can not exclude PNA. (3) Osteomyelitis: Qualifiers: Osteomyelitis type: other acute Osteomyelitis location: foot Laterality: right Qualified Code(s): M86.171 - Other acute osteomyelitis, right ankle and foot Code(s): M86.9 - Osteomyelitis, unspecified Status: Acute Assessment and Plan: Left 1st/2nd toe partially necrotic. Left foot xray showing acute osteomyelitis involving second distal phalanx with pathologic fracture and chronic-appearing erosions and deformities involving all of the rays, likely chronic osteomyelitis. 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 Arterial doppler showing THOMAS not measurable but normal right TBI and left measuring 0.43 consistent with PAD. Will need further workup for PAD as outpatient. Osteomyelitis probably the source of the bacteremia. Ortho consulted and appreciate their input. (4) Necrotic toes: Code(s): I96 - Gangrene, not elsewhere classified Status: Acute Assessment and Plan: As above (5) Hypotension: Qualifiers: Hypotension type: other hypotension type Qualified Code(s): I95.89 - Other hypotension Code(s): I95.9 - Hypotension, unspecified Status: Acute Assessment and Plan: Patient's blood pressure was soft on admission related to the sepsis (and/or cardiogenic) and dropped to 74/60 felt related Lasix. Since admission, blood pressure was still soft at times but more stable and he was able to tolerate medication adjustment for his CHF. (6) Elevated liver function tests: Code(s): R94.5 - Abnormal results of liver function studies Status: Acute Assessment and Plan: Elevated liver enzymes noted. He did have a reactive HCV antibody screen but HCV RNA levels were negative. Right upper quadrant ultrasound showing gallbladder wall thickening secondary to interstitial edema, moderate size right pleural effusion and small volume of ascites. Liver with no focal lesion. Probably hepatic congestion from his uncontrolled heart failure and sepsis; elevated AP from the osteomyelitis. Atorvastatin held until transaminases normalize. (7) Elevated troponin: Code(s): R77.8 - Other specified abnormalities of plasma proteins Status: Acute Assessment and Plan: Troponin elevated on admission and peaked at 0.28. EKG showing paced rhythm. Echocardiogram as mentioned below. Suspect elevated troponin related to the sepsis, CHF and/or hypotension. No ACS. Appreciate Cardiology input
[2021-05-26 14:20] VITALS: BP 108/61; PULSE 66; RESP 16; TEMP 36.3; O2SAT 100
[2021-05-26 16:26] LABS: Glucose Point of Care 222 mg/dl (65-105)
[2021-05-26] MEDS: INSULIN ASPART (*BKC) 100 UNITS/ML SUB-Q (16:29)
[2021-05-26] MEDS: ENOXAPARIN 40 MG/0.4 ML SYRINGE SUB-Q (17:09)
== END 2021-05-26 17:55 | DRG 871 ==
LOC: ANHED 05-14 00:21 → ANHIMU 05-14 03:28 → ANHCPC 05-14 15:44 → ANH2MED 05-18 16:09 → ANHCPC 05-27 11:36 → ANHIMU 05-27 11:36
PROVIDERS: Internal Medicine; Nurse Practitioner; Admitting Provider Internal Medicine; Emergency Provider Emergency Medicine; Visit Provider Internal Medicine
DX: A41.01 Sepsis due to Methicillin susceptible Staphylococcus aureus (principal); I50.43 Acute on chronic combined systolic (congestive) and diastolic (congestive) heart failure; J18.9 Pneumonia, unspecified organism; N17.0 Acute kidney failure with tubular necrosis; M86.171 Other acute osteomyelitis, right ankle and foot; M86.172 Other acute osteomyelitis, left ankle and foot; I96 Gangrene, not elsewhere classified; I44.2 Atrioventricular block, complete; I42.8 Other cardiomyopathies; E87.2 Acidosis; M84.475A Pathological fracture, left foot, initial encounter for fracture; R65.20 Severe sepsis without septic shock; E11.69 Type 2 diabetes mellitus with other specified complication; I11.0 Hypertensive heart disease with heart failure; Z20.822 Contact with and (suspected) exposure to COVID-19; M13.871 Other specified arthritis, right ankle and foot; D64.9 Anemia, unspecified; I73.9 Peripheral vascular disease, unspecified; E11.42 Type 2 diabetes mellitus with diabetic polyneuropathy; E11.621 Type 2 diabetes mellitus with foot ulcer; L97.519 Non-pressure chronic ulcer of other part of right foot with unspecified severity; E87.5 Hyperkalemia; I95.89 Other hypotension; E78.5 Hyperlipidemia, unspecified; E55.9 Vitamin D deficiency, unspecified; Z95.810 Presence of automatic (implantable) cardiac defibrillator; Z79.01 Long term (current) use of anticoagulants; Z79.4 Long term (current) use of insulin; Z91.14 Patient's other noncompliance with medication regimen
CPT/HCPCS: 36415; 36569; 36600; 51701; 71045; 73630; 74176; 76705; 80048; 80053; 81001; 82140; 82550; 82565; 82607; 82728; 82746; 82805; 82948; 83036; 83540; 83550; 83605; 83735; 83880; 84100; 84132; 84238; 84484; 85025; 85027; 85610; 85730; 86140; 86738; 87040; 87077; 87186; 87449; 87899; 93005; 93308; 93922; 96365; 96366; 96367; 96368; 96375; 97110; 97116; 97162; 97165; 97530; 97535; 99285; A9270; C1751; C8924; C9803; G0378; J0456; J0690; J0692; J0696; J1650; J1815; J1940; J3370; J3475; J7030; J7040; P9047; Q9957; U0003; U0005

== ENCOUNTER 2022-07-16 06:10 | Inpatient (IN) | payer OTHER, SELFPAY ==
[2022-07-16] VITALS (20 sets, daily range): BP systolic 112–149; BP diastolic 63–88; PULSE 78–96; RESP 18–22; TEMP 37.1–37.5; O2SAT 90–98
--- NOTE | 2022-07-16 | ECHO_ITS ---
Patient Info Name: Dimitry Pa Age: 71 years : 1950 Gender: Male Ht: 70 in Wt: 193 lbs BSA: 2.10 m2 HR: 94 bpm BP: 149 / 77 mmHg Heart Rhythm: Sinus Rhythm Technical Quality: Fair Exam Date: 07/16/2022 2:20 PM Exam Location: [facility] Pulmonary Patient Status: Inpatient Admit Date: 07/16/2022 Staff Ordering Physician: Julia Ojeda NP Aquarist: Mylene Pineda RDCS Attending Provider: Sky Salgado MD Referring Physician: Rusty MCKEON; Exam Type: CA echo doppler color flow Study Info Indications - CHF with pleural effusion Complete two-dimensional, color flow and Doppler transthoracic echocardiogram is performed. Summary 1. Complete two-dimensional, color flow and Doppler transthoracic echocardiogram is performed. 2. Mild LV enlargement, normal LV wall thickness; severe global LV systolic dysfunction, ejection fraction about 20-25%; diastolic dysfunction is present. Normal RV size, with hypokinesis. ? Pacemaker/ICD lead in the RV. Mild left atrial enlargement. Normal mitral valve leaflets, trace MR. Mild aortic valve calcification, mild aortic stenosis, aortic valve area 2.1 cm2. Mild tricuspid regurgitation, severe pulmonary hypertension, RVSP 66 mmHg. Trivial pericardial effusion. Left pleural effusion. Left Ventricle Left ventricular chamber dimension is mildly enlarged. Left ventricular systolic function is severely reduced, estimated at 20-25%. There is no increased left ventricular wall thickness. The left ventricular diastolic function is abnormal. Right Ventricle Right ventricular chamber dimension is normal. Right ventricular systolic function is reduced. Left Atria Left atrial chamber dimension is mildly enlarged. Right Atria Right atrial chamber dimension is normal. Aortic Valve There is mild aortic valve stenosis with a peak velocity of 104 cm/s, mean gradient of 2 mmHg, and aortic valve area of 2.2 cm2. There is mild aortic valve calcification. Pulmonic Valve The pulmonic valve is not well visualized. Mitral Valve The mitral valve has normal leaflets. There is trace mitral valve regurgitation. The mitral valve annulus is mildly calcified. Tricuspid Valve The tricuspid valve leaflets are normal. There is mild tricuspid valve regurgitation. Severe pulmonary hypertension, estimated pulmonary arterial systolic pressure is 66 mmHg. Pericardium/Pleural The pericardium appears normal. There is trivial pericardial effusion. Inferior Vena Cava Dilated inferior vena cava with <50% collapse upon inspiration consistent with elevated right atrial pressure, 15 mmHg. Aorta The aortic root size at the sinus of Valsalva is normal. Left Ventricular Outflow Tract Name Value Normal LVOT 2D LVOT Diameter 2.1 cm LVOT Doppler LVOT Peak Gradient 2 mmHg LVOT Mean Gradient 1 mmHg LVOT VTI 12 cm LVOT VTI/AV VTI Ratio 0.7 LVOT Stroke Volume 38 ml LVOT CO 3.3 l/min L
--- NOTE | ~2022-07-16 | CT_ITS ---
EXAMINATION:CT diagnostic chest wo con DATE: 07/19/2022 11:17 INDICATION: Pleural effusion. TECHNIQUE: Computed tomography (CT) of the chest was performed without intravenous contrast. Automate d exposure control and iterative reconstruction technique were employed. The dose-length product (DLP ) was 182.03 mGy-cm. COMPARISON: CT abdomen and pelvis 05/14/2021 FINDINGS: There are moderate-sized pleural effusions bilaterally. There is atelectasis in the lungs w ith a dependent predominance. A calcified left lung nodule and calcified left hilar lymph nodes are c onsistent with old granulomatous disease. There is left ventricular enlargement of the heart. There a re coronary artery calcifications. There is a left chest wall pacer with leads in the right atrium, r ight ventricle, and coronary sinus. No pericardial effusion. There is bilateral gynecomastia. Body wa ll edema is noted. There are bridging endplate osteophytes at multiple levels in the spine, consisten t with diffuse idiopathic skeletal hyperostosis (DISH). IMPRESSION: 1. Moderate-sized bilateral pleural effusions. 2. Left ventricular enlargement of the heart. Reviewed, dictated and finalized at location A.
--- NOTE | ~2022-07-16 | XR_ITS ---
XR chest 1V portable DATE: 07/24/2022 05:45 INDICATION: Pleural effusion. Shortness of breath. TECHNIQUE: Portable upright AP chest on July 24, 2022 at 0537 hours COMPARISON: July 22, 2022 portable AP chest at 0837 hours FINDINGS: Left triple lead pacemaker device. Cardiomegaly. There is mild pulmonary vascular congestio n and redistribution. Mild right moderate left pleural effusions. There is infiltrate or atelectasis in the lower lung zones, left greater than right. IMPRESSION: No significant change since July 22, 2022 Reviewed, dictated and finalized at location A.
--- NOTE | ~2022-07-16 | US_ITS ---
EXAMINATION: US thoracentesis DATE: 07/26/2022 12:45 INDICATION: pleural effusion TECHNIQUE: The procedure and its risks, benefits, and alternatives were discussed with the patient. P otential risks discussed included bleeding, infection, and pneumothorax. The patient understood the r isks and agreed to proceed. The skin was prepped and draped in sterile fashion. 1% lidocaine was used for local anesthesia. Under ultrasound guidance, a 5 Fr catheter with trochar was advanced into the left pleural effusion. Fluid was aspirated. The catheter was removed, and a dressing was applied. The re were no immediate complications. FINDINGS: Ultrasound images demonstrate a left pleural effusion and the catheter within the fluid. IMPRESSION: 1. Successful ultrasound-guided thoracentesis yielding 1000 mL of clear, yellow fluid. Reviewed, dictated and finalized at location A. IMPRESSION: 1. Successful ultrasound-guided thoracentesis yielding 1000 mL of clear, yello w fluid.
--- NOTE | ~2022-07-16 | US_ITS ---
EXAMINATION: US thoracentesis DATE: 07/16/2022 13:49 INDICATION: pleural effusion TECHNIQUE: The procedure and its risks, benefits, and alternatives were discussed with the patient. P otential risks discussed included bleeding, infection, and pneumothorax. The patient understood the r isks and agreed to proceed. The skin was prepped and draped in sterile fashion. 1% lidocaine was used for local anesthesia. Under ultrasound guidance, a 5 Fr catheter with trochar was advanced into the left pleural effusion. Fluid was aspirated. The catheter was removed, and a dressing was applied. The re were no immediate complications. FINDINGS: Ultrasound images demonstrate a left pleural effusion and the catheter within the fluid. IMPRESSION: 1. Successful ultrasound-guided thoracentesis yielding 1000 mL of pancho-colored fluid. Reviewed, dictated and finalized at location A. IMPRESSION: 1. Successful ultrasound-guided thoracentesis yielding 1000 mL of pancho-colore d fluid.
--- NOTE | ~2022-07-16 | XR_ITS ---
EXAMINATION: XR_[id number]_CR DATE: 07/16/2022 14:21 INDICATION: Left pleural effusion status post thoracentesis. TECHNIQUE: A single frontal view of the chest was obtained. COMPARISON: Chest single view at 7:24 AM, CT abdomen and pelvis 05/14/21 FINDINGS: There are small right and moderate-sized left pleural effusions. There are airspace opaciti es at the lung bases. No pneumothorax. Cardiomegaly is noted. There is a left chest wall pacer with l saida in the right atrium and right ventricle and coronary sinus. IMPRESSION: 1. Small right and moderate-sized left pleural effusions with improvement on the left status post tho racentesis. 2. Airspace opacities at the lung bases, consistent with atelectasis versus pneumonia. 3. Cardiomegaly. Reviewed, dictated and finalized at location A. IMPRESSION: 1. Small right and moderate-sized left pleural effusions with improvement on th e left status post thoracentesis. 2. Airspace opacities at the lung bases, consistent with atelectasis versus pne umonia. 3. Cardiomegaly.
--- NOTE | ~2022-07-16 | XR_ITS ---
Portable chest x-ray Comparison: 07/26/2022 Clinical History: Shortness of breath Findings: Small bilateral pleural effusions are present. There is probable COPD or mild chronic inte rstitial disease. Cardiomediastinal silhouette is stable, with pacemaker device. Bones and soft tiss ues are unremarkable. Impression: Small bilateral pleural effusions. Left effusion is decreased from prior exam. Probable COPD versus chronic interstitial disease. Pacemaker device. Reviewed, dictated and finalized at location M. Impression: Small bilateral pleural effusions. Left effusion is decreased from prior exam. Probable COPD versus chronic interstitial disease. Pacemaker device.
--- NOTE | ~2022-07-16 | XR_ITS ---
EXAMINATION: XR chest 1V portable INDICATION: Shortness of breath and cough TECHNIQUE: Portable AP chest at 0812 hours COMPARISON: 07/16/2022 FINDINGS: Cardiomegaly is noted. There are small right and moderate size left pleural effusions witho ut significant change. There is no pneumothorax. There are airspace opacities of the lung bases. A mi ld diffuse interstitial pattern is present. A triple lead cardiac pacemaker of the left chest wall en ds with leads in expected locations. IMPRESSION: 1. Small right and moderate-sized left pleural effusions without significant change. 2. Cardiomegaly. 3. Diffuse lung disease, likely combination of pulmonary edema, pneumonia, and atelectasis. Reviewed, dictated and finalized at location B. IMPRESSION: 1. Small right and moderate-sized left pleural effusions without significant ch ricky. 2. Cardiomegaly. 3. Diffuse lung disease, likely combination of pulmonary edema, pneumonia, and atelectasis.
--- NOTE | ~2022-07-16 | XR_ITS ---
Portable chest x-ray Comparison: 05/20/2021 Clinical History: Shortness of breath Findings: Moderate to large left pleural effusion is present. Small right pleural effusion present. Probable mild pulmonary edema pattern. Cardiomediastinal silhouette is stable, with pacemaker device . Bones and soft tissues are unremarkable. Impression: Moderate to large left pleural effusion and small right pleural effusion. Mild pulmonary edema pattern. Pacemaker device. Reviewed, dictated and finalized at location . Impression: Moderate to large left pleural effusion and small right pleural effusion. Mild pulmonary edema pattern. Pacemaker device.
--- NOTE | ~2022-07-16 | XR_ITS ---
EXAMINATION: XR_CXR1VTHORA_CR DATE: 07/26/2022 12:38 INDICATION: Left pleural effusion status post thoracentesis. TECHNIQUE: A single frontal view of the chest was obtained. COMPARISON: Chest single view 07/24/2022 FINDINGS: There are small right and moderate-sized left pleural effusions. There are airspace opaciti es at the lung bases. No pneumothorax. Cardiomegaly is noted. There is a left chest pacer with leads in right atrium, right ventricle, and coronary sinus. IMPRESSION: 1. Small right and moderate-sized left pleural effusions with improvement on the left status post tho racentesis. 2. Airspace opacities at the lung bases, consistent with atelectasis or less likely pneumonia. 3. Cardiomegaly. Reviewed, dictated and finalized at location A. IMPRESSION: 1. Small right and moderate-sized left pleural effusions with improvement on th e left status post thoracentesis. 2. Airspace opacities at the lung bases, consistent with atelectasis or less li fredi pneumonia. 3. Cardiomegaly.
--- NOTE | ~2022-07-16 | XR_ITS ---
EXAMINATION: XR chest 1V portable DATE: 07/22/2022 08:48 INDICATION: Shortness of breath. TECHNIQUE: A single frontal view of the chest was obtained. COMPARISON: Chest single view 07/19/2022 FINDINGS: There are small right and moderate-sized left pleural effusions. There are airspace opaciti es at left lung base. No pneumothorax. Cardiomegaly is noted. There is a left chest pacer with leads in right atrium, right ventricle, and coronary sinus. IMPRESSION: 1. Stable small right and moderate-sized left pleural effusions. 2. Airspace opacities at left lung base, consistent with atelectasis versus pneumonia. 3. Cardiomegaly. Reviewed, dictated and finalized at location A. IMPRESSION: 1. Stable small right and moderate-sized left pleural effusions. 2. Airspace opacities at left lung base, consistent with atelectasis versus pne umonia. 3. Cardiomegaly.
--- NOTE | 2022-07-16 06:13 | ECG_ITS ---
Measurements Intervals [place] Rate: 96 P: 29 ND: 188 QRS: 252 QRSD: 173 T: 59 QT: 424 QTc: 537 Interpretive Statements ATRIAL SENSE- ELECTRONIC VENTRICULAR PACEMAKER NO FURTHER INTERPRETATION IS POSSIBLE ATYPICAL ECG COMPARED TO ECG 05/13/2021 23:10:39 SINUS RHYTHM NOW PRESENT Electronically Signed On 07-16-2022 7:18:13 CDT by Jovanni Goodman D.O.
--- NOTE | 2022-07-16 06:28 | ED.GENADULT ---
HPI - General Adult General Chief complaint: Shortness of Breath/Dyspnea <Collins Terrell MD - Last Filed: 07/16/22 18:57> Stated complaint: SOB with coughing <Collins Terrell MD - Last Filed: 07/16/22 18:57> Time Seen by Provider: 07/16/22 06:12 <Collins Terrell MD - Last Filed: 07/16/22 18:57> History of Present Illness HPI narrative: Male presented the emergency department for evaluation of worsening shortness of breath. Patient does have history of complete heart block with pacemaker, congestive heart failure, type 2 diabetes, history of pneumonia, chronic kidney disease. Patient states that he was walking from his car to his home when he had onset of worsening shortness of breath. Patient denied any associated chest pain with this. Patient states he has had increased lower extremity swelling over the last few days. Patient states he also had increased cough. <Collins Terrell MD - Last Filed: 07/16/22 18:57> Related Data Home medications: Home Medications Medication Instructions Recorded Confirmed magnesium oxide 400 mg (241.3 mg 400 mg PO BID 05/20/20 07/16/22 magnesium) tablet aspirin 81 mg tablet,delayed 81 mg PO EVERY OTHER DAY 07/16/22 07/16/22 release insulin aspart U-100 100 unit/mL 1 sliding scale dose subcut 07/16/22 07/16/22 subcutaneous solution (Novolog USEASDIRECTD U-100 Insulin aspart) insulin detemir U-100 100 unit/mL 10 unit subcut HS 07/16/22 07/16/22 subcutaneous solution (Levemir U-100 Insulin) <Collins Terrell MD - Last Filed: 07/16/22 18:57> Allergies/adverse reactions: Allergies Allergy/AdvReac Type Severity Reaction Status Date / Time Penicillins Allergy Mild Unknown Verified 07/16/22 09:16 <Collins Terrell MD - Last Filed: 07/16/22 18:57> Review of Systems Review of Systems: All systems reviewed & are unremarkable except as noted in HPI and below <Collins Terrell MD - Last Filed: 07/16/22 18:57> PMFSH Past Medical History Medical History: Medical History Apical mural thrombus CHF (congestive heart failure) Diabetes mellitus Diabetes mellitus with neuropathy Diabetic ulcer of right foot associated with diabetes mellitus due to underlying condition Dyslipidemia Essential (primary) hypertension Necrotic toes NICM (nonischemic cardiomyopathy) NSVT (nonsustained ventricular tachycardia) PAOD (peripheral arterial occlusive disease) PAT (paroxysmal atrial tachycardia) Peripheral arterial disease Shoulder fracture, left Staph infection thigh Vitamin D deficiency <Collins Terrell MD - Last Filed: 07/16/22 18:57> Surgical History Surgical History: Surgical History History of complete ray amputation of third toe of right foot 05/2020 - due to osteomyelitis History of permanent cardiac pacemaker placement Medtronic BiV-ICD placed at [facility] 08/06/19 <Collins Terrell MD - Last Filed: 07/16/22 18:57> Family History Family History: Family History Other No problems noted. Sibling Acute myocardial infarction Mother Lung cancer <Collins Terrell MD - Last Filed: 07/16/22 18:57> Social History Social History: Social History Social History: Patient lives home alone He is working at [employer] is being held until he is able to return to work. He is a full code. He is a lifelong nonsmoker. No drug or alcohol use. The patient had 1 daughter and was but both the daughter and were killed in a car wreck. The patient does not have any power assistant attorney general for healthcare. He lives home alone. Code status full code Smoking status: Never smoker Second hand tobacco smoke exposure: No Alcohol intake: current Drinks per week: 1 Substance use: current
[2022-07-16 06:38] LABS: Basophils Percent Auto 0.4 % (0.2-1.2); Eosinophils Absolute Auto 0.1 K/mm3 (0-0.3); Eosinophils Percent Auto 1.3 % (0-4.4); Immature Granulocyte Absolute 0.03 K/mm3 (0.00-0.031); Immature Granulocyte Percent A 0.4 % (0-0.5); Lymphocytes Absolute Auto 0.55 K/mm3 (0.9-3.2); Lymphocytes Percent Auto 7.2 % (18.3-44.2); Mean Corpuscular HGB Conc 31.7 g/dl (32-36); Mean Corpuscular Volume 97.6 fl (80-100); Mean Platelet Volume 11.4 fl (7.4-10.4); Monocytes Absolute Auto 0.7 K/mm3 (0.1-0.6); Neutrophils Absolute Auto 6.2 K/mm3 (1.3-6.7); Neutrophils Percent Auto 81.7 % (45.5-73.1); Platelet Count Result 213 k/mm3 (150-375); Red Cell Distribution Width 14.7 % (11.5-14.5); White Blood Count 7.6 K/mm3 (4.5-10.0)
[2022-07-16 06:44] LABS: INR 1.1
[2022-07-16 06:45] LABS: Partial Thromboplastin Time 27.7 SECONDS (22.3-36.8)
[2022-07-16 06:50] LABS: Alanine Aminotransferase 39 U/L (6-50); Albumin Level 4.4 g/dL (3.5-5.1); Alkaline Phosphatase 227 U/L (38-126); Anion Gap 6 mmol/L (8-16); Aspartate Amino Transferase 38 U/L (17-59); Bilirubin,Total 1.2 mg/dL (0.2-1.3); Blood Urea Nitrogen 25 mg/dL (9-20); Calcium 8.9 mg/dL (8.4-10.2); Carbon Dioxide 34 mmol/L (22-30); Chloride 100 mmol/L (98-107); Estimated CRCL calculation 70 ml/min; Estimated Glomerular Filt Rate > 60; Glucose 200 mg/dL (65-110); Potassium 4.8 mmol/L (3.4-5.0); Sodium 140 mmol/L (137-145)
[2022-07-16 06:59] LABS: NT Pro B Type Natriuretic Pept 7930 pg/mL (19.9-100)
[2022-07-16 07:12] LABS: Influenza A QL RT-PCR Negative (Negative); Influenza B QL RT-PCR Negative (Negative); RSV RNA, RT-PCR Negative (Negative); SARS-CoV-2 RNA PCR Positive
--- NOTE | 2022-07-16 07:13 | PC.NURSE ---
Patient report received from DONNIE Ohara. All questions answered and care of patient assumed.
--- NOTE | 2022-07-16 07:44 | PC.NURSE ---
Patient resting quietly in stretcher. NAD. VSS. Patient sating 95-100% on RA. Call-light within reach. Awaiting further orders and disposition.
[2022-07-16] MEDS: FUROSEMIDE INJ 40 MG/4 ML VIAL IV PUSH ×2 (09:02→17:09)
--- NOTE | 2022-07-16 09:10 | ADMGEN ---
This patient, Dimitry Pa, was admitted to Medical Room 256-01. Patient/family oriented to hospital policies and general routines including ID bracelet, bed and alarms, visiting hours, pain management, procedures, bathroom and other care routines, personal items, smoking policy, room service/diet, and visiting hours. Information on how to activate the Rapid Response Team has been discussed. Patient/Family are encouraged to report perceived risks to care and to ask questions if they do not understand what they are told or what they should do.
--- NOTE | 2022-07-16 12:53 | PM.IMHP ---
H&P: HPI History of Present Illness Date/Time: 07/16/22 12:53 Chief Complaint: Shortness of breath Narrative: This is a 71-year-old male patient who does not wear supplemental oxygen at home. He has a history of congestive heart failure and diabetes. The patient stated that he was walking from his car to his home and he had and sudden onset of worsening shortness of bread. He denied any chest pain. The patient will not take off his shoes show me is be as he stated it is against his scientologist for anybody to touch his feet. H&H is 13.0 in 41.0. Which is above his baseline. The patient also stated that he lives home alone and he is too weak to be able to take care of himself. His blood sugar was noted to be 200. BNP is 7930. The patient was found to be positive for influenza A. Chest x-ray was read as Moderate to large left pleural effusion and small right pleural effusion. Mild pulmonary edema pattern. Pacemaker device. The patient was given Lasix x1. The patient is being admitted to inpatient status on the date of service of 07/16/2022 Review of Systems Review of Systems: All systems reviewed & are unremarkable except as noted in HPI and below Constitutional: Constitutional: Reports as per HPI and Reports no additional constitutional complaints Eyes: Eyes: Reports as per HPI and Reports no additional eye complaints ENT: Reports system reviewed and no additional complaints, except as documented and Reports Normal hearing present Cardiovascular: Cardiovascular: Reports no additional cardiovascular complaints Respiratory: Respiratory: Reports no additional respiratory complaints and Reports no additional respiratory complaints Gastrointestinal: Gastrointestinal: Reports as per HPI and Reports no additional gastrointestinal complaints Musculoskeletal: Musculoskeletal: Reports no additional musculoskeletal complaints Integumentary/Breasts: Skin/Breast: Reports system reviewed and no additional complaints, except as docu and Reports as per HPI Neurologic: Reports system reviewed and no additional complaints, except as documented, Reports as per HPI and Reports Normal hearing present Psychiatric: Psychiatric: Reports no additional psychiatric complaints and Reports as per HPI Endocrine: Endocrine: Reports no additional endocrine complaints Hematologic/Lymphatic: Hematologic/Lymphatic: Reports no additional hematologic/lymphatic complaints Allergic/Immunologic: Allergic/Immunologic: Reports no additional allergic/immunologic complaints PMFSH Past Medical History Medical History Apical mural thrombus CHF (congestive heart failure) Diabetes mellitus Diabetes mellitus with neuropathy Diabetic ulcer of right foot associated with diabetes mellitus due to underlying condition Dyslipidemia Essential (primary) hypertension Necrotic toes NICM (nonischemic cardiomyopathy) NSVT (nonsustained ventricular tachycardia) PAOD (peripheral arterial occlusive disease) PAT (paroxysmal atrial tachycardia) Peripheral arterial disease Shoulder fracture, left Staph infection thigh Vitamin D deficiency Surgical History Surgical History History of complete ray amputation of third toe of right foot 05/2020 - due to osteomyelitis History of permanent cardiac pacemaker placement Medtronic BiV-ICD placed at [facility] 08/06/19 Family History Family History Other No problems noted. Sibling Acute myocardial infarction Mother Lung cancer Social History Social History Social History: Patient lives home alone He is working at [employer] is being held until he is able to return to work. He is a full code. He is a lifelong nonsmoker. No drug or alcohol use. The patient had 1 daughter and was but both the daughter and w
[2022-07-16 14:03] LABS: pH Pleural Fluid > 7.500 (7.210-7.500)
--- NOTE | 2022-07-16 14:58 | PC.NURSE ---
stat gram stain of light wbc seen call ed to Julia Ojeda ONCOLOGY SOCIAL WORKER
[2022-07-16 15:03] LABS: Appearance Pleural Fluid Hazy (Clear); Color Pleural Fluid Yellow (Colorless); Pleural fluid source Pleural fluid
[2022-07-16 15:04] LABS: Neutrophils Pleural Fluid 0 % (0-25)
[2022-07-16 15:05] LABS: Lymphocytes Pleural Fluid 50 %; Macrophages Pleural Fluid 43 %; Mesothelial Cells Pleural Flui 7 %
[2022-07-16] MEDS: carvediloL 6.25 MG TABLET PO ×2 (15:05→20:08)
[2022-07-16 17:02] LABS: Glucose Point of Care 134 mg/dl (65-105)
[2022-07-16] MEDS: ENOXAPARIN 40 MG/0.4 ML SYRINGE SUB-Q (17:09)
[2022-07-16] MEDS: MAGNESIUM OXIDE 400 MG TABLET PO (17:09)
[2022-07-16] MEDS: INSULIN GLARGINE (*BKC) 100 UNITS/ML 10 UNITS SUB-Q (20:08)
[2022-07-16] MEDS: SACUBITRIL/VALSARTAN 24-26 MG TABLET 1 TAB PO (20:08)
[2022-07-16 20:57] LABS: Glucose Point of Care 185 mg/dl (65-105)
[2022-07-17] VITALS (7 sets, daily range): BP systolic 98–108; BP diastolic 48–60; PULSE 72–80; RESP 16–18; TEMP 36.4–37.2; O2SAT 90–93
[2022-07-17 06:15] LABS: Basophils Percent Auto 0.6 % (0.2-1.2); Eosinophils Percent Auto 0.4 % (0-4.4); Hematocrit 35.5 % (42.0-52.0); Hemoglobin 11.3 g/dL (14.0-18.0); Immature Granulocyte Absolute 0.02 K/mm3 (0.00-0.031); Immature Granulocyte Percent A 0.4 % (0-0.5); Lymphocytes Absolute Auto 0.52 K/mm3 (0.9-3.2); Lymphocytes Percent Auto 9.9 % (18.3-44.2); Mean Corpuscular HGB Conc 31.8 g/dl (32-36); Mean Corpuscular Hemoglobin 30.6 pg (26-34); Mean Corpuscular Volume 96.2 fl (80-100); Mean Platelet Volume 11.7 fl (7.4-10.4); Monocytes Absolute Auto 0.6 K/mm3 (0.1-0.6); Monocytes Percent Auto 10.8 % (2.6-8.5); Neutrophils Absolute Auto 4.1 K/mm3 (1.3-6.7); Neutrophils Percent Auto 77.9 % (45.5-73.1); Platelet Count Result 173 k/mm3 (150-375); Red Blood Count 3.69 M/mm3 (4.6-6.20); Red Cell Distribution Width 14.8 % (11.5-14.5); White Blood Count 5.3 K/mm3 (4.5-10.0)
[2022-07-17 06:20] LABS: Lactic Acid Reflex 1.1 mmol/L (0.7-2.0)
[2022-07-17 06:32] LABS: Carbon Dioxide 32 mmol/L (22-30); Chloride 97 mmol/L (98-107); Sodium 136 mmol/L (137-145)
[2022-07-17 06:33] LABS: Alanine Aminotransferase 27 U/L (6-50); Albumin Level 3.6 g/dL (3.5-5.1); Alkaline Phosphatase 154 U/L (38-126); Anion Gap 7 mmol/L (8-16); Aspartate Amino Transferase 27 U/L (17-59); Bilirubin,Total 1.1 mg/dL (0.2-1.3); Blood Urea Nitrogen 28 mg/dL (9-20); Calcium 8.1 mg/dL (8.4-10.2); Estimated CRCL calculation 70 ml/min; Estimated Glomerular Filt Rate > 60; Glucose 134 mg/dL (65-110); Magnesium 2.4 mg/dL (1.6-2.3)
[2022-07-17 06:44] LABS: Hemoglobin A1C 8.9 % (<5.7)
[2022-07-17] MEDS: MAGNESIUM OXIDE 400 MG TABLET PO ×2 (08:19→18:23)
[2022-07-17] MEDS: EMPAGLIFLOZIN 10 MG TABLET PO (08:19)
[2022-07-17] MEDS: FUROSEMIDE INJ 40 MG/4 ML VIAL IV PUSH ×2 (08:19→18:23)
[2022-07-17 08:32] LABS: Glucose Point of Care 125 mg/dl (65-105)
[2022-07-17] MEDS: SACUBITRIL/VALSARTAN 24-26 MG TABLET 1 TAB PO ×2 (08:40→20:05)
[2022-07-17] MEDS: guaiFENesin/DEXTROMETHORPHAN 10 ML UDC PO (08:42)
[2022-07-17 12:13] LABS: Glucose Point of Care 143 mg/dl (65-105)
[2022-07-17 17:29] LABS: Glucose Point of Care 116 mg/dl (65-105)
[2022-07-17] MEDS: ENOXAPARIN 40 MG/0.4 ML SYRINGE SUB-Q (18:23)
--- NOTE | 2022-07-17 18:50 | PM.IMPN ---
Progress Note: A&P Assessment and Plan (1) COVID: Code(s): U07.1 - COVID-19 Status: Acute Assessment and Plan: Supportive care, stable on room air, check labs (2) Pleural effusion: Code(s): J90 - Pleural effusion, not elsewhere classified Status: Acute Assessment and Plan: Status post thoracentesis with removal of 1 L of fluid 07/16 (3) Acute exacerbation of CHF (congestive heart failure): Code(s): I50.9 - Heart failure, unspecified Status: Acute Assessment and Plan: Echo from 2020 showed an EF of 30-35% with grade 2 diastolic dysfunction, moderate pulmonary hypertension and moderate valvular disease Repeat echo pending, continue IV diuresis (4) Dyslipidemia: Code(s): E78.5 - Hyperlipidemia, unspecified Status: Acute Assessment and Plan: Continue with heart healthy diet (5) Essential (primary) hypertension: Code(s): I10 - Essential (primary) hypertension Status: Acute Assessment and Plan: Continue with Entresto Continue with Coreg Continue with Lasix (6) Diabetes mellitus: Qualifiers: Diabetes mellitus type: type 2 Diabetes mellitus half-way insulin use: without half-way use Diabetes mellitus complication status: without complication Qualified Code(s): E11.9 - Type 2 diabetes mellitus without complications Code(s): E11.9 - Type 2 diabetes mellitus without complications Status: Chronic Assessment and Plan: Accu-Cheks, sliding scale insulin, A1c was 8.9 07/17 (7) Anemia: Code(s): D64.9 - Anemia, unspecified Status: Acute Assessment and Plan: Stable, monitor, appears to be at baseline Plan DVT prophylaxis with SCDs GI prophylaxis not indicated Code status full code Subjective Date/time seen: 07/17/22 18:50 Interval history: 71-year-old male with past medical history significant for heart failure and diabetes is presenting with shortness of breath, found to have pleural effusion and was positive for COVID. No overnight events noted. No chest pain. No nausea, vomiting or diarrhea. No fevers or chills. Still with some shortness of breath, much improved since yesterday. Review of Systems Review of Systems: 12 point review of systems was assessed and was negative except as noted in the HPI Exam Narrative: General: No acute distress, alert and oriented per baseline HEENT: Atraumatic, normocephalic, mucous membranes moist CV: Regular rate and rhythm, S1, S2 Lungs: Clear to auscultation bilaterally, no rales or crackles noted, no wheezes, good air entry Abdomen: Soft, nontender, nondistended Extremities: Normal to inspection Skin: No rashes noted, no lesions or wounds seen Psych: Euthymic, normal affect Objective Data Vital Signs Vital Signs: Vital Signs - 24 hr 07/16/22 19:58 07/16/22 20:08 07/16/22 20:00 Temperature 98.8 F Pulse Rate 90 78 78 Respiratory Rate 20 20 Blood Pressure 112/63 Pulse Oximetry 91 91 Oxygen Delivery Room Air 07/17/22 04:14 07/17/22 08:16 07/17/22 08:36 Temperature 97.5 F L 98.3 F Pulse Rate 72 76 80 Respiratory Rate 18 18 Blood Pressure 98/54 L 108/56 L Pulse Oximetry 93 93 Oxygen Delivery 07/17/22 08:15 07/17/22 14:00 Temperature 99.0 F Pulse Rate 74 Respiratory Rate 17 Blood Pressure 98/48 L Pulse Oximetry 93 91 Oxygen Delivery Room Air Intake/Output Intake/Output: Intake & Output 07/14/22 07/15/22 07/16/22 07/17/22 23:59 23:59 23:59 23:59 Intake Total 550 1570 Output Total 2800 1850 Balance -2250 -280 Meds/Results Medications: Active Medications Generic Name Dose Route Start Last Admin Trade Name Freq PRN Reason Stop Dose Admin Albuterol 2 puff 07/16/22 13:33 Albuterol Sulfate (*Sp) Aerosol 1 Puff INHALATION Q6HRT PRN Shortness Of Breath Carvedilol 6.25 mg 07/16/22 13:30 07/17/22 08:36 Carved
[2022-07-17] MEDS: guaiFENesin 600 MG/DEXTROMETHORPHAN 30 MG SR TAB 12 HR 1 TAB PO (20:05)
[2022-07-17] MEDS: carvediloL 6.25 MG TABLET PO (20:05)
[2022-07-17] MEDS: INSULIN GLARGINE (*BKC) 100 UNITS/ML 10 UNITS SUB-Q (20:08)
[2022-07-17 20:10] LABS: Lactic Acid Reflex 1.2 mmol/L (0.7-2.0)
[2022-07-17 20:11] LABS: CRP 4.6 mg/dL (<1.0)
[2022-07-17 20:14] LABS: Glucose Point of Care 174 mg/dl (65-105)
[2022-07-17 20:18] LABS: D Dimer 1.97 ug/mL (<0.48)
[2022-07-17 20:34] LABS: Procalcitonin 0.2 ng/mL
[2022-07-18] VITALS (8 sets, daily range): BP systolic 100–119; BP diastolic 62–73; PULSE 65–86; RESP 14–20; TEMP 36.5–37.1; O2SAT 91–94
[2022-07-18 05:48] LABS: Basophils Percent Auto 0.5 % (0.2-1.2); Eosinophils Absolute Auto 0.1 K/mm3 (0-0.3); Eosinophils Percent Auto 1.4 % (0-4.4); Hematocrit 35.6 % (42.0-52.0); Hemoglobin 11.4 g/dL (14.0-18.0); Immature Granulocyte Absolute 0.02 K/mm3 (0.00-0.031); Immature Granulocyte Percent A 0.3 % (0-0.5); Lymphocytes Absolute Auto 0.71 K/mm3 (0.9-3.2); Lymphocytes Percent Auto 10.8 % (18.3-44.2); Mean Corpuscular Hemoglobin 29.9 pg (26-34); Mean Corpuscular Volume 93.4 fl (80-100); Mean Platelet Volume 11.3 fl (7.4-10.4); Monocytes Absolute Auto 0.8 K/mm3 (0.1-0.6); Monocytes Percent Auto 12.1 % (2.6-8.5); Neutrophils Absolute Auto 4.9 K/mm3 (1.3-6.7); Neutrophils Percent Auto 74.9 % (45.5-73.1); Platelet Count Result 167 k/mm3 (150-375); Red Blood Count 3.81 M/mm3 (4.6-6.20); Red Cell Distribution Width 14.5 % (11.5-14.5); White Blood Count 6.6 K/mm3 (4.5-10.0)
[2022-07-18 06:04] LABS: Alanine Aminotransferase 24 U/L (6-50); Albumin Level 3.5 g/dL (3.5-5.1); Alkaline Phosphatase 141 U/L (38-126); Anion Gap 4 mmol/L (8-16); Aspartate Amino Transferase 26 U/L (17-59); Blood Urea Nitrogen 27 mg/dL (9-20); Calcium 8.1 mg/dL (8.4-10.2); Carbon Dioxide 35 mmol/L (22-30); Chloride 96 mmol/L (98-107); Estimated CRCL calculation 78 ml/min; Estimated Glomerular Filt Rate > 60; Glucose 69 mg/dL (65-110); Potassium 3.7 mmol/L (3.4-5.0); Sodium 135 mmol/L (137-145)
[2022-07-18] MEDS: ALBUTEROL SULFATE (*SP) INHALER 2 PUFF INHALATION ×2 (06:11→21:28)
[2022-07-18 08:31] LABS: Glucose Point of Care 76 mg/dl (65-105)
[2022-07-18] MEDS: FUROSEMIDE INJ 40 MG/4 ML VIAL IV PUSH ×2 (09:05→17:33)
[2022-07-18] MEDS: SACUBITRIL/VALSARTAN 24-26 MG TABLET 1 TAB PO ×2 (09:05→20:46)
[2022-07-18] MEDS: MAGNESIUM OXIDE 400 MG TABLET PO ×2 (09:05→17:33)
[2022-07-18] MEDS: guaiFENesin 600 MG/DEXTROMETHORPHAN 30 MG SR TAB 12 HR 1 TAB PO ×2 (09:05→20:46)
[2022-07-18] MEDS: EMPAGLIFLOZIN 10 MG TABLET PO (09:05)
[2022-07-18] MEDS: carvediloL 6.25 MG TABLET PO ×2 (09:05→20:46)
[2022-07-18 12:11] LABS: Glucose Point of Care 168 mg/dl (65-105)
--- NOTE | 2022-07-18 13:38 | PM.IMPN ---
Progress Note: A&P Assessment and Plan (1) COVID: Code(s): U07.1 - COVID-19 Status: Acute Assessment and Plan: Supportive care, stable on room air, check labs (2) Pleural effusion: Code(s): J90 - Pleural effusion, not elsewhere classified Status: Acute Assessment and Plan: Status post thoracentesis with removal of 1 L of fluid 07/16 Recheck chest x-ray 07/19 (3) Acute exacerbation of CHF (congestive heart failure): Code(s): I50.9 - Heart failure, unspecified Status: Acute Assessment and Plan: Echo from 2020 showed an EF of 30-35% with grade 2 diastolic dysfunction, moderate pulmonary hypertension and moderate valvular disease Continue IV diuresis, echo from 07/16 showed EF 20-25%, severe global left ventricular systolic dysfunction, diastolic dysfunction with right ventricular hypokinesis, mild valvular disease and severe pulmonary hypertension noted with a trivial pericardial effusion as well (4) Dyslipidemia: Code(s): E78.5 - Hyperlipidemia, unspecified Status: Acute Assessment and Plan: Continue with heart healthy diet (5) Essential (primary) hypertension: Code(s): I10 - Essential (primary) hypertension Status: Acute Assessment and Plan: Continue with Entresto Continue with Coreg Continue with Lasix 40 mg BID IV (6) Diabetes mellitus: Qualifiers: Diabetes mellitus complication status: without complication 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 mellitus 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 terminal operator insulin use: without computer terminal operator use Diabetes mellitus type: type 2 Qualified Code(s): E11.9 - Type 2 diabetes mellitus without complications Code(s): E11.9 - Type 2 diabetes mellitus without complications Status: Chronic Assessment and Plan: Accu-Cheks, sliding scale insulin, A1c was 8.9 07/17 (7) Anemia: Code(s): D64.9 - Anemia, unspecified Status: Acute Assessment and Plan: Stable, monitor, appears to be at baseline Plan DVT prophylaxis with lovenox GI prophylaxis not indicated Code status full code Subjective Date/time seen: 07/18/22 13:38 Interval history: 71-year-old male with past medical history significant for heart failure and diabetes is presenting with shortness of breath, found to have pleural effusion and was positive for COVID. No overnight events noted. No chest pain. No nausea, vomiting or diarrhea. No fevers or chills. Still with some shortness of breath, much improved since yesterday. Patient still feels a little weak, ready to go home tomorrow. Review of Systems Review of Systems: 12 point review of systems was assessed and was negative except as noted in the HPI Exam Narrative: General: No acute distress, alert and oriented per baseline HEENT: Atraumatic, normocephalic, mucous membranes moist CV: Regular rate and rhythm, S1, S2 Lungs: Clear to auscultation bilaterally, no rales or crackles noted, no wheezes, good air entry Abdomen: Soft, nontender, nondistended Extremities: Normal to inspection Skin: No rashes noted, no lesions or wounds seen Psych: Euthymic, normal affect Objective Data Vital Signs Vital Signs: Vital Signs - 24 hr 07/17/22 14:00 07/17/22 20:04 07/17/22 20:05 Temperature 99.0 F 97.8 F Pulse Rate 74 73 73 Respiratory Rate 17 16 Blood Pressure 98/48 L 108/60 Pulse Oximetry 91 90 Oxygen Delivery 07/18/22 06:14 07/18/22 06:11 07/18/22 09:03 Temperature 97.7 F 97.8 F Pulse Rate 74 65 74 Respiratory Rate 14 16 20 Blood Pressure 108/65 119/66 Pulse Oximetry 91 94 Oxygen Delivery 07/18/22 09:05 07/18/22 09:15 07/18/22 09:03 Temperature Pulse Rate 74 Respiratory Rate Blood Pressure Pulse Oximetry 94 Oxygen Delivery Room Air Room Air Intake/Output Intake/Output: Intake & Output 07/15/22 07/16/22 07/17/22 07/18/22 23:59 23:59 23:59 23:59 Intake Total 550 2160 780 Output Total 2800
[2022-07-18 17:19] LABS: Glucose Point of Care 106 mg/dl (65-105)
[2022-07-18] MEDS: ENOXAPARIN 40 MG/0.4 ML SYRINGE SUB-Q (17:33)
[2022-07-18] MEDS: INSULIN GLARGINE (*BKC) 100 UNITS/ML 10 UNITS SUB-Q (20:46)
[2022-07-18 21:01] LABS: Glucose Point of Care 233 mg/dl (65-105)
[2022-07-19] VITALS (7 sets, daily range): BP systolic 102–117; BP diastolic 60–81; PULSE 42–92; RESP 16–18; TEMP 36.5–36.6; O2SAT 92–98
[2022-07-19 06:07] LABS: Basophils Percent Auto 0.6 % (0.2-1.2); Eosinophils Absolute Auto 0.2 K/mm3 (0-0.3); Eosinophils Percent Auto 3.6 % (0-4.4); Hematocrit 38.5 % (42.0-52.0); Hemoglobin 12.2 g/dL (14.0-18.0); Immature Granulocyte Absolute 0.03 K/mm3 (0.00-0.031); Immature Granulocyte Percent A 0.6 % (0-0.5); Lymphocytes Absolute Auto 0.68 K/mm3 (0.9-3.2); Lymphocytes Percent Auto 13.7 % (18.3-44.2); Mean Corpuscular HGB Conc 31.7 g/dl (32-36); Mean Corpuscular Hemoglobin 30.6 pg (26-34); Mean Corpuscular Volume 96.5 fl (80-100); Mean Platelet Volume 11.3 fl (7.4-10.4); Monocytes Absolute Auto 0.7 K/mm3 (0.1-0.6); Monocytes Percent Auto 13.9 % (2.6-8.5); Neutrophils Absolute Auto 3.3 K/mm3 (1.3-6.7); Neutrophils Percent Auto 67.6 % (45.5-73.1); Platelet Count Result 179 k/mm3 (150-375); Red Blood Count 3.99 M/mm3 (4.6-6.20); Red Cell Distribution Width 14.6 % (11.5-14.5)
[2022-07-19 06:18] LABS: Alanine Aminotransferase 25 U/L (6-50); Albumin Level 3.6 g/dL (3.5-5.1); Alkaline Phosphatase 131 U/L (38-126); Anion Gap 4 mmol/L (8-16); Aspartate Amino Transferase 32 U/L (17-59); Bilirubin,Total 0.9 mg/dL (0.2-1.3); Blood Urea Nitrogen 24 mg/dL (9-20); Calcium 8.1 mg/dL (8.4-10.2); Carbon Dioxide 36 mmol/L (22-30); Chloride 97 mmol/L (98-107); Estimated CRCL calculation 70 ml/min; Estimated Glomerular Filt Rate > 60; Glucose 76 mg/dL (65-110); Potassium 3.6 mmol/L (3.4-5.0); Sodium 137 mmol/L (137-145)
[2022-07-19 08:18] LABS: Glucose Point of Care 83 mg/dl (65-105)
--- NOTE | 2022-07-19 08:42 | PM.IMPN ---
Progress Note: A&P Assessment and Plan (1) COVID: Code(s): U07.1 - COVID-19 Status: Acute Assessment and Plan: Supportive care, stable on room air, check labs (2) Pleural effusion: Code(s): J90 - Pleural effusion, not elsewhere classified Status: Acute Assessment and Plan: Status post thoracentesis with removal of 1L of fluid 07/16 Recheck chest x-ray 07/19 looks worse, follow up pleural fluid studies, pending (3) Acute exacerbation of CHF (congestive heart failure): Code(s): I50.9 - Heart failure, unspecified Status: Acute Assessment and Plan: Echo from 2020 showed an EF of 30-35% with grade 2 diastolic dysfunction, moderate pulmonary hypertension and moderate valvular disease Continue IV diuresis, echo from 07/16 showed EF 20-25%, severe global left ventricular systolic dysfunction, diastolic dysfunction with right ventricular hypokinesis, mild valvular disease and severe pulmonary hypertension noted with a trivial pericardial effusion as well 07/19: Cardiology consult pending, increase diuresis to lasix 40 mg IV TID (4) Dyslipidemia: Code(s): E78.5 - Hyperlipidemia, unspecified Status: Acute Assessment and Plan: Continue with heart healthy diet (5) Essential (primary) hypertension: Code(s): I10 - Essential (primary) hypertension Status: Acute Assessment and Plan: Continue with Entresto Continue with Coreg Continue with Lasix 40 mg TID IV (6) Diabetes mellitus: Qualifiers: Diabetes mellitus complication status: without complication 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 mellitus 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 use: without ocean transportation intermediary use Diabetes mellitus type: type 2 Qualified Code(s): E11.9 - Type 2 diabetes mellitus without complications Code(s): E11.9 - Type 2 diabetes mellitus without complications Status: Chronic Assessment and Plan: Accu-Cheks, sliding scale insulin, A1c was 8.9 07/17 (7) Anemia: Code(s): D64.9 - Anemia, unspecified Status: Acute Assessment and Plan: Stable, monitor, appears to be at baseline Plan DVT prophylaxis with lovenox GI prophylaxis not indicated Code status full code Subjective Date/time seen: 07/19/22 08:42 Interval history: 71-year-old male with past medical history significant for heart failure and diabetes is presenting with shortness of breath, found to have pleural effusion and was positive for COVID. Patient states he feels a little more short of breath today than yesterday. Denies chest pain. No exertional symptoms. Review of Systems Review of Systems: 12 point review of systems was assessed and was negative except as noted in the HPI Exam Narrative: General: No acute distress, alert and oriented per baseline HEENT: Atraumatic, normocephalic, mucous membranes moist CV: Regular rate and rhythm, S1, S2 Lungs: Diminished at bases, bilaterally with some crackles scattered Abdomen: Soft, nontender, nondistended Extremities: Normal to inspection Skin: No rashes noted, no lesions or wounds seen Psych: Euthymic, normal affect Objective Data Vital Signs Vital Signs: Vital Signs - 24 hr 07/18/22 09:03 07/18/22 09:05 07/18/22 09:15 Temperature 97.8 F Pulse Rate 74 74 Respiratory Rate 20 Blood Pressure 119/66 Pulse Oximetry 94 Oxygen Delivery Room Air 07/18/22 09:03 07/18/22 14:00 07/18/22 20:46 Temperature 97.7 F Pulse Rate 72 86 Respiratory Rate 18 Blood Pressure 118/62 Pulse Oximetry 94 93 Oxygen Delivery Room Air 07/18/22 21:29 07/18/22 23:03 07/19/22 06:46 Temperature 98.7 F 97.7 F Pulse Rate 77 84 42 L Respiratory Rate 18 16 18 Blood Pressure 100/73 105/60 Pulse Oximetry 92 95 Oxygen Delivery Intake/Output Intake/Output: Intake & Output 07/16/22 07/17/22 07/18/22 07/19/22 23:59 23:59 23:59 23:59 Intake Total 550 2160 1760 1060 Output Total 2800
[2022-07-19] MEDS: EMPAGLIFLOZIN 10 MG TABLET PO (09:35)
[2022-07-19] MEDS: carvediloL 6.25 MG TABLET PO ×2 (09:35→20:59)
[2022-07-19] MEDS: guaiFENesin 600 MG/DEXTROMETHORPHAN 30 MG SR TAB 12 HR 1 TAB PO ×2 (09:35→20:59)
[2022-07-19] MEDS: FUROSEMIDE INJ 40 MG/4 ML VIAL IV PUSH ×2 (09:36→18:21)
[2022-07-19] MEDS: MAGNESIUM OXIDE 400 MG TABLET PO ×2 (09:36→18:19)
[2022-07-19] MEDS: SACUBITRIL/VALSARTAN 24-26 MG TABLET 1 TAB PO ×2 (09:36→20:59)
--- NOTE | 2022-07-19 11:50 | P.CDI_ITS ---
CDI Query Clarified Diagnosis Clarified Diagnosis: Elevated BNP on 07/16/22. Documented history of CHF. CHF noted on the assessment and plan. Chest xray on 07/16/22 notes pulmonary edema. Furosemide listed a home medication. Pt receiving IV Lasix. Please specify type and acuity of heart failure if known. * Acute * Chronic * Acute on Chronic * Unknown * Systolic * Diastolic * Combined Systolic and Diastolic * Unknown
[2022-07-19 11:54] LABS: Glucose Point of Care 101 mg/dl (65-105)
--- NOTE | 2022-07-19 12:31 | PM.CNCAR ---
Assessment and Plan Assessment and plan (1) COVID: Code(s): U07.1 - COVID-19 Status: Acute Assessment and Plan: treatment per hospitalist (2) Acute on chronic combined systolic and diastolic CHF (congestive heart failure): Code(s): I50.43 - Acute on chronic combined systolic (congestive) and diastolic (congestive) heart failure Status: Acute Assessment and Plan: presenting with progressive dyspnea on exertion and some lower extremity swelling. Underwent thoracentesis on 07/16 with removal of 1 L of fluid. Breathing this morning has once again worsened, chest x-ray is showing persistent bilateral effusions. A chest CT has been ordered. Agree with IV furosemide continue GTMT for his cardiomyopathy with Entresto, Jardiance, carvedilol. Will add spironolactone daily standing weights strict intake and output daily BMP while on IV diuretics (3) Pleural effusion: Code(s): J90 - Pleural effusion, not elsewhere classified Status: Acute Assessment and Plan: status post thoracentesis on 07/16/2022 with 1L of fluid removed. Repeat chest CT today and possible repeat thoracentesis. Agree with IV furosemide 40 mg Q8 hours. (4) Biventricular ICD (implantable cardioverter-defibrillator) in place: Code(s): Z95.810 - Presence of automatic (implantable) cardiac defibrillator Status: Acute Assessment and Plan: can check an interrogation History of Present Illness History of Present Illness Consult date/time: 07/19/22 12:31 Requesting physician: Meghan Ambrose DO Consult reason: congestive heart failure Reason For Visit: COVID/Volume Overload/Pleural Effusion Narrative: Mr. Pa is a 71-year-old male with a history of nonischemic cardiomyopathy with an EF of 15-20%, bradycardia with significant heart block status post Medtr[employer] Bi V ICD implanted at [facility] in 2019, hypertension, and diabetes mellitus on insulin. This is a patient who is followed in our office by Dr. Quintana. He presents to the hospital now with a chief complaint of worsening dyspnea over the past couple of weeks. He has also been complaining of a persistent cough. He denies any missed doses of medication. Denies any major changes in his diet and he watches his sodium intake closely. Denies any chest pain, palpitations, syncope, presyncope, orthopnea. He has been found to be COVID positive. He also has evidence of acute on chronic combined systolic and diastolic heart failure with bilateral pleural effusions, elevated BNP, lower extremity edema. He has undergone 1 thoracentesis with 1 L of fluid removed. Reports that his breathing was improved after this but today he is feeling worse. He has conversational dyspnea and orthopnea. Currently on room air. Review of Systems Review of Systems: All systems reviewed & are unremarkable except as noted in HPI and below PMFSH Past Medical History Medical History Apical mural thrombus CHF (congestive heart failure) Diabetes mellitus Diabetes mellitus with neuropathy Diabetic ulcer of right foot associated with diabetes mellitus due to underlying condition Dyslipidemia Essential (primary) hypertension Necrotic toes NICM (nonischemic cardiomyopathy) NSVT (nonsustained ventricular tachycardia) PAOD (peripheral arterial occlusive disease) PAT (paroxysmal atrial tachycardia) Peripheral arterial disease Shoulder fracture, left Staph infection thigh Vitamin D deficiency Surgical History Surgical History History of complete ray amputation of third toe of right foot 05/2020 - due to osteomyelitis History of permanent cardiac pacemaker placement Medtr[employer] BiV-ICD placed at [facility] 08/06/19 Family History Family History Other No problems noted. Sibling
[2022-07-19 17:11] LABS: Glucose Point of Care 167 mg/dl (65-105)
[2022-07-19] MEDS: ENOXAPARIN 40 MG/0.4 ML SYRINGE SUB-Q (18:19)
[2022-07-19] MEDS: INSULIN GLARGINE (*BKC) 100 UNITS/ML 10 UNITS SUB-Q (20:58)
[2022-07-19 21:08] LABS: Glucose Point of Care 174 mg/dl (65-105)
[2022-07-20] MEDS: FUROSEMIDE INJ 40 MG/4 ML VIAL IV PUSH ×3 (00:01→17:36)
[2022-07-20 05:45] VITALS: BP 119/65; PULSE 59; RESP 20; TEMP 36.1; O2SAT 99
[2022-07-20 06:15] LABS: Basophils Absolute Auto 0.1 K/mm3 (0.0-0.1); Basophils Percent Auto 0.9 % (0.2-1.2); Eosinophils Absolute Auto 0.3 K/mm3 (0-0.3); Eosinophils Percent Auto 4.5 % (0-4.4); Hemoglobin 12.8 g/dL (14.0-18.0); Immature Granulocyte Absolute 0.02 K/mm3 (0.00-0.031); Immature Granulocyte Percent A 0.4 % (0-0.5); Lymphocytes Percent Auto 14.5 % (18.3-44.2); Mean Corpuscular Volume 93.9 fl (80-100); Monocytes Absolute Auto 0.6 K/mm3 (0.1-0.6); Monocytes Percent Auto 10.9 % (2.6-8.5); Neutrophils Absolute Auto 3.8 K/mm3 (1.3-6.7); Neutrophils Percent Auto 68.8 % (45.5-73.1); Platelet Count Result 224 k/mm3 (150-375); Red Blood Count 4.26 M/mm3 (4.6-6.20); Red Cell Distribution Width 14.2 % (11.5-14.5); White Blood Count 5.5 K/mm3 (4.5-10.0)
[2022-07-20 06:29] LABS: Alanine Aminotransferase 27 U/L (6-50); Albumin Level 3.5 g/dL (3.5-5.1); Alkaline Phosphatase 151 U/L (38-126); Aspartate Amino Transferase 33 U/L (17-59); Bilirubin,Total 0.9 mg/dL (0.2-1.3); Blood Urea Nitrogen 23 mg/dL (9-20); Calcium 7.9 mg/dL (8.4-10.2); Carbon Dioxide > 40 mmol/L (22-30); Chloride 94 mmol/L (98-107); Estimated CRCL calculation 78 ml/min; Estimated Glomerular Filt Rate > 60; Glucose 93 mg/dL (65-110); Potassium 3.3 mmol/L (3.4-5.0); Sodium 138 mmol/L (137-145)
[2022-07-20 07:02] LABS: Glucose Point of Care 85 mg/dl (65-105)
[2022-07-20 08:41] LABS: Glucose Point of Care 98 mg/dl (65-105)
[2022-07-20 09:19] VITALS: PULSE 72
[2022-07-20] MEDS: SACUBITRIL/VALSARTAN 24-26 MG TABLET 1 TAB PO ×2 (09:19→20:16)
[2022-07-20] MEDS: MAGNESIUM OXIDE 400 MG TABLET PO ×2 (09:19→17:37)
[2022-07-20] MEDS: carvediloL 6.25 MG TABLET PO ×2 (09:19→20:14)
[2022-07-20] MEDS: EMPAGLIFLOZIN 10 MG TABLET PO (09:20)
[2022-07-20] MEDS: SPIRONOLACTONE 25 MG TABLET PO (09:20)
[2022-07-20] MEDS: guaiFENesin 600 MG/DEXTROMETHORPHAN 30 MG SR TAB 12 HR 1 TAB PO ×2 (09:20→20:14)
[2022-07-20 12:07] LABS: Glucose Point of Care 171 mg/dl (65-105)
--- NOTE | 2022-07-20 12:45 | PM.IMPN ---
Progress Note: A&P Assessment and Plan (1) COVID: Code(s): U07.1 - COVID-19 Status: Acute Assessment and Plan: Supportive care, stable on room air, check labs (2) Pleural effusion: Code(s): J90 - Pleural effusion, not elsewhere classified Status: Acute Assessment and Plan: Status post thoracentesis with removal of 1L of fluid 07/16 Recheck chest x-ray 07/19 looks worse, follow up pleural fluid studies, pending Chest CT 07/19 showed moderate B/L effusions (3) Acute exacerbation of CHF (congestive heart failure): Code(s): I50.9 - Heart failure, unspecified Status: Acute Assessment and Plan: Echo from 2020 showed an EF of 30-35% with grade 2 diastolic dysfunction, moderate pulmonary hypertension and moderate valvular disease Continue IV diuresis, echo from 07/16 showed EF 20-25%, severe global left ventricular systolic dysfunction, diastolic dysfunction with right ventricular hypokinesis, mild valvular disease and severe pulmonary hypertension noted with a trivial pericardial effusion as well 07/19: Cardiology consult pending, increase diuresis to lasix 40 mg IV TID 07/20: Appreciate cardio consult, cont diuresis (4) Dyslipidemia: Code(s): E78.5 - Hyperlipidemia, unspecified Status: Acute Assessment and Plan: Continue with heart healthy diet (5) Essential (primary) hypertension: Code(s): I10 - Essential (primary) hypertension Status: Acute Assessment and Plan: Continue with Entresto Continue with Coreg Continue with Lasix 40 mg TID IV (6) Diabetes mellitus: Qualifiers: Diabetes mellitus complication status: without complication 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 mellitus 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 use: without soccer referee use Diabetes mellitus type: type 2 Qualified Code(s): E11.9 - Type 2 diabetes mellitus without complications Code(s): E11.9 - Type 2 diabetes mellitus without complications Status: Chronic Assessment and Plan: Accu-Cheks, sliding scale insulin, A1c was 8.9 07/17 (7) Anemia: Code(s): D64.9 - Anemia, unspecified Status: Acute Assessment and Plan: Stable, monitor, appears to be at baseline Plan DVT prophylaxis with lovenox GI prophylaxis not indicated Code status full code Subjective Date/time seen: 07/20/22 12:45 Interval history: 71-year-old male with past medical history significant for heart failure and diabetes is presenting with shortness of breath, found to have pleural effusions and was positive for COVID. Patient states he feels about the same, no overnight events. No fevers. Review of Systems Review of Systems: 12 point review of systems was assessed and was negative except as noted in the HPI Exam Narrative: General: No acute distress, alert and oriented per baseline HEENT: Atraumatic, normocephalic, mucous membranes moist CV: Regular rate and rhythm, S1, S2 Lungs: Diminished at bases, bilaterally with some crackles scattered Abdomen: Soft, nontender, nondistended Extremities: Normal to inspection Skin: No rashes noted, no lesions or wounds seen Psych: Dysthymic, tearful Objective Data Vital Signs Vital Signs: Vital Signs - 24 hr 07/19/22 14:19 07/19/22 18:21 07/19/22 20:59 Temperature 98 F Pulse Rate 81 92 80 Respiratory Rate 16 Blood Pressure 102/61 116/73 Pulse Oximetry 92 Oxygen Delivery 07/19/22 22:08 07/20/22 05:45 07/20/22 09:19 Temperature 97.7 F 97.0 F L Pulse Rate 70 59 L 72 Respiratory Rate 18 20 Blood Pressure 111/81 119/65 Pulse Oximetry 96 99 Oxygen Delivery 07/20/22 08:00 Temperature Pulse Rate Respiratory Rate Blood Pressure Pulse Oximetry Oxygen Delivery Room Air Intake/Output Intake/Output: Intake & Output 07/17/22 07/18/22 07/19/22 07/20/22 23:59 23:59 23:59 23:59 Intake Total 2160 1760 1540 1140 Output Total 2750 1500 3500 2500 Balance -590
[2022-07-20 14:00] VITALS: BP 102/60; PULSE 61; RESP 18; TEMP 36.4; O2SAT 96
[2022-07-20 14:13] LABS: Glucose Pleural Fluid 179 mg/dL; LDH Pleural Fluid 98 U/L; Total Protein Pleural Fluid 3.6 g/dL
--- NOTE | 2022-07-20 15:01 | PM.PNCARD ---
Progress Note: A&P Assessment and Plan (1) COVID: Code(s): U07.1 - COVID-19 Status: Acute Assessment and Plan: treatment per hospitalist (2) Acute on chronic combined systolic and diastolic CHF (congestive heart failure): Code(s): I50.43 - Acute on chronic combined systolic (congestive) and diastolic (congestive) heart failure Status: Acute Assessment and Plan: Presenting with progressive dyspnea on exertion and some lower extremity swelling. Underwent thoracentesis on 07/16 with removal of 1 L of fluid. Chest CT 07/19 showed moderate bilateral pleural effusions. He is feeling better this morning, less short of breath. Agree with IV furosemide continue GTMT for his cardiomyopathy with Entresto, Jardiance, carvedilol. Will add spironolactone daily standing weights strict intake and output daily BMP while on IV diuretics MIGUEL hose (3) Pleural effusion: Code(s): J90 - Pleural effusion, not elsewhere classified Status: Acute Assessment and Plan: status post thoracentesis on 07/16/2022 with 1L of fluid removed. Repeat chest CT today showed moderate bilateral pleural effusions. Agree with IV furosemide 40 mg Q8 hours. (4) Biventricular ICD (implantable cardioverter-defibrillator) in place: Code(s): Z95.810 - Presence of automatic (implantable) cardiac defibrillator Status: Acute Subjective Date/time seen: 07/20/22 09:01 Cardiology follow-up for CHF He is feeling much better today. He does still have a persistent cough but his shortness of breath has improved. Review of Systems Review of Systems: All systems reviewed & are unremarkable except as noted in HPI and below Exam Const: General: comfortable, no acute distress, alert and awake Orientation/consciousness: patient oriented x3 HENMT: Head: normal to inspection Eyes: General: appearance normal, both eyes and all related structures Pupils: Equal, round and reactive pupils present Neck: Neck: normal visual inspection, supple and no JVD Carotids: normal carotid upstroke Resp: Effort & Inspection: abnormal respiratory effort Auscultation: not clear to auscultation bilaterally, rales and diminished lung sounds ( blunted breath sounds bilateral bases) Cardio: Rate: regular rate Rhythm: regular rhythm Heart sounds: S1 normal heart sound present, S2 normal heart sound present and Murmur heart sound present systolic GI: Auscultation: normal bowel sounds Skin: General skin exam: normal color Neuro: General: patient oriented x3 Cranial nerves: Yes Equal, round and reactive pupils present Extrem: General: abnormal to inspection Other: mild bilateral pretibial and pedal edema Psych: Appearance: grossly normal Mental Status: mental status grossly normal Objective Data Vital Signs Vital Signs: Vital Signs - 24 hr 07/19/22 18:21 07/19/22 20:59 07/19/22 22:08 Temperature 36.5 C Pulse Rate 92 80 70 Respiratory Rate 18 Blood Pressure 116/73 111/81 Pulse Oximetry 96 Oxygen Delivery 07/20/22 05:45 07/20/22 09:19 07/20/22 08:00 Temperature 36.1 C L Pulse Rate 59 L 72 Respiratory Rate 20 Blood Pressure 119/65 Pulse Oximetry 99 Oxygen Delivery Room Air Intake/Output Intake/Output: Intake & Output 07/17/22 07/18/22 07/19/22 07/20/22 23:59 23:59 23:59 23:59 Intake Total 2160 1760 1540 1380 Output Total 2750 1500 3500 2500 Balance -590 147 -9223 -1120 Meds/Results Medications: Active Medications Generic Name Dose Route Start Last Admin Trade Name Freq PRN Reason Stop Dose Admin Albuterol 2 puff 07/18/22 05:51 07/18/22 21:28 Albuterol Sulfate (*Sp) Inhaler INHALATION 2 puff Q6HRT PRN Administration Shortness Of Breath Carvedilol 6.25 mg 07/16/22 13:30 07/20/22 09:19 Carvedilol 6.25 Mg Tablet PO 6.25 mg Q12HR CRISTI Administration Dextrose 12.5 gm 07/16/22 13:11 Dextrose 50% 25 Gm/50 Ml Syringe
[2022-07-20 17:28] LABS: Glucose Point of Care 133 mg/dl (65-105)
[2022-07-20] MEDS: ENOXAPARIN 40 MG/0.4 ML SYRINGE SUB-Q (17:37)
[2022-07-20 20:14] VITALS: PULSE 72
[2022-07-20] MEDS: diphenhydrAMINE HCl CAP 25 MG CAPSULE PO (20:14)
[2022-07-20] MEDS: MELATONIN 5 MG TABLET PO (20:16)
[2022-07-20] MEDS: INSULIN GLARGINE (*BKC) 100 UNITS/ML 10 UNITS SUB-Q (20:16)
[2022-07-20 20:30] LABS: Glucose Point of Care 245 mg/dl (65-105)
[2022-07-20 22:12] VITALS: BP 102/58; PULSE 84; RESP 18; TEMP 36.5; O2SAT 96
[2022-07-21] VITALS (8 sets, daily range): BP systolic 95–113; BP diastolic 55–68; PULSE 59–79; RESP 16–18; TEMP 36.2–36.6; O2SAT 93–100
[2022-07-21] MEDS: FUROSEMIDE INJ 40 MG/4 ML VIAL IV PUSH ×2 (01:07→18:09)
[2022-07-21 06:07] LABS: Basophils Percent Auto 0.8 % (0.2-1.2); Eosinophils Absolute Auto 0.2 K/mm3 (0-0.3); Eosinophils Percent Auto 3.4 % (0-4.4); Hematocrit 41.1 % (42.0-52.0); Immature Granulocyte Absolute 0.01 K/mm3 (0.00-0.031); Immature Granulocyte Percent A 0.2 % (0-0.5); Lymphocytes Absolute Auto 0.94 K/mm3 (0.9-3.2); Mean Corpuscular HGB Conc 31.6 g/dl (32-36); Mean Corpuscular Hemoglobin 30.2 pg (26-34); Mean Corpuscular Volume 95.4 fl (80-100); Monocytes Absolute Auto 0.5 K/mm3 (0.1-0.6); Monocytes Percent Auto 9.4 % (2.6-8.5); Neutrophils Absolute Auto 3.6 K/mm3 (1.3-6.7); Neutrophils Percent Auto 68.2 % (45.5-73.1); Platelet Count Result 220 k/mm3 (150-375); Red Blood Count 4.31 M/mm3 (4.6-6.20); Red Cell Distribution Width 14.1 % (11.5-14.5); White Blood Count 5.2 K/mm3 (4.5-10.0)
[2022-07-21 06:21] LABS: Alanine Aminotransferase 25 U/L (6-50); Albumin Level 3.5 g/dL (3.5-5.1); Alkaline Phosphatase 148 U/L (38-126); Anion Gap 3 mmol/L (8-16); Aspartate Amino Transferase 29 U/L (17-59); Bilirubin,Total 0.8 mg/dL (0.2-1.3); Blood Urea Nitrogen 25 mg/dL (9-20); Calcium 8.1 mg/dL (8.4-10.2); Carbon Dioxide 39 mmol/L (22-30); Chloride 96 mmol/L (98-107); Estimated CRCL calculation 78 ml/min; Estimated Glomerular Filt Rate > 60; Glucose 66 mg/dL (65-110); Potassium 3.3 mmol/L (3.4-5.0); Sodium 138 mmol/L (137-145)
[2022-07-21 07:49] LABS: Glucose Point of Care 73 mg/dl (65-105)
[2022-07-21] MEDS: SACUBITRIL/VALSARTAN 24-26 MG TABLET 1 TAB PO ×2 (09:18→21:16)
[2022-07-21] MEDS: guaiFENesin 600 MG/DEXTROMETHORPHAN 30 MG SR TAB 12 HR 1 TAB PO ×2 (09:18→21:16)
[2022-07-21] MEDS: EMPAGLIFLOZIN 10 MG TABLET PO (09:19)
[2022-07-21] MEDS: MAGNESIUM OXIDE 400 MG TABLET PO ×2 (09:19→18:01)
--- NOTE | 2022-07-21 10:29 | PM.PNCARD ---
Progress Note: A&P Assessment and Plan (1) COVID: Code(s): U07.1 - COVID-19 Status: Acute Assessment and Plan: treatment per hospitalist (2) Acute on chronic combined systolic and diastolic CHF (congestive heart failure): Code(s): I50.43 - Acute on chronic combined systolic (congestive) and diastolic (congestive) heart failure Status: Acute Assessment and Plan: Presenting with progressive dyspnea on exertion and some lower extremity swelling. Underwent thoracentesis on 07/16 with removal of 1 L of fluid. Chest CT 07/19 showed moderate bilateral pleural effusions. He is feeling better this morning, less short of breath. Agree with IV furosemide continue GTMT for his cardiomyopathy with Entresto, Jardiance, carvedilol. daily standing weights strict intake and output Will lower his IV diuresis to 40 mg IV q.12 hours. Will replace his potassium with 40 mEq p.o. x1 MIGUEL hose (3) Pleural effusion: Code(s): J90 - Pleural effusion, not elsewhere classified Status: Acute Assessment and Plan: status post thoracentesis on 07/16/2022 with 1L of fluid removed. Repeat chest CT today showed moderate bilateral pleural effusions. Agree with IV furosemide but will reduce frequency to 40 mg IV q.12 (4) Biventricular ICD (implantable cardioverter-defibrillator) in place: Code(s): Z95.810 - Presence of automatic (implantable) cardiac defibrillator Status: Acute Subjective Date/time seen: 07/21/22 10:29 Interval history: 71-year-old male with past medical history significant for heart failure and diabetes is presenting with shortness of breath, found to have pleural effusions and was positive for COVID. Date of service 07/21/2022: He is breathing better and more easily. No chest pain. Review of Systems Review of Systems: All systems reviewed & are unremarkable except as noted in HPI and below Constitutional: Constitutional: Denies body ache(s) Eyes: Eyes: Denies blurry vision Cardiovascular: Cardiovascular: Denies chest pain Respiratory: Respiratory: Denies chest congestion Exam Const: General: comfortable, no acute distress, alert and awake Orientation/consciousness: patient oriented x3 HENMT: Head: normal to inspection Eyes: General: appearance normal, both eyes and all related structures Pupils: Equal, round and reactive pupils present Neck: Neck: normal visual inspection, supple and no JVD Carotids: normal carotid upstroke Resp: Effort & Inspection: abnormal respiratory effort Auscultation: not clear to auscultation bilaterally, rales and diminished lung sounds ( blunted breath sounds bilateral bases) Cardio: Rate: regular rate Rhythm: regular rhythm Heart sounds: S1 normal heart sound present, S2 normal heart sound present and Murmur heart sound present systolic GI: Auscultation: normal bowel sounds Skin: General skin exam: normal color Neuro: General: patient oriented x3 Cranial nerves: Yes Equal, round and reactive pupils present Extrem: General: abnormal to inspection Other: mild bilateral pretibial and pedal edema Psych: Appearance: grossly normal Mental Status: mental status grossly normal Objective Data Vital Signs Vital Signs: Vital Signs - 24 hr 07/20/22 14:00 07/20/22 20:14 07/20/22 20:00 Temperature 36.4 C Pulse Rate 61 72 Respiratory Rate 18 Blood Pressure 102/60 Pulse Oximetry 96 Oxygen Delivery Room Air 07/20/22 22:12 07/21/22 06:00 07/21/22 09:15 Temperature 36.5 C 36.2 C L Pulse Rate 84 59 L 63 Respiratory Rate 18 18 Blood Pressure 102/58 L 104/61 95/55 L Pulse Oximetry 96 96 93 Oxygen Delivery Intake/Output Intake/Output: Intake & Output 07/18/22 07/19/22 07/20/22 07/21/22 23:59 23:59 23:59 23:59 Intake Total 1760 1540 1680 640 Output Total 1500 3500 4100 Balance 987 -1050 -2216 640 Meds/Results Medications: Active Medications Generic Name Do
[2022-07-21 11:47] LABS: Glucose Point of Care 164 mg/dl (65-105)
[2022-07-21] MEDS: POTASSIUM CHLORIDE 20 MEQ TABLET 40 MEQ PO (12:43)
[2022-07-21] MEDS: carvediloL 6.25 MG TABLET PO ×2 (12:43→21:16)
[2022-07-21] MEDS: SPIRONOLACTONE 25 MG TABLET PO (12:43)
--- NOTE | 2022-07-21 13:08 | PM.IMPN ---
Progress Note: A&P Assessment and Plan (1) COVID: Code(s): U07.1 - COVID-19 Status: Acute Assessment and Plan: Supportive care, stable on room air, check labs, recheck CRP 07/22 (2) Pleural effusion: Code(s): J90 - Pleural effusion, not elsewhere classified Status: Acute Assessment and Plan: Status post thoracentesis with removal of 1L of fluid 07/16 Recheck chest x-ray 07/19 looks worse, follow up pleural fluid studies, pending Chest CT 07/19 showed moderate B/L effusions Recheck CXR 07/22 pending (3) Acute exacerbation of CHF (congestive heart failure): Code(s): I50.9 - Heart failure, unspecified Status: Acute Assessment and Plan: Echo from 2020 showed an EF of 30-35% with grade 2 diastolic dysfunction, moderate pulmonary hypertension and moderate valvular disease Continue IV diuresis, echo from 07/16 showed EF 20-25%, severe global left ventricular systolic dysfunction, diastolic dysfunction with right ventricular hypokinesis, mild valvular disease and severe pulmonary hypertension noted with a trivial pericardial effusion as well 07/19: Cardiology consult pending, increase diuresis to lasix 40 mg IV TID 07/20: Appreciate cardio consult, cont diuresis 07/21: Decrease diuresis today from TID to BID, monitor (4) Dyslipidemia: Code(s): E78.5 - Hyperlipidemia, unspecified Status: Acute Assessment and Plan: Continue with heart healthy diet (5) Essential (primary) hypertension: Code(s): I10 - Essential (primary) hypertension Status: Acute Assessment and Plan: Continue with Entresto Continue with Coreg Continue with Lasix 40 mg BID IV (6) Diabetes mellitus: Qualifiers: Diabetes mellitus type: type 2 Diabetes mellitus parts counterman insulin use: without parts counterman use Diabetes mellitus complication status: without complication Qualified Code(s): E11.9 - Type 2 diabetes mellitus without complications Code(s): E11.9 - Type 2 diabetes mellitus without complications Status: Chronic Assessment and Plan: Accu-Cheks, sliding scale insulin, A1c was 8.9 07/17 (7) Anemia: Code(s): D64.9 - Anemia, unspecified Status: Acute Assessment and Plan: Stable, monitor, appears to be at baseline Plan DVT prophylaxis with lovenox GI prophylaxis not indicated Code status full code Subjective Date/time seen: 07/21/22 13:08 Interval history: 71-year-old male with past medical history significant for heart failure and diabetes is presenting with shortness of breath, found to have pleural effusions and was positive for COVID. No overnight events noted. No chest pain. No nausea, vomiting or diarrhea. No fevers or chills. States his breathing is much better. The melatonin give him nightmares, he is requesting Benadryl tonight. Review of Systems Review of Systems: 12 point review of systems was assessed and was negative except as noted in the HPI Exam Narrative: General: No acute distress, alert and oriented per baseline HEENT: Atraumatic, normocephalic, mucous membranes moist CV: Regular rate and rhythm, S1, S2 Lungs: Diminished at bases, bilaterally with some crackles scattered Abdomen: Soft, nontender, nondistended Extremities: Normal to inspection Skin: No rashes noted, no lesions or wounds seen Psych: Dysthymic, tearful Objective Data Vital Signs Vital Signs: Vital Signs - 24 hr 07/20/22 14:00 07/20/22 20:14 07/20/22 20:00 Temperature 97.6 F Pulse Rate 61 72 Respiratory Rate 18 Blood Pressure 102/60 Pulse Oximetry 96 Oxygen Delivery Room Air 07/20/22 22:12 07/21/22 06:00 07/21/22 09:15 Temperature 97.7 F 97.2 F L Pulse Rate 84 59 L 63 Respiratory Rate 18 18 Blood Pressure 102/58 L 104/61 95/55 L Pulse Oximetry 96 96 93 Oxygen Delivery 07/21/22 09:20 07/21/22 12:40 07/21/22 12:43 Temperature Pulse Rate
[2022-07-21 17:04] LABS: Glucose Point of Care 174 mg/dl (65-105)
[2022-07-21] MEDS: ENOXAPARIN 40 MG/0.4 ML SYRINGE SUB-Q (18:01)
[2022-07-21 20:35] LABS: Glucose Point of Care 192 mg/dl (65-105)
[2022-07-21] MEDS: diphenhydrAMINE HCl CAP 25 MG CAPSULE PO (21:16)
[2022-07-21] MEDS: INSULIN GLARGINE (*BKC) 100 UNITS/ML 10 UNITS SUB-Q (21:17)
[2022-07-22 05:31] LABS: Basophils Percent Auto 0.5 % (0.2-1.2); Eosinophils Absolute Auto 0.2 K/mm3 (0-0.3); Eosinophils Percent Auto 3.4 % (0-4.4); Hematocrit 40.4 % (42.0-52.0); Hemoglobin 12.9 g/dL (14.0-18.0); Immature Granulocyte Absolute 0.03 K/mm3 (0.00-0.031); Immature Granulocyte Percent A 0.5 % (0-0.5); Lymphocytes Absolute Auto 1.06 K/mm3 (0.9-3.2); Lymphocytes Percent Auto 18.9 % (18.3-44.2); Mean Corpuscular HGB Conc 31.9 g/dl (32-36); Mean Corpuscular Hemoglobin 30.4 pg (26-34); Mean Corpuscular Volume 95.3 fl (80-100); Mean Platelet Volume 10.6 fl (7.4-10.4); Monocytes Absolute Auto 0.5 K/mm3 (0.1-0.6); Monocytes Percent Auto 9.1 % (2.6-8.5); Neutrophils Absolute Auto 3.8 K/mm3 (1.3-6.7); Neutrophils Percent Auto 67.6 % (45.5-73.1); Platelet Count Result 226 k/mm3 (150-375); Red Blood Count 4.24 M/mm3 (4.6-6.20); Red Cell Distribution Width 14.2 % (11.5-14.5); White Blood Count 5.6 K/mm3 (4.5-10.0)
[2022-07-22 05:42] VITALS: BP 104/59; PULSE 61; RESP 18; TEMP 36.7; O2SAT 94
[2022-07-22 05:49] LABS: Alanine Aminotransferase 27 U/L (6-50); Albumin Level 3.5 g/dL (3.5-5.1); Alkaline Phosphatase 142 U/L (38-126); Aspartate Amino Transferase 35 U/L (17-59); Bilirubin,Total 0.7 mg/dL (0.2-1.3); Blood Urea Nitrogen 26 mg/dL (9-20); CRP 1.4 mg/dL (<1.0); Carbon Dioxide > 40 mmol/L (22-30); Chloride 96 mmol/L (98-107); Estimated CRCL calculation 58 ml/min; Estimated Glomerular Filt Rate > 60; Glucose 73 mg/dL (65-110); Sodium 137 mmol/L (137-145)
[2022-07-22] MEDS: FUROSEMIDE INJ 40 MG/4 ML VIAL IV PUSH (06:21)
--- NOTE | 2022-07-22 08:22 | PM.IMPN ---
Progress Note: A&P Assessment and Plan (1) COVID: Code(s): U07.1 - COVID-19 Status: Acute Assessment and Plan: Supportive care, stable on room air, check labs, recheck CRP 07/22 significantly improved, down to 1.4 from 4.6 Recheck CRP 07/24 (2) Pleural effusion: Code(s): J90 - Pleural effusion, not elsewhere classified Status: Acute Assessment and Plan: Status post thoracentesis with removal of 1L of fluid 07/16 Recheck chest x-ray 07/19 looks worse, follow up pleural fluid studies, pending Chest CT 07/19 showed moderate B/L effusions Recheck CXR 07/22 essentially unchanged, consider pulm consult or repeat thoracentesis vs discharge and f/u CXR outpatient (3) Acute exacerbation of CHF (congestive heart failure): Code(s): I50.9 - Heart failure, unspecified Status: Acute Assessment and Plan: Echo from 2020 showed an EF of 30-35% with grade 2 diastolic dysfunction, moderate pulmonary hypertension and moderate valvular disease Continue IV diuresis, echo from 07/16 showed EF 20-25%, severe global left ventricular systolic dysfunction, diastolic dysfunction with right ventricular hypokinesis, mild valvular disease and severe pulmonary hypertension noted with a trivial pericardial effusion as well 07/19: Cardiology consult pending, increase diuresis to lasix 40 mg IV TID 07/20: Appreciate cardio consult, cont diuresis 07/21: Decrease diuresis today from TID to BID, monitor 07/22: Diuresing well, down 2L yesterday, BUN/creat/CO2 rising, decrease lasix to daily, CXR unchanged (4) Dyslipidemia: Code(s): E78.5 - Hyperlipidemia, unspecified Status: Acute Assessment and Plan: Continue with heart healthy diet (5) Essential (primary) hypertension: Code(s): I10 - Essential (primary) hypertension Status: Acute Assessment and Plan: Continue with Entresto, aldactone and coreg Blood pressures reviewed 07/22 On the lower side while diuresing, decrease coreg to 3.125 mg temporarily 07/22 (6) Diabetes mellitus: Qualifiers: Diabetes mellitus complication status: without complication Diabetes mellitus saloon keeper insulin use: without assisted use Diabetes mellitus type: type 2 Qualified Code(s): E11.9 - Type 2 diabetes mellitus without complications Code(s): E11.9 - Type 2 diabetes mellitus without complications Status: Chronic Assessment and Plan: Accu-Cheks, sliding scale insulin, A1c was 8.9 07/17 Blood glucose reviewed 07/22 (7) Anemia: Code(s): D64.9 - Anemia, unspecified Status: Acute Assessment and Plan: Stable, monitor, appears to be at baseline Plan DVT prophylaxis with lovenox GI prophylaxis not indicated Code status full code Subjective Date/time seen: 07/22/22 08:22 Interval history: 71-year-old male with past medical history significant for heart failure and diabetes is presenting with shortness of breath, found to have pleural effusions and was positive for COVID. No overnight events noted. No chest pain. No nausea, vomiting or diarrhea. No fevers or chills. Feels a little better today than yesterday, significant UOP per his report. Review of Systems Review of Systems: 12 point review of systems was assessed and was negative except as noted in the HPI Exam Narrative: General: No acute distress, alert and oriented per baseline HEENT: Atraumatic, normocephalic, mucous membranes moist CV: Regular rate and rhythm, S1, S2 Lungs: Diminished at bases, bilaterally with some crackles scattered Abdomen: Soft, nontender, nondistended Extremities: Normal to inspection Skin: No rashes noted, no lesions or wounds seen Psych: Dysthymic, good judgment/insight Objective Data Vital Signs Vital Signs: Vital Signs - 24 hr 07/21/22 09:15 07/21/22 09:20 07/21/22 12:40 Temperature Pulse Rate 63 66 Respiratory Rate Blood Pressure 95/55 L 108/61
[2022-07-22 08:33] LABS: Glucose Point of Care 82 mg/dl (65-105)
[2022-07-22] MEDS: MAGNESIUM OXIDE 400 MG TABLET PO ×2 (08:44→17:27)
[2022-07-22] MEDS: SPIRONOLACTONE 25 MG TABLET PO (08:45)
[2022-07-22] MEDS: SACUBITRIL/VALSARTAN 24-26 MG TABLET 1 TAB PO ×2 (08:45→20:18)
[2022-07-22 08:46] VITALS: PULSE 80; RESP 18; O2SAT 94
[2022-07-22] MEDS: carvediloL 3.125 MG TABLET PO ×2 (08:46→20:18)
--- NOTE | 2022-07-22 09:05 | PM.PNCARD ---
Progress Note: A&P Assessment and Plan (1) COVID: Code(s): U07.1 - COVID-19 Status: Acute Assessment and Plan: treatment per hospitalist (2) Acute on chronic combined systolic and diastolic CHF (congestive heart failure): Code(s): I50.43 - Acute on chronic combined systolic (congestive) and diastolic (congestive) heart failure Status: Acute Assessment and Plan: Presenting with progressive dyspnea on exertion and some lower extremity swelling. Underwent thoracentesis on 07/16 with removal of 1 L of fluid. Chest CT 07/19 showed moderate bilateral pleural effusions. He is feeling better this morning, less short of breath. Agree with IV furosemide continue GTMT for his cardiomyopathy with Entresto, Jardiance, carvedilol. daily standing weights strict intake and output Continue with IV furosemide for today - perhaps shift back to p.o. furosemide tomorrow MIGUEL cagle (3) Pleural effusion: Code(s): J90 - Pleural effusion, not elsewhere classified Status: Acute Assessment and Plan: status post thoracentesis on 07/16/2022 with 1L of fluid removed. Repeat chest CT today showed moderate bilateral pleural effusions. Agree with IV furosemide but will reduce frequency to 40 mg IV q.12 (4) Biventricular ICD (implantable cardioverter-defibrillator) in place: Code(s): Z95.810 - Presence of automatic (implantable) cardiac defibrillator Status: Acute Subjective Date/time seen: 07/22/22 09:05 Cardiology follow up for CHF He feels better today. Breathing continues to improve. Still has some lower extremity edema. Review of Systems Review of Systems: All systems reviewed & are unremarkable except as noted in HPI and below Constitutional: Constitutional: Denies body ache(s) Eyes: Eyes: Denies blurry vision Cardiovascular: Cardiovascular: Denies chest pain Respiratory: Respiratory: Denies chest congestion Exam Const: General: comfortable, no acute distress, alert and awake Orientation/consciousness: patient oriented x3 HENMT: Head: normal to inspection Eyes: General: appearance normal, both eyes and all related structures Pupils: Equal, round and reactive pupils present Neck: Neck: normal visual inspection, supple and no JVD Carotids: normal carotid upstroke Resp: Effort & Inspection: normal respiratory effort and able to speak in complete sentences Auscultation: not clear to auscultation bilaterally, rales and diminished lung sounds ( blunted breath sounds bilateral bases) Cardio: Rate: regular rate Rhythm: regular rhythm Heart sounds: S1 normal heart sound present, S2 normal heart sound present and Murmur heart sound present systolic GI: Auscultation: normal bowel sounds Skin: General skin exam: normal color Neuro: General: patient oriented x3 Cranial nerves: Yes Equal, round and reactive pupils present Extrem: General: abnormal to inspection Other: mild bilateral pretibial edema Psych: Appearance: grossly normal Mental Status: mental status grossly normal Objective Data Vital Signs Vital Signs: Vital Signs - 24 hr 07/21/22 09:15 07/21/22 09:20 07/21/22 12:40 Temperature Pulse Rate 63 66 Respiratory Rate Blood Pressure 95/55 L 108/61 Pulse Oximetry 93 95 Oxygen Delivery Room Air 07/21/22 12:43 07/21/22 14:25 07/21/22 17:59 Temperature 36.6 C Pulse Rate 66 64 79 Respiratory Rate 16 Blood Pressure 113/68 103/63 Pulse Oximetry 100 100 Oxygen Delivery 07/21/22 20:54 07/21/22 21:16 07/22/22 05:42 Temperature 36.6 C 36.7 C Pulse Rate 78 78 61 Respiratory Rate 17 18 Blood Pressure 101/59 L 104/59 L Pulse Oximetry 97 94 Oxygen Delivery 07/22/22 08:46 Temperature Pulse Rate 80 Respiratory Rate Blood Pressure Pulse Oximetry Oxygen Delivery Intake/Output Intake/Output: Intake & Output 07/19/22 07/20/22 07/21/22 07/22/22 23:59 23:59 23:59 23:59 Intake Tot
[2022-07-22 09:09] LABS: Albumin Pleural Fluid 2.3 g/dL
[2022-07-22] MEDS: ALBUTEROL SULFATE (*SP) INHALER 2 PUFF INHALATION (09:21)
[2022-07-22 09:30] VITALS: PULSE 79; RESP 18
[2022-07-22 12:03] LABS: Glucose Point of Care 313 mg/dl (65-105)
[2022-07-22] MEDS: EMPAGLIFLOZIN 10 MG TABLET PO (12:13)
[2022-07-22] MEDS: INSULIN ASPART (*BKC) 100 UNITS/ML SUB-Q (12:13)
[2022-07-22 14:00] VITALS: BP 102/55; PULSE 66; RESP 18; TEMP 36.4; O2SAT 97
[2022-07-22 17:15] LABS: Glucose Point of Care 125 mg/dl (65-105)
[2022-07-22] MEDS: ENOXAPARIN 40 MG/0.4 ML SYRINGE SUB-Q (17:27)
[2022-07-22] MEDS: INSULIN GLARGINE (*BKC) 100 UNITS/ML 10 UNITS SUB-Q (20:15)
[2022-07-22 20:18] VITALS: PULSE 70
[2022-07-22] MEDS: diphenhydrAMINE HCl CAP 25 MG CAPSULE PO (20:18)
[2022-07-22 20:23] LABS: Glucose Point of Care 188 mg/dl (65-105)
[2022-07-22 20:50] VITALS: BP 102/74; PULSE 66; RESP 18; TEMP 36.8; O2SAT 96
[2022-07-23] VITALS (7 sets, daily range): BP systolic 102–114; BP diastolic 48–68; PULSE 68–83; RESP 14–19; TEMP 36.4–37; O2SAT 95–100
[2022-07-23 06:02] LABS: Basophils Absolute Auto 0.1 K/mm3 (0.0-0.1); Basophils Percent Auto 0.9 % (0.2-1.2); Eosinophils Absolute Auto 0.3 K/mm3 (0-0.3); Eosinophils Percent Auto 4.1 % (0-4.4); Hematocrit 39.8 % (42.0-52.0); Hemoglobin 12.7 g/dL (14.0-18.0); Immature Granulocyte Absolute 0.02 K/mm3 (0.00-0.031); Immature Granulocyte Percent A 0.3 % (0-0.5); Lymphocytes Absolute Auto 1.14 K/mm3 (0.9-3.2); Lymphocytes Percent Auto 17.8 % (18.3-44.2); Mean Corpuscular HGB Conc 31.9 g/dl (32-36); Mean Corpuscular Hemoglobin 30.6 pg (26-34); Mean Corpuscular Volume 95.9 fl (80-100); Mean Platelet Volume 10.7 fl (7.4-10.4); Monocytes Absolute Auto 0.5 K/mm3 (0.1-0.6); Neutrophils Absolute Auto 4.4 K/mm3 (1.3-6.7); Neutrophils Percent Auto 68.9 % (45.5-73.1); Platelet Count Result 223 k/mm3 (150-375); Red Blood Count 4.15 M/mm3 (4.6-6.20); Red Cell Distribution Width 14.1 % (11.5-14.5); White Blood Count 6.4 K/mm3 (4.5-10.0)
[2022-07-23 06:08] LABS: Alanine Aminotransferase 27 U/L (6-50); Albumin Level 3.5 g/dL (3.5-5.1); Alkaline Phosphatase 142 U/L (38-126); Anion Gap 3 mmol/L (8-16); Aspartate Amino Transferase 35 U/L (17-59); Bilirubin,Total 0.8 mg/dL (0.2-1.3); Blood Urea Nitrogen 27 mg/dL (9-20); CRP 1.1 mg/dL (<1.0); Carbon Dioxide 38 mmol/L (22-30); Chloride 97 mmol/L (98-107); Estimated CRCL calculation 70 ml/min; Estimated Glomerular Filt Rate > 60; Glucose 107 mg/dL (65-110); Potassium 4.3 mmol/L (3.4-5.0); Sodium 138 mmol/L (137-145)
[2022-07-23 08:34] LABS: Glucose Point of Care 99 mg/dl (65-105)
[2022-07-23] MEDS: FUROSEMIDE INJ 40 MG/4 ML VIAL IV PUSH (08:48)
[2022-07-23] MEDS: SACUBITRIL/VALSARTAN 24-26 MG TABLET 1 TAB PO ×2 (08:48→20:22)
[2022-07-23] MEDS: EMPAGLIFLOZIN 10 MG TABLET PO (08:49)
[2022-07-23] MEDS: MAGNESIUM OXIDE 400 MG TABLET PO ×2 (08:49→17:07)
[2022-07-23] MEDS: SPIRONOLACTONE 25 MG TABLET PO (08:49)
[2022-07-23] MEDS: carvediloL 3.125 MG TABLET PO ×2 (08:52→20:22)
--- NOTE | 2022-07-23 09:39 | PC.NURSE ---
07/23/22 08:49am During my assessment I asked the patient how he was doing. He stated he was feeling depressed and is feeling like he wants to hurt himself. He stated he feels sad because he's isolated in his room due to COVID.
--- NOTE | 2022-07-23 09:48 | PC.NURSE ---
07/23/22 08:49 During my assessment I asked how the patient was doing and he stated he was feeling depressed and had thoughts of hurting himself but no ideation of hurting himself. Stated he's depressed from being isolated in his room from having COVID. Talked to Dr. Brown, stated he will see the patient shortly.
--- NOTE | 2022-07-23 10:25 | PCNWS ---
Weekly nutritional screen. Patient is tolerating current heart healthy diet with adequate intake 75-100% of meals. No nutritional needs at this time.
[2022-07-23 12:10] LABS: Glucose Point of Care 106 mg/dl (65-105)
--- NOTE | 2022-07-23 14:08 | PM.IMPN ---
Progress Note: A&P Assessment and Plan (1) COVID: Code(s): U07.1 - COVID-19 Status: Acute Assessment and Plan: Supportive care, stable on room air, check labs, recheck CRP 07/22 significantly improved, down to 1.4 from 4.6 Recheck CRP 07/2407/23/2022 interval history: patient shortness of breath with pleural effusion status post thoracentesis with history of cardiomyopathy seen by cardiology being treated with GDMT to help diurese the patient, patient clinical symptoms are improved feels weak, will continue to diurese the patient, in terms of COVID patient remains stable not requiring any oxygen, will repeat chest x-ray tomorrow, will reassess tomorrow further recommendation to follow. (2) Pleural effusion: Code(s): J90 - Pleural effusion, not elsewhere classified Status: Acute Assessment and Plan: Status post thoracentesis with removal of 1L of fluid 07/16 Recheck chest x-ray 07/19 looks worse, follow up pleural fluid studies, pending Chest CT 07/19 showed moderate B/L effusions Recheck CXR 07/22 essentially unchanged, consider pulm consult or repeat thoracentesis vs discharge and f/u CXR outpatient (3) Acute exacerbation of CHF (congestive heart failure): Code(s): I50.9 - Heart failure, unspecified Status: Acute Assessment and Plan: Echo from 2020 showed an EF of 30-35% with grade 2 diastolic dysfunction, moderate pulmonary hypertension and moderate valvular disease Continue IV diuresis, echo from 07/16 showed EF 20-25%, severe global left ventricular systolic dysfunction, diastolic dysfunction with right ventricular hypokinesis, mild valvular disease and severe pulmonary hypertension noted with a trivial pericardial effusion as well 07/19: Cardiology consult pending, increase diuresis to lasix 40 mg IV TID 07/20: Appreciate cardio consult, cont diuresis 07/21: Decrease diuresis today from TID to BID, monitor 07/22: Diuresing well, down 2L yesterday, BUN/creat/CO2 rising, decrease lasix to daily, CXR unchanged (4) Dyslipidemia: Code(s): E78.5 - Hyperlipidemia, unspecified Status: Acute Assessment and Plan: Continue with heart healthy diet (5) Essential (primary) hypertension: Code(s): I10 - Essential (primary) hypertension Status: Acute Assessment and Plan: Continue with Entresto, aldactone and coreg Blood pressures reviewed 07/22 On the lower side while diuresing, decrease coreg to 3.125 mg temporarily 07/22 (6) Diabetes mellitus: Qualifiers: Diabetes mellitus complication status: without complication Diabetes mellitus residential insulin use: without exterminator helper use Diabetes mellitus type: type 2 Qualified Code(s): E11.9 - Type 2 diabetes mellitus without complications Code(s): E11.9 - Type 2 diabetes mellitus without complications Status: Chronic Assessment and Plan: Accu-Cheks, sliding scale insulin, A1c was 8.9 07/17 Blood glucose reviewed 07/22 (7) Anemia: Code(s): D64.9 - Anemia, unspecified Status: Acute Assessment and Plan: Stable, monitor, appears to be at baseline Plan DVT prophylaxis with lovenox GI prophylaxis not indicated Code status full code Subjective Date/time seen: 07/23/22 14:08 07/23/2022 interval history: patient shortness of breath with pleural effusion status post thoracentesis with history of cardiomyopathy seen by cardiology being treated with GDMT to help diurese the patient, patient clinical symptoms are improved feels weak, will continue to diurese the patient, in terms of COVID patient remains stable not requiring any oxygen, will repeat chest x-ray tomorrow, will reassess tomorrow further recommendation to follow. Review of Systems Review of Systems: All systems reviewed & are unremarkable except as noted in HPI and below Exam Narrative: Patient is comfortable, NAD HEENT: eyes are clear and none icteric LUNGS: Normal re
[2022-07-23] MEDS: ENOXAPARIN 40 MG/0.4 ML SYRINGE SUB-Q (17:07)
[2022-07-23 17:19] LABS: Glucose Point of Care 225 mg/dl (65-105)
[2022-07-23] MEDS: INSULIN ASPART (*BKC) 100 UNITS/ML SUB-Q (17:29)
[2022-07-23] MEDS: diphenhydrAMINE HCl CAP 25 MG CAPSULE PO (20:22)
[2022-07-23] MEDS: INSULIN GLARGINE (*BKC) 100 UNITS/ML 10 UNITS SUB-Q (20:25)
[2022-07-23 20:30] LABS: Glucose Point of Care 131 mg/dl (65-105)
[2022-07-24 04:29] VITALS: BP 100/51; PULSE 64; RESP 18; TEMP 37; O2SAT 98
[2022-07-24 06:02] LABS: Basophils Absolute Auto 0.1 K/mm3 (0.0-0.1); Basophils Percent Auto 0.9 % (0.2-1.2); Eosinophils Absolute Auto 0.2 K/mm3 (0-0.3); Eosinophils Percent Auto 4.1 % (0-4.4); Hematocrit 40.7 % (42.0-52.0); Immature Granulocyte Absolute 0.02 K/mm3 (0.00-0.031); Immature Granulocyte Percent A 0.3 % (0-0.5); Lymphocytes Absolute Auto 1.09 K/mm3 (0.9-3.2); Lymphocytes Percent Auto 18.7 % (18.3-44.2); Mean Corpuscular HGB Conc 31.9 g/dl (32-36); Mean Corpuscular Hemoglobin 30.7 pg (26-34); Mean Platelet Volume 10.4 fl (7.4-10.4); Monocytes Absolute Auto 0.5 K/mm3 (0.1-0.6); Monocytes Percent Auto 8.7 % (2.6-8.5); Neutrophils Absolute Auto 3.9 K/mm3 (1.3-6.7); Neutrophils Percent Auto 67.3 % (45.5-73.1); Platelet Count Result 237 k/mm3 (150-375); Red Blood Count 4.24 M/mm3 (4.6-6.20); Red Cell Distribution Width 13.9 % (11.5-14.5); White Blood Count 5.8 K/mm3 (4.5-10.0)
[2022-07-24 06:19] LABS: Alanine Aminotransferase 29 U/L (6-50); Albumin Level 3.7 g/dL (3.5-5.1); Alkaline Phosphatase 146 U/L (38-126); Anion Gap 4 mmol/L (8-16); Aspartate Amino Transferase 37 U/L (17-59); Blood Urea Nitrogen 28 mg/dL (9-20); Calcium 8.3 mg/dL (8.4-10.2); Carbon Dioxide 35 mmol/L (22-30); Chloride 97 mmol/L (98-107); Estimated CRCL calculation 70 ml/min; Estimated Glomerular Filt Rate > 60; Glucose 93 mg/dL (65-110); Potassium 4.5 mmol/L (3.4-5.0); Sodium 136 mmol/L (137-145)
[2022-07-24 08:32] LABS: Glucose Point of Care 86 mg/dl (65-105)
[2022-07-24] MEDS: SPIRONOLACTONE 25 MG TABLET PO (09:10)
[2022-07-24] MEDS: MAGNESIUM OXIDE 400 MG TABLET PO ×2 (09:10→17:22)
[2022-07-24] MEDS: FUROSEMIDE INJ 40 MG/4 ML VIAL IV PUSH (09:10)
[2022-07-24] MEDS: EMPAGLIFLOZIN 10 MG TABLET PO (09:10)
[2022-07-24] MEDS: SACUBITRIL/VALSARTAN 24-26 MG TABLET 1 TAB PO ×2 (09:10→21:52)
[2022-07-24 09:11] VITALS: PULSE 55
[2022-07-24] MEDS: carvediloL 3.125 MG TABLET PO ×2 (09:11→21:52)
--- NOTE | 2022-07-24 11:58 | PM.IMPN ---
Progress Note: A&P Assessment and Plan (1) COVID: Code(s): U07.1 - COVID-19 Status: Acute Assessment and Plan: Supportive care, stable on room air, check labs, recheck CRP 07/22 significantly improved, down to 1.4 from 4.6 Recheck CRP 07/2407/24/2022 interval history: patient shortness of breath with pleural effusion status post thoracentesis with history of cardiomyopathy seen by cardiology being treated with GDMT to help diurese the patient, patient clinical symptoms are improved feels weak, will continue to diurese the patient, in terms of COVID patient remains stable not requiring any oxygen, repeat chest x-ray today shows right moderate effusion, will continue to diurese the patient, will reassess Tuesday patient may need thoracentesis further recommendation to follow. (2) Pleural effusion: Code(s): J90 - Pleural effusion, not elsewhere classified Status: Acute Assessment and Plan: Status post thoracentesis with removal of 1L of fluid 07/16 Recheck chest x-ray 07/19 looks worse, follow up pleural fluid studies, pending Chest CT 07/19 showed moderate B/L effusions Recheck CXR 07/22 essentially unchanged, consider pulm consult or repeat thoracentesis vs discharge and f/u CXR outpatient (3) Acute exacerbation of CHF (congestive heart failure): Code(s): I50.9 - Heart failure, unspecified Status: Acute Assessment and Plan: Echo from 2020 showed an EF of 30-35% with grade 2 diastolic dysfunction, moderate pulmonary hypertension and moderate valvular disease Continue IV diuresis, echo from 07/16 showed EF 20-25%, severe global left ventricular systolic dysfunction, diastolic dysfunction with right ventricular hypokinesis, mild valvular disease and severe pulmonary hypertension noted with a trivial pericardial effusion as well 07/19: Cardiology consult pending, increase diuresis to lasix 40 mg IV TID 07/20: Appreciate cardio consult, cont diuresis 07/21: Decrease diuresis today from TID to BID, monitor 07/22: Diuresing well, down 2L yesterday, BUN/creat/CO2 rising, decrease lasix to daily, CXR unchanged (4) Dyslipidemia: Code(s): E78.5 - Hyperlipidemia, unspecified Status: Acute Assessment and Plan: Continue with heart healthy diet (5) Essential (primary) hypertension: Code(s): I10 - Essential (primary) hypertension Status: Acute Assessment and Plan: Continue with Entresto, aldactone and coreg Blood pressures reviewed 07/22 On the lower side while diuresing, decrease coreg to 3.125 mg temporarily 07/22 (6) Diabetes mellitus: Qualifiers: Diabetes mellitus type: type 2 Diabetes mellitus mcfp insulin use: without termite exterminator use Diabetes mellitus complication status: without complication Qualified Code(s): E11.9 - Type 2 diabetes mellitus without complications Code(s): E11.9 - Type 2 diabetes mellitus without complications Status: Chronic Assessment and Plan: Accu-Cheks, sliding scale insulin, A1c was 8.9 07/17 Blood glucose reviewed 07/22 (7) Anemia: Code(s): D64.9 - Anemia, unspecified Status: Acute Assessment and Plan: Stable, monitor, appears to be at baseline Plan DVT prophylaxis with lovenox GI prophylaxis not indicated Code status full code Subjective Date/time seen: 07/24/22 11:58 Supportive care, stable on room air, check labs, recheck CRP 07/22 significantly improved, down to 1.4 from 4.6 Recheck CRP /8 07/24/2022 interval history: patient shortness of breath with pleural effusion status post thoracentesis with history of cardiomyopathy seen by cardiology being treated with GDMT to help diurese the patient, patient clinical symptoms are improved feels weak, will continue to diurese the patient, in terms of COVID patient remains stable not requiring any oxygen, repeat chest x-ray today shows right moderate effusion, will continue to diurese the patient, will re
[2022-07-24 12:00] LABS: Glucose Point of Care 204 mg/dl (65-105)
[2022-07-24] MEDS: INSULIN ASPART (*BKC) 100 UNITS/ML SUB-Q (12:19)
[2022-07-24 13:09] VITALS: BP 111/65; PULSE 63; RESP 12; TEMP 36.6; O2SAT 100
[2022-07-24 17:11] LABS: Glucose Point of Care 103 mg/dl (65-105)
[2022-07-24] MEDS: ENOXAPARIN 40 MG/0.4 ML SYRINGE SUB-Q (17:22)
[2022-07-24] MEDS: INSULIN GLARGINE (*BKC) 100 UNITS/ML 10 UNITS SUB-Q (21:50)
[2022-07-24 21:52] VITALS: PULSE 64
[2022-07-24] MEDS: diphenhydrAMINE HCl CAP 25 MG CAPSULE PO (21:52)
[2022-07-24 22:00] VITALS: BP 100/58; PULSE 63; RESP 18; TEMP 36.2; O2SAT 96
[2022-07-24 22:07] LABS: Glucose Point of Care 131 mg/dl (65-105)
--- NOTE | 2022-07-25 02:17 | PC.NURSE ---
Pt did not make eye contact with this nurse. Nodding head to questions. Limited verbalization . Performed IS when asked to doso...up to 1999...Assessment of lower legs, thick rough skin noted , this nurse pulled off sock of one foot for assessment- pt upset, yelled to not touch him. Stated that I'm not a shinto person and cant look at his legs. Pt stated that he is Mormon Mepilex noted to heel. Sock replaced and pt told this nurse to get out of his room. Pt without TEDS/SCD's on. Isolation continues- COVID
[2022-07-25 06:00] VITALS: BP 100/57; PULSE 75; RESP 18; TEMP 36.3; O2SAT 96
[2022-07-25 06:39] LABS: Basophils Absolute Auto 0.1 K/mm3 (0.0-0.1); Eosinophils Absolute Auto 0.2 K/mm3 (0-0.3); Eosinophils Percent Auto 4.4 % (0-4.4); Hematocrit 41.5 % (42.0-52.0); Hemoglobin 13.3 g/dL (14.0-18.0); Immature Granulocyte Absolute 0.01 K/mm3 (0.00-0.031); Immature Granulocyte Percent A 0.2 % (0-0.5); Lymphocytes Absolute Auto 0.95 K/mm3 (0.9-3.2); Lymphocytes Percent Auto 18.2 % (18.3-44.2); Mean Corpuscular Hemoglobin 30.6 pg (26-34); Mean Corpuscular Volume 95.4 fl (80-100); Mean Platelet Volume 10.8 fl (7.4-10.4); Monocytes Absolute Auto 0.5 K/mm3 (0.1-0.6); Monocytes Percent Auto 10.2 % (2.6-8.5); Neutrophils Absolute Auto 3.5 K/mm3 (1.3-6.7); Platelet Count Result 245 k/mm3 (150-375); Red Blood Count 4.35 M/mm3 (4.6-6.20); Red Cell Distribution Width 13.9 % (11.5-14.5); White Blood Count 5.2 K/mm3 (4.5-10.0)
[2022-07-25 06:48] LABS: Alanine Aminotransferase 29 U/L (6-50); Albumin Level 3.8 g/dL (3.5-5.1); Alkaline Phosphatase 149 U/L (38-126); Anion Gap 2 mmol/L (8-16); Aspartate Amino Transferase 36 U/L (17-59); Bilirubin,Total 0.9 mg/dL (0.2-1.3); Blood Urea Nitrogen 29 mg/dL (9-20); Calcium 8.4 mg/dL (8.4-10.2); Carbon Dioxide 35 mmol/L (22-30); Chloride 99 mmol/L (98-107); Estimated CRCL calculation 70 ml/min; Estimated Glomerular Filt Rate > 60; Glucose 78 mg/dL (65-110); Potassium 4.6 mmol/L (3.4-5.0); Sodium 136 mmol/L (137-145)
[2022-07-25 08:32] LABS: Glucose Point of Care 74 mg/dl (65-105)
[2022-07-25 09:30] VITALS: BP 92/53; PULSE 98
[2022-07-25 10:02] VITALS: PULSE 97
[2022-07-25] MEDS: carvediloL 3.125 MG TABLET PO ×2 (10:02→21:45)
[2022-07-25] MEDS: MAGNESIUM OXIDE 400 MG TABLET PO ×2 (10:03→17:42)
[2022-07-25] MEDS: SPIRONOLACTONE 25 MG TABLET PO (10:03)
[2022-07-25] MEDS: EMPAGLIFLOZIN 10 MG TABLET PO (10:03)
[2022-07-25] MEDS: SACUBITRIL/VALSARTAN 24-26 MG TABLET 1 TAB PO (10:03)
[2022-07-25 11:41] LABS: Glucose Point of Care 185 mg/dl (65-105)
[2022-07-25 13:43] VITALS: BP 109/62; PULSE 66; RESP 16; TEMP 36.1; O2SAT 98
--- NOTE | 2022-07-25 14:02 | PM.IMPN ---
Progress Note: A&P Assessment and Plan (1) COVID: Code(s): U07.1 - COVID-19 Status: Acute Assessment and Plan: Supportive care, stable on room air, check labs, recheck CRP 07/22 significantly improved, down to 1.4 from 4.6 Recheck CRP 07/2407/25/2022 interval history: patient shortness of breath with pleural effusion status post thoracentesis with history of cardiomyopathy seen by cardiology being treated with GDMT to help diurese the patient, patient clinical symptoms are improving feels weak, patient being diused with IV lasix 40mg qd, will switch to PO as patient BUN is rising, in terms of COVID today patient is off isolation, patient remains stable not requiring any oxygen, repeat chest x-ray today shows right moderate effusion, will continue to diurese the patient, will reassess Tuesday patient may need thoracentesis further recommendation to follow. (2) Pleural effusion: Code(s): J90 - Pleural effusion, not elsewhere classified Status: Acute Assessment and Plan: Status post thoracentesis with removal of 1L of fluid 07/16 Recheck chest x-ray 07/19 looks worse, follow up pleural fluid studies, pending Chest CT 07/19 showed moderate B/L effusions Recheck CXR 07/22 essentially unchanged, consider pulm consult or repeat thoracentesis vs discharge and f/u CXR outpatient (3) Acute exacerbation of CHF (congestive heart failure): Code(s): I50.9 - Heart failure, unspecified Status: Acute Assessment and Plan: Echo from 2020 showed an EF of 30-35% with grade 2 diastolic dysfunction, moderate pulmonary hypertension and moderate valvular disease Continue IV diuresis, echo from 07/16 showed EF 20-25%, severe global left ventricular systolic dysfunction, diastolic dysfunction with right ventricular hypokinesis, mild valvular disease and severe pulmonary hypertension noted with a trivial pericardial effusion as well 07/19: Cardiology consult pending, increase diuresis to lasix 40 mg IV TID 07/20: Appreciate cardio consult, cont diuresis 07/21: Decrease diuresis today from TID to BID, monitor 07/22: Diuresing well, down 2L yesterday, BUN/creat/CO2 rising, decrease lasix to daily, CXR unchanged (4) Dyslipidemia: Code(s): E78.5 - Hyperlipidemia, unspecified Status: Acute Assessment and Plan: Continue with heart healthy diet (5) Essential (primary) hypertension: Code(s): I10 - Essential (primary) hypertension Status: Acute Assessment and Plan: Continue with Entresto, aldactone and coreg Blood pressures reviewed 07/22 On the lower side while diuresing, decrease coreg to 3.125 mg temporarily 07/22 (6) Diabetes mellitus: Qualifiers: Diabetes mellitus type: type 2 Diabetes mellitus human resources clerk insulin use: without residential use Diabetes mellitus complication status: without complication Qualified Code(s): E11.9 - Type 2 diabetes mellitus without complications Code(s): E11.9 - Type 2 diabetes mellitus without complications Status: Chronic Assessment and Plan: Accu-Cheks, sliding scale insulin, A1c was 8.9 07/17 Blood glucose reviewed 07/22 (7) Anemia: Code(s): D64.9 - Anemia, unspecified Status: Acute Assessment and Plan: Stable, monitor, appears to be at baseline Plan DVT prophylaxis with lovenox GI prophylaxis not indicated Code status full code Subjective Date/time seen: 07/25/22 14:02 Supportive care, stable on room air, check labs, recheck CRP 07/22 significantly improved, down to 1.4 from 4.6 Recheck CRP 4/8 07/25/2022 interval history: patient shortness of breath with pleural effusion status post thoracentesis with history of cardiomyopathy seen by cardiology being treated with GDMT to help diurese the patient, patient clinical symptoms are improving feels weak, patient being diused with IV lasix 40mg qd, will switch to PO as patient BUN is rising, in terms of COVID today patient is o
[2022-07-25 16:44] LABS: Glucose Point of Care 123 mg/dl (65-105)
[2022-07-25] MEDS: ENOXAPARIN 40 MG/0.4 ML SYRINGE SUB-Q (17:42)
[2022-07-25 20:00] VITALS: PULSE 67; RESP 19; O2SAT 96
[2022-07-25 21:19] LABS: Glucose Point of Care 189 mg/dl (65-105)
--- NOTE | 2022-07-25 21:20 | PC.NURSE ---
TRENTON Patricia was notified by the advertising writer via phone about pt's low BP. New orders received to hold 2100 dose of Entresto.
[2022-07-25 21:23] VITALS: BP 90/57; PULSE 67; RESP 19; TEMP 36.9; O2SAT 96
[2022-07-25] MEDS: INSULIN GLARGINE (*BKC) 100 UNITS/ML 10 UNITS SUB-Q (21:43)
[2022-07-25] MEDS: diphenhydrAMINE HCl CAP 25 MG CAPSULE PO (21:46)
[2022-07-26] VITALS (7 sets, daily range): BP systolic 100–116; BP diastolic 56–63; PULSE 65–76; RESP 14–18; TEMP 36.5–36.6; O2SAT 97–98
[2022-07-26 01:57] LABS: Amylase, Pleural Fluid 46 U/L
[2022-07-26 05:52] LABS: Basophils Absolute Auto 0.1 K/mm3 (0.0-0.1); Basophils Percent Auto 1.1 % (0.2-1.2); Eosinophils Absolute Auto 0.2 K/mm3 (0-0.3); Eosinophils Percent Auto 5.1 % (0-4.4); Hematocrit 38.4 % (42.0-52.0); Hemoglobin 12.4 g/dL (14.0-18.0); Immature Granulocyte Absolute 0.01 K/mm3 (0.00-0.031); Immature Granulocyte Percent A 0.2 % (0-0.5); Lymphocytes Absolute Auto 0.98 K/mm3 (0.9-3.2); Lymphocytes Percent Auto 21.6 % (18.3-44.2); Mean Corpuscular HGB Conc 32.3 g/dl (32-36); Mean Corpuscular Hemoglobin 29.8 pg (26-34); Mean Corpuscular Volume 92.3 fl (80-100); Mean Platelet Volume 10.5 fl (7.4-10.4); Monocytes Absolute Auto 0.6 K/mm3 (0.1-0.6); Monocytes Percent Auto 12.6 % (2.6-8.5); Neutrophils Absolute Auto 2.7 K/mm3 (1.3-6.7); Neutrophils Percent Auto 59.4 % (45.5-73.1); Platelet Count Result 211 k/mm3 (150-375); Red Blood Count 4.16 M/mm3 (4.6-6.20); Red Cell Distribution Width 13.6 % (11.5-14.5); White Blood Count 4.5 K/mm3 (4.5-10.0)
[2022-07-26 06:01] LABS: Alanine Aminotransferase 36 U/L (6-50); Albumin Level 3.7 g/dL (3.5-5.1); Alkaline Phosphatase 141 U/L (38-126); Anion Gap 3 mmol/L (8-16); Aspartate Amino Transferase 44 U/L (17-59); Bilirubin,Total 0.8 mg/dL (0.2-1.3); Blood Urea Nitrogen 29 mg/dL (9-20); Calcium 8.4 mg/dL (8.4-10.2); Carbon Dioxide 33 mmol/L (22-30); Chloride 100 mmol/L (98-107); Estimated CRCL calculation 78 ml/min; Estimated Glomerular Filt Rate > 60; Glucose 76 mg/dL (65-110); Potassium 4.5 mmol/L (3.4-5.0); Sodium 136 mmol/L (137-145)
[2022-07-26 08:32] LABS: Glucose Point of Care 78 mg/dl (65-105)
[2022-07-26] MEDS: carvediloL 3.125 MG TABLET PO ×2 (08:36→20:56)
[2022-07-26] MEDS: SACUBITRIL/VALSARTAN 24-26 MG TABLET 1 TAB PO ×2 (08:37→20:56)
[2022-07-26] MEDS: FUROSEMIDE 40 MG TABLET PO (08:39)
[2022-07-26] MEDS: SPIRONOLACTONE 25 MG TABLET PO (08:39)
[2022-07-26 11:30] LABS: Glucose Point of Care 79 mg/dl (65-105)
--- NOTE | 2022-07-26 11:55 | PC.NURSE ---
To Ultrasound for Paracentesis.
--- NOTE | 2022-07-26 13:29 | PM.IMPN ---
Progress Note: A&P Assessment and Plan (1) COVID: Code(s): U07.1 - COVID-19 Status: Acute Assessment and Plan: Supportive care, stable on room air, check labs, recheck CRP 07/22 significantly improved, down to 1.4 from 4.6 Recheck CRP 07/2407/26/2022 interval history: patient shortness of breath with pleural effusion status post thoracentesis on 07/16 and 1L was removed repeat CXR today showed persistent moderate sized left oleural effusion, and had thoracentesis and agian 1L was remove, history of cardiomyopathy seen by cardiology being treated with GDMT to help diurese the patient, patient clinical symptoms are improving feels weak, patient being diused with IV lasix 40mg qd, today switched to PO as patient BUN is rising, in terms of COVID on 07/25 patient was off isolation, patient remains stable not requiring any oxygen, will monitor 1 day of discharge the patient tomorrow. (2) Pleural effusion: Code(s): J90 - Pleural effusion, not elsewhere classified Status: Acute Assessment and Plan: Status post thoracentesis with removal of 1L of fluid 07/16 Recheck chest x-ray 07/19 looks worse, follow up pleural fluid studies, pending Chest CT 07/19 showed moderate B/L effusions Recheck CXR 07/22 essentially unchanged, consider pulm consult or repeat thoracentesis vs discharge and f/u CXR outpatient (3) Acute exacerbation of CHF (congestive heart failure): Code(s): I50.9 - Heart failure, unspecified Status: Acute Assessment and Plan: Echo from 2020 showed an EF of 30-35% with grade 2 diastolic dysfunction, moderate pulmonary hypertension and moderate valvular disease Continue IV diuresis, echo from 07/16 showed EF 20-25%, severe global left ventricular systolic dysfunction, diastolic dysfunction with right ventricular hypokinesis, mild valvular disease and severe pulmonary hypertension noted with a trivial pericardial effusion as well 07/19: Cardiology consult pending, increase diuresis to lasix 40 mg IV TID 07/20: Appreciate cardio consult, cont diuresis 07/21: Decrease diuresis today from TID to BID, monitor 07/22: Diuresing well, down 2L yesterday, BUN/creat/CO2 rising, decrease lasix to daily, CXR unchanged (4) Dyslipidemia: Code(s): E78.5 - Hyperlipidemia, unspecified Status: Acute Assessment and Plan: Continue with heart healthy diet (5) Essential (primary) hypertension: Code(s): I10 - Essential (primary) hypertension Status: Acute Assessment and Plan: Continue with Entresto, aldactone and coreg Blood pressures reviewed 07/22 On the lower side while diuresing, decrease coreg to 3.125 mg temporarily 07/22 (6) Diabetes mellitus: Qualifiers: Diabetes mellitus type: type 2 Diabetes mellitus intermediate insulin use: without manager terminal use Diabetes mellitus complication status: without complication Qualified Code(s): E11.9 - Type 2 diabetes mellitus without complications Code(s): E11.9 - Type 2 diabetes mellitus without complications Status: Chronic Assessment and Plan: Accu-Cheks, sliding scale insulin, A1c was 8.9 07/17 Blood glucose reviewed 07/22 (7) Anemia: Code(s): D64.9 - Anemia, unspecified Status: Acute Assessment and Plan: Stable, monitor, appears to be at baseline Plan DVT prophylaxis with lovenox GI prophylaxis not indicated Code status full code Subjective Date/time seen: 07/26/22 13:29 Supportive care, stable on room air, check labs, recheck CRP 07/22 significantly improved, down to 1.4 from 4.6 Recheck CRP 4/8 07/26/2022 interval history: patient shortness of breath with pleural effusion status post thoracentesis on 07/16 and 1L was removed repeat CXR today showed persistent moderate sized left oleural effusion, and had thoracentesis and agian 1L was remove, history of cardiomyopathy seen by cardiology being treated with GDMT to help diurese the patient, alyssa
[2022-07-26 17:04] LABS: Glucose Point of Care 118 mg/dl (65-105)
[2022-07-26] MEDS: MAGNESIUM OXIDE 400 MG TABLET PO (17:23)
[2022-07-26] MEDS: ENOXAPARIN 40 MG/0.4 ML SYRINGE SUB-Q (17:23)
[2022-07-26] MEDS: diphenhydrAMINE HCl CAP 25 MG CAPSULE PO (20:57)
[2022-07-26 22:08] LABS: Glucose Point of Care 203 mg/dl (65-105)
[2022-07-26] MEDS: INSULIN GLARGINE (*BKC) 100 UNITS/ML 10 UNITS SUB-Q (22:08)
[2022-07-27 05:19] VITALS: BP 114/63; PULSE 66; RESP 16; TEMP 36.4; O2SAT 97
[2022-07-27 06:01] LABS: Basophils Percent Auto 0.8 % (0.2-1.2); Eosinophils Absolute Auto 0.2 K/mm3 (0-0.3); Eosinophils Percent Auto 4.8 % (0-4.4); Hemoglobin 12.8 g/dL (14.0-18.0); Immature Granulocyte Absolute 0.01 K/mm3 (0.00-0.031); Immature Granulocyte Percent A 0.2 % (0-0.5); Lymphocytes Absolute Auto 0.82 K/mm3 (0.9-3.2); Lymphocytes Percent Auto 16.4 % (18.3-44.2); Mean Corpuscular Hemoglobin 30.7 pg (26-34); Mean Corpuscular Volume 95.9 fl (80-100); Mean Platelet Volume 10.5 fl (7.4-10.4); Monocytes Absolute Auto 0.6 K/mm3 (0.1-0.6); Monocytes Percent Auto 11.8 % (2.6-8.5); Neutrophils Absolute Auto 3.3 K/mm3 (1.3-6.7); Platelet Count Result 220 k/mm3 (150-375); Red Blood Count 4.17 M/mm3 (4.6-6.20); Red Cell Distribution Width 13.6 % (11.5-14.5)
[2022-07-27 06:11] LABS: Alanine Aminotransferase 38 U/L (6-50); Albumin Level 3.9 g/dL (3.5-5.1); Alkaline Phosphatase 145 U/L (38-126); Anion Gap 2 mmol/L (8-16); Aspartate Amino Transferase 46 U/L (17-59); Blood Urea Nitrogen 28 mg/dL (9-20); Calcium 8.6 mg/dL (8.4-10.2); Carbon Dioxide 33 mmol/L (22-30); Chloride 101 mmol/L (98-107); Estimated CRCL calculation 78 ml/min; Estimated Glomerular Filt Rate > 60; Glucose 97 mg/dL (65-110); Potassium 4.9 mmol/L (3.4-5.0); Sodium 136 mmol/L (137-145)
[2022-07-27 07:55] VITALS: RESP 18; O2SAT 97
[2022-07-27 08:02] VITALS: PULSE 66
[2022-07-27] MEDS: carvediloL 3.125 MG TABLET PO (08:02)
[2022-07-27] MEDS: FUROSEMIDE 40 MG TABLET PO (08:02)
[2022-07-27] MEDS: EMPAGLIFLOZIN 10 MG TABLET PO (08:02)
[2022-07-27] MEDS: SPIRONOLACTONE 25 MG TABLET PO (08:03)
[2022-07-27] MEDS: MAGNESIUM OXIDE 400 MG TABLET PO (08:03)
[2022-07-27] MEDS: SACUBITRIL/VALSARTAN 24-26 MG TABLET 1 TAB PO (08:03)
[2022-07-27 08:41] LABS: Glucose Point of Care 109 mg/dl (65-105)
--- NOTE | 2022-07-27 10:56 | PM.IMPN ---
Progress Note: A&P Assessment and Plan (1) COVID: Code(s): U07.1 - COVID-19 Status: Acute Assessment and Plan: Supportive care, stable on room air, check labs, recheck CRP 07/22 significantly improved, down to 1.4 from 4.6 Recheck CRP resolved 07/23, off isolation 07/25 (2) Pleural effusion: Code(s): J90 - Pleural effusion, not elsewhere classified Status: Acute Assessment and Plan: Status post thoracentesis with removal of 1L of fluid 07/16 Recheck chest x-ray 07/19 looks worse, follow up pleural fluid studies, pending Chest CT 07/19 showed moderate B/L effusions Recheck CXR 07/22 essentially unchanged, repeat thoracentesis performed 07/26 with removal of 1L fluid Repeat CXR looks much better, likely transudative process with cardiac etiology, d/c and f/u outpatient with cardio (3) Acute exacerbation of CHF (congestive heart failure): Code(s): I50.9 - Heart failure, unspecified Status: Acute Assessment and Plan: Echo from 2020 showed an EF of 30-35% with grade 2 diastolic dysfunction, moderate pulmonary hypertension and moderate valvular disease Continue IV diuresis, echo from 07/16 showed EF 20-25%, severe global left ventricular systolic dysfunction, diastolic dysfunction with right ventricular hypokinesis, mild valvular disease and severe pulmonary hypertension noted with a trivial pericardial effusion as well 07/19: Cardiology consult pending, increase diuresis to lasix 40 mg IV TID 07/20: Appreciate cardio consult, cont diuresis 07/21: Decrease diuresis today from TID to BID, monitor 07/22: Diuresing well, down 2L yesterday, BUN/creat/CO2 rising, decrease lasix to daily, CXR unchanged 07/27: Transitioned to po lasis 07/26, stable, anticipate d/c soon, appears euvolemic (4) Dyslipidemia: Code(s): E78.5 - Hyperlipidemia, unspecified Status: Acute Assessment and Plan: Continue with heart healthy diet (5) Essential (primary) hypertension: Code(s): I10 - Essential (primary) hypertension Status: Acute Assessment and Plan: Continue with Entresto, aldactone and coreg Blood pressures reviewed 07/27, still on the low side, cont coreg at reduced dose On the lower side while diuresing, decrease coreg to 3.125 mg temporarily 07/22 (6) Diabetes mellitus: Qualifiers: Diabetes mellitus complication status: without complication Diabetes mellitus long term care administrator insulin use: without long term care administrator use Diabetes mellitus type: type 2 Qualified Code(s): E11.9 - Type 2 diabetes mellitus without complications Code(s): E11.9 - Type 2 diabetes mellitus without complications Status: Chronic Assessment and Plan: Accu-Cheks, sliding scale insulin, A1c was 8.9 07/17 Blood glucose reviewed 07/27 (7) Anemia: Code(s): D64.9 - Anemia, unspecified Status: Acute Assessment and Plan: Stable, monitor, appears to be at baseline Plan DVT prophylaxis with lovenox GI prophylaxis not indicated Code status full code Subjective Date/time seen: 07/27/22 10:56 Interval history: No overnight events noted. No chest pain or shortness of breath. No nausea, vomiting or diarrhea. No fevers or chills. Review of Systems Review of Systems: 12 point review of systems was assessed and was negative except as noted in the HPI Exam Narrative: General: No acute distress, alert and oriented per baseline HEENT: Atraumatic, normocephalic, mucous membranes moist CV: Regular rate and rhythm, S1, S2 Lungs: Clear to auscultation bilaterally, no rales or crackles noted, no wheezes, good air entry Abdomen: Soft, nontender, nondistended Extremities: Normal to inspection Skin: No rashes noted, no lesions or wounds seen Psych: Euthymic, normal affect Objective Data Vital Signs Vital Signs: Vital Signs - 24 hr 07/26/22 13:55 07/26/22 20:56 07/26/22 20:00 Temperature 98 F Pulse Rate 65 65 65 Respiratory
[2022-07-27 11:52] LABS: Glucose Point of Care 250 mg/dl (65-105)
[2022-07-27] MEDS: INSULIN ASPART (*BKC) 100 UNITS/ML SUB-Q (11:58)
--- NOTE | 2022-07-27 13:45 | PM.DS ---
DS: Admitting Diagnosis Discharge Date 07/27/22 Admitting Diagnosis sob DS: Discharge Diagnosis Discharge Diagnosis (1) COVID: Code(s): U07.1 - COVID-19 Status: Acute Assessment and Plan: Supportive care, stable on room air, check labs, recheck CRP 07/22 significantly improved, down to 1.4 from 4.6 Recheck CRP resolved 07/23, off isolation 07/25 (2) Pleural effusion: Code(s): J90 - Pleural effusion, not elsewhere classified Status: Acute Assessment and Plan: Status post thoracentesis with removal of 1L of fluid 07/16 Recheck chest x-ray 07/19 looks worse, follow up pleural fluid studies, pending Chest CT 07/19 showed moderate B/L effusions Recheck CXR 07/22 essentially unchanged, repeat thoracentesis performed 07/26 with removal of 1L fluid Repeat CXR looks much better, likely transudative process with cardiac etiology, d/c and f/u outpatient with cardio (3) Acute exacerbation of CHF (congestive heart failure): Code(s): I50.9 - Heart failure, unspecified Status: Acute Assessment and Plan: Echo from 2020 showed an EF of 30-35% with grade 2 diastolic dysfunction, moderate pulmonary hypertension and moderate valvular disease Continue IV diuresis, echo from 07/16 showed EF 20-25%, severe global left ventricular systolic dysfunction, diastolic dysfunction with right ventricular hypokinesis, mild valvular disease and severe pulmonary hypertension noted with a trivial pericardial effusion as well 07/19: Cardiology consult pending, increase diuresis to lasix 40 mg IV TID 07/20: Appreciate cardio consult, cont diuresis 07/21: Decrease diuresis today from TID to BID, monitor 07/22: Diuresing well, down 2L yesterday, BUN/creat/CO2 rising, decrease lasix to daily, CXR unchanged 07/27: Transitioned to po lasis 07/26, stable, anticipate d/c soon, appears euvolemic (4) Dyslipidemia: Code(s): E78.5 - Hyperlipidemia, unspecified Status: Acute Assessment and Plan: Continue with heart healthy diet (5) Essential (primary) hypertension: Code(s): I10 - Essential (primary) hypertension Status: Acute Assessment and Plan: Continue with Entresto, aldactone and coreg Blood pressures reviewed 4/11, still on the low side, cont coreg at reduced dose On the lower side while diuresing, decrease coreg to 3.125 mg temporarily 07/22 (6) Diabetes mellitus: Qualifiers: Diabetes mellitus type: type 2 Diabetes mellitus long-term insulin use: without terminal makeup operator use Diabetes mellitus complication status: without complication Qualified Code(s): E11.9 - Type 2 diabetes mellitus without complications Code(s): E11.9 - Type 2 diabetes mellitus without complications Status: Chronic Assessment and Plan: Accu-Cheks, sliding scale insulin, A1c was 8.9 07/17 Blood glucose reviewed 07/27 (7) Anemia: Code(s): D64.9 - Anemia, unspecified Status: Acute Assessment and Plan: Stable, monitor, appears to be at baseline Plan DVT prophylaxis with lovenox GI prophylaxis not indicated Code status full code DS: Summary Hospital Course Hospital Course: 71-year-old male with past medical history significant for heart failure and diabetes is presenting with shortness of breath, found to have pleural effusions and was positive for COVID. Cardiology was consulted and he was diuresed with Lasix IV. He received thoracentesis on 07/16 and again on 07/26 with 1 L removed each time. Cytology was negative for malignancy and the effusion was thought to be transudative concerning for heart failure. Echo results noted above. Cardiology initiated medications for GDMT for heart failure. See above and med rec for details. Time Spent with Patient Time attestation: Total time spent providing and/or coordinating discharge services: Exam Narrative: General: No acute distress, alert and oriented per baseline HEENT: Atraumatic,
== END 2022-07-27 15:00 | disposition home or self-care (01) | DRG 177 ==
LOC: ANHED 08:14 → ANH2MED 09:19
PROVIDERS: Emergency Medicine; Nurse Practitioner; Admitting Provider Internal Medicine; Emergency Provider Emergency Medicine; Visit Provider Student in an Organized Health Care Education/Training Program
DX: U07.1 COVID-19 (principal); I50.43 Acute on chronic combined systolic (congestive) and diastolic (congestive) heart failure; J90 Pleural effusion, not elsewhere classified; E11.40 Type 2 diabetes mellitus with diabetic neuropathy, unspecified; I11.0 Hypertensive heart disease with heart failure; E78.5 Hyperlipidemia, unspecified; D64.9 Anemia, unspecified; Z79.4 Long term (current) use of insulin; Z95.810 Presence of automatic (implantable) cardiac defibrillator; Z79.899 Other long term (current) drug therapy; Z88.0 Allergy status to penicillin
CPT/HCPCS: 32555; 36415; 71045; 71250; 80053; 82042; 82150; 82945; 82948; 83036; 83605; 83615; 83735; 83880; 83986; 84145; 84157; 84311; 84443; 84478; 85025; 85380; 85610; 85730; 86140; 87070; 87075; 87205; 87637; 88108; 88184; 88305; 89051; 93005; 93306; 94640; 99285; A9270; J1650; J1815; J1940

== ENCOUNTER 2022-11-27 07:48 | Observation (INO) | payer OTHER, SELFPAY ==
[2022-11-27] VITALS (33 sets, daily range): BP systolic 112–156; BP diastolic 66–110; PULSE 77–109; RESP 16–32; TEMP 36.4–36.9; O2SAT 90–100
--- NOTE | ~2022-11-27 | XR_ITS ---
EXAMINATION: XR chest 1V portable INDICATION: Shortness of breath TECHNIQUE: Portable AP chest at 0818 hours COMPARISON: 07/27/2022 FINDINGS: There are bilateral pleural effusions, small to moderate left and small on the right. No pn eumothorax is identified. The cardiac silhouette is obscured. There are airspace opacities of the davis g bases and left midlung zone. A triple lead cardiac pacemaker of the left chest wall ends with leads in expected locations. IMPRESSION: 1. Bilateral pleural effusions, [id number] on the left and smaller right. 2. Airspace opacities of the lung bases and left midlung zone, consistent with atelectasis versus pne umonia. Reviewed, dictated and finalized at location A. IMPRESSION: 1. Bilateral pleural effusions, [id number] on the left and smaller right . 2. Airspace opacities of the lung bases and left midlung zone, consistent with atelectasis versus pneumonia.
--- NOTE | ~2022-11-27 | XR_ITS ---
EXAMINATION: XR chest 2V DATE: 11/30/2022 11:29 INDICATION: Pleural effusions TECHNIQUE: PA and lateral views of the chest were obtained. COMPARISON: 11/27/2022 FINDINGS: Persistent opacities in the right lower and left mid to lower lung zones consistent with small right and moderate-sized left pleural effusions with associated adjacent atelectasis although superimposed pneumonia is not excludable. No pulmonary edema or other airspace opacities in the aerated portions o f the lungs. No pneumothorax. Mild cardiomegaly. Three lead pacemaker/AICD seen with leads projecting over the expected locations of the right atrial appendage, apex of the right ventricle and overlying the left ventricle likely having traversed the coronary sinus. There are bridging osteophytes at mul tiple levels in the spine, consistent with diffuse idiopathic skeletal hyperostosis (DISH). IMPRESSION: 1. Small right and moderate-sized left pleural effusions with associated compressive atelectasis alth ough superimposed pneumonia not excludable. 2. Mild cardiomegaly. Reviewed, dictated and finalized at location A. IMPRESSION: 1. Small right and moderate-sized left pleural effusions with associated compre ssive atelectasis although superimposed pneumonia not excludable. 2. Mild cardiomegaly.
--- NOTE | 2022-11-27 07:49 | ECG_ITS ---
Measurements Intervals [place] Rate: 101 P: CA: 0 QRS: 253 QRSD: 172 T: 60 QT: 414 QTc: 538 Interpretive Statements ELECTRONIC VENTRICULAR PACEMAKER ABNORMAL ECG COMPARED TO ECG 07/16/2022 06:17:06 NO SIGNIFICANT CHANGES Electronically Signed On 11-27-2022 12:40:42 CDT by Gregg Hazel M.D.
[2022-11-27 08:06] LABS: Basophils Absolute Auto 0.1 K/mm3 (0.0-0.1); Basophils Percent Auto 0.7 % (0.2-1.2); Eosinophils Absolute Auto 0.1 K/mm3 (0-0.3); Eosinophils Percent Auto 1.7 % (0-4.4); Hematocrit 41.2 % (42.0-52.0); Hemoglobin 12.6 g/dL (14.0-18.0); Immature Granulocyte Absolute 0.03 K/mm3 (0.00-0.031); Immature Granulocyte Percent A 0.4 % (0-0.5); Lymphocytes Absolute Auto 0.85 K/mm3 (0.9-3.2); Lymphocytes Percent Auto 12.2 % (18.3-44.2); Mean Corpuscular HGB Conc 30.6 g/dl (32-36); Mean Corpuscular Hemoglobin 29.6 pg (26-34); Mean Corpuscular Volume 96.9 fl (80-100); Monocytes Absolute Auto 0.5 K/mm3 (0.1-0.6); Monocytes Percent Auto 6.6 % (2.6-8.5); Neutrophils Absolute Auto 5.5 K/mm3 (1.3-6.7); Neutrophils Percent Auto 78.4 % (45.5-73.1); Platelet Count Result 245 k/mm3 (150-375); Red Blood Count 4.25 M/mm3 (4.6-6.20)
[2022-11-27 08:19] LABS: Alanine Aminotransferase 22 U/L (6-50); Albumin Level 4.3 g/dL (3.5-5.1); Alkaline Phosphatase 170 U/L (38-126); Anion Gap 6 mmol/L (8-16); Aspartate Amino Transferase 32 U/L (17-59); Bilirubin,Total 1.1 mg/dL (0.2-1.3); Blood Urea Nitrogen 23 mg/dL (9-20); Calcium 9.3 mg/dL (8.4-10.2); Carbon Dioxide 29 mmol/L (22-30); Chloride 102 mmol/L (98-107); Estimated CRCL calculation 70 ml/min; Estimated Glomerular Filt Rate > 60; Glucose 211 mg/dL (65-110); Potassium 4.5 mmol/L (3.4-5.0); Sodium 137 mmol/L (137-145)
[2022-11-27 08:29] LABS: Magnesium 2.2 mg/dL (1.6-2.3)
--- NOTE | 2022-11-27 08:36 | ED.SOB ---
HPI - SOB/Dyspnea General Chief Complaint: Shortness of Breath/Dyspnea Stated Complaint: dyspnea Time Seen by Provider: 11/27/22 07:50 History of Present Illness HPI Narrative: This is a 71-year-old male, with past medical history of CHF and diabetes, who presents to the emergency department with shortness of breath for the last several days. The patient states he has been compliant with his medications, though has noted increased weight gain, bilateral leg swelling and shortness of breath. He denies fevers, chills, chest pain. He has had small amount of nonproductive cough. Related Data Home Medications Medication Instructions Recorded Confirmed magnesium oxide 400 mg (241.3 mg 500 mg PO BID 05/20/20 11/27/22 magnesium) tablet aspirin 81 mg tablet,delayed 81 mg PO EVERY OTHER DAY 07/16/22 11/27/22 release insulin aspart U-100 100 unit/mL 1 sliding scale dose subcut 07/16/22 11/27/22 subcutaneous solution (Novolog USEASDIRECTD U-100 Insulin aspart) insulin detemir U-100 100 unit/mL 10 unit subcut HS 07/16/22 11/27/22 subcutaneous solution (Levemir U-100 Insulin) carvedilol 3.125 mg tablet (Coreg) 3.125 mg PO DAILY 11/27/22 11/27/22 Allergies Allergy/AdvReac Type Severity Reaction Status Date / Time Penicillins Allergy Mild Unknown Verified 11/27/22 07:56 Review of Systems Review of Systems: CONSTITUTIONAL: Denies fever, chills, or sweats. CARDIOVASCULAR: Bilateral lower extremity swelling denies chest pain, palpitations RESPIRATORY: Nonproductive cough, dyspnea on exertion GASTROINTESTINAL: Denies abdominal pain, nausea, vomiting, or diarrhea. GENITOURINARY: Denies dysuria or hematuria. SKIN: Denies rash or itching. MUSCULOSKELETAL: Denies back pain, joint pain, or myalgia. NEUROLOGIC: Denies headache, numbness, dizziness, or weakness. PSYCHIATRIC: Denies anxiety or depression. [facility] Past Medical History Medical History Apical mural thrombus Complete heart block Depression Diabetic peripheral neuropathy Dyslipidemia Essential (primary) hypertension Heart failure with reduced ejection fraction Insulin dependent type 2 diabetes mellitus Nonischemic cardiomyopathy Nonsustained ventricular tachycardia Paroxysmal atrial tachycardia Peripheral arterial disease Shoulder fracture, left Vitamin D deficiency Surgical History Surgical History History of complete ray amputation of third toe of right foot (05/2020) Due to osteomyelitis. History of permanent cardiac pacemaker placement (07/2019) Medtronic BiV-ICD placed at [facility]. Family History Family History Other No problems noted. Sibling Acute myocardial infarction Mother Lung cancer Social History Social History (Updated 11/27/22 @ 15:01 by Belem Carey PA-C) Social History: Surrogate medical decision maker: Adrianne Pa, minesh. Code status: Full code. Smoking status: Never smoker Second hand tobacco smoke exposure: No Alcohol intake: never Substance use: never Lack of Transportation: No Lack of Food: Never True Current Housing: I Have Housing Concerned About Future Housing: No Difficulty Paying Gas/Electric Bills: No Difficulty Paying for Meds: No Currently Unemployed: No Education: Master's Degree or Higher Difficulty w/ Childcare or Family Care: No Living arrangements: with family Additional living arrangements comments: Lives with [id number]. . His in only daughter were killed in a car accident. 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 Spiritual care concerns: No Agree to blood products: Yes Exam Narrative: GENERAL: Well-developed, well-nourished, and in no acute distress. HEAD: Normocephalic, atraumatic. EYES: PERRLA a
[2022-11-27 08:42] LABS: NT Pro B Type Natriuretic Pept 6200 pg/mL (19.9-100); Troponin I < 0.012 ng/mL (0.000-0.034)
[2022-11-27] MEDS: FUROSEMIDE INJ 40 MG/4 ML VIAL IV PUSH ×2 (09:50→17:19)
--- NOTE | 2022-11-27 11:46 | ADMGEN ---
This patient, Dimitry Pa, was admitted to Medical Room 250-01. Patient/family oriented to hospital policies and general routines including ID bracelet, bed and alarms, visiting hours, pain management, procedures, bathroom and other care routines, personal items, smoking policy, room service/diet, and visiting hours. Information on how to activate the Rapid Response Team has been discussed. Patient/Family are encouraged to report perceived risks to care and to ask questions if they do not understand what they are told or what they should do.
--- NOTE | 2022-11-27 13:24 | PM.IMHP ---
H&P: HPI History of Present Illness Date/Time: 11/27/22 13:00 Chief Complaint: Shortness of breath. Narrative: This is a very pleasant 71-year-old male with history of nonischemic cardiomyopathy with an EF of 15 to 20%, bradycardia with heart block status Medtronic post biventricular ICD implantation at [facility] in 2019, hypertension, and insulin-dependent type 2 diabetes mellitus who presented to the emergency department for evaluation of shortness of breath. The patient provides the following history. He has become progressively more short of breath over the last several days and has noticed an increase in lower extremity edema and mild abdominal distension. He is getting short of breath when walking up a flight of steps which is unusual for him. He has also gained about 6-1/2 lb over the last 5 or 6 days. He has a mild cough which is nonproductive. He denies syncope, near syncope, sweats, chest pain, pleuritic pain, palpitations, orthopnea, paroxysmal nocturnal dyspnea, nausea, and vomiting. In the ED: Vital signs were stable. Preliminary workup is consistent with CHF exacerbation given weight gain, shortness of breath, edema, and bilateral pleural effusions on chest x-ray. He received furosemide 40 mg IV x1 is being admitted in this setting for further treatment. With further questioning he states compliance with his medications and he monitors his sodium intake. He has been out of spironolactone for 2 weeks and he was told that the prescribing physician never got back to the pharmacy. Review of Systems Review of Systems: Twelve systems were reviewed and are negative except for as per HPI. [facility] Past Medical History Medical History Apical mural thrombus Complete heart block Depression Diabetic peripheral neuropathy Dyslipidemia Essential (primary) hypertension Heart failure with reduced ejection fraction Insulin dependent type 2 diabetes mellitus Nonischemic cardiomyopathy Nonsustained ventricular tachycardia Paroxysmal atrial tachycardia Peripheral arterial disease Shoulder fracture, left Vitamin D deficiency Surgical History Surgical History History of complete ray amputation of third toe of right foot (05/2020) Due to osteomyelitis. History of permanent cardiac pacemaker placement (07/2019) Medtronic BiV-ICD placed at [facility]. Family History Family History Other No problems noted. Sibling Acute myocardial infarction Mother Lung cancer Social History Social History (Updated 11/27/22 @ 15:01 by Belem Carey PA-C) Social History: Surrogate medical decision maker: Adrianne Pa, niece. Code status: Full code. Smoking status: Never smoker Second hand tobacco smoke exposure: No Alcohol intake: never Substance use: never Lack of Transportation: No Lack of Food: Never True Current Housing: I Have Housing Concerned About Future Housing: No Difficulty Paying Gas/Electric Bills: No Difficulty Paying for Meds: No Currently Unemployed: No Education: Master's Degree or Higher Difficulty w/ Childcare or Family Care: No Living arrangements: with family Additional living arrangements comments: Lives with [id number]. . His in only daughter were killed in a car accident. 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 Spiritual care concerns: No Agree to blood products: Yes Meds Home Medications and Allergies Home Medications Medication Instructions Recorded Confirmed Type magnesium oxide 400 mg (241.3 mg 500 mg PO BID 05/20/20 11/27/22 History magnesium) tablet insulin syringe-needle U-100 0.3 #100 ea 08/18/20 11/27/22 Rx mL 31 gauge x 5/16 ([facility]) empagliflozin 10 mg tablet 10 mg PO DAILY
--- NOTE | 2022-11-27 13:33 | PM.CNCAR ---
Assessment and Plan Assessment and plan (1) Acute on chronic combined systolic and diastolic CHF (congestive heart failure): Code(s): I50.43 - Acute on chronic combined systolic (congestive) and diastolic (congestive) heart failure Status: Acute Assessment and Plan: He states that he was diuresing better when on spironolactone. Recently he has been not taking spironolactone as it had not been refilled as an outpatient for unknown reasons. Will restart the spironolactone 25 mg daily and continue his carvedilol, aspirin, Jardiance and Entresto. Continue IV furosemide 40 mg IV q.12 hours for now and monitor renal function. Intake and output/daily weights (2) Biventricular ICD (implantable cardioverter-defibrillator) in place: Code(s): Z95.810 - Presence of automatic (implantable) cardiac defibrillator Status: Acute Assessment and Plan: Function normalized evaluation (3) Nonischemic cardiomyopathy: Code(s): I42.8 - Other cardiomyopathies Status: Acute Assessment and Plan: Continue current medical regimen. Will up titrate as able (4) Hypertension associated with diabetes: Code(s): E11.59 - Type 2 diabetes mellitus with other circulatory complications; I15.2 - Hypertension secondary to endocrine disorders Status: Acute Assessment and Plan: Above goal. Will add spironolactone 25 mg daily History of Present Illness History of Present Illness Consult date/time: 11/27/22 13:33 Requesting physician: Adan Zepeda MD Consult reason: congestive heart failure Reason For Visit: chf exacerbation Narrative: Reason for consultation: CHF exacerbation Date of service 11/27/2022 Requesting provider: Dr. Adan Zepeda Mr. Pa? is a 71-year-old male with a history of nonischemic cardiomyopathy with an EF of 15-20%, bradycardia with significant heart block status post Medtronic Bi V ICD implanted at [facility] in 2019, hypertension, and diabetes mellitus on insulin.? This is a patient who is followed in our office by Dr. Clifton.? He states that he has been progressively more short of breath over the past couple days. He has had some abdominal distention as well as worsening leg swelling. He is dyspneic with walking up 1 flight of stairs. Denies any paroxysmal nocturnal dyspnea orthopnea. No chest pain. No palpitations or ICD discharges. He was given IV furosemide any noted cerumen or effusion that better. Review of Systems Review of Systems: All systems reviewed & are unremarkable except as noted in HPI and below Constitutional: Constitutional: Denies body ache(s) Eyes: Eyes: Denies blurry vision ENT: Reports Normal hearing present Cardiovascular: Cardiovascular: Denies chest pain and Reports leg edema Respiratory: Respiratory: Reports dyspnea Gastrointestinal: Gastrointestinal: Denies vomiting Comments: Abdominal bloating Genitourinary: Genitourinary: Denies hematuria Musculoskeletal: Musculoskeletal: Denies joint swelling Integumentary/Breasts: Skin/Breast: Denies dry skin Neurologic: Denies Abnormal speech present Psychiatric: Psychiatric: Denies anxiety and Denies behavioral changes Endocrine: Endocrine: Denies excessive sweating Hematologic/Lymphatic: Hematologic/Lymphatic: Denies easy bleeding Allergic/Immunologic: Allergic/Immunologic: Denies GI upset with certain foods PMFSH Past Medical History Medical History Apical mural thrombus Complete heart block Depression Diabetic peripheral neuropathy Dyslipidemia Essential (primary) hypertension Heart failure with reduced ejection fraction Insulin dependent type 2 diabetes mellitus Nonischemic cardiomyopathy Nonsustained ventricular tachycardia Paroxysmal atrial tachycardia Peripheral arterial disease Shoulder fracture, left Vitamin D deficiency Surgical History Surgical History (Reviewed 11/27/22 @ 13:
[2022-11-27 17:27] LABS: Glucose Point of Care 130 mg/dl (65-105)
[2022-11-27 21:14] LABS: Glucose Point of Care 205 mg/dl (65-105)
[2022-11-27] MEDS: SACUBITRIL/VALSARTAN 24-26 MG TABLET 1 TAB PO (21:49)
[2022-11-27] MEDS: INSULIN ASPART (*BKC) 100 UNITS/ML SUB-Q (21:49)
[2022-11-27] MEDS: INSULIN GLARGINE (*BKC) 100 UNITS/ML 10 UNITS SUB-Q (21:49)
[2022-11-27] MEDS: MAGNESIUM OXIDE 400 MG TABLET PO (22:33)
[2022-11-28] VITALS (13 sets, daily range): BP systolic 118–119; BP diastolic 69–75; PULSE 68–88; RESP 16–20; TEMP 36.4–36.9; O2SAT 94–100
[2022-11-28 05:24] LABS: Basophils Percent Auto 0.7 % (0.2-1.2); Eosinophils Absolute Auto 0.2 K/mm3 (0-0.3); Eosinophils Percent Auto 2.8 % (0-4.4); Hematocrit 37.2 % (42.0-52.0); Hemoglobin 11.8 g/dL (14.0-18.0); Immature Granulocyte Absolute 0.01 K/mm3 (0.00-0.031); Immature Granulocyte Percent A 0.2 % (0-0.5); Lymphocytes Absolute Auto 0.96 K/mm3 (0.9-3.2); Lymphocytes Percent Auto 17.9 % (18.3-44.2); Mean Corpuscular HGB Conc 31.7 g/dl (32-36); Mean Corpuscular Hemoglobin 29.9 pg (26-34); Mean Corpuscular Volume 94.2 fl (80-100); Mean Platelet Volume 10.9 fl (7.4-10.4); Monocytes Absolute Auto 0.5 K/mm3 (0.1-0.6); Monocytes Percent Auto 9.1 % (2.6-8.5); Neutrophils Absolute Auto 3.7 K/mm3 (1.3-6.7); Neutrophils Percent Auto 69.3 % (45.5-73.1); Platelet Count Result 216 k/mm3 (150-375); Red Blood Count 3.95 M/mm3 (4.6-6.20); Red Cell Distribution Width 12.5 % (11.5-14.5); White Blood Count 5.4 K/mm3 (4.5-10.0)
[2022-11-28 05:42] LABS: Anion Gap 1 mmol/L (8-16); Blood Urea Nitrogen 26 mg/dL (9-20); Calcium 8.6 mg/dL (8.4-10.2); Carbon Dioxide 34 mmol/L (22-30); Chloride 100 mmol/L (98-107); Estimated CRCL calculation 59 ml/min; Estimated Glomerular Filt Rate > 60; Glucose 89 mg/dL (65-110); Magnesium 2.2 mg/dL (1.6-2.3); Potassium 3.9 mmol/L (3.4-5.0); Sodium 135 mmol/L (137-145)
[2022-11-28 08:34] LABS: Glucose Point of Care 138 mg/dl (65-105)
[2022-11-28] MEDS: carvediloL 3.125 MG TABLET PO (08:39)
[2022-11-28] MEDS: ASPIRIN 81 MG ENTERIC TABLET PO (08:39)
[2022-11-28] MEDS: EMPAGLIFLOZIN 10 MG TABLET PO (08:40)
[2022-11-28] MEDS: ENOXAPARIN 40 MG/0.4 ML SYRINGE SUB-Q (08:40)
[2022-11-28] MEDS: SPIRONOLACTONE 25 MG TABLET PO (08:41)
[2022-11-28] MEDS: MAGNESIUM OXIDE 400 MG TABLET PO ×2 (08:41→16:50)
[2022-11-28] MEDS: SACUBITRIL/VALSARTAN 24-26 MG TABLET 1 TAB PO ×2 (08:41→21:07)
[2022-11-28] MEDS: FUROSEMIDE INJ 40 MG/4 ML VIAL IV PUSH ×2 (08:41→16:50)
--- NOTE | 2022-11-28 09:22 | PM.PNCARD ---
Progress Note: A&P Assessment and Plan (1) Acute on chronic combined systolic and diastolic CHF (congestive heart failure): Code(s): I50.43 - Acute on chronic combined systolic (congestive) and diastolic (congestive) heart failure Status: Acute Assessment and Plan: He states that he was diuresing better when on spironolactone. Continue spironolactone, carvedilol, aspirin, Jardiance, Entresto. Continue IV b.i.d. furosemide for another 24 hours. Micro reduced to once daily or possibly p.o. tomorrow. Creatinine is stable at 1.0. Continue monitor renal function (2) Biventricular ICD (implantable cardioverter-defibrillator) in place: Code(s): Z95.810 - Presence of automatic (implantable) cardiac defibrillator Status: Acute Assessment and Plan: Function normalized evaluation (3) Nonischemic cardiomyopathy: Code(s): I42.8 - Other cardiomyopathies Status: Acute Assessment and Plan: Continue current medical regimen. Will up titrate as able (4) Hypertension associated with diabetes: Code(s): E11.59 - Type 2 diabetes mellitus with other circulatory complications; I15.2 - Hypertension secondary to endocrine disorders Status: Acute Assessment and Plan: Above goal. Continue current meds Subjective Date/time seen: 11/28/22 09:22 Interval history: 71-year-old admitted for heart failure Date of service 11/28/2022: Feels much better. Still some swelling. I am breathing easier though. No chest pain Review of Systems Review of Systems: All systems reviewed & are unremarkable except as noted in HPI and below Constitutional: Constitutional: Denies body ache(s) and Denies excessive sweating Eyes: Eyes: Denies blurry vision ENT: Reports Normal hearing present Cardiovascular: Cardiovascular: Denies chest pain, Reports leg edema and Reports dyspnea Respiratory: Respiratory: Reports dyspnea Gastrointestinal: Gastrointestinal: Denies vomiting Genitourinary: Genitourinary: Denies hematuria Musculoskeletal: Musculoskeletal: Denies joint swelling Integumentary/Breasts: Skin/Breast: Denies dry skin Neurologic: Reports Normal hearing present, Denies Abnormal speech present and Denies behavioral changes Psychiatric: Psychiatric: Denies anxiety and Denies behavioral changes Endocrine: Endocrine: Denies excessive sweating Hematologic/Lymphatic: Hematologic/Lymphatic: Denies easy bleeding Allergic/Immunologic: Allergic/Immunologic: Denies GI upset with certain foods Exam Narrative: Alert oriented appears stated age Const: General: comfortable and no acute distress HENMT: Face/Nose/Sinus: Normal nares present Mouth: Yes moist mucous membranes Eyes: General: appearance normal, both eyes and all related structures Sclera: sclerae normal Neck: Neck: supple and No no JVD Thyroid: thyroid normal Carotids: no bruits Chest: Other: No reproducible chest wall pain to palpation Resp: Auscultation: rales and diminished lung sounds Cardio: Rate: regular rate Rhythm: abnormal rhythm (V paced) Heart sounds: Murmur heart sound present GI: Inspection: non-distended Auscultation: normal bowel sounds Skin: General skin exam: normal color and no rashes or lesions noted Neuro: Cranial nerves: Yes Normal hearing present Speech: normal speech and No Abnormal speech present Motor exam (neuro): 5/5 motor strength present throughout Extrem: General: edema Other: 2+ bilateral lower extremity new Psych: Mental Status: mental status grossly normal Affect: normal affect Objective Data Vital Signs Vital Signs: Vital Signs - 24 hr 11/27/22 09:30 11/27/22 09:31 11/27/22 09:32 Temperature Pulse Rate 84 77 84 Respiratory Rate 22 H 20 18 Blood Pressure 122/82 Pulse Oximetry 95 97 97 Oxygen Delivery Oxygen Flow Rate 11/27/22 10:09 11/27/22 10:15 11/27/22 10:16 Temperature Pulse Rate 88 86 87 Respiratory R
--- NOTE | 2022-11-28 10:51 | PM.IMPN ---
Progress Note: A&P Assessment and Plan (1) Acute on chronic combined systolic and diastolic CHF (congestive heart failure): Code(s): I50.43 - Acute on chronic combined systolic (congestive) and diastolic (congestive) heart failure Status: Acute (2) Nonischemic cardiomyopathy: Code(s): I42.8 - Other cardiomyopathies Status: Acute (3) Essential (primary) hypertension: Code(s): I10 - Essential (primary) hypertension Status: Acute (4) Insulin dependent type 2 diabetes mellitus: Code(s): E11.9 - Type 2 diabetes mellitus without complications; Z79.4 - technician terminal and repeater (current) use of insulin Status: Acute Plan The patient presented to the emergency department for evaluation of shortness of breath, edema, and weight gain as per HPI. Labs, imaging, EKG, and all reports were personally reviewed. He seems have symptomatic CHF exacerbation, likely due to the fact that he has been out of his spironolactone for a couple of weeks. He will be diuresed with IV furosemide 40 mg b.i.d. with close monitoring of renal function, electrolytes, and volume status. Spironolactone 25 mg daily will be resumed. Continue carvedilol, Entresto, Jardiance, and aspirin. Blood pressures were reviewed and they are stable. Continue basal insulin. Initiate sliding scale insulin, Accu-Cheks, and hypoglycemic protocol. Findings and treatment plan were discussed with the patient. Questions were solicited and answered to satisfaction. Subjective Date/time seen: 11/28/22 10:51 Interval history: Breathing improved Exam Narrative: General: A well-developed male sitting in a chair at the side of the bed in no distress. Weight: 81.2 kg. BMI: 25.7. HEENT: PERRL, EOMI. Sclera anicteric. Oral mucosa moist. Neck: Supple. No significant JVD. Respiratory: Respirations are nonlabored and he is speaking in full sentences. Lung sounds are diminished at the bases with scattered crackles. Cardiovascular: Regular rate and rhythm with S1-S2. Soft murmur at the upper sternal border. Gastrointestinal: Abdomen is soft, nontender, and nondistended with positive bowel sounds. Skin: Warm and dry. Chronic hyperpigmentation of the lower legs. Extremities: No cyanosis or clubbing. 2+ hard pitting edema of the lower legs, softening towards the knees. Neurological: Alert. Cranial nerves 2-12 are grossly intact. No gross focal deficits to casual conversation. Psychiatric: Pleasant and cooperative with normal mood and affect. Judgment and insight intact. Objective Data Vital Signs Vital Signs: Vital Signs - 24 hr 11/27/22 11:00 11/27/22 11:01 11/27/22 11:08 Temperature Pulse Rate 81 79 86 Respiratory Rate 18 16 25 H Blood Pressure 122/76 122/76 Pulse Oximetry 97 97 98 Oxygen Delivery Oxygen Flow Rate 11/27/22 11:51 11/27/22 19:18 11/27/22 12:00 Temperature 97.5 F L 97.6 F Pulse Rate 82 79 91 Respiratory Rate 18 16 Blood Pressure 132/89 128/66 Pulse Oximetry 99 97 Oxygen Delivery Oxygen Flow Rate 11/27/22 11:28 11/27/22 16:00 11/27/22 20:00 Temperature Pulse Rate 87 91 79 Respiratory Rate Blood Pressure Pulse Oximetry Oxygen Delivery Oxygen Flow Rate 11/28/22 00:00 11/28/22 04:22 11/28/22 04:00 Temperature 97.6 F Pulse Rate 75 77 85 Respiratory Rate 20 Blood Pressure 118/72 Pulse Oximetry 100 Oxygen Delivery Oxygen Flow Rate 11/27/22 21:35 11/28/22 01:00 11/28/22 08:39 Temperature Pulse Rate 88 Respiratory Rate Blood Pressure Pulse Oximetry 100 Oxygen Delivery Room Air Nasal Cannula Oxygen Flow Rate 2 11/28/22 08:50 11/28/22 09:50 Temperature Pulse Rate Respiratory Rate Blood Pressure Pulse Oximetry 99 96 Oxygen Delivery Nasal Cannula Room Air Oxygen Flow Rate 2 Intake/Output Intake/Output: Intake & Output 11/25/22 11/26/22 11/27/22 11/28/22 23:59 23:59 23:59 23:59 Intake Total 1020 150 Output To
[2022-11-28 12:07] LABS: Glucose Point of Care 124 mg/dl (65-105)
[2022-11-28 17:35] LABS: Glucose Point of Care 166 mg/dl (65-105)
[2022-11-28] MEDS: INSULIN GLARGINE (*BKC) 100 UNITS/ML 10 UNITS SUB-Q (21:07)
[2022-11-28 22:09] LABS: Glucose Point of Care 143 mg/dl (65-105)
[2022-11-29] VITALS (10 sets, daily range): BP systolic 106–114; BP diastolic 56–67; PULSE 69–85; RESP 16–18; TEMP 36.2–36.5; O2SAT 93–99
[2022-11-29] MEDS: FUROSEMIDE INJ 40 MG/4 ML VIAL IV PUSH ×2 (08:29→16:37)
[2022-11-29] MEDS: MAGNESIUM OXIDE 400 MG TABLET PO ×2 (08:29→16:37)
[2022-11-29] MEDS: carvediloL 3.125 MG TABLET PO (08:29)
[2022-11-29] MEDS: SPIRONOLACTONE 25 MG TABLET PO (08:29)
[2022-11-29] MEDS: SACUBITRIL/VALSARTAN 24-26 MG TABLET 1 TAB PO ×2 (08:29→20:33)
[2022-11-29] MEDS: EMPAGLIFLOZIN 10 MG TABLET PO (08:29)
[2022-11-29] MEDS: ENOXAPARIN 40 MG/0.4 ML SYRINGE SUB-Q (08:30)
[2022-11-29 08:38] LABS: Glucose Point of Care 90 mg/dl (65-105)
--- NOTE | 2022-11-29 10:11 | PM.PNCARD ---
Progress Note: A&P Assessment and Plan (1) Acute exacerbation of CHF (congestive heart failure): Qualifiers: Heart failure type: unspecified Qualified Code(s): I50.9 - Heart failure, unspecified Code(s): I50.9 - Heart failure, unspecified Status: Acute Plan 71-year-old man with nonischemic cardiomyopathy presents to the hospital for another symptomatic decompensation with volume overload. He is benefiting from IV furosemide and feels much better. He states that he was unable to get refills of his spironolactone which might be the reason for his recurrence/decompensation. I need to review the records in the office chart to determine if there was a reason for it the discontinuance of this agent. For now has been resume. I am going to advance his carvedilol dosage from the starting dose of 3.125-6.25 mg. Will continue IV furosemide for at least another day and chest a chest x-ray to assess the status of his pericardial effusions. Abilio Clifton MD [facility] Subjective Date/time seen: Date of service:11/29/22 10:11 Interval history: Follow-up visit in this 71-year-old man with: Significant nonischemic cardiomyopathy on standard guideline directed medical therapy. Presents to the hospital again with a symptomatic decompensation. He has now been hospitalized twice in the last 4 months with this type of problem. He feels well this morning he is seated in his room reading a book breathing is much better. Exam Const: General: comfortable and no acute distress Other: Pleasant elderly man appears to be very comfortable breathing room air reading his book HENMT: Mouth: Yes moist mucous membranes Eyes: Sclera: sclerae normal Neck: Neck: supple and no JVD Resp: Effort & Inspection: normal respiratory effort Other: breath sounds are dull at the bases no audible rales Cardio: Rate: regular rate Rhythm: regular rhythm Other: atrial sensing and ventricular pacing, the PMI is displaced no audible murmur GI: GI Palp: Yes Soft to palpation Auscultation: normal bowel sounds Skin: General skin exam: normal color Neuro: Other: alert and oriented x3 Extrem: Other: trivial amount of edema persists Objective Data Vital Signs Vital Signs: Vital Signs - 24 hr 11/28/22 12:00 11/28/22 13:50 11/28/22 16:00 Temperature 36.4 C Pulse Rate 84 77 77 Respiratory Rate 16 Blood Pressure 119/69 Pulse Oximetry 100 Oxygen Delivery 11/28/22 22:00 11/28/22 20:00 11/28/22 20:00 Temperature 36.9 C Pulse Rate 72 68 72 Respiratory Rate 16 16 Blood Pressure 118/75 Pulse Oximetry 94 94 Oxygen Delivery Room Air 11/29/22 00:00 11/29/22 04:00 11/29/22 06:00 Temperature 36.4 C L Pulse Rate 69 74 73 Respiratory Rate 16 Blood Pressure 114/66 Pulse Oximetry 93 Oxygen Delivery 11/29/22 08:29 Temperature Pulse Rate 79 Respiratory Rate Blood Pressure Pulse Oximetry Oxygen Delivery Intake/Output Intake/Output: Intake & Output 11/26/22 11/27/22 11/28/22 11/29/22 23:59 23:59 23:59 23:59 Intake Total 1020 1330 840 Output Total 3200 1200 Balance 8869 -5937 -360 Meds/Results Medications: Active Medications Generic Name Dose Route Start Last Admin Trade Name Freq PRN Reason Stop Dose Admin Aspirin 81 mg 11/28/22 09:00 11/28/22 08:39 Aspirin 81 Mg Enteric Tablet PO 81 mg Q48H CRISTI Administration Carvedilol 6.25 mg 11/30/22 09:00 Carvedilol 3.125 Mg Tablet PO DAILY CRISTI Dextrose 12.5 gm 11/27/22 13:40 Dextrose 50% 25 Gm/50 Ml Syringe IV PUSH PRN PRN Hypoglycemia Protocol Empagliflozin 10 mg 11/28/22 09:00 11/29/22 08:29 Empagliflozin 10 Mg Tablet PO 10 mg DAILY CRISTI Administration Enoxaparin Sodium 40 mg 11/28/22 09:00 11/29/22 08:30 Enoxaparin 40 Mg/0.4 Ml Syringe SUB-Q 40 mg DAILY CRISTI Administration Furosemide 40 mg 11/27/22
--- NOTE | 2022-11-29 11:28 | PM.IMPN ---
Progress Note: A&P Assessment and Plan (1) Acute on chronic combined systolic and diastolic CHF (congestive heart failure): Code(s): I50.43 - Acute on chronic combined systolic (congestive) and diastolic (congestive) heart failure Status: Acute Assessment and Plan: breathing is better continue entresto, spironolactone, lasix, carvedilol appreciate cardiology input (2) Nonischemic cardiomyopathy: Code(s): I42.8 - Other cardiomyopathies Status: Acute (3) Essential (primary) hypertension: Code(s): I10 - Essential (primary) hypertension Status: Acute (4) Insulin dependent type 2 diabetes mellitus: Code(s): E11.9 - Type 2 diabetes mellitus without complications; Z79.4 - group home (current) use of insulin Status: Acute Subjective Date/time seen: 11/29/22 11:28 Interval history: no complaints breathing is improved Exam Narrative: General: A well-developed male sitting in a chair at the side of the bed in no distress. Weight: 81.2 kg. BMI: 25.7. HEENT: PERRL, EOMI. Sclera anicteric. Oral mucosa moist. Neck: Supple. No significant JVD. Respiratory: Respirations are nonlabored and he is speaking in full sentences. Lung sounds are diminished at the bases with scattered crackles. Cardiovascular: Regular rate and rhythm with S1-S2. Soft murmur at the upper sternal border. Gastrointestinal: Abdomen is soft, nontender, and nondistended with positive bowel sounds. Skin: Warm and dry. Chronic hyperpigmentation of the lower legs. Extremities: No cyanosis or clubbing. 2+ hard pitting edema of the lower legs, softening towards the knees. Neurological: Alert. Cranial nerves 2-12 are grossly intact. No gross focal deficits to casual conversation. Psychiatric: Pleasant and cooperative with normal mood and affect. Judgment and insight intact. Objective Data Vital Signs Vital Signs: Vital Signs - 24 hr 11/28/22 12:00 11/28/22 13:50 11/28/22 16:00 Temperature 97.6 F Pulse Rate 84 77 77 Respiratory Rate 16 Blood Pressure 119/69 Pulse Oximetry 100 Oxygen Delivery 11/28/22 22:00 11/28/22 20:00 11/28/22 20:00 Temperature 98.4 F Pulse Rate 72 68 72 Respiratory Rate 16 16 Blood Pressure 118/75 Pulse Oximetry 94 94 Oxygen Delivery Room Air 11/29/22 00:00 11/29/22 04:00 11/29/22 06:00 Temperature 97.5 F L Pulse Rate 69 74 73 Respiratory Rate 16 Blood Pressure 114/66 Pulse Oximetry 93 Oxygen Delivery 11/29/22 08:29 11/29/22 08:00 Temperature Pulse Rate 79 Respiratory Rate Blood Pressure Pulse Oximetry Oxygen Delivery Room Air Intake/Output Intake/Output: Intake & Output 11/26/22 11/27/22 11/28/22 11/29/22 23:59 23:59 23:59 23:59 Intake Total 1020 1330 840 Output Total 3200 1200 Balance 1375 -2118 -609 Meds/Results Medications: Active Medications Generic Name Dose Route Start Last Admin Trade Name Freq PRN Reason Stop Dose Admin Aspirin 81 mg 11/28/22 09:00 11/28/22 08:39 Aspirin 81 Mg Enteric Tablet PO 81 mg Q48H CRISTI Administration Carvedilol 6.25 mg 11/30/22 09:00 Carvedilol 3.125 Mg Tablet PO DAILY CRISTI Dextrose 12.5 gm 11/27/22 13:40 Dextrose 50% 25 Gm/50 Ml Syringe IV PUSH PRN PRN Hypoglycemia Protocol Empagliflozin 10 mg 11/28/22 09:00 11/29/22 08:29 Empagliflozin 10 Mg Tablet PO 10 mg DAILY CRISTI Administration Enoxaparin Sodium 40 mg 11/28/22 09:00 11/29/22 08:30 Enoxaparin 40 Mg/0.4 Ml Syringe SUB-Q 40 mg DAILY CRISTI Administration Furosemide 40 mg 11/27/22 17:00 11/29/22 08:29 Furosemide Inj 40 Mg/4 Ml Vial IV PUSH 40 mg BID CRISTI Administration Glucagon 1 mg 11/27/22 13:40 Glucagon For Inj 1 Mg Vial IM PRN PRN Hypoglycemia Protocol Glucose 15 gm 11/27/22 13:40 Glucose Oral Gel 15 Gm Of Glucse In 37.5 Gm Tube PO PRN PRN Hypoglycemia Protocol Dextrose
[2022-11-29 11:49] LABS: Glucose Point of Care 109 mg/dl (65-105)
[2022-11-29 17:09] LABS: Glucose Point of Care 124 mg/dl (65-105)
[2022-11-29] MEDS: INSULIN GLARGINE (*BKC) 100 UNITS/ML 10 UNITS SUB-Q (20:33)
[2022-11-29 20:51] LABS: Glucose Point of Care 194 mg/dl (65-105)
[2022-11-30] VITALS (7 sets, daily range): BP systolic 103; BP diastolic 65; PULSE 68–75; RESP 18; TEMP 36.4; O2SAT 94
[2022-11-30] MEDS: FUROSEMIDE INJ 40 MG/4 ML VIAL IV PUSH (08:15)
[2022-11-30] MEDS: SACUBITRIL/VALSARTAN 24-26 MG TABLET 1 TAB PO (08:15)
[2022-11-30] MEDS: ENOXAPARIN 40 MG/0.4 ML SYRINGE SUB-Q (08:15)
[2022-11-30] MEDS: ASPIRIN 81 MG ENTERIC TABLET PO (08:16)
[2022-11-30] MEDS: carvediloL 3.125 MG TABLET 6.25 MG PO (08:16)
[2022-11-30] MEDS: MAGNESIUM OXIDE 400 MG TABLET PO (08:16)
[2022-11-30] MEDS: EMPAGLIFLOZIN 10 MG TABLET PO (08:16)
[2022-11-30] MEDS: SPIRONOLACTONE 25 MG TABLET PO (08:17)
[2022-11-30 08:39] LABS: Glucose Point of Care 78 mg/dl (65-105)
[2022-11-30] MEDS: EUCERIN CREAM 454 GM JAR 1 APPLIC TOPICAL (09:20)
--- NOTE | 2022-11-30 10:09 | PM.PNCARD ---
Progress Note: A&P Assessment and Plan (1) Acute exacerbation of CHF (congestive heart failure): Qualifiers: Heart failure type: unspecified Qualified Code(s): I50.9 - Heart failure, unspecified Code(s): I50.9 - Heart failure, unspecified Status: Acute Assessment and Plan: Acute on chronic systolic heart failure improved with IV diuretics. Breathing comfortably on room air Continue medical therapy for his CMY with entresto, coreg, spironolactone, and jardiance. Will check CXR Plan for discharge today with close outpatient follow up in our office. Subjective Date/time seen: 11/30/22 10:09 Interval history: Feeling much better this morning. Denies any shortness of breath. No chest pain or swelling. Review of Systems Review of Systems: All systems reviewed & are unremarkable except as noted in HPI and below Constitutional: Constitutional: Denies body ache(s) and Denies excessive sweating Eyes: Eyes: Denies blurry vision ENT: Reports Normal hearing present Cardiovascular: Cardiovascular: Denies chest pain, Reports leg edema and Reports dyspnea Respiratory: Respiratory: Reports dyspnea Gastrointestinal: Gastrointestinal: Denies vomiting Genitourinary: Genitourinary: Denies hematuria Musculoskeletal: Musculoskeletal: Denies joint swelling Integumentary/Breasts: Skin/Breast: Denies dry skin Neurologic: Reports Normal hearing present, Denies Abnormal speech present and Denies behavioral changes Psychiatric: Psychiatric: Denies anxiety and Denies behavioral changes Endocrine: Endocrine: Denies excessive sweating Hematologic/Lymphatic: Hematologic/Lymphatic: Denies easy bleeding Allergic/Immunologic: Allergic/Immunologic: Denies GI upset with certain foods Exam Narrative: Alert oriented appears stated age Const: General: comfortable and no acute distress Other: Pleasant elderly man appears to be very comfortable sitting in the chair HENMT: Face/Nose/Sinus: Normal nares present Mouth: Yes moist mucous membranes Eyes: General: appearance normal, both eyes and all related structures Sclera: sclerae normal Neck: Neck: supple and no JVD Thyroid: thyroid normal Carotids: no bruits Chest: Other: No reproducible chest wall pain to palpation Resp: Effort & Inspection: normal respiratory effort Auscultation: no rales and diminished lung sounds Other: breath sounds are dull at the bases no audible rales Cardio: Rate: regular rate Rhythm: regular rhythm and abnormal rhythm (V paced) Heart sounds: Murmur heart sound present GI: Inspection: non-distended Auscultation: normal bowel sounds Skin: General skin exam: normal color and no rashes or lesions noted Neuro: Cranial nerves: Yes Normal hearing present Speech: normal speech and No Abnormal speech present Motor exam (neuro): 5/5 motor strength present throughout Other: alert and oriented x3 Extrem: General: no edema Other: Psych: Mental Status: mental status grossly normal Affect: normal affect Objective Data Vital Signs Vital Signs: Vital Signs - 24 hr 11/29/22 14:02 11/29/22 12:00 11/29/22 16:00 Temperature 36.5 C Pulse Rate 72 71 74 Respiratory Rate 16 Blood Pressure 110/56 L Pulse Oximetry 99 Oxygen Delivery 11/29/22 20:12 11/29/22 20:00 11/30/22 00:00 Temperature 36.2 C L Pulse Rate 75 75 73 Respiratory Rate 18 Blood Pressure 106/67 Pulse Oximetry 94 Oxygen Delivery 11/30/22 04:54 11/30/22 04:00 11/30/22 08:16 Temperature 36.4 C Pulse Rate 71 69 75 Respiratory Rate 18 Blood Pressure 103/65 Pulse Oximetry 94 Oxygen Delivery 11/30/22 08:17 11/30/22 08:04 Temperature Pulse Rate 75 75 Respiratory Rate 18 Blood Pressure Pulse Oximetry 94 Oxygen Delivery Room Air Intake/Output Intake/Output: Intake & Output 11/27/22 11/28/22 11/29/22 11/30/22 23:59 23:59 23:59 23:59 Inta
--- NOTE | 2022-11-30 10:46 | PM.DS ---
DS: Admitting Diagnosis Discharge Date November 30, 2022 Admitting Diagnosis CHF exacerbation, acute on chronic systolic DS: Discharge Diagnosis Discharge Diagnosis (1) Acute on chronic combined systolic and diastolic CHF (congestive heart failure): Code(s): I50.43 - Acute on chronic combined systolic (congestive) and diastolic (congestive) heart failure Status: Acute Assessment and Plan: breathing is better continue entresto, spironolactone, lasix, carvedilol appreciate cardiology input (2) Nonischemic cardiomyopathy: Code(s): I42.8 - Other cardiomyopathies Status: Acute (3) Essential (primary) hypertension: Code(s): I10 - Essential (primary) hypertension Status: Acute (4) Insulin dependent type 2 diabetes mellitus: Code(s): E11.9 - Type 2 diabetes mellitus without complications; Z79.4 - superintendent container terminal (current) use of insulin Status: Acute DS: Summary Hospital Course Hospital Course: 71-year-old gentleman history of systolic CHF. Admitted for acute exacerbation. Came in with some volume overload. He was admitted and diuretics were adjusted. Vitals are otherwise stable he is ambulating and doing his normal activities. He can be discharged from hospital. Time Spent with Patient Time attestation: Total time spent providing and/or coordinating discharge services: Exam Narrative: General: A well-developed male sitting in a chair at the side of the bed in no distress. Weight: 81.2 kg. BMI: 25.7. HEENT: PERRL, EOMI. Sclera anicteric. Oral mucosa moist. Neck: Supple. No significant JVD. Respiratory: Respirations are nonlabored and he is speaking in full sentences. Lung sounds are diminished at the bases with scattered crackles. Cardiovascular: Regular rate and rhythm with S1-S2. Soft murmur at the upper sternal border. Gastrointestinal: Abdomen is soft, nontender, and nondistended with positive bowel sounds. Skin: Warm and dry. Chronic hyperpigmentation of the lower legs. Extremities: No cyanosis or clubbing. 2+ hard pitting edema of the lower legs, softening towards the knees. Neurological: Alert. Cranial nerves 2-12 are grossly intact. No gross focal deficits to casual conversation. Psychiatric: Pleasant and cooperative with normal mood and affect. Judgment and insight intact. DS: Data Data Completed and Pending Labs on day of discharge: Labs from last 24 hours 11/30/22 11/29/22 11/29/22 08:29 20:09 16:51 POC Capillary Glucose 78 194 H 124 H 11/29/22 11:39 POC Capillary Glucose 109 H Discharge Plan Discharge Attending physician on discharge: Abilio Lucia Consulting providers: Maxi Banda; Gregg Hazel Discharging Clinician: Abilio Lucia Patient Disposition: Home, Self-Care Activity: as tolerated Diet: as tolerated Patient Instructions: Antibiotic Form, Heart Failure (GEN), Pain Management (DC) Stand Alone Forms: General Discharge Information Follow-up/Referrals: Gregg Hazel MD [Physician] - Maxi Banda, [Physician] - Discharge Medications: New carvedilol [Coreg] 3.125 mg Tablet 6.25 mg PO DAILY 30 Days Qty: 60 0RF Continued magnesium oxide 400 mg (241.3 mg magnesium) tablet 500 mg PO BID Jardiance 10 mg Tablet 10 mg PO DAILY Qty: 30 0RF Entresto 24-26 mg Tablet 1 tab PO Q12HR Qty: 60 0RF aspirin 81 mg tablet,delayed release (DR/EC) 81 mg PO EVERY OTHER DAY Rx Instructions: due 07/17/22 insulin aspart U-100 [Novolog U-100 Insulin aspart] 100 unit/mL Solution 1 sliding scale dose SUBCUT USEASDIRECTD Levemir U-100 Insulin 100 unit/mL Solution 10 unit SUBCUT HS spironolactone 25 mg Tablet 25 mg PO QAM 30 Days Qty: 30 0RF Patient Comments: could not get a refill unsure if meant to take anymore. (DME) insulin syringe-needle U-100 [[facility]ocate Syringes] 0.3 mL 31 gauge x 5/16 syringe See Rx Instructi
[2022-11-30 11:50] LABS: Glucose Point of Care 259 mg/dl (65-105)
[2022-11-30] MEDS: INSULIN ASPART (*BKC) 100 UNITS/ML SUB-Q (12:18)
== END 2022-11-30 13:47 | disposition home or self-care (01) ==
LOC: ANHED 11:09 → ANH2MED 11:10
PROVIDERS: Admitting Provider Chiropractor; Emergency Provider Preventive Medicine Aerospace Medicine; Visit Provider Chiropractor
DX: I11.0 Hypertensive heart disease with heart failure (principal); I50.43 Acute on chronic combined systolic (congestive) and diastolic (congestive) heart failure; R06.02 Shortness of breath; E78.5 Hyperlipidemia, unspecified; I42.8 Other cardiomyopathies; E11.51 Type 2 diabetes mellitus with diabetic peripheral angiopathy without gangrene; E11.42 Type 2 diabetes mellitus with diabetic polyneuropathy; E11.59 Type 2 diabetes mellitus with other circulatory complications; I15.2 Hypertension secondary to endocrine disorders; F32.A Depression, unspecified; Z79.4 Long term (current) use of insulin; Z79.82 Long term (current) use of aspirin; Z95.0 Presence of cardiac pacemaker; Z79.84 Long term (current) use of oral hypoglycemic drugs
CPT/HCPCS: 36415; 71045; 71046; 80048; 80053; 82948; 83735; 83880; 84484; 85025; 93005; 96372; 96374; 96376; 99285; A9270; G0378; J1650; J1815; J1940

== ENCOUNTER 2023-07-25 22:22 | Emergency (ER) | payer MEDICARE, MEDICAID, SELFPAY ==
[2023-07-25 22:22] VITALS: BP 122/71; PULSE 94; RESP 17; TEMP 36.9; O2SAT 100
--- NOTE | 2023-07-25 22:23 | ECG_ITS ---
Measurements Intervals [place] Rate: 91 P: 104 AL: 212 QRS: 264 QRSD: 174 T: 84 QT: 423 AVG RR 657 QTc: 472 QTcB 521 QTcF 486 Interpretive Statements ELECTRONIC VENTRICULAR PACEMAKER ABNORMAL RHYTHM ECG SEE SCANNED COPY FOR SIGNATURE MTDD
[2023-07-25 22:28] VITALS: PULSE 94
[2023-07-25 22:30] VITALS: BP 122/71; PULSE 92; RESP 17; TEMP 36.9; O2SAT 100
[2023-07-25 22:48] LABS: Basophils Percent Auto 0.5 % (0.2-1.2); Eosinophils Absolute Auto 0.1 K/mm3 (0-0.3); Eosinophils Percent Auto 1.9 % (0-4.4); Hematocrit 36.2 % (42.0-52.0); Hemoglobin 11.1 g/dL (14.0-18.0); Immature Granulocyte Absolute 0.03 K/mm3 (0.00-0.031); Immature Granulocyte Percent A 0.4 % (0-0.5); Lymphocytes Absolute Auto 0.71 K/mm3 (0.9-3.2); Lymphocytes Percent Auto 9.5 % (18.3-44.2); Mean Corpuscular HGB Conc 30.7 g/dl (32-36); Mean Corpuscular Hemoglobin 27.3 pg (26-34); Mean Corpuscular Volume 89.2 fl (80-100); Mean Platelet Volume 9.6 fl (7.4-10.4); Monocytes Absolute Auto 0.9 K/mm3 (0.1-0.6); Monocytes Percent Auto 12.4 % (2.6-8.5); Neutrophils Absolute Auto 5.7 K/mm3 (1.3-6.7); Neutrophils Percent Auto 75.3 % (45.5-73.1); Platelet Count Result 315 k/mm3 (150-375); Red Blood Count 4.06 M/mm3 (4.6-6.20); Red Cell Distribution Width 13.8 % (11.5-14.5); White Blood Count 7.5 K/mm3 (4.5-10.0)
[2023-07-25 22:57] LABS: Ethanol < 10 mg/dL (<10)
[2023-07-25 23:09] LABS: Alanine Aminotransferase 14 U/L (6-50); Albumin Level 3.9 g/dL (3.5-5.1); Alkaline Phosphatase 150 U/L (38-126); Anion Gap 7 mmol/L (4-12); Aspartate Amino Transferase 23 U/L (17-59); Bilirubin,Total 0.7 mg/dL (0.2-1.3); Blood Urea Nitrogen 19 mg/dL (9-20); Calcium 8.9 mg/dL (8.4-10.2); Carbon Dioxide 28 mmol/L (22-30); Chloride 98 mmol/L (98-107); Estimated CRCL calculation 59 ml/min; Estimated Glomerular Filt Rate > 60; Glucose 229 mg/dL (65-110); Potassium 3.7 mmol/L (3.4-5.0); Sodium 133 mmol/L (137-145)
[2023-07-25 23:24] LABS: Influenza A QL RT-PCR Negative (Negative); Influenza B QL RT-PCR Negative (Negative); RSV RNA, RT-PCR Negative (Negative); SARS-CoV-2 RNA PCR Negative (Negative)
[2023-07-26 00:05] LABS: Free T4 Free Thyroxine Reflex 1.59 ng/dL (0.78-2.19)
[2023-07-26 00:09] LABS: Magnesium 2.5 mg/dL (1.6-2.3)
[2023-07-26 00:22] LABS: NT Pro B Type Natriuretic Pept 4260 pg/mL (19.9-100); Troponin I < 0.012 ng/mL (0.000-0.034)
[2023-07-26 00:36] LABS: Appearance Urine Clear (Clear); Bilirubin Urine Negative (Negative); Blood Urine Negative (Negative); Color Urine Yellow (Yellow); Glucose Urine UA 3+ mg/dL (Negative); Ketones Urine Negative (Negative); Leukocyte Esterase Ur Negative LEU/UL (Negative); Nitrate Urine Negative (Negative); Protein Urine Negative (Negative); Specific Grav Ur 1.022 (1.001-1.035); pH Urine 5.5 (5.0-9.0)
[2023-07-26 00:37] LABS: Lactic Acid Reflex 1.3 mmol/L (0.7-2.0)
[2023-07-26 00:52] LABS: Amphetamine Screen Urine Negative (Negative); Barbiturate Screen Urine Negative (Negative); Benzodiazepines Screen Urine Negative (Negative); Cannabinoid Screen Urine Negative (Negative); Cocaine Screen Urine Negative (Negative); Methadone Screen Urine Negative (Negative); Opiate Screen Urine Negative (Negative); Phencyclidine Screen Urine Negative (Negative)
[2023-07-26 01:02] LABS: Total Triiodothyronine (T3) 0.77 NG/ML (0.97-1.69)
[2023-07-26 01:04] LABS: Add Urine Microscopic? NO
--- NOTE | 2023-07-26 02:05 | ED.GENADULT ---
HPI - General Adult General Chief complaint: Dizziness Stated complaint: LIGHTHEADEDNESS X 3 DAYS Time Seen by Provider: 07/25/23 23:13 History of Present Illness HPI narrative: Patient is 72-year-old gentleman presents emergency department chief complaint of dizziness patient reports the last 3 days he has had episodes of lightheadedness and feeling like the room spinning. Patient reports symptoms are worse with laying down patient states that since he has arrived in the emergency department he feels much better patient denies any chest pain denies any discharges of his AICD. Related Data Home Medications Medication Instructions Recorded Confirmed magnesium oxide 400 mg (241.3 mg 500 mg PO BID 05/20/20 11/27/22 magnesium) tablet aspirin 81 mg tablet,delayed 81 mg PO EVERY OTHER DAY 07/16/22 11/27/22 release insulin aspart U-100 100 unit/mL 1 sliding scale dose subcut 07/16/22 11/27/22 subcutaneous solution (Novolog USEASDIRECTD U-100 Insulin aspart) insulin detemir U-100 100 unit/mL 10 unit subcut HS 07/16/22 11/27/22 subcutaneous solution (Levemir U-100 Insulin) Allergies Allergy/AdvReac Type Severity Reaction Status Date / Time Penicillins Allergy Mild Unknown Verified 07/25/23 22:33 Review of Systems Review of Systems: A 10 system review of systems was completed on the patient and is negative except for what is stated in the HPI. Nursing and ancillary documentation was reviewed. [facility] Past Medical History Medical History Apical mural thrombus Complete heart block Depression Diabetic peripheral neuropathy Dyslipidemia Essential (primary) hypertension Heart failure with reduced ejection fraction Insulin dependent type 2 diabetes mellitus Nonischemic cardiomyopathy Nonsustained ventricular tachycardia Paroxysmal atrial tachycardia Peripheral arterial disease Shoulder fracture, left Vitamin D deficiency Surgical History Surgical History History of complete ray amputation of third toe of right foot (05/2020) Due to osteomyelitis. History of permanent cardiac pacemaker placement (07/2019) Medtronic BiV-ICD placed at [facility]. Family History Family History Other No problems noted. Sibling Acute myocardial infarction Mother Lung cancer Social History Social History Social History: Surrogate medical decision maker: Adrianne Pa, niece. Code status: Full code. Smoking status: Never smoker Second hand tobacco smoke exposure: No Alcohol intake: never Substance use: never Lack of Transportation: No Lack of Food: Never True Current Housing: I Have Housing Concerned About Future Housing: No Difficulty Paying Gas/Electric Bills: No Difficulty Paying for Meds: No Currently Unemployed: No Education: Master's Degree or Higher Difficulty w/ Childcare or Family Care: No Living arrangements: with family Additional living arrangements comments: Lives with [id number]. . His in only daughter were killed in a car accident. 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 Spiritual care concerns: No Agree to blood products: Yes Exam Narrative: GENERAL: Well-appearing, well-nourished, and in no acute distress. HEAD: Normocephalic, atraumatic. EYES: PERRLA and EOMI. ENT: Nares clear, no rhinorrhea or epistaxis. Mucous membranes moist. NECK: Supple. CHEST: Clear to auscultation. No respiratory distress. HEART: Regular rate and rhythm. No murmur heard. Normal peripheral pulses. ABDOMEN: Soft, nontender, nondistended, normal active bowel sounds. EXTREMITIES: Normal range of motion. No edema. SKIN: Warm, dry, no rash. NEURO: No foca
[2023-07-26 02:20] VITALS: BP 104/79; PULSE 81; RESP 24; O2SAT 100
[2023-07-26 02:29] LABS: Troponin I < 0.012 ng/mL (0.000-0.034)
== END 2023-07-26 02:20 | disposition home or self-care (01) ==
PROVIDERS: Emergency Provider Emergency Medicine
DX: R42 Dizziness and giddiness (principal); Z20.822 Contact with and (suspected) exposure to COVID-19; F32.A Depression, unspecified; E11.42 Type 2 diabetes mellitus with diabetic polyneuropathy; Z79.4 Long term (current) use of insulin; I11.0 Hypertensive heart disease with heart failure; I50.9 Heart failure, unspecified; R94.31 Abnormal electrocardiogram [ECG] [EKG]
CPT/HCPCS: 36415; 80053; 80307; 81003; 82948; 83605; 83735; 83880; 84439; 84443; 84480; 84484; 85025; 87637; 93005; 99284

== ENCOUNTER 2023-07-26 17:47 | Emergency (ER) | payer MEDICARE, MEDICAID, SELFPAY ==
--- NOTE | 2023-07-26 17:50 | ECG_ITS ---
Measurements Intervals [place] Rate: 100 P: 66 IL: 159 QRS: 251 QRSD: 185 T: 71 QT: 413 Avg RR 578 QTc: 473 QTcB 543 QTcF 495 Interpretive Statements ELECTRONIC VENTRICULAR PACEMAKER ABNORMAL RHYTHM ECG INTERPRETATION BASED ON A DEFAULT AGE OF 40 YEARS SEE SCANNED COPY FOR SIGNATURE MTDD
--- NOTE | 2023-07-26 17:52 | ED.SOB ---
HPI - SOB/Dyspnea General Chief Complaint: Dizziness Stated Complaint: Dizziness Time Seen by Provider: 07/26/23 17:50 Source: patient Mode of arrival: ambulatory Limitations: no limitations History of Present Illness HPI Narrative: Mr. Pa is a 72-year-old male patient presenting to the clinic today with complaints of increased worsening of dizziness. He reports he was seen last night in the ER at [place] for the dizziness and was discharged home around 230 this morning. He reports associated shortness of breath. Dizziness is worse with movement. Also developed ringing in his right ear around 7:00 a.m. this morning. History of congestive heart failure, diabetes, complete heart block-AICD, hyperlipidemia, PAD, depression, cardiomyopathy. Related Data Home Medications Medication Instructions Recorded Confirmed magnesium oxide 400 mg (241.3 mg 500 mg PO BID 05/20/20 11/27/22 magnesium) tablet aspirin 81 mg tablet,delayed 81 mg PO EVERY OTHER DAY 07/16/22 11/27/22 release insulin aspart U-100 100 unit/mL 1 sliding scale dose subcut 07/16/22 11/27/22 subcutaneous solution (Novolog USEASDIRECTD U-100 Insulin aspart) insulin detemir U-100 100 unit/mL 10 unit subcut HS 07/16/22 11/27/22 subcutaneous solution (Levemir U-100 Insulin) Allergies Allergy/AdvReac Type Severity Reaction Status Date / Time Penicillins Allergy Mild Unknown Verified 07/25/23 22:33 Review of Systems Review of Systems: Pertinent positives per HPI. Patient denies any fever, chills, rash, headache, visual changes, cough, runny nose, sore throat, chest pain, palpitations, nausea, vomiting, diarrhea, constipation, abdominal pain, or any urinary issues. [facility] Past Medical History Medical History Apical mural thrombus Complete heart block Depression Diabetic peripheral neuropathy Dyslipidemia Essential (primary) hypertension Heart failure with reduced ejection fraction Insulin dependent type 2 diabetes mellitus Nonischemic cardiomyopathy Nonsustained ventricular tachycardia Paroxysmal atrial tachycardia Peripheral arterial disease Shoulder fracture, left Vitamin D deficiency Surgical History Surgical History History of complete ray amputation of third toe of right foot (05/2020) Due to osteomyelitis. History of permanent cardiac pacemaker placement (07/2019) Medtronic BiV-ICD placed at [facility]. Family History Family History Other No problems noted. Sibling Acute myocardial infarction Mother Lung cancer Social History Social History Social History: Surrogate medical decision maker: Adrianne Pa, niece. Code status: Full code. Smoking status: Never smoker Second hand tobacco smoke exposure: No Alcohol intake: never Substance use: never Substance use type: does not use Lack of Transportation: No Lack of Food: Never True Current Housing: I Have Housing Concerned About Future Housing: No Difficulty Paying Gas/Electric Bills: No Difficulty Paying for Meds: No Currently Unemployed: No Education: Master's Degree or Higher Difficulty w/ Childcare or Family Care: No Living arrangements: with family Additional living arrangements comments: Lives with [id number]. . His in only daughter were killed in a car accident. 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 Spiritual care concerns: No Agree to blood products: Yes Comments At the time of my signature, I reviewed and agree with the nursing past medical, surgical, social, and family history. There is no relevant family history pertinent to the patient complaint. Exam Narrative: General: Well-developed, frail, pale appe
[2023-07-26 17:55] LABS: Glucose Point of Care 280 mg/dl (65-105)
[2023-07-26 17:58] VITALS: BP 133/64; RESP 16; TEMP 37.2; O2SAT 100
== END 2023-07-26 18:20 | disposition short-term general hospital (02) ==
PROVIDERS: Emergency Provider Nurse Practitioner Family
DX: R06.02 Shortness of breath (principal); H93.11 Tinnitus, right ear; F32.A Depression, unspecified; E11.42 Type 2 diabetes mellitus with diabetic polyneuropathy; Z79.4 Long term (current) use of insulin; E78.5 Hyperlipidemia, unspecified; I10 Essential (primary) hypertension; I11.0 Hypertensive heart disease with heart failure; R50.9 Fever, unspecified; I73.9 Peripheral vascular disease, unspecified; Z95.810 Presence of automatic (implantable) cardiac defibrillator
CPT/HCPCS: 82948; 93005; 99215; G0463

== ENCOUNTER 2023-07-26 18:36 | Inpatient (IN) | payer MEDICARE, MEDICAID, SELFPAY ==
--- NOTE | ~2023-07-26 | XR_ITS ---
XR chest 1V 07/26/2023 20:10 Indication: Weakness and shortness of breath Procedure: AP view of the chest Comparison: No prior studies for comparison. Findings: Cardiomegaly. Bilateral pleural effusions, possibly loculated. Bibasilar airspace disease, left greater than right. Pacemaker leads are present. No pneumothorax. Impression: 1: Bibasilar airspace disease may represent atelectasis or pneumonia. 2: Bilateral pleural effusions, left greater than right, possibly loculated. 3: Cardiomegaly. Reviewed, dictated and finalized at location A. Impression: 1: Bibasilar airspace disease may represent atelectasis or pneumonia. 2: Bilateral pleural effusions, left greater than right, possibly loculated. 3: Cardiomegaly.
--- NOTE | ~2023-07-26 | CT_ITS ---
EXAMINATION: CT brain wo con DATE: 07/26/2023 20:33 INDICATION: Dizziness TECHNIQUE: Computed tomography (CT) of the head was performed without intravenous contrast. The dose- length product was 756.67 mGy-cm. Automated exposure control and iterative reconstruction technique w ere employed. COMPARISON: None FINDINGS: Generalized atrophy. There is intracranial atherosclerosis. Chronic right frontal lobe infa rction. Chronic left occipital lobe infarction. No ventriculomegaly or midline shift. Basilar cistern s are patent. There are scattered mild periventricular and subcortical white matter changes, most lik shay related to small vessel ischemic disease (microangiopathy). Paranasal sinuses and mastoids are pn eumatized. There is intracranial atherosclerosis. Midline sagittal images are unremarkable. No acute intracranial hemorrhage or infarction. IMPRESSION: 1. No acute intracranial abnormality. 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 3: Chronic age-related findings. Reviewed, dictated and finalized at location A.
[2023-07-26 18:44] VITALS: BP 123/55; PULSE 65; RESP 16; TEMP 36.4; O2SAT 100
--- NOTE | 2023-07-26 18:54 | PC.NURSE ---
Pt agitated about changing clothes, states it is against his mandaeism to take off his shoes, attempting to leave department. RN instructed pt we can not let him leave due to S/I plan. Pt keeps stating It is against my mandaeism to take off my shoes!!! Pt states he Jeans ccan't remove his pants without taking his shoes off.Just cut my pants off Pt cooperative with putting on green psych scrubs. Refuses to remove shoes.
[2023-07-26 19:14] LABS: Basophils Percent Auto 0.2 % (0.2-1.2); Eosinophils Percent Auto 0.1 % (0-4.4); Hematocrit 36.8 % (42.0-52.0); Hemoglobin 11.5 g/dL (14.0-18.0); Immature Granulocyte Absolute 0.04 K/mm3 (0.00-0.031); Immature Granulocyte Percent A 0.5 % (0-0.5); Lymphocytes Absolute Auto 0.71 K/mm3 (0.9-3.2); Lymphocytes Percent Auto 8.3 % (18.3-44.2); Mean Corpuscular HGB Conc 31.3 g/dl (32-36); Mean Corpuscular Hemoglobin 27.6 pg (26-34); Mean Corpuscular Volume 88.2 fl (80-100); Mean Platelet Volume 9.9 fl (7.4-10.4); Monocytes Absolute Auto 0.8 K/mm3 (0.1-0.6); Monocytes Percent Auto 9.2 % (2.6-8.5); Neutrophils Percent Auto 81.7 % (45.5-73.1); Platelet Count Result 341 k/mm3 (150-375); Red Blood Count 4.17 M/mm3 (4.6-6.20); Red Cell Distribution Width 13.8 % (11.5-14.5); White Blood Count 8.6 K/mm3 (4.5-10.0)
[2023-07-26 19:26] LABS: Ethanol < 10 mg/dL (<10)
[2023-07-26 19:27] LABS: Alanine Aminotransferase 16 U/L (6-50); Alkaline Phosphatase 148 U/L (38-126); Anion Gap 6 mmol/L (4-12); Aspartate Amino Transferase 26 U/L (17-59); Bilirubin,Total 0.8 mg/dL (0.2-1.3); Blood Urea Nitrogen 20 mg/dL (9-20); Calcium 8.9 mg/dL (8.4-10.2); Carbon Dioxide 30 mmol/L (22-30); Chloride 98 mmol/L (98-107); Estimated Glomerular Filt Rate > 60; Glucose 254 mg/dL (65-110); Potassium 4.1 mmol/L (3.4-5.0); Sodium 134 mmol/L (137-145)
[2023-07-26 20:03] LABS: Amphetamine Screen Urine Negative (Negative); Barbiturate Screen Urine Negative (Negative); Benzodiazepines Screen Urine Negative (Negative); Cannabinoid Screen Urine Negative (Negative); Cocaine Screen Urine Negative (Negative); Methadone Screen Urine Negative (Negative); Opiate Screen Urine Negative (Negative); Phencyclidine Screen Urine Negative (Negative)
[2023-07-26 20:06] VITALS: BP 125/72; BP 79/47; BP 80/49; PULSE 104; PULSE 108; PULSE 96
[2023-07-26 20:07] LABS: Magnesium 2.5 mg/dL (1.6-2.3)
[2023-07-26 20:11] LABS: INR 1.2; Prothrombin Time 15.6 Seconds (11.1-14.7)
[2023-07-26 20:14] LABS: Acetaminophen < 10 ug/mL (10-30); Salicylate < 1.0 mg/dL (2-20)
[2023-07-26 20:20] LABS: Troponin I 0.017 ng/mL (0.000-0.034)
[2023-07-26 20:31] LABS: Lactic Acid Reflex 1.4 mmol/L (0.7-2.0)
[2023-07-26 20:35] LABS: Procalcitonin 0.4 ng/mL
--- NOTE | 2023-07-26 20:41 | ED.GENADULT ---
HPI - General Adult General Chief complaint: Psychiatric Symptoms Stated complaint: dizzy light headed cough Time Seen by Provider: 07/26/23 19:21 History of Present Illness HPI narrative: Patient is 72-year-old gentleman who presents emergency department with chief complaint of dizziness the patient was seen in the emergency department last night patient did have episodes of depression but last night denied being suicidal upon direct questioning by myself. Patient went to urgent care today after he started having dizziness again that he described as a lightheaded and also room spinning. The patient denied syncope did report that you made comments at urgent care that he wanted to harm himself currently the patient does deny that he is suicidal at this moment. Related Data Home Medications Medication Instructions Recorded Confirmed magnesium oxide 400 mg (241.3 mg 500 mg PO BID 05/20/20 11/27/22 magnesium) tablet aspirin 81 mg tablet,delayed 81 mg PO EVERY OTHER DAY 07/16/22 11/27/22 release insulin aspart U-100 100 unit/mL 1 sliding scale dose subcut 07/16/22 11/27/22 subcutaneous solution (Novolog USEASDIRECTD U-100 Insulin aspart) insulin detemir U-100 100 unit/mL 10 unit subcut HS 07/16/22 11/27/22 subcutaneous solution (Levemir U-100 Insulin) Allergies Allergy/AdvReac Type Severity Reaction Status Date / Time Penicillins Allergy Mild Unknown Verified 07/25/23 22:33 Review of Systems Review of Systems: A 10 system review of systems was completed on the patient and is negative except for what is stated in the HPI. Nursing and ancillary documentation was reviewed. [facility] Past Medical History Medical History Apical mural thrombus Complete heart block Depression Diabetic peripheral neuropathy Dyslipidemia Essential (primary) hypertension Heart failure with reduced ejection fraction Insulin dependent type 2 diabetes mellitus Nonischemic cardiomyopathy Nonsustained ventricular tachycardia Paroxysmal atrial tachycardia Peripheral arterial disease Shoulder fracture, left Vitamin D deficiency Surgical History Surgical History History of complete ray amputation of third toe of right foot (05/2020) Due to osteomyelitis. History of permanent cardiac pacemaker placement (07/2019) Medtronic BiV-ICD placed at [facility]. Family History Family History Other No problems noted. Sibling Acute myocardial infarction Mother Lung cancer Social History Social History Social History: Surrogate medical decision maker: Adrianne Pa nicandice. Code status: Full code. Smoking status: Never smoker Second hand tobacco smoke exposure: No Alcohol intake: never Substance use: never Substance use type: does not use Lack of Transportation: No Lack of Food: Never True Current Housing: I Have Housing Concerned About Future Housing: No Difficulty Paying Gas/Electric Bills: No Difficulty Paying for Meds: No Currently Unemployed: No Education: Master's Degree or Higher Difficulty w/ Childcare or Family Care: No Living arrangements: with family Additional living arrangements comments: Lives with [id number]. . His in only daughter were killed in a car accident. 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 Spiritual care concerns: No Agree to blood products: Yes Exam Narrative: GENERAL: Well-appearing, well-nourished, and in no acute distress. HEAD: Normocephalic, atraumatic. EYES: PERRLA and EOMI. ENT: Nares clear, no rhinorrhea or epistaxis. Mucous membranes moist. There is cerumen impaction the right external auditory canal NECK: Supple. CHEST:
[2023-07-26 20:57] LABS: Influenza A QL RT-PCR Negative (Negative); Influenza B QL RT-PCR Negative (Negative); RSV RNA, RT-PCR Negative (Negative); SARS-CoV-2 RNA PCR Negative (Negative)
[2023-07-26] MEDS: HYDROGEN PEROXIDE 3% SOLN(*SP) 473 ML BOTTLE (21:09)
[2023-07-26 21:20] LABS: Free T4 Free Thyroxine Reflex 1.51 ng/dL (0.78-2.19)
[2023-07-26] MEDS: SODIUM CHLORIDE 0.9% IV 1,000 ML 75 ML IV CONT (22:13)
[2023-07-26 22:18] VITALS: PULSE 92; RESP 16; O2SAT 97
[2023-07-26 22:19] VITALS: BP 132/69; PULSE 93; RESP 16; O2SAT 100
--- NOTE | 2023-07-26 22:22 | ECG_ITS ---
SEE SCANNED COPY FOR CONFIRMED REPORT. MTDD
[2023-07-26 22:40] LABS: Troponin I 0.013 ng/mL (0.000-0.034)
--- NOTE | 2023-07-26 23:07 | PC.NURSE ---
patient being admitted with IV fluids infusing per order.
[2023-07-26 23:30] VITALS: BP 114/71; PULSE 94; RESP 18; TEMP 37.1; O2SAT 100
--- NOTE | 2023-07-26 23:41 | ADMIMU ---
This patient, Dimitry Pa, was admitted to IMU status, and placed in Intensive Care Unit-4. Patient/family oriented to hospital policies and general routines including ID bracelet, bed and alarms, visiting hours, pain management, procedures, bathroom and other care routines, personal items, smoking policy, room service/diet, and visiting hours. Valuables list has been completed. Information on how to activate the Rapid Response Team has been discussed. Patient/Family are encouraged to report perceived risks to care and to ask questions if they do not understand what they are told or what they should do.
[2023-07-26 23:42] VITALS: BMI 20.2
[2023-07-27] VITALS (19 sets, daily range): BP systolic 84–141; BP diastolic 44–65; PULSE 58–101; RESP 13–26; TEMP 36.6–37.4; O2SAT 92–100
[2023-07-27 04:26] LABS: Troponin I 0.014 ng/mL (0.000-0.034)
--- NOTE | 2023-07-27 09:48 | PM.IMHP ---
H&P: HPI History of Present Illness Date/Time: 07/27/23 09:48 Chief Complaint: Dizziness Narrative: 72yo male with diabetes mellitus, hypertension, complete heart block status post pacemaker with ICD, nonischemic cardiomyopathy with systolic CHF and depression here for dizziness and concerns for suicidal ideation. Patient seen in emergency room 1 day to admission for 3 day history dizziness with episodes of lightheadedness and room spinning. Symptoms wound was worse with laying down during discharge from ICD. Viral nasal swab was negative. Patient's complaint depression but denied suicidal ideation to the defibrillator was interrogated at the were no runs of nonsustained V-tach. Laboratory workup was unrevealing. Mellen suicide severity risk assessment showed no risk indicated. Patient was discharged home on bowling ball finisher of July 25. Patient stated he had right ear ringing later that morning. He also had worsening dizziness and associated SOB. He was seen at the [facility] later in the evening. He was found to have right ear cerumen impaction that was removed. During the stay, the patient had depressed nood and affect with suicidal ideation without plan - stating he just wishes he would . He was sent to the ED for evaluation. He denied feeling suicidal or homicidal. he does feel sad about the passing of multiple family members. No hx of suicide sttempts or psychiatric hopsital stays. He states he has been feeling dizzy and nuaseous for the past 5 days. No emesis. No fever or chills. He has had very little to eat over the past 5 days. Does have cough productive clear sputum this related to postnasal drainage. He denies seasonal allergies. He denies odynophagia or dysphagia. He denies chest pain, shortness of breath or palpitations. His dizziness is usually with standing knees lightheaded and is worse in the morning. No syncope. No falls. He is compliant with his home medications. His blood pressure at home has been running systolic 116. He has lost about 10 lb recently. He denies any headaches, vision changes, diarrhea, constipation, abdominal pain, back pain, dysuria, hematuria. No numbness, tingling or weakness in his extremities. No falls or syncope. Walks unassisted. He was sent to the ED via ambulance. In the ED, he was orthostatic with SBP 125 lying and 80 standing. Troponin negative x 3. No significnat lab abnormalities. TSH 5.2. PCT 0.4. UA negative from prior ED visit. CXR showing bibasilar airspace disease and bilateral pleural effusions. L>R possibly loculated (seen on prior imaging). CT brain showing no acute intracranial abnormalities but chronic right frontal and left occipital lobe infarcts. He was given IV fluids and admitted for further care. He feels better this morning. He denies suicidal ideation. No weapons at home. Never seen a psychiatrist or been on anti-depressants. He has some family members that he is close with. He refuses to have his feet examined due to his presybeterian beliefs. Chart review show a psychiatric consult on 07/31/20 and this was reviewed. Review of Systems Review of Systems: All systems reviewed & are unremarkable except as noted in HPI and below PMFSH Past Medical History Medical History Apical mural thrombus Complete heart block Depression Diabetic peripheral neuropathy Dyslipidemia Essential (primary) hypertension Heart failure with reduced ejection fraction Insulin dependent type 2 diabetes mellitus Nonischemic cardiomyopathy Nonsustained ventricular tachycardia Paroxysmal atrial tachycardia Peripheral arterial disease Shoulder fracture, left Vitamin D deficiency Surgical History Surgical History History of complete ray amputation of third toe of right foot (05/2020) Due to osteomyelitis. History of permanent cardiac pacemaker placement (07/2019) Medtronic BiV-ICD p
[2023-07-27 11:07] LABS: Basophils Percent Auto 0.2 % (0.2-1.2); Hematocrit 33.8 % (42.0-52.0); Hemoglobin 10.5 g/dL (14.0-18.0); Immature Granulocyte Absolute 0.04 K/mm3 (0.00-0.031); Immature Granulocyte Percent A 0.4 % (0-0.5); Lymphocytes Absolute Auto 0.42 K/mm3 (0.9-3.2); Lymphocytes Percent Auto 4.6 % (18.3-44.2); Mean Corpuscular HGB Conc 31.1 g/dl (32-36); Mean Corpuscular Hemoglobin 27.3 pg (26-34); Mean Platelet Volume 9.6 fl (7.4-10.4); Monocytes Absolute Auto 0.7 K/mm3 (0.1-0.6); Monocytes Percent Auto 7.8 % (2.6-8.5); Neutrophils Absolute Auto 7.9 K/mm3 (1.3-6.7); Platelet Count Result 279 k/mm3 (150-375); Red Blood Count 3.84 M/mm3 (4.6-6.20); Red Cell Distribution Width 13.7 % (11.5-14.5); White Blood Count 9.1 K/mm3 (4.5-10.0)
[2023-07-27] MEDS: SODIUM CHLORIDE 0.9% IV 1,000 ML 75 ML IV CONT (11:20)
[2023-07-27 11:32] LABS: Albumin Level 3.7 g/dL (3.5-5.1); Anion Gap 9 mmol/L (4-12); Blood Urea Nitrogen 17 mg/dL (9-20); Calcium 8.7 mg/dL (8.4-10.2); Carbon Dioxide 25 mmol/L (22-30); Chloride 102 mmol/L (98-107); Estimated CRCL calculation 68 ml/min; Estimated Glomerular Filt Rate > 60; Glucose 244 mg/dL (65-110); Potassium 3.7 mmol/L (3.4-5.0); Sodium 136 mmol/L (137-145)
[2023-07-27 11:39] LABS: Glucose Point of Care 233 mg/dl (65-105)
[2023-07-27] MEDS: INSULIN ASPART (*BKC) 100 UNITS/ML SUB-Q ×2 (12:23→17:29)
[2023-07-27 12:44] LABS: Vitamin D 25 Hydroxy < 12.8 ng/mL
[2023-07-27 16:19] LABS: Glucose Point of Care 215 mg/dl (65-105)
[2023-07-27 17:48] LABS: Hemoglobin A1C 8.5 % (<5.7)
[2023-07-27 20:26] LABS: Glucose Point of Care 148 mg/dl (65-105)
[2023-07-27] MEDS: SACUBITRIL/VALSARTAN 24-26 MG TABLET 1 TAB PO (20:33)
[2023-07-27] MEDS: carvediloL 3.125 MG TABLET PO (20:33)
[2023-07-27] MEDS: INSULIN GLARGINE (*BKC) 100 UNITS/ML 10 UNITS SUB-Q (20:33)
[2023-07-28] VITALS (13 sets, daily range): BP systolic 86–116; BP diastolic 47–61; PULSE 68–98; RESP 15–16; TEMP 36.9–37; O2SAT 94–96
[2023-07-28 08:31] LABS: Glucose Point of Care 110 mg/dl (65-105)
[2023-07-28] MEDS: ASPIRIN 81 MG ENTERIC TABLET PO (08:36)
[2023-07-28] MEDS: SACUBITRIL/VALSARTAN 24-26 MG TABLET 1 TAB PO (08:36)
[2023-07-28] MEDS: carvediloL 3.125 MG TABLET PO (08:36)
[2023-07-28] MEDS: EMPAGLIFLOZIN 10 MG TABLET PO (08:36)
[2023-07-28] MEDS: CHOLECALCIFEROL 1,000 UNITS TABLET 1000 UNITS PO (08:36)
[2023-07-28] MEDS: MAGNESIUM OXIDE 400 MG TABLET PO (08:36)
[2023-07-28 08:44] LABS: Anion Gap 5 mmol/L (4-12); Blood Urea Nitrogen 19 mg/dL (9-20); Calcium 8.4 mg/dL (8.4-10.2); Carbon Dioxide 26 mmol/L (22-30); Chloride 101 mmol/L (98-107); Estimated CRCL calculation 68 ml/min; Estimated Glomerular Filt Rate > 60; Glucose 111 mg/dL (65-110); Magnesium 2.3 mg/dL (1.6-2.3); Potassium 3.6 mmol/L (3.4-5.0); Sodium 132 mmol/L (137-145)
--- NOTE | 2023-07-28 11:47 | PM.IMPN ---
Progress Note: A&P Assessment and Plan (1) Dizziness: Code(s): R42 - Dizziness and giddiness Status: Acute Assessment and Plan: Suspect patient with vertigo type dizziness related to impacted cerumen. The symptom has resolved with removal of cerumen. He also has dizziness with standing worse in the morning. Suspect this is related to dehydration from his poor oral intakeand his continued use of his diuretics and other antihypertensive medications. CT brain showing no acute findings. Doubt CVA/TIA and more likely related to orthostatic BP. He had been treated with IV fluids. IV fluids were weaned off. His BP was low again this morning with standing but not symptomatic now and able to tolerate current medications. He is tolerating oral intake. Continue to monitor and encourage oral intake (2) Depression: Code(s): F32.A - Depression, unspecified Status: Acute Assessment and Plan: Patient with depression. Denies suicidal ideation since admission. He is not on antidepressants. Phelps risk score low this admission. His poor oral input felt related to dizziness and nausea (that seems to have resolved) but could also be related to his depression. Patient is cleared for Crisis to evaluate the patient. Continue suicide precautions until seen by Crisis. 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 Patient with insulin-dependent diabetes mellitus. Glucose was elevated on admission. The patient's blood glucose was reviewed on 07/27 Glucose better controlled. Continue AccuCheks covering with sliding scale. Hypoglycemia protocol available as needed. Continue to monitor Encourage patient to undergo foot exam given that he is diabetic and has hx of diabetic foot ulcers (4) Pleural effusion: Code(s): J90 - Pleural effusion, not elsewhere classified Status: Acute Assessment and Plan: Patient with bilateral pleural effusions. Unable to open old chest x-ray images but reports showed that these pleural effusions are chronic and not acute. Patient does have a cough but no fever or elevated white count. His procalcitonin level is low. No change in condition. Will follow off abx. (5) NICM (nonischemic cardiomyopathy): Code(s): I42.8 - Other cardiomyopathies Status: Acute Assessment and Plan: Patient with known NICMP. His last Echo 1 year ago showing EF 20-25% with diastolic dysfunction and RV hypokinesis and mild with severe pulmonary HTN. We have resumed Coreg and Entresto and tolerating these medications. Still holding diuretics. ICD recently interrogated. Plan DVT prophylaxis - lovenox Code status - full Subjective Date/time seen: 07/28/23 11:47 Interval history: 72yo male with DM and NICM here for dizziness. Patient eating some but does not like the food. His dizziness has resolved. He denies SI/HI Exam Narrative: AF 98.5 94 16 95% ra Supine 112/61 sitting 95/59 standing 86/47 111/59 after morning medications Gen - NARD Chest - decreased BS bibasilar CV - RRR. S1-S2. Tele showing paced rhythm Abd - soft, NT/ND Ext - no obvious pedal edema. Shoes and socks in place and he refuses foot exam again. Neuro - alert and approrpriate Psych - normal mood and affect. Patient is pleasant and cooperative. denies suicidal or homicidial ideation Skin - warm and dry. dried raised eschars noted bilateral shins and right forearm. Also with dry scaly matias scale. Objective Data Vital Signs Vital Signs: Vital Signs - 24 hr 07/27/23 12:00 07/27/23 14:07 07/27/23 12:00 Temperature Pulse Rate 101 H Respiratory Rate 22 H Blood Pressure 107/44 L Pulse Oximetry 100 96 96 Oxygen Delivery Room Air Room Air 07/27/23 16:00 04
[2023-07-28 12:07] LABS: Glucose Point of Care 181 mg/dl (65-105)
--- NOTE | 2023-07-28 14:54 | PM.DS ---
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 Please see H&^P for details. Hospital Course: Patient presents with dizziness. Suspect patient with vertigo type dizziness related to impacted cerumen.? The symptoms resolved with removal of cerumen.? He also has dizziness with standing worse in the morning.? Suspect this is related to dehydration from his poor oral intake and his continued use of his diuretics and other antihypertensive medications.? CT brain showing no acute findings. Doubt CVA/TIA and more likely related to orthostatic BP.? He was treated with IV fluids.?His orthostatic vital signs improved. His BP was low again this morning with standing but not symptomatic now and able to tolerate current medications. He is tolerating oral intake.? We encouraged oral intake. Patient with depression.? Denies suicidal ideation since admission.? He is not on antidepressants.? [place] risk score low this admission.? His poor oral input felt related to dizziness and nausea (that seems to have resolved) but poor appetite could also be related to his depression. Patient was cleared by Crisis and safety contract agreed to. A1c 8.5. Patient with insulin-dependent diabetes mellitus.?Glucose was elevated on admission.?Glucose became better controlled.?He was monitored with AccuCheks covering with sliding scale.? Hypoglycemia protocol was available as needed.?Patient was refusing to remove his shoes and socks. Encouraged patient to undergo foot exam given that he is diabetic and has hx of diabetic foot ulcers but he refused. Patient with bilateral pleural effusions.? Old reports showed that these pleural effusions are chronic and not acute.? Patient does have a cough but no fever or elevated white count.? His procalcitonin level is low. He was monitored off abx. Patient with known NICMP. His last Echo 1 year ago showing EF 20-25% with diastolic dysfunction and RV hypokinesis and mild with severe pulmonary HTN. We were able to resume his Coreg and Entresto. We held his diuretics. ICD recently interrogated.?He overall did well and was able to be discharged home on 07/28/23. Status at Discharge Cognitive/behavioral status at discharge: stable Time Spent with Patient Time attestation: Total time spent providing and/or coordinating discharge services: 38 minutes Time spent: Greater than 30 minutes Exam Narrative: AF 98.5 94 16 95% ra Supine 112/61 sitting 95/59 standing 86/47 111/59 after morning medications Gen - NARD Chest - decreased BS bibasilar CV - RRR. S1-S2. Tele showing paced rhythm Abd - soft, NT/ND Ext - no obvious pedal edema. Shoes and socks in place and he refuses foot exam again. Neuro - alert and approrpriate Psych - normal mood and affect. Patient is pleasant and cooperative. denies suicidal or homicidial ideation Skin - warm and dry. dried raised eschars noted bilateral shins and right forearm. Also with dry scaly matias scale. DS: Data Data Completed and Pending Labs on day of discharge: Labs from last 24 hours 07/28/23 07/28/23 07/28/23 12:05 08:21 08:17 Sodium 132 L Potassium 3.6 Chloride 101 Carbon Dioxide 26 Anion Gap 5 BUN 19 Crea
[2023-08-04 19:33] LABS: Zinc 45 mcg/dL (60-130)
--- NOTE | 2023-08-09 08:06 | PC.NURSE ---
Zinc is low at 45. Dr. Salgado aware.
== END 2023-07-28 16:12 | disposition home or self-care (01) | DRG 312 ==
LOC: ANHED 22:01 → ANHICU 22:54
PROVIDERS: Family Medicine; Admitting Provider Internal Medicine; Emergency Provider Emergency Medicine; Visit Provider Internal Medicine
DX: I95.1 Orthostatic hypotension (principal); I42.8 Other cardiomyopathies; J90 Pleural effusion, not elsewhere classified; H61.21 Impacted cerumen, right ear; E86.0 Dehydration; F32.A Depression, unspecified; T50.2X5A Adverse effect of carbonic-anhydrase inhibitors, benzothiadiazides and other diuretics, initial encounter; T46.5X5A Adverse effect of other antihypertensive drugs, initial encounter; I50.9 Heart failure, unspecified; E11.42 Type 2 diabetes mellitus with diabetic polyneuropathy; E55.9 Vitamin D deficiency, unspecified; I73.9 Peripheral vascular disease, unspecified; E78.5 Hyperlipidemia, unspecified; I11.0 Hypertensive heart disease with heart failure; Z20.822 Contact with and (suspected) exposure to COVID-19; Z79.4 Long term (current) use of insulin; Z89.421 Acquired absence of other right toe(s); Z79.82 Long term (current) use of aspirin; Z95.810 Presence of automatic (implantable) cardiac defibrillator; Z86.73 Personal history of transient ischemic attack (TIA), and cerebral infarction without residual deficits
CPT/HCPCS: 36415; 70450; 71045; 80048; 80053; 80069; 80307; 81003; 82306; 82607; 82746; 82948; 83036; 83605; 83735; 83880; 84145; 84439; 84443; 84480; 84484; 84630; 85025; 85610; 85730; 87637; 93005; 99284; 99285; A9270; G0378; J1815; J7030

== ENCOUNTER 2023-08-14 22:20 | Emergency (ER) | payer MEDICARE, MEDICAID, SELFPAY ==
[2023-08-14] VITALS (9 sets, daily range): BP systolic 73–116; BP diastolic 48–75; PULSE 80–95; RESP 18–25; TEMP 37.1; O2SAT 97–98
--- NOTE | ~2023-08-14 | XR_ITS ---
Portable chest x-ray Comparison: 07/26/2023 Clinical History: Dizziness Findings: Stable [id number] left pleural effusion and small right pleural effusion. Stable pr obable underlying COPD. Cardiomediastinal silhouette is stable, with pacemaker device. Bones and sof t tissues are unremarkable. Impression: Stable bilateral pleural effusions, left greater than right. Probable underlying COPD. Reviewed, dictated and finalized at location . Impression: Stable bilateral pleural effusions, left greater than right. Probable underlying COPD.
--- NOTE | ~2023-08-14 | CT_ITS ---
Non-contrast Head CT History: Dizziness COMPARISON: 07/26/2023 Technique: Axial non-contrast imaging of the brain was performed. Dose reduction technique was used on this scan by utilizing automated exposure control and iterative reconstruction technique. The dose -length product (DLP) was 681.00 mGy-cm. Findings: There is no evidence of intracranial hemorrhage, mass lesion, or acute infarct. Focal old right frontal lobe infarct is unchanged. The ventricles and subarachnoid spaces are normal in size. The calvarium appears normal. The visualized paranasal sinuses and mastoid air cells are clear. Impression: No acute abnormality seen. Stable focal chronic right frontal lobe infarct. Reviewed, dictated and finalized at location . Impression: No acute abnormality seen. Stable focal chronic right frontal lobe infarct.
--- NOTE | ~2023-08-14 | CT_ITS ---
EXAMINATION: CTA [facility] DATE: 08/14/2023 23:59 INDICATION: Necrotic left foot wound. TECHNIQUE: Computed tomographic angiography (CTA) of the left lower extremity was performed with 150 mL Omnipaque-350 intravenous contrast. Automated exposure control and iterative reconstruction techni que were employed. The dose-length product was 593.94 mGy-cm. Maximum intensity projection 3D-reconst ructions of the arteries were created by the technologist on a separate workstation. COMPARISON: CTA 05/20/2020 FINDINGS: There is gas in the medial left foot tracking proximally in the calf. There is widespread edema of th e subcutaneous fat. There are widespread arterial calcifications. There is no significant stenosis of left common iliac artery, internal iliac artery, external iliac artery, common femoral artery, profu nda femoral artery, superficial femoral artery, popliteal artery, tibioperoneal trunk, anterior tibia l artery, posterior tibial artery, or peroneal artery. The toes are partially excluded. There is ampu tation of fourth middle phalanx. There are chronic erosions of the heads of the fourth and fifth meta tarsals. There is gas in the head of the second metatarsal and in the first proximal phalanx, head of first metatarsal, and great toe sesamoids. The first proximal phalanx is not covered by soft tissue. There is chronic aggressive periosteal reaction of the tibia and fibula. IMPRESSION: 1. No significant arterial occlusive disease. 2. Osteomyelitis involving the first proximal phalanx and first and second metatarsals. Portions of t he toes are not included in the scan. 3. Soft tissue gas in the medial foot extending proximally in the calf. Correlate clinically for necr otizing fasciitis. Reviewed, dictated and finalized at location A. IMPRESSION: 1. No significant arterial occlusive disease. 2. Osteomyelitis involving the first proximal phalanx and first and second meta tarsals. Portions of the toes are not included in the scan. 3. Soft tissue gas in the medial foot extending proximally in the calf. Correla te clinically for necrotizing fasciitis.
--- NOTE | 2023-08-14 22:29 | ECG_ITS ---
SEE SCANNED COPY FOR CONFIRMED REPORT MTDD
[2023-08-14 22:40] LABS: Basophils Percent Auto 0.2 % (0.2-1.2); Eosinophils Percent Auto 0.1 % (0-4.4); Hematocrit 32.5 % (42.0-52.0); Hemoglobin 10.2 g/dL (14.0-18.0); Immature Granulocyte Absolute 0.14 K/mm3 (0.00-0.031); Immature Granulocyte Percent A 0.7 % (0-0.5); Lymphocytes Absolute Auto 0.48 K/mm3 (0.9-3.2); Lymphocytes Percent Auto 2.4 % (18.3-44.2); Mean Corpuscular HGB Conc 31.4 g/dl (32-36); Mean Corpuscular Hemoglobin 27.3 pg (26-34); Mean Corpuscular Volume 86.9 fl (80-100); Mean Platelet Volume 10.1 fl (7.4-10.4); Neutrophils Absolute Auto 18.2 K/mm3 (1.3-6.7); Neutrophils Percent Auto 91.6 % (45.5-73.1); Platelet Count Result 378 k/mm3 (150-375); Red Blood Count 3.74 M/mm3 (4.6-6.20); Red Cell Distribution Width 14.9 % (11.5-14.5); White Blood Count 19.9 K/mm3 (4.5-10.0)
[2023-08-14 22:52] LABS: Alanine Aminotransferase 15 U/L (6-50); Albumin Level 3.3 g/dL (3.5-5.1); Alkaline Phosphatase 158 U/L (38-126); Anion Gap 8 mmol/L (4-12); Aspartate Amino Transferase 21 U/L (17-59); Bilirubin,Total 0.8 mg/dL (0.2-1.3); Blood Urea Nitrogen 20 mg/dL (9-20); Calcium 8.6 mg/dL (8.4-10.2); Carbon Dioxide 29 mmol/L (22-30); Chloride 95 mmol/L (98-107); Estimated CRCL calculation 69 ml/min; Estimated Glomerular Filt Rate > 60; Glucose 336 mg/dL (65-110); Potassium 3.1 mmol/L (3.4-5.0); Sodium 132 mmol/L (137-145)
[2023-08-14 23:15] LABS: Appearance Urine Clear (Clear); Bilirubin Urine Negative (Negative); Blood Urine Negative (Negative); Color Urine Yellow (Yellow); Glucose Urine UA 3+ mg/dL (Negative); Ketones Urine Negative (Negative); Leukocyte Esterase Ur Negative LEU/UL (Negative); Nitrate Urine Negative (Negative); Protein Urine Negative (Negative); Specific Grav Ur 1.024 (1.001-1.035); pH Urine 5.5 (5.0-9.0)
[2023-08-14 23:19] LABS: Magnesium 2.2 mg/dL (1.6-2.3)
[2023-08-14 23:26] LABS: Add Urine Microscopic? NO
--- NOTE | 2023-08-14 23:37 | ED.DIZZY ---
HPI - Dizziness General Chief Complaint: Dizziness Stated Complaint: DIZZY & BLURRED VISION Time Seen by Provider: 08/14/23 22:32 Source: patient Mode of arrival: EMS Limitations: other (poor historian) History of Present Illness HPI Narrative: This is a 72 year old male that presents to the ER for dizziness. Ongoing over the last couple of weeks. Reports he was evaluated at our facility for this and told his blood pressure drops when he stands up. He has continued to experience dizziness. He had a fall due to this, that he reports he did not sustain any injuries from. He has a wound on his left foot that he has been managing at home. Reports drainage from the area. Denies fever, chest pain or shortness of breath. Related Data Home Medications Medication Instructions Recorded Confirmed aspirin 81 mg tablet,delayed 81 mg PO EVERY OTHER DAY 07/16/22 07/26/23 release insulin aspart U-100 100 unit/mL 1 sliding scale dose subcut 07/16/22 07/26/23 subcutaneous solution (Novolog USEASDIRECTD U-100 Insulin aspart) insulin detemir U-100 100 unit/mL 10 unit subcut HS 07/16/22 07/26/23 subcutaneous solution (Levemir U-100 Insulin) Allergies Allergy/AdvReac Type Severity Reaction Status Date / Time Penicillins Allergy Mild Unknown Verified 07/25/23 22:33 Review of Systems Review of Systems: CONSTITUTIONAL: Denies fever EYES: Denies visual changes, CARDIOVASCULAR: Denies chest pain, palpitations, or edema. RESPIRATORY: Denies dyspnea. GASTROINTESTINAL: Denies vomiting SKIN: Reports foot wound All systems reviewed & are unremarkable except as noted in HPI and below [facility] Past Medical History Medical History Apical mural thrombus Complete heart block Depression Diabetic peripheral neuropathy Dyslipidemia Essential (primary) hypertension Heart failure with reduced ejection fraction Insulin dependent type 2 diabetes mellitus Nonischemic cardiomyopathy Nonsustained ventricular tachycardia Paroxysmal atrial tachycardia Peripheral arterial disease Shoulder fracture, left Vitamin D deficiency Surgical History Surgical History History of complete ray amputation of third toe of right foot (05/2020) Due to osteomyelitis. History of permanent cardiac pacemaker placement (07/2019) Medtronic BiV-ICD placed at [facility]. Family History Family History Other No problems noted. Sibling Acute myocardial infarction Mother Lung cancer Social History Social History (Updated 07/27/23 @ 10:15 by Sky Salgado MD) Social History: Lives alone in an apartment. He does not drive. Works for [employer]. Rare alcohol use. Lifelong nonsmoker. No drug use. No pets Surrogate medical decision maker: Adrianne Pa, niece. Code status: Full code. Smoking status: Never smoker Second hand tobacco smoke exposure: No Alcohol intake: never Substance use: never Substance use type: does not use Do You Feel Safe in your Home?: Yes Lack of Transportation: No Lack of Food: Never True Current Housing: I Have Housing Concerned About Future Housing: No Difficulty Paying Gas/Electric Bills: No Difficulty Paying for Meds: No Currently Unemployed: No Education: Bachelor's Degree Difficulty w/ Childcare or Family Care: No Living arrangements: with family Additional living arrangements comments: Lives with [id number]. . His in only daughter were killed in a car accident. 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 Spiritual care concerns: Yes Agree to blood products: Yes Exam Narrative: GENERAL: Well-appearing, thin, and in no acute distress. HEAD: Normocephalic, atraumatic. EYES: PERRLA and EOMI. ENT: Nares clear, no rhinorrhea or epistaxis. Muc
[2023-08-14] MEDS: LACTATED RINGERS 1,000 ML 999 ML IV CONT (23:44)
[2023-08-14 23:48] LABS: Lactic Acid Reflex 2.6 mmol/L (0.7-2.0)
[2023-08-14 23:52] LABS: Erythrocyte Sedimentation Rate 111 mm/hr (0-20)
[2023-08-14] MEDS: CEFEPIME 2 GM/NS 50 ML 2 GM/50 ML BAG IVPB (23:58)
[2023-08-14 23:59] LABS: CRP 19.3 mg/dL (<1.0)
[2023-08-15] MEDS: metroNIDAZOLE 500 MG/ISO 100ML 500 MG/100 ML BAG 100 MG IVPB (00:05)
[2023-08-15] MEDS: POTASSIUM CHLORIDE 20 MEQ ER TABLET 40 MEQ PO (00:05)
[2023-08-15 00:45] VITALS: BP 110/56; PULSE 79; RESP 12; O2SAT 98
[2023-08-15] MEDS: SODIUM CHLORIDE 0.9% IV 1,000 ML 999 ML IV CONT (01:21)
[2023-08-15] MEDS: VANCOMYCIN 1,750 MG/NS 500 ML 1,750 MG/500 ML BAG 250 MG IVPB (01:21)
[2023-08-15 01:30] VITALS: BP 115/63; PULSE 83; RESP 17; O2SAT 98
[2023-08-15 02:16] VITALS: BP 101/48; PULSE 79; RESP 17; O2SAT 98
[2023-08-15 02:31] VITALS: BP 101/55; PULSE 82; RESP 18; O2SAT 99
[2023-08-15 02:36] LABS: Reflex Lactic Acid Yes or No Add Lactic
[2023-08-15 02:46] VITALS: BP 110/56; PULSE 77; RESP 16; O2SAT 98
[2023-08-15 03:18] LABS: Lactic Acid 1.2 mmol/L (0.7-2.0)
== END 2023-08-15 04:31 | disposition short-term general hospital (02) ==
PROVIDERS: Emergency Provider Physician Assistant
DX: M72.6 Necrotizing fasciitis (principal); E11.69 Type 2 diabetes mellitus with other specified complication; M86.9 Osteomyelitis, unspecified; I50.9 Heart failure, unspecified; I11.0 Hypertensive heart disease with heart failure; I42.8 Other cardiomyopathies; E11.42 Type 2 diabetes mellitus with diabetic polyneuropathy; E11.51 Type 2 diabetes mellitus with diabetic peripheral angiopathy without gangrene; I73.9 Peripheral vascular disease, unspecified; E78.5 Hyperlipidemia, unspecified; E55.9 Vitamin D deficiency, unspecified; Z95.810 Presence of automatic (implantable) cardiac defibrillator; Z89.421 Acquired absence of other right toe(s); Z79.4 Long term (current) use of insulin; Z79.82 Long term (current) use of aspirin; Z79.84 Long term (current) use of oral hypoglycemic drugs; R91.8 Other nonspecific abnormal finding of lung field; J90 Pleural effusion, not elsewhere classified
CPT/HCPCS: 36415; 70450; 71045; 73706; 80053; 81003; 83605; 83735; 85025; 85652; 86140; 87040; 87070; 87077; 87186; 87205; 93005; 96361; 96365; 96366; 96367; 99285; A9270; J0692; J1836; J3370; J7030; J7120; Q9967

== ENCOUNTER 2023-09-09 13:12 | Inpatient (IN) | payer MEDICARE, MEDICAID, SELFPAY ==
--- NOTE | 2023-09-09 13:33 | PM.DS ---
DS: Admitting Diagnosis Discharge Date 09/09/23 Admitting Diagnosis L BKA DS: Summary Hospital Course Hospital Course: Subjective Date/time seen: 09/08/23? 13:05 Interval history: HPI: Dimitry Pa is a 72 year old male with hx of systolic HF (20-30%), T2DM on insulin, hx of RBBB w/ L posterior fascicular block, 1st degree av block, hx of LV apical thrombus 2019, syncope 2/2 complete heart block s/p biventricular pacemaker (medtronic) placement 07/2019 presenting for L SUGEY necrotizing fascitis. Patient states he had been experiencing dizziness when getting up, experiencing orthostatic hypotension, went to the hospital for these symptoms and was found to have R foot wound. States his BG is usually <120 and well controlled at home, had a new soda recently saw his BG spike >300. Denies chest pain, sob, n/v/diarrhea, fevers, chills, headaches. Transferred to [facility] for nec fascitis, vascular surgery consulted, noted to have gas gangrene, taken urgently to OR for ankle disarticulation. Pt. had Left ankle disarticulation on 08/15/23 but still required a Left below knee amputation on 08/19/23. Wound Vac placed following surgery. Pt. tolerated procedure well. Interval history: 08/26 Patient seen and examined earlier this afternoon doing fine at this time resting comfortably vitals reviewed 08/27 Patient seen and examined doing fine at this time ?no new issues to report 08/28 Patient seen and examined earlier in the day doing ok resting comfortably vitals reviewed 08/29 Patient was seen and evaluated today Vital signs reviewed. Labs reviewed Participating well with therapy, no shortness of breath, chest pain, or palpitations Continue medical care 08/30 Patient was seen and evaluated today Vital signs reviewed. Labs reviewed Increased insulin sliding scale to moderate dose Participating well with therapy, no shortness of breath, chest pain, or palpitations Continue medical care 08/31 Patient was seen and evaluated today Vital signs reviewed. Labs reviewed Blood glucose is improving Complaints of L arm swelling. Ordered US Venous for LUE Will follow up result Participating well with therapy, no shortness of breath, chest pain, or palpitations Continue medical care 09/01 Patient was seen and evaluated today Vital signs reviewed. Labs reviewed Participating well with therapy, no shortness of breath, chest pain, or palpitations Today the patient states that he wants to , and he is planning not to eat and drink anymore Increased Cymbalta 20 mg to BID To send patient to [facility] for psych evaluation 09/02 Patient seen and examined earlier in the day doing ok currently no new issues at this time vitals reviewed 09/03 Patient seen and examined earlier in the day doing ok at this time no new issues to report vitals reviewed 09/04 Patient was seen and evaluated today Vital signs reviewed. Labs reviewed Participating well with therapy, no shortness of breath, chest pain, or palpitations Continue medical care 09/05 Patient was seen and evaluated today Vital signs reviewed. Labs reviewed Participating well with therapy, no shortness of breath, chest pain, or palpitations Continue medical care 09/06 Patient was seen and evaluated today Vital signs reviewed. Labs reviewed Participating well with therapy, no shortness of breath, chest pain, or palpitations Continue medical care 09/07 Patient was seen and evaluated today Vital signs reviewed. Labs reviewed Participating well with therapy, no shortness of breath, chest pain, or palpitations Continue medical care Review of Systems Review of Systems:?? All systems reviewed & are unremarkable except as noted in HPI and below Exam Const:?? General: comfortable and no acute distress HENMT:?? Head: normocephalic and atraumatic Eyes:?? Pupils: Equal, round and reactive pupils present? EOM: EOMs intact bilaterally Resp:?? Effort & Inspection: normal respiratory effort? Ausculta
--- NOTE | 2023-09-09 13:34 | PC.NURSE ---
Patient admitted to room 205, is alert and oriented, no.c/o pain, call light in reach.
[2023-09-09 13:41] VITALS: BMI 18.7
[2023-09-09 13:49] VITALS: BP 113/67; PULSE 81; RESP 18; TEMP 36.4; O2SAT 99
[2023-09-09 15:49] VITALS: BP 122/77; PULSE 83; RESP 18; TEMP 36.5; O2SAT 99
[2023-09-09 20:56] VITALS: PULSE 79
[2023-09-09] MEDS: carvediloL 3.125 MG TABLET PO (20:56)
[2023-09-09 23:45] VITALS: BP 110/69; PULSE 80; RESP 18; TEMP 36.6; O2SAT 96
--- NOTE | 2023-09-10 06:37 | PC.NURSE ---
Pt sitting up bedside on his computer, no needs voiced at this time. Call viveros at pt side, he reports no issues or pain at this time.
--- NOTE | 2023-09-10 07:47 | PM.IMHP ---
H&P: HPI History of Present Illness Date/Time: 09/10/23 07:47 Chief Complaint: Post Op Below the knee amputation Narrative: This is a 72 year old male that is here for swing bed after a below the knee amputation he will participate in therapy. Patient infroms me he is doing well and denies any pain. Patient has told me he is feeling well. Patient looks emaciated and has a sore on his right arm that I informed him he should have greeting card maker look at it when he is discharged. Patient states that he has hypertension, chf and DM insulin dependent and that is all he has. After reveiw of his past charts patient has low EF and is not in no distress. I did inquire where he is going on discharge and he has informed me that he is going to a friends hotel as he originally was going to his sister in laws but he does not get along with her that well. Case management will see him on Tuesday. Review of Systems Review of Systems: below the knee amputation All systems reviewed & are unremarkable except as noted in HPI and below PMFSH Past Medical History Medical History Apical mural thrombus Complete heart block Depression Diabetic peripheral neuropathy Dyslipidemia Essential (primary) hypertension Heart failure with reduced ejection fraction Insulin dependent type 2 diabetes mellitus Nonischemic cardiomyopathy Nonsustained ventricular tachycardia Paroxysmal atrial tachycardia Peripheral arterial disease Shoulder fracture, left Vitamin D deficiency Surgical History Surgical History History of complete ray amputation of third toe of right foot (05/2020) Due to osteomyelitis. History of permanent cardiac pacemaker placement (07/2019) Medtronic BiV-ICD placed at [facility]. Family History Family History Other No problems noted. Sibling Acute myocardial infarction Mother Lung cancer Social History Social History Social History: Lives alone in an apartment. He does not drive. Works for [employer]. Rare alcohol use. Lifelong nonsmoker. No drug use. No pets Surrogate medical decision maker: Adrianne Pa, niece. Code status: Full code. Smoking status: Never smoker Second hand tobacco smoke exposure: No Alcohol intake: never Substance use: never Substance use type: does not use Other substance usage details: once a year has an expensive bottle of alcohol Do You Feel Safe in your Home?: Yes Lack of Transportation: YES Lack of Food: Never True Current Housing: I Have Housing Concerned About Future Housing: No Difficulty Paying Gas/Electric Bills: No Difficulty Paying for Meds: No Currently Unemployed: No Education: Bachelor's Degree Difficulty w/ Childcare or Family Care: No Living arrangements: with family Additional living arrangements comments: Lives with [id number]. . His in only daughter were killed in a car accident. 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 Spiritual care concerns: No Agree to blood products: Yes Meds Home Medications and Allergies Home Medications Medication Instructions Recorded Confirmed Type empagliflozin 10 mg tablet 10 mg PO DAILY #30 tabs 05/26/21 09/09/23 Rx (Jardiance) carvedilol 3.125 mg tablet (Coreg) 3.125 mg PO Q12H 30 days #60 tabs 07/28/23 09/09/23 Rx cholecalciferol (vitamin D3) 25 1,000 unit PO DAILY #30 tabs 07/28/23 09/09/23 Rx mcg (1,000 unit) tablet (Vitamin D3) magnesium oxide 400 mg (241.3 mg 500 mg PO DAILY #30 tabs 07/28/23 09/09/23 Rx magnesium) tablet duloxetine 20 mg capsule,delayed 20 mg PO DAILY 08/25/23 09/09/23 History release ferrous sulfate 325 mg (65 mg 325 mg PO DAILY 08/25/23 09/09/23 History iron)
[2023-09-10 07:57] LABS: Glucose Point of Care 181 mg/dl (65-105)
[2023-09-10 08:00] VITALS: BP 122/80; PULSE 85; RESP 16; TEMP 35.9; O2SAT 99
[2023-09-10 08:27] VITALS: PULSE 85
[2023-09-10] MEDS: MAGNESIUM OXIDE 400 MG TABLET 500 MG PO (08:27)
[2023-09-10] MEDS: carvediloL 3.125 MG TABLET PO ×2 (08:27→20:12)
[2023-09-10] MEDS: DULoxetine HCL 20 MG CAPSULE.DR PO (08:30)
[2023-09-10] MEDS: FERROUS SULFATE 325 MG TABLET DR BY MOUTH (08:30)
[2023-09-10] MEDS: CHOLECALCIFEROL 1,000 UNITS TABLET 1000 UNITS PO (08:30)
[2023-09-10] MEDS: EMPAGLIFLOZIN 10 MG TABLET PO (08:30)
[2023-09-10 11:40] LABS: Glucose Point of Care 266 mg/dl (65-105)
[2023-09-10] MEDS: INSULIN HUMAN LISPRO (*BKC) 1,000 UNITS/10 ML VIAL SUB-Q (12:06)
[2023-09-10 16:00] VITALS: BP 131/73; PULSE 106; RESP 18; TEMP 35.9; O2SAT 98
[2023-09-10 17:04] LABS: Glucose Point of Care 135 mg/dl (65-105)
--- NOTE | 2023-09-10 17:56 | PC.NURSE ---
Dressing changed to surgical site on BTK amputation. Surgical site is well approximated with no s/s infection.
[2023-09-10 20:12] VITALS: PULSE 95
[2023-09-10 20:12] LABS: Glucose Point of Care 148 mg/dl (65-105)
[2023-09-11] VITALS: BP 116/72; PULSE 95; RESP 16; TEMP 36.6; O2SAT 96
[2023-09-11 05:27] LABS: Hematocrit 29.7 % (37.0-46.0); Hemoglobin 9.1 g/dL (12.4-15.3); Mean Corpuscular HGB Conc 30.6 g/dL (32-36); Mean Corpuscular Hemoglobin 29.8 pg (27.0-31.0); Mean Corpuscular Volume 97.4 fL (78.0-102.0); Mean Platelet Volume 9.6 fl (8.7-11.0); Platelet Count Result 257 K/mm3 (150-420); Red Blood Count 3.05 M/mm3 (4.70-6.10); Red Cell Distribution Width 17.4 % (11.6-14.4); White Blood Count 6.9 K/mm3 (4.8-10.8)
[2023-09-11 05:38] LABS: Anion Gap 7 mmol/L (4-12); Blood Urea Nitrogen 21 mg/dL (7-18); Calcium 8.4 mg/dL (8.5-10.1); Carbon Dioxide 30 mmol/L (21-32); Chloride 99 mmol/L (98-108); Estimated CRCL calculation 79 ml/min; Estimated Glomerular Filt Rate > 60; Glucose 128 mg/dL (70-99); Osmolality Calculated 287 mOsm/kg (285-295); Potassium 4.3 mmol/L (3.5-5.1); Sodium 136 mmol/L (136-145)
[2023-09-11 07:53] LABS: Glucose Point of Care 364 mg/dl (65-105)
[2023-09-11] MEDS: INSULIN HUMAN LISPRO (*BKC) 1,000 UNITS/10 ML VIAL SUB-Q (07:57)
[2023-09-11] MEDS: MAGNESIUM OXIDE 400 MG TABLET 500 MG PO (07:59)
[2023-09-11 08:00] VITALS: BP 127/81; PULSE 85; RESP 16; TEMP 36.3; O2SAT 99
[2023-09-11] MEDS: EMPAGLIFLOZIN 10 MG TABLET PO (08:00)
[2023-09-11] MEDS: carvediloL 3.125 MG TABLET PO ×2 (08:00→20:29)
[2023-09-11] MEDS: DULoxetine HCL 20 MG CAPSULE.DR PO (08:01)
[2023-09-11] MEDS: FERROUS SULFATE 325 MG TABLET DR BY MOUTH (08:02)
[2023-09-11] MEDS: CHOLECALCIFEROL 1,000 UNITS TABLET 1000 UNITS PO (08:02)
[2023-09-11] MEDS: DOCUSATE SODIUM 100 MG CAPSULE PO (08:42)
[2023-09-11 11:49] LABS: Glucose Point of Care 167 mg/dl (65-105)
[2023-09-11 16:00] VITALS: BP 117/75; PULSE 83; RESP 16; TEMP 36.2; O2SAT 97
[2023-09-11 16:43] LABS: Glucose Point of Care 162 mg/dl (65-105)
--- NOTE | 2023-09-11 18:49 | PC.NURSE ---
Dressing changed to L BKA. Area cleansed with normal saline, ABD pad and kerlex applied. There was a scant amount of bloody drainage on the ABD pad that I removed. No s/s infection noted. Patient tolerated dressing change well. Resting in bed with call light within reach.
[2023-09-11 20:29] VITALS: PULSE 82
[2023-09-11 20:34] LABS: Glucose Point of Care 186 mg/dl (65-105)
[2023-09-12] VITALS: BP 118/63; PULSE 82; RESP 16; TEMP 36.6; O2SAT 98
[2023-09-12 07:42] LABS: Glucose Point of Care 147 mg/dl (65-105)
[2023-09-12 08:00] VITALS: BP 128/81; PULSE 89; RESP 14; TEMP 36.1; O2SAT 97
[2023-09-12] MEDS: FERROUS SULFATE 325 MG TABLET DR BY MOUTH (09:04)
[2023-09-12] MEDS: EMPAGLIFLOZIN 10 MG TABLET PO (09:04)
[2023-09-12] MEDS: MAGNESIUM OXIDE 400 MG TABLET 500 MG PO (09:04)
[2023-09-12] MEDS: DULoxetine HCL 20 MG CAPSULE.DR PO (09:04)
[2023-09-12 09:05] VITALS: PULSE 89
[2023-09-12] MEDS: CHOLECALCIFEROL 1,000 UNITS TABLET 1000 UNITS PO (09:05)
[2023-09-12] MEDS: carvediloL 3.125 MG TABLET PO ×2 (09:05→21:02)
[2023-09-12 12:08] LABS: Glucose Point of Care > 450 mg/dl (65-105)
--- NOTE | 2023-09-12 12:14 | PC.NURSE ---
Nurse Tere notified this nurse of patient elevated blood sugar. This nurse notified Michelle CHOWDHURY, N.O. received for 6 additional units(to the sliding scale) one time.
[2023-09-12] MEDS: INSULIN HUMAN LISPRO (*BKC) 1,000 UNITS/10 ML VIAL 6 UNITS SUB-Q (12:15)
[2023-09-12] MEDS: INSULIN HUMAN LISPRO (*BKC) 1,000 UNITS/10 ML VIAL SUB-Q ×2 (12:15→17:30)
[2023-09-12 12:18] LABS: Glucose Point of Care > 450 mg/dl (65-105)
--- NOTE | 2023-09-12 12:25 | PC.NURSE ---
hospitalist notified of blood sugar of 458. Orders for 12 U humalog received.
--- NOTE | 2023-09-12 12:27 | PM.EVENT ---
Event Note Event Note Event Note: Blood glucose greater than 450 g/dL at meal time. Patient to receive a total of 12 units of lispro insulin with meal. Added Lantus 12 units at 0.2 units/kg for tonight and increased SSI to high dose. Patient is also on Jardiance. Last A1C in July 2023 was 8.5%.
[2023-09-12 13:41] LABS: Glucose Point of Care 292 mg/dl (65-105)
[2023-09-12 16:35] VITALS: BP 115/68; PULSE 94; RESP 16; TEMP 36.1; O2SAT 99
[2023-09-12 16:58] LABS: Glucose Point of Care 283 mg/dl (65-105)
[2023-09-12 21:02] VITALS: PULSE 95
[2023-09-12] MEDS: DOCUSATE SODIUM 100 MG CAPSULE PO (21:02)
[2023-09-12] MEDS: INSULIN GLARGINE (*BKC) 1,000 UNITS/10 ML VIAL 12 UNITS SUB-Q (21:04)
[2023-09-12 21:06] LABS: Glucose Point of Care 155 mg/dl (65-105)
[2023-09-13] VITALS (7 sets, daily range): BP systolic 115–127; BP diastolic 73–78; PULSE 86–95; RESP 16–18; TEMP 35.9–36.5; O2SAT 97–100
[2023-09-13 08:03] LABS: Glucose Point of Care 96 mg/dl (65-105)
[2023-09-13] MEDS: CHOLECALCIFEROL 1,000 UNITS TABLET 1000 UNITS PO (08:57)
[2023-09-13] MEDS: carvediloL 3.125 MG TABLET PO ×2 (08:57→20:15)
[2023-09-13] MEDS: DULoxetine HCL 20 MG CAPSULE.DR PO (08:57)
[2023-09-13] MEDS: MAGNESIUM OXIDE 400 MG TABLET 500 MG PO (08:58)
[2023-09-13] MEDS: EMPAGLIFLOZIN 10 MG TABLET PO (08:58)
[2023-09-13] MEDS: FERROUS SULFATE 325 MG TABLET DR BY MOUTH (08:58)
[2023-09-13 11:49] LABS: Glucose Point of Care 102 mg/dl (65-105)
[2023-09-13 16:55] LABS: Glucose Point of Care 205 mg/dl (65-105)
[2023-09-13] MEDS: INSULIN HUMAN LISPRO (*BKC) 1,000 UNITS/10 ML VIAL SUB-Q (17:24)
[2023-09-13] MEDS: INSULIN GLARGINE (*BKC) 1,000 UNITS/10 ML VIAL 12 UNITS SUB-Q (20:17)
[2023-09-13 20:56] LABS: Glucose Point of Care 179 mg/dl (65-105)
[2023-09-14 07:23] LABS: Glucose Point of Care 104 mg/dl (65-105)
[2023-09-14 08:00] VITALS: BP 122/72; PULSE 80; RESP 14; TEMP 36.6; O2SAT 97
[2023-09-14 08:59] VITALS: PULSE 70
[2023-09-14] MEDS: carvediloL 3.125 MG TABLET PO ×2 (08:59→21:05)
[2023-09-14] MEDS: MAGNESIUM OXIDE 400 MG TABLET 500 MG PO (08:59)
[2023-09-14] MEDS: CHOLECALCIFEROL 1,000 UNITS TABLET 1000 UNITS PO (09:01)
[2023-09-14] MEDS: DULoxetine HCL 20 MG CAPSULE.DR PO (09:01)
[2023-09-14] MEDS: FERROUS SULFATE 325 MG TABLET DR BY MOUTH (09:01)
[2023-09-14] MEDS: EMPAGLIFLOZIN 10 MG TABLET PO (09:01)
[2023-09-14 11:49] LABS: Glucose Point of Care 104 mg/dl (65-105)
[2023-09-14 15:33] VITALS: BP 125/75; PULSE 97; RESP 14; TEMP 36.1; O2SAT 97
[2023-09-14 16:49] LABS: Glucose Point of Care 153 mg/dl (65-105)
[2023-09-14 21:05] VITALS: PULSE 88
[2023-09-14] MEDS: INSULIN GLARGINE (*BKC) 1,000 UNITS/10 ML VIAL 12 UNITS SUB-Q (21:05)
[2023-09-14 21:09] LABS: Glucose Point of Care 201 mg/dl (65-105)
[2023-09-15] VITALS: BP 107/64; PULSE 74; RESP 16; TEMP 36.3; O2SAT 98
[2023-09-15 07:49] LABS: Glucose Point of Care 81 mg/dl (65-105)
[2023-09-15 08:00] VITALS: BP 126/80; PULSE 82; RESP 18; TEMP 35.8; O2SAT 97
[2023-09-15] MEDS: MAGNESIUM OXIDE 400 MG TABLET 500 MG PO (09:06)
[2023-09-15] MEDS: CHOLECALCIFEROL 1,000 UNITS TABLET 1000 UNITS PO (09:06)
[2023-09-15 09:07] VITALS: PULSE 82
[2023-09-15] MEDS: carvediloL 3.125 MG TABLET PO ×2 (09:07→20:38)
[2023-09-15] MEDS: FERROUS SULFATE 325 MG TABLET DR BY MOUTH (09:08)
[2023-09-15] MEDS: DULoxetine HCL 20 MG CAPSULE.DR PO (09:08)
[2023-09-15] MEDS: EMPAGLIFLOZIN 10 MG TABLET PO (09:08)
[2023-09-15 11:58] LABS: Glucose Point of Care 191 mg/dl (65-105)
[2023-09-15 16:00] VITALS: BP 108/72; PULSE 82; RESP 18; TEMP 36.6; O2SAT 97
[2023-09-15 16:41] LABS: Glucose Point of Care 136 mg/dl (65-105)
[2023-09-15 20:00] VITALS: PULSE 96; RESP 18; O2SAT 97
[2023-09-15 20:38] VITALS: PULSE 96
[2023-09-15] MEDS: INSULIN GLARGINE (*BKC) 1,000 UNITS/10 ML VIAL 12 UNITS SUB-Q (20:39)
[2023-09-15 20:43] LABS: Glucose Point of Care 235 mg/dl (65-105)
[2023-09-16] VITALS: BP 116/74; PULSE 74; RESP 18; TEMP 36.4; O2SAT 97
--- NOTE | 2023-09-16 06:14 | PC.NURSE ---
Pt awake, feeling sad this morning due to circumstances of his disability. Discussed feelings w/ pt. Charge nurse Bernie notified and will have care coordination speak w/ pt about his financial struggles and his future POC for d/c.
--- NOTE | 2023-09-16 07:43 | PM.IMPN ---
Progress Note: A&P Assessment and Plan (1) Below-knee amputation of left lower extremity: Qualifiers: Encounter type: initial encounter Qualified Code(s): S88.112A - Complete traumatic amputation at level between knee and ankle, left lower leg, initial encounter Code(s): S88.112A - Complete traumatic amputation at level between knee and ankle, left lower leg, initial encounter Status: Acute Assessment and Plan: Monitor for infection PT/OT evaluate and treat monitor for pain stool softeners monitor for Falls Swing patient . (2) Type 2 diabetes mellitus with hyperglycemia: Qualifiers: Diabetes mellitus [facility] insulin use: with moth exterminator use Qualified Code(s): E11.65 - Type 2 diabetes mellitus with hyperglycemia; Z79.4 - oil heaterman (current) use of insulin Code(s): E11.65 - Type 2 diabetes mellitus with hyperglycemia Status: Acute Assessment and Plan: Accuchecks AC HS Sliding scale Carb cons diet (3) Acute exacerbation of CHF (congestive heart failure): Qualifiers: Heart failure type: unspecified Qualified Code(s): I50.9 - Heart failure, unspecified Code(s): I50.9 - Heart failure, unspecified Status: Acute Assessment and Plan: monitor weekly weights monitor intake and output monitor for worsening s/s fo chf LOW EF Plan Patient has a sore on his right arm that may need to be evaluated by Dermatology on discharge. Planning for PT and OT with home health at discharge. Patient is doing well with increase in Lantus insulin in terms of his blood sugars. The patient will require wheelchair and slide board for transfers Subjective Date/time seen: 09/16/23 07:43 Interval history: 09/15: Patient was seen today up in a chair having breakfast. He states he is feeling well and has no complaints. He denies pain. He has been working with physical and occupational therapy and that has been going well. He states that yesterday the prosthesis rep was out to see him. Plan will be for him to discharge home with home health for PT and OT. Patient will need a wheelchair and slide board for mobility at discharge as he is status post left BKA as patient cannot maintain balance on the right lower extremity without hand hold. Patient is pending workup with new primary care provider. I have agreed to follow him for PT and OT home health orders until he can be established. Review of Systems Review of Systems: All systems reviewed & are unremarkable except as noted in HPI and below Exam Narrative: General: well appearing, appears stated age. HEENT: normocephalic, atraumatic. Mucous membranes moist. EOMI, PERRLA, bilateral sclera anicteric, no conjunctival injection. Neck supple without JVD, lymphadenopathy, or bruit. Respiratory: clear to auscultation bilaterally. No rales/rhonic/wheezes. Cardiovascular: Regular rate and rhythm, normal S1-S2 upon auscultation. No murmurs, rubs, or clicks. PMI is nondisplaced, capillary refill less than 3 second. Abdomen: Soft, round, no pulsatile masses, nondistended and nontender. No rebound, no guarding. No CVA tenderness, no hepatosplenomegaly. Bowel sounds present to all four quadrants. No high pitch or tinkling sounds, resonant to percussion. Extremities: No cyanosis, clubbing, or edema present. Pulses are palpable. Active ROM. Left BKA with compression sleeve in place. Neuro: Alert and orientated x 4. PERRLA. Cranial nerves 2-12 intact without focal deficit. Skin: Warm, dry, and intact, without rash, erythema, or lesion. Lines: Incisions: Psych: pleasant, cooperative, normal speech, normal affect, no hallucinations, no dysarthria Objective Data Vital Signs Vital Signs: Vital Signs - 24 hr 09/15/23 09:07 09/15/23 08:00 09/15/23 16:00 Temperature 96.5 F L 98 F Pulse Rate 82 82 82 Respiratory Rate 18 18 Blood Pressure 126/80 108/72 Pulse Oximetry 97 97 Oxygen Delivery
[2023-09-16 07:55] LABS: Glucose Point of Care 179 mg/dl (65-105)
[2023-09-16 08:00] VITALS: BP 118/72; PULSE 78; RESP 18; TEMP 36.6; O2SAT 99
[2023-09-16] MEDS: MAGNESIUM OXIDE 400 MG TABLET 500 MG PO (08:51)
[2023-09-16] MEDS: DULoxetine HCL 20 MG CAPSULE.DR PO (08:51)
[2023-09-16 08:52] VITALS: PULSE 82
[2023-09-16] MEDS: CHOLECALCIFEROL 1,000 UNITS TABLET 1000 UNITS PO (08:52)
[2023-09-16] MEDS: FERROUS SULFATE 325 MG TABLET DR BY MOUTH (08:52)
[2023-09-16] MEDS: carvediloL 3.125 MG TABLET PO ×2 (08:52→20:42)
[2023-09-16] MEDS: EMPAGLIFLOZIN 10 MG TABLET PO (08:52)
[2023-09-16 11:20] LABS: Glucose Point of Care 210 mg/dl (65-105)
[2023-09-16] MEDS: INSULIN HUMAN LISPRO (*BKC) 1,000 UNITS/10 ML VIAL SUB-Q (12:12)
[2023-09-16 16:00] VITALS: BP 112/74; PULSE 80; RESP 18; TEMP 36.6; O2SAT 98
[2023-09-16 17:02] LABS: Glucose Point of Care 103 mg/dl (65-105)
[2023-09-16 20:42] VITALS: PULSE 89
[2023-09-16] MEDS: INSULIN GLARGINE (*BKC) 1,000 UNITS/10 ML VIAL 12 UNITS SUB-Q (20:43)
[2023-09-16 20:44] LABS: Glucose Point of Care 207 mg/dl (65-105)
[2023-09-17] VITALS: BP 113/72; PULSE 89; RESP 16; TEMP 36.6; O2SAT 97
[2023-09-17 07:42] LABS: Glucose Point of Care 85 mg/dl (65-105)
[2023-09-17 08:00] VITALS: BP 122/78; PULSE 76; RESP 14; TEMP 35.9; O2SAT 99
[2023-09-17] MEDS: EMPAGLIFLOZIN 10 MG TABLET PO (09:15)
[2023-09-17 10:09] VITALS: PULSE 68
[2023-09-17] MEDS: carvediloL 3.125 MG TABLET PO ×2 (10:09→21:07)
[2023-09-17] MEDS: MAGNESIUM OXIDE 400 MG TABLET 500 MG PO (10:10)
[2023-09-17] MEDS: CHOLECALCIFEROL 1,000 UNITS TABLET 1000 UNITS PO (10:12)
[2023-09-17] MEDS: DULoxetine HCL 20 MG CAPSULE.DR PO (10:14)
[2023-09-17] MEDS: FERROUS SULFATE 325 MG TABLET DR BY MOUTH (10:15)
[2023-09-17 11:40] LABS: Glucose Point of Care > 450 mg/dl (65-105)
--- NOTE | 2023-09-17 12:09 | PC.NURSE ---
Pt blood sugar is above 500. RESIDENT ASSISTANT Kimberly notified and blood drawn . No orders for insulin given.
[2023-09-17 12:24] LABS: Anion Gap 5 mmol/L (4-12); Blood Urea Nitrogen 25 mg/dL (7-18); Calcium 8.8 mg/dL (8.5-10.1); Carbon Dioxide 32 mmol/L (21-32); Chloride 102 mmol/L (98-108); Estimated CRCL calculation 64 ml/min; Estimated Glomerular Filt Rate > 60; Glucose 167 mg/dL (70-99); Osmolality Calculated 296 mOsm/kg (285-295); Potassium 5.3 mmol/L (3.5-5.1); Sodium 139 mmol/L (136-145)
--- NOTE | 2023-09-17 13:55 | PC.NURSE ---
Lab draw at 1140 for BS was 163. No insulin given.
--- NOTE | 2023-09-17 14:53 | PC.NURSE ---
Pt given Jardience this am per orders. RN unable to scan medication.
[2023-09-17 16:30] VITALS: BP 121/73; PULSE 86; RESP 16; TEMP 36.4; O2SAT 100
[2023-09-17 16:54] LABS: Glucose Point of Care 370 mg/dl (65-105)
[2023-09-17 16:54] LABS: Glucose Point of Care > 450 mg/dl (65-105)
[2023-09-17 17:29] LABS: Glucose 146 mg/dL (70-99)
[2023-09-17 21:07] VITALS: PULSE 78
[2023-09-17 21:11] LABS: Glucose Point of Care 186 mg/dl (65-105)
[2023-09-17] MEDS: INSULIN GLARGINE (*BKC) 1,000 UNITS/10 ML VIAL 12 UNITS SUB-Q (21:11)
--- NOTE | 2023-09-17 22:58 | PC.NURSE ---
report to DONNIE pagan
[2023-09-18] VITALS: BP 114/73; PULSE 80; RESP 20; TEMP 36.2; O2SAT 98
--- NOTE | 2023-09-18 00:10 | PC.NURSE ---
Pt resting quietly in bed and doesnt voice any c/o discomfort
--- NOTE | 2023-09-18 03:13 | PC.NURSE ---
300 ml of clear, pancho urine emptied from urinal.
--- NOTE | 2023-09-18 05:05 | PC.NURSE ---
Pt asleep and no signs of discomfort noted.
--- NOTE | 2023-09-18 06:39 | PC.NURSE ---
Pt asleep and no signs of discomfort noted.
[2023-09-18 08:00] VITALS: BP 124/68; PULSE 78; RESP 14; TEMP 36.8; O2SAT 98
[2023-09-18 08:08] LABS: Glucose Point of Care 68 mg/dl (65-105)
--- NOTE | 2023-09-18 08:25 | PC.NURSE ---
Pt BS 68 this am . Apple juice given to pt. Breakfast tray arrived with in 10 minutes
[2023-09-18] MEDS: MAGNESIUM OXIDE 400 MG TABLET 500 MG PO (09:13)
[2023-09-18] MEDS: CHOLECALCIFEROL 1,000 UNITS TABLET 1000 UNITS PO (09:14)
[2023-09-18] MEDS: DULoxetine HCL 20 MG CAPSULE.DR PO (09:14)
[2023-09-18 09:15] VITALS: PULSE 78
[2023-09-18] MEDS: EMPAGLIFLOZIN 10 MG TABLET PO (09:15)
[2023-09-18] MEDS: carvediloL 3.125 MG TABLET PO ×2 (09:15→21:23)
[2023-09-18] MEDS: FERROUS SULFATE 325 MG TABLET DR BY MOUTH (09:16)
[2023-09-18 11:39] LABS: Glucose Point of Care 164 mg/dl (65-105)
[2023-09-18 16:30] VITALS: BP 125/80; PULSE 87; RESP 16; TEMP 36.1; O2SAT 99
[2023-09-18 17:03] LABS: Glucose Point of Care 122 mg/dl (65-105)
[2023-09-18 21:23] VITALS: PULSE 74
[2023-09-18] MEDS: INSULIN GLARGINE (*BKC) 1,000 UNITS/10 ML VIAL 12 UNITS SUB-Q (21:26)
[2023-09-18 21:34] LABS: Glucose Point of Care 225 mg/dl (65-105)
[2023-09-19] VITALS: BP 112/73; PULSE 80; RESP 20; TEMP 36.2; O2SAT 98
--- NOTE | 2023-09-19 00:10 | PC.NURSE ---
Pt resting quietly on his side and doesnt voice any c/o discomfort.
--- NOTE | 2023-09-19 02:18 | PC.NURSE ---
Pt asleep and no signs of discomfort noted.
--- NOTE | 2023-09-19 04:15 | PC.NURSE ---
Pt asleep and no signs of discomfort noted. 350 ml of clear, pancho urine emptied from urinal.
--- NOTE | 2023-09-19 06:20 | PC.NURSE ---
Pt sitting up at the bedside working on his computer. Pt doesnt voice any c/o discomfort at this time.
--- NOTE | 2023-09-19 07:31 | PM.DS ---
DS: Admitting Diagnosis Discharge Date 09/19/2023 Admitting Diagnosis Below the knee amputation on the left , Diabetes DS: Discharge Diagnosis Discharge Diagnosis (1) Below-knee amputation of left lower extremity: Qualifiers: Encounter type: initial encounter Qualified Code(s): S88.112A - Complete traumatic amputation at level between knee and ankle, left lower leg, initial encounter Code(s): S88.112A - Complete traumatic amputation at level between knee and ankle, left lower leg, initial encounter Status: Acute Assessment and Plan: Monitor for infection PT/OT evaluate and treat monitor for pain stool softeners monitor for Falls Swing patient . (2) Type 2 diabetes mellitus with hyperglycemia: Qualifiers: Diabetes mellitus halfway insulin use: with ocean transportation intermediary use Qualified Code(s): E11.65 - Type 2 diabetes mellitus with hyperglycemia; Z79.4 - care home (current) use of insulin Code(s): E11.65 - Type 2 diabetes mellitus with hyperglycemia Status: Acute Assessment and Plan: Accuchecks AC HS Sliding scale Carb cons diet (3) Acute exacerbation of CHF (congestive heart failure): Qualifiers: Heart failure type: unspecified Qualified Code(s): I50.9 - Heart failure, unspecified Code(s): I50.9 - Heart failure, unspecified Status: Acute Assessment and Plan: monitor weekly weights monitor intake and output monitor for worsening s/s fo chf LOW EF Plan Patient has a sore on his right arm that may need to be evaluated by Dermatology on discharge. DS: Summary Hospital Course Reason for hospitalization: Swing for therapy , Below the knee amputation Hospital Course: This is a 72 year old male that was admitted to the hospital for a below the knee amputation therapy. While here his blood sugars have remained stable and he has continued to improve. Patient continues to improve and he states that he uses his wheelchair. Patient will continue his home medication and will have home health and physical therapy. Mr. Pa vitals and labs have remained stable and will discharge home with outpatient follow up. Time Spent with Patient Time attestation: Total time spent providing and/or coordinating discharge services: Exam Narrative: General: well appearing, appears stated age. HEENT: normocephalic, atraumatic. Mucous membranes moist. EOMI, PERRLA, bilateral sclera anicteric, no conjunctival injection. Neck supple without JVD, lymphadenopathy, or bruit. Respiratory: clear to auscultation bilaterally. No rales/rhonic/wheezes. Cardiovascular: Regular rate and rhythm, normal S1-S2 upon auscultation. No murmurs, rubs, or clicks. PMI is nondisplaced, capillary refill less than 3 second. Abdomen: Soft, round, no pulsatile masses, nondistended and nontender. No rebound, no guarding. No CVA tenderness, no hepatosplenomegaly. Bowel sounds present to all four quadrants. No high pitch or tinkling sounds, resonant to percussion. Extremities: No cyanosis, clubbing, or edema present. Pulses are palpable. Active ROM. Left BKA with compression sleeve in place. Neuro: Alert and orientated x 4. PERRLA. Cranial nerves 2-12 intact without focal deficit. Skin: Warm, dry, and intact, without rash, erythema, or lesion. Lines: Incisions: Psych: pleasant, cooperative, normal speech, normal affect, no hallucinations, no dysarthria DS: Data Data Completed and Pending Labs on day of discharge: Labs from last 24 hours 09/18/23 09/18/23 09/18/23 21:31 16:59 11:33 POC Capillary Glucose 225 H 122 H 164 H 09/18/23 08:02 POC Capillary Glucose 68 Discharge Plan Discharge Attending physician on discharge: Sky Salgado Consulting providers: Quirino Gil Discharging Clinician: Jyoti Mendoza Anticipated Discharge Date/Time: 09/19/23 07:28 Patient Disposition: Home Health Service Activity: august shower a
[2023-09-19 07:45] LABS: Glucose Point of Care 93 mg/dl (65-105)
[2023-09-19 08:00] VITALS: BP 126/79; PULSE 84; RESP 14; TEMP 36; O2SAT 99
[2023-09-19] MEDS: MAGNESIUM OXIDE 400 MG TABLET 500 MG PO (08:39)
[2023-09-19 08:42] VITALS: PULSE 84
[2023-09-19] MEDS: EMPAGLIFLOZIN 10 MG TABLET PO (08:42)
[2023-09-19] MEDS: carvediloL 3.125 MG TABLET PO (08:42)
[2023-09-19] MEDS: FERROUS SULFATE 325 MG TABLET DR BY MOUTH (08:43)
[2023-09-19] MEDS: CHOLECALCIFEROL 1,000 UNITS TABLET 1000 UNITS PO (08:43)
[2023-09-19] MEDS: DULoxetine HCL 20 MG CAPSULE.DR PO (08:43)
[2023-09-19 11:59] LABS: Glucose Point of Care 192 mg/dl (65-105)
[2023-09-19 16:00] VITALS: BP 118/74; PULSE 86; RESP 14; TEMP 36.2; O2SAT 98
[2023-09-19 17:28] LABS: Glucose Point of Care 127 mg/dl (65-105)
--- NOTE | 2023-09-20 09:27 | PC.NURSE ---
Discharge call back attempted, no answer
--- NOTE | 2023-09-20 10:01 | PC.NURSE ---
Discharge call back complete, doing well, states wished that a slide board came with Wheel chair, advised to see if home health can assist with obtaining one or call us back and we will see if we can assist in locating one.
--- NOTE | 2023-09-20 10:14 | PCCCNOTE ---
Was notified by Melita Brunson RN when she called patient for follow up call that pt wished he would have gotten a slide board for transfers. [employer] from [place] has slide boards in stock for a cost of $42.60 and states insurances will not pay for it. If pt wants to call in with credit card and pay for it they will ship it to his home. [employer] also has slide transfer boards for $26.99. Called Morgan and informed him of the same and he states he has talked with his sister in-laws brother and he is going to make him one. Physical Therapy was called to verify the length he would need and they state the shorter board. Pt had not been using the slide transfer board recently with therapy, he had stood with wheeled walker and transferred to wheelchair.
== END 2023-09-19 18:30 | disposition home health service (06) | DRG 560 ==
PROVIDERS: Nurse Practitioner Family; Admitting Provider Internal Medicine; PCP Family Medicine; Visit Provider Internal Medicine
DX: Z47.81 Encounter for orthopedic aftercare following surgical amputation (principal); I42.8 Other cardiomyopathies; I50.22 Chronic systolic (congestive) heart failure; I11.0 Hypertensive heart disease with heart failure; E11.42 Type 2 diabetes mellitus with diabetic polyneuropathy; E78.5 Hyperlipidemia, unspecified; E11.51 Type 2 diabetes mellitus with diabetic peripheral angiopathy without gangrene; E55.9 Vitamin D deficiency, unspecified; E11.65 Type 2 diabetes mellitus with hyperglycemia; L98.9 Disorder of the skin and subcutaneous tissue, unspecified; F32.A Depression, unspecified; Z89.512 Acquired absence of left leg below knee; Z89.421 Acquired absence of other right toe(s); Z95.0 Presence of cardiac pacemaker; Z79.4 Long term (current) use of insulin
CPT/HCPCS: 36415; 80048; 82947; 82948; 85027; 97110; 97161; 97166; 97530; 97535; A9270; J1815

== ENCOUNTER 2023-10-08 17:44 | Inpatient (IN) | payer MEDICARE, MEDICAID, SELFPAY ==
--- NOTE | ~2023-10-08 | CT_ITS ---
EXAMINATION: CT pelvis wo con DATE: 10/08/2023 20:10 INDICATION: Left buttock pain. Fall. TECHNIQUE: Computed tomography (CT) of the pelvis was performed without intravenous contrast. Automat ed exposure control and iterative reconstruction technique were employed. The dose-length product was 127.63 mGy-cm. COMPARISON: CT abdomen pelvis 05/14/2021 FINDINGS: There are widespread arterial calcifications. Stool distends the rectum. The bladder is dis tended. There is widespread stranding of the intra-abdominal fat and body wall fat. Bone alignment is normal. There is a nondisplaced transverse fracture of the inferior sacrum at S4. Osteitis pubis is noted. There is mild lumbar spondylosis. There is moderate osteoarthritis of the hips. IMPRESSION: 1. Nondisplaced transverse fracture of the inferior sacrum at S4. 2. Moderate osteoarthritis of the hips. Reviewed, dictated and finalized at location E.
[2023-10-08 17:48] VITALS: BP 109/57; PULSE 98; RESP 20; TEMP 36.6; O2SAT 95
[2023-10-08 19:28] VITALS: BP 106/94; PULSE 95; RESP 15; O2SAT 96
--- NOTE | 2023-10-08 19:29 | PC.NURSE ---
Patient states that he has had multiple incidents of sliding out of his wheelchair.
--- NOTE | 2023-10-08 19:41 | ECG_ITS ---
Test Date: 2023-10-08 19:50:51 Measurements Intervals [place] Rate: 87 P: 48 IA: 200 QRS: 254 QRSD: 194 T: 76 QT: 461 QTc: 556 Interpretive Statements ELECTRONIC VENTRICULAR PACEMAKER SINUS RHYTHM WITH ATRIAL SENSING AND VENTRICULAR PACING ABNORMAL RHYTHM ECG No previous ECG available for comparison Electronically Signed On 10-09-2023 08:39:43 CDT by Abilio Clifton M.D.
--- NOTE | 2023-10-08 19:42 | ED.FALL ---
HPI - Fall General Chief Complaint: Fall Stated Complaint: was dizzy and fell, hit L buttocks Time Seen by Provider: 10/08/23 19:22 Source: patient Mode of arrival: ambulatory Limitations: no limitations History of Present Illness HPI Narrative: This is a 72-year-old male with PMH of insulin-dependent diabetes, HFrEF, peripheral neuropathy s/p L BKA, CAD, s/p ventricular pacemaker who presents to the ED for chief complaint of a fall that occurred around 1 hour prior to arrival. patient reports that he is known to become orthostatic whenever he sits or stands up. He reports that he became orthostatic when sitting up from the toilet today and this caused him to fall backwards. Reports that he hit his buttock on his wheelchair and on the floor of the bathroom. Reports pain in this region but denies any further sites of pain. Denies LOC. Denies numbness, weakness, fevers, chills, chest pain, shortness of breath, cough, abdominal pain, nausea, vomiting, diarrhea, GI bleeding. Related Data Home Medications Medication Instructions Recorded Confirmed duloxetine 20 mg capsule,delayed 20 mg PO DAILY 08/25/23 10/09/23 release aspirin 81 mg capsule 81 mg PO DAILY 10/09/23 10/09/23 furosemide 40 mg tablet 40 mg PO BID 10/09/23 10/09/23 sacubitril 24 mg-valsartan 26 mg 24 - 26 tablet PO DAILY 10/09/23 10/09/23 tablet (Entresto) Allergies Allergy/AdvReac Type Severity Reaction Status Date / Time Penicillins Allergy Mild Unknown Verified 10/09/23 00:14 Review of Systems Review of Systems: All systems as dictated in [facility] Past Medical History Medical History Apical mural thrombus Complete heart block Depression Diabetic peripheral neuropathy Dyslipidemia Essential (primary) hypertension Heart failure with reduced ejection fraction Insulin dependent type 2 diabetes mellitus Nonischemic cardiomyopathy Nonsustained ventricular tachycardia Paroxysmal atrial tachycardia Peripheral arterial disease Shoulder fracture, left Vitamin D deficiency Surgical History Surgical History History of complete ray amputation of third toe of right foot (05/2020) Due to osteomyelitis. History of permanent cardiac pacemaker placement (07/2019) [employer] BiV-ICD placed at [facility]. Family History Family History Other No problems noted. Sibling Acute myocardial infarction Mother Lung cancer Social History Social History Social History: Lives alone in an apartment. He does not drive. Works for [employer]. Rare alcohol use. Lifelong nonsmoker. No drug use. No pets Surrogate medical decision maker: Adrianne Pa, niece. Code status: Full code. Smoking status: Never smoker Second hand tobacco smoke exposure: No Alcohol intake: never Substance use: never Substance use type: does not use Other substance usage details: once a year has an expensive bottle of alcohol Do You Feel Safe in your Home?: Yes Lack of Transportation: No Lack of Food: Never True Current Housing: I Have Housing Concerned About Future Housing: No Difficulty Paying Gas/Electric Bills: No Difficulty Paying for Meds: No Currently Unemployed: No Education: Bachelor's Degree Difficulty w/ Childcare or Family Care: No Living arrangements: with family Additional living arrangements comments: Lives with [id number]. . His in only daughter were killed in a car accident. 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 Spiritual care concerns: No Agree to blood products: Yes Exam Narrative: GENERAL: Chronically ill-appearing. HEAD: Normocephalic, atraumatic. EYES: PERRLA and EOMI. ENT: Nares clear, no rhino
[2023-10-08 19:48] LABS: Glucose Point of Care 207 mg/dl (65-105)
[2023-10-08 20:58] VITALS: BP 99/70; PULSE 88; RESP 20; O2SAT 100
[2023-10-08 21:01] LABS: Basophils Percent Auto 0.5 % (0.2-1.2); Eosinophils Absolute Auto 0.1 K/mm3 (0-0.3); Eosinophils Percent Auto 1.6 % (0-4.4); Hematocrit 27.6 % (42.0-52.0); Hemoglobin 8.8 g/dL (14.0-18.0); Immature Granulocyte Absolute 0.02 K/mm3 (0.00-0.031); Immature Granulocyte Percent A 0.3 % (0-0.5); Lymphocytes Percent Auto 9.2 % (18.3-44.2); Mean Corpuscular HGB Conc 31.9 g/dl (32-36); Mean Corpuscular Hemoglobin 29.5 pg (26-34); Mean Corpuscular Volume 92.6 fl (80-100); Mean Platelet Volume 10.1 fl (7.4-10.4); Monocytes Absolute Auto 0.5 K/mm3 (0.1-0.6); Monocytes Percent Auto 6.9 % (2.6-8.5); Neutrophils Absolute Auto 6.2 K/mm3 (1.3-6.7); Neutrophils Percent Auto 81.5 % (45.5-73.1); Platelet Count Result 226 k/mm3 (150-375); Red Blood Count 2.98 M/mm3 (4.6-6.20); Red Cell Distribution Width 14.1 % (11.5-14.5); White Blood Count 7.6 K/mm3 (4.5-10.0)
[2023-10-08 21:11] LABS: INR 1.1; Prothrombin Time 14.4 Seconds (11.1-14.7)
[2023-10-08 21:12] LABS: Partial Thromboplastin Time 28.9 Seconds (22.3-36.8)
[2023-10-08 21:13] LABS: Alanine Aminotransferase 16 U/L (6-50); Albumin Level 3.1 g/dL (3.5-5.1); Alkaline Phosphatase 153 U/L (38-126); Anion Gap 4 mmol/L (4-12); Aspartate Amino Transferase 23 U/L (17-59); Bilirubin,Total 0.4 mg/dL (0.2-1.3); Blood Urea Nitrogen 24 mg/dL (9-20); Calcium 8.4 mg/dL (8.4-10.2); Carbon Dioxide 29 mmol/L (22-30); Chloride 106 mmol/L (98-107); Estimated CRCL calculation 70 ml/min; Estimated Glomerular Filt Rate > 60; Glucose 186 mg/dL (65-110); Potassium 3.4 mmol/L (3.4-5.0); Sodium 139 mmol/L (137-145)
[2023-10-08] MEDS: SODIUM CHLORIDE 0.9% IV 1,000 ML 999 ML IV CONT (21:29)
[2023-10-08 21:39] VITALS: BP 103/57; PULSE 90; RESP 17; O2SAT 100
[2023-10-08 22:32] VITALS: BP 103/54; PULSE 79; RESP 17; O2SAT 100
[2023-10-08] MEDS: SODIUM CHLORIDE 0.9% IV 1,000 ML 75 ML IV CONT (23:04)
[2023-10-08 23:28] VITALS: BP 101/65; PULSE 82; RESP 14; O2SAT 96
--- NOTE | 2023-10-08 23:45 | ADMGEN ---
This patient, Dimitry Pa, was admitted to Medical Room 252-01. Patient/family oriented to hospital policies and general routines including ID bracelet, bed and alarms, visiting hours, pain management, procedures, bathroom and other care routines, personal items, smoking policy, room service/diet, and visiting hours. Information on how to activate the Rapid Response Team has been discussed. Patient/Family are encouraged to report perceived risks to care and to ask questions if they do not understand what they are told or what they should do.
[2023-10-09] VITALS (9 sets, daily range): BP systolic 100–154; BP diastolic 49–78; PULSE 70–98; RESP 16–18; TEMP 36.1–36.9; O2SAT 94–98
[2023-10-09] MEDS: carvediloL 3.125 MG TABLET PO ×3 (02:47→20:26)
--- NOTE | 2023-10-09 07:34 | PM.IMHP ---
H&P: HPI History of Present Illness Date/Time: 10/09/23 07:34 Chief Complaint: fall Narrative: This is a 72 year old male with a significant past medical history of complete heart block with pacemaker placement (Medtronic BiV-ICD), depression, type 2 DM, Heart failure with reduced EF, hypertension, dyslipidemia, s/p left BKA who presents to the hospital for further evaluation after sustaining a ground level fall. Patient states he was getting up from his bedside commode when his niece rang the doorbell. The doorbell startled him and he fell backwards on to the arm of the couch hitting his coccyx. Patient states that he did have a skin tear to his buttock due to this injury. Patient has left BKA that was done recently at [facility] by Dr. Seth. His incision looks well approximated and healing well. Patient has been doing pivot transfers at home. I did notice that patient has an unstageable wound to his right heel and he has wounds in between his toes on the right as well. There is eschar present on the heel wound with mepilex in place. He will likely need debriding agent such as santyl. Wound care nurse to evaluate. He also has a skin tear to right elbow from the fall that has a mepilex over it. Patient denies any fever, chills, nausea, vomiting, diarrhea, abdominal pain, chest pain, or shortness of breath. He rates his pain about 2-3 on scale of 1-10. Work up in the hospital includes a pelvis CT which shown a nondisplaced transverse fracture of the inferior sacrum at S4, moderate osteoarthritis of the hips. Initial labs shown a normal white blood cell count of 7.6, hemoglobin 8.8, INR 1.1, alk-phos 153. Last echo reviewed from 07/16/22 shown severe global LV systolic dysfunction with an EF of 20-25%, diastolic dysfunction present, severe pulmonary hypertension with an estimated pulmonary arterial systolic pressure of 66mmHg. Patient was given NS bolus in the ER and started on pain medications. Review of Systems Review of Systems: All systems reviewed & are unremarkable except as noted in HPI and below Constitutional: Constitutional: Reports as per HPI and Reports no additional constitutional complaints Eyes: Eyes: Reports as per HPI and Reports no additional eye complaints ENT: Reports system reviewed and no additional complaints, except as documented and Reports as per HPI Cardiovascular: Cardiovascular: Reports as per HPI and Reports no additional cardiovascular complaints Respiratory: Respiratory: Reports as per HPI and Reports no additional respiratory complaints Gastrointestinal: Gastrointestinal: Reports as per HPI and Reports no additional gastrointestinal complaints Genitourinary: Genitourinary: Reports no additional male genitourinary complaints and Reports as per HPI Musculoskeletal: Musculoskeletal: Reports no additional musculoskeletal complaints and Reports as per HPI Integumentary/Breasts: Skin/Breast: Reports system reviewed and no additional complaints, except as docu and Reports as per HPI Neurologic: Reports system reviewed and no additional complaints, except as documented and Reports as per HPI Psychiatric: Psychiatric: Reports no additional psychiatric complaints and Reports as per HPI [facility] Past Medical History Medical History Apical mural thrombus Complete heart block Depression Diabetic peripheral neuropathy Dyslipidemia Essential (primary) hypertension Heart failure with reduced ejection fraction Insulin dependent type 2 diabetes mellitus Nonischemic cardiomyopathy Nonsustained ventricular tachycardia Orthostatic hypotension Paroxysmal atrial tachycardia Peripheral arterial disease Shoulder fracture, left Vitamin D deficiency Surgical History Surgical History History of complete ray amputation of third toe of right foot (05/2020) Due to osteomyelitis. History of left below knee amputation History of p
[2023-10-09 08:04] LABS: Glucose Point of Care 118 mg/dl (65-105)
[2023-10-09] MEDS: CHOLECALCIFEROL 1,000 UNITS TABLET 1000 UNITS PO (09:35)
[2023-10-09] MEDS: ASPIRIN 81 MG ENTERIC TABLET PO (09:35)
[2023-10-09] MEDS: MAGNESIUM OXIDE 400 MG TABLET PO (09:35)
[2023-10-09] MEDS: EMPAGLIFLOZIN 10 MG TABLET PO (09:36)
[2023-10-09] MEDS: DULoxetine HCL 20 MG CAPSULE.DR PO (09:36)
[2023-10-09] MEDS: FUROSEMIDE 40 MG TABLET PO ×2 (10:53→17:06)
[2023-10-09 11:42] LABS: Glucose Point of Care 191 mg/dl (65-105)
[2023-10-09] MEDS: COLLAGENASE OINT 30 GM TUBE 1 APPLIC TOPICAL ×2 (14:00→20:26)
[2023-10-09 16:40] LABS: Glucose Point of Care 134 mg/dl (65-105)
[2023-10-09] MEDS: DOCUSATE SODIUM 100 MG CAPSULE PO (17:04)
[2023-10-09 20:16] LABS: Glucose Point of Care 194 mg/dl (65-105)
[2023-10-10] VITALS (8 sets, daily range): BP systolic 96–113; BP diastolic 55–70; PULSE 70–92; RESP 16–18; TEMP 36.7–36.8; O2SAT 95–98
[2023-10-10 04:57] LABS: Basophils Percent Auto 0.7 % (0.2-1.2); Eosinophils Absolute Auto 0.2 K/mm3 (0-0.3); Eosinophils Percent Auto 3.7 % (0-4.4); Hematocrit 29.6 % (42.0-52.0); Hemoglobin 8.9 g/dL (14.0-18.0); Immature Granulocyte Absolute 0.02 K/mm3 (0.00-0.031); Immature Granulocyte Percent A 0.3 % (0-0.5); Lymphocytes Absolute Auto 0.82 K/mm3 (0.9-3.2); Lymphocytes Percent Auto 13.9 % (18.3-44.2); Mean Corpuscular HGB Conc 30.1 g/dl (32-36); Mean Corpuscular Hemoglobin 28.4 pg (26-34); Mean Corpuscular Volume 94.6 fl (80-100); Mean Platelet Volume 9.8 fl (7.4-10.4); Monocytes Absolute Auto 0.4 K/mm3 (0.1-0.6); Monocytes Percent Auto 6.8 % (2.6-8.5); Neutrophils Absolute Auto 4.4 K/mm3 (1.3-6.7); Neutrophils Percent Auto 74.6 % (45.5-73.1); Platelet Count Result 246 k/mm3 (150-375); Red Blood Count 3.13 M/mm3 (4.6-6.20); Red Cell Distribution Width 13.8 % (11.5-14.5); White Blood Count 5.9 K/mm3 (4.5-10.0)
[2023-10-10 05:09] LABS: Alanine Aminotransferase 15 U/L (6-50); Albumin Level 3.1 g/dL (3.5-5.1); Alkaline Phosphatase 134 U/L (38-126); Anion Gap 4 mmol/L (4-12); Aspartate Amino Transferase 23 U/L (17-59); Bilirubin,Total 0.4 mg/dL (0.2-1.3); Blood Urea Nitrogen 18 mg/dL (9-20); Calcium 8.3 mg/dL (8.4-10.2); Carbon Dioxide 28 mmol/L (22-30); Chloride 106 mmol/L (98-107); Estimated CRCL calculation 76 ml/min; Estimated Glomerular Filt Rate > 60; Glucose 129 mg/dL (65-110); Magnesium 1.9 mg/dL (1.6-2.3); Potassium 3.6 mmol/L (3.4-5.0); Sodium 138 mmol/L (137-145)
--- NOTE | 2023-10-10 08:05 | P.PNIM_ITS ---
Progress Note: A&P Assessment and Plan (1) Closed sacral fracture: Code(s): S32.10XA - Unspecified fracture of sacrum, initial encounter for closed fracture Status: Acute Assessment and Plan: 10/09/23: * s/p ground level fall * CT of the pelvis shown nondisplaced transverse fracture of the inferior sacrum at S4, moderate osteoarthritis of the hips * PT/OT to eval * Case coordination consulted for possible rehab placement * open wound to right buttock, skin tear to left elbow 10/10/23: * PT and OT to evaluate today * Case coordination following * Continue pain control (2) Decubitus ulcer: Code(s): L89.90 - Pressure ulcer of unspecified site, unspecified stage Status: Acute Assessment and Plan: 10/09/23: * eschar present on right heel * Santyl BID with mepilex * Wound nurse consulted * Elevate heel off of bed. 10/10/23: * Wound nurse consulted * Continue with santyl BID with mepilex (3) History of left below knee amputation: Code(s): Z89.512 - Acquired absence of left leg below knee Status: Chronic Assessment and Plan: 10/09/23: * Incision well approximated, wound heeling * PT and OT ordered * Case coordination following for rehab needs 10/10/23: * PT and OT to eval today (4) Heart failure with reduced ejection fraction: Code(s): I50.20 - Unspecified systolic (congestive) heart failure Status: Chronic Assessment and Plan: 10/09/23: * Last echo reviewed from 07/16/22 shown severe global systolic dysfunction with an EF of 20-25%, diastolic dysfunction was present, severe pulmonary hypertens ion * Continue Entresto, Aspirin, Coreg, Lasix, and Jardiance 10/10/23: * No change to current treatment plan (5) Orthostatic hypotension: Code(s): I95.1 - Orthostatic hypotension Status: Chronic Assessment and Plan: 10/09/23: * Patient has history of cardiomyopathy and orthostatic hypotension * Blood pressure ranging 99/70-109/57 initially * orthostatic blood pressures ordered for q shift 10/10/23: * Blood pressures showing no orthostatic hypotension * Continue to monitor (6) Biventricular ICD (implantable cardioverter-defibrillator) in place: Code(s): Z95.810 - Presence of automatic (implantable) cardiac defibrillator Status: Chronic Assessment and Plan: 10/09/23: * [employer] BiV-ICD placed at [facility] in 2020 due to 3rd degree heart block. 10/10/23: * No change (7) Diabetes mellitus: Qualifiers: Diabetes mellitus complication status: without complication Diabetes mellitus jail insulin use: without jail use Diabetes mellitus type: type 2 Qualified Code(s): E11.9 - Type 2 diabetes mellitus without complications Code(s): E11.9 - Type 2 diabetes mellitus without complications Status: Chronic Assessment and Plan: 10/09/23: * Blood sugars ranging 118-186 * Hgb A1C 8.5 on 07/27/23 * Accu checks AC/HS * Low dose SSI ordered * Continue Jardiance * hypoglycemic protocol in place * Diabetic diet 10/10/23: * No change to current treatment plan (8) Dyslipidemia: Code(s): E78.5 - Hyperlipidemia, unspecified Status: Chronic Assessment and Plan: 10/09/23: * Continue aspirin * Not on a statin currently 10/10/23: * No change to current treatment plan Time Spent With Patient Time with patient: Greater than 35 minutes Subjective Date/time seen: 10/10/23 08:05 Interval history: 10/08
--- NOTE | 2023-10-10 08:05 | PM.IMPN ---
Progress Note: A&P Assessment and Plan (1) Closed sacral fracture: Code(s): S32.10XA - Unspecified fracture of sacrum, initial encounter for closed fracture Status: Acute Assessment and Plan: 10/09/23: s/p ground level fall CT of the pelvis shown nondisplaced transverse fracture of the inferior sacrum at S4, moderate osteoarthritis of the hips PT/OT to eval Case coordination consulted for possible rehab placement open wound to right buttock, skin tear to left elbow 10/10/23: PT and OT to evaluate today Case coordination following Continue pain control (2) Decubitus ulcer: Code(s): L89.90 - Pressure ulcer of unspecified site, unspecified stage Status: Acute Assessment and Plan: 10/09/23: eschar present on right heel Santyl BID with mepilex Wound nurse consulted Elevate heel off of bed. 10/10/23: Wound nurse consulted Continue with santyl BID with mepilex (3) History of left below knee amputation: Code(s): Z89.512 - Acquired absence of left leg below knee Status: Chronic Assessment and Plan: 10/09/23: Incision well approximated, wound heeling PT and OT ordered Case coordination following for rehab needs 10/10/23: PT and OT to eval today (4) Heart failure with reduced ejection fraction: Code(s): I50.20 - Unspecified systolic (congestive) heart failure Status: Chronic Assessment and Plan: 10/09/23: Last echo reviewed from 07/16/22 shown severe global systolic dysfunction with an EF of 20-25%, diastolic dysfunction was present, severe pulmonary hypertension Continue Entresto, Aspirin, Coreg, Lasix, and Jardiance 10/10/23: No change to current treatment plan (5) Orthostatic hypotension: Code(s): I95.1 - Orthostatic hypotension Status: Chronic Assessment and Plan: 10/09/23: Patient has history of cardiomyopathy and orthostatic hypotension Blood pressure ranging 99/70-109/57 initially orthostatic blood pressures ordered for q shift 10/10/23: Blood pressures showing no orthostatic hypotension Continue to monitor (6) Biventricular ICD (implantable cardioverter-defibrillator) in place: Code(s): Z95.810 - Presence of automatic (implantable) cardiac defibrillator Status: Chronic Assessment and Plan: 10/09/23: [employer] BiV-ICD placed at [facility] in 2020 due to 3rd degree heart block. 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 insulin use: without mcc use Diabetes mellitus type: type 2 Qualified Code(s): E11.9 - Type 2 diabetes mellitus without complications Code(s): E11.9 - Type 2 diabetes mellitus without complications Status: Chronic Assessment and Plan: 10/09/23: Blood sugars ranging 118-186 Hgb A1C 8.5 on 07/27/23 Accu checks AC/HS Low dose SSI ordered Continue Jardiance hypoglycemic protocol in place Diabetic diet 10/10/23: No change to current treatment plan (8) Dyslipidemia: Code(s): E78.5 - Hyperlipidemia, unspecified Status: Chronic Assessment and Plan: 10/09/23: Continue aspirin Not on a statin currently 10/10/23: No change to current treatment plan Time Spent With Patient Time with patient: Greater than 35 minutes Subjective Date/time seen: 10/10/23 08:05 Interval history: 10/09/23: This is a 72 year old male with a significant past medical history of complete heart block with pacemaker placement (Medtronic BiV-ICD), depression, type 2 DM, Heart failure with reduced EF, hypertension, dyslipidemia, s/p left BKA who presents to the hospital for further evaluation after sustaining a ground level fall. Patient states he was getting up from his bedside commode when his niece rang the doorbell. The doorbell startled him and he fell backwards on to the arm of the couch hitting his coccyx. Patient state
[2023-10-10] MEDS: DOCUSATE SODIUM 100 MG CAPSULE PO (09:05)
[2023-10-10] MEDS: MAGNESIUM OXIDE 400 MG TABLET PO (09:05)
[2023-10-10] MEDS: CHOLECALCIFEROL 1,000 UNITS TABLET 1000 UNITS PO (09:05)
[2023-10-10] MEDS: FUROSEMIDE 40 MG TABLET PO ×2 (09:05→17:53)
[2023-10-10] MEDS: DULoxetine HCL 20 MG CAPSULE.DR PO (09:05)
[2023-10-10] MEDS: ASPIRIN 81 MG ENTERIC TABLET PO (09:05)
[2023-10-10] MEDS: carvediloL 3.125 MG TABLET PO ×2 (09:06→20:40)
[2023-10-10] MEDS: EMPAGLIFLOZIN 10 MG TABLET PO (09:06)
[2023-10-10] MEDS: COLLAGENASE OINT 30 GM TUBE 1 APPLIC TOPICAL (09:06)
[2023-10-10 09:23] LABS: Glucose Point of Care 149 mg/dl (65-105)
[2023-10-10 11:44] LABS: Glucose Point of Care 216 mg/dl (65-105)
[2023-10-10] MEDS: INSULIN ASPART (*BKC) 100 UNITS/ML SUB-Q (12:34)
[2023-10-10 16:57] LABS: Glucose Point of Care 130 mg/dl (65-105)
[2023-10-10 20:38] LABS: Glucose Point of Care 153 mg/dl (65-105)
[2023-10-11] VITALS (19 sets, daily range): BP systolic 83–141; BP diastolic 45–82; PULSE 71–98; RESP 16–22; TEMP 36.2–36.8; O2SAT 82–100
[2023-10-11 04:54] LABS: Basophils Percent Auto 0.5 % (0.2-1.2); Eosinophils Absolute Auto 0.3 K/mm3 (0-0.3); Eosinophils Percent Auto 3.9 % (0-4.4); Hematocrit 31.6 % (42.0-52.0); Hemoglobin 9.6 g/dL (14.0-18.0); Immature Granulocyte Absolute 0.03 K/mm3 (0.00-0.031); Immature Granulocyte Percent A 0.5 % (0-0.5); Lymphocytes Absolute Auto 0.75 K/mm3 (0.9-3.2); Lymphocytes Percent Auto 11.3 % (18.3-44.2); Mean Corpuscular HGB Conc 30.4 g/dl (32-36); Mean Corpuscular Hemoglobin 28.6 pg (26-34); Mean Platelet Volume 10.2 fl (7.4-10.4); Monocytes Absolute Auto 0.4 K/mm3 (0.1-0.6); Monocytes Percent Auto 6.6 % (2.6-8.5); Neutrophils Absolute Auto 5.1 K/mm3 (1.3-6.7); Neutrophils Percent Auto 77.2 % (45.5-73.1); Platelet Count Result 283 k/mm3 (150-375); Red Blood Count 3.36 M/mm3 (4.6-6.20); Red Cell Distribution Width 13.5 % (11.5-14.5); White Blood Count 6.6 K/mm3 (4.5-10.0)
[2023-10-11 05:15] LABS: Alanine Aminotransferase 15 U/L (6-50); Albumin Level 3.2 g/dL (3.5-5.1); Alkaline Phosphatase 147 U/L (38-126); Anion Gap 4 mmol/L (4-12); Aspartate Amino Transferase 27 U/L (17-59); Bilirubin,Total 0.4 mg/dL (0.2-1.3); Blood Urea Nitrogen 24 mg/dL (9-20); Calcium 8.3 mg/dL (8.4-10.2); Carbon Dioxide 33 mmol/L (22-30); Chloride 102 mmol/L (98-107); Estimated CRCL calculation 76 ml/min; Estimated Glomerular Filt Rate > 60; Glucose 110 mg/dL (65-110); Potassium 3.3 mmol/L (3.4-5.0); Sodium 139 mmol/L (137-145)
[2023-10-11 08:43] LABS: Glucose Point of Care 105 mg/dl (65-105)
[2023-10-11] MEDS: DULoxetine HCL 20 MG CAPSULE.DR PO (08:52)
[2023-10-11] MEDS: CHOLECALCIFEROL 1,000 UNITS TABLET 1000 UNITS PO (08:52)
[2023-10-11] MEDS: EMPAGLIFLOZIN 10 MG TABLET PO (08:52)
[2023-10-11] MEDS: MAGNESIUM OXIDE 400 MG TABLET PO (08:52)
[2023-10-11] MEDS: DOCUSATE SODIUM 100 MG CAPSULE PO ×2 (08:52→17:37)
[2023-10-11] MEDS: FUROSEMIDE 40 MG TABLET PO (08:53)
[2023-10-11] MEDS: ASPIRIN 81 MG ENTERIC TABLET PO (08:53)
[2023-10-11] MEDS: carvediloL 3.125 MG TABLET PO ×2 (08:54→21:06)
[2023-10-11 12:13] LABS: Glucose Point of Care 291 mg/dl (65-105)
[2023-10-11] MEDS: INSULIN ASPART (*BKC) 100 UNITS/ML SUB-Q (12:29)
--- NOTE | 2023-10-11 15:29 | P.PNIM_ITS ---
Progress Note: A&P Assessment and Plan (1) Closed sacral fracture: Code(s): S32.10XA - Unspecified fracture of sacrum, initial encounter for closed fracture Status: Acute Assessment and Plan: 10/09/23: * s/p ground level fall * CT of the pelvis shown nondisplaced transverse fracture of the inferior sacrum at S4, moderate osteoarthritis of the hips * PT/OT to eval * Case coordination consulted for possible rehab placement * open wound to right buttock, skin tear to left elbow 10/10/23: * PT and OT to evaluate today * Case coordination following * Continue pain control 10/11/23: * No change to current treatment plan (2) Decubitus ulcer: Code(s): L89.90 - Pressure ulcer of unspecified site, unspecified stage Status: Acute Assessment and Plan: 10/09/23: * eschar present on right heel * Santyl BID with mepilex * Wound nurse consulted * Elevate heel off of bed. 10/10/23: * Wound nurse consulted * Continue with santyl BID with mepilex 10/11/23: * Wound care nurse seen patient yesterday and put in recommendations * Continue dressing changes as indicated. (3) History of left below knee amputation: Code(s): Z89.512 - Acquired absence of left leg below knee Status: Chronic Assessment and Plan: 10/09/23: * Incision well approximated, wound heeling * PT and OT ordered * Case coordination following for rehab needs 10/10/23: * PT and OT to eval today 10/11/23: * No change to treatment plan (4) Heart failure with reduced ejection fraction: Code(s): I50.20 - Unspecified systolic (congestive) heart failure Status: Chronic Assessment and Plan: 10/09/23: * Last echo reviewed from 07/16/22 shown severe global systolic dysfunction with an EF of 20-25%, diastolic dysfunction was present, severe pulmonary hypertension * Continue Entresto, Aspirin, Coreg, Lasix, and Jardiance 10/10/23: * No change to current treatment plan (5) Orthostatic hypotension: Code(s): I95.1 - Orthostatic hypotension Status: Chronic Assessment and Plan: 10/09/23: * Patient has history of cardiomyopathy and orthostatic hypotension * Blood pressure ranging 99/70-109/57 initially * orthostatic blood pressures ordered for q shift 10/10/23: * Blood pressures showing no orthostatic hypotension * Continue to monitor (6) Biventricular ICD (implantable cardioverter-defibrillator) in place: Code(s): Z95.810 - Presence of automatic (implantable) cardiac defibrillator Status: Chronic Assessment and Plan: 10/09/23: * [employer] BiV-ICD placed at [facility] in 2020 due to 3rd degree heart block. 10/10/23: * No change (7) Diabetes mellitus: Qualifiers: Diabetes mellitus complication status: without complication Diabetes mellitus shelter insulin use: without shelter use Diabetes mellitus type: type 2 Qualified Code(s): E11.9 - Type 2 diabetes mellitus without complications Code(s): E11.9 - Type 2 diabetes mellitus without complications Status: Chronic Assessment and Plan: 10/09/23: * Blood sugars ranging 118-186 * Hgb A1C 8.5 on 07/27/23 * Accu checks AC/HS * Low dose SSI ordered * Continue Jardiance * hypoglycemic protocol in place * Diabetic diet 10/10/23: * No change to current treatment plan (8) Dyslipidemia: Code(s): E78.5 - Hyperlipidemia, unspecified Status: Chronic Assessment and Plan: 10/09/23: * Continue aspirin * Not on a s
--- NOTE | 2023-10-11 15:29 | PM.IMPN ---
Progress Note: A&P Assessment and Plan (1) Closed sacral fracture: Code(s): S32.10XA - Unspecified fracture of sacrum, initial encounter for closed fracture Status: Acute Assessment and Plan: 10/09/23: s/p ground level fall CT of the pelvis shown nondisplaced transverse fracture of the inferior sacrum at S4, moderate osteoarthritis of the hips PT/OT to eval Case coordination consulted for possible rehab placement open wound to right buttock, skin tear to left elbow 10/10/23: PT and OT to evaluate today Case coordination following Continue pain control 10/11/23: No change to current treatment plan (2) Decubitus ulcer: Code(s): L89.90 - Pressure ulcer of unspecified site, unspecified stage Status: Acute Assessment and Plan: 10/09/23: eschar present on right heel Santyl BID with mepilex Wound nurse consulted Elevate heel off of bed. 10/10/23: Wound nurse consulted Continue with santyl BID with mepilex 10/11/23: Wound care nurse seen patient yesterday and put in recommendations Continue dressing changes as indicated. (3) History of left below knee amputation: Code(s): Z89.512 - Acquired absence of left leg below knee Status: Chronic Assessment and Plan: 10/09/23: Incision well approximated, wound heeling PT and OT ordered Case coordination following for rehab needs 10/10/23: PT and OT to eval today 10/11/23: No change to treatment plan (4) Heart failure with reduced ejection fraction: Code(s): I50.20 - Unspecified systolic (congestive) heart failure Status: Chronic Assessment and Plan: 10/09/23: Last echo reviewed from 07/16/22 shown severe global systolic dysfunction with an EF of 20-25%, diastolic dysfunction was present, severe pulmonary hypertension Continue Entresto, Aspirin, Coreg, Lasix, and Jardiance 10/10/23: No change to current treatment plan (5) Orthostatic hypotension: Code(s): I95.1 - Orthostatic hypotension Status: Chronic Assessment and Plan: 10/09/23: Patient has history of cardiomyopathy and orthostatic hypotension Blood pressure ranging 99/70-109/57 initially orthostatic blood pressures ordered for q shift 10/10/23: Blood pressures showing no orthostatic hypotension Continue to monitor (6) Biventricular ICD (implantable cardioverter-defibrillator) in place: Code(s): Z95.810 - Presence of automatic (implantable) cardiac defibrillator Status: Chronic Assessment and Plan: 10/09/23: [employer] BiV-ICD placed at [facility] in 2020 due to 3rd degree heart block. 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 use Diabetes mellitus type: type 2 Qualified Code(s): E11.9 - Type 2 diabetes mellitus without complications Code(s): E11.9 - Type 2 diabetes mellitus without complications Status: Chronic Assessment and Plan: 10/09/23: Blood sugars ranging 118-186 Hgb A1C 8.5 on 07/27/23 Accu checks AC/HS Low dose SSI ordered Continue Jardiance hypoglycemic protocol in place Diabetic diet 10/10/23: No change to current treatment plan (8) Dyslipidemia: Code(s): E78.5 - Hyperlipidemia, unspecified Status: Chronic Assessment and Plan: 10/09/23: Continue aspirin Not on a statin currently 10/10/23: No change to current treatment plan Time Spent With Patient Time with patient: 15 - 25 minutes Subjective Date/time seen: 10/11/23 15:29 Interval history: 10/09/23: This is a 72 year old male with a significant past medical history of complete heart block with pacemaker placement ([employer]tr[employer] BiV-ICD), depression, type 2 DM, Heart failure with reduced EF, hypertension, dyslipidemia, s/p left BKA who presents to the hospital for further evaluation after sustaining a ground level
[2023-10-11] MEDS: HYDROcodone/acetaminophen (*CRX) 5-325 MG TABLET 1 TAB PO (15:40)
[2023-10-11 16:49] LABS: Glucose Point of Care 149 mg/dl (65-105)
[2023-10-11 20:37] LABS: Glucose Point of Care 120 mg/dl (65-105)
[2023-10-12] VITALS (7 sets, daily range): BP systolic 103–116; BP diastolic 52–61; PULSE 68–96; RESP 18–21; TEMP 36.6–36.8; O2SAT 91–98
[2023-10-12 08:08] LABS: Glucose Point of Care 103 mg/dl (65-105)
[2023-10-12] MEDS: CHOLECALCIFEROL 1,000 UNITS TABLET 1000 UNITS PO (09:25)
[2023-10-12] MEDS: FUROSEMIDE 40 MG TABLET PO (09:25)
[2023-10-12] MEDS: MAGNESIUM OXIDE 400 MG TABLET PO (09:25)
[2023-10-12] MEDS: DULoxetine HCL 20 MG CAPSULE.DR PO (09:25)
[2023-10-12] MEDS: ASPIRIN 81 MG ENTERIC TABLET PO (09:25)
[2023-10-12] MEDS: carvediloL 3.125 MG TABLET PO (09:25)
[2023-10-12] MEDS: EMPAGLIFLOZIN 10 MG TABLET PO (09:25)
--- NOTE | 2023-10-12 11:19 | PM.DS ---
DS: Admitting Diagnosis Discharge Date 10/12/23 Admitting Diagnosis Closed sacral fracture Decubitus ulcer History of left below knee amputation Heart failure with reduced ejection fraction Orthostatic hypotension Biventricular ICD Diabetes mellitus Dyslipidemia DS: Discharge Diagnosis Discharge Diagnosis (1) Closed sacral fracture: Code(s): S32.10XA - Unspecified fracture of sacrum, initial encounter for closed fracture Status: Acute (2) Decubitus ulcer: Code(s): L89.90 - Pressure ulcer of unspecified site, unspecified stage Status: Acute (3) History of left below knee amputation: Code(s): Z89.512 - Acquired absence of left leg below knee Status: Chronic (4) Heart failure with reduced ejection fraction: Code(s): I50.20 - Unspecified systolic (congestive) heart failure Status: Chronic (5) Orthostatic hypotension: Code(s): I95.1 - Orthostatic hypotension Status: Chronic (6) Biventricular ICD (implantable cardioverter-defibrillator) in place: Code(s): Z95.810 - Presence of automatic (implantable) cardiac defibrillator Status: Chronic (7) Diabetes mellitus: Qualifiers: Diabetes mellitus type: type 2 Diabetes mellitus halfway insulin use: without keno terminal operator use Diabetes mellitus complication status: without complication Qualified Code(s): E11.9 - Type 2 diabetes mellitus without complications Code(s): E11.9 - Type 2 diabetes mellitus without complications Status: Chronic (8) Dyslipidemia: Code(s): E78.5 - Hyperlipidemia, unspecified Status: Chronic DS: Summary Hospital Course Reason for hospitalization: Closed sacral fracture Decubitus ulcer History of left below knee amputation Heart failure with reduced ejection fraction Orthostatic hypotension Biventricular ICD Diabetes mellitus Dyslipidemia Hospital Course: 10/09/23: This is a 72 year old male with a significant past medical history of complete heart block with pacemaker placement ([employer] BiV-ICD), depression, type 2 DM, Heart failure with reduced EF, hypertension, dyslipidemia, s/p left BKA who presents to the hospital for further evaluation after sustaining a ground level fall. Patient states he was getting up from his bedside commode when his niece rang the doorbell. The doorbell startled him and he fell backwards on to the arm of the couch hitting his coccyx. Patient states that he did have a skin tear to his buttock due to this injury. Patient has left BKA that was done recently at [facility] by Dr. Seth. His incision looks well approximated and healing well. Patient has been doing pivot transfers at home. I did notice that patient has an unstageable wound to his right heel and he has wounds in between his toes on the right as well. There is eschar present on the heel wound with mepilex in place. He will likely need debriding agent such as santyl. Wound care nurse to evaluate. He also has a skin tear to right elbow from the fall that has a mepilex over it. Patient denies any fever, chills, nausea, vomiting, diarrhea, abdominal pain, chest pain, or shortness of breath. He rates his pain about 2-3 on scale of 1-10. Work up in the hospital includes a pelvis CT which shown a nondisplaced transverse fracture of the inferior sacrum at S4, moderate osteoarthritis of the hips. Initial labs shown a normal white blood cell count of 7.6, hemoglobin 8.8, INR 1.1, alk-phos 153. Last echo reviewed from 07/16/22 shown severe global LV systolic dysfunction with an EF of 20-25%, diastolic dysfunction present, severe pulmonary hypertension with an estimated pulmonary arterial systolic pressure of 66mmHg. Patient was given NS bolus in the ER and started on pain medications. 10/10/23: Patient denies any new complaints today. Labs today reveal Hgb 8.9, otherwise unremarkable. Plan for PT and OT to evaluate today. Case coordination following for outpatient rehab needs. 10/11/23: No new co
[2023-10-12 11:43] LABS: Glucose Point of Care 140 mg/dl (65-105)
[2023-10-12 11:45] LABS: SARS-CoV-2 RNA PCR Negative (Negative)
== END 2023-10-12 14:25 | DRG 552 ==
LOC: ANHED 22:59 → ANH2MED 23:16
PROVIDERS: Admitting Provider Internal Medicine; Emergency Provider Physician Assistant; PCP Family Medicine; Visit Provider Nurse Practitioner Acute Care
DX: S32.17XA Type 4 fracture of sacrum, initial encounter for closed fracture (principal); I50.42 Chronic combined systolic (congestive) and diastolic (congestive) heart failure; I44.2 Atrioventricular block, complete; L89.610 Pressure ulcer of right heel, unstageable; I95.1 Orthostatic hypotension; E78.5 Hyperlipidemia, unspecified; I11.0 Hypertensive heart disease with heart failure; E11.42 Type 2 diabetes mellitus with diabetic polyneuropathy; M16.0 Bilateral primary osteoarthritis of hip; S50.311A Abrasion of right elbow, initial encounter; W19.XXXA Unspecified fall, initial encounter; Z95.810 Presence of automatic (implantable) cardiac defibrillator; Z89.512 Acquired absence of left leg below knee; Z11.52 Encounter for screening for COVID-19
CPT/HCPCS: 36415; 72192; 80053; 82948; 83735; 85025; 85610; 85730; 87635; 93005; 96360; 96361; 97110; 97162; 97166; 97530; 99285; A9270; G0378; J1815; J7030

== ENCOUNTER 2024-05-16 15:47 | Inpatient (IN) | payer MEDICARE, MEDICAID, SELFPAY ==
[2024-05-16] VITALS (7 sets, daily range): BP systolic 100–111; BP diastolic 64–80; PULSE 79–100; RESP 14–28; TEMP 36.2–36.5; O2SAT 94–100
--- NOTE | ~2024-05-16 | US_ITS ---
EXAMINATION: US thoracentesis DATE: 05/21/2024 15:13 INDICATION: Large right pleural effusion TECHNIQUE: The procedure and its risks and benefits were discussed with the patient. Potential risks discussed included bleeding, infection, and pneumothorax. The patient understood the risks and agreed to proceed. The skin was prepped and draped in sterile fashion. 1% lidocaine was used for local anes thesia. Under ultrasound guidance, a 5 Fr catheter with trochar was advanced into the right pleural e ffusion. Fluid was aspirated. The catheter was removed, and a dressing was applied. There were no imm ediate complications. FINDINGS: Ultrasound images demonstrate a complex large right pleural effusion with numerous linear echogenic s eptations extending between the hypoechoic fluid pockets. Subsequent images demonstrate the catheter within the fluid. IMPRESSION: 1. Successful ultrasound-guided thoracentesis yielding 700 mL of dark maroon-colored fluid. Reviewed, dictated and finalized at location A. RICT SERVICE MANAGER IMPRESSION: 1. Successful ultrasound-guided thoracentesis yielding 700 mL of dark maroon-c olored fluid.
--- NOTE | ~2024-05-16 | XR_ITS ---
CHEST RADIOGRAPH CLINICAL HISTORY: large pleural effusions . COMPARISON: 05/16/2024 TECHNIQUE: Single portable view of the chest. FINDINGS The left mid lung is partially obscured due to pacemaker/AICD generator. Wires project over the right atrium, coronary sinus and right ventricle. Decreased right-sided pleural effusion when compared with previous examination. Right-sided pleural thickening persists. Large left-sided pleural effusion remains. IMPRESSION: Decreased right-sided pleural effusion without pneumothorax following right-sided thoracentesis. Reviewed, dictated and finalized at location A. NESS SYSTEM CONSULTANT IMPRESSION: Decreased right-sided pleural effusion without pneumothorax following right-ernst ed thoracentesis.
--- NOTE | ~2024-05-16 | CT_ITS ---
EXAMINATION: CTA chest PE protocol DATE: 05/16/2024 19:58 INTERACTIVE ACCOUNT MANAGER INDICATION: Hypoxia TECHNIQUE: Computed tomographic angiography (CTA) of the chest was performed with 100 mL Omnipaque-35 0 intravenous contrast. The dose-length product was 380.16 mGy-cm. Maximum intensity projection 3D-re constructions of the aorta and other arteries were constructed by the technologist on a separate work station. COMPARISON: Reference is made to a plain radiograph of the chest performed the same day, approximatel y 3 hours earlier. FINDINGS: No filling defect is identified within the main or proximal pulmonary arteries. The thoracic aorta is unremarkable, without aneurysmal dilatation or dissection. The heart is enlarged, without pericardial effusion. Large bilateral pleural effusions are identified, right greater than left with adjacent compressive a telectasis. Within the upper abdomen: Reflux of intravenous contrast is identified within the hepatic veins. Densely calcified atherosclerotic disease is noted. Fecal stasis is also present. Diffuse bony demineralization within the thoracic spine without acute compression fracture. IMPRESSION: No pulmonary embolus. No aortic dissection or aneurysmal dilatation. Large bilateral pleural effusions, right greater than left with adjacent compressive atelectasis. Reviewed, dictated and finalized at location A. RACTIVE ACCOUNT MANAGER IMPRESSION: No pulmonary embolus. No aortic dissection or aneurysmal dilatation. Large bilateral pleural effusions, right greater than left with adjacent compre ssive atelectasis.
--- NOTE | ~2024-05-16 | US_ITS ---
EXAMINATION: US venous doppler [facility] DATE: 05/17/2024 10:51 INDICATION: Breast breath, hypoxia and elevated d-dimer. TECHNIQUE: Grayscale ultrasound images without and with compression and Doppler ultrasound images of the bilateral lower extremity veins were obtained. COMPARISON: None. FINDINGS: The visualized portions of right common femoral vein, profunda (deep) femoral vein, femoral vein, pop liteal vein, posterior tibial veins and peroneal veins are patent. The visualized portions of left common femoral vein, profunda femoral vein, femoral vein and poplitea l vein are patent. Patient is reportedly status post left [id number] amputation. IMPRESSION: 1. No deep venous thrombosis in either lower limb. Reviewed, dictated and finalized at location B. TRIMMER
--- NOTE | ~2024-05-16 | XR_ITS ---
CHEST RADIOGRAPH CLINICAL HISTORY: PNA . COMPARISON: 08/14/2023 TECHNIQUE: Single portable view of the chest. FINDINGS The left mid lung is partially obscured due to pacemaker/AICD generator. Wires project over the right atrium, coronary sinus and right ventricle. The remainder of the cardiomediastinal silhouette is otherwise unremarkable. Large bilateral pleural effusions are noted, left greater than right. IMPRESSION: Large bilateral pleural effusions, as detailed above. Reviewed, dictated and finalized at location A. LINE INSTALLER
--- NOTE | 2024-05-16 15:52 | ECG_ITS ---
Test Date: 2024-05-16 18:31:45 Measurements Intervals [place] Rate: 91 P: 50 ND: 185 QRS: 259 QRSD: 186 T: 80 QT: 463 QTc: 570 Interpretive Statements ELECTRONIC VENTRICULAR PACEMAKER ABNORMAL RHYTHM ECG Compared to ECG 05/16/2024 15:58:35 No significant changes Electronically Signed On 05-17-2024 11:32:54 HEEL SORTER by Asher Swift M.D.
--- NOTE | 2024-05-16 16:12 | ECG_ITS ---
Test Date: 2024-05-16 15:58:35 Measurements Intervals [place] Rate: 94 P: -40 ID: 160 QRS: 263 QRSD: 182 T: 83 QT: 451 QTc: 565 Interpretive Statements ELECTRONIC VENTRICULAR PACEMAKER ABNORMAL RHYTHM ECG Compared to ECG 10/08/2023 19:50:51 Sinus rhythm no longer present Electronically Signed On 05-17-2024 11:31:22 SECRETARY RECEPTIONIST by Asher Swift M.D.
--- NOTE | 2024-05-16 16:14 | PC.NURSE ---
Per MD Savage, pt. trialed on RA. 02 96% on RA. However, when pt. exerted himself while lying in bed his 02 dropped to 78% with good pleth. Per MD Savage, pt. ok to remain on 3L NC.
--- NOTE | 2024-05-16 16:24 | ED.GENADULT ---
HPI - General Adult General Chief complaint: Shortness of Breath/Dyspnea Stated complaint: SOB Time Seen by Provider: 05/16/24 15:49 History of Present Illness HPI narrative: 73-year-old male sent retirement after failing to respond to pneumonia treatment. He has been on antibiotics without improvement. The patient states he still feels short of breath. He denies fevers chills chest pain pain nausea vomiting diarrhea. Patient is DNR DNI medications okay. Related Data Home Medications ?Medication ?Instructions ?Recorded ?Confirmed ?Last Taken ?Type duloxetine 20 mg capsule,delayed 20 mg PO DAILY 08/25/23 12/29/23 Unknown History release aspirin 81 mg capsule 81 mg PO DAILY 10/09/23 12/29/23 Unknown History furosemide 40 mg tablet 40 mg PO BID 10/09/23 12/29/23 Unknown History sacubitril 24 mg-valsartan 26 mg 1 tablet PO DAILY 10/09/23 12/29/23 Unknown History tablet (Entresto) Allergies Allergy/AdvReac Type Severity Reaction Status Date / Time Penicillins Allergy Mild Unknown Verified 10/09/23 00:14 [facility] Past Medical History Medical History Orthostatic hypotension Depression Complete heart block Nonsustained ventricular tachycardia Diabetic peripheral neuropathy Insulin dependent type 2 diabetes mellitus Paroxysmal atrial tachycardia Heart failure with reduced ejection fraction Nonischemic cardiomyopathy Vitamin D deficiency Dyslipidemia Essential (primary) hypertension Peripheral arterial disease Apical mural thrombus Shoulder fracture, left Surgical History Surgical History History of left below knee amputation History of complete ray amputation of third toe of right foot (05/2020) Due to osteomyelitis. History of permanent cardiac pacemaker placement (07/2019) Medtronic BiV[facility]ICD [facility] at [facility]. Family History Family History Other No problems noted. Sibling Acute myocardial infarction Mother Lung cancer Social History Social History Social History: Lives alone in an apartment. He does not drive. Works for [employer]. Rare alcohol use. Lifelong nonsmoker. No drug use. No pets Surrogate medical decision maker: Adrianne Pa, niece. Code status: Full code. Smoking status: Never smoker Second hand tobacco smoke exposure: No Alcohol intake: never Substance use: never Substance use type: does not use Other substance usage details: once a year has an expensive bottle of alcohol Do You Feel Safe in your Home?: Yes Lack of Transportation: No Lack of Food: Never True Current Housing: I Have Housing Concerned About Future Housing: No Difficulty Paying Gas/Electric Bills: No Difficulty Paying for Meds: No Currently Unemployed: No Education: Bachelor's Degree Difficulty w/ Childcare or Family Care: No Living arrangements: with family Additional living arrangements comments: Lives with [id number]. . His in only daughter were killed in a car accident. 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 Spiritual care concerns: No Agree to blood products: Yes Exam Narrative: APPEARANCE: Patient appears chronically unwell, cachectic Head: atraumatic. EYES: EOMI, NOSE: Atraumatic NECK: Trachea midline RESPIRATORY: Tachypneic, hypoxic on room air, scattered rhonchi CARDIOVASCULAR: RRR, ABDOMINAL: Non-distended soft nontender MUSCULOSKELETAl: Lower extremity amputation NEURO: Alert. Moving 4/4 extremities SKIN:: Warm, dry. Normal color PSYCHIATRIC: Normal affect Course Vital Signs Vital signs: Vital Signs Temperature 97.7 F 05/16/24 15:54 Pulse Rate 100 05/16/24 15:54 Respiratory Rate 28 H 05/16/24 15:54 Blood Pressure 100/69 05/16/24 15:54 Pulse Oximetry 100 05/16/24 15:54 Oxygen Delivery Nasal Cannula 05/16/24 15:54 Oxygen Flow Rate 3 05/16/24 15:54 Temperature 97.7 F 05/16/24 15:54 Pulse Rate 83 05/16/24 18:50 Respiratory Rate 16 05/16/24 18:50 Blood Pressure 104/80 05/16/24 18:50 Pulse Oximetry 100 05/16/24 18:50 Oxygen Delivery Nasal Cannula 05/16/24 15:54 Oxygen Flow Rate 3 05/16/24 15:54 Medical Decision Making MDM Narrative Medical decision making narrative: -Course: 73-year-old unhealthy appearing male sent in from the retirement after failing responded pneumonia treatment. While patient is not hypoxic on room air if he makes any sort of movement whatsoever he quickly desaturates into the high 70s low 80s. Placed on 2 L nasal cannula. Sepsis workup ordered. Patient started on broad-spectrum antibiotics while his workup was being completed. Workup showed a white count 6.7. Lactic 1.6 BNP elevated [place] [address] PE showed cardiomegaly with bilateral pleural effusions. Review of echocardiogram 2022 shows an ejection fraction of 20-25% with diastolic dysfunction. Patient given 40 mg of Lasix. Viral swabs negative. Urine not indicative infection. Blood cultures pending. Patient be admitted the hospital further management septic respiratory failure. -DDX includes but is not limited to: Pneumonia, CHF, COPD, viral syndrome, sepsis UTI dehydration Vital Signs Vital Signs: Vital Signs Temperature 97.7 F 05/16/24 15:54 Pulse Rate 100 05/16/24 15:54 Respiratory Rate 28 H 05/16/24 15:54 Blood Pressure 100/69 05/16/24 15:54 Pulse Oximetry 100 05/16/24 15:54 Oxygen Delivery Nasal Cannula 05/16/24 15:54 Oxygen Flow Rate 3 05/16/24 15:54 Temperature 97.7 F 05/16/24 15:54 Pulse Rate 83 05/16/24 18:50 Respiratory Rate 16 05/16/24 18:50 Blood Pressure 104/80 05/16/24 18:50 Pulse Oximetry 100 05/16/24 18:50 Oxygen Delivery Nasal Cannula 05/16/24 15:54 Oxygen Flow Rate 3 05/16/24 15:54 Lab Data 05/16/24 17:00 05/16/24 17:00 Labs: Lab Results 05/16/24 05/16/24 05/16/24 Range/Units 17:00 17:00 17:00 WBC 6.7 (4.5-10.0) K/mm3 RBC 4.05 L (4.6-6.20) M/mm3 Hgb 10.1 L (14.0-18.0) g/dL Hct 33.5 L (42.0-52.0) % MCV 82.7 (80-100) fl MCH 24.9 L (26-34) pg MCHC 30.1 L (32-36) g/dl RDW 17.6 H (11.5-14.5) % Plt Count 408 H (150-375) k/mm3 MPV 11.0 H (7.4-10.4) fl Immature Gran % (Auto) 0.3 (0-0.5) % Neut % (Auto) 79.8 H (45.5-73.1) % Lymph % (Auto) 7.9 L (18.3-44.2) % [place] % (Auto) 9.4 H (2.6-8.5) % Eos % (Auto) 1.9 (0-4.4) % Baso % (Auto) 0.7 (0.2-1.2) % Lymph # (Auto) 0.53 L (0.9-3.2) K/mm3 [place] # (Auto) 0.6 (0.1-0.6) K/mm3 Eos # (Auto) 0.1 (0-0.3) K/mm3 Baso # (Auto) 0.1 (0.0-0.1) K/mm3 Abs Immat Gran (auto) 0.02 (0.00-0.031) K/mm3 Absolute Neuts (auto) 5.3 (1.3-6.7) K/mm3 Absolute Nucleated RBC 0.000 (0.0-0.012) K/mm3 Nucleated RBC % 0.0 (0.0-0.2) % PT 14.2 (11.1-14.7) Seconds INR 1.1 APTT 32.9 (22.3-36.8) Seconds D-Dimer 3.83 H (<0.48) ug/mL Sodium Cancelled 139 Potassium Cancelled 4.5 Chloride Cancelled Carbon Dioxide Anion Gap BUN Creatinine Estim Creat Clear Calc Estimated GFR Glucose Lactic Acid (0.7-2.0) mmol/L Calcium Phosphorus (2.5-4.5) mg/dL Magnesium (1.6-2.3) mg/dL Total Bilirubin AST ALT Alkaline Phosphatase Troponin I (0.000-0.034) ng/mL NT-Pro-B Natriuret Pep Total Protein Albumin Lipase (23-300) U/L TSH (Reflex) (0.465-4.68) uIU/mL Free T4 (0.78-2.19) ng/dL Total T3 (0.97-1.69) NG/ML Urine Color (Yellow) Urine Appearance (Clear) Urine pH (5.0-9.0) Ur Specific [place] (1.001-1.035) Urine Protein (Negative) mg/dL Urine Glucose (UA) (Negative) mg/dL Urine Ketones (Negative) mg/dL Ur Blood (Man) (Negative) Urine Nitrate (Negative) Urine Bilirubin (Negative) Urine Urobilinogen (<2.0) mg/dL Leukocyte Esterase Rfl (Negative) CARINA/UL Nasal MRSA (PCR) (NOT DETECTE) Influenza A (RT-PCR) (Negative) Influenza B (RT-PCR) (Negative) RSV (RT-PCR) (Negative) SARS-CoV-2 RNA (RT-PCR) (Negative) 05/16/24 05/16/24 05/16/24 Range/Units 17:00 17:00 17:00 WBC (4.5-10.0) K/mm3 RBC (4.6-6.20) M/mm3 Hgb (14.0-18.0) g/dL Hct (42.0-52.0) % MCV (80-100) fl MCH (26-34) pg MCHC (32-36) g/dl RDW (11.5-14.5) % Plt Count (150-375) k/mm3 MPV (7.4-10.4) fl Immature Gran % (Auto) (0-0.5) % Neut % (Auto) (45.5-73.1) % Lymph % (Auto) (18.3-44.2) % [place] % (Auto) (2.6-8.5) % Eos % (Auto) (0-4.4) % Baso % (Auto) (0.2-1.2) % Lymph # (Auto) (0.9-3.2) K/mm3 [place] # (Auto) (0.1-0.6) K/mm3 Eos # (Auto) (0-0.3) K/mm3 Baso # (Auto) (0.0-0.1) K/mm3 Abs Immat Gran (auto) (0.00-0.031) K/mm3 Absolute Neuts (auto) (1.3-6.7) K/mm3 Absolute Nucleated RBC (0.0-0.012) K/mm3 Nucleated RBC % (0.0-0.2) % PT (11.1-14.7) Seconds INR APTT (22.3-36.8) Seconds D-Dimer (<0.48) ug/mL Sodium Potassium Chloride 95 L Carbon Dioxide Cancelled 38 H Anion Gap Cancelled 6 BUN Cancelled Creatinine Estim Creat Clear Calc Estimated GFR Glucose Lactic Acid (0.7-2.0) mmol/L Calcium Phosphorus (2.5-4.5) mg/dL Magnesium (1.6-2.3) mg/dL Total Bilirubin AST ALT Alkaline Phosphatase Troponin I (0.000-0.034) ng/mL NT-Pro-B Natriuret Pep Total Protein Albumin Lipase (23-300) U/L TSH (Reflex) (0.465-4.68) uIU/mL Free T4 (0.78-2.19) ng/dL Total T3 (0.97-1.69) NG/ML Urine Color (Yellow) Urine Appearance (Clear) Urine pH (5.0-9.0) Ur Specific [place] (1.001-1.035) Urine Protein (Negative) mg/dL Urine Glucose (UA) (Negative) mg/dL Urine Ketones (Negative) mg/dL Ur Blood (Man) (Negative) Urine Nitrate (Negative) Urine Bilirubin (Negative) Urine Urobilinogen (<2.0) mg/dL Leukocyte Esterase Rfl (Negative) CARINA/UL Nasal MRSA (PCR) (NOT DETECTE) Influenza A (RT-PCR) (Negative) Influenza B (RT-PCR) (Negative) RSV (RT-PCR) (Negative) SARS-CoV-2 RNA (RT-PCR) (Negative) 05/16/24 05/16/24 05/16/24 Range/Units 17:00 17:00 17:00 WBC (4.5-10.0) K/mm3 RBC (4.6-6.20) M/mm3 Hgb (14.0-18.0) g/dL Hct (42.0-52.0) % MCV (80-100) fl MCH (26-34) pg MCHC (32-36) g/dl RDW (11.5-14.5) % Plt Count (150-375) k/mm3 MPV (7.4-10.4) fl Immature Gran % (Auto) (0-0.5) % Neut % (Auto) (45.5-73.1) % Lymph % (Auto) (18.3-44.2) % [place] % (Auto) (2.6-8.5) % Eos % (Auto) (0-4.4) % Baso % (Auto) (0.2-1.2) % Lymph # (Auto) (0.9-3.2) K/mm3 [place] # (Auto) (0.1-0.6) K/mm3 Eos # (Auto) (0-0.3) K/mm3 Baso # (Auto) (0.0-0.1) K/mm3 Abs Immat Gran (auto) (0.00-0.031) K/mm3 Absolute Neuts (auto) (1.3-6.7) K/mm3 Absolute Nucleated RBC (0.0-0.012) K/mm3 Nucleated RBC % (0.0-0.2) % PT (11.1-14.7) Seconds INR APTT (22.3-36.8) Seconds D-Dimer (<0.48) ug/mL Sodium Potassium Chloride Carbon Dioxide Anion Gap BUN 21 H Creatinine Cancelled 0.63 L Estim Creat Clear Calc Cancelled 80 Estimated GFR Cancelled Glucose Lactic Acid (0.7-2.0) mmol/L Calcium Phosphorus (2.5-4.5) mg/dL Magnesium (1.6-2.3) mg/dL Total Bilirubin AST ALT Alkaline Phosphatase Troponin I (0.000-0.034) ng/mL NT-Pro-B Natriuret Pep Total Protein Albumin Lipase (23-300) U/L TSH (Reflex) (0.465-4.68) uIU/mL Free T4 (0.78-2.19) ng/dL Total T3 (0.97-1.69) NG/ML Urine Color (Yellow) Urine Appearance (Clear) Urine pH (5.0-9.0) Ur Specific [place] (1.001-1.035) Urine Protein (Negative) mg/dL Urine Glucose (UA) (Negative) mg/dL Urine Ketones (Negative) mg/dL Ur Blood (Man) (Negative) Urine Nitrate (Negative) Urine Bilirubin (Negative) Urine Urobilinogen (<2.0) mg/dL Leukocyte Esterase Rfl (Negative) CARINA/UL Nasal MRSA (PCR) (NOT DETECTE) Influenza A (RT-PCR) (Negative) Influenza B (RT-PCR) (Negative) RSV (RT-PCR) (Negative) SARS-CoV-2 RNA (RT-PCR) (Negative) 05/16/24 05/16/24 05/16/24 Range/Units 17:00 17:00 17:00 WBC (4.5-10.0) K/mm3 RBC (4.6-6.20) M/mm3 Hgb (14.0-18.0) g/dL Hct (42.0-52.0) % MCV (80-100) fl MCH (26-34) pg MCHC (32-36) g/dl RDW (11.5-14.5) % Plt Count (150-375) k/mm3 MPV (7.4-10.4) fl Immature Gran % (Auto) (0-0.5) % Neut % (Auto) (45.5-73.1) % Lymph % (Auto) (18.3-44.2) % [place] % (Auto) (2.6-8.5) % Eos % (Auto) (0-4.4) % Baso % (Auto) (0.2-1.2) % Lymph # (Auto) (0.9-3.2) K/mm3 [place] # (Auto) (0.1-0.6) K/mm3 Eos # (Auto) (0-0.3) K/mm3 Baso # (Auto) (0.0-0.1) K/mm3 Abs Immat Gran (auto) (0.00-0.031) K/mm3 Absolute Neuts (auto) (1.3-6.7) K/mm3 Absolute Nucleated RBC (0.0-0.012) K/mm3 Nucleated RBC % (0.0-0.2) % PT (11.1-14.7) Seconds INR APTT (22.3-36.8) Seconds D-Dimer (<0.48) ug/mL Sodium Potassium Chloride Carbon Dioxide Anion Gap BUN Creatinine Estim Creat Clear Calc Estimated GFR > 60 Glucose Cancelled 207 H Lactic Acid 1.6 (0.7-2.0) mmol/L Calcium Cancelled 9.0 Phosphorus 4.0 (2.5-4.5) mg/dL Magnesium 2.3 (1.6-2.3) mg/dL Total Bilirubin Cancelled AST ALT Alkaline Phosphatase Troponin I (0.000-0.034) ng/mL NT-Pro-B Natriuret Pep Total Protein Albumin Lipase (23-300) U/L TSH (Reflex) (0.465-4.68) uIU/mL Free T4 (0.78-2.19) ng/dL Total T3 (0.97-1.69) NG/ML Urine Color (Yellow) Urine Appearance (Clear) Urine pH (5.0-9.0) Ur Specific [place] (1.001-1.035) Urine Protein (Negative) mg/dL Urine Glucose (UA) (Negative) mg/dL Urine Ketones (Negative) mg/dL Ur Blood (Man) (Negative) Urine Nitrate (Negative) Urine Bilirubin (Negative) Urine Urobilinogen (<2.0) mg/dL Leukocyte Esterase Rfl (Negative) CARINA/UL Nasal MRSA (PCR) (NOT DETECTE) Influenza A (RT-PCR) (Negative) Influenza B (RT-PCR) (Negative) RSV (RT-PCR) (Negative) SARS-CoV-2 RNA (RT-PCR) (Negative) 05/16/24 05/16/24 05/16/24 Range/Units 17:00 17:00 17:00 WBC (4.5-10.0) K/mm3 RBC (4.6-6.20) M/mm3 Hgb (14.0-18.0) g/dL Hct (42.0-52.0) % MCV (80-100) fl MCH (26-34) pg MCHC (32-36) g/dl RDW (11.5-14.5) % Plt Count (150-375) k/mm3 MPV (7.4-10.4) fl Immature Gran % (Auto) (0-0.5) % Neut % (Auto) (45.5-73.1) % Lymph % (Auto) (18.3-44.2) % [place] % (Auto) (2.6-8.5) % Eos % (Auto) (0-4.4) % Baso % (Auto) (0.2-1.2) % Lymph # (Auto) (0.9-3.2) K/mm3 [place] # (Auto) (0.1-0.6) K/mm3 Eos # (Auto) (0-0.3) K/mm3 Baso # (Auto) (0.0-0.1) K/mm3 Abs Immat Gran (auto) (0.00-0.031) K/mm3 Absolute Neuts (auto) (1.3-6.7) K/mm3 Absolute Nucleated RBC (0.0-0.012) K/mm3 Nucleated RBC % (0.0-0.2) % PT (11.1-14.7) Seconds INR APTT (22.3-36.8) Seconds D-Dimer (<0.48) ug/mL Sodium Potassium Chloride Carbon Dioxide Anion Gap BUN Creatinine Estim Creat Clear Calc Estimated GFR Glucose Lactic Acid (0.7-2.0) mmol/L Calcium Phosphorus (2.5-4.5) mg/dL Magnesium (1.6-2.3) mg/dL Total Bilirubin 0.8 AST Cancelled 29 ALT Cancelled 11 Alkaline Phosphatase Cancelled Troponin I (0.000-0.034) ng/mL NT-Pro-B Natriuret Pep Total Protein Albumin Lipase (23-300) U/L TSH (Reflex) (0.465-4.68) uIU/mL Free T4 (0.78-2.19) ng/dL Total T3 (0.97-1.69) NG/ML Urine Color (Yellow) Urine Appearance (Clear) Urine pH (5.0-9.0) Ur Specific [place] (1.001-1.035) Urine Protein (Negative) mg/dL Urine Glucose (UA) (Negative) mg/dL Urine Ketones (Negative) mg/dL Ur Blood (Man) (Negative) Urine Nitrate (Negative) Urine Bilirubin (Negative) Urine Urobilinogen (<2.0) mg/dL Leukocyte Esterase Rfl (Negative) CARINA/UL Nasal MRSA (PCR) (NOT DETECTE) Influenza A (RT-PCR) (Negative) Influenza B (RT-PCR) (Negative) RSV (RT-PCR) (Negative) SARS-CoV-2 RNA (RT-PCR) (Negative) 05/16/24 05/16/24 05/16/24 Range/Units 17:00 17:00 17:00 WBC (4.5-10.0) K/mm3 RBC (4.6-6.20) M/mm3 Hgb (14.0-18.0) g/dL Hct (42.0-52.0) % MCV (80-100) fl MCH (26-34) pg MCHC (32-36) g/dl RDW (11.5-14.5) % Plt Count (150-375) k/mm3 MPV (7.4-10.4) fl Immature Gran % (Auto) (0-0.5) % Neut % (Auto) (45.5-73.1) % Lymph % (Auto) (18.3-44.2) % [place] % (Auto) (2.6-8.5) % Eos % (Auto) (0-4.4) % Baso % (Auto) (0.2-1.2) % Lymph # (Auto) (0.9-3.2) K/mm3 [place] # (Auto) (0.1-0.6) K/mm3 Eos # (Auto) (0-0.3) K/mm3 Baso # (Auto) (0.0-0.1) K/mm3 Abs Immat Gran (auto) (0.00-0.031) K/mm3 Absolute Neuts (auto) (1.3-6.7) K/mm3 Absolute Nucleated RBC (0.0-0.012) K/mm3 Nucleated RBC % (0.0-0.2) % PT (11.1-14.7) Seconds INR APTT (22.3-36.8) Seconds D-Dimer (<0.48) ug/mL Sodium Potassium Chloride Carbon Dioxide Anion Gap BUN Creatinine Estim Creat Clear Calc Estimated GFR Glucose Lactic Acid (0.7-2.0) mmol/L Calcium Phosphorus (2.5-4.5) mg/dL Magnesium (1.6-2.3) mg/dL Total Bilirubin AST ALT Alkaline Phosphatase 153 H Troponin I < 0.012 (0.000-0.034) ng/mL NT-Pro-B Natriuret Pep Cancelled 6800 H Total Protein Cancelled 8.0 Albumin Cancelled Lipase (23-300) U/L TSH (Reflex) (0.465-4.68) uIU/mL Free T4 (0.78-2.19) ng/dL Total T3 (0.97-1.69) NG/ML Urine Color (Yellow) Urine Appearance (Clear) Urine pH (5.0-9.0) Ur Specific [place] (1.001-1.035) Urine Protein (Negative) mg/dL Urine Glucose (UA) (Negative) mg/dL Urine Ketones (Negative) mg/dL Ur Blood (Man) (Negative) Urine Nitrate (Negative) Urine Bilirubin (Negative) Urine Urobilinogen (<2.0) mg/dL Leukocyte Esterase Rfl (Negative) CARINA/UL Nasal MRSA (PCR) (NOT DETECTE) Influenza A (RT-PCR) (Negative) Influenza B (RT-PCR) (Negative) RSV (RT-PCR) (Negative) SARS-CoV-2 RNA (RT-PCR) (Negative) 05/16/24 05/16/24 05/16/24 Range/Units 17:00 17:04 18:40 WBC (4.5-10.0) K/mm3 RBC (4.6-6.20) M/mm3 Hgb (14.0-18.0) g/dL Hct (42.0-52.0) % MCV (80-100) fl MCH (26-34) pg MCHC (32-36) g/dl RDW (11.5-14.5) % Plt Count (150-375) k/mm3 MPV (7.4-10.4) fl Immature Gran % (Auto) (0-0.5) % Neut % (Auto) (45.5-73.1) % Lymph % (Auto) (18.3-44.2) % [place] % (Auto) (2.6-8.5) % Eos % (Auto) (0-4.4) % Baso % (Auto) (0.2-1.2) % Lymph # (Auto) (0.9-3.2) K/mm3 [place] # (Auto) (0.1-0.6) K/mm3 Eos # (Auto) (0-0.3) K/mm3 Baso # (Auto) (0.0-0.1) K/mm3 Abs Immat Gran (auto) (0.00-0.031) K/mm3 Absolute Neuts (auto) (1.3-6.7) K/mm3 Absolute Nucleated RBC (0.0-0.012) K/mm3 Nucleated RBC % (0.0-0.2) % PT (11.1-14.7) Seconds INR APTT (22.3-36.8) Seconds D-Dimer (<0.48) ug/mL Sodium Potassium Chloride Carbon Dioxide Anion Gap BUN Creatinine Estim Creat Clear Calc Estimated GFR Glucose Lactic Acid (0.7-2.0) mmol/L Calcium Phosphorus (2.5-4.5) mg/dL Magnesium (1.6-2.3) mg/dL Total Bilirubin AST ALT Alkaline Phosphatase Troponin I (0.000-0.034) ng/mL NT-Pro-B Natriuret Pep Total Protein Albumin 3.6 Lipase 12 L (23-300) U/L TSH (Reflex) 5.380 H (0.465-4.68) uIU/mL Free T4 1.63 (0.78-2.19) ng/dL Total T3 1.10 (0.97-1.69) NG/ML Urine Color Yellow (Yellow) Urine Appearance Clear (Clear) Urine pH 6.0 (5.0-9.0) Ur Specific [place] 1.021 (1.001-1.035) Urine Protein Negative (Negative) mg/dL Urine Glucose (UA) 3+ H (Negative) mg/dL Urine Ketones Negative (Negative) mg/dL Ur Blood (Man) Negative (Negative) Urine Nitrate Negative (Negative) Urine Bilirubin Negative (Negative) Urine Urobilinogen 1.0 (<2.0) mg/dL Leukocyte Esterase Rfl Negative (Negative) CARINA/UL Nasal MRSA (PCR) Not detected (NOT DETECTE) Influenza A (RT-PCR) Negative (Negative) Influenza B (RT-PCR) Negative (Negative) RSV (RT-PCR) Negative (Negative) SARS-CoV-2 RNA (RT-PCR) Negative (Negative) 05/16/24 Range/Units 20:21 WBC (4.5-10.0) K/mm3 RBC (4.6-6.20) M/mm3 Hgb (14.0-18.0) g/dL Hct (42.0-52.0) % MCV (80-100) fl MCH (26-34) pg MCHC (32-36) g/dl RDW (11.5-14.5) % Plt Count (150-375) k/mm3 MPV (7.4-10.4) fl Immature Gran % (Auto) (0-0.5) % Neut % (Auto) (45.5-73.1) % Lymph % (Auto) (18.3-44.2) % [place] % (Auto) (2.6-8.5) % Eos % (Auto) (0-4.4) % Baso % (Auto) (0.2-1.2) % Lymph # (Auto) (0.9-3.2) K/mm3 [place] # (Auto) (0.1-0.6) K/mm3 Eos # (Auto) (0-0.3) K/mm3 Baso # (Auto) (0.0-0.1) K/mm3 Abs Immat Gran (auto) (0.00-0.031) K/mm3 Absolute Neuts (auto) (1.3-6.7) K/mm3 Absolute Nucleated RBC (0.0-0.012) K/mm3 Nucleated RBC % (0.0-0.2) % PT (11.1-14.7) Seconds INR APTT (22.3-36.8) Seconds D-Dimer (<0.48) ug/mL Sodium Potassium Chloride Carbon Dioxide Anion Gap BUN Creatinine Estim Creat Clear Calc Estimated GFR Glucose Lactic Acid (0.7-2.0) mmol/L Calcium Phosphorus (2.5-4.5) mg/dL Magnesium (1.6-2.3) mg/dL Total Bilirubin AST ALT Alkaline Phosphatase Troponin I 0.013 (0.000-0.034) ng/mL NT-Pro-B Natriuret Pep Total Protein Albumin Lipase (23-300) U/L TSH (Reflex) (0.465-4.68) uIU/mL Free T4 (0.78-2.19) ng/dL Total T3 (0.97-1.69) NG/ML Urine Color (Yellow) Urine Appearance (Clear) Urine pH (5.0-9.0) Ur Specific [place] (1.001-1.035) Urine Protein (Negative) mg/dL Urine Glucose (UA) (Negative) mg/dL Urine Ketones (Negative) mg/dL Ur Blood (Man) (Negative) Urine Nitrate (Negative) Urine Bilirubin (Negative) Urine Urobilinogen (<2.0) mg/dL Leukocyte Esterase Rfl (Negative) CARINA/UL Nasal MRSA (PCR) (NOT DETECTE) Influenza A (RT-PCR) (Negative) Influenza B (RT-PCR) (Negative) RSV (RT-PCR) (Negative) SARS-CoV-2 RNA (RT-PCR) (Negative) ABG Data ABG results: 05/16/24 16:27 Puncture Site Left radial ABG pH 7.485 H ABG pCO2 49.1 H ABG pO2 104.1 H ABG PO2/FiO2 Ratio 3.25 ABG HCO3 36.2 H ABG O2 Saturation 98.0 ABG O2 Content 14.4 L ABG Base Excess 11.3 A-a Gradient 66.6 Oxyhemoglobin 97.5 Total Hemoglobin 10.4 L O2 Delivery Device Nasal cannula O2 Liters/Min 3.0 FiO2 32 Critical Care Time Critical Care Time Critical Care Time: Yes Total Critical Care Time: 35 Discharge Plan Discharge Patient Language: Citizen Of [place] Prescriptions: No Action Jardiance 10 mg Tablet 10 mg PO DAILY Qty: 30 0RF cholecalciferol (vitamin D3) [Vitamin D3] 25 mcg (1,000 unit) Tablet 1,000 unit PO DAILY Qty: 30 0RF carvedilol [Coreg] 3.125 mg Tablet 3.125 mg PO Q12H 30 Days Qty: 60 0RF magnesium oxide 400 mg (241.3 mg magnesium) tablet 500 mg PO DAILY Qty: 30 0RF furosemide 40 mg tablet 40 mg PO BID Entresto 24-26 mg tablet 1 tablet PO DAILY aspirin 81 mg Capsule 81 mg PO DAILY povidone-iodine [Betadine] 10 % solution 1 applic topical BID Qty: 946 0RF miconazole nitrate 2 % cream 1 applic topical BID Qty: 28 0RF duloxetine 20 mg Capsule,Delayed Release(Dr/Ec) 20 mg PO DAILY Follow-up/Referrals: Deion Pereira MD [Primary Care Provider] -
[2024-05-16 16:29] LABS: Alveolar/Arterial O2 Gradient 66.6 mmHg; Base Excess ABG 11.3 mEq/l (+/-2.0); Device NASAL CANNULA; Fractional Inspired Oxygen 32 %; HCO3 ABG 36.2 mEq/l (22.0-26.0); Modified Allen's Test Pass; Oxygen Content ABG 14.4 %vol (16.0-22.0); Oxyhemoglobin 97.5 % THb (90.0-100.0); PCO2 ABG 49.1 mmHg (35.0-45.0); PO2 ABG 104.1 mmHg (80.0-100.0); PO2 FiO2 Ratio Arterial Blood 3.25 %; Site Drawn LEFT RADIAL; Total Hemoglobin 10.4 g/dL (12.0-18.0); pH ABG 7.485 (7.350-7.450)
--- OUTSIDE RECORDS SUMMARY | 2024-05-16 16:42 | XMS_ITS | Encounter Summary ---
Author Organization [facility] Address [address] [place] [address] Care Team Providers Care Double Reamer Operator Name Role Phone Helen Pereira MD Primary Care Provider Encounter Details Date Type Department Care Team (Late st Contact Info) Description 12/27/2020 Ophth Exam [facility] [address] [place] [id number] Justus Lawrence , DO [address] [place] [address] Social History Tobacco Use Types Packs/Day Years Used Date Smoking Tobacco: Never Assessed Sex and Gender Information Value Date Recorded Sex Assigned at Not on file Gender Identity Not on file Sexual Orientation Not on file documented as of this encounter Plan of Treatment Not on file documented as of this encounter Visit Diagnoses Not on filedocumented in this encounter Care Teams Double Reamer Operator Relationship Specialty Start Date End Date Helen Pereira MD [address] [place] [id number] PCP - General Family Medicine 12/27/20 documented as of this encounter
--- OUTSIDE RECORDS SUMMARY | 2024-05-16 16:43 | XMS_ITS | Patient Health Summary ---
Author Organization [facility] Address [address] 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,non-owned Affiliates and Associated Physician Practices is amultiple site organization consisting of ambulatory clinics and hospital sitesin [place], [place], [place] and [place]. This disclosure is being madepursuant to the Care Everywhere program and may not contain all information available regarding this patient. Last updated 18.[facility] Allergies * Penicillins(Swelling) -Medium Criticality Medications * Be aware that medications may not be up to date on this document. Alwaysverify current medications with the patient. * carvedilol (Coreg) 3.125 MG tablet Take 1 (one) tablet by mouth 2 times daily with morning and evening meal * magnesium oxide (Mag-Ox) 400 MG tablet Take 1 (one) tablet by mouth once daily * vitamin D3 (Cholecalciferol) 25 MCG (1000 UNITS) tablet Take 2 (two) tablets by mouth once daily * ferrous sulfate 325 (65 FE) MG tablet(Started 08/26/2023) Take 1 (one) tablet by mouth daily with breakfast * empagliflozin (Jardiance) 10 MG tablet(Started 08/25/2023) Take 1 (one) tablet by mouth once daily * insulin lispro (HumaLOG) 100 UNIT/ML cartridge Sliding scale * insulin glargine (Lantus/Semglee) 100 units/ml injection Inject 4 (four) Units subcutaneously 2 times daily * DULoxetine (Cymbalta) 20 MG capsule(Started 01/30/2024) * furosemide (Lasix) 40 MG tablet(Started 01/17/2024) * Entresto 24-26 MG tablet(Started 01/21/2024) Active Problems Problem Noted Date Diagnosed Date S/P unilateral BKA (below knee amputation), left 08/24/2023 Severe protein-calorie malnutrition 08/18/2023 Necrotizing fasciitis 08/15/2023 Elevated C-reactive protein (CRP) 08/15/2023 Elevated erythrocyte sedimentation rate 08/15/19 Systolic congestive heart failure 08/15/2023 CAD (coronary artery disease) 08/15/2023 History of complete heart block 08/15/2023 Status post biventricular pacemaker 08/15/2023 Cardiac resynchronization th erapy defibrillator (GERMAN PROFESSOR-D) in place 08/07/2019 08/17/2023 Immunizations * Covid CyberX primary monovalent 12+ yr 0.3mL Purple cap(Given 07/03/2020, 06/08/2020) * INFLUENZA VACCINE, HIGH-DOSE, QUADR. (FLUZONE HIGH-DOSE QUADRIVALENT; 65Y+), 0.7 ML (HD-IIV4)(Given 01/13/2023, 02/16/2022, 02/05/2021) * INFLUENZA VACCINE, HIGH-DOSE, TRIV. (FLUZONE HIGH-DOSE TRIVALENT; 65Y+) (HD-IIV3)(Given 02/23/2018) * PNEUMOCOCCAL PCV20 CONJ VAC IM(Given 01/13/2023, 02/16/2022) * Pneumococcal Pcv13 Conj(Given 01/31/2019) * iNFLUENZA VACCINE, RECOM-JARAMILLO, QUADR. (FLUBLOCK QUADRIVALENT; 18Y+) (RIV4)(Given 01/17/2020, 01/31/2019) Social History Tobacco Use Types Packs/Day Years Used Date Smoking Tobacco: Never Passive Smoke Exposure: Never Smokeless Tobacco: Never Tobacco Cessation:Counseling Given: No AUDIT-C Answer Date Recorded Q1: How often do you have a drink containing alc ohol? Monthly or less 08/15/2023 Q2: How many drinks containi ng alcohol do you have on a typical day when you are drinking? 1 or 2 08/15/2023 Q3: How often do you have si x or more drinks on one occasion? Less than monthly 08/15/2023 Overall Financial Resource Strain (CARDIA) Answe r Date Recorded How hard is it for you to pa y for the very basics like food, housing, medical care, and heating? Not hard at all 08/15/2023 [facility] [place] of Occupat ional Health - Occupational Stress Questionnaire Answer Date Recorded Do you feel stress - tense, restless, nervous, or anxious, or unable to sleep at night because your mind is troubled all the time - these days? Only a little 08/15/2023 Hunger Vital Sign Answer Date Recorded Within the past 12 months, y ou worried that your food would run out before you got the money to buy more. Never true 08/15/19 24 Within the past 12 months, t he food you bought just didn't last and you didn't have money to get more. Never true 08/15/2023 PRAPARE - Transportation Answer Date Re corded In the past 12 months, has l ack of transportation kept you from medical appointments or from getting medications? No 07/18 In the past 12 months, has l ack of transportation kept you from meetings, work, or from getting things needed for daily living? No 08/15/2023 Housing Stability Vital Sign Answer Satinder e Recorded In the last 12 months, was t here a time when you were not able to pay the mortgage or rent on time? No 08/15/2023 In the last 12 months, how many places have you lived? 1 08/15/2023 In the last 12 months, was t here a time when you did not have a steady place to sleep or slept in a correction (including now)? No 08/15/2023 Sex and Gender Information Value Date Recorded Sex Assigned at Not on file Gender Identity Not on file Sexual Orientation Not on file Last Filed Vital Signs Vital Sign Reading Time Taken Comments Blood Pressure 96/59 02/08/2024 10:45 AM CDT Pulse 57 02/08/2024 10:45 AM CDT Temperature 36.4 ??C (97.5 ??F) 02/08/2024 10:45 AM C DT Respiratory Rate 20 09/29/2023 8:50 AM CDT Oxygen Saturation 95% 02/08/2024 10:45 AM CDT Inhaled Oxygen Concentration 40% 08/15/2023 8 :46 AM CDT Weight 65.8 kg (145 lb) 02/08/2024 10:45 AM CDT Height 177.8 cm (5' 10 ) 02/08/2024 10:45 AM CDT Body Mass Index 20.81 02/08/2024 10:45 AM CDT Procedures * VAS ARTERIAL ANKLE ARM INDEX(Performed 02/08/2024) Performed for PAD (peripheral artery disease) ([facility]) * PROC WOUND DEBRIDEMENT </> 20CM(Performed 02/01/2024) Performed for Osteomyelitis of right foot, unspecified type ([facility]), Non-healing ulcer of right ankle, limited to breakdown of skin ([facility]) * CULTURE WOUND+GRAM STAIN(Performed 02/01/2024) Performed for Osteomyelitis of right foot, unspecified type ([facility]) * APHERESIS/TRANSFUSION ORDER(Performed 08/26/2023) * GLUCOSE - POINT OF CARE(Performed 08/25/2023) * GLUCOSE - POINT OF CARE(Performed 08/25/2023) * PT-INR [facility](Performed 08/25/2023) * PHOSPHORUS BLOOD(Performed 08/25/2023) * MAGNESIUM BLOOD(Performed 08/25/2023) * COMPREHENSIVE METABOLIC PANEL(Performed 08/25/2023) * CBC W AUTO DIFFERENTIAL(Performed 08/25/2023) * GLUCOSE - POINT OF CARE(Performed 08/24/2023) * GLUCOSE - POINT OF CARE(Performed 08/24/2023) * GLUCOSE - POINT OF CARE(Performed 08/24/2023) * GLUCOSE - POINT OF CARE(Performed 08/24/2023) * GLUCOSE - POINT OF CARE(Performed 08/24/2023) * PT-INR [facility](Performed 08/24/2023) * PHOSPHORUS BLOOD(Performed 08/24/2023) * MAGNESIUM BLOOD(Performed 08/24/2023) * COMPREHENSIVE METABOLIC PANEL(Performed 08/24/2023) * CBC W AUTO DIFFERENTIAL(Performed 08/24/2023) * XR CHEST 1VW PORTABLE(Performed 08/24/2023) Performed for S/P thoracentesis * GLUCOSE - POINT OF CARE(Performed 08/23/2023) * GLUCOSE - POINT OF CARE(Performed 08/23/2023) * GLUCOSE - POINT OF CARE(Performed 08/23/2023) * GLUCOSE - POINT OF CARE(Performed 08/23/2023) * GLUCOSE - POINT OF CARE(Performed 08/23/2023) * PT-INR [facility](Performed 08/23/2023) * PHOSPHORUS BLOOD(Performed 08/23/2023) * MAGNESIUM BLOOD(Performed 08/23/2023) * COMPREHENSIVE METABOLIC PANEL(Performed 08/23/2023) * CBC W AUTO DIFFERENTIAL(Performed 08/23/2023) * PREPARE RBC LEUKOREDUCED UNIT(Performed 08/23/2023) * PREPARE RBC LEUKOREDUCED UNIT(Performed 08/23/2023) * GLUCOSE - POINT OF CARE(Performed 08/22/2023) * CULTURE BLOOD(Performed 08/22/2023) * GLUCOSE - POINT OF CARE(Performed 08/22/2023) * ECHO COMPLETE W CONTRAST(Performed 08/22/2023) Performed for Shock (HCC) * GLUCOSE - POINT OF CARE(Performed 08/22/2023) * PT-INR [facility](Performed 08/22/2023) * PHOSPHORUS BLOOD(Performed 08/22/2023) * MAGNESIUM BLOOD(Performed 08/22/2023) * COMPREHENSIVE METABOLIC PANEL(Performed 08/22/2023) * CBC W AUTO DIFFERENTIAL(Performed 08/22/2023) * GLUCOSE - POINT OF CARE(Performed 08/21/2023) * LACTIC ACID BLOOD(Performed 08/21/2023) * GLUCOSE - POINT OF CARE(Performed 08/21/2023) * LACTIC ACID BLOOD(Performed 08/21/2023) * LDH BLOOD(Performed 08/21/2023) * GLUCOSE - POINT OF CARE(Performed 08/21/2023) * CBC W/O DIFFERENTIAL(Performed 08/21/2023) * PT-INR [facility](Performed 08/21/2023) * PHOSPHORUS BLOOD(Performed 08/21/2023) * MAGNESIUM BLOOD(Performed 08/21/2023) * COMPREHENSIVE METABOLIC PANEL(Performed 08/21/2023) * CBC W AUTO DIFFERENTIAL(Performed 08/21/2023) * GLUCOSE - POINT OF CARE(Performed 08/20/2023) * CBC W/O DIFFERENTIAL(Performed 08/20/2023) * GLUCOSE - POINT OF CARE(Performed 08/20/2023) * XR CHEST 1VW PORTABLE(Performed 08/20/2023) Performed for S/P thoracentesis * GLUCOSE - POINT OF CARE(Performed 08/20/2023) * CYTOLOGY NON-UNIT MANAGER RN PANEL ([facility])(Performed 08/20/2023) Performed for Pleural effusion * DIFFERENTIAL MANUAL FLUID(Performed 08/20/2023) * PH BODY FLUID ([facility] ONLY)(Performed 08/20/2023) * PROTEIN BODY FLUID(Performed 08/20/2023) * LDH BODY FLUID(Performed 08/20/2023) * GLUCOSE BODY FLUID(Performed 08/20/2023) * CELL COUNT W DIFFERENTIAL FLUID(Performed 08/20/2023) * CULTURE AFB+SMEAR(Performed 08/20/2023) * CULTURE FLUID+GRAM STAIN(Performed 08/20/2023) * CULTURE ANAEROBE(Performed 08/20/2023) * CBC W/O DIFFERENTIAL(Performed 08/20/2023) * GLUCOSE - POINT OF CARE(Performed 08/20/2023) * XR CHEST 1VW PORTABLE(Performed 08/20/2023) Performed for Hypercarbia * PT-INR [facility](Performed 08/20/2023) * PHOSPHORUS BLOOD(Performed 08/20/2023) * MAGNESIUM BLOOD(Performed 08/20/2023) * COMPREHENSIVE METABOLIC PANEL(Performed 08/20/2023) * CBC W AUTO DIFFERENTIAL(Performed 08/20/2023) * CBC W/O DIFFERENTIAL(Performed 08/19/2023) * BLOOD GASES ART + COOX PANEL(Performed 08/19/2023) Performed for Left foot infection * GLUCOSE - POINT OF CARE(Performed 08/19/2023) * BLOOD GASES ART + COOX PANEL(Performed 08/19/2023) Performed for Left foot infection * PHOSPHORUS BLOOD(Performed 08/19/2023) * MAGNESIUM BLOOD(Performed 08/19/2023) * COMPREHENSIVE METABOLIC PANEL(Performed 08/19/2023) * CBC W AUTO DIFFERENTIAL(Performed 08/19/2023) * LACTIC ACID BLOOD(Performed 08/19/2023) Performed for Left foot infection * TRANSFUSE RED BLOOD CELL LEUKOREDUCED UNIT(S)(Performed 08/19/2023) * ARTERIAL LINE NOTE(Performed 08/19/2023) * BLOOD GAS+COOX+LYTES+METAB VENOUS POCT(Performed 08/19/2023) * GLUCOSE - POINT OF CARE(Performed 08/19/2023) * CBC W/O DIFFERENTIAL(Performed 08/19/2023) Performed for Necrotizing fasciitis (HCC) * BLOOD GAS ART+LYTES+METAB+COOX POC NOTIF(Performed 08/19/2023) Performed for Necrotizing fasciitis (HCC) * PREPARE RBC LEUKOREDUCED UNIT(Performed 08/19/2023) * PERIPHERAL IV NOTE(Performed 08/19/2023) * TRANSFUSE RED BLOOD CELL LEUKOREDUCED UNIT(S)(Performed 08/19/2023) * PATHOLOGY TISSUE(Performed 08/19/2023) Performed for Left foot infection * CA AMPUTATE THIGH,THRU FEMUR(Performed 08/19/2023) Performed for Left foot infection * ENDOTRACHEAL TUBE NOTE(Performed 08/19/2023) * GLUCOSE - POINT OF CARE(Performed 08/19/2023) * TYPE + SCREEN PANEL(Performed 08/19/2023) Performed for Necrotizing fasciitis (HCC) * CBC W AUTO DIFFERENTIAL(Performed 08/19/2023) * RENAL FUNCTION PANEL(Performed 08/19/2023) * PT-INR [facility](Performed 08/19/2023) * GLUCOSE - POINT OF CARE(Performed 08/18/2023) * GLUCOSE - POINT OF CARE(Performed 08/18/2023) * GLUCOSE - POINT OF CARE(Performed 08/18/2023) * GLUCOSE - POINT OF CARE(Performed 08/18/2023) * GLUCOSE - POINT OF CARE(Performed 08/18/2023) * CBC W/O DIFFERENTIAL(Performed 08/18/2023) * BASIC METABOLIC PANEL (CALCIUM TOTAL)(Performed 08/18/2023) * IRON + TRANSFERRIN PANEL(Performed 08/18/2023) * FOLATE(Performed 08/18/2023) * VITAMIN B12(Performed 08/18/2023) * GLUCOSE - POINT OF CARE(Performed 08/17/2023) * GLUCOSE - POINT OF CARE(Performed 08/17/2023) * GLUCOSE - POINT OF CARE(Performed 08/17/2023) * PT EVAL AND TREAT(Performed 08/17/2023) * OT EVAL AND TREAT(Performed 08/17/2023) * GLUCOSE - POINT OF CARE(Performed 08/17/2023) * COMPREHENSIVE METABOLIC PANEL(Performed 08/17/2023) * CBC W AUTO DIFFERENTIAL(Performed 08/17/2023) * LIPID PROFILE(Performed 08/17/2023) * MAGNESIUM BLOOD(Performed 08/17/2023) * GLUCOSE - POINT OF CARE(Performed 08/16/2023) * GLUCOSE - POINT OF CARE(Performed 08/16/2023) * GLUCOSE - POINT OF CARE(Performed 08/16/2023) * GLUCOSE - POINT OF CARE(Performed 08/16/2023) * GLUCOSE - POINT OF CARE(Performed 08/16/2023) * GLUCOSE - POINT OF CARE(Performed 08/16/2023) * BLOOD TYPE VERIFICATION(Performed 08/16/2023) * HEMOGLOBIN A1C(Performed 08/16/2023) * PHOSPHORUS BLOOD(Performed 08/16/2023) * MAGNESIUM BLOOD(Performed 08/16/2023) * CBC W/O DIFFERENTIAL(Performed 08/16/2023) * BASIC METABOLIC PANEL (CALCIUM TOTAL)(Performed 08/16/2023) * GLUCOSE - POINT OF CARE(Performed 08/15/2023) * GLUCOSE - POINT OF CARE(Performed 08/15/2023) * GLUCOSE - POINT OF CARE(Performed 08/15/2023) * GLUCOSE - POINT OF CARE(Performed 08/15/2023) * PATHOLOGY TISSUE(Performed 08/15/2023) Performed for Infection * CULTURE WOUND+GRAM STAIN(Performed 08/15/2023) * CULTURE FUNGUS OTHER+FUNGUS SMEAR(Performed 08/15/2023) * CULTURE ANAEROBE(Performed 08/15/2023) * CULTURE FUNGUS OTHER+FUNGUS SMEAR(Performed 08/15/2023) * CULTURE ANAEROBE(Performed 08/15/2023) * CULTURE WOUND+GRAM STAIN(Performed 08/15/2023) * CA AMPUTATE LOWER LEG AT KNEE(Performed 08/15/2023) Performed for Infection * PERIPHERAL BLOCK(Performed 08/15/2023) * PERIPHERAL BLOCK(Performed 08/15/2023) * CULTURE BLOOD(Performed 08/15/2023) * TYPE + SCREEN PANEL(Performed 08/15/2023) * BASIC METABOLIC PANEL (CALCIUM TOTAL)(Performed 08/15/2023) * CBC W/O DIFFERENTIAL(Performed 08/15/2023) * C-REACTIVE PROTEIN(Performed 08/15/2023) * ERYTHROCYTE SEDIMENTATION RATE(Performed 08/15/2023) * TROPONIN-I HIGH SENSITIVE BASELINE + 1HR(Performed 08/15/2023) * LACTIC ACID BLOOD REFLEX TO REPEAT(Performed 08/15/2023) Results * VAS ARTERIAL ANKLE ARM INDEX (02/08/2024 9:50 AM CDT) Anatomical Region Laterality Modality Ankle / Foot, Upper Extremity In travascular Ultrasound 02/08/2024 9:28 AM CDT Narrative Procedure Note Gregg Cobb MD - 02/09/2024 Danika Hays MD VASCULAR LAB ORDERA BLES * PROC WOUND DEBRIDEMENT </> 20CM (02/01/2024 11:47 AM CDT) Narrative Danika Hays MD - 02/01/2024 11:47 AM CDT Danika Hays MD ? 02/01/2024 11:50 AM [facility] PROCEDURE NOTE Procedure: right foot heel excisional debridement removing skin and soft tissue Permit: verbal consent Indication: heel wound with purulence and fibrinous exudate Anaesthesia: none needed Physicians: danika hays md; justus cerda md Description: sharp excisional debridement of right heel with scissors with curettage to healthy-appearing tissue with pinpoint bleeding. ?? Skin and subcutaneous tissue was removed using forceps and scissors. painted with betadine and dry dressing applied. ??wound dimensions 3x2x0.1cm. Complications: none apparent EBL: 1cc Disposition: back to facility Justus Cerda MD 02/01/2024 11:15 AM I was present for the procedure. Danika Hays MD PROCEDURE/MINOR COURTNEY GICAL ORDERABLES * (ABNORMAL) CULTURE WOUND+GRAM STAIN (02/01/2024 11:10 AM CDT) Only the most recent of3 resultswithin the time period is included. Culture Heavy Pseudomonas aeruginosa(A) KARY 02/05/2024 5:44 AM CDT [facility] Culture Heavy Enterococcus faecalis(A) KARY 02/05/2024 5:44 AM CDT [facility] Culture Heavy normal skin chaparrita KARY 02/05/2024 5:44 AM CDT [facility] Gram Stain Moderate Polymorphonuclear cells 02/05/2024 5:44 AM CDT [facility] Gram Stain Heavy Gram-negative bacilli 02/05/2024 5:44 AM CDT [facility] Gram Stain Heavy Gram-positive cocci 02/05/2024 5:44 AM CDT [facility] Microbiology ENTIRE FOOT / Unknown Collection / Unknown 02/01/2024 11:10 AM CDT 02/01/2024 12:14 PM CDT Narrative Organism Antibiotic Method Susceptibility Pseudomonas aeruginosa Cefepime KARY 2 ug/mL: Susceptible Pseudomonas aeruginosa Ceftazidime KARY 4 ug/mL: Susceptible Pseudomonas aeruginosa Ciprofloxacin KARY <=0.25 ug/mL: Susceptible Pseudomonas aeruginosa Gentamicin KARY Resistant Pseudomonas aeruginosa Meropenem KARY <=0.25 ug/mL: Susceptible Pseudomonas aeruginosa Piperacillin-tazobactam KARY 8 ug/mL: Susceptible Pseudomonas aeruginosa Tobramycin KARY <=1 ug/mL: Susceptible Enterococcus faecalis Ampicillin KARY <=2 ug/mL: Susceptible Enterococcus faecalis Vancomycin KARY 1 ug/mL: Susceptible Comment: Streptomycin Synergy susceptible predicts synergy between ampicillin, penicillin, or vancomycin plus streptomycin when isolates are susceptible to these agents. Combination therapy with ampicillin, penicillin or vancomycin(for susceptible strains) plus an aminoglycoside is usually indicated for serious enterococcal infections such as endocarditis, UNLESS high-level resistance to both gentamicin and streptomycin is documented. Gentamicin Synergy susceptible predicts synergy between ampicillin, penicillin, or vancomycin plus gentamicin when isolates are susceptible to these agents. Combination therapy with ampicillin, penicillin, or vancomycin (for susceptible strains) plus an aminoglycoside is usually indicated for serious enterococcal infections such as endocarditis UNLESS high-level resistance to both gentamicin and streptomycin is documented. Danika Hays MD LAB - MICROBIOLOGY ORDERABLES [facility] [address] [place], [address] [phone] * APHERESIS/TRANSFUSION ORDER (08/26/2023 2:09 PM CDT) Narrative 08/26/2023 2:09 PM CDT Ordered by an unspecified provider. Scanned Document NURSING - VITAL SIGN S AND ASSESSMENT * (ABNORMAL) GLUCOSE - POINT OF CARE (08/25/2023 11:22 AM CDT) Only the most recent of44 resultswithin the time period is included. Glucose WB/POC 205(H) 70 - 115 mg/dL 08/25/2023 11:26 AM CDT [facility] Specimen Type Cap Fingerstick 2023 11:26 AM CDT [facility] Blood BLOOD SPECIMEN / Unknown 08/25/2023 11:22 AM CDT 08/25/2023 11:25 AM CDT Ramu Flynn MD LAB - POINT OF CARE ORDERABLES [address] [address], [place] [phone] * PT-INR [facility] (08/25/2023 3:54 AM CDT) Only the most recent of7 resultswithin the time period is included. Pathologist [facility] PT 14.1 12.1 - 14.8 Seconds 08/25/2023 5:28 AM CDT [facility] INR 1.1 See Comment 08/25/2023 5:28 AM CDT [facility] Comment:The suggested therap eutic range for standard coumadin (warfarin) therapy is an INR of 2.0-3.0. For high-risk patients (Mechanical Mitral Valve Prosthesis, etc.), the suggested prophylactic therapeutic range is an INR of 2.5-3.5. Blood BLOOD SPECIMEN / Unknown Lab Venipuncture / Unknown 08/25/2023 3:54 AM CDT 08/25/2023 4:56 AM CDT Jyoti Fung DO LAB - COAGULATION OR DERABLES [address] [address], [place] [phone] * (ABNORMAL) CBC W AUTO DIFFERENTIAL (08/25/2023 3:54 AM CDT) Only the most recent of9 resultswithin the time period is included. WBC 11.5(H) 4.0 - 10.7 x10E9/L 08/25/2023 5:06 AM [facility] RBC Count 2.60(L) 4.30 - 5.80 x10E12/L 08/25/2023 5:06 AM [facility] Hemoglobin 7.4(L) 13.3 - 17.5 g/dL 08/25/2023 5:06 AM [facility] Hematocrit 23.6(L) 38.7 - 51.1 % 08/25/2023 5:06 AM [facility] MCV 90.8 80.0 - 98.0 fL 08/25/2023 5:06 AM [facility] MCH 28.5 26.7 - 33.6 pg 08/25/2023 5:06 AM [facility] MCHC 31.4(L) 31.7 - 36.3 g/dL 08/25/2023 5:06 AM [facility] RDW-CV 15.9(H) 11.3 - 14.8 % 08/25/2023 5:06 AM [facility] Platelet Count 509(H) 150 - 420 x10E9/L 08/25/2023 5:06 AM [facility] MPV 9.7 7.8 - 11.4 fL 08/25/2023 5:06 AM [facility] Neutrophil % 83.6(H) 41.0 - 74.0 % 08/25/2023 5:06 AM [facility] Lymphocyte % 8.2(L) 17.0 - 47.0 % 08/25/2023 5:06 AM [facility] Monocyte % 6.3 3.0 - 11.0 % 08/25/2023 5:06 AM [facility] Eosinophil % 1.1 0.0 - 7.0 % 08/25/2023 5:06 AM [facility] Basophil % 0.4 0.0 - 1.6 % 08/25/2023 5:06 AM [facility] Immature Granulocytes % 0.4 0.0 - 1.0 % 08/25/2023 5:06 AM [facility] Neutrophil Absolute 9.62(H) 1.60 - 7.50 x10E9/L 08/25/2023 5:06 AM [facility] Lymphocyte Absolute 0.95(L) 1.00 - 4.40 x10E9/L 08/25/2023 5:06 AM [facility] Monocyte Absolute 0.73 0.15 - 1.00 x10E9/L 08/25/2023 5:06 AM [facility] Eosinophil Absolute 0.13 0.00 - 0.60 x10E9/L 08/25/2023 5:06 AM [facility] Basophil Absolute 0.05 0.00 - 0.13 x10E9/L 08/25/2023 5:06 AM [facility] Blood BLOOD SPECIMEN / Unknown Lab Venipuncture / Unknown 08/25/2023 3:54 AM CDT 08/25/2023 4:56 AM T Jyoti Fung DO LAB - HEMATOLOGY ORD ERABLES [facility] [address] [place] [address], [place] [phone] * (ABNORMAL) COMPREHENSIVE METABOLIC PANEL (08/25/2023 3:54 AM CDT) Only the most recent of8 resultswithin the time period is included. BUN 8 7 - 26 mg/dL 08/25/2023 5:33 AM [facility] Creatinine 0.49(L) 0.71 - 1.16 mg/dL 08/25/2023 5:33 AM [facility] Sodium 136 136 - 145 mmol/L 08/25/2023 5:33 AM [facility] Potassium 3.9 3.5 - 4.5 mmol/L 08/25/2023 5:33 AM [facility] Chloride 101 98 - 107 mmol/L 08/25/2023 5:33 AM [facility] CO2 29 22 - 29 mmol/L 08/25/2023 5:33 AM [facility] Glucose 54(L) 70 - 115 mg/dL 08/25/2023 5:33 AM [facility] Calcium 8.5 8.4 - 10.2 mg/dL 08/25/2023 5:33 AM [facility] Protein Total 5.6(L) 6.0 - 8.3 g/dL 08/25/2023 5:33 AM [facility] Albumin 2.0(L) 3.4 - 5.0 g/dL 08/25/2023 5:33 AM [facility] Bilirubin Total 0.3 0.2 - 1.2 mg/dL 08/25/2023 5:33 AM [facility] Alkaline Phosphatase 188(H) 40 - 150 U/L 08/25/2023 5:33 AM [facility] ALT 10 5 - 55 U/L 08/25/2023 5:33 AM [facility] AST 23 5 - 34 U/L 08/25/2023 5:33 AM [facility] Anion Gap 6 6 - 16 08/25/2023 5:33 AM [facility] BUN/Creatinine Ratio 16 7 - 23 08/25/2023 5:33 AM [facility] Osmolality Calculated 278 275 - 295 mOsm/kg 08/25/2023 5:33 AM [facility] Albumin/Globulin Ratio 0.6(L) 1.1 - 2.3 08/25/2023 5:33 AM [facility] eGFR by CKD-EPI >90 >=90 mL/min/1.7 3 m2 08/25/2023 5:33 AM [facility] Blood BLOOD SPECIMEN / Unknown Lab Venipuncture / Unknown 08/25/2023 3:54 AM CDT 08/25/2023 4:56 AM T Jyoti Fung DO LAB - CHEMISTRY JEANNEE MAIRA [facility] [address] [place] [address], [place] [phone] * (ABNORMAL) PHOSPHORUS BLOOD (08/25/2023 3:54 AM CDT) Only the most recent of8 resultswithin the time period is included. Phosphorus 2.4(L) 2.8 - 5.1 mg/dL 08/25/2023 5:33 AM CDT [facility] Blood BLOOD SPECIMEN / Unknown Lab Venipuncture / Unknown 08/25/2023 3:54 AM CDT 08/25/2023 4:56 AM CDT Jyoti Fung LAB - CHEMISTRY SHAKILA RAO Performing Organization Address [facility]/ZIP Co de Phone Number [facility] [address] [place] [id number], [place] [phone] * MAGNESIUM BLOOD (08/25/2023 3:54 AM CDT) Only the most recent of9 resultswithin the time period is included. Magnesium 2.2 1.6 - 2.6 mg/dL 08/25/2023 5:33 AM CDT [facility] Blood BLOOD SPECIMEN / Unknown Lab Venipuncture / Unknown 08/25/2023 3:54 AM CDT 08/25/2023 4:56 AM CDT Jyoti Fung LAB - CHEMISTRY SHAKILA RAO Performing Organization Address [facility] Co de Phone Number [address] [address], [place] [phone] * XR CHEST 1VW PORTABLE (08/24/2023 4:55 AM CDT) Only the most recent of3 resultswithin the time period is included. Anatomical Region Laterality Modality Chest Radiographic Saray ging 08/24/2023 7:56 AM CDT Narrative 08/25/2023 12:25 AM CDT PROCEDURE: ??XR CHEST 1VW PORTABLE, DATE/TIME OF EXAM: ??08/24/2023 4:55 AM, LOCATION ??[facility] INDICATION: [id number]: S/P thoracentesis ADDITIONAL CLINICAL INFORMATION: Ordering Provider Reason For Exam: ??Evaluate for pleural effusion Technologist Note: Additional: COMPARISON: Chest radiograph from 08/20/2023. FINDINGS/IMPRESSION: *Left upper chest wall cardiac device with leads terminating in the right atrium, right ventricle, coronary sinus. Redemonstration of bibasilar atelectasis and/or airspace disease. Small right pleural effusion is increased. Small left pleural effusion is grossly unchanged. There is associated atelectasis at the lung bases. Retrocardiac opacities may be due to atelectasis or developing airspace disease. The cardiomediastinal silhouette is stable. Degenerative changes are noted in the thoracic spine and shoulders. Aortic calcifications persist. > Dictated by Igor Florian MD I, Tarun Cueto MD have personally reviewed and interpreted this examination/study. > Interpreting Provider: Tarun Cueto MD on 08/25/2023 12:25 AM Procedure Note Tarun Cueto MD - 08/25/2023 PROCEDURE: XR CHEST 1VW PORTABLE, DATE/TIME OF EXAM: 08/24/2023 4:55 AM, LOCATION [facility] INDICATION: [id number]: S/P thoracentesis ADDITIONAL CLINICAL INFORMATION: Ordering Provider Reason For Exam: Evaluate for pleural effusion Technologist Note: Additional: COMPARISON: Chest radiograph from 08/20/2023. FINDINGS/IMPRESSION: *Left upper chest wall cardiac device with leads terminating in theright atrium, right ventricle, coronary sinus. Redemonstration of bibasilar atelectasis and/or airspace disease. Small right pleural effusion is increased. Small left pleural effusion isgrossly unchanged. There is associated atelectasis at the lung bases.Retrocardiac opacities may be due to atelectasis or developing airspace disease. The cardiomediastinal silhouette is stable. Degenerative changes arenoted in the thoracic spine and shoulders. Aortic calcifications persist. > Dictated by Igor Florian MD I, Tarun Cueto MD have personally reviewed and interpreted this examination/study. > Interpreting Provider: Tarun Cueto MD on 08/25/2023 12:25 AM Taylor Marte MD DIAGNOSTIC IMAGING O RDERABLES * PREPARE (CROSSMATCH) RBC UNIT(S), 2 Units (08/23/2023 1:17 AM CDT) Only the most recent of3 resultswithin the time period is included. Unit Description N/A [facility] BLOOD BANK LAB Blood Bank BLOOD SPECIMEN / Unknown 08/19/2023 2:00 AM CDT Franco Flynn MD LAB - BLOOD BANK ORD ERABLES [facility] [address] [place] [address], [place] [phone] * CULTURE BLOOD (08/22/2023 11:53 AM CDT) Only the most recent of2 resultswithin the time period is included. Pathologist [facility] Culture No growth day 5 KARY 08/27/2023 2:31 PM CDT [facility] MICROBIOLOGY Blood PERIPHERAL BLOOD / Unknown Venipuncture / Unknown 08/22/2023 11:53 AM CDT 08/22/2023 11:57 AM CDT Gregg Stock MD LAB - MICROBIOLOGY O RDERABLES [facility] MICROBIOLOG[facility] [address] [place] [address], [place] [phone] * ECHO COMPLETE W CONTRAST (08/22/2023 9:59 AM CDT) BSA [id number] m2 [facility]SM CV FUJI PACS LV biplane EF 27 52 - 72 % [facility] CV FUJI PACS LV A2C EF 27 48 - 76 % SSM CV FUJ I PACS LV A4C EF 25 46 - 74 % SSM CV FUJ I PACS LV stroke vol BP 50.7 mL SSM CV FUJI PACS LV stroke vol BP index 28.1 mL/m2 SSM CV FUJI PACS LVOT stroke vol 81.14 mL SSM CV FUJI PACS LVOT stroke vol index 44.98 mL/m2 SSM CV FUJI PACS LV stroke vol 2D teich 67.68 ml SSM CV FUJI PACS LV Stroke Index 2D Teich 37.52 mL/m2 SSM CV FUJI PACS LV stroke vol index A4C MOD 52.892 ml/m2 SSM CV FUJI PACS LVIDd 5.91 4.2 - 5.8 cm SSM CV FUJI PACS LVIDs 4.78 2.5 - 4.0 cm SSM CV FUJI PACS IVSd 2D 0.702 0.6 - 1 cm SSM CV FUJI PACS LVPWd 0.94 0.6 - 1 cm SSM CV FUJI PACS Fractional Shortening 2D 16 28 - 44 % SSM CV FUJI PACS LV ESV BP 137.644 21 - 61 mL SSM CV FUJI PACS LV ESV index BP 76.3 11 - 31 mL/m2 SSM CV FUJI PACS LV ESV A2C 161.63 15 - 75 mL SSM CV FUJI PACS LV ESV index A2C 89.60 9 - 37 mL/m2 SSM CV FUJI PACS LV EDV BP 188.343 62 - 150 mL SSM CV FUJI PACS LV ESV A4C 117.132 22 - 78 mL SSM CV FUJI PACS LV ESV index A4C 64.93 12 - 40 mL/m2 SSM CV FUJI PACS LV EDV index BP 104.4 34 - 74 mL/m2 SSM CV FUJI PACS LV EDV A2C 159.765 59 - 175 mL SSM CV FUJI PACS LV EDV index A2C 88.57 31 - 87 mL/m2 SSM CV FUJI PACS LV EDV A4C 214.522 mL SSM CV FU JI PACS LV ESV 2D 106.489 21 - 61 mL SSM CV FUJI PACS LV EDV index A4C 118.93 37 - 93 mL/m2 SSM CV FUJI PACS LV ESV index 2D 59.03 11 - 31 mL/m2 SSM CV FUJI PACS LV EDV 2D 174.169 62 - 150 mL SSM CV FUJI PACS LV EDV index 2D 96.55 34 - 74 mL/m2 SSM CV FUJI PACS LVOT diam 2.0 cm SSM CV FUJ I PACS LVOT area 3.27 cm2 SSM CV FUJ I PACS LV RWT 0.317 SSM CV FUJ I PACS LV Da Silva A2C 9.557 cm SSM CV F UJI PACS LV Da Silva A4C 9.922 cm SSM CV F UJI PACS IVS/LVPW 0.748 SSM CV FUJ I PACS LV mass 2D 193.1104 96 - 200 g SSM CV FUJI PACS LV mass index 2D 107.06 50 - 102 g/m2 SSM CV FUJI PACS LA vol BP 82.711 mL SSM CV FUJ I PACS TR pk carlton 246.2 cm/s SSM CV FUJ I PACS LVOT pk carlton 1.16 m/s SSM CV F UJI PACS LVOT mn carlton 0.76 m/s SSM CV F UJI PACS LVOT mn grad 2.8 mmHg SSM CV FUJI PACS LVOT Cardiac Output 6.636 l/min SSM CV FUJI PACS LVOT Cardiac Index 3.68 l/min/m2 SSM CV FUJI PACS LA vol index 45.9 16 - 34 mL/m2 SSM CV FUJI PACS LA size 3.792 3.0 - 4.0 cm SSM CV FUJI PACS LA vol BP A-L 93.486 mL [facility].4 cm [facility] CV [facility] I PACS RVOT VTI 11.777 cm SSM CV [facility] I PACS TV S' carlton 16.582 cm/s SSM CV [facility] I PACS TAPSE 1.643 1.7 cm SSM CV [facility] I PACS RVOT pk carlton 0.47 m/s SSM CV F UJI PACS RA area 14.636 cm2 SSM CV [facility] I PACS AV mn grad 4 mmHg SSM CV FU JI PACS AV pk grad 6 mmHg SSM CV FU JI PACS AV mn carlton 0.96 m/s SSM CV [facility] I PACS AV pk carlton 1.26 m/s SSM CV [facility] I PACS AV VTI 29.196 cm SSM CV [facility] I PACS LVOT pk grad 5.42 mmHg SSM CV FUJI PACS LVOT VTI 24.854 cm SSM CV FUJ I PACS AV area cont VTI 2.8 cm2 SSM CV FUJI PACS AV area pk carlton 3.0 cm2 [facility] Doppler carlton index pk carlton 0.923 [facility] Dimensionless Index 0.851 SSM CV FUJI PACS MR VTI 178.344 cm SSM CV FUJ I PACS MV pk carlton regurg 410.901 cm/s SSM CV FUJI PACS TR VTI 81.3 cm SSM CV FUJ I PACS TR pk grad 24 mmHg SSM CV FU JI PACS RVOT mn grad 1 mmHg SSM CV FUJI PACS RVOT pk grad 1 mmHg SSM CV FUJI PACS PV mn grad 1 mmHg SSM CV FU JI PACS PV pk carlton 59.287 cm/s SSM CV FUJ I PACS PV pk grad 1 mmHg SSM CV FU JI PACS PV VTI 15.708 cm SSM CV FUJ I PACS PV mn carlton 47.034 cm/s SSM CV FUJ I PACS Ascending aorta 3.49 cm SSM CV FUJI PACS IVC size 1.0 cm SSM CV FUJ I PACS LA ESV A4C MOD Index 32 ml/m2 SSM CV FUJI PACS LA ESV A2C MOD Index 52 ml/m2 SSM CV FUJI PACS [id number] 8.793 cm SSM CV FUJ I PACS [id number] 8.758 cm SSM CV FUJ I PACS Prox Asc Ao Diameter Index 1.936 cm SSM CV FUJI PACS LVIDs index 2.65 1.3 - 2.1 cm/m2 SSM CV FUJI PACS LV LVIDd index 3.28 2.2 - 3.0 cm/m2 SSM CV FUJI PACS Sinus of Valsalva 3.10 cm SS M CV FUJI PACS ST junction 2.9 cm SSM CV F UJI PACS Sinus of valsalva index 1.72 cm/m2 SSM CV FUJI PACS ST junction index 1.61 cm/m2 SS M CV FUJI PACS Aortic annulus 3.5 cm SSM C V FUJI PACS Est RA pressure 3.0 mmHg SSM CV FUJI PACS RVSP 27.0 mmHg SSM CV FUJ I PACS RAP 3.0 mmHg SSM CV FUJ I PACS MV RVol cont eq 216.135 mL SSM CV FUJI PACS MV RVol PISA 2.087 mL SSM CV FUJI PACS MV RF PISA 1 % SSM CV FU JI PACS MV EROA PISA 0.01 cm2 SSM CV FUJI PACS MV VC width 0.44 cm SSM CV F UJI PACS MR PISA radius 1.111 cm SSM C V FUJI PACS MV Nyquist carlton 0.01 m/s SSM C V FUJI PACS MV VTI AT ANNULUS PEAK VELOCITY 131.878 cm/s SSM CV FUJI PACS MV VTI AT ANNULUS PEAK GRADIENT 6.957 mmHg SSM CV FUJI PACS MV VTI AT ANNULUS MEAN VELOCITY 39.075 cm/s SSM CV FUJI PACS MV VTI AT ANNULUS MEAN GRADIENT 1.16 mmHg SSM CV FUJI PACS MV VTI AT ANNULUS EJECTION TIME 0.703 s SSM CV FUJI PACS MV regurgitant SV 1 297.27 cm3 SSM CV FUJI PACS AV Rvol cont eq -216.14 mL SSM CV FUJI PACS MV annulus diameter 3.7 cm SSM CV FUJI PACS Anatomical Region Laterality Modality Ultrasound Narrative 08/22/2023 6:11 PM CDT ?Left??Ventricle: Left ventricle is moderately dilated. Normal wall thickness. Severely reduced systolic function. EF by 2D Royal biplane is 27%. Severe global hypokinesis present. ?Right??Ventricle: Right ventricle size is normal. ?Left??Atrium: Left atrium is moderately dilated. Left atrium volume index is 45.9 mL/m2. ?Mitral??Valve: Valve structure is normal. Mild regurgitation with a centrally directed jet. ?Tricuspid??Valve: Valve structure is normal. Trace regurgitation. The pulmonary artery systolic pressure is normal (under 35 mmHg). Estimated RVSP is 27.0 mmHg. ?IVC/SVC: IVC diameter is less than or equal to 21 mm and decreases greater than 50% during inspiration; therefore the estimated right atrial pressure is normal (~3 mmHg). ?Pericardium: No pericardial effusion. Left Ventricle Left ventricle is moderately dilated. Normal wall thickness. Severely reduced systolic function. EF by 2D Royal biplane is 27%. Severe global hypokinesis present. Right Ventricle Right ventricle size is normal. Normal systolic function. Left Atrium Left atrium is moderately dilated. Left atrium volume index is 45.9 mL/m2. Right Atrium Right atrium size is normal. IVC/SVC IVC diameter is less than or equal to 21 mm and decreases greater than 50% during inspiration; therefore the estimated right atrial pressure is normal (~3 mmHg). Mitral Valve Valve structure is normal. Mild regurgitation with a centrally directed jet. No stenosis. Tricuspid Valve Valve structure is normal. Trace regurgitation. The pulmonary artery systolic pressure is normal (under 35 mmHg). Estimated RVSP is 27.0 mmHg. No stenosis. Aortic Valve Valve structure is trileaflet. Mildly thickened right leaflet. Trace regurgitation. No stenosis. Pulmonic Valve Valve structure is normal. No regurgitation. No stenosis. Ascending Aorta Normal sized annulus, sinus of Valsalva (aortic root) and ascending aorta. Sinus of Valsalva is 3.10 cm. Ascending Aorta is 3.49 cm. Sinotubular junction indexed to BSA is 1.61 cm/m2. Pericardium No pericardial effusion. Study Details Study quality was good. A complete 2D, color Doppler, spectral Doppler and M- mode echocardiogram was performed. The apical, parasternal and subcostal views were obtained. Definity ultrasound enhancing agent used. Patient exhibited sinus rhythm. Procedure Note Desmond Farrar MD - 08/22/2023 ? ? Left??Ventricle: Left ventricle is moderately dilated. Normal wallthickness. Severely reduced systolic function. EF by 2D Royal biplane is27%. Severe global hypokinesis present. ? ? Right??Ventricle: Right ventricle size is normal. ? ? Left??Atrium: Left atrium is moderately dilated. Left atrium volumeindex is 45.9 mL/m2. ? ? Mitral??Valve: Valve structure is normal. Mild regurgitation with acentrally directed jet. ? ? Tricuspid??Valve: Valve structure is normal. Trace regurgitation. Thepulmonary artery systolic pressure is normal (under 35 mmHg). EstimatedRVSP is 27.0 mmHg. ? ? IVC/SVC: IVC diameter is less than or equal to 21 mm and decreasesgreater than 50% during inspiration; therefore the estimated right atrialpressure is normal (~3 mmHg). ? ? Pericardium: No pericardial effusion. Jyoti Fung DO ECHO CUPID * LACTIC ACID BLOOD (08/21/2023 2:47 PM CDT) Only the most recent of3 resultswithin the time period is included. [facility] Lactic Acid-Stat 0.7 <=2.0 mmol/L 08/21/2023 3:12 PM CDT [facility] Blood BLOOD SPECIMEN / Unknown Venipuncture / Unknown 08/21/2023 2:47 PM CDT 08/21/2023 2:52 PM CDT Jyoti Fung LAB - CHEMISTRY ORDSilvio RAO [address] [address], [place] [phone] * LDH BLOOD (08/21/2023 11:17 AM CDT) [facility] LDH Total 153 125 - 243 Units/L 08/21/2023 11:53 AM CDT [facility] Blood BLOOD SPECIMEN / Unknown Venipuncture / Unknown 08/21/2023 11:17 AM CDT 08/21/2023 11:28 AM CDT Jyoti Fung LAB - CHEMISTRY ORINDASilvio RAO Performing Organization Address City/[facility]/ZIP Co de Phone Number [address] [address], [place] [phone] * (ABNORMAL) CBC W/O DIFFERENTIAL (08/21/2023 2:48 AM CDT) Only the most recent of8 resultswithin the time period is included. [facility] WBC 16.6(H) 4.0 - 10.7 x10E9/L 08/21/2023 3:07 AM [facility] RBC Count 2.56(L) 4.30 - 5.80 x10E12/L 08/21/2023 3:07 AM [facility] Hemoglobin 7.3(L) 13.3 - 17.5 g/dL 08/21/2023 3:07 AM [facility] Hematocrit 21.9(L) 38.7 - 51.1 % 08/21/2023 3:07 AM [facility] MCV 85.5 80.0 - 98.0 fL 08/21/2023 3:07 AM [facility] MCH 28.5 26.7 - 33.6 pg 08/21/2023 3:07 AM [facility] MCHC 33.3 31.7 - 36.3 g/dL 08/21/2023 3:07 AM [facility] RDW-CV 14.6 11.3 - 14.8 % 08/21/2023 3:07 AM [facility] Platelet Count 340 150 - 420 x10E9/L 08/21/2023 3:07 AM [facility] MPV 9.6 7.8 - 11.4 fL 08/21/2023 3:07 AM [facility] Blood BLOOD SPECIMEN / Unknown Venipuncture / Unknown 08/21/2023 2:48 AM CDT 08/21/2023 2:57 AM CDT Jyoti Fung DO LAB - HEMATOLOGY ORD ERABLES [address] [address], [place] [phone] * PROTEIN BODY FLUID (08/20/2023 11:48 AM CDT) [facility] Protein Fluid 1.5 Not Established For Fluids g/dL 08/20/2023 12:27 PM [facility] Comment:The analytical perfo rmance of this test has been independently validated by [facility]. A reference range has not been established. Comparison of this result with the concentration in blood, serum or plasma is recommended. Fluid PLEURAL FLUID / Unknown Collection / Unknown 08/20/2023 11:48 AM CDT 08/20/2023 11:57 AM CDT Jyoti [facility] LAB - BODY FLUID ORD ERABLES Performing Organization Address City/[facility]/ZIP Co de Phone Number [address] [address], [place] [phone] * PH BODY FLUID ([facility] ONLY) (08/20/2023 11:48 AM CDT) pH Fluid 7.35 Not Established for Fluids pH 08/20/2023 12:04 PM CDT [facility] Body Fluid Type Pleural Fluid 08/20/2023 12:04 PM CDT [facility] Fluid PLEURAL FLUID / Unknown Collection / Unknown 08/20/2023 11:48 AM CDT 08/20/2023 11:57 AM CDT [facility] LAB - BODY FLUID ORD ERABLES [address] [address], [place] [phone] * LDH BODY FLUID (08/20/2023 11:48 AM CDT) Pathologist [facility] LD Fluid 53 Not Established For Fluids Units/L 08/20/2023 12:27 PM CDT [facility] Comment:The analytical perfo rmance of this test has been independently validated by [facility]. A reference range has not been established. Comparison of this result with the concentration in blood, serum or plasma is recommended. Fluid PLEURAL FLUID / Unknown Collection / Unknown 08/20/2023 11:48 AM CDT 08/20/2023 11:57 AM CDT [facility] LAB - BODY FLUID ORD ERABLES [facility] [address] [place] [address], [place] [phone] * GLUCOSE BODY FLUID (08/20/2023 11:48 AM CDT) Glucose Fluid 121 Not Established For Fluids mg/dL 08/20/2023 12:27 PM CDT [facility] Comment:The analytical perfo rmance of this test has been independently validated by [facility]. A reference range has not been established. Comparison of this result with the concentration in blood, serum or plasma is recommended. Fluid PLEURAL FLUID / Unknown Collection / Unknown 08/20/2023 11:48 AM CDT 08/20/2023 11:57 AM CDT Jyoti Fung DO LAB - BODY FLUID ORD ERABLES Performing Organization Address [facility]/ZIP Co de Phone Number [facility] [address] [place] [address], [place] [phone] * CYTOLOGY NON-UNIT MANAGER RN PANEL (STL) (08/20/2023 11:48 AM CDT) Case Report Medical Cytology Report ? Case: [id number] ? Authorizing Provider: ??Jyoti Fung, ? Collected: ? 08/20/2023 11:48 AM ? Ordering Location: ? [facility] 4S ICU ? Received: ?08/22/2023 07:31 AM ? Pathologist: ? Shiva Pollack MD ? Specimen: ?Pleural Fluid ? 08/23/2023 2:08 PM CDT [facility] Specimen Adequacy Adequate cellularity for evaluation. 08/23/2023 2:08 PM CDT [facility] Final Diagnosis Pleural fluid, cytology: - Negative for malignant cells - Specimen consists of abundant chronic inflammatory cells, rare macrophages and rare mesothelial cells 08/23/2023 2:08 PM [facility] PATHOLOGY LAB Clinical History The patient is a 72 year old male with a past medical history of complete heart block s/p pacemaker/defibrillat or, systolic CHF, CAD, type 2 diabetes, LV apical thrombus (2019) who presented to an OSH with dizziness upon standing and was found to have a right foot wound concerning for necrotizing fasciitis and was transferred to [facility] for a higher level of care. Chest imaging showed pleural effusion. 08/23/2023 2:08 PM [facility] Gross Description 1 pap stained cytospin slide and 1 cell block from 50cc yellow fluid 08/23/2023 2:08 PM [facility] PATH[facility] LAB Pathologist Location at [facility] 08/23/2023 2:08 PM [facility] PATH[facility] Disclaimer The performance characteristics of all immunohistochemical and indirect immunofluorescence stains (if any) cited in this report were determined by the Histopathology Laboratory of [facility]. Some of these tests rely on the use of analyte-specific reagents and are subject to specific labeling requirements by the US Food and Drug Administration. Such tests were developed by the Histology Laboratory of [facility] and have not been cleared or approved by the FDA. The FDA has determined that such clearance and approval is not necessary. These tests are used for clinical purposes and should not be regarded as investigational or for research. This laboratory is certified under the Clinical Laboratory Improvement Amendments (CLIA) as qualified to perform high complexity clinical laboratory testing. This case has been personally reviewed and interpreted by the attending (teaching) pathologist. 08/23/2023 2:08 PM [facility] Embedded Images 08/23/2023 2:08 PM [facility] PATH[facility] LAB Pathology/Cytolo gy PLEURAL FLUID / Unknown Collection / Unknown 08/20/2023 11:48 AM CDT 08/22/2023 7:31 AM CDT Jyoti Fung DO LAB - PATHOLOGY/CYTO LOGY ORDERABLES [facility] PATHOLOGY LAB [address] [facility] [address] [phone] * DIFFERENTIAL MANUAL FLUID (08/20/2023 11:48 AM CDT) Fluid Source Pleural 08/20/2023 12:25 PM CDT [facility] Body Fluid Total Cell Count 200 x10E6/L 08/20/2023 12:25 PM CDT [facility] Neutrophils Fluid Percent 3 % 08/20/2023 12:25 PM CDT [facility] Lymphocytes Fluid Percent 95 % 08/20/2023 12:25 PM CDT [facility] Comment:Occasional reactive lymphocyte noted. Macrophages Fluid Percent 2 % 08/20/2023 12:25 PM CDT [facility] Fluid PLEURAL FLUID / Unknown Collection / Unknown 08/20/2023 11:48 AM CDT 08/20/2023 11:57 AM CDT Narrative [facility] - 08/20/2023 12:25 PM CDT No reference ranges established for body fluid differential cell counts. ??The test results must be integrated into the clinical context for interpretation. Jyoti Fung DO LAB - BODY FLUID ORD ERABLES Performing Organization Address [facility] Co de Phone Number [facility] [address] [place] [address], [place] [phone] * CULTURE FLUID+GRAM STAIN (08/20/2023 11:48 AM CDT) Culture No growth KARY 08/23/2023 3:21 PM CDT [facility]CROBI[facility] Gram Stain Rare Polymorphonuclear cells 08/23/2023 3:21 PM CDT [facility]CRO[facility] Gram Stain No organisms seen 024 3:21 PM CDT [facility]CRO[facility] Other PLEURAL FLUID / Unknown Collection / Unknown 08/20/2023 11:48 AM CDT 08/20/2023 11:57 AM CDT Jyoti Fung DO LAB - MICROBIOLOGY O RDERABLES Performing Organization Address City/[facility]/ZIP Co de Phone Number [facility]CRO[facility] [address] [place] [address], [place] [phone] * CULTURE AFB+SMEAR (08/20/2023 11:48 AM CDT) Culture No acid-fast bacillus isolated 10/03/2023 9:28 AM CDT [facility]CRO[facility] AFB Smear No acid-fast bacilli seen 10/03/2023 9:28 AM CDT [facility]CRO[facility] Microbiology PLEURAL FLUID / Unknown Collection / Unknown 08/20/2023 11:48 AM CDT 08/20/2023 11:57 AM CDT Jyoti Fung LAB - MICROBIOLOGY O RDADRIA [facility]CRO[facility] [address] [place] [address], [place] [phone] * CULTURE ANAEROBE (08/20/2023 11:48 AM CDT) Only the most recent of3 resultswithin the time period is included. Culture No anaerobic organisms isolated KARY 08/25/2023 12:22 PM CDT [facility]CRO[facility] Microbiology PLEURAL FLUID / Unknown Collection / Unknown 08/20/2023 11:48 AM CDT 08/20/2023 11:58 AM CDT Jyoti Fung DO LAB - MICROBIOLOGY O RDADRIA [facility]CRO[facility] [address] [place] [address], [place] [phone] * CELL COUNT W DIFFERENTIAL FLUID (08/20/2023 11:48 AM CDT) Fluid Source Pleural 08/20/2023 12:25 PM CDT [facility] Fluid Appearance CLEAR 08/20/2023 12:25 PM CDT [facility] Fluid Color YELLOW 08/20/2023 12:25 PM CDT [facility] Total Nucleated Cells Fluid 86 Reference Range Not Established x10E6/L 08/20/2023 12:25 PM CDT [facility] RBC Count Fluid <2,000 Reference Range Not Established x10E6/L 08/20/2023 12:25 PM [facility] Fluid PLEURAL FLUID / Unknown Collection / Unknown 08/20/2023 11:48 AM CDT 08/20/2023 11:57 AM CDT Narrative [facility] - 08/20/2023 12:25 PM CDT No reference ranges established for body fluid cell counts. Any reference ranges provided are derived from published literature. The test results must be integrated into the clinical context for interpretation. Jyoti Fung DO LAB - BODY FLUID ORD ERABLES [facility] [address] [place] [address], [place] [phone] * (ABNORMAL) BLOOD GASES ART + COOX PANEL (08/19/2023 8:27 PM CDT) Only the most recent of2 resultswithin the time period is included. pH Arterial 7.40 7.35 - 7.45 pH 08/19/2023 8:52 PM [facility] pO2 Arterial 81 80 - 100 mmHg 08/19/2023 8:52 PM [facility] pCO2 Arterial 45 35 - 45 mmHg 8:52 PM [facility] HCO3 Arterial 27.9 20.0 - 30.0 mmol/L 08/19/2023 8:52 PM [facility] BE Arterial 2.8(H) -2.0 - 2.0 mmol/L 08/19/2023 8:52 PM [facility] Oxyhemoglobin Arterial 96.3 % 08/19/2023 8:52 PM [facility] Dexoyhemoglobin (HHB) % <1.0 % 08/19/2023 8:52 PM [facility] Methemoglobin <0.8 0.0 - 2.0 % 08/19/2023 8:52 PM [facility] Carboxyhemoglobin 3.4(H) 0.0 - 2.0 % 2023 8:52 PM [facility] O2 Content Arterial 10.4 Interpret within clinical context ml/dL 08/19/2023 8:52 PM CDT [facility] Hemoglobin by COOX 7.6(L) 12.0 - 17.6 g/dL 08/19/2023 8:52 PM CDT [facility] O2 Saturation Arterial 100 90 - 100 % 08/19/2023 8:52 PM CDT [facility] FI O2 Arterial 21.0 % 08/19/2023 8:52 PM CDT [facility] Blood, arterial ARTERIAL BLOOD SPECIMEN / Unknown Arterial Puncture / Unknown 08/19/2023 8:27 PM CDT 08/19/2023 8:39 PM CDT Narrative [facility] - 08/19/2023 8:52 PM CDT Carboxyhemoglobin Normal Concentration: Non-smokers: 0-2%; Smokers: 0-9%; Toxic: >20% Jyoti Fung DO LAB - BLOOD GASES OR DERABLES Performing Organization Address [facility] Hospital/[facility] Co de Phone Number [facility] [address] [place] [phone], [place] [phone] * TRANSFUSE RED BLOOD CELL LEUKOREDUCED UNIT(S) (08/19/2023 3:02 PM CDT) Franco Flynn MD NURSING - BLOOD PROD TRANSFUSION * ARTERIAL LINE PERFORMABLE (08/19/2023 12:07 PM CDT) Narrative Juan Calderon DO - 08/19/2023 12:07 PM CDT Juan Calderon DO ? 08/19/2023 12:08 PM Arterial Line Placement Procedure Note Patient Location: OR. Procedure: Arterial Line ([id number]). Procedure Section ?? Indications: continuous blood pressure monitoring. Consent: informed consent was obtained for the procedure. Alternatives Discussed: ??alternative treatment Skin Prep: Chloraprep. Orientation: Right. Site: radial. Sterile Technique: cap, mask, sterile gloves and small sterile fenestrated drape. Gauge: 20. Seldinger Technique Used? ??Yes Number of Attempts: 1. Procedure Tolerance: tolerated well. Events: none. Staff Section ? Anesthesia Provider: Joaquina Cooney MD, Performed the procedure ? Provider #1: Juan Calderon DO, Performed the procedure. Additional Comments: Patient hypotensive on levo 0.1 in PACU, assisted in placing A line. Joaquina Cooney MD [facility] ORDERABLES * (ABNORMAL) BLOOD GAS+COOX+LYTES+METAB VENOUS POCT (08/19/2023 11:56 AM [facility]) pH Venous 7.26(L) 7.32 - 7.42 pH 08/19/2023 11:56 AM [facility] pO2 Venous 36 35 - 40 mmHg 08/19/2023 11:56 AM [facility] pCO2 Venous 58(H) 40 - 50 mmHg 08/19/2023 11:56 AM [facility] HCO3 Venous 26.0 20 - 30 mmol/L 08/19/2023 11:56 AM [facility] Base Excess Venous -1.2 -2.0 - 2.0 mmol/L 08/19/2023 11:56 AM [facility] Oxyhemoglobin Venous 57.7 % 06/2023 11:56 AM [facility] Deoxyhemoglobin (HHB) Venous % 39.9 % 08/19/2023 11:56 AM [facility] Methemoglobin <0.8 0.0 - 2.0 % 08/19/2023 11:56 AM [facility] Carboxyhemoglobin 2.1(H) 0.0 - 2.0 % 2023 11:56 AM [facility] Comment:Carboxyhemoglobin No rmal Concentration: Non-smokers: 0-2%; Smokers: 0- 9%; Toxic: >20% O2 Content Venous 5.8 Interpret within clinical context ml/dL 08/19/2023 11:56 AM [facility] Hemoglobin by COOX 7.1(L) 12.0 - 17.6 g/dL 08/19/2023 11:56 AM [facility] O2 Saturation Venous 59(L) >=70 % 06/2023 11:56 AM [facility] Sodium Whole Blood 134(L) 135 - 145 mmol/L 08/19/2023 11:56 AM T [facility] Potassium Whole Blood 4.0 3.5 - 5.5 mmol/L 08/19/2023 11:56 AM [facility] Chloride WB 100 78 - 107 mmol/L 08/19/2023 11:56 AM [facility] Calcium Ionized 1.24 mmol/L 11:56 AM T [facility] Ionized Calcium pH Adjusted 1.17(L) 1.19 - 1.34 mmol/L 08/19/2023 11:56 AM [facility] Anion Gap (AG) Arterial 8 6 - 16 mmol/L 08/19/2023 11:56 AM [facility] Glucose WB 188(H) 70 - 115 mg/dL 08/19/2023 11:56 AM [facility] Lactic Acid Whole Blood 2.9(H) <=2.0 mmol/L 08/19/2023 11:56 AM [facility] Blood BLOOD SPECIMEN / Unknown 08/19/2023 11:56 AM CDT 08/19/2023 12:02 PM CDT Narrative [facility] - 08/19/2023 11:56 AM CDT Critical Value Acknowledged Licensed healthcare provider notified Jyoti Fung DO LAB - POINT OF CARE ORDERABLES [address] [address], [place] [phone] * BLOOD GAS ART+LYTES+METAB+COOX POC NOTIF (08/19/2023 11:52 AM CDT) Comment Notification Label Only - See Separate Report 08/19/2023 1:00 PM T [facility] Other MISCELLANEOUS SAMPLES / Unknown 08/19/2023 11:52 AM CDT 08/19/2023 11:53 AM CDT Jyoti Fung DO LAB - BLOOD GASES OR DERABLES [address] [address] [phone] * IV PLACEMENT PERFORMABLE (08/19/2023 11:16 AM CDT) Narrative Yolanda Wylie, DO - 08/19/2023 11:16 AM CDT Yolanda Wylie, DO ? 08/19/2023 11:17 AM Peripheral IV Line Placement: Patient Location: ??OR Insertion Time: ??08/19/2023 10:30 AM Procedure: IV start ([id number]). Procedure Section: ?? Skin Prep: alcohol. Orientation: left Location: arm Catheter Gauge: 18 Number of Attempts: 1. Procedure Tolerance: performed while patient under general anesthesia. Staff Section ? Anesthesia Provider: Yolanda Wylie, DO, Performed the procedure ? Provider #1: Joaquina Cooney MD. Joaquina Cooney MD [facility] ORDERABLES * TRANSFUSE RED BLOOD CELL LEUKOREDUCED UNIT(S) (08/19/2023 10:47 AM CDT) Franco Flynn MD NURSING - BLOOD PROD TRANSFUSION * PATHOLOGY TISSUE (08/19/2023 9:48 AM CDT) Only the most recent of2 resultswithin the time period is included. Case Report Surgical Pathology Report ? Case: [id number] ? Authorizing Provider: ??Franco Flynn MD ?Collected: ? 08/19/2023 09:48 AM ? Ordering Location: ? [facility] ? Received: ?08/19/2023 01:46 PM ? Pathologist: ? Lashonda Aranda MD ? Specimen: ?Amputation Leg BK, Left below knee amputation ? 08/23/2023 8:34 AM [facility] Final Diagnosis Lower extremity, left, below knee amputation (A): - Soft tissue margins appear viable and negative for acute inflammation - Marrow margins negative for acute inflammation - Calcified blood vessels 08/23/2023 8:34 AM [facility] Microscopic Description and Comment Microscopic examination substantiates the diagnosis. 08/23/2023 8:34 AM [facility] Clinical History The patient is a 62-year-old male with history of left lower extremity necrotizing fasciitis status post left ankle disarticulation who presents for formalization. Operative procedure: Left below knee amputation. 08/23/2023 8:34 AM [facility] Gross Description The requisition and specimen(s) are identified with the patient's name Dimitry Pa . Received in formalin, specimen A , consists of a 28.1 (epidermal resection to disarticulation) x 12.5 (ML) x 5.1 cm (AP) left below the knee amputation with ankle disarticulation. Extending from the skin and soft tissue margin is a 2.1 cm length x 3.2 cm diameter portion of tibia. All surgical margins appear grossly viable. Present on the posterior epidermis is a rectangular-shaped excision exposing underlying soft tissue extending 10.0 cm from the margin. The epidermal surface is basurto, hairbearing and diffusely scaly. Serial sectioning shows a pallor musculature. The anterior and posterior tibial arteries are patent and of normal caliber. The posterior tibial artery (inked blue) is moderately calcified. No mass, lesion or ulcer is identified./BAJ Chemistry Professor sections are submitted as follows: A1-Tibia bone marrow margin A2-Fibula bone marrow margin A3-Skin and soft tissue margin A4-Scaly epidermis A5- Vasculature 08/23/2023 8:34 AM CDT [facility] Pathologist Location at [facility] 08/23/2023 8:34 AM CDT [facility] Disclaimer The performance characteristics of all immunohistochemical and indirect immunofluorescence stains (if any) cited in this report were determined by the Histopathology Laboratory of [facility]. Some of these tests were developed by our own laboratory and have not been cleared or approved by the US Food and Drug Administration. The FDA does not require this test to go through premarket FDA review. These tests are used for clinical purposes. They should not be regarded as investigational or for research. This laboratory is certified under the Clinical Laboratory Improvement Amendments (CLIA) as qualified to perform high complexity clinical laboratory testing. This case has been personally reviewed and interpreted by the attending (teaching) pathologist. 08/23/2023 8:34 AM CDT [facility] Embedded Images 08/23/2023 8:34 AM CDT [facility] Gross only SPECIMEN OBTAINED BY AMPUTATION / Unknown 08/19/2023 9:48 AM CDT 08/19/2023 1:46 PM CDT Comment:Pre-op diagnosis: left foot infection status post ankle disarticulation Franco Flynn MD LAB - PATHOLOGY/CYTO LOGY ORDERABLES Performing Organization Address City/State/[facility] Co de Phone Number [facility] [address] [phone] * ETT LINE PERFORMABLE (08/19/2023 8:23 AM CDT) Narrative Sultana Taveras Anes Asst - 08/19/2023 8:23 AM CDT Sultana Taveras Anes Asst ? 08/19/2023 ??8:24 AM Endotracheal Tube Placement: ? Patient Location: OR. Intubation Event Date/Time: ??08/19/2023 8:05 AM Procedure: intubation ([id number]). Procedure Section: ?? Sedation: under general anesthesia. Indications for Airway Management: ??anesthesia Induction: standard IV Patient Position: ??supine Mask Ventilation: difficult and required 2 people (2 handed). Blade Type: Sebastian Blade Size: 4 Laryngoscopy View: grade 2 (partial cords) Tube: endotracheal tube Placement: oral Tube type: cuff - inflated Tube Size (MM): 8 Depth of Insertion (CM): 24 Measured From: lips Cuff Inflated With: air Number of Attempts: 1. Placement Verified By: direct visualization, bilateral breath sounds, chest auscultation and CO2 monitor Tube secured with: ??adhesive tape. Dentition unchanged? ??Yes Difficult Airway? ??No. Procedure Start Time: 08/19/2023 8:05 AM. Staff Section ? Anesthesia Provider: Airport Duty Manager, Student Anesthesiology Airport Duty Manager Student Anesthesiology, Performed the procedure ? Provider #1: Sultana Taveras Anes Asst. ? Provider #2: Joaquina Cooney MD. Additional Comments: Atraumatic intubation by RICKY Briceño with lips, teeth, and tongue in pre-op condition. Eyes taped prior to airway manipulation. . Joaquina Cooney MD [facility] ORDERABLES * TYPE + SCREEN PANEL (08/19/2023 12:51 AM CDT) Only the most recent of2 resultswithin the time period is included. [facility] Antibody Screen NEG 2:40 AM CDT [facility] ABO Rh O POS 08/19/2023 2:40 AM CDT [facility] Blood Bank BLOOD SPECIMEN / Unknown Lab Venipuncture / Unknown 08/19/2023 12:51 AM CDT 08/19/2023 2:00 AM CDT Jyoti Fung DO LAB - BLOOD BANK ORD ERABLES [facility] [address] [place] [address], [place] [phone] * (ABNORMAL) RENAL FUNCTION PANEL (08/19/2023 12:51 AM CDT) [facility] BUN 12 7 - 26 mg/dL 08/19/2023 2:25 AM CDT [facility] Creatinine 0.50(L) 0.71 - 1.16 mg/dL 08/19/2023 2:25 AM [facility] Sodium 132(L) 136 - 145 mmol/L 08/19/2023 2:25 AM [facility] Potassium 3.7 3.5 - 4.5 mmol/L 08/19/2023 2:25 AM [facility] Chloride 101 98 - 107 mmol/L 08/19/2023 2:25 AM [facility] CO2 26 22 - 29 mmol/L 08/19/2023 2:25 AM [facility] Glucose 147(H) 70 - 115 mg/dL 08/19/2023 2:25 AM [facility] Albumin 1.6(L) 3.4 - 5.0 g/dL 08/19/2023 2:25 AM [facility] Calcium 8.2(L) 8.4 - 10.2 mg/dL 08/19/2023 2:25 AM [facility] Phosphorus 2.1(L) 2.8 - 5.1 mg/dL 08/19/2023 2:25 AM [facility] Anion Gap 5(L) 6 - 16 08/19/2023 2:25 AM [facility] BUN/Creatinine Ratio 24(H) 7 - 23 08/19/2023 2:25 AM [facility] Osmolality Calculated 276 275 - 295 mOsm/kg 08/19/2023 2:25 AM [facility] eGFR by CKD-EPI >90 >=90 mL/min/1.7 3 m2 08/19/2023 2:25 AM [facility] Blood BLOOD SPECIMEN / Unknown Lab Venipuncture / Unknown 08/19/2023 12:51 AM CDT 08/19/2023 1:59 AM CDT Jyoti Fung DO LAB - CHEMISTRY SHAKILA Ruano Organization Address City/State/ZIP Co de Phone Number [facility] [address] [place] [phone], [place] [phone] * (ABNORMAL) BASIC METABOLIC PANEL (CALCIUM TOTAL) (08/18/2023 2:36 AM CDT) Only the most recent of3 resultswithin the time period is included. BUN 14 7 - 26 mg/dL 08/18/2023 4:15 AM [facility] Creatinine 0.49(L) 0.71 - 1.16 mg/dL 08/18/2023 4:15 AM [facility] Sodium 132(L) 136 - 145 mmol/L 08/18/2023 4:15 AM [facility] Potassium 3.8 3.5 - 4.5 mmol/L 08/18/2023 4:15 AM [facility] Chloride 100 98 - 107 mmol/L 08/18/2023 4:15 AM [facility] CO2 24 22 - 29 mmol/L 08/18/2023 4:15 AM [facility] Glucose 79 70 - 115 mg/dL 08/18/2023 4:15 AM [facility] Calcium 7.8(L) 8.4 - 10.2 mg/dL 08/18/2023 4:15 AM [facility] Anion Gap 8 6 - 16 08/18/2023 4:15 AM [facility] BUN/Creatinine Ratio 29(H) 7 - 23 08/18/2023 4:15 AM [facility] Osmolality Calculated 273(L) 275 - 295 mOsm/kg 08/18/2023 4:15 AM [facility] eGFR by CKD-EPI >90 >=90 mL/min/1.7 3 m2 08/18/2023 4:15 AM [facility] Blood BLOOD SPECIMEN / Unknown Lab Venipuncture / Unknown 08/18/2023 2:36 AM CDT 08/18/2023 3:55 AM T Aishwarya Tarango DO LAB - CHEMISTRY SHAKILA RAO [address] [address], [place] [phone] * FOLATE (08/18/2023 2:36 AM CDT) Folate 8.5 7.0 - 31.4 ng/mL 08/18/2023 4:41 AM CDT [facility] Blood BLOOD SPECIMEN / Unknown Lab Venipuncture / Unknown 08/18/2023 2:36 AM CDT 08/18/2023 3:55 AM CDT Aishwarya Tarango DO LAB - CHEMISTRY ORDE CHYNAVALERIA [address] [address], [place] [phone] * VITAMIN B12 (08/18/2023 2:36 AM CDT) Vitamin B12 518 213 - 816 pg/mL 08/18/2023 4:41 AM CDT [facility] Blood BLOOD SPECIMEN / Unknown Lab Venipuncture / Unknown 08/18/2023 2:36 AM CDT 08/18/2023 3:55 AM CDT Aishwarya Tarango DO LAB - CHEMISTRY ORDE CHYNAVALERIA Performing Organization Address City/[facility]/ZIP Co de Phone Number [address] [address], [place] [phone] * (ABNORMAL) IRON + TRANSFERRIN PANEL (08/18/2023 2:36 AM CDT) Iron 16(L) 50 - 175 ug/dL 08/18/2023 4:35 AM CDT [facility] Transferrin 96(L) 174 - 382 mg/dL 08/18/2023 4:35 AM CDT [facility] Transferrin Saturation % 13(L) 16 - 50 % 08/18/2023 4:35 AM CDT [facility] TIBC Calculated 120(L) 240 - 450 ug/dL 08/18/2023 4:35 AM CDT [facility] Blood BLOOD SPECIMEN / Unknown Lab Venipuncture / Unknown 08/18/2023 2:36 AM CDT 08/18/2023 3:43 AM CDT Aishwarya Tarango DO LAB - CHEMISTRY ORDE RABLES [facility] [address] [place] [address], [place] [phone] * (ABNORMAL) LIPID PROFILE (08/17/2023 1:57 AM CDT) Cholesterol Total 94 <200 mg/dL 08/17/2023 3:30 AM T [facility] HDL 26(L) >40 mg/dL 08/17/2023 3:30 AM [facility] Comment: ATP III Classification of HDL Cholesterol: ? <40 mg/dL: ??Considered a major risk factor. ? >60 mg/dL: ??Considered a negative risk factor. ? LDL Calculated 59 <100 mg/dL 08/17/2023 3:30 AM [facility] Comment: ATP III Classification of LDL Cholesterol: ?<100 mg/dL: ??Optimal ? 100 - 129 mg/dL: ??Near Optimal/Above Optimal ? 130 - 159 mg/dL: ??Borderline High ? 160 - 189 mg/dL: ??High ?>190 mg/dL: ??Very High ? Triglycerides 46 <150 mg/dL 08/17/2023 3:30 AM [facility] Comment: ATP III Classification of Triglycerides: ?<150 mg/dL: ??Normal ? 150 - 199 mg/dL: ??Borderline High ? 200 - 400 mg/dL: ??High ?>500 mg/dL: ??Very High Blood BLOOD SPECIMEN / Unknown Lab Venipuncture / Unknown 08/17/2023 1:57 AM CDT 08/17/2023 2:56 AM CDT Vishal Mejias MD LAB - CHEMISTRY ORDERABLES Performing Organization Address [facility]/ZIP Co de Phone Number [facility] [address] [place] [address], [place] [phone] * BLOOD TYPE VERIFICATION (08/16/2023 6:24 AM CDT) ABO Rh O POS 08/16/2023 7:1 9 AM CDT [facility] Blood Bank BLOOD SPECIMEN / Unknown Lab Venipuncture / Unknown 08/16/2023 6:24 AM CDT 08/16/2023 6:28 AM CDT Gregg Stock MD LAB - BLOOD BANK ORD ERABLES Performing Organization Address City/[facility]/ZIP Co de Phone Number [facility] [address] [place] [address], [place] [phone] * (ABNORMAL) HEMOGLOBIN A1C (08/16/2023 5:55 AM CDT) Hemoglobin A1c 8.6(H) <=5.6 % 08/16/2023 2:48 PM CDT [facility] Estimated Average Glucose 200 mg/dL 08/16/2023 2:48 PM CDT [facility] Comment: HbA1c Interpretation: Normal : < 5.7% Pre-diabetes: 5.7-6.4% Diabetes: Equal to or greater than 6.5% Test results diagnostic of diabetes should be repeated for confirmation. Treatment target values recommended by ADA and other clinical organizations should be used to evaluate metabolic control in patients. Reference: [place] [employer], Standards of Care in Diabetes -2020 In patients 70 years and older consider HbA1c target range of 7.0-7.5% (Reference: Angel Winn et al. JAMDA. 2012) The Sebia assay for the measurement of HbA1c is a National Glycohemoglobin Standardization Program (NGSP) certified method. Blood BLOOD SPECIMEN / Unknown 08/16/2023 5:55 AM CDT 08/16/2023 12:49 PM CDT Ramu Flynn MD LAB - CHEMISTRY SHAKILA RAO [address] [address], [place] [phone] * CULTURE FUNGUS OTHER+FUNGUS SMEAR (08/15/2023 8:45 AM CDT) Only the most recent of2 resultswithin the time period is included. Culture No fungus isolated KARY 09/13/2023 6:25 AM CDT [facility] Fungus Stain No yeast or hyphae seen 09/13/2023 6:25 AM CDT [facility] Microbiology ENTIRE FOOT / Unknown Collection / Unknown 08/15/2023 8:45 AM CDT 08/15/2023 8:58 AM CDT Franco Flynn MD LAB - MICROBIOLOGY O RDERABLES [facility] [address] [place] [address], [place] [phone] * Peripheral Nerve Block (08/15/2023 8:08 AM CDT) Narrative Reymundo Fermin MD - 08/15/2023 8:08 AM CDT Reymundo Fermin MD ? 08/15/2023 ??8:10 AM Peripheral ??Nerve Block ?? Procedure: Peripheral Nerve Block Patient Location: ??Pre-op Preprocedure Section: ?? Indications: surgical anesthesia. Pre-anesthetic Checklist: Patient identified, IV Checked, Site examined and clear, Risks and benefits discussed, Surgical consent verified, Monitors and equipment, Time-out performed, Informed consent obtained, Pre-op evaluation done, Questions answered/anesthesia questions answered, Allergies reviewed and Removal hand/wrist jewelry Monitors: Pulse Ox and EKG. Patient Condition: ??awake Patient Position: supine Patient Sedated? ??No Procedure Section ?? Laterality: left Block Performed: ??Adductor Canal Prep: ??Chloraprep Strerile Field: gloves, mask and hat/cap Needle Type: ??Echogenic insulated Needle Gauge: ??22 Needle Length: ??100 mm Catheter?No Ultrasound Guided? ?? Yes ? Visualization: ??Preliminary scan performed, Important anatomical structures identified, Needle tip visualized throughout the procedure, Target identified, No intraneural or intravascular puncture occurred, Ultrasound image in chart, Local visualized surrounding nerve on ultrasound and Hydrodissection utilized Block Agents or Additives used? Yes Block agents used: bupivacaine PF (MARCAINE PF) 0.5 % injection, 10 mL lidocaine (XYLOCAINE) 1.5 % injection, 10 mL Procedure Tolerance: tolerated well Assessment: completed Staff Section ? Anesthesia Provider: Clinton Patel, DO, Performed the procedure ? Provider #1: Reymundo Fermin MD. Reymundo Fermin MD GENERAL ANESTHESIA O RDERABLES * Peripheral Nerve Block (08/15/2023 8:05 AM CDT) Narrative Reymundo Fermin MD - 08/15/2023 8:05 AM CDT Reymundo Fermin MD ? 08/15/2023 ??8:11 AM Peripheral ??Nerve Block ?? Procedure: Peripheral Nerve Block Patient Location: ??Pre-op Preprocedure Section: ?? Indications: surgical anesthesia. Pre-anesthetic Checklist: Patient identified, IV Checked, Site examined and clear, Risks and benefits discussed, Surgical consent verified, Monitors and equipment, Time-out performed, Informed consent obtained, Pre-op evaluation done, Questions answered/anesthesia questions answered, Allergies reviewed and Removal hand/wrist jewelry Monitors: Pulse Ox and EKG. Patient Condition: ??awake Patient Position: right lateral decubitus Patient Sedated? ??No Procedure Section ?? Laterality: left Block Performed: ??Popliteal Prep: ??Chloraprep Strerile Field: gloves, mask and hat/cap Needle Type: ??nerve stimulator Needle Gauge: ??22 Needle Length: ??100 mm Catheter?No Nerve Stimulator? ?? Yes ? Stimulation/Motor Response #1: ??plantar flexion ? Loss of Stimulation at (mA): ??0.5 Ultrasound Guided? ?? Yes ? Technique: ??in plane ? Visualization: ??Preliminary scan performed, Important anatomical structures identified, Needle tip visualized throughout the procedure, Target identified, No intraneural or intravascular puncture occurred, Ultrasound image in chart, Local visualized surrounding nerve on ultrasound and Hydrodissection utilized Injection was made incrementally with constant monitoring and aspirations every 5 mL's Block Agents or Additives used? Yes Block agents used: bupivacaine PF (MARCAINE PF) 0.5 % injection, 10 mL lidocaine (XYLOCAINE) 1.5 % injection, 10 mL Procedure Tolerance: tolerated well Assessment: completed Procedure Start Time: 08/15/2023 7:55 AM. Procedure End Time: 08/15/2023 8:00 AM. Procedure Total Time: 5 ??minutes. Staff Section ? Anesthesia Provider: Reymundo Fermin MD, Performed the procedure ? Provider #1: Clinton Patel DO, Performed the procedure. Reymundo Fermin MD GENERAL ANESTHESIA O RDERABLES * LACTIC ACID BLOOD REFLEX TO REPEAT (08/15/2023 5:46 AM CDT) [facility] Lactic Acid-Stat 1.0 <=2.0 mmol/L 08/15/2023 6:20 AM CDT [facility] Blood BLOOD SPECIMEN / Unknown Venipuncture / Unknown 08/15/2023 5:46 AM CDT 08/15/2023 6:01 AM CDT Gregg Stock MD LAB - CHEMISTRY SHAKILA RAO [address] [address], [place] [phone] * TROPONIN-I HIGH SENSITIVE BASELINE + 1HR (08/15/2023 5:46 AM CDT) [facility] Troponin I High Sensitive 10 <=35 ng/L 08/15/2023 6:32 AM CDT [facility] Blood BLOOD SPECIMEN / Unknown Venipuncture / Unknown 08/15/2023 5:46 AM CDT 08/15/2023 6:02 AM CDT Gregg Stock MD LAB - CHEMISTRY ORDSilvio RAO [address] [address], [place] [phone] * (ABNORMAL) C-REACTIVE PROTEIN (08/15/2023 5:46 AM CDT) C-Reactive Protein 16.6(H) <=0.5 mg/dL 08/15/2023 6:27 AM CDT [facility] Blood BLOOD SPECIMEN / Unknown Venipuncture / Unknown 08/15/2023 5:46 AM CDT 08/15/2023 6:02 AM CDT Gregg Stock MD LAB - CHEMISTRY SHAKILA RAO [address] [address], [place] [phone] * (ABNORMAL) ERYTHROCYTE SEDIMENTATION RATE (08/15/2023 5:46 AM CDT) Pathologist [facility] Erythrocyte Sedimentation Rate Westergren 113(H) 0 - 20 MM/HR 08/15/2023 6:20 AM CDT [facility] Blood BLOOD SPECIMEN / Unknown Venipuncture / Unknown 08/15/2023 5:46 AM CDT 08/15/2023 6:01 AM CDT Gregg Stock MD LAB - HEMATOLOGY JEANNE COVINGTON [address] [address], [place] [phone] Care Teams Ballast Regulator Operator Relationship Specialty Start Date End Date Helen Pereira MD [address] [place] [address] PCP - General Family Medicine 12/27/20
--- OUTSIDE RECORDS SUMMARY | 2024-05-16 16:43 | XMS_ITS | Encounter Summary ---
Author Organization [facility] Address [address] [place] [address] Care Team Providers Care Digital Strategy Specialist Name Role Phone Helen Pereira MD Primary Care Provider Reason for Visit * Reason Onset Date Comments Concerns 09/20/2023 Encounter Details Date Type Department Care Team (Late st Contact Info) Description 09/20/2023 Telephone [facility] - Centralized Scheduling [address] [place] [address] Franco Flynn MD [address] [place] [address] Concerns Social History Tobacco Use Types Packs/Day Years Used Date Smoking Tobacco: Never Passive Smoke Exposure: Never Smokeless Tobacco: Never AUDIT-C Answer Date Recorded Q1: How often [...] and heating? Not hard at all 08/15/2023 [facility] [place] of Occupat ional Health - Occupational Stress [...] place to sleep or slept in a [place] health care facility (including now)? No 08/15/2023 Sex and Gender Information Value Date Recorded Sex Assigned at Not on file Gender Identity Not on file Sexual Orientation Not on file documented as of this encounter Functional Status Functional Status Response Date of Assess ment Is person deaf or have serious hearing difficult y? No 08/15/2023 Is person blind or have serious difficulty seein g? No 08/15/2023 Does person have serious dif ficulty walking/climbing stairs? No 08/15/2023 Does person have difficulty dressing/bathing? No 08/15/2023 Does person have difficulty doing errands alone? No 08/15/2023 Cognitive Status Response Date of Assessm ent Does person have difficulty concentrating/remembering/making decisions? No 08/15/2023 documented as of this encounter Miscellaneous Notes * Telephone Encounter - Stephanie Sanchez - 09/20/2023 12:26 PM CDT Patient needs another document faxed to [employer] for returning to work written as until further notice . documented in this encounter Plan of Treatment Not on file documented as of this encounter Visit Diagnoses Not on filedocumented in this encounter Care Teams Digital Strategy Specialist Relationship Specialty Start Date End Date Helen Pereira MD [address] [place] [address] PCP - General Family Medicine 12/27/20 documented as of this encounter
--- OUTSIDE RECORDS SUMMARY | 2024-05-16 16:43 | XMS_ITS | Referral Summary ---
Author Organization [facility] Address [address] [place] [address] Care Team Providers Care Timber Rider Name Role Phone Helen Pereira MD Primary Care Provider Source Comments [facility],non-owned Affiliates and Associated Physician Practices is amultiple site organization consisting of ambulatory clinics and hospital sitesin [place], [place], [place] and [place]. This disclosure is being madepursuant to the Care Everywhere program and may not contain all information available regarding this patient. Last updated 18.[facility] Encounters Date Type Department Care Team Description 03/14/2024 Travel from Last 3 Months Allergies Active Allergy Reactions Criticality Noted Date Comments Penicillins Swelling Medium 08/06/2019 Benadryl resolved symptoms Medications * Be aware that medications may not be up to date on this document. Alwaysverify current medications with the patient. Medication Sig Dispensed Refills Start Date End Date Status carvedilol (Coreg) 3.125 MG tablet Take 1 (one) tablet by mouth 2 times daily with morning and evening meal Active magnesium oxide (Mag-Ox) 400 MG tablet Take 1 (one) tablet by mouth once daily Active vitamin D3 (Cholecalciferol) 25 MCG (1000 UNITS) tablet Take 2 (two) tablets by mouth once daily Active ferrous sulfate 325 (65 FE) MG tablet Take 1 (one) tablet by mouth daily with breakfast 08/26/2023 Active empagliflozin (Jardiance) 10 MG tablet Take 1 (one) tablet by mouth once daily 08/25/2023 Active insulin lispro (HumaLOG) 100 UNIT/ML cartridge Sliding scale Acti ve insulin glargine (Lantus/Semglee) 100 units/ml injection Inject 4 (four) Units subcutaneously 2 times daily Active DULoxetine (Cymbalta) 20 MG capsule 01/30/2024 Active furosemide (Lasix) 40 MG tablet 01/17/2024 Active Entresto 24-26 MG tablet 01/21/2024 Active Active Problems Problem Noted Date Diagnosed Date S/P unilateral BKA (below knee amputation), left 08/24/2023 Severe protein-calorie malnutrition 08/18/2023 Necrotizing fasciitis 08/15/2023 Elevated C-reactive protein (CRP) 08/15/2023 Elevated erythrocyte sedimentation rate 08/15/19 24 Systolic congestive heart failure 08/15/2023 CAD (coronary artery disease) 08/15/2023 History of complete heart block 08/15/2023 Status post biventricular pacemaker 08/15/2023 Cardiac resynchronization th erapy defibrillator (BOAT WASHER-D) in place 08/07/2019 08/17/2023 Overview (08/17/2023): Medtronic Amplia MRI Quad BOAT WASHER-D implanted on 08/07/19 for NICM/CHF/CHB/Syncope. Alvin - PT TRANSFERRED TO SMILEY ORNELAS MD Immunizations Name Administration Dates Next Due ProPlan primary monoval ent 12+ yr 0.3mL Purple cap 07/03/2020,06/08/2020 INFLUENZA VACCINE, HIGH-DOSE , QUADR. (FLUZONE HIGH-DOSE QUADRIVALENT; 65Y+), 0.7 ML (HD-IIV4) 01/13/2023,02/16/2022,02/05/2021 INFLUENZA VACCINE, HIGH-DOSE , TRIV. (FLUZONE HIGH-DOSE TRIVALENT; 65Y+) (HD-IIV3) 02/23/2018 PNEUMOCOCCAL PCV20 CONJ VAC IM 01/13/2023,2021 Pneumococcal Pcv13 Conj 01/31/2019 iNFLUENZA VACCINE, RECOM-JARAMILLO, QUADR. (FLUBLOCK QUADRIVALENT; 18Y+) (RIV4) 01/17/2020,01/31/2019 Social History Tobacco Use Types Packs/Day Years [...] and heating? Not hard at all 08/15/2023 [facility] [place] of Occupat ional Health - Occupational Stress [...] place to sleep or slept in a long-term (including now)? No 08/15/2023 Sex and Gender [...] Mass Index 20.81 02/08/2024 10:45 AM CDT Functional Status Functional Status Response Date of [...] person have difficulty concentrating/remembering/making decisions? No 08/15/2023 Plan of Treatment Not on file Advance Directives * Full Code (Latest Code Status on File) Date Activated Date Inactivated Comments 08/15/2023 4:14 PM 08/25/2023 6:45 PM Care Teams Timber Rider Relationship Specialty Start Date End Date Helen Pereira MD [address] [place] [address] PCP - General Family Medicine 12/27/20
--- OUTSIDE RECORDS SUMMARY | 2024-05-16 16:43 | XMS_ITS | Clinical Summary ---
Author Organization [facility] Address [address] [place] [address] Care Team Providers Care Chief Radiation Therapist Name Role Phone Helen Pereira MD Primary Care Provider Source Comments [facility],non-owned Affiliates and Associated Physician Practices is amultiple site organization consisting of ambulatory clinics and hospital sitesin [place], [place], [place] and [place]. This disclosure is being madepursuant to the Care Everywhere program and may not contain all information available regarding this patient. Last updated 18.[facility] Allergies Active Allergy Reactions Criticality Noted Date [...] pacemaker 08/15/2023 Cardiac resynchronization th erapy defibrillator (BIOMEDICAL ENGINEERING DIRECTOR-D) in place 08/07/2019 08/17/2023 Overview (08/17/2023): Medtronic Amplia MRI Quad BIOMEDICAL ENGINEERING DIRECTOR-D implanted on 08/07/19 for NICM/CHF/CHB/Syncope. Alvin - PT TRANSFERRED TO SMILEY ORNELAS MD Encounters Date Type Department Care Team Description 03/14/2024 Travel from Last 3 Months Immunizations Name Administration Dates Next Due [employer] primary monoval ent 12+ yr 0.3mL Purple [...] and heating? Not hard at all 08/15/2023 [facility] [place] of Occupat ional Health - Occupational Stress [...] place to sleep or slept in a long term (including now)? No 08/15/2023 Sex and Gender [...] Mass Index 20.81 02/08/2024 10:45 AM CDT Plan of Treatment Health Maintenance Due Date Last Done Comments COLOGUARD (AGES 45-75) - COLON CA SCREENING 1952 COLON MONITORING 1952 COLONOSCOPY - COLON CA SCREENING 1952 CT COLONOGRAPHY - COLON CA SCREENING 1952 Colorectal Cancer Screening 1952 FIT - COLON CA SCREENING 1952 FLEX SIG - COLON CA SCREENING 1952 MEDICARE AWV ? 12 MONTHS 1952 HEPATITIS C SCREENING 12/12/1970 DTAP/TDAP/TD VACCINES (1 - Tdap) 12/17/1971 ZOSTER VACCINE (1 of 2) 2002 Respiratory Syncytial Virus (RSV) Vaccine Pt: or over 60 yrs (1 - Risk 60-74 years 1-dose series) 2012 COVID-19 VACCINE ( season) 2023 07/03/2020, 06/08/2020 INFLUENZA VACCINE (#1) 2023 3, 02/16/2022, 02/05/2021, Additional history exists DEPRESSION SCREENING 04/18/2024 PNEUMOCOCCAL VACCINE 50+ Completed 023, 02/16/2022, 01/31/2019 HEPATITIS B VACCINE Aged Out No longe r eligible based on patient's age to complete this topic HIB VACCINE Aged Out No longer eligi ble based on patient's age to complete this topic HPV VACCINE Aged Out No longer eligi ble based on patient's age to complete this topic MENINGOCOCCAL (Group B) VACCINE Aged Out No longer eligible based on patient's age to complete this topic MENINGOCOCCAL VACCINE Aged Out No maye whitney eligible based on patient's age to complete this topic Advance Directives * Full Code (Latest Code Status on File) Date Activated Date Inactivated Comments 08/15/2023 4:14 PM 08/25/2023 6:45 PM Care Teams Chief Radiation Therapist Relationship Specialty Start Date End Date Helen Pereira MD [address] [place] [address] PCP - General Family Medicine 12/27/20
[2024-05-16] MEDS: CEFEPIME 2 GM/NS 50 ML 2 GM/50 ML BAG IVPB (17:10)
[2024-05-16 17:24] LABS: Add Urine Microscopic? NO; Appearance Urine Clear (Clear); Bilirubin Urine Negative (Negative); Blood Urine Negative (Negative); Color Urine Yellow (Yellow); Glucose Urine UA 3+ mg/dL (Negative); Ketones Urine Negative (Negative); Leukocyte Esterase Ur Negative LEU/UL (Negative); Nitrate Urine Negative (Negative); Protein Urine Negative (Negative); Specific Grav Ur 1.021 (1.001-1.035)
[2024-05-16 17:36] LABS: Alanine Aminotransferase 11 U/L (6-50); Albumin Level 3.6 g/dL (3.5-5.1); Alkaline Phosphatase 153 U/L (38-126); Anion Gap 6 mmol/L (4-12); Aspartate Amino Transferase 29 U/L (17-59); Bilirubin,Total 0.8 mg/dL (0.2-1.3); Blood Urea Nitrogen 21 mg/dL (9-20); Carbon Dioxide 38 mmol/L (22-30); Chloride 95 mmol/L (98-107); Estimated CRCL calculation 80 ml/min; Estimated Glomerular Filt Rate > 60; Glucose 207 mg/dL (65-110); Lipase 12 U/L (23-300); Magnesium 2.3 mg/dL (1.6-2.3); Potassium 4.5 mmol/L (3.4-5.0); Sodium 139 mmol/L (137-145)
[2024-05-16 17:38] LABS: INR 1.1; Prothrombin Time 14.2 Seconds (11.1-14.7)
[2024-05-16 17:39] LABS: Partial Thromboplastin Time 32.9 Seconds (22.3-36.8)
[2024-05-16 17:47] LABS: Lactic Acid Reflex 1.6 mmol/L (0.7-2.0)
[2024-05-16 17:48] LABS: NT Pro B Type Natriuretic Pept 6800 pg/mL (19.9-100); Troponin I < 0.012 ng/mL (0.000-0.034)
[2024-05-16] MEDS: DOXYCYCLINE 100 MG/NS 100 ML 100 MG/100 ML BAG IVPB (17:56)
[2024-05-16 18:11] LABS: D Dimer 3.83 ug/mL (<0.48)
[2024-05-16 18:18] LABS: Influenza A QL RT-PCR Negative (Negative); Influenza B QL RT-PCR Negative (Negative); RSV RNA, RT-PCR Negative (Negative); SARS-CoV-2 RNA PCR Negative (Negative)
[2024-05-16 18:23] LABS: Basophils Absolute Auto 0.1 K/mm3 (0.0-0.1); Basophils Percent Auto 0.7 % (0.2-1.2); Eosinophils Absolute Auto 0.1 K/mm3 (0-0.3); Eosinophils Percent Auto 1.9 % (0-4.4); Hematocrit 33.5 % (42.0-52.0); Hemoglobin 10.1 g/dL (14.0-18.0); Immature Granulocyte Absolute 0.02 K/mm3 (0.00-0.031); Immature Granulocyte Percent A 0.3 % (0-0.5); Lymphocytes Absolute Auto 0.53 K/mm3 (0.9-3.2); Lymphocytes Percent Auto 7.9 % (18.3-44.2); Mean Corpuscular HGB Conc 30.1 g/dl (32-36); Mean Corpuscular Hemoglobin 24.9 pg (26-34); Mean Corpuscular Volume 82.7 fl (80-100); Monocytes Absolute Auto 0.6 K/mm3 (0.1-0.6); Monocytes Percent Auto 9.4 % (2.6-8.5); Neutrophils Absolute Auto 5.3 K/mm3 (1.3-6.7); Neutrophils Percent Auto 79.8 % (45.5-73.1); Platelet Count Result 408 k/mm3 (150-375); Red Blood Count 4.05 M/mm3 (4.6-6.20); Red Cell Distribution Width 17.6 % (11.5-14.5); White Blood Count 6.7 K/mm3 (4.5-10.0)
[2024-05-16 18:46] LABS: Free T4 Free Thyroxine Reflex 1.63 ng/dL (0.78-2.19)
[2024-05-16] MEDS: VANCOMYCIN 1,500 MG/NS 500 ML 1,500 MG/500 ML BAG 250 MG IVPB (18:49)
[2024-05-16 19:55] LABS: MRSA (PCR) NOT DETECTED (NOT DETECTE)
[2024-05-16] MEDS: FUROSEMIDE INJ 40 MG/4 ML VIAL IV PUSH (20:49)
[2024-05-16 20:54] LABS: Troponin I 0.013 ng/mL (0.000-0.034)
--- NOTE | 2024-05-16 21:07 | P.HP_ITS ---
H&P: HPI History of Present Illness Date/Time: 05/16/24 21:07 Chief Complaint: Shortness of breath Narrative: This is a 73-year-old male with past medical history significant for peripheral vascular disease, left [id number] amputation, chronic right foot ulcer, congestive heart failure, insulin-dependent diabetes mellitus, hypertension., patient is a resident at a local penitentiary. Patient was brought to the emergency room for evaluation due to shortness of breath. Patient denies any fevers, rigors, chills, nausea, vomiting, chest pain, palpitations, PND or orthopnea. Preliminary workup was significant for chest x-ray with bilateral pleural effusions and elevated brain natriuretic peptide. Patient has been admitted for further evaluation management and treatment. CHEST RADIOGRAPH CLINICAL HISTORY: PNA . COMPARISON: 08/14/2023 TECHNIQUE: Single portable view of the chest. FINDINGS The left mid lung is partially obscured due to pacemaker/AICD generator. Wires project over the right atrium, coronary sinus and right ventricle. The remainder of the cardiomediastinal silhouette is otherwise unremarkable. Large bilateral pleural effusions are noted, left greater than right. IMPRESSION: Large bilateral pleural effusions, as detailed above. EXAMINATION: CTA chest PE protocol DATE: 05/16/2024 19:58 VIDEO GAME DESIGNER INDICATION: Hypoxia TECHNIQUE: Computed tomographic angiography (CTA) of the chest was performed with 100 mL Omnipaque-350 intravenous contrast. The dose-length product was 380.16 mGy-cm. Maximum intensity projection 3D-reconstructions of the aorta and other arteries were constructed by the technologist on a separate workstation. COMPARISON: Reference is made to a plain radiograph of the chest performed the same day, approximately 3 hours earlier. FINDINGS: No filling defect is identified within the main or proximal pulmonary arteries. The thoracic aorta is unremarkable, without aneurysmal dilatation or dissection. The heart is enlarged, without pericardial effusion. Large bilateral pleural effusions are identified, right greater than left with adjacent compressive atelectasis. Within the upper abdomen: Reflux of intravenous contrast is identified within the hepatic veins. Densely calcified atherosclerotic disease is noted. Fecal stasis is also present. Diffuse bony demineralization within the thoracic spine without acute compression fracture. IMPRESSION: No pulmonary embolus. No aortic dissection or aneurysmal dilatation. Large bilateral pleural effusions, right greater than left with adjacent compressive atelectasis. Review of Systems Review of Systems: Shortness of breath PMFSH Past Medical History Medical History Orthostatic hypotension Depression Complete heart block Nonsustained ventricular tachycardia Diabetic peripheral neuropathy Insulin dependent type 2 diabetes mellitus Paroxysmal atrial tachycardia Heart failure with reduced ejection fraction Nonischemic cardiomyopathy Vitamin D deficiency Dyslipidemia Essential (primary) hypertension Peripheral arterial disease Apical mural thrombus Shoulder fracture, left Surgical History Surgical History History of left below knee amputation History of complete ray amputation of third toe of right foot (05/2020) Due to osteomyelitis. History of permanent cardiac pacemaker placement (07/2019) Medtronic BiV-ICD placed at [facility]. Family History Family History Other No problems noted. Sibling Acute myocardial infarction Mother Lung cancer Social History Social History Social History: Lives alone in an apartment. He does not drive. Works for [employer]. Rare alcohol use. Lifelong nonsmoker. No drug use. No pets Surrogate medical decision maker: minesh Hurst. Code status: Full code. Smoking status: Former smoker Tobacco type: cigarettes Second hand tobacco smoke exposure: No Alcohol intake: former Substance use: never Substance use type: does not use Other substance usage details: once a year has an expensive bottle of alcohol Do You Feel Safe in your Home?: Yes Lack of Transportation: No Lack of Food: Never True Current Housing: I Have Housing Concerned About Future Housing: No Difficulty Paying Gas/Electric Bills: No Difficulty Paying for Meds: No Currently Unemployed: No Education: High School Diploma/GED Difficulty w/ Childcare or Family Care: No Living arrangements: with family Additional living arrangements comments: Lives with [id number]. . His in only daughter were killed in a car accident. 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 Spiritual care concerns: No Agree to blood products: Yes Meds Home Medications and Allergies Home Medications ?Medication ?Instructions ?Recorded ?Confirmed ?Type empagliflozin 10 mg tablet 10 mg PO DAILY #30 tabs 05/26/21 05/16/24 Rx (Jardiance) carvedilol 3.125 mg tablet (Coreg) 3.125 mg PO Q12H 30 days #60 tabs 07/28/23 05/16/24 Rx cholecalciferol (vitamin D3) 25 1,000 unit PO DAILY #30 tabs 07/28/23 05/16/24 Rx mcg (1,000 unit) tablet (Vitamin D3) magnesium oxide 400 mg (241.3 mg 500 mg (1.25 x 400 mg (241.3 mg 07/28/23 05/16/24 Rx magnesium) tablet magnesium)) PO DAILY #30 tabs duloxetine 20 mg capsule,delayed 20 mg PO DAILY 08/25/23 05/16/24 History release aspirin 81 mg capsule 81 mg PO DAILY 10/09/23 05/16/24 History furosemide 40 mg tablet 40 mg PO BID 10/09/23 05/16/24 History sacubitril 24 mg-valsartan 26 mg 1 tablet PO DAILY 10/09/23 05/16/24 History tablet (Entresto) miconazole nitrate 2 % topical 1 applic topical BID #28 grams 10/12/23 05/16/24 Rx cream clopidogrel 75 mg tablet 75 mg PO DAILY 05/16/24 05/16/24 History glucagon 1 mg solution for 1 mg IM .COMPLEX PRN hypoglycemia 05/16/24 05/17/24 History injection (Glucagon Emergency Kit) insulin glargine 100 unit/mL (3 15 unit subcut HS 05/16/24 05/17/24 History mL) subcutaneous pen (Lantus Solostar U-100 Insulin) insulin lispro 100 unit/mL 1 sliding scale dose subcut AC 05/16/24 05/17/24 History subcutaneous pen (Humalog KwikPen (U-100) Insulin) ipratropium 0.5 mg-albuterol 3 mg 3 ml inhalation QID PRN shortness 05/16/24 05/17/24 History (2.5 mg base)/3 mL nebulization of breath or wheezing soln sertraline 50 mg tablet 50 mg PO DAILY 05/16/24 05/16/24 History Allergies Allergy/AdvReac Type Severity Reaction Status Date / Time Penicillins Allergy Mild Unknown Verified 10/09/23 00:14 Vital Signs Vital Signs - 24 hr 05/16/24 15:54 05/16/24 17:05 05/16/24 18:00 Temperature 97.7 F Pulse Rate 100 93 91 Respiratory Rate 28 H 16 19 Blood Pressure 100/69 106/76 111/73 Pulse Oximetry 100 100 100 Oxygen Delivery Nasal Cannula Oxygen Flow Rate 3 05/16/24 18:50 Temperature Pulse Rate 83 Respiratory Rate 16 Blood Pressure 104/80 Pulse Oximetry 100 Oxygen Delivery Oxygen Flow Rate Exam Narrative: Patient is laying in a stretcher Const: General: cooperative, comfortable, no acute distress, well developed, alert, awake, ill appearing chronically and cachectic Nutritional Appearance: cachectic Orientation/consciousness: patient oriented x3 HENMT: Head: normal to inspection, normocephalic and atraumatic Ears: hearing grossly normal bilaterally Face/Nose/Sinus: normal facial exam Face and sinus: normal facial exam Eyes: General: appearance normal, both eyes and all related structures Pupils: Equal, round and reactive pupils present EOM: EOMs intact bilaterally Neck: Neck: full ROM, no lymphadenopathy and no JVD Thyroid: thyroid normal Lymphatic: no lymphadenopathy noted Resp: Effort & Inspection: normal respiratory effort and able to speak in complete sentences Auscultation: diminished lung sounds Cardio: Jugular venous distension: no JVD Rate: regular rate Rhythm: regular rhythm Heart sounds: S1 normal heart sound present and S2 normal heart sound present GI: GI Palp: Yes Soft to palpation and Yes No hepatosplenomegaly present : General: Yes deferred Skin: Rashes: no rashes Wounds: wounds noted (Right foot ulcer) Neuro: General: patient oriented x3 and CN's II-XI intact bilaterally Cranial nerves: Yes CN's II-XII intact bilaterally and Yes Equal, round and reactive pupils present Cognition (Neuro): normal cognition Speech: normal speech Gait exam (Neuro): Unable to assess gait Motor exam (neuro): 5/5 motor strength present throughout Extrem: General: normal to inspection, full ROM, no joint enlargement and no pedal edema Other: Below the knee left sided amputation H&P: Results Labs Labs: Short CBC 05/16/24 Range/Units 17:00 WBC 6.7 (4.5-10.0) K/mm3 Hgb 10.1 L (14.0-18.0) g/dL Hct 33.5 L (42.0-52.0) % Plt Count 408 H (150-375) k/mm3 [facility] 05/16/24 05/16/2405/16/25 17:00 17:00 17:00 Sodium Cancelled 139 Potassium Cancelled 4.5 Chloride Cancelled Carbon Dioxide BUN Creatinine Glucose Calcium 05/16/24 05/16/24 05/16/24 17:00 17:00 17:00 Sodium Potassium Chloride 95 L Carbon Dioxide Cancelled 38 H BUN Cancelled 21 H Creatinine Cancelled Glucose Calcium 05/16/24 05/16/24 05/16/24 17:00 17:00 17:00 Sodium Potassium Chloride Carbon Dioxide BUN Creatinine 0.63 L Glucose Cancelled 207 H Calcium Cancelled 9.0 Cardiac Enzymes 05/16/24 05/16/24 Range/Units 17:00 20:21 Troponin I < 0.012 0.013 (0.000-0.034) ng/mL Liver Function 05/16/24 05/16/24 05/16/24 Range/Units 17:00 17:00 17:00 Total Bilirubin Cancelled 0.8 AST Cancelled 29 ALT Cancelled Alkaline Phosphatase Albumin 05/16/24 05/16/24 05/16/24 Range/Units 17:00 17:00 17:00 Total Bilirubin AST ALT 11 Alkaline Phosphatase Cancelled 153 H Albumin Cancelled 3.6 Urine 05/16/24 Range/Units 17:04 Urine Color Yellow (Yellow) Urine Appearance Clear (Clear) Urine pH 6.0 (5.0-9.0) Ur Specific [place] 1.021 (1.001-1.035) Urine Protein Negative (Negative) mg/dL Urine Glucose (UA) 3+ H (Negative) mg/dL Assessment and Plan Assessment and plan (1) Acute on chronic combined systolic and diastolic CHF (congestive heart failure): Code(s): I50.43 - Acute on chronic combined systolic (congestive) and diastolic (congestive) heart failure Status: Acute Assessment and Plan: Admit to regular medical floor Diuresis needed Will obtain an echocardiogram Cardiology consult (2) Nonischemic cardiomyopathy: Code(s): I42.8 - Other cardiomyopathies Status: Acute Assessment and Plan: Resume home meds Continue to monitor (3) CAD (coronary artery disease): Code(s): I25.10 - Atherosclerotic heart disease of [place] coronary artery without angina pectoris Status: Acute Assessment and Plan: Chest pain-free (4) Biventricular ICD (implantable cardioverter-defibrillator) in place: Code(s): Z95.810 - Presence of automatic (implantable) cardiac defibrillator Status: Chronic Assessment and Plan: Continue to monitor (5) Paroxysmal atrial tachycardia: Code(s): I47.1 - Supraventricular tachycardia Status: Acute Assessment and Plan: Stable (6) PAOD (peripheral arterial occlusive disease): Code(s): I77.9 - Disorder of arteries and arterioles, unspecified Status: Acute Assessment and Plan: Unchanged (7) Diabetic ulcer of right foot associated with diabetes mellitus due to u nderlying condition: Qualifiers: Diabetic foot ulcer location: other Non-pressure ulcer stage: with necrosis of bone Qualified Code(s): E08.621 - Diabetes mellitus due to underlying condition with foot ulcer; 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 Code(s): E08.621 - Diabetes mellitus due to underlying condition with foot ulcer; L97.519 - Non-pressure chronic ulcer of other part of right foot with unspecified severity Status: Acute Assessment and Plan: Local care (8) Insulin dependent type 2 diabetes mellitus: Code(s): E11.9 - Type 2 diabetes mellitus without complications; Z79.4 - emt intermediate (current) use of insulin Status: Acute Assessment and Plan: Resume home meds (9) Below-knee amputation of left lower extremity: Qualifiers: Encounter type: initial encounter Qualified Code(s): S88.112A - Complete traumatic amputation at level between knee and ankle, left lower leg, initial encounter Code(s): S88.112A - Complete traumatic amputation at level between knee and ankle, left lower leg, initial encounter Status: Acute Assessment and Plan: Fall precautions Hospitalist [facility] Advance Care Plan I have confirmed that the patient's Advanced Care Plan is present, code status is documented, or surrogate decision maker is listed in patient medical record.: Yes Medication Reconciliation I have utilized all available resources to obtain, update and review the patients current medications (includes all prescriptions, OTC, herbals, cannabis, and nutritional supplements).: Yes
--- NOTE | 2024-05-16 23:01 | ADMGEN ---
This patient, Dimitry Pa, was admitted to [facility] Surg Room 322-01. Patient/family oriented to hospital policies and general routines including ID bracelet, bed and alarms, visiting hours, pain management, procedures, bathroom and other care routines, personal items, smoking policy, room service/diet, and visiting hours. Information on how to activate the Rapid Response Team has been discussed. Patient/Family are encouraged to report perceived risks to care and to ask questions if they do not understand what they are told or what they should do.
[2024-05-17] VITALS (7 sets, daily range): BP systolic 92–100; BP diastolic 55–61; PULSE 68–84; RESP 12–18; TEMP 36.2–36.8; O2SAT 100
--- NOTE | 2024-05-17 | ECHO_ITS ---
Patient Info Name: Dimitry Pa Age: 73 years : 1950 Gender: Male Ht: 69 in Wt: 135 lbs BSA: 1.72 m2 HR: 84 bpm BP: 100 / 61 mmHg Technical Quality: Fair Exam Date: 05/17/2024 11:42 AM Exam Location: Echo Lab Patient Status: Inpatient Admit Date: 05/16/2024 Staff Ordering Physician: Oscar Ruvalcaba MD Instructional Design Consultant: Vasu Sommer RDCS Attending Provider: Oscar Ruvalcaba MD Referring Physician: Jordon DIMAS; Exam Type: CA echo dop color flow w con Study Info Indications - CHF Complete two-dimensional, color flow and Doppler transthoracic echocardiogram is performed with contrast to opacify the left ventricle and to improve the deliniation of the left ventricle endocardial borders. Contrast/Agitated Saline Contrast/Ag. Saline: Definity Amount: 2.00 ml Existing IV Access: Yes Summary 1. The left ventricle is normal in size with severely reduced systolic function. There is severe concentric left ventricular hypertrophy. The left ventricular ejection fraction is visually estimated to be 15-20%. 2. The right ventricle is normal in size with reduced systolic function. Left Ventricle The left ventricle is normal in size with severely reduced systolic function. There is severe concentric left ventricular hypertrophy. The left ventricular ejection fraction is visually estimated to be 15-20%. Right Ventricle Linear artifact in right ventricle suggestive of catheter(s), pacemaker lead(s), or ICD lead(s). The right ventricle is normal in size with reduced systolic function. Left Atria The left atrium is moderately enlarged. Right Atria The right atrium is normal size. Atrial Septum The atrial septum is not well visualized. Aortic Valve The aortic valve is trileaflet and sclerotic but opens well. There is no aortic regurgitation. Pulmonic Valve The pulmonic valve is grossly normal. There is no color Doppler evidence of pulmonic valve regurgitation. Mitral Valve The mitral valve is normal. There is mild mitral regurgitation. Tricuspid Valve The tricuspid valve is normal. There is mild tricuspid regurgitation. Pericardium/Pleural Pericardium is normal in appearance with no evidence for significant pericardial effusion. Inferior Vena Cava Inferior vena cava is not well visualized. Aorta The aortic root at the level of the sinus of Valsalva measures 2.9 cm in diameter. Left Ventricular Outflow Tract Name Value Normal LVOT 2D LVOT Diameter 2.15 cm LVOT Doppler LVOT Peak Gradient 2 mmHg LVOT Mean Gradient 1 mmHg LVOT VTI 17.45 cm LVOT VTI/AV VTI Ratio 0.62 LVOT Stroke Volume 63.32 ml LVOT CO 4.10 l/min LVOT CI 2.38 L/min/m2 Pulmonic Valve Name Value Normal RVOT Doppler RVOT Peak Gradient 1 mmHg PV Doppler PV Peak Gradient 1 mmHg Mitral Valve Name Value Normal MV Doppler MV Peak Gradient 5 mmHg MV Mean Gradient 3 mmHg MV Decel [place] 800.37 cm/s2 MV PHT 0 s MV Area (PHT) 9.03 cm2 4.00-5.00 MV Area (Cont Eq VTI) 2.75 cm2 MV Diastolic Function MV E Peak Velocity 67.25 cm/s MV A Peak Velocity 93.35 cm/s MV E/A 0.72 MV Decel Time 0 s MV Annular TDI MV E/e' (Septal) 34.56 <=8.00 MV E/e' (Lateral) 18.71 <=8.00 MV E/e' (Average) 26.64 Tricuspid Valve Name Value Normal TV Regurgitation Doppler TR Peak Velocity 300.33 cm/s TR Peak Gradient 36 mmHg Estimated PAP/RSVP RA Pressure 10 mmHg <=5 PA Systolic Pressure 46 mmHg <36 RV Systolic Pressure 46 mmHg <36 Aorta Name Value Normal Ascending Aorta Ao Root Diameter (MM) 3.55 cm Ao Root Diam Index (MM) 2.07 cm/m2 Aortic Valve Name Value Normal AV Doppler AV Peak Velocity 130.39 cm/s AV Peak Gradient 3 mmHg AV Mean Gradient 2 mmHg AV VTI 28.10 cm AV Area (Cont Eq VTI) 2.25 cm2 >=3.00 AV Area (Cont Eq Asher) 2.93 cm2 AV Regurgitation 2D LVOT Area 3.63 cm2 Ventricles Name Value Normal LV Dimensions 2D/MM IVS Diastolic Thickness (2D) 0.87 cm 0.60-1.00 LVID Diastole (2D) 5.80 cm 4.20-5.80 LVIW Diastolic Thickness (2D) 1.74 cm 0.60-1.00 LVID Systole (2D) 5.02 cm 2.50-4.00 LVOT Diameter 2.15 cm LV Mass (2D Cubed) 332.48 g 88.00-224.00 LV Mass Index (2D Cubed) 0.02 g/cm2 0.00-0.01 Relative Wall Thickness (2D) 0.60 LV Fractional Shortening/Ejection Fraction 2D/MM LV Fractional Shortening (2D) 10 % 25-43 LV EF (2D Teicholz) 22 % 52-72 LV Diastolic Volume (4C MOD) 139.25 ml LV EF (4C MOD) 20 % LV Diastolic Volume (2C MOD) 140.50 ml LV EF (2C MOD) 31 % LV Diastolic Volume (BP MOD) 141.96 ml 62.00-150.00 LV Diastolic Volume Index (BP MOD) 0.08 l/m2 0.03-0.07 LV Systolic Volume (BP MOD) 104.66 ml 21.00-61.00 LV Systolic Volume Index (BP MOD) 0.06 l/m2 0.01-0.03 LV EF (BP MOD) 26 % 52-72 LV Diastolic Length (4C) 9.51 cm LV Systolic Length (4C) 8.20 cm LV Stroke Volume (4C MOD) 28.06 ml Atria Name Value Normal LA Dimensions LA Dimension (MM) 4.26 cm 3.00-4.10 LA Volume (4C A-L) 71.11 ml LA Volume (BP A-L) 77.89 ml RA Dimensions Area (4C) 13.42 cm2 <=18.00 Report Signatures
[2024-05-17] MEDS: VANCOMYCIN 1,250 MG/NS 250 ML 1,250 MG/250 ML BAG 166.67 MG IVPB (06:47)
[2024-05-17 07:39] LABS: Estimated CRCL calculation 81 ml/min; Estimated Glomerular Filt Rate > 60
[2024-05-17 08:17] LABS: Basophils Absolute Auto 0.1 K/mm3 (0.0-0.1); Basophils Percent Auto 0.7 % (0.2-1.2); Eosinophils Absolute Auto 0.2 K/mm3 (0-0.3); Eosinophils Percent Auto 3.3 % (0-4.4); Hematocrit 32.6 % (42.0-52.0); Hemoglobin 9.6 g/dL (14.0-18.0); Immature Granulocyte Absolute 0.02 K/mm3 (0.00-0.031); Immature Granulocyte Percent A 0.3 % (0-0.5); Lymphocytes Absolute Auto 0.56 K/mm3 (0.9-3.2); Lymphocytes Percent Auto 8.3 % (18.3-44.2); Mean Corpuscular HGB Conc 29.4 g/dl (32-36); Mean Corpuscular Hemoglobin 24.9 pg (26-34); Mean Corpuscular Volume 84.7 fl (80-100); Monocytes Absolute Auto 0.6 K/mm3 (0.1-0.6); Monocytes Percent Auto 9.5 % (2.6-8.5); Neutrophils Absolute Auto 5.2 K/mm3 (1.3-6.7); Neutrophils Percent Auto 77.9 % (45.5-73.1); Platelet Count Result 357 k/mm3 (150-375); Red Blood Count 3.85 M/mm3 (4.6-6.20); Red Cell Distribution Width 17.6 % (11.5-14.5); White Blood Count 6.7 K/mm3 (4.5-10.0)
[2024-05-17 08:35] LABS: Glucose Point of Care 91 mg/dl (65-105)
[2024-05-17 08:40] LABS: Potassium 3.9 mmol/L (3.4-5.0)
[2024-05-17 08:43] LABS: Alanine Aminotransferase 9 U/L (6-50); Albumin Level 3.4 g/dL (3.5-5.1); Alkaline Phosphatase 158 U/L (38-126); Anion Gap 6 mmol/L (4-12); Aspartate Amino Transferase 25 U/L (17-59); Bilirubin,Total 0.7 mg/dL (0.2-1.3); Blood Urea Nitrogen 17 mg/dL (9-20); Calcium 8.8 mg/dL (8.4-10.2); Carbon Dioxide 37 mmol/L (22-30); Chloride 97 mmol/L (98-107); Estimated CRCL calculation 82 ml/min; Estimated Glomerular Filt Rate > 60; Glucose 98 mg/dL (65-110); Magnesium 2.2 mg/dL (1.6-2.3); Sodium 140 mmol/L (137-145)
[2024-05-17 08:43] LABS: Platelet Estimate Adequate (Adequate)
[2024-05-17 08:44] LABS: Hypochromasia 1+; Schistocytes None Seen
[2024-05-17] MEDS: EMPAGLIFLOZIN 10 MG TABLET PO (09:12)
[2024-05-17] MEDS: SERTRALINE HCL 50 MG TABLET PO (09:13)
[2024-05-17] MEDS: DULoxetine HCL 20 MG CAPSULE.DR PO (09:13)
[2024-05-17] MEDS: MAGNESIUM OXIDE 400 MG TABLET PO (09:13)
[2024-05-17] MEDS: ASPIRIN 81 MG ENTERIC TABLET PO (09:13)
[2024-05-17] MEDS: SACUBITRIL/VALSARTAN 24-26 MG TABLET 1 TAB PO (09:13)
[2024-05-17] MEDS: carvediloL 3.125 MG TABLET PO ×2 (09:14→20:19)
[2024-05-17] MEDS: CLOPIDOGREL BISULFATE 75 MG TABLET PO (09:16)
[2024-05-17] MEDS: FUROSEMIDE INJ 40 MG/4 ML VIAL IV PUSH (09:16)
[2024-05-17] MEDS: MICONAZOLE NITRATE 2% CREAM 30 GM TUBE 1 APPLIC TOPICAL (09:31)
[2024-05-17 12:00] LABS: Glucose Point of Care 101 mg/dl (65-105)
[2024-05-17] MEDS: PERFLUTREN LIPID MICROSPHERES 1.5 ML VIAL DILUTED TO 10 ML TOTAL VOLUME IV PUSH (12:25)
--- NOTE | 2024-05-17 12:37 | P.PNIM_ITS ---
Progress Note: A&P Assessment and Plan (1) Acute on chronic combined systolic and diastolic CHF (congestive heart failure): Code(s): I50.43 - Acute on chronic combined systolic (congestive) and diastolic (congestive) heart failure Status: Acute Assessment and Plan: * BNP 6800 * Furosemide 40 mg ivp BID * Echocardiogram today showed: Summary 1. The left ventricle is normal in size with severely reduced systolic function. There is severe concentric left ventricular hypertrophy. The left ventricular ejection fraction is visually estimated to be 15-20%. 2. The right ventricle is normal in size with reduced systolic function. * Cardiology consult (2) Nonischemic cardiomyopathy: Code(s): I42.8 - Other cardiomyopathies Status: Acute Assessment and Plan: * Carvedilol 3.125 mg PO q 12 * Sacubitril/Valsartan 24-26 mg 1 tab PO daily. (3) Bilateral pleural effusion: Code(s): J90 - Pleural effusion, not elsewhere classified Status: Acute Assessment and Plan: * Chest CTA showed: IMPRESSION: No pulmonary embolus. No aortic dissection or aneurysmal dilatation. Large bilateral pleural effusions, right greater than left with adjacent compressive atelectasis. * Furosemide 40 mg IVP BID * Cefepime 2 gram IVPB q12 and Doxycycline 100 mg IVPB q 12. * Pulmonology consult. (4) CAD (coronary artery disease): Code(s): I25.10 - Atherosclerotic heart disease of [place] coronary artery without angina pectoris Status: Acute Assessment and Plan: * Chest pain-free * LE dopplers negative. * Aspirin EC 81 mg PO daily. * Clopidogrel Bisulfate 75 mg PO daily. (5) Biventricular ICD (implantable cardioverter-defibrillator) in place: Code(s): Z95.810 - Presence of automatic (implantable) cardiac defibrillator Status: Chronic Assessment and Plan: * Continue to monitor (6) Paroxysmal atrial tachycardia: Code(s): I47.1 - Supraventricular tachycardia Status: Acute Assessment and Plan: * Stable (7) Diabetic ulcer of right foot associated with diabetes mellitus due to underlying condition: Qualifiers: Diabetic foot ulcer location: other Non-pressure ulcer stage: with necrosis of bone Qualified Code(s): E08.621 - Diabetes mellitus due to underlying condition with foot ulcer; 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 Code(s): E08.621 - Diabetes mellitus due to underlying condition with foot ulcer; L97.519 - Non-pressure chronic ulcer of other part of right foot with unspecified severity Status: Acute Assessment and Plan: * Wound care consult * Apply Santyl and cover with ABD. * Float heel. (8) Insulin dependent type 2 diabetes mellitus: Code(s): E11.9 - Type 2 diabetes mellitus without complications; Z79.4 - lobsterman (current) use of insulin Status: Acute Assessment and Plan: * Hypoglycemic protocol. * SSI along with home insulin. * Jardiance 10 mg PO daily. (9) Below-knee amputation of left lower extremity: Qualifiers: Encounter type: initial encounter Qualified Code(s): S88.112A - Complete traumatic amputation at level between knee and ankle, left lower leg, initial encounter Code(s): S88.112A - Complete traumatic amputation at level between knee and ankle, left lower leg, initial encounter Status: Acute Assessment and Plan: * Fall precautions (10) PAOD (peripheral arterial occlusive disease): Code(s): I77.9 - Disorder of arteries and arterioles, unspecified Status: Acute Assessment and Plan: * Unchanged Subjective Date/time seen: 05/17/24 12:37 Review of Systems Review of Systems: All systems reviewed & are unremarkable except as noted in HPI and below Exam Const: General: comfortable and no acute distress Eyes: Sclera: sclerae normal Resp: Effort & Inspection: normal respiratory effort Auscultation: diminished lung sounds Cardio: Rate: regular rate Rhythm: regular rhythm GI: GI Palp: Yes Soft to palpation Auscultation: normal bowel sounds Skin: Other: multiple scabbed areas to right leg. Right foot diabetic ulcer. Neuro: Speech: normal speech Extrem: General: no pedal edema Other: Below the knee left sided amputation Psych: Mental Status: mental status grossly normal Affect: normal affect Objective Data Vital Signs Vital Signs: Vital Signs - 24 hr 05/16/24 15:54 05/16/24 17:05 05/16/24 18:00 Temperature 97.7 F Pulse Rate 100 93 91 Respiratory Rate 28 H 16 19 Blood Pressure 100/69 106/76 111/73 Pulse Oximetry 100 100 100 Oxygen Delivery Nasal Cannula Oxygen Flow Rate 3 05/16/24 18:50 05/16/24 22:23 05/16/24 23:00 Temperature 97.1 F L Pulse Rate 83 79 85 Respiratory Rate 16 14 16 Blood Pressure 104/80 104/72 100/64 Pulse Oximetry 100 100 100 Oxygen Delivery Oxygen Flow Rate 05/16/24 23:18 05/17/24 06:00 05/17/24 08:00 Temperature 97.1 F L Pulse Rate 85 84 Respiratory Rate 16 12 Blood Pressure 100/61 Pulse Oximetry 94 100 100 Oxygen Delivery Nasal Cannula Nasal Cannula Oxygen Flow Rate 3 2 05/17/24 09:14 Temperature Pulse Rate 79 Respiratory Rate Blood Pressure Pulse Oximetry Oxygen Delivery Oxygen Flow Rate Intake/Output Intake/Output: Intake & Output 05/14/24 05/15/24 05/16/24 05/17/24 23:59 23:59 23:59 23:59 Intake Total 650 400 Output Total 700 Balance 650 -300 Meds/Results Medications: Active Medications Generic Name Dose Route Start Last Admin Trade Name Freq PRN Reason Stop Dose Admin Albuterol/Ipratropium 3 ml 05/17/24 01:19 Ipratropium 0.5 Mg/Albuterol Sulfate 2.5 Mg Ampul.Neb 3 Ml INHALATION QIDRT PRN shortness of breath or wheezing Aspirin 81 mg 05/17/24 09:00 05/17/24 09:13 Aspirin 81 Mg Enteric Tablet PO 81 mg DAILY CRISTI Administration Carvedilol 3.125 mg 05/17/24 09:00 05/17/24 09:14 Carvedilol 3.125 Mg Tablet PO 3.125 mg Q12HR CRISTI Administration Clopidogrel Bisulfate 75 mg 05/17/24 09:00 05/17/24 09:16 Clopidogrel Bisulfate 75 Mg Tablet PO 75 mg DAILY CRISTI Administration Dextrose 12.5 gm 05/17/24 08:22 Dextrose 50% 25 Gm/50 Ml Syringe IV PUSH PRN PRN Hypoglycemia Protocol Duloxetine HCl 20 mg 05/17/24 09:00 05/17/24 09:13 Duloxetine Hcl 20 Mg Capsule.Dr PO 20 mg DAILY CRISTI Administration Empagliflozin 10 mg 05/17/24 09:00 05/17/24 09:12 Empagliflozin 10 Mg Tablet PO 10 mg DAILY CRISTI Administration Furosemide 40 mg 05/17/24 09:00 05/17/24 09:16 Furosemide Inj 40 Mg/4 Ml Vial IV PUSH 40 mg BID CRISTI Administration Glucagon 1 mg 05/17/24 08:22 Glucagon For Inj 1 Mg Vial IM PRN PRN Hypoglycemia Protocol Glucose 15 gm 05/17/24 08:22 Glucose Oral Gel 15 Gm Of Glucse In 37.5 Gm Tube PO PRN PRN Hypoglycemia Protocol Dextrose 1,000 mls @ 100 mls/hr 05/17/24 08:22 Dextrose 5% 1,000 Ml IVPB PRN PRN Hypoglycemia Protocol Cefepime HCl 2 gm in 50 mls @ 100 mls/hr 05/17/24 10:00 Maxipime 2 Gm/Ns 50 Ml IVPB Q12HR CRISTI Doxycycline Hyclate 100 mg in 100 mls @ 100 mls/hr 05/17/24 10:00 Vibramycin 100 Mg/Ns 100 Ml IVPB 05/21/24 09:59 Q12HR CRISTI Insulin Aspart 3 units 05/17/24 08:00 05/17/24 09:27 Insulin Aspart (*Bkc) 100 Units/Ml 0.05 units/kg (3 units) Not Given SUB-Q TIDWM [facility] Insulin Aspart 2 - 5 units 05/17/24 12:00 Insulin Aspart (*Bkc) 100 Units/Ml SUB-Q TIDWM [facility] Protocol Insulin Aspart 1 - 2 units 05/17/24 21:00 Insulin Aspart (*Bkc) 100 Units/Ml SUB-Q HS [facility] Protocol Insulin Glargine 15 units 05/17/24 21:00 Insulin Glargine (*Bkc) 100 Units/Ml SUB-Q HS [facility] Magnesium Oxide 400 mg 05/17/24 09:00 05/17/24 09:13 Magnesium Oxide 400 Mg Tablet PO 400 mg DAILY CRISTI Administration Miconazole Nitrate 1 applic 05/17/24 09:00 05/17/24 09:31 Miconazole Nitrate 2% Cream 30 Gm Tube TOPICAL 1 applic BID CRISTI Administration Perflutren Lipid Microsphere 0 ml 05/17/24 01:20 Perflutren Lipid Microspheres 1.5 Ml Vial Diluted To 10 Ml Total Volume IV PUSH 05/20/24 01:20 ONCE PRN adequate visualization Protocol Sacubitril/Valsartan 1 tab 05/17/24 09:00 05/17/24 09:13 Sacubitril/Valsartan 24-26 Mg Tablet PO 1 tab DAILY CRISTI Administration Sertraline HCl 50 mg 05/17/24 09:00 05/17/24 09:13 Sertraline Hcl 50 Mg Tablet PO 50 mg DAILY CRISTI Administration Radiology Results: ITS Impressions Chest X-Ray 05/16/24 17:44 IMPRESSION: Large bilateral pleural effusions, as detailed above. Chest CTA 05/16/24 19:58 IMPRESSION: No pulmonary embolus. No aortic dissection or aneurysmal dilatation. Large bilateral pleural effusions, right greater than left with adjacent compressive atelectasis. Venous Doppler Study 05/17/24 11:04 IMPRESSION: 1. No deep venous thrombosis in either lower limb. Labs Labs: Laboratory Results - last 24 hr 05/16/24 05/16/24 05/16/24 16:27 17:00 17:00 WBC 6.7 RBC 4.05 L Hgb 10.1 L Hct 33.5 L MCV 82.7 MCH 24.9 L MCHC 30.1 L RDW 17.6 H Plt Count 408 H MPV 11.0 H Immature Gran % (Auto) 0.3 Neut % (Auto) 79.8 H Lymph % (Auto) 7.9 L [place] % (Auto) 9.4 H Eos % (Auto) 1.9 Baso % (Auto) 0.7 Lymph # (Auto) 0.53 L [place] # (Auto) 0.6 Eos # (Auto) 0.1 Baso # (Auto) 0.1 Abs Immat Gran (auto) 0.02 Absolute Neuts (auto) 5.3 Absolute Nucleated RBC 0.000 Nucleated RBC % 0.0 Platelet Estimate Hypochromasia Schistocytes PT 14.2 INR 1.1 APTT 32.9 D-Dimer 3.83 H Puncture Site Left radial ABG pH 7.485 H ABG pCO2 49.1 H ABG pO2 104.1 H ABG PO2/FiO2 Ratio 3.25 ABG HCO3 36.2 H ABG O2 Saturation 98.0 ABG O2 Content 14.4 L ABG Base Excess 11.3 A-a Gradient 66.6 Oxyhemoglobin 97.5 Total Hemoglobin 10.4 L O2 Delivery Device Nasal cannula O2 Liters/Min 3.0 FiO2 32 Sodium Cancelled 139 Potassium Cancelled Chloride Carbon Dioxide Anion Gap BUN Creatinine Estim Creat Clear Calc Estimated GFR Glucose POC Capillary Glucose Lactic Acid Calcium Phosphorus Magnesium Total Bilirubin AST ALT Alkaline Phosphatase Troponin I NT-Pro-B Natriuret Pep Total Protein Albumin Lipase TSH (Reflex) Free T4 Total T3 Urine Color Urine Appearance Urine pH Ur Specific [place] Urine Protein Urine Glucose (UA) Urine Ketones Ur Blood (Man) Urine Nitrate Urine Bilirubin Urine Urobilinogen Leukocyte Esterase Rfl Nasal MRSA (PCR) Influenza A (RT-PCR) Influenza B (RT-PCR) RSV (RT-PCR) SARS-CoV-2 RNA (RT-PCR) 05/16/24 05/16/24 05/16/24 17:00 17:00 17:00 WBC RBC Hgb Hct MCV MCH MCHC RDW Plt Count MPV Immature Gran % (Auto) Neut % (Auto) Lymph % (Auto) [place] % (Auto) Eos % (Auto) Baso % (Auto) Lymph # (Auto) [place] # (Auto) Eos # (Auto) Baso # (Auto) Abs Immat Gran (auto) Absolute Neuts (auto) Absolute Nucleated RBC Nucleated RBC % Platelet Estimate Hypochromasia Schistocytes PT INR APTT D-Dimer Puncture Site ABG pH ABG pCO2 ABG pO2 ABG PO2/FiO2 Ratio ABG HCO3 ABG O2 Saturation ABG O2 Content ABG Base Excess A-a Gradient Oxyhemoglobin Total Hemoglobin O2 Delivery Device O2 Liters/Min FiO2 Sodium Potassium 4.5 Chloride Cancelled 95 L Carbon Dioxide Cancelled 38 H Anion Gap Cancelled BUN Creatinine Estim Creat Clear Calc Estimated GFR Glucose POC Capillary Glucose Lactic Acid Calcium Phosphorus Magnesium Total Bilirubin AST ALT Alkaline Phosphatase Troponin I NT-Pro-B Natriuret Pep Total Protein Albumin Lipase TSH (Reflex) Free T4 Total T3 Urine Color Urine Appearance Urine pH Ur Specific [place] Urine Protein Urine Glucose (UA) Urine Ketones Ur Blood (Man) Urine Nitrate Urine Bilirubin Urine Urobilinogen Leukocyte Esterase Rfl Nasal MRSA (PCR) Influenza A (RT-PCR) Influenza B (RT-PCR) RSV (RT-PCR) SARS-CoV-2 RNA (RT-PCR) 05/16/24 05/16/24 05/16/24 17:00 17:00 17:00 WBC RBC Hgb Hct MCV MCH MCHC RDW Plt Count MPV Immature Gran % (Auto) Neut % (Auto) Lymph % (Auto) [place] % (Auto) Eos % (Auto) Baso % (Auto) Lymph # (Auto) [place] # (Auto) Eos # (Auto) Baso # (Auto) Abs Immat Gran (auto) Absolute Neuts (auto) Absolute Nucleated RBC Nucleated RBC % Platelet Estimate Hypochromasia Schistocytes PT INR APTT D-Dimer Puncture Site ABG pH ABG pCO2 ABG pO2 ABG PO2/FiO2 Ratio ABG HCO3 ABG O2 Saturation ABG O2 Content ABG Base Excess A-a Gradient Oxyhemoglobin Total Hemoglobin O2 Delivery Device O2 Liters/Min FiO2 Sodium Potassium Chloride Carbon Dioxide Anion Gap 6 BUN Cancelled 21 H Creatinine Cancelled 0.63 L Estim Creat Clear Calc Cancelled Estimated GFR Glucose POC Capillary Glucose Lactic Acid Calcium Phosphorus Magnesium Total Bilirubin AST ALT Alkaline Phosphatase Troponin I NT-Pro-B Natriuret Pep Total Protein Albumin Lipase TSH (Reflex) Free T4 Total T3 Urine Color Urine Appearance Urine pH Ur Specific [place] Urine Protein Urine Glucose (UA) Urine Ketones Ur Blood (Man) Urine Nitrate Urine Bilirubin Urine Urobilinogen Leukocyte Esterase Rfl Nasal MRSA (PCR) Influenza A (RT-PCR) Influenza B (RT-PCR) RSV (RT-PCR) SARS-CoV-2 RNA (RT-PCR) 05/16/24 05/16/24 05/16/24 17:00 17:00 17:00 WBC RBC Hgb Hct MCV MCH MCHC RDW Plt Count MPV Immature Gran % (Auto) Neut % (Auto) Lymph % (Auto) [place] % (Auto) Eos % (Auto) Baso % (Auto) Lymph # (Auto) [place] # (Auto) Eos # (Auto) Baso # (Auto) Abs Immat Gran (auto) Absolute Neuts (auto) Absolute Nucleated RBC Nucleated RBC % Platelet Estimate Hypochromasia Schistocytes PT INR APTT D-Dimer Puncture Site ABG pH ABG pCO2 ABG pO2 ABG PO2/FiO2 Ratio ABG HCO3 ABG O2 Saturation ABG O2 Content ABG Base Excess A-a Gradient Oxyhemoglobin Total Hemoglobin O2 Delivery Device O2 Liters/Min FiO2 Sodium Potassium Chloride Carbon Dioxide Anion Gap BUN Creatinine Estim Creat Clear Calc 80 Estimated GFR Cancelled > 60 Glucose Cancelled 207 H POC Capillary Glucose Lactic Acid 1.6 Calcium Cancelled Phosphorus Magnesium Total Bilirubin AST ALT Alkaline Phosphatase Troponin I NT-Pro-B Natriuret Pep Total Protein Albumin Lipase TSH (Reflex) Free T4 Total T3 Urine Color Urine Appearance Urine pH Ur Specific [place] Urine Protein Urine Glucose (UA) Urine Ketones Ur Blood (Man) Urine Nitrate Urine Bilirubin Urine Urobilinogen Leukocyte Esterase Rfl Nasal MRSA (PCR) Influenza A (RT-PCR) Influenza B (RT-PCR) RSV (RT-PCR) SARS-CoV-2 RNA (RT-PCR) 05/16/24 05/16/24 05/16/24 17:00 17:00 17:00 WBC RBC Hgb Hct MCV MCH MCHC RDW Plt Count MPV Immature Gran % (Auto) Neut % (Auto) Lymph % (Auto) [place] % (Auto) Eos % (Auto) Baso % (Auto) Lymph # (Auto) [place] # (Auto) Eos # (Auto) Baso # (Auto) Abs Immat Gran (auto) Absolute Neuts (auto) Absolute Nucleated RBC Nucleated RBC % Platelet Estimate Hypochromasia Schistocytes PT INR APTT D-Dimer Puncture Site ABG pH ABG pCO2 ABG pO2 ABG PO2/FiO2 Ratio ABG HCO3 ABG O2 Saturation ABG O2 Content ABG Base Excess A-a Gradient Oxyhemoglobin Total Hemoglobin O2 Delivery Device O2 Liters/Min FiO2 Sodium Potassium Chloride Carbon Dioxide Anion Gap BUN Creatinine Estim Creat Clear Calc Estimated GFR Glucose POC Capillary Glucose Lactic Acid Calcium 9.0 Phosphorus 4.0 Magnesium 2.3 Total Bilirubin Cancelled 0.8 AST Cancelled 29 ALT Cancelled Alkaline Phosphatase Troponin I NT-Pro-B Natriuret Pep Total Protein Albumin Lipase TSH (Reflex) Free T4 Total T3 Urine Color Urine Appearance Urine pH Ur Specific [place] Urine Protein Urine Glucose (UA) Urine Ketones Ur Blood (Man) Urine Nitrate Urine Bilirubin Urine Urobilinogen Leukocyte Esterase Rfl Nasal MRSA (PCR) Influenza A (RT-PCR) Influenza B (RT-PCR) RSV (RT-PCR) SARS-CoV-2 RNA (RT-PCR) 05/16/24 05/16/24 05/16/24 17:00 17:00 17:00 WBC RBC Hgb Hct MCV MCH MCHC RDW Plt Count MPV Immature Gran % (Auto) Neut % (Auto) Lymph % (Auto) [place] % (Auto) Eos % (Auto) Baso % (Auto) Lymph # (Auto) [place] # (Auto) Eos # (Auto) Baso # (Auto) Abs Immat Gran (auto) Absolute Neuts (auto) Absolute Nucleated RBC Nucleated RBC % Platelet Estimate Hypochromasia Schistocytes PT INR APTT D-Dimer Puncture Site ABG pH ABG pCO2 ABG pO2 ABG PO2/FiO2 Ratio ABG HCO3 ABG O2 Saturation ABG O2 Content ABG Base Excess A-a Gradient Oxyhemoglobin Total Hemoglobin O2 Delivery Device O2 Liters/Min FiO2 Sodium Potassium Chloride Carbon Dioxide Anion Gap BUN Creatinine Estim Creat Clear Calc Estimated GFR Glucose POC Capillary Glucose Lactic Acid Calcium Phosphorus Magnesium Total Bilirubin AST ALT 11 Alkaline Phosphatase Cancelled 153 H Troponin I < 0.012 NT-Pro-B Natriuret Pep Cancelled 6800 H Total Protein Cancelled Albumin Lipase TSH (Reflex) Free T4 Total T3 Urine Color Urine Appearance Urine pH Ur Specific [place] Urine Protein Urine Glucose (UA) Urine Ketones Ur Blood (Man) Urine Nitrate Urine Bilirubin Urine Urobilinogen Leukocyte Esterase Rfl Nasal MRSA (PCR) Influenza A (RT-PCR) Influenza B (RT-PCR) RSV (RT-PCR) SARS-CoV-2 RNA (RT-PCR) 05/16/24 05/16/24 05/16/24 17:00 17:00 17:04 WBC RBC Hgb Hct MCV MCH MCHC RDW Plt Count MPV Immature Gran % (Auto) Neut % (Auto) Lymph % (Auto) [place] % (Auto) Eos % (Auto) Baso % (Auto) Lymph # (Auto) [place] # (Auto) Eos # (Auto) Baso # (Auto) Abs Immat Gran (auto) Absolute Neuts (auto) Absolute Nucleated RBC Nucleated RBC % Platelet Estimate Hypochromasia Schistocytes PT INR APTT D-Dimer Puncture Site ABG pH ABG pCO2 ABG pO2 ABG PO2/FiO2 Ratio ABG HCO3 ABG O2 Saturation ABG O2 Content ABG Base Excess A-a Gradient Oxyhemoglobin Total Hemoglobin O2 Delivery Device O2 Liters/Min FiO2 Sodium Potassium Chloride Carbon Dioxide Anion Gap BUN Creatinine Estim Creat Clear Calc Estimated GFR Glucose POC Capillary Glucose Lactic Acid Calcium Phosphorus Magnesium Total Bilirubin AST ALT Alkaline Phosphatase Troponin I NT-Pro-B Natriuret Pep Total Protein 8.0 Albumin Cancelled 3.6 Lipase 12 L TSH (Reflex) 5.380 H Free T4 1.63 Total T3 1.10 Urine Color Yellow Urine Appearance Clear Urine pH 6.0 Ur Specific [place] 1.021 Urine Protein Negative Urine Glucose (UA) 3+ H Urine Ketones Negative Ur Blood (Man) Negative Urine Nitrate Negative Urine Bilirubin Negative Urine Urobilinogen 1.0 Leukocyte Esterase Rfl Negative Nasal MRSA (PCR) Influenza A (RT-PCR) Negative Influenza B (RT-PCR) Negative RSV (RT-PCR) Negative SARS-CoV-2 RNA (RT-PCR) Negative 05/16/24 05/16/24 05/17/24 18:40 20:21 06:55 WBC 6.7 RBC 3.85 L Hgb 9.6 L Hct 32.6 L MCV 84.7 MCH 24.9 L MCHC 29.4 L RDW 17.6 H Plt Count 357 MPV 11.0 H Immature Gran % (Auto) 0.3 Neut % (Auto) 77.9 H Lymph % (Auto) 8.3 L [place] % (Auto) 9.5 H Eos % (Auto) 3.3 Baso % (Auto) 0.7 Lymph # (Auto) 0.56 L [place] # (Auto) 0.6 Eos # (Auto) 0.2 Baso # (Auto) 0.1 Abs Immat Gran (auto) 0.02 Absolute Neuts (auto) 5.2 Absolute Nucleated RBC 0.000 Nucleated RBC % 0.0 Platelet Estimate Adequate Hypochromasia 1+ Schistocytes None seen PT INR APTT D-Dimer Puncture Site ABG pH ABG pCO2 ABG pO2 ABG PO2/FiO2 Ratio ABG HCO3 ABG O2 Saturation ABG O2 Content ABG Base Excess A-a Gradient Oxyhemoglobin Total Hemoglobin O2 Delivery Device O2 Liters/Min FiO2 Sodium Potassium Chloride Carbon Dioxide Anion Gap BUN Creatinine Estim Creat Clear Calc Estimated GFR Glucose POC Capillary Glucose Lactic Acid Calcium Phosphorus Magnesium Total Bilirubin AST ALT Alkaline Phosphatase Troponin I 0.013 NT-Pro-B Natriuret Pep Total Protein Albumin Lipase TSH (Reflex) Free T4 Total T3 Urine Color Urine Appearance Urine pH Ur Specific [place] Urine Protein Urine Glucose (UA) Urine Ketones Ur Blood (Man) Urine Nitrate Urine Bilirubin Urine Urobilinogen Leukocyte Esterase Rfl Nasal MRSA (PCR) Not detected Influenza A (RT-PCR) Influenza B (RT-PCR) RSV (RT-PCR) SARS-CoV-2 RNA (RT-PCR) 05/17/24 05/17/24 05/17/24 06:58 06:58 06:58 WBC RBC Hgb Hct MCV MCH MCHC RDW Plt Count MPV Immature Gran % (Auto) Neut % (Auto) Lymph % (Auto) [place] % (Auto) Eos % (Auto) Baso % (Auto) Lymph # (Auto) [place] # (Auto) Eos # (Auto) Baso # (Auto) Abs Immat Gran (auto) Absolute Neuts (auto) Absolute Nucleated RBC Nucleated RBC % Platelet Estimate Hypochromasia Schistocytes PT INR APTT D-Dimer Puncture Site ABG pH ABG pCO2 ABG pO2 ABG PO2/FiO2 Ratio ABG HCO3 ABG O2 Saturation ABG O2 Content ABG Base Excess A-a Gradient Oxyhemoglobin Total Hemoglobin O2 Delivery Device O2 Liters/Min FiO2 Sodium 140 Potassium 3.9 Chloride 97 L Carbon Dioxide 37 H Anion Gap 6 BUN 17 Creatinine 0.62 L 0.61 L Estim Creat Clear Calc 81 82 Estimated GFR > 60 Glucose POC Capillary Glucose Lactic Acid Calcium Phosphorus Magnesium Total Bilirubin AST ALT Alkaline Phosphatase Troponin I NT-Pro-B Natriuret Pep Total Protein Albumin Lipase TSH (Reflex) Free T4 Total T3 Urine Color Urine Appearance Urine pH Ur Specific [place] Urine Protein Urine Glucose (UA) Urine Ketones Ur Blood (Man) Urine Nitrate Urine Bilirubin Urine Urobilinogen Leukocyte Esterase Rfl Nasal MRSA (PCR) Influenza A (RT-PCR) Influenza B (RT-PCR) RSV (RT-PCR) SARS-CoV-2 RNA (RT-PCR) 05/17/24 05/17/24 05/17/24 06:58 07:36 11:21 WBC RBC Hgb Hct MCV MCH MCHC RDW Plt Count MPV Immature Gran % (Auto) Neut % (Auto) Lymph % (Auto) [place] % (Auto) Eos % (Auto) Baso % (Auto) Lymph # (Auto) [place] # (Auto) Eos # (Auto) Baso # (Auto) Abs Immat Gran (auto) Absolute Neuts (auto) Absolute Nucleated RBC Nucleated RBC % Platelet Estimate Hypochromasia Schistocytes PT INR APTT D-Dimer Puncture Site ABG pH ABG pCO2 ABG pO2 ABG PO2/FiO2 Ratio ABG HCO3 ABG O2 Saturation ABG O2 Content ABG Base Excess A-a Gradient Oxyhemoglobin Total Hemoglobin O2 Delivery Device O2 Liters/Min FiO2 Sodium Potassium Chloride Carbon Dioxide Anion Gap BUN Creatinine Estim Creat Clear Calc Estimated GFR > 60 Glucose 98 POC Capillary Glucose 91 101 Lactic Acid Calcium 8.8 Phosphorus Magnesium 2.2 Total Bilirubin 0.7 AST 25 ALT 9 Alkaline Phosphatase 158 H Troponin I NT-Pro-B Natriuret Pep Total Protein 8.0 Albumin 3.4 L Lipase TSH (Reflex) Free T4 Total T3 Urine Color Urine Appearance Urine pH Ur Specific [place] Urine Protein Urine Glucose (UA) Urine Ketones Ur Blood (Man) Urine Nitrate Urine Bilirubin Urine Urobilinogen Leukocyte Esterase Rfl Nasal MRSA (PCR) Influenza A (RT-PCR) Influenza B (RT-PCR) RSV (RT-PCR) SARS-CoV-2 RNA (RT-PCR) Quality VTE Prophylaxis VTE prophylaxis: mechanical ordered
--- NOTE | 2024-05-17 12:44 | IVDEFINITY ---
Prior to administration of IV Definity the patient was educated on the risks and benefits of the imaging enhancing agent including potential adverse side effects. The patient verbalized understanding. Allergies were verified. No exclusion criteria were identified and at least one of the following inclusion criteria were met: 1) physician request, 2) patient technically difficult to image (per the [place] [employer] guidelines of two or more segments not discernable within the apical view), or 3) questionable left ventricular function. ?
[2024-05-17] MEDS: DOXYCYCLINE 100 MG/NS 100 ML 100 MG/100 ML BAG IVPB ×2 (13:32→20:54)
[2024-05-17] MEDS: CEFEPIME 2 GM/NS 50 ML 2 GM/50 ML BAG IVPB ×2 (13:33→20:20)
[2024-05-17] MEDS: INSULIN ASPART (*BKC) 100 UNITS/ML SUB-Q ×2 (13:33→17:49)
[2024-05-17 16:38] LABS: Glucose Point of Care 153 mg/dl (65-105)
[2024-05-17] MEDS: COLLAGENASE OINT 30 GM TUBE 1 APPLIC TOPICAL (17:43)
--- NOTE | 2024-05-17 20:53 | PM.CNPUL ---
Assessment and Plan Assessment and plan (1) Bilateral pleural effusion: Code(s): J90 - Pleural effusion, not elsewhere classified Status: Acute Assessment and Plan: He has bilateral pleural effusions, R>L, due to acute exacerbation of systolic CHF; HFrEF. He has had thoracenteses in the past. I talked with him about having 1 tomorrow and he agrees with having this. He will get therapeutic relief and we will be able to use the fluid for diagnostic testing. I agree with his Lasix 40 mg b.i.d.. He is on empiric antibiotics but he does not have any symptoms to suggest that he is infected. We can deescalate the antibiotics after we can review the pleural fluid results. (2) Respiratory alkalosis: Code(s): E87.3 - Alkalosis Status: Acute Assessment and Plan: ABGs consistent with acute metabolic alkalosis with partial respiratory compensation, adequate oxygenation on 3 liters/minute. Plan plan: thoracentesis tomorrow, diagnostic and therapeutic goals lab placed, pt is NPO after midnight. He has had this procedure before, pleural fluid was due to CHF. O2 to maintain saturation 90-94%. Will follow with you. History of Present Illness History of Present Illness Consult date: 05/17/24 Requesting physician: Julia Nj APRN Chief complaint: Large pleural effusions Narrative: pt was seen May 17, 2024 at 21:15 Room 322-1 for large pleural effusions, R>L with compressive atelectasis NEW : Dimitry Pa is a 73-year-old man admitted with increased shortness of breath. He lives in a alf. His chest x-ray showed right greater than left pleural effusions and his CTA on 05/16/2024 also shows this. See image below. He has not had systemic symptoms such as fevers, chills, nausea with vomiting, diarrhea, chest pain or productive cough. He is a never smoker. He had a thoracentesis several years ago, twice, due to CHF. [place], wants to get back so he can pay his credit card and be with his friends. He says that no one at the [place] knows how much water he can drink. I told him that he needs this information from his big data solutions architect or primary care doctor. PMH : Peripheral vascular disease, insulin-dependent diabetes mellitus, hypertension, chronic right foot ulcer, left [id number] amputation. Pacemaker. hx of PAT and NSVT. Non-ischemic cardiomyopathy, hyperlipidemia, HFrEF. DATA * May 17, white blood cell count 6.7 with 78% neutrophils, hemoglobin 9.6, hematocrit 32.6%, platelet count 357 k. * May 16, 2024; arterial blood gas on 3 L O2 Nasal Cannula = pH 7.48, pCO2 49.1, PO2 104, HC03 36.2 elevated consistent with acute metabolic alkalosis with partial respiratory acidosis compensation, saturation 98%. * May 17, 2024; sodium 140, potassium 3.9, chloride 97, carbon oxide 37, BUN 17, creatinine 0.61 low. Estimated GFR greater than 60. Glucose 98. Calcium 8.8. Magnesium 2.2. Bilirubin 0.7. AST 25. ALT 9. Alkaline phosphatase mildly elevated 158, upper limit normal 126 U/L; troponin 0.013, normal. Protein 8.0. Albumin 3.4 borderline low. * 05/16/24; CTA = FINDINGS: No filling defect is identified within the main or proximal pulmonary arteries. The thoracic aorta is unremarkable, without aneurysmal dilatation or dissection. The heart is enlarged, without pericardial effusion. Large bilateral pleural effusions are identified, right greater than left with adjacent compressive atelectasis. Within the upper abdomen: Reflux of intravenous contrast is identified within the hepatic veins. Densely calcified atherosclerotic disease is noted. Fecal stasis is also present. Diffuse bony demineralization within the thoracic spine without acute compression fracture. IMPRESSION: No pulmonary embolus. No aortic dissection or aneurysmal dilatation. Large bilateral pleural effusions, right greater than left with adjacent compressive atelectasis. Review of Systems Review of Systems: All systems reviewed & are unremarkable except as noted in HPI and below [facility] Past Medical History Medical History Orthostatic hypotension Depression Complete heart block Nonsustained ventricular tachycardia Diabetic peripheral neuropathy Insulin dependent type 2 diabetes mellitus Paroxysmal atrial tachycardia Heart failure with reduced ejection fraction Nonischemic cardiomyopathy Vitamin D deficiency Dyslipidemia Essential (primary) hypertension Peripheral arterial disease Apical mural thrombus Shoulder fracture, left Surgical History Surgical History History of left below knee amputation History of complete ray amputation of third toe of right foot (05/2020) Due to osteomyelitis. History of permanent cardiac pacemaker placement (07/2019) Medtronic BiV-ICD placed at [facility]. Family History Family History Other No problems noted. Sibling Acute myocardial infarction Mother Lung cancer Social History Social History Social History: Lives alone in an apartment. He does not drive. Works for [employer]. Rare alcohol use. Lifelong nonsmoker. No drug use. No pets Surrogate medical decision maker: Adrianne Pa, niece. Code status: Full code. Smoking status: Former smoker Tobacco type: cigarettes Second hand tobacco smoke exposure: No Alcohol intake: former Substance use: never Substance use type: does not use Other substance usage details: once a year has an expensive bottle of alcohol Do You Feel Safe in your Home?: Yes Lack of Transportation: No Lack of Food: Never True Current Housing: I Have Housing Concerned About Future Housing: No Difficulty Paying Gas/Electric Bills: No Difficulty Paying for Meds: No Currently Unemployed: No Education: High School Diploma/GED Difficulty w/ Childcare or Family Care: No Living arrangements: with family Additional living arrangements comments: Lives with [id number]. . His in only daughter were killed in a car accident. 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 Spiritual care concerns: No Agree to blood products: Yes Meds Home Medications and Allergies Home Medications ?Medication ?Instructions ?Recorded ?Confirmed ?Type empagliflozin 10 mg tablet 10 mg PO DAILY #30 tabs 05/26/21 05/16/24 Rx (Jardiance) carvedilol 3.125 mg tablet (Coreg) 3.125 mg PO Q12H 30 days #60 tabs 07/28/23 05/16/24 Rx cholecalciferol (vitamin D3) 25 1,000 unit PO DAILY #30 tabs 07/28/23 05/16/24 Rx mcg (1,000 unit) tablet (Vitamin D3) magnesium oxide 400 mg (241.3 mg 500 mg (1.25 x 400 mg (241.3 mg 07/28/23 05/16/24 Rx magnesium) tablet magnesium)) PO DAILY #30 tabs duloxetine 20 mg capsule,delayed 20 mg PO DAILY 08/25/23 05/16/24 History release aspirin 81 mg capsule 81 mg PO DAILY 10/09/23 05/16/24 History furosemide 40 mg tablet 40 mg PO BID 10/09/23 05/16/24 History sacubitril 24 mg-valsartan 26 mg 1 tablet PO DAILY 10/09/23 05/16/24 History tablet (Entresto) miconazole nitrate 2 % topical 1 applic topical BID #28 grams 10/12/23 05/16/24 Rx cream clopidogrel 75 mg tablet 75 mg PO DAILY 05/16/24 05/16/24 History glucagon 1 mg solution for 1 mg IM .COMPLEX PRN hypoglycemia 05/16/24 05/17/24 History injection (Glucagon Emergency Kit) insulin glargine 100 unit/mL (3 15 unit subcut HS 05/16/24 05/17/24 History mL) subcutaneous pen (Lantus Solostar U-100 Insulin) insulin lispro 100 unit/mL 1 sliding scale dose subcut AC 05/16/24 05/17/24 History subcutaneous pen (Humalog KwikPen (U-100) Insulin) ipratropium 0.5 mg-albuterol 3 mg 3 ml inhalation QID PRN shortness 05/16/24 05/17/24 History (2.5 mg base)/3 mL nebulization of breath or wheezing soln sertraline 50 mg tablet 50 mg PO DAILY 05/16/24 05/16/24 History Allergies Allergy/AdvReac Type Severity Reaction Status Date / Time Penicillins Allergy Mild Unknown Verified 10/09/23 00:14 Vital Signs Vital Signs - 24 hr 05/16/24 22:23 05/16/24 23:00 05/16/24 23:18 Temperature 36.2 C L Pulse Rate 79 85 85 Respiratory Rate 14 16 16 Blood Pressure 104/72 100/64 Pulse Oximetry 100 100 94 Oxygen Delivery Nasal Cannula Oxygen Flow Rate 3 05/17/24 06:00 05/17/24 08:00 05/17/24 09:14 Temperature 36.2 C L Pulse Rate 84 79 Respiratory Rate 12 Blood Pressure 100/61 Pulse Oximetry 100 100 Oxygen Delivery Nasal Cannula Oxygen Flow Rate 2 05/17/24 14:00 05/17/24 20:19 Temperature 36.6 C Pulse Rate 82 68 Respiratory Rate 18 Blood Pressure 92/55 L Pulse Oximetry 100 Oxygen Delivery Oxygen Flow Rate Exam Narrative: I did not perform a complete exam this evening, will perform tomorrow. He was able to speak in full sentences, wearing O2 nasal cannula with saturation 100%. Results Laboratory Findings 05/17/24 06:55 05/17/24 06:58 ABG, PT/INR, D-dimer: ABG ABG pH 7.485 (7.350-7.450) H 05/16/24 16:27 ABG pCO2 49.1 mmHg (35.0-45.0) H 05/16/24 16:27 ABG pO2 104.1 mmHg (80.0-100.0) H 05/16/24 16:27 ABG O2 Saturation 98.0 % (95.0-100.0) 05/16/24 16:27 PT/INR, D-dimer PT 14.2 Seconds (11.1-14.7) 05/16/24 17:00 INR 1.1 05/16/24 17:00 D-Dimer 3.83 ug/mL (<0.48) H 05/16/24 17:00 Abnormal lab findings: Abnormal Labs 05/16/24 05/16/24 05/16/24 16:27 17:00 17:04 RBC 4.05 L Hgb 10.1 L Hct 33.5 L MCH 24.9 L MCHC 30.1 L RDW 17.6 H Plt Count 408 H MPV 11.0 H Neut % (Auto) 79.8 H Lymph % (Auto) 7.9 L [place] % (Auto) 9.4 H Lymph # (Auto) 0.53 L D-Dimer 3.83 H ABG pH 7.485 H ABG pCO2 49.1 H ABG pO2 104.1 H ABG HCO3 36.2 H ABG O2 Content 14.4 L Total Hemoglobin 10.4 L Chloride 95 L Carbon Dioxide 38 H BUN 21 H Creatinine 0.63 L Glucose 207 H POC Capillary Glucose Alkaline Phosphatase 153 H NT-Pro-B Natriuret Pep 6800 H Albumin Lipase 12 L TSH (Reflex) 5.380 H Urine Glucose (UA) 3+ H 05/17/24 05/17/24 05/17/24 06:55 06:58 06:58 RBC 3.85 L Hgb 9.6 L Hct 32.6 L MCH 24.9 L MCHC 29.4 L RDW 17.6 H Plt Count MPV 11.0 H Neut % (Auto) 77.9 H Lymph % (Auto) 8.3 L [place] % (Auto) 9.5 H Lymph # (Auto) 0.56 L D-Dimer ABG pH ABG pCO2 ABG pO2 ABG HCO3 ABG O2 Content Total Hemoglobin Chloride 97 L Carbon Dioxide 37 H BUN Creatinine 0.62 L 0.61 L Glucose POC Capillary Glucose Alkaline Phosphatase 158 H NT-Pro-B Natriuret Pep Albumin 3.4 L Lipase TSH (Reflex) Urine Glucose (UA) 05/17/24 16:30 RBC Hgb Hct MCH MCHC RDW Plt Count MPV Neut % (Auto) Lymph % (Auto) [place] % (Auto) Lymph # (Auto) D-Dimer ABG pH ABG pCO2 ABG pO2 ABG HCO3 ABG O2 Content Total Hemoglobin Chloride Carbon Dioxide BUN Creatinine Glucose POC Capillary Glucose 153 H Alkaline Phosphatase NT-Pro-B Natriuret Pep Albumin Lipase TSH (Reflex) Urine Glucose (UA)
[2024-05-17] MEDS: INSULIN GLARGINE (*BKC) 100 UNITS/ML 15 UNITS SUB-Q (20:54)
[2024-05-17 21:08] LABS: Glucose Point of Care 159 mg/dl (65-105)
[2024-05-18] VITALS (8 sets, daily range): BP systolic 90–126; BP diastolic 46–63; PULSE 74–82; RESP 12–18; TEMP 36.3–37.1; O2SAT 98–100
[2024-05-18 00:23] LABS: Glucose 175 mg/dL (65-110); Lactate Dehydrogenase 145 U/L (120-246)
[2024-05-18] MEDS: ACETAMINOPHEN 325 MG TABLET 650 MG PO ×2 (04:18→20:16)
[2024-05-18 07:36] LABS: Alanine Aminotransferase 9 U/L (6-50); Albumin Level 3.6 g/dL (3.5-5.1); Alkaline Phosphatase 153 U/L (38-126); Anion Gap 8 mmol/L (4-12); Aspartate Amino Transferase 25 U/L (17-59); Basophils Absolute Auto 0.1 K/mm3 (0.0-0.1); Basophils Percent Auto 0.7 % (0.2-1.2); Bilirubin,Total 0.8 mg/dL (0.2-1.3); Blood Urea Nitrogen 21 mg/dL (9-20); Calcium 9.1 mg/dL (8.4-10.2); Carbon Dioxide 37 mmol/L (22-30); Chloride 96 mmol/L (98-107); Eosinophils Absolute Auto 0.3 K/mm3 (0-0.3); Estimated CRCL calculation 71 ml/min; Estimated Glomerular Filt Rate > 60; Glucose 81 mg/dL (65-110); Hematocrit 35.1 % (42.0-52.0); Hemoglobin 10.3 g/dL (14.0-18.0); Immature Granulocyte Absolute 0.02 K/mm3 (0.00-0.031); Immature Granulocyte Percent A 0.3 % (0-0.5); Lymphocytes Absolute Auto 0.62 K/mm3 (0.9-3.2); Lymphocytes Percent Auto 8.3 % (18.3-44.2); Magnesium 2.2 mg/dL (1.6-2.3); Mean Corpuscular HGB Conc 29.3 g/dl (32-36); Mean Corpuscular Hemoglobin 24.8 pg (26-34); Mean Corpuscular Volume 84.6 fl (80-100); Mean Platelet Volume 10.8 fl (7.4-10.4); Monocytes Absolute Auto 0.8 K/mm3 (0.1-0.6); Monocytes Percent Auto 10.2 % (2.6-8.5); Neutrophils Absolute Auto 5.7 K/mm3 (1.3-6.7); Neutrophils Percent Auto 76.5 % (45.5-73.1); Platelet Count Result 379 k/mm3 (150-375); Potassium 3.9 mmol/L (3.4-5.0); Red Blood Count 4.15 M/mm3 (4.6-6.20); Red Cell Distribution Width 17.5 % (11.5-14.5); Sodium 141 mmol/L (137-145); White Blood Count 7.5 K/mm3 (4.5-10.0)
[2024-05-18 08:31] LABS: Anisocytosis 1+; Hypochromasia 1+; Ovalocytes 1+; Platelet Estimate Adequate (Adequate); Schistocytes None Seen
[2024-05-18 09:39] LABS: Glucose Point of Care 78 mg/dl (65-105)
--- NOTE | 2024-05-18 10:13 | P.CONCA_ITS ---
Assessment and Plan Assessment and plan (1) Acute on chronic systolic HF (heart failure): Code(s): I50.23 - Acute on chronic systolic (congestive) heart failure Status: Acute Plan 1. Acute on chronic heart failure with reduced LVEF 2. S/p Medtronic biventricular ICD implanted at [facility] in 2019 3. Hypertension 4. Hyperlipidemia 5. Diabetes 6. Peripheral vascular disease s/p left BKA PLAN: 1. Planned for thoracentesis today. 2. Continue IV Lasix 40mg BID for now. Please monitor strict I/Os. 3. Continue ASA, Plavix. 4. Heart failure GDMT: Continue COreg, Jardiance, Entresto. Not on Spironolactone. Given soft blood pressures, will not uptitrate heart failure GDMT at this time. 5. Not on statin from what I see. Recommend statin if no contraindication. 6. Unclear if he has been seeing a pipe joints supervisor as an outpatient and who has been following his device. Will order device interrogation. He was seeing Dr. Clifton, but has been lost to follow up and has not been seen since February 2023. Unclear if he is seeing another pipe joints supervisor -- patient unable to clarify. Recommendations and plan discussed with Hospitalist. History of Present Illness History of Present Illness Consult date/time: 05/18/24 10:13 Requesting physician: Julia Nj APRN Consult reason: congestive heart failure Reason For Visit: Large pleural effusions Narrative: We are consulted for CHF. Dimitry is a 73 year old male with heart failure with reduced LVEF, bradycardia with significant heart block s/p Medtronic biventricular ICD implanted at [facility] in 2019, hypertension, diabetes, peripheral vascular disease s/p left BKA. Patient presented from his [facility] due to shortness of breath. He was seeing Dr. Clifton, but has been lost to follow up and has not been seen since February 2023. Unclear if he is seeing another pipe joints supervisor -- patient unable to clarify. Workup shows NT pro BNP 6800. CXR with large bilateral pleural effusions. Chest CTA with large bilateral pleural effusions. EKG shows ventricular paced rhythm. Echocardiogram here shows LVEF 15-20%. He is scheduled to undergo thoracentesis today. Review of Systems 2 Review of Systems: All systems reviewed & are unremarkable except as noted in HPI and below (HPI) [facility] Past Medical History Medical History Orthostatic hypotension Depression Complete heart block Nonsustained ventricular tachycardia Diabetic peripheral neuropathy Insulin dependent type 2 diabetes mellitus Paroxysmal atrial tachycardia Heart failure with reduced ejection fraction Nonischemic cardiomyopathy Vitamin D deficiency Dyslipidemia Essential (primary) hypertension Peripheral arterial disease Apical mural thrombus Shoulder fracture, left Surgical History Surgical History History of left below knee amputation History of complete ray amputation of third toe of right foot (05/2020) Due to osteomyelitis. History of permanent cardiac pacemaker placement (07/2019) Medtronic BiV-ICD placed at [facility]. Family History Family History Other No problems noted. Sibling Acute myocardial infarction Mother Lung cancer Social History Social History Social History: Lives alone in an apartment. He does not drive. Works for [employer]. Rare alcohol use. Lifelong nonsmoker. No drug use. No pets Surrogate medical decision maker: minesh Hurst. Code status: Full code. Smoking status: Former smoker Tobacco type: cigarettes Second hand tobacco smoke exposure: No Alcohol intake: former Substance use: never Substance use type: does not use Other substance usage details: once a year has an expensive bottle of alcohol Do You Feel Safe in your Home?: Yes Lack of Transportation: No Lack of Food: Never True Current Housing: I Have Housing Concerned About Future Housing: No Difficulty Paying Gas/Electric Bills: No Difficulty Paying for Meds: No Currently Unemployed: No Education: High School Diploma/GED Difficulty w/ Childcare or Family Care: No Living arrangements: with family Additional living arrangements comments: Lives with [id number]. . His in only daughter were killed in a car accident. 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 Spiritual care concerns: No Agree to blood products: Yes Meds Home Medications and Allergies Home Medications ?Medication ?Instructions ?Recorded ?Confirmed ?Type empagliflozin 10 mg tablet 10 mg PO DAILY #30 tabs 05/26/21 05/16/24 Rx (Jardiance) carvedilol 3.125 mg tablet (Coreg) 3.125 mg PO Q12H 30 days #60 tabs 07/28/23 05/16/24 Rx cholecalciferol (vitamin D3) 25 1,000 unit PO DAILY #30 tabs 07/28/23 05/16/24 Rx mcg (1,000 unit) tablet (Vitamin D3) magnesium oxide 400 mg (241.3 mg 500 mg (1.25 x 400 mg (241.3 mg 07/28/23 05/16/24 Rx magnesium) tablet magnesium)) PO DAILY #30 tabs duloxetine 20 mg capsule,delayed 20 mg PO DAILY 08/25/23 05/16/24 History release aspirin 81 mg capsule 81 mg PO DAILY 10/09/23 05/16/24 History furosemide 40 mg tablet 40 mg PO BID 10/09/23 05/16/24 History sacubitril 24 mg-valsartan 26 mg 1 tablet PO DAILY 10/09/23 05/16/24 History tablet (Entresto) miconazole nitrate 2 % topical 1 applic topical BID #28 grams 10/12/23 05/16/24 Rx cream clopidogrel 75 mg tablet 75 mg PO DAILY 05/16/24 05/16/24 History glucagon 1 mg solution for 1 mg IM .COMPLEX PRN hypoglycemia 05/16/24 05/17/24 History injection (Glucagon Emergency Kit) insulin glargine 100 unit/mL (3 15 unit subcut HS 05/16/24 05/17/24 History mL) subcutaneous pen (Lantus Solostar U-100 Insulin) insulin lispro 100 unit/mL 1 sliding scale dose subcut AC 05/16/24 05/17/24 History subcutaneous pen (Humalog KwikPen (U-100) Insulin) ipratropium 0.5 mg-albuterol 3 mg 3 ml inhalation QID PRN shortness 05/16/24 05/17/24 History (2.5 mg base)/3 mL nebulization of breath or wheezing soln sertraline 50 mg tablet 50 mg PO DAILY 05/16/24 05/16/24 History Allergies Allergy/AdvReac Type Severity Reaction Status Date / Time Penicillins Allergy Mild Unknown Verified 10/09/23 00:14 Vital Signs Vital Signs - 24 hr 05/17/24 14:00 05/17/24 20:19 05/17/24 20:20 Temperature 36.6 C Pulse Rate 82 68 68 Respiratory Rate 18 18 Blood Pressure 92/55 L Pulse Oximetry 100 100 Oxygen Delivery Nasal Cannula Oxygen Flow Rate 2 05/17/24 21:38 05/18/24 05:31 05/18/24 09:08 Temperature 36.8 C 36.7 C Pulse Rate 80 82 Respiratory Rate 14 14 Blood Pressure 96/60 L 101/63 Pulse Oximetry 100 100 98 Oxygen Delivery Nasal Cannula Oxygen Flow Rate 3 Exam 2 Const: General: no acute distress HENMT: Mouth: Yes moist mucous membranes Eyes: General: appearance normal, both eyes and all related structures S clera: sclerae normal Resp: Effort & Inspection: normal respiratory effort Auscultation: d iminished lung sounds Cardio: Rate: regular rate Rhythm: regular rhythm Heart sounds: no murmurs Neuro: Speech: normal speech Extrem: Other: Left AKA Psych: Mental Status: mental status grossly normal Affect: normal affect Results Labs and Meds 05/18/24 06:53 05/18/24 06:53 Lab results: Cardiac Enzymes 05/17/24 05/18/24 Range/Units 23:49 06:53 AST 25 (17-59) U/L Lactate Dehydrogenase 145 (120-246) U/L CBC 05/18/24 Range/Units 06:53 WBC 7.5 (4.5-10.0) K/mm3 RBC 4.15 L (4.6-6.20) M/mm3 Hgb 10.3 L (14.0-18.0) g/dL Hct 35.1 L (42.0-52.0) % Plt Count 379 H (150-375) k/mm3 Lymph # (Auto) 0.62 L (0.9-3.2) K/mm3 [place] # (Auto) 0.8 H (0.1-0.6) K/mm3 Eos # (Auto) 0.3 (0-0.3) K/mm3 Baso # (Auto) 0.1 (0.0-0.1) K/mm3 Comprehensive Metabolic Panel 05/17/24 05/18/24 Range/Units 23:49 06:53 Sodium 141 (137-145) mmol/L Potassium 3.9 (3.4-5.0) mmol/L Chloride 96 L (98-107) mmol/L Carbon Dioxide 37 H (22-30) mmol/L BUN 21 H (9-20) mg/dL Creatinine 0.72 (0.7-1.3) mg/dL Glucose 175 H 81 (65-110) mg/dL Calcium 9.1 (8.4-10.2) mg/dL AST 25 (17-59) U/L ALT 9 (6-50) U/L Alkaline Phosphatase 153 H (38-126) U/L Total Protein 8.0 8.0 (6.3-8.2) g/dL Albumin 3.6 (3.5-5.1) g/dL Intake and Output 05/17/24 05/18/24 05/18/24 23:59 07:59 15:59 Intake Total 400 Output Total 400 300 Balance -400 100 Intake: Oral 400 Output: Catheter Urine 400 300 External/Condom 400 300
--- NOTE | 2024-05-18 11:06 | P.PNIM_ITS ---
Progress Note: A&P Assessment and Plan (1) Acute on chronic combined systolic and diastolic CHF (congestive heart failure): Code(s): I50.43 - Acute on chronic combined systolic (congestive) and diastolic (congestive) heart failure Status: Acute Assessment and Plan: * BNP 6800 * Furosemide 40 mg ivp BID * Echocardiogram today showed: Summary 1. The left ventricle is normal in size with severely reduced systolic function. There is severe concentric left ventricular hypertrophy. The left ventricular ejection fraction is visually estimated to be 15-20%. 2. The right ventricle is normal in size with reduced systolic function. * Cardiology consult, appreciate recommendations. * Device interrogation ordered. * Heart failure GDMT: Continue COreg, Jardiance, Entresto. Not on Spironol actone. Given soft blood pressures, will not uptitrate heart failure GDMT at this time. (2) Nonischemic cardiomyopathy: Code(s): I42.8 - Other cardiomyopathies Status: Acute Assessment and Plan: * Carvedilol 3.125 mg PO q 12 * Sacubitril/Valsartan 24-26 mg 1 tab PO daily. (3) Bilateral pleural effusion: Code(s): J90 - Pleural effusion, not elsewhere classified Status: Acute Assessment and Plan: * Chest CTA showed: IMPRESSION: No pulmonary embolus. No aortic dissection or aneurysmal dilatation. Large bilateral pleural effusions, right greater than left with adjacent compressive atelectasis. * Furosemide 40 mg IVP BID * Cefepime 2 gram IVPB q12 and Doxycycline 100 mg IVPB q 12. * Pulmonology consult, appreciate recommendations. * Bilateral thoracentesis on Tuesday, patient will have to have Plavix held for 5 days. (4) CAD (coronary artery disease): Code(s): I25.10 - Atherosclerotic heart disease of [place]a coronary artery without angina pectoris Status: Acute Assessment and Plan: * Chest pain-free * LE dopplers negative. * Aspirin EC 81 mg PO daily, hold for thoracentesis * Clopidogrel Bisulfate 75 mg PO daily, hold for thoracentesis for 5 days. (5) Biventricular ICD (implantable cardioverter-defibrillator) in place: Code(s): Z95.810 - Presence of automatic (implantable) cardiac defibrillator Status: Chronic Assessment and Plan: * Continue to monitor (6) Paroxysmal atrial tachycardia: Code(s): I47.1 - Supraventricular tachycardia Status: Acute Assessment and Plan: * Stable (7) Diabetic ulcer of right foot associated with diabetes mellitus due to underlying condition: Qualifiers: Diabetic foot ulcer location: other Non-pressure ulcer stage: with necrosis of bone Qualified Code(s): E08.621 - Diabetes mellitus due to underlying condition with foot ulcer; 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 Code(s): E08.621 - Diabetes mellitus due to underlying condition with foot ulcer; L97.519 - Non-pressure chronic ulcer of other part of right foot with unspecified severity Status: Acute Assessment and Plan: * Wound care consult * Apply Santyl and cover with ABD. * Float heel. 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 * SSI along with home insulin. * Jardiance 10 mg PO daily. (9) Below-knee amputation of left lower extremity: Qualifiers: Encounter type: initial encounter Qualified Code(s): S88.112A - Complete traumatic amputation at level between knee and ankle, left lower leg, initial encounter Code(s): S88.112A - Complete traumatic amputation at level between knee and ankle, left lower leg, initial encounter Status: Acute Assessment and Plan: * Fall precautions (10) PAOD (peripheral arterial occlusive disease): Code(s): I77.9 - Disorder of arteries and arterioles, unspecified Status: Acute Assessment and Plan: * Unchanged Subjective Date/time seen: 05/18/24 11:06 Interval history: Patient lying in bed. Patient denies chest pain, palpitations, headache, dizziness, nausea, or vomiting. Unable to do thoracentesis today, patient will need Plavix held for 5 days. Plan for a thoracentesis on Tuesday. Review of Systems Review of Systems: All systems reviewed & are unremarkable except as noted in HPI and below Exam Const: General: comfortable and no acute distress Eyes: Sclera: sclerae normal Resp: Effort & Inspection: normal respiratory effort Auscultation: diminished lung sounds Cardio: Rate: regular rate Rhythm: regular rhythm GI: GI Palp: Yes Soft to palpation Auscultation: normal bowel sounds Skin: Other: multiple scabbed areas to right leg. Right foot diabetic ulcer. Neuro: Speech: normal speech Extrem: General: no pedal edema Psych: Mental Status: mental status grossly normal Affect: normal affect Objective Data Vital Signs Vital Signs: Vital Signs - 24 hr 05/17/24 14:00 05/17/24 20:19 05/17/24 20:20 Temperature 97.9 F Pulse Rate 82 68 68 Respiratory Rate 18 18 Blood Pressure 92/55 L Pulse Oximetry 100 100 Oxygen Delivery Nasal Cannula Oxygen Flow Rate 2 05/17/24 21:38 05/18/24 05:31 05/18/24 08:40 Temperature 98.2 F 98.1 F Pulse Rate 80 82 Respiratory Rate 14 14 Blood Pressure 96/60 L 101/63 Pulse Oximetry 100 100 98 Oxygen Delivery Nasal Cannula Oxygen Flow Rate 2 05/18/24 09:08 Temperature Pulse Rate Respiratory Rate Blood Pressure Pulse Oximetry 98 Oxygen Delivery Nasal Cannula Oxygen Flow Rate 3 Intake/Output Intake/Output: Intake & Output 05/15/24 05/16/24 05/17/24 05/18/24 23:59 23:59 23:59 23:59 Intake Total 650 750 400 Output Total 1500 300 Balance 650 -750 100 Meds/Results Medications: Active Medications Generic Name Dose Route Start Last Admin Trade Name Yimiq PRN Reason Stop Dose Admin Acetaminophen 650 mg 05/18/24 03:52 05/18/24 04:18 Acetaminophen 325 Mg Tablet PO 650 mg Q6H PRN Administration Mild Pain (1-3) or Fever Albuterol/Ipratropium 3 ml 05/17/24 01:19 Ipratropium 0.5 Mg/Albuterol Sulfate 2.5 Mg Ampul.Neb 3 Ml INHALATION QIDRT PRN shortness of breath or wheezing Aspirin 81 mg 05/17/24 09:00 05/17/24 09:13 Aspirin 81 Mg Enteric Tablet PO 81 mg DAILY CRISTI Administration Carvedilol 3.125 mg 05/17/24 09:00 05/17/24 20:19 Carvedilol 3.125 Mg Tablet PO 3.125 mg Q12HR CRISTI Administration Clopidogrel Bisulfate 75 mg 05/17/24 09:00 05/17/24 09:16 Clopidogrel Bisulfate 75 Mg Tablet PO 75 mg DAILY CRISTI Administration Collagenase 1 applic 05/17/24 09:00 05/17/24 17:43 Collagenase Oint 30 Gm Tube TOPICAL 1 applic QAM CRISTI Administration Dextrose 12.5 gm 05/17/24 08:22 Dextrose 50% 25 Gm/50 Ml Syringe IV PUSH PRN PRN Hypoglycemia Protocol Duloxetine HCl 20 mg 05/17/24 09:00 05/17/24 09:13 Duloxetine Hcl 20 Mg Capsule. PO 20 mg DAILY CRISTI Administration Empagliflozin 10 mg 05/17/24 09:00 05/17/24 09:12 Empagliflozin 10 Mg Tablet PO 10 mg DAILY CRISTI Administration Furosemide 40 mg 05/17/24 09:00 05/17/24 17:45 Furosemide Inj 40 Mg/4 Ml Vial IV PUSH Not Given BID CRISTI Glucagon 1 mg 05/17/24 08:22 Glucagon For Inj 1 Mg Vial IM PRN PRN Hypoglycemia Protocol Glucose 15 gm 05/17/24 08:22 Glucose Oral Gel 15 Gm Of Glucse In 37.5 Gm Tube PO PRN PRN Hypoglycemia Protocol Dextrose 1,000 mls @ 100 mls/hr 05/17/24 08:22 Dextrose 5% 1,000 Ml IVPB PRN PRN Hypoglycemia Protocol Cefepime HCl 2 gm in 50 mls @ 100 mls/hr 05/17/24 10:00 05/17/24 20:20 Maxipime 2 Gm/Ns 50 Ml IVPB 100 mls/hr Q12HR CRISTI Administration Doxycycline Hyclate 100 mg in 100 mls @ 100 mls/hr 05/17/24 10:00 05/17/24 20:54 Vibramycin 100 Mg/Ns 100 Ml IVPB 05/21/24 09:59 100 mls/hr Q12HR CRISTI Administration Insulin Aspart 3 units 05/17/24 08:00 05/18/24 09:33 Insulin Aspart (*Bkc) 100 Units/Ml 0.05 units/kg (3 units) Not Given SUB-Q TIDWM [facility] Insulin Aspart 2 - 5 units 05/17/24 12:00 05/18/24 09:33 Insulin Aspart (*Bkc) 100 Units/Ml SUB-Q Not Given TIDWM [facility] Protocol Insulin Aspart 1 - 2 units 05/17/24 21:00 05/17/24 20:20 Insulin Aspart (*Bkc) 100 Units/Ml SUB-Q Not Given HS [facility] Protocol Insulin Glargine 15 units 05/17/24 21:00 05/17/24 20:54 Insulin Glargine (*Bkc) 100 Units/Ml SUB-Q 15 units HS CRISTI Administration Magnesium Oxide 400 mg 05/17/24 09:00 05/17/24 09:13 Magnesium Oxide 400 Mg Tablet PO 400 mg DAILY CRISTI Administration Sacubitril/Valsartan 1 tab 05/17/24 09:00 05/17/24 09:13 Sacubitril/Valsartan 24-26 Mg Tablet PO 1 tab DAILY CRISTI Administration Sertraline HCl 50 mg 05/17/24 09:00 05/17/24 09:13 Sertraline Hcl 50 Mg Tablet PO 50 mg DAILY CRISTI Administration Radiology Results: ITS Impressions Chest X-Ray 05/16/24 17:44 IMPRESSION: Large bilateral pleural effusions, as detailed above. Chest CTA 05/16/24 19:58 IMPRESSION: No pulmonary embolus. No aortic dissection or aneurysmal dilatation. Large bilateral pleural effusions, right greater than left with adjacent compressive atelectasis. Venous Doppler Study 05/17/24 11:04 IMPRESSION: 1. No deep venous thrombosis in either lower limb. Labs Labs: Laboratory Results - last 24 hr 05/17/24 05/17/24 05/17/24 11:21 16:30 20:14 WBC RBC Hgb Hct MCV MCH MCHC RDW Plt Count MPV Immature Gran % (Auto) Neut % (Auto) Lymph % (Auto) [place] % (Auto) Eos % (Auto) Baso % (Auto) Lymph # (Auto) [place] # (Auto) Eos # (Auto) Baso # (Auto) Abs Immat Gran (auto) Absolute Neuts (auto) Absolute Nucleated RBC Nucleated RBC % Platelet Estimate Hypochromasia Anisocytosis Ovalocytes Schistocytes Sodium Potassium Chloride Carbon Dioxide Anion Gap BUN Creatinine Estim Creat Clear Calc Estimated GFR Glucose POC Capillary Glucose 101 153 H 159 H Calcium Magnesium Total Bilirubin AST ALT Alkaline Phosphatase Lactate Dehydrogenase Total Protein Albumin 05/17/24 05/18/24 05/18/24 23:49 06:53 09:37 WBC 7.5 RBC 4.15 L Hgb 10.3 L Hct 35.1 L MCV 84.6 MCH 24.8 L MCHC 29.3 L RDW 17.5 H Plt Count 379 H MPV 10.8 H Immature Gran % (Auto) 0.3 Neut % (Auto) 76.5 H Lymph % (Auto) 8.3 L [place] % (Auto) 10.2 H Eos % (Auto) 4.0 Baso % (Auto) 0.7 Lymph # (Auto) 0.62 L [place] # (Auto) 0.8 H Eos # (Auto) 0.3 Baso # (Auto) 0.1 Abs Immat Gran (auto) 0.02 Absolute Neuts (auto) 5.7 Absolute Nucleated RBC 0.000 Nucleated RBC % 0.0 Platelet Estimate Adequate Hypochromasia 1+ Anisocytosis 1+ Ovalocytes 1+ Schistocytes None seen Sodium 141 Potassium 3.9 Chloride 96 L Carbon Dioxide 37 H Anion Gap 8 BUN 21 H Creatinine 0.72 Estim Creat Clear Calc 71 Estimated GFR > 60 Glucose 175 H 81 POC Capillary Glucose 78 Calcium 9.1 Magnesium 2.2 Total Bilirubin 0.8 AST 25 ALT 9 Alkaline Phosphatase 153 H Lactate Dehydrogenase 145 Total Protein 8.0 8.0 Albumin 3.6 Quality VTE Prophylaxis VTE prophylaxis: mechanical ordered
[2024-05-18 11:34] LABS: Glucose Point of Care 115 mg/dl (65-105)
[2024-05-18] MEDS: carvediloL 3.125 MG TABLET PO ×2 (12:42→20:15)
[2024-05-18] MEDS: EMPAGLIFLOZIN 10 MG TABLET PO (12:44)
[2024-05-18] MEDS: MAGNESIUM OXIDE 400 MG TABLET PO (12:44)
[2024-05-18] MEDS: SACUBITRIL/VALSARTAN 24-26 MG TABLET 1 TAB PO (12:44)
[2024-05-18] MEDS: SERTRALINE HCL 50 MG TABLET PO (12:44)
[2024-05-18] MEDS: DULoxetine HCL 20 MG CAPSULE.DR PO (12:44)
[2024-05-18] MEDS: FUROSEMIDE INJ 40 MG/4 ML VIAL IV PUSH ×2 (12:45→17:27)
[2024-05-18] MEDS: COLLAGENASE OINT 30 GM TUBE 1 APPLIC TOPICAL (12:45)
[2024-05-18] MEDS: CEFEPIME 2 GM/NS 50 ML 2 GM/50 ML BAG IVPB ×2 (12:45→20:15)
[2024-05-18] MEDS: DOXYCYCLINE 100 MG/NS 100 ML 100 MG/100 ML BAG IVPB ×2 (13:24→20:41)
[2024-05-18 16:25] LABS: Glucose Point of Care 129 mg/dl (65-105)
[2024-05-18] MEDS: INSULIN GLARGINE (*BKC) 100 UNITS/ML 15 UNITS SUB-Q (20:16)
[2024-05-18 20:46] LABS: Glucose Point of Care 157 mg/dl (65-105)
--- NOTE | 2024-05-18 21:22 | P.PNPL_ITS ---
Progress Note: A&P Assessment and Plan (1) Bilateral pleural effusion: Code(s): J90 - Pleural effusion, not elsewhere classified Status: Acute Assessment and Plan: He has bilateral pleural effusions, R>L, due to acute exacerbation of systolic CHF; HFrEF. He has had thoracenteses in the past. I talked with him about having 1 tomorrow and he agrees with having this. He will get therapeutic relief and we will be able to use the fluid for diagnostic testing. I agree with his Lasix 40 mg b.i.d.. He is on empiric antibiotics but he does not have any symptoms to suggest that he is infected. We can deescalate the antibiotics after we can review the pleural fluid results. (2) Respiratory alkalosis: Code(s): E87.3 - Alkalosis Status: Acute Assessment and Plan: ABGs consistent with acute metabolic alkalosis with partial respiratory compensation, adequate oxygenation on 3 liters/minute. Plan plan: thoracentesis tomorrow, diagnostic and therapeutic goals lab placed, pt is NPO after midnight. He has had this procedure before, pleural fluid was due to CHF. O2 to maintain saturation 90-94%. Will follow with you. Subjective Date/time seen: 05/18/24 21:22 Objective Data Vital Signs Vital Signs: Vital Signs - 24 hr 05/17/24 21:38 05/18/24 05:31 05/18/24 08:40 Temperature 36.8 C 36.7 C Pulse Rate 80 82 Respiratory Rate 14 14 Blood Pressure 96/60 L 101/63 Pulse Oximetry 100 100 98 Oxygen Delivery Nasal Cannula Oxygen Flow Rate 2 05/18/24 09:08 05/18/24 12:42 05/18/24 14:00 Temperature 37.1 C Pulse Rate 82 82 Respiratory Rate 18 Blood Pressure 126/46 L Pulse Oximetry 98 100 Oxygen Delivery Nasal Cannula Oxygen Flow Rate 3 05/18/24 20:15 Temperature Pulse Rate 75 Respiratory Rate Blood Pressure Pulse Oximetry Oxygen Delivery Oxygen Flow Rate Intake/Output Intake/Output: Intake & Output 05/15/24 05/16/24 05/17/24 05/18/24 23:59 23:59 23:59 23:59 Intake Total 089 259 6533 Output Total 1500 1050 Balance 650 -600 -20 Meds/Results Medications: Active Medications Generic Name Dose Route Start Last Admin Trade Name Freq PRN Reason Stop Dose Admin Acetaminophen 650 mg 05/18/24 03:52 05/18/24 20:16 Acetaminophen 325 Mg Tablet PO 650 mg Q6H PRN Administration Mild Pain (1-3) or Fever Albuterol/Ipratropium 3 ml 05/17/24 01:19 Ipratropium 0.5 Mg/Albuterol Sulfate 2.5 Mg Ampul.Neb 3 Ml INHALATION QIDRT PRN shortness of breath or wheezing Aspirin 81 mg 05/17/24 09:00 05/18/24 12:42 Aspirin 81 Mg Enteric Tablet PO Not Given DAILY [facility] Carvedilol 3.125 mg 05/17/24 09:00 05/18/24 20:15 Carvedilol 3.125 Mg Tablet PO 3.125 mg Q12HR CRISTI Administration Clopidogrel Bisulfate 75 mg 05/17/24 09:00 05/18/24 12:42 Clopidogrel Bisulfate 75 Mg Tablet PO Not Given DAILY CRISTI Collagenase 1 applic 05/17/24 09:00 05/18/24 12:45 Collagenase Oint 30 Gm Tube TOPICAL 1 applic QAM CRISTI Administration Dextrose 12.5 gm 05/17/24 08:22 Dextrose 50% 25 Gm/50 Ml Syringe IV PUSH PRN PRN Hypoglycemia Protocol Duloxetine HCl 20 mg 05/17/24 09:00 05/18/24 12:44 Duloxetine Hcl 20 Mg Capsule.Dr PO 20 mg DAILY CRISTI Administration Empagliflozin 10 mg 05/17/24 09:00 05/18/24 12:44 Empagliflozin 10 Mg Tablet PO 10 mg DAILY CRISTI Administration Furosemide 40 mg 05/17/24 09:00 05/18/24 17:27 Furosemide Inj 40 Mg/4 Ml Vial IV PUSH 40 mg BID CRISTI Administration Glucagon 1 mg 05/17/24 08:22 Glucagon For Inj 1 Mg Vial IM PRN PRN Hypoglycemia Protocol Glucose 15 gm 05/17/24 08:22 Glucose Oral Gel 15 Gm Of Glucse In 37.5 Gm Tube PO PRN PRN Hypoglycemia Protocol Dextrose 1,000 mls @ 100 mls/hr 05/17/24 08:22 Dextrose 5% 1,000 Ml IVPB PRN PRN Hypoglycemia Protocol Cefepime HCl 2 gm in 50 mls @ 100 mls/hr 05/17/24 10:00 05/18/24 20:15 Maxipime 2 Gm/Ns 50 Ml IVPB 100 mls/hr Q12HR CRISTI Administration Doxycycline Hyclate 100 mg in 100 mls @ 100 mls/hr 05/17/24 10:00 05/18/24 20:41 Vibramycin 100 Mg/Ns 100 Ml IVPB 05/21/24 09:59 100 mls/hr Q12HR CRISTI Administration Insulin Aspart 3 units 05/17/24 08:00 05/18/24 17:25 Insulin Aspart (*Bkc) 100 Units/Ml 0.05 units/kg (3 units) Not Given SUB-Q TIDWM [facility] Insulin Aspart 2 - 5 units 05/17/24 12:00 05/18/24 16:29 Insulin Aspart (*Bkc) 100 Units/Ml SUB-Q Not Given TIDWM [facility] Protocol Insulin Aspart 1 - 2 units 05/17/24 21:00 05/18/24 20:15 Insulin Aspart (*Bkc) 100 Units/Ml SUB-Q Not Given [facility] Protocol Insulin Glargine 15 units 05/17/24 21:00 05/18/24 20:16 Insulin Glargine (*Bkc) 100 Units/Ml SUB-Q 15 units HS [facility] Administration Magnesium Oxide 400 mg 05/17/24 09:00 05/18/24 12:44 Magnesium Oxide 400 Mg Tablet PO 400 mg DAILY CRISTI Administration Sacubitril/Valsartan 1 tab 05/17/24 09:00 05/18/24 12:44 Sacubitril/Valsartan 24-26 Mg Tablet PO 1 tab DAILY CRISTI Administration Sertraline HCl 50 mg 05/17/24 09:00 05/18/24 12:44 Sertraline Hcl 50 Mg Tablet PO 50 mg DAILY CRISTI Administration Radiology Results: ITS Impressions Chest X-Ray 05/16/24 17:44 IMPRESSION: Large bilateral pleural effusions, as detailed above. Chest CTA 05/16/24 19:58 IMPRESSION: No pulmonary embolus. No aortic dissection or aneurysmal dilatation. Large bilateral pleural effusions, right greater than left with adjacent compressive atelectasis. Venous Doppler Study 05/17/24 11:04 IMPRESSION: 1. No deep venous thrombosis in either lower limb. Labs Labs: Laboratory Results - last 24 hr 05/17/24 05/18/24 05/18/24 23:49 06:53 09:37 WBC 7.5 RBC 4.15 L Hgb 10.3 L Hct 35.1 L MCV 84.6 MCH 24.8 L MCHC 29.3 L RDW 17.5 H Plt Count 379 H MPV 10.8 H Immature Gran % (Auto) 0.3 Neut % (Auto) 76.5 H Lymph % (Auto) 8.3 L [place] % (Auto) 10.2 H Eos % (Auto) 4.0 Baso % (Auto) 0.7 Lymph # (Auto) 0.62 L [place] # (Auto) 0.8 H Eos # (Auto) 0.3 Baso # (Auto) 0.1 Abs Immat Gran (auto) 0.02 Absolute Neuts (auto) 5.7 Absolute Nucleated RBC 0.000 Nucleated RBC % 0.0 Platelet Estimate Adequate Hypochromasia 1+ Anisocytosis 1+ Ovalocytes 1+ Schistocytes None seen Sodium 141 Potassium 3.9 Chloride 96 L Carbon Dioxide 37 H Anion Gap 8 BUN 21 H Creatinine 0.72 Estim Creat Clear Calc 71 Estimated GFR > 60 Glucose 175 H 81 POC Capillary Glucose 78 Calcium 9.1 Magnesium 2.2 Total Bilirubin 0.8 AST 25 ALT 9 Alkaline Phosphatase 153 H Lactate Dehydrogenase 145 Total Protein 8.0 8.0 Albumin 3.6 05/18/24 05/18/24 05/18/24 11:26 16:14 20:01 WBC RBC Hgb Hct MCV MCH MCHC RDW Plt Count MPV Immature Gran % (Auto) Neut % (Auto) Lymph % (Auto) [place] % (Auto) Eos % (Auto) Baso % (Auto) Lymph # (Auto) [place] # (Auto) Eos # (Auto) Baso # (Auto) Abs Immat Gran (auto) Absolute Neuts (auto) Absolute Nucleated RBC Nucleated RBC % Platelet Estimate Hypochromasia Anisocytosis Ovalocytes Schistocytes Sodium Potassium Chloride Carbon Dioxide Anion Gap BUN Creatinine Estim Creat Clear Calc Estimated GFR Glucose POC Capillary Glucose 115 H 129 H 157 H Calcium Magnesium Total Bilirubin AST ALT Alkaline Phosphatase Lactate Dehydrogenase Total Protein Albumin
[2024-05-19] VITALS (7 sets, daily range): BP systolic 98–101; BP diastolic 50–60; PULSE 69–78; RESP 14–16; TEMP 36.2–36.7; O2SAT 85–100
[2024-05-19 06:49] LABS: Basophils Absolute Auto 0.1 K/mm3 (0.0-0.1); Basophils Percent Auto 0.8 % (0.2-1.2); Eosinophils Absolute Auto 0.4 K/mm3 (0-0.3); Eosinophils Percent Auto 5.6 % (0-4.4); Hematocrit 32.6 % (42.0-52.0); Hemoglobin 9.6 g/dL (14.0-18.0); Immature Granulocyte Absolute 0.02 K/mm3 (0.00-0.031); Immature Granulocyte Percent A 0.3 % (0-0.5); Lymphocytes Absolute Auto 0.81 K/mm3 (0.9-3.2); Lymphocytes Percent Auto 11.1 % (18.3-44.2); Mean Corpuscular HGB Conc 29.4 g/dl (32-36); Mean Corpuscular Hemoglobin 24.9 pg (26-34); Mean Corpuscular Volume 84.5 fl (80-100); Mean Platelet Volume 10.6 fl (7.4-10.4); Monocytes Absolute Auto 0.8 K/mm3 (0.1-0.6); Monocytes Percent Auto 10.7 % (2.6-8.5); Neutrophils Absolute Auto 5.2 K/mm3 (1.3-6.7); Neutrophils Percent Auto 71.5 % (45.5-73.1); Platelet Count Result 375 k/mm3 (150-375); Red Blood Count 3.86 M/mm3 (4.6-6.20); Red Cell Distribution Width 17.4 % (11.5-14.5); White Blood Count 7.3 K/mm3 (4.5-10.0)
[2024-05-19 07:17] LABS: Alanine Aminotransferase 10 U/L (6-50); Albumin Level 3.4 g/dL (3.5-5.1); Alkaline Phosphatase 141 U/L (38-126); Anion Gap 6 mmol/L (4-12); Aspartate Amino Transferase 23 U/L (17-59); Bilirubin,Total 0.7 mg/dL (0.2-1.3); Blood Urea Nitrogen 25 mg/dL (9-20); Calcium 8.7 mg/dL (8.4-10.2); Carbon Dioxide 36 mmol/L (22-30); Chloride 95 mmol/L (98-107); Estimated CRCL calculation 78 ml/min; Estimated Glomerular Filt Rate > 60; Glucose 53 mg/dL (65-110); Magnesium 2.2 mg/dL (1.6-2.3); Potassium 3.8 mmol/L (3.4-5.0); Sodium 137 mmol/L (137-145)
[2024-05-19] MEDS: GLUCOSE ORAL GEL 15 GM OF GLUCSE IN 37.5 GM TUBE PO (07:34)
[2024-05-19] MEDS: EMPAGLIFLOZIN 10 MG TABLET PO (07:36)
[2024-05-19] MEDS: carvediloL 3.125 MG TABLET PO ×2 (07:36→20:36)
[2024-05-19] MEDS: SERTRALINE HCL 50 MG TABLET PO (07:36)
[2024-05-19] MEDS: SACUBITRIL/VALSARTAN 24-26 MG TABLET 1 TAB PO (07:36)
[2024-05-19] MEDS: FUROSEMIDE INJ 40 MG/4 ML VIAL IV PUSH ×2 (07:36→16:45)
[2024-05-19] MEDS: DULoxetine HCL 20 MG CAPSULE.DR PO (07:36)
[2024-05-19] MEDS: MAGNESIUM OXIDE 400 MG TABLET PO (07:37)
[2024-05-19] MEDS: DOXYCYCLINE 100 MG/NS 100 ML 100 MG/100 ML BAG IVPB ×2 (07:37→20:38)
[2024-05-19] MEDS: CEFEPIME 2 GM/NS 50 ML 2 GM/50 ML BAG IVPB ×2 (07:37→20:40)
[2024-05-19] MEDS: COLLAGENASE OINT 30 GM TUBE 1 APPLIC TOPICAL (07:45)
[2024-05-19 07:49] LABS: Anisocytosis 1+; Hypochromasia 1+; Ovalocytes 1+; Platelet Estimate Adequate (Adequate); Schistocytes None Seen
[2024-05-19 08:12] LABS: Glucose Point of Care 73 mg/dl (65-105)
[2024-05-19 08:12] LABS: Glucose Point of Care 59 mg/dl (65-105)
--- NOTE | 2024-05-19 10:50 | P.PNIM_ITS ---
Progress Note: A&P Assessment and Plan (1) Acute on chronic combined systolic and diastolic CHF (congestive heart failure): Code(s): I50.43 - Acute on chronic combined systolic (congestive) and diastolic (congestive) heart failure Status: Deleted Assessment and Plan: * BNP 6800 * Furosemide 40 mg ivp BID * Echocardiogram today showed: Summary 1. The left ventricle is normal in size with severely reduced systolic function. There is severe concentric left ventricular hypertrophy. The left ventricular ejection fraction is visually estimated to be 15-20%. 2. The right ventricle is normal in size with reduced systolic function. * Cardiology consult, appreciate recommendations. * Device interrogation ordered. * Heart failure GDMT: Continue COreg, Jardiance, Entresto. Not on Spiron olactone. Given soft blood pressures, will not uptitrate heart failure GDMT at this time. (2) Nonischemic cardiomyopathy: Code(s): I42.8 - Other cardiomyopathies Status: Acute Assessment and Plan: * Carvedilol 3.125 mg PO q 12 * Sacubitril/Valsartan 24-26 mg 1 tab PO daily. (3) Bilateral pleural effusion: Code(s): J90 - Pleural effusion, not elsewhere classified Status: Acute Assessment and Plan: * Chest CTA showed: IMPRESSION: No pulmonary embolus. No aortic dissection or aneurysmal dilatation. Large bilateral pleural effusions, right greater than left with adjacent compressive atelectasis. * Furosemide 40 mg IVP BID * Cefepime 2 gram IVPB q12 and Doxycycline 100 mg IVPB q 12. * Pulmonology consult, appreciate recommendations. * Bilateral thoracentesis on Tuesday, patient will have to have Plavix held for 5 days. (4) CAD (coronary artery disease): Code(s): I25.10 - Atherosclerotic heart disease of [place] coronary artery without angina pectoris Status: Acute Assessment and Plan: * Chest pain-free * LE dopplers negative. * Aspirin EC 81 mg PO daily, hold for thoracentesis * Clopidogrel Bisulfate 75 mg PO daily, hold for thoracentesis for 5 days. (5) Biventricular ICD (implantable cardioverter-defibrillator) in place: Code(s): Z95.810 - Presence of automatic (implantable) cardiac defibrillator Status: Chronic Assessment and Plan: * Continue to monitor (6) Paroxysmal atrial tachycardia: Code(s): I47.1 - Supraventricular tachycardia Status: Acute Assessment and Plan: * Stable (7) Diabetic ulcer of right foot associated with diabetes mellitus due to underlying condition: Qualifiers: Diabetic foot ulcer location: other Non-pressure ulcer stage: with necrosis of bone Qualified Code(s): E08.621 - Diabetes mellitus due to underlying condition with foot ulcer; 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 Code(s): E08.621 - Diabetes mellitus due to underlying condition with foot ulcer; L97.519 - Non-pressure chronic ulcer of other part of right foot with unspecified severity Status: Acute Assessment and Plan: * Wound care consult * Apply Santyl and cover with ABD. * Float heel. (8) Insulin dependent type 2 diabetes mellitus: Code(s): E11.9 - Type 2 diabetes mellitus without complications; Z79.4 - terminologist (current) use of insulin Status: Acute Assessment and Plan: * Hypoglycemic protocol. Patient with blood glucose of 53 this morning on blood work. Patient denied symptoms of low blood sugar, patient reported to the nurse that he did not eat much supper last night. * SSI along with home insulin. * Jardiance 10 mg PO daily. * Encourage oral intake. (9) Below-knee amputation of left lower extremity: Qualifiers: Encounter type: initial encounter Qualified Code(s): S88.112A - Complete traumatic amputation at level between knee and ankle, left lower leg, initial encounter Code(s): S88.112A - Complete traumatic amputation at level between knee and ankle, left lower leg, initial encounter Status: Acute Assessment and Plan: * Fall precautions (10) PAOD (peripheral arterial occlusive disease): Code(s): I77.9 - Disorder of arteries and arterioles, unspecified Status: Acute Assessment and Plan: * Unchanged Subjective Date/time seen: 05/19/24 10:50 Interval history: Patient lying in bed. Patient denies chest pain, palpitations, headache, dizziness, nausea, or vomiting. Unable to do thoracentesis yesterday, patient will need Plavix held for 5 days. Plan for a thoracentesis on Tuesday. Patient with blood glucose of 53 this morning on blood work. Patient denied symptoms of low blood sugar, patient reported to the nurse that he did not eat much supper last night. Review of Systems Review of Systems: All systems reviewed & are unremarkable except as noted in HPI and below Exam Const: General: comfortable and no acute distress Eyes: Sclera: sclerae normal Resp: Effort & Inspection: normal respiratory effort Auscultation: diminished lung sounds Cardio: Rate: regular rate Rhythm: regular rhythm GI: GI Palp: Yes Soft to palpation Auscultation: normal bowel sounds Skin: Other: multiple scabbed areas to right leg. Right foot diabetic ulcer. Neuro: Speech: normal speech Extrem: General: no pedal edema Psych: Mental Status: mental status grossly normal Affect: normal affect Objective Data Vital Signs Vital Signs: Vital Signs - 24 hr 05/18/24 12:42 05/18/24 14:00 05/18/24 20:00 Temperature 98.8 F Pulse Rate 82 82 74 Respiratory Rate 18 12 Blood Pressure 126/46 L Pulse Oximetry 100 100 Oxygen Delivery Nasal Cannula Oxygen Flow Rate 2 05/18/24 20:15 05/18/24 21:41 05/19/24 05:12 Temperature 97.4 F L 97.1 F L Pulse Rate 75 74 69 Respiratory Rate 12 14 Blood Pressure 90/53 L 100/50 L Pulse Oximetry 100 100 Oxygen Delivery Oxygen Flow Rate Intake/Output Intake/Output: Intake & Output 05/16/24 05/17/24 05/18/24 05/19/24 23:59 23:59 23:59 23:59 Intake Total 769 022 7442 620 Output Total 1500 1050 600 Balance 650 -600 130 20 Meds/Results Medications: Active Medications Generic Name Dose Route Start Last Admin Trade Name Freq PRN Reason Stop Dose Admin Acetaminophen 650 mg 05/18/24 03:52 05/18/24 20:16 Acetaminophen 325 Mg Tablet PO 650 mg Q6H PRN Administration Mild Pain (1-3) or Fever Albuterol/Ipratropium 3 ml 05/17/24 01:19 Ipratropium 0.5 Mg/Albuterol Sulfate 2.5 Mg Ampul.Neb 3 Ml INHALATION QIDRT PRN shortness of breath or wheezing Aspirin 81 mg 05/17/24 09:00 05/18/24 12:42 Aspirin 81 Mg Enteric Tablet PO Not Given DAILY CRISTI Carvedilol 3.125 mg 05/17/24 09:00 05/19/24 07:36 Carvedilol 3.125 Mg Tablet PO 3.125 mg Q12HR CRISTI Administration Clopidogrel Bisulfate 75 mg 05/17/24 09:00 05/18/24 12:42 Clopidogrel Bisulfate 75 Mg Tablet PO Not Given DAILY CRISTI Collagenase 1 applic 05/17/24 09:00 05/19/24 07:45 Collagenase Oint 30 Gm Tube TOPICAL 1 applic QAM CRISTI Administration Dextrose 12.5 gm 05/17/24 08:22 Dextrose 50% 25 Gm/50 Ml Syringe IV PUSH PRN PRN Hypoglycemia Protocol Duloxetine HCl 20 mg 05/17/24 09:00 05/19/24 07:36 Duloxetine Hcl 20 Mg Capsule. PO 20 mg DAILY CRISTI Administration Empagliflozin 10 mg 05/17/24 09:00 05/19/24 07:36 Empagliflozin 10 Mg Tablet PO 10 mg DAILY CRISTI Administration Furosemide 40 mg 05/17/24 09:00 05/19/24 07:36 Furosemide Inj 40 Mg/4 Ml Vial IV PUSH 40 mg BID CRISTI Administration Glucagon 1 mg 05/17/24 08:22 Glucagon For Inj 1 Mg Vial IM PRN PRN Hypoglycemia Protocol Glucose 15 gm 05/17/24 08:22 05/19/24 07:34 Glucose Oral Gel 15 Gm Of Glucse In 37.5 Gm Tube PO 15 gm PRN PRN Administration Hypoglycemia Protocol Dextrose 1,000 mls @ 100 mls/hr 05/17/24 08:22 Dextrose 5% 1,000 Ml IVPB PRN PRN Hypoglycemia Protocol Cefepime HCl 2 gm in 50 mls @ 100 mls/hr 05/17/24 10:00 05/19/24 07:37 Maxipime 2 Gm/Ns 50 Ml IVPB 100 mls/hr Q12HR CRISTI Administration Doxycycline Hyclate 100 mg in 100 mls @ 100 mls/hr 05/17/24 10:00 05/19/24 07:37 Vibramycin 100 Mg/Ns 100 Ml IVPB 05/21/24 09:59 100 mls/hr Q12HR CRISTI Administration Insulin Aspart 3 units 05/17/24 08:00 05/19/24 07:46 Insulin Aspart (*Bkc) 100 Units/Ml 0.05 units/kg (3 units) Not Given SUB-Q TIDWM [facility] Insulin Aspart 2 - 5 units 05/17/24 12:00 05/19/24 07:46 Insulin Aspart (*Bkc) 100 Units/Ml SUB-Q Not Given TIDWM [facility] Protocol Insulin Aspart 1 - 2 units 05/17/24 21:00 05/18/24 20:15 Insulin Aspart (*Bkc) 100 Units/Ml SUB-Q Not Given HS [facility] Protocol Insulin Glargine 15 units 05/17/24 21:00 05/18/24 20:16 Insulin Glargine (*Bkc) 100 Units/Ml SUB-Q 15 units HS CRISTI Administration Magnesium Oxide 400 mg 05/17/24 09:00 05/19/24 07:37 Magnesium Oxide 400 Mg Tablet PO 400 mg DAILY CRISTI Administration Sacubitril/Valsartan 1 tab 05/17/24 09:00 05/19/24 07:36 Sacubitril/Valsartan 24-26 Mg Tablet PO 1 tab DAILY CRISTI Administration Sertraline HCl 50 mg 05/17/24 09:00 05/19/24 07:36 Sertraline Hcl 50 Mg Tablet PO 50 mg DAILY CRISTI Administration Radiology Results: ITS Impressions Chest X-Ray 05/16/24 17:44 IMPRESSION: Large bilateral pleural effusions, as detailed above. Chest CTA 05/16/24 19:58 IMPRESSION: No pulmonary embolus. No aortic dissection or aneurysmal dilatation. Large bilateral pleural effusions, right greater than left with adjacent compressive atelectasis. Venous Doppler Study 05/17/24 11:04 IMPRESSION: 1. No deep venous thrombosis in either lower limb. Labs Labs: Laboratory Results - last 24 hr 05/18/24 05/18/24 05/18/24 11:26 16:14 20:01 WBC RBC Hgb Hct MCV MCH MCHC RDW Plt Count MPV Immature Gran % (Auto) Neut % (Auto) Lymph % (Auto) [place] % (Auto) Eos % (Auto) Baso % (Auto) Lymph # (Auto) [place] # (Auto) Eos # (Auto) Baso # (Auto) Abs Immat Gran (auto) Absolute Neuts (auto) Absolute Nucleated RBC Nucleated RBC % Platelet Estimate Hypochromasia Anisocytosis Ovalocytes Schistocytes Sodium Potassium Chloride Carbon Dioxide Anion Gap BUN Creatinine Estim Creat Clear Calc Estimated GFR Glucose POC Capillary Glucose 115 H 129 H 157 H Calcium Magnesium Total Bilirubin AST ALT Alkaline Phosphatase Total Protein Albumin 05/19/24 05/19/24 05/19/24 06:29 07:43 07:59 WBC 7.3 RBC 3.86 L Hgb 9.6 L Hct 32.6 L MCV 84.5 MCH 24.9 L MCHC 29.4 L RDW 17.4 H Plt Count 375 MPV 10.6 H Immature Gran % (Auto) 0.3 Neut % (Auto) 71.5 Lymph % (Auto) 11.1 L [place] % (Auto) 10.7 H Eos % (Auto) 5.6 H Baso % (Auto) 0.8 Lymph # (Auto) 0.81 L [place] # (Auto) 0.8 H Eos # (Auto) 0.4 H Baso # (Auto) 0.1 Abs Immat Gran (auto) 0.02 Absolute Neuts (auto) 5.2 Absolute Nucleated RBC 0.000 Nucleated RBC % 0.0 Platelet Estimate Adequate Hypochromasia 1+ Anisocytosis 1+ Ovalocytes 1+ Schistocytes None seen Sodium 137 Potassium 3.8 Chloride 95 L Carbon Dioxide 36 H Anion Gap 6 BUN 25 H Creatinine 0.65 L Estim Creat Clear Calc 78 Estimated GFR > 60 Glucose 53 L* POC Capillary Glucose 59 L* 73 Calcium 8.7 Magnesium 2.2 Total Bilirubin 0.7 AST 23 ALT 10 Alkaline Phosphatase 141 H Total Protein 8.0 Albumin 3.4 L Quality VTE Prophylaxis VTE prophylaxis: mechanical ordered
[2024-05-19 12:07] LABS: Glucose Point of Care 115 mg/dl (65-105)
[2024-05-19 12:07] LABS: Glucose Point of Care 150 mg/dl (65-105)
--- NOTE | 2024-05-19 14:15 | PM.PNCARD ---
Progress Note: A&P Assessment and Plan (1) Acute on chronic heart failure with reduced ejection fraction (HFrEF, <= 40%): Code(s): I50.23 - Acute on chronic systolic (congestive) heart failure Status: Acute Plan 1. Acute on chronic heart failure with reduced LVEF of 15-20%. 2. S/p Medtronic biventricular ICD implanted at [facility] in 2019 3. Hypertension 4. Hyperlipidemia 5. Diabetes 6. Peripheral vascular disease s/p left BKA PLAN: 1. Planned for thoracentesis on Tuesday. 2. Continue IV Lasix 40mg BID for now. Please monitor strict I/Os. 3. Continue ASA, Plavix. 4. Heart failure GDMT: Continue Coreg, Jardiance, Entresto. Not on Spironolactone. Given soft blood pressures, will not uptitrate heart failure GDMT at this time. 5. Not on statin from what I see, statin therapy indicated. Will start Atorvastatin. 6. Unclear if he has been seeing a dividend deposit entry clerk as an outpatient and who has been following his device. Will order device interrogation. He was seeing Dr. Clifton, but has been lost to follow up and has not been seen since February 2023. Unclear if he is seeing another dividend deposit entry clerk -- patient unable to clarify. Subjective Date/time seen: 05/19/24 14:15 Interval history: Reason for visit: Acute on chronic HFrEF HPI: We are consulted for CHF. Dimitry is a 73 year old male with heart failure with reduced LVEF, bradycardia with significant heart block s/p Medtronic biventricular ICD implanted at [facility] in 2019, hypertension, diabetes, peripheral vascular disease s/p left BKA. Patient presented from his shelter due to shortness of breath. He was seeing Dr. Clifton, but has been lost to follow up and has not been seen since February 2023. Unclear if he is seeing another dividend deposit entry clerk -- patient unable to clarify. Workup shows NT pro BNP 6800. CXR with large bilateral pleural effusions. Chest CTA with large bilateral pleural effusions. EKG shows ventricular paced rhythm. Echocardiogram here shows LVEF 15-20%. He is scheduled to undergo thoracentesis today. Date of service 05/19: He feels okay. Sad that he has to stay until Tuesday to get thoracentesis done. Wants to go back to his shelter as soon as he can to see his friends again. Review of Systems Cardiovascular: Cardiovascular: Reports as per HPI Exam Const: General: no acute distress HENMT: Mouth: Yes moist mucous membranes Eyes: General: appearance normal, both eyes and all related structures Sclera: sclerae normal Resp: Effort & Inspection: normal respiratory effort Auscultation: diminished lung sounds Cardio: Rate: regular rate Rhythm: regular rhythm Heart sounds: no murmurs Neuro: Speech: normal speech Extrem: Other: Left AKA Psych: Mental Status: mental status grossly normal Affect: normal affect Objective Data Vital Signs Vital Signs: Vital Signs - 24 hr 05/18/24 20:00 05/18/24 20:15 05/18/24 21:41 Temperature 36.3 C L Pulse Rate 74 75 74 Respiratory Rate 12 12 Blood Pressure 90/53 L Pulse Oximetry 100 100 Oxygen Delivery Nasal Cannula Oxygen Flow Rate 2 05/19/24 05:12 05/19/24 12:53 05/19/24 13:40 Temperature 36.2 C L Pulse Rate 69 Respiratory Rate 14 Blood Pressure 100/50 L Pulse Oximetry 100 99 85 L Oxygen Delivery Nasal Cannula Room Air Oxygen Flow Rate 2 05/19/24 13:42 Temperature Pulse Rate Respiratory Rate Blood Pressure Pulse Oximetry 90 Oxygen Delivery Nasal Cannula Oxygen Flow Rate 1 Intake/Output Intake/Output: Intake & Output 05/16/24 05/17/24 05/18/24 05/19/24 23:59 23:59 23:59 23:59 Intake Total 468 522 9150 740 Output Total 1500 1050 600 Balance 650 -600 130 140 Meds/Results Medications: Active Medications Generic Name Dose Route Start Last Admin Trade Name Freq PRN Reason Stop Dose Admin Acetaminophen 650 mg 05/18/24 03:52 05/18/24 20:16 Acetaminophen 325 Mg Tablet PO 650 mg Q6H PRN Administration Mild Pain (1-3) or Fever Albuterol/Ipratropium 3 ml 05/17/24 01:19 Ipratropium 0.5 Mg/Albuterol Sulfate 2.5 Mg Ampul.Neb 3 Ml INHALATION QIDRT PRN shortness of breath or wheezing Aspirin 81 mg 05/17/24 09:00 05/18/24 12:42 Aspirin 81 Mg Enteric Tablet PO Not Given DAILY CRISTI Carvedilol 3.125 mg 05/17/24 09:00 05/19/24 07:36 Carvedilol 3.125 Mg Tablet PO 3.125 mg Q12HR CRISTI Administration Clopidogrel Bisulfate 75 mg 05/17/24 09:00 05/18/24 12:42 Clopidogrel Bisulfate 75 Mg Tablet PO Not Given DAILY CRISTI Collagenase 1 applic 05/17/24 09:00 05/19/24 07:45 Collagenase Oint 30 Gm Tube TOPICAL 1 applic QAM CRISTI Administration Dextrose 12.5 gm 05/17/24 08:22 Dextrose 50% 25 Gm/50 Ml Syringe IV PUSH PRN PRN Hypoglycemia Protocol Duloxetine HCl 20 mg 05/17/24 09:00 05/19/24 07:36 Duloxetine Hcl 20 Mg Capsule. PO 20 mg DAILY CRISTI Administration Empagliflozin 10 mg 05/17/24 09:00 05/19/24 07:36 Empagliflozin 10 Mg Tablet PO 10 mg DAILY CRISTI Administration Furosemide 40 mg 05/17/24 09:00 05/19/24 07:36 Furosemide Inj 40 Mg/4 Ml Vial IV PUSH 40 mg BID CRISTI Administration Glucagon 1 mg 05/17/24 08:22 Glucagon For Inj 1 Mg Vial IM PRN PRN Hypoglycemia Protocol Glucose 15 gm 05/17/24 08:22 05/19/24 07:34 Glucose Oral Gel 15 Gm Of Glucse In 37.5 Gm Tube PO 15 gm PRN PRN Administration Hypoglycemia Protocol Dextrose 1,000 mls @ 100 mls/hr 05/17/24 08:22 Dextrose 5% 1,000 Ml IVPB PRN PRN Hypoglycemia Protocol Cefepime HCl 2 gm in 50 mls @ 100 mls/hr 05/17/24 10:00 05/19/24 07:37 Maxipime 2 Gm/Ns 50 Ml IVPB 100 mls/hr Q12HR CRISTI Administration Doxycycline Hyclate 100 mg in 100 mls @ 100 mls/hr 05/17/24 10:00 05/19/24 07:37 Vibramycin 100 Mg/Ns 100 Ml IVPB 05/21/24 09:59 100 mls/hr Q12HR CRISTI Administration Insulin Aspart 3 units 05/17/24 08:00 05/19/24 11:45 Insulin Aspart (*Bkc) 100 Units/Ml 0.05 units/kg (3 units) Not Given SUB-Q TIDWM [facility] Insulin Aspart 2 - 5 units 05/17/24 12:00 05/19/24 11:45 Insulin Aspart (*Bkc) 100 Units/Ml SUB-Q Not Given TIDWM [facility] Protocol Insulin Aspart 1 - 2 units 05/17/24 21:00 05/18/24 20:15 Insulin Aspart (*Bkc) 100 Units/Ml SUB-Q Not Given HS [facility] Protocol Insulin Glargine 15 units 05/17/24 21:00 05/18/24 20:16 Insulin Glargine (*Bkc) 100 Units/Ml SUB-Q 15 units HS CRISTI Administration Magnesium Oxide 400 mg 05/17/24 09:00 05/19/24 07:37 Magnesium Oxide 400 Mg Tablet PO 400 mg DAILY CRISTI Administration Sacubitril/Valsartan 1 tab 05/17/24 09:00 05/19/24 07:36 Sacubitril/Valsartan 24-26 Mg Tablet PO 1 tab DAILY CRISTI Administration Sertraline HCl 50 mg 05/17/24 09:00 05/19/24 07:36 Sertraline Hcl 50 Mg Tablet PO 50 mg DAILY CRISTI Administration Radiology Results: ITS Impressions Chest X-Ray 05/16/24 17:44 IMPRESSION: Large bilateral pleural effusions, as detailed above. Chest CTA 05/16/24 19:58 IMPRESSION: No pulmonary embolus. No aortic dissection or aneurysmal dilatation. Large bilateral pleural effusions, right greater than left with adjacent compressive atelectasis. Venous Doppler Study 05/17/24 11:04 IMPRESSION: 1. No deep venous thrombosis in either lower limb. Labs Labs: Laboratory Results - last 24 hr 05/18/24 05/18/24 05/19/24 16:14 20:01 06:29 WBC 7.3 RBC 3.86 L Hgb 9.6 L Hct 32.6 L MCV 84.5 MCH 24.9 L MCHC 29.4 L RDW 17.4 H Plt Count 375 MPV 10.6 H Immature Gran % (Auto) 0.3 Neut % (Auto) 71.5 Lymph % (Auto) 11.1 L [place] % (Auto) 10.7 H Eos % (Auto) 5.6 H Baso % (Auto) 0.8 Lymph # (Auto) 0.81 L [place] # (Auto) 0.8 H Eos # (Auto) 0.4 H Baso # (Auto) 0.1 Abs Immat Gran (auto) 0.02 Absolute Neuts (auto) 5.2 Absolute Nucleated RBC 0.000 Nucleated RBC % 0.0 Platelet Estimate Adequate Hypochromasia 1+ Anisocytosis 1+ Ovalocytes 1+ Schistocytes None seen Sodium 137 Potassium 3.8 Chloride 95 L Carbon Dioxide 36 H Anion Gap 6 BUN 25 H Creatinine 0.65 L Estim Creat Clear Calc 78 Estimated GFR > 60 Glucose 53 L* POC Capillary Glucose 129 H 157 H Calcium 8.7 Magnesium 2.2 Total Bilirubin 0.7 AST 23 ALT 10 Alkaline Phosphatase 141 H Total Protein 8.0 Albumin 3.4 L 05/19/24 05/19/24 05/19/24 07:43 07:59 09:06 WBC RBC Hgb Hct MCV MCH MCHC RDW Plt Count MPV Immature Gran % (Auto) Neut % (Auto) Lymph % (Auto) [place] % (Auto) Eos % (Auto) Baso % (Auto) Lymph # (Auto) [place] # (Auto) Eos # (Auto) Baso # (Auto) Abs Immat Gran (auto) Absolute Neuts (auto) Absolute Nucleated RBC Nucleated RBC % Platelet Estimate Hypochromasia Anisocytosis Ovalocytes Schistocytes Sodium Potassium Chloride Carbon Dioxide Anion Gap BUN Creatinine Estim Creat Clear Calc Estimated GFR Glucose POC Capillary Glucose 59 L* 73 115 H Calcium Magnesium Total Bilirubin AST ALT Alkaline Phosphatase Total Protein Albumin 05/19/24 11:58 WBC RBC Hgb Hct MCV MCH MCHC RDW Plt Count MPV Immature Gran % (Auto) Neut % (Auto) Lymph % (Auto) [place] % (Auto) Eos % (Auto) Baso % (Auto) Lymph # (Auto) [place] # (Auto) Eos # (Auto) Baso # (Auto) Abs Immat Gran (auto) Absolute Neuts (auto) Absolute Nucleated RBC Nucleated RBC % Platelet Estimate Hypochromasia Anisocytosis Ovalocytes Schistocytes Sodium Potassium Chloride Carbon Dioxide Anion Gap BUN Creatinine Estim Creat Clear Calc Estimated GFR Glucose POC Capillary Glucose 150 H Calcium Magnesium Total Bilirubin AST ALT Alkaline Phosphatase Total Protein Albumin
[2024-05-19 18:09] LABS: Glucose Point of Care 141 mg/dl (65-105)
[2024-05-19] MEDS: INSULIN GLARGINE (*BKC) 100 UNITS/ML 15 UNITS SUB-Q (20:44)
[2024-05-19 21:22] LABS: Glucose Point of Care 178 mg/dl (65-105)
[2024-05-20 06:00] VITALS: BP 98/50; PULSE 74; RESP 12; TEMP 36.3; O2SAT 100
[2024-05-20 06:14] LABS: Glucose Point of Care 64 mg/dl (65-105)
[2024-05-20 08:00] LABS: Basophils Absolute Auto 0.1 K/mm3 (0.0-0.1); Basophils Percent Auto 0.8 % (0.2-1.2); Eosinophils Absolute Auto 0.4 K/mm3 (0-0.3); Eosinophils Percent Auto 4.7 % (0-4.4); Hematocrit 30.9 % (42.0-52.0); Hemoglobin 9.2 g/dL (14.0-18.0); Immature Granulocyte Absolute 0.02 K/mm3 (0.00-0.031); Immature Granulocyte Percent A 0.3 % (0-0.5); Lymphocytes Absolute Auto 0.72 K/mm3 (0.9-3.2); Lymphocytes Percent Auto 9.6 % (18.3-44.2); Mean Corpuscular HGB Conc 29.8 g/dl (32-36); Mean Corpuscular Hemoglobin 24.9 pg (26-34); Mean Corpuscular Volume 83.5 fl (80-100); Mean Platelet Volume 11.1 fl (7.4-10.4); Monocytes Absolute Auto 0.7 K/mm3 (0.1-0.6); Monocytes Percent Auto 8.8 % (2.6-8.5); Neutrophils Absolute Auto 5.7 K/mm3 (1.3-6.7); Neutrophils Percent Auto 75.8 % (45.5-73.1); Platelet Count Result 333 k/mm3 (150-375); Red Cell Distribution Width 17.3 % (11.5-14.5); White Blood Count 7.5 K/mm3 (4.5-10.0)
[2024-05-20 08:07] LABS: Glucose Point of Care 95 mg/dl (65-105)
[2024-05-20 08:35] LABS: Alanine Aminotransferase 11 U/L (6-50); Albumin Level 3.2 g/dL (3.5-5.1); Alkaline Phosphatase 119 U/L (38-126); Anion Gap 9 mmol/L (4-12); Aspartate Amino Transferase 30 U/L (17-59); Bilirubin,Total 0.8 mg/dL (0.2-1.3); Blood Urea Nitrogen 29 mg/dL (9-20); Calcium 8.3 mg/dL (8.4-10.2); Carbon Dioxide 31 mmol/L (22-30); Chloride 94 mmol/L (98-107); Estimated CRCL calculation 83 ml/min; Estimated Glomerular Filt Rate > 60; Glucose 85 mg/dL (65-110); Magnesium 2.2 mg/dL (1.6-2.3); Sodium 134 mmol/L (137-145)
[2024-05-20] MEDS: ATORVASTATIN 40 MG TABLET PO (08:46)
[2024-05-20] MEDS: SERTRALINE HCL 50 MG TABLET PO (08:46)
[2024-05-20] MEDS: MAGNESIUM OXIDE 400 MG TABLET PO (08:46)
[2024-05-20] MEDS: SACUBITRIL/VALSARTAN 24-26 MG TABLET 1 TAB PO (08:46)
[2024-05-20] MEDS: carvediloL 3.125 MG TABLET PO ×2 (08:46→21:10)
[2024-05-20] MEDS: FUROSEMIDE INJ 40 MG/4 ML VIAL IV PUSH ×2 (08:46→16:27)
[2024-05-20] MEDS: DULoxetine HCL 20 MG CAPSULE.DR PO (08:46)
[2024-05-20] MEDS: EMPAGLIFLOZIN 10 MG TABLET PO (08:46)
[2024-05-20] MEDS: CEFEPIME 2 GM/NS 50 ML 2 GM/50 ML BAG IVPB ×2 (08:49→21:26)
[2024-05-20] MEDS: DOXYCYCLINE 100 MG/NS 100 ML 100 MG/100 ML BAG IVPB ×2 (08:49→20:25)
[2024-05-20] MEDS: COLLAGENASE OINT 30 GM TUBE 1 APPLIC TOPICAL (08:50)
[2024-05-20 09:15] LABS: Anisocytosis 1+; Hypochromasia 1+; Platelet Estimate Adequate (Adequate); Schistocytes None Seen
[2024-05-20 09:17] LABS: Ovalocytes 1+
--- NOTE | 2024-05-20 11:12 | P.PNIM_ITS ---
Progress Note: A&P Assessment and Plan (1) Acute on chronic combined systolic and diastolic CHF (congestive heart failure): Code(s): I50.43 - Acute on chronic combined systolic (congestive) and diastolic (congestive) heart failure Status: Deleted Assessment and Plan: * BNP 6800 * Furosemide 40 mg ivp BID * Echocardiogram 05/17/24 showed: Summary 1. The left ventricle is normal in size with severely reduced systolic function. There is severe concentric left ventricular hypertrophy. The left ventricular ejection fraction is visually estimated to be 15-20%. 2. The right ventricle is normal in size with reduced systolic function. * Cardiology consult, appreciate recommendations. * Device interrogation ordered. * Heart failure GDMT: Continue Coreg, Jardiance, Entresto. Not on Spir onolactone. Given soft blood pressures, will not uptitrate heart failure GDMT at this time. (2) Nonischemic cardiomyopathy: Code(s): I42.8 - Other cardiomyopathies Status: Acute Assessment and Plan: * Carvedilol 3.125 mg PO q 12 * Sacubitril/Valsartan 24-26 mg 1 tab PO daily. (3) Bilateral pleural effusion: Code(s): J90 - Pleural effusion, not elsewhere classified Status: Acute Assessment and Plan: * Chest CTA showed: IMPRESSION: No pulmonary embolus. No aortic dissection or aneurysmal dilatation. Large bilateral pleural effusions, right greater than left with adjacent compressive atelectasis. * Furosemide 40 mg IVP BID * Cefepime 2 gram IVPB q12 and Doxycycline 100 mg IVPB q 12. * Pulmonology consult, appreciate recommendations. * Bilateral thoracentesis on Tuesday, patient will have to have Plavix held for 5 days. NPO after midnight tonight. * Blood cultures no growth to date. (4) CAD (coronary artery disease): Code(s): I25.10 - Atherosclerotic heart disease of [place] coronary artery without angina pectoris Status: Acute Assessment and Plan: * Chest pain-free * LE dopplers negative. * Aspirin EC 81 mg PO daily, hold for thoracentesis * Clopidogrel Bisulfate 75 mg PO daily, hold for thoracentesis for 5 days. (5) Biventricular ICD (implantable cardioverter-defibrillator) in place: Code(s): Z95.810 - Presence of automatic (implantable) cardiac defibrillator Status: Chronic Assessment and Plan: * Continue to monitor (6) Paroxysmal atrial tachycardia: Code(s): I47.1 - Supraventricular tachycardia Status: Acute Assessment and Plan: * Stable (7) Diabetic ulcer of right foot associated with diabetes mellitus due to underlying condition: Qualifiers: Diabetic foot ulcer location: other Non-pressure ulcer stage: with necrosis of bone Qualified Code(s): E08.621 - Diabetes mellitus due to underlying condition with foot ulcer; 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 Code(s): E08.621 - Diabetes mellitus due to underlying condition with foot ulcer; L97.519 - Non-pressure chronic ulcer of other part of right foot with unspecified severity Status: Acute Assessment and Plan: * Wound care consult * Apply Santyl and cover with ABD. * Float heel. (8) Insulin dependent type 2 diabetes mellitus: Code(s): E11.9 - Type 2 diabetes mellitus without complications; Z79.4 - half-way (current) use of insulin Status: Acute Assessment and Plan: * Hypoglycemic protocol. Decrease Lantus 12 units subq tonight. NPO after midnight for thoracentesis. * SSI along with home insulin. * Jardiance 10 mg PO daily. * Encourage oral intake. (9) Below-knee amputation of left lower extremity: Qualifiers: Encounter type: initial encounter Qualified Code(s): S88.112A - Complete traumatic amputation at level between knee and ankle, left lower leg, initial encounter Code(s): S88.112A - Complete traumatic amputation at level between knee and ankle, left lower leg, initial encounter Status: Acute Assessment and Plan: * Fall precautions (10) PAOD (peripheral arterial occlusive disease): Code(s): I77.9 - Disorder of arteries and arterioles, unspecified Status: Acute Assessment and Plan: * Unchanged Subjective Date/time seen: 05/20/24 11:12 Interval history: Patient lying in bed, ready to go back to [facility]. Patient states that he participates in activities their and likes their food. Patient denies chest pain, palpitations, headache, dizziness, nausea, or vomiting. Unable to do thoracentesis yesterday, patient will need Plavix held for 5 days. Plan for a thoracentesis on Tuesday, NPO after midnight. Review of Systems Review of Systems: All systems reviewed & are unremarkable except as noted in HPI and below Exam Const: General: comfortable and no acute distress Eyes: Sclera: sclerae normal Resp: Effort & Inspection: normal respiratory effort Auscultation: diminished lung sounds Cardio: Rate: regular rate Rhythm: regular rhythm GI: GI Palp: Yes Soft to palpation Auscultation: normal bowel sounds Skin: Other: multiple scabbed areas to right leg. Right foot diabetic ulcer. Neuro: Speech: normal speech Extrem: General: no pedal edema Psych: Mental Status: mental status grossly normal Affect: normal affect Objective Data Vital Signs Vital Signs: Vital Signs - 24 hr 05/19/24 12:53 05/19/24 13:40 05/19/24 13:42 Temperature Pulse Rate Respiratory Rate Blood Pressure Pulse Oximetry 99 85 L 90 Oxygen Delivery Nasal Cannula Room Air Nasal Cannula Oxygen Flow Rate 2 1 05/19/24 14:00 05/19/24 20:00 05/19/24 20:36 Temperature 98.1 F Pulse Rate 76 78 Respiratory Rate 16 Blood Pressure 101/60 Pulse Oximetry 100 Oxygen Delivery Room Air Oxygen Flow Rate 05/19/24 22:00 05/20/24 06:00 Temperature 98.0 F 97.3 F L Pulse Rate 78 74 Respiratory Rate 14 12 Blood Pressure 98/58 L 98/50 L Pulse Oximetry 92 100 Oxygen Delivery Oxygen Flow Rate Intake/Output Intake/Output: Intake & Output 05/17/24 05/18/24 05/19/24 05/20/24 23:59 23:59 23:59 23:59 Intake Total 900 1180 1160 920 Output Total 1500 1050 1000 400 Balance -600 130 160 520 Meds/Results Medications: Active Medications Generic Name Dose Route Start Last Admin Trade Name Freq PRN Reason Stop Dose Admin Acetaminophen 650 mg 05/18/24 03:52 05/18/24 20:16 Acetaminophen 325 Mg Tablet PO 650 mg Q6H PRN Administration Mild Pain (1-3) or Fever Albuterol/Ipratropium 3 ml 05/17/24 01:19 Ipratropium 0.5 Mg/Albuterol Sulfate 2.5 Mg Ampul.Neb 3 Ml INHALATION QIDRT PRN shortness of breath or wheezing Aspirin 81 mg 05/17/24 09:00 05/18/24 12:42 Aspirin 81 Mg Enteric Tablet PO Not Given DAILY [facility] Atorvastatin Calcium 40 mg 05/20/24 09:00 05/20/24 08:46 Atorvastatin 40 Mg Tablet PO 40 mg DAILY [facility] Administration Carvedilol 3.125 mg 05/17/24 09:00 05/20/24 08:46 Carvedilol 3.125 Mg Tablet PO 3.125 mg Q12HR [facility] Administration Clopidogrel Bisulfate 75 mg 05/17/24 09:00 05/18/24 12:42 Clopidogrel Bisulfate 75 Mg Tablet PO Not Given DAILY [facility] Collagenase 1 applic 05/17/24 09:00 05/20/24 08:50 Collagenase Oint 30 Gm Tube TOPICAL 1 applic QAM [facility]I Administration Dextrose 12.5 gm 05/17/24 08:22 Dextrose 50% 25 Gm/50 Ml Syringe IV PUSH PRN PRN Hypoglycemia Protocol Duloxetine HCl 20 mg 05/17/24 09:00 05/20/24 08:46 Duloxetine Hcl 20 Mg Capsule. PO 20 mg DAILY [facility] Administration Empagliflozin 10 mg 05/17/24 09:00 05/20/24 08:46 Empagliflozin 10 Mg Tablet PO 10 mg DAILY [facility] Administration Furosemide 40 mg 05/17/24 09:00 05/20/24 08:46 Furosemide Inj 40 Mg/4 Ml Vial IV PUSH 40 mg BID CRISTI Administration Glucagon 1 mg 05/17/24 08:22 Glucagon For Inj 1 Mg Vial IM PRN PRN Hypoglycemia Protocol Glucose 15 gm 05/17/24 08:22 05/19/24 07:34 Glucose Oral Gel 15 Gm Of Glucse In 37.5 Gm Tube PO 15 gm PRN PRN Administration Hypoglycemia Protocol Dextrose 1,000 mls @ 100 mls/hr 05/17/24 08:22 Dextrose 5% 1,000 Ml IVPB PRN PRN Hypoglycemia Protocol Cefepime HCl 2 gm in 50 mls @ 100 mls/hr 05/17/24 10:00 05/20/24 08:49 Maxipime 2 Gm/Ns 50 Ml IVPB 100 mls/hr Q12HR [facility] Administration Doxycycline Hyclate 100 mg in 100 mls @ 100 mls/hr 05/17/24 10:00 05/20/24 08:49 Vibramycin 100 Mg/Ns 100 Ml IVPB 05/21/24 09:59 100 mls/hr Q12HR [facility]I Administration Insulin Aspart 3 units 05/17/24 08:00 05/20/24 08:47 Insulin Aspart (*Bkc) 100 Units/Ml 0.05 units/kg (3 units) Not Given SUB-Q TIDWM [facility] Insulin Aspart 2 - 5 units 05/17/24 12:00 05/20/24 08:47 Insulin Aspart (*Bkc) 100 Units/Ml SUB-Q Not Given TIDWM [facility] Protocol Insulin Aspart 1 - 2 units 05/17/24 21:00 05/19/24 20:41 Insulin Aspart (*Bkc) 100 Units/Ml SUB-Q Not Given HS [facility] Protocol Insulin Glargine 15 units 05/17/24 21:00 05/19/24 20:44 Insulin Glargine (*Bkc) 100 Units/Ml SUB-Q 15 units HS [facility] Administration Magnesium Oxide 400 mg 05/17/24 09:00 05/20/24 08:46 Magnesium Oxide 400 Mg Tablet PO 400 mg DAILY [facility] Administration Sacubitril/Valsartan 1 tab 05/17/24 09:00 05/20/24 08:46 Sacubitril/Valsartan 24-26 Mg Tablet PO 1 tab DAILY [facility] Administration Sertraline HCl 50 mg 05/17/24 09:00 05/20/24 08:46 Sertraline Hcl 50 Mg Tablet PO 50 mg DAILY [facility] Administration Radiology Results: ITS Impressions Chest X-Ray 05/16/24 17:44 IMPRESSION: Large bilateral pleural effusions, as detailed above. Chest CTA 05/16/24 19:58 IMPRESSION: No pulmonary embolus. No aortic dissection or aneurysmal dilatation. Large bilateral pleural effusions, right greater than left with adjacent compressive atelectasis. Venous Doppler Study 05/17/24 11:04 IMPRESSION: 1. No deep venous thrombosis in either lower limb. Labs Labs: Laboratory Results - last 24 hr 05/19/24 05/19/24 05/19/24 09:06 11:58 16:52 WBC RBC Hgb Hct MCV MCH MCHC RDW Plt Count MPV Immature Gran % (Auto) Neut % (Auto) Lymph % (Auto) [place] % (Auto) Eos % (Auto) Baso % (Auto) Lymph # (Auto) [place] # (Auto) Eos # (Auto) Baso # (Auto) Abs Immat Gran (auto) Absolute Neuts (auto) Absolute Nucleated RBC Nucleated RBC % Platelet Estimate Hypochromasia Anisocytosis Ovalocytes Schistocytes Sodium Potassium Chloride Carbon Dioxide Anion Gap BUN Creatinine Estim Creat Clear Calc Estimated GFR Glucose POC Capillary Glucose 115 H 150 H 141 H Calcium Magnesium Total Bilirubin AST ALT Alkaline Phosphatase Total Protein Albumin 05/19/24 05/20/24 05/20/24 20:11 06:11 07:19 WBC 7.5 RBC 3.70 L Hgb 9.2 L Hct 30.9 L MCV 83.5 MCH 24.9 L MCHC 29.8 L RDW 17.3 H Plt Count 333 MPV 11.1 H Immature Gran % (Auto) 0.3 Neut % (Auto) 75.8 H Lymph % (Auto) 9.6 L [place] % (Auto) 8.8 H Eos % (Auto) 4.7 H Baso % (Auto) 0.8 Lymph # (Auto) 0.72 L [place] # (Auto) 0.7 H Eos # (Auto) 0.4 H Baso # (Auto) 0.1 Abs Immat Gran (auto) 0.02 Absolute Neuts (auto) 5.7 Absolute Nucleated RBC 0.000 Nucleated RBC % 0.0 Platelet Estimate Adequate Hypochromasia 1+ Anisocytosis 1+ Ovalocytes 1+ Schistocytes None seen Sodium 134 L Potassium 5.0 Chloride 94 L Carbon Dioxide 31 H Anion Gap 9 BUN 29 H Creatinine 0.60 L Estim Creat Clear Calc 83 Estimated GFR > 60 Glucose 85 POC Capillary Glucose 178 H 64 L Calcium 8.3 L Magnesium 2.2 Total Bilirubin 0.8 AST 30 ALT 11 Alkaline Phosphatase 119 Total Protein 8.0 Albumin 3.2 L 05/20/24 07:56 WBC RBC Hgb Hct MCV MCH MCHC RDW Plt Count MPV Immature Gran % (Auto) Neut % (Auto) Lymph % (Auto) [place] % (Auto) Eos % (Auto) Baso % (Auto) Lymph # (Auto) [place] # (Auto) Eos # (Auto) Baso # (Auto) Abs Immat Gran (auto) Absolute Neuts (auto) Absolute Nucleated RBC Nucleated RBC % Platelet Estimate Hypochromasia Anisocytosis Ovalocytes Schistocytes Sodium Potassium Chloride Carbon Dioxide Anion Gap BUN Creatinine Estim Creat Clear Calc Estimated GFR Glucose POC Capillary Glucose 95 Calcium Magnesium Total Bilirubin AST ALT Alkaline Phosphatase Total Protein Albumin Quality VTE Prophylaxis VTE prophylaxis: mechanical ordered
[2024-05-20 12:43] LABS: Glucose Point of Care 107 mg/dl (65-105)
[2024-05-20 14:00] VITALS: BP 101/58; PULSE 77; RESP 18; TEMP 36.9; O2SAT 100
[2024-05-20 17:14] LABS: Glucose Point of Care 136 mg/dl (65-105)
[2024-05-20 21:00] VITALS: O2SAT 100
[2024-05-20 21:01] VITALS: BP 100/55; PULSE 77; RESP 16; TEMP 37; O2SAT 100
[2024-05-20 21:10] VITALS: PULSE 77
[2024-05-20 22:06] LABS: Glucose Point of Care 82 mg/dl (65-105)
[2024-05-20 23:57] LABS: Glucose Point of Care 92 mg/dl (65-105)
[2024-05-21 05:12] VITALS: BP 100/57; PULSE 74; RESP 18; TEMP 36.7; O2SAT 99
[2024-05-21 07:20] LABS: Basophils Absolute Auto 0.1 K/mm3 (0.0-0.1); Basophils Percent Auto 0.6 % (0.2-1.2); Eosinophils Absolute Auto 0.4 K/mm3 (0-0.3); Hematocrit 30.7 % (42.0-52.0); Immature Granulocyte Absolute 0.03 K/mm3 (0.00-0.031); Immature Granulocyte Percent A 0.4 % (0-0.5); Lymphocytes Absolute Auto 0.88 K/mm3 (0.9-3.2); Lymphocytes Percent Auto 11.3 % (18.3-44.2); Mean Corpuscular HGB Conc 29.3 g/dl (32-36); Mean Corpuscular Hemoglobin 24.6 pg (26-34); Mean Corpuscular Volume 83.9 fl (80-100); Mean Platelet Volume 10.8 fl (7.4-10.4); Monocytes Absolute Auto 0.8 K/mm3 (0.1-0.6); Monocytes Percent Auto 9.9 % (2.6-8.5); Neutrophils Absolute Auto 5.7 K/mm3 (1.3-6.7); Neutrophils Percent Auto 72.8 % (45.5-73.1); Platelet Count Result 333 k/mm3 (150-375); Red Blood Count 3.66 M/mm3 (4.6-6.20); Red Cell Distribution Width 17.2 % (11.5-14.5); White Blood Count 7.8 K/mm3 (4.5-10.0)
[2024-05-21 07:29] LABS: Alanine Aminotransferase 10 U/L (6-50); Albumin Level 3.1 g/dL (3.5-5.1); Alkaline Phosphatase 143 U/L (38-126); Anion Gap 5 mmol/L (4-12); Aspartate Amino Transferase 27 U/L (17-59); Bilirubin,Total 0.6 mg/dL (0.2-1.3); Blood Urea Nitrogen 25 mg/dL (9-20); Calcium 8.6 mg/dL (8.4-10.2); Carbon Dioxide 37 mmol/L (22-30); Chloride 94 mmol/L (98-107); Estimated CRCL calculation 83 ml/min; Estimated Glomerular Filt Rate > 60; Glucose 83 mg/dL (65-110); Magnesium 2.3 mg/dL (1.6-2.3); Potassium 4.1 mmol/L (3.4-5.0); Sodium 136 mmol/L (137-145)
[2024-05-21 08:05] LABS: Glucose Point of Care 103 mg/dl (65-105)
[2024-05-21 08:22] LABS: Anisocytosis 1+; Ovalocytes 1+; Platelet Estimate Adequate (Adequate)
[2024-05-21 08:24] LABS: Hypochromasia 1+; Schistocytes None Seen
[2024-05-21 08:28] LABS: Lactate Dehydrogenase 165 U/L (120-246)
[2024-05-21 08:38] LABS: NT Pro B Type Natriuretic Pept 4790 pg/mL (19.9-100)
[2024-05-21] MEDS: CEFEPIME 2 GM/NS 50 ML 2 GM/50 ML BAG IVPB (08:38)
[2024-05-21] MEDS: DOXYCYCLINE 100 MG/NS 100 ML 100 MG/100 ML BAG IVPB (08:41)
[2024-05-21] MEDS: COLLAGENASE OINT 30 GM TUBE 1 APPLIC TOPICAL (08:57)
[2024-05-21] MEDS: FUROSEMIDE INJ 40 MG/4 ML VIAL IV PUSH (08:57)
[2024-05-21 09:29] LABS: INR 1.2; Prothrombin Time 15.1 Seconds (11.1-14.7)
[2024-05-21 09:30] LABS: Partial Thromboplastin Time 31.4 Seconds (22.3-36.8)
--- NOTE | 2024-05-21 10:58 | PM.IMPN ---
Subjective Date/time seen: 05/21/24 10:58 Review of Systems Review of Systems: All systems reviewed & are unremarkable except as noted in HPI and below Objective Data Vital Signs Vital Signs: Vital Signs - 24 hr 05/20/24 14:00 05/20/24 21:00 05/20/24 21:01 Temperature 98.4 F 98.6 F Pulse Rate 77 77 Respiratory Rate 18 16 Blood Pressure 101/58 L 100/55 L Pulse Oximetry 100 100 100 Oxygen Delivery Nasal Cannula Oxygen Flow Rate 1 05/20/24 21:10 05/21/24 05:12 Temperature 98.0 F Pulse Rate 77 74 Respiratory Rate 18 Blood Pressure 100/57 L Pulse Oximetry 99 Oxygen Delivery Oxygen Flow Rate Intake/Output Intake/Output: Intake & Output 05/18/24 05/19/24 05/20/24 05/21/24 23:59 23:59 23:59 23:59 Intake Total 1180 1160 1480 Output Total 1050 1000 800 600 Balance 130 160 680 -600 Meds/Results Medications: Active Medications Generic Name Dose Route Start Last Admin Trade Name Freq PRN Reason Stop Dose Admin Acetaminophen 650 mg 05/18/24 03:52 05/18/24 20:16 Acetaminophen 325 Mg Tablet PO 650 mg Q6H PRN Administration Mild Pain (1-3) or Fever Albuterol/Ipratropium 3 ml 05/17/24 01:19 Ipratropium 0.5 Mg/Albuterol Sulfate 2.5 Mg Ampul.Neb 3 Ml INHALATION QIDRT PRN shortness of breath or wheezing Aspirin 81 mg 05/17/24 09:00 05/18/24 12:42 Aspirin 81 Mg Enteric Tablet PO Not Given DAILY [facility] Atorvastatin Calcium 40 mg 05/20/24 09:00 05/21/24 08:56 Atorvastatin 40 Mg Tablet PO Not Given DAILY [facility] Carvedilol 3.125 mg 05/17/24 09:00 05/21/24 08:56 Carvedilol 3.125 Mg Tablet PO Not Given Q12HR [facility] Clopidogrel Bisulfate 75 mg 05/17/24 09:00 05/18/24 12:42 Clopidogrel Bisulfate 75 Mg Tablet PO Not Given DAILY [facility] Collagenase 1 applic 05/17/24 09:00 05/21/24 08:57 Collagenase Oint 30 Gm Tube TOPICAL 1 applic QAM [facility] Administration Dextrose 12.5 gm 05/17/24 08:22 Dextrose 50% 25 Gm/50 Ml Syringe IV PUSH PRN PRN Hypoglycemia Protocol Duloxetine HCl 20 mg 05/17/24 09:00 05/21/24 08:56 Duloxetine Hcl 20 Mg Capsule.Dr PO Not Given DAILY [facility] Empagliflozin 10 mg 05/17/24 09:00 05/21/24 08:56 Empagliflozin 10 Mg Tablet PO Not Given DAILY [facility] Furosemide 40 mg 05/17/24 09:00 05/21/24 08:57 Furosemide Inj 40 Mg/4 Ml Vial IV PUSH 40 mg BID [facility]STI Administration Glucagon 1 mg 05/17/24 08:22 Glucagon For Inj 1 Mg Vial IM PRN PRN Hypoglycemia Protocol Glucose 15 gm 05/17/24 08:22 05/19/24 07:34 Glucose Oral Gel 15 Gm Of Glucse In 37.5 Gm Tube PO 15 gm PRN PRN Administration Hypoglycemia Protocol Dextrose 1,000 mls @ 100 mls/hr 05/17/24 08:22 Dextrose 5% 1,000 Ml IVPB PRN PRN Hypoglycemia Protocol Cefepime HCl 2 gm in 50 mls @ 100 mls/hr 05/17/24 10:00 05/21/24 08:38 Maxipime 2 Gm/Ns 50 Ml IVPB 100 mls/hr Q12HR [facility]STI Administration Insulin Aspart 3 units 05/17/24 08:00 05/21/24 08:55 Insulin Aspart (*Bkc) 100 Units/Ml 0.05 units/kg (3 units) Not Given SUB-Q TIDWM [facility] Insulin Aspart 2 - 5 units 05/17/24 12:00 05/21/24 08:55 Insulin Aspart (*Bkc) 100 Units/Ml SUB-Q Not Given TIDWM [facility] Protocol Insulin Aspart 1 - 2 units 05/17/24 21:00 05/20/24 19:56 Insulin Aspart (*Bkc) 100 Units/Ml SUB-Q Not Given HS [facility] Protocol Insulin Glargine 12 units 05/20/24 21:00 05/20/24 19:57 Insulin Glargine (*Bkc) 100 Units/Ml SUB-Q Not Given HS [facility] Magnesium Oxide 400 mg 05/17/24 09:00 05/21/24 08:57 Magnesium Oxide 400 Mg Tablet PO Not Given DAILY [facility] Sacubitril/Valsartan 1 tab 05/17/24 09:00 05/21/24 08:57 Sacubitril/Valsartan 24-26 Mg Tablet PO Not Given DAILY [facility] Sertraline HCl 50 mg 05/17/24 09:00 05/21/24 08:57 Sertraline Hcl 50 Mg Tablet PO Not Given DAILY [facility] Radiology Results: ITS Impressions Chest X-Ray 05/16/24 17:44 IMPRESSION: Large bilateral pleural effusions, as detailed above. Chest CTA 05/16/24 19:58 IMPRESSION: No pulmonary embolus. No aortic dissection or aneurysmal dilatation. Large bilateral pleural effusions, right greater than left with adjacent compressive atelectasis. Venous Doppler Study 05/17/24 11:04 IMPRESSION: 1. No deep venous thrombosis in either lower limb. Labs Labs: Laboratory Results - last 24 hr 05/20/24 05/20/24 05/20/24 12:20 17:01 19:47 WBC RBC Hgb Hct MCV MCH MCHC RDW Plt Count MPV Immature Gran % (Auto) Neut % (Auto) Lymph % (Auto) [place] % (Auto) Eos % (Auto) Baso % (Auto) Lymph # (Auto) [place] # (Auto) Eos # (Auto) Baso # (Auto) Abs Immat Gran (auto) Absolute Neuts (auto) Absolute Nucleated RBC Nucleated RBC % Platelet Estimate Hypochromasia Anisocytosis Ovalocytes Schistocytes PT INR APTT Sodium Potassium Chloride Carbon Dioxide Anion Gap BUN Creatinine Estim Creat Clear Calc Estimated GFR Glucose POC Capillary Glucose 107 H 136 H 82 Calcium Magnesium Total Bilirubin AST ALT Alkaline Phosphatase Lactate Dehydrogenase NT-Pro-B Natriuret Pep Total Protein Albumin 05/20/24 05/21/24 05/21/24 23:46 06:53 07:51 WBC 7.8 RBC 3.66 L Hgb 9.0 L Hct 30.7 L MCV 83.9 MCH 24.6 L MCHC 29.3 L RDW 17.2 H Plt Count 333 MPV 10.8 H Immature Gran % (Auto) 0.4 Neut % (Auto) 72.8 Lymph % (Auto) 11.3 L [place] % (Auto) 9.9 H Eos % (Auto) 5.0 H Baso % (Auto) 0.6 Lymph # (Auto) 0.88 L [place] # (Auto) 0.8 H Eos # (Auto) 0.4 H Baso # (Auto) 0.1 Abs Immat Gran (auto) 0.03 Absolute Neuts (auto) 5.7 Absolute Nucleated RBC 0.000 Nucleated RBC % 0.0 Platelet Estimate Adequate Hypochromasia 1+ Anisocytosis 1+ Ovalocytes 1+ Schistocytes None seen PT INR APTT Sodium 136 L Potassium 4.1 Chloride 94 L Carbon Dioxide 37 H Anion Gap 5 BUN 25 H Creatinine 0.60 L Estim Creat Clear Calc 83 Estimated GFR > 60 Glucose 83 POC Capillary Glucose 92 103 Calcium 8.6 Magnesium 2.3 Total Bilirubin 0.6 AST 27 ALT 10 Alkaline Phosphatase 143 H Lactate Dehydrogenase 165 NT-Pro-B Natriuret Pep 4790 H Total Protein 7.0 Albumin 3.1 L 05/21/24 09:06 WBC RBC Hgb Hct MCV MCH MCHC RDW Plt Count MPV Immature Gran % (Auto) Neut % (Auto) Lymph % (Auto) [place] % (Auto) Eos % (Auto) Baso % (Auto) Lymph # (Auto) [place] # (Auto) Eos # (Auto) Baso # (Auto) Abs Immat Gran (auto) Absolute Neuts (auto) Absolute Nucleated RBC Nucleated RBC % Platelet Estimate Hypochromasia Anisocytosis Ovalocytes Schistocytes PT 15.1 H INR 1.2 APTT 31.4 Sodium Potassium Chloride Carbon Dioxide Anion Gap BUN Creatinine Estim Creat Clear Calc Estimated GFR Glucose POC Capillary Glucose Calcium Magnesium Total Bilirubin AST ALT Alkaline Phosphatase Lactate Dehydrogenase NT-Pro-B Natriuret Pep Total Protein Albumin
[2024-05-21 11:36] LABS: Glucose Point of Care 97 mg/dl (65-105)
--- NOTE | 2024-05-21 14:31 | P.PNCA_ITS ---
Progress Note: A&P Assessment and Plan (1) Heart failure with reduced ejection fraction: Code(s): I50.20 - Unspecified systolic (congestive) heart failure Status: Chronic (2) PAOD (peripheral arterial occlusive disease): Code(s): I77.9 - Disorder of arteries and arterioles, unspecified Status: Acute (3) Hypertension associated with diabetes: Code(s): E11.59 - Type 2 diabetes mellitus with other circulatory complications; I15.2 - Hypertension secondary to endocrine disorders Status: Acute Plan 73-year-old man with chronic systolic heart failure status post Bi V ICD in setting of significant heart block (MOBAP 2019), peripheral vascular disease status post left BKA, diabetes, and hypertension who initially presented with shortness of breath found to have pleural effusions now awaiting thoracentesis Acute on chronic systolic heart failure -continue Lasix 40 mg IV b.i.d. -he is on Entresto 24-26 mg p.o. b.i.d., Coreg 3.125 mg p.o. b.i.d., and Jardiance 10 mg p.o. daily -if no plans for thoracentesis, would recommend repeat chest x-ray Peripheral vascular disease status post left BKA -dual anti-platelet therapy on hold in anticipation of thoracentesis Hypertension -well controlled on Entresto 24-26 mg p.o. b.i.d. Subjective Date/time seen: 05/21/24 14:31 Interval history: No chest pain or shortness of breath. He just wants to go back to his nursing facility. Review of Systems Cardiovascular: Cardiovascular: Reports as per HPI Respiratory: Respiratory: Reports as per HPI Exam Const: General: comfortable Eyes: EOM: EOMs intact bilaterally Neck: Neck: no JVD Resp: Effort & Inspection: normal respiratory effort Auscultation: clear to auscultation bilaterally Cardio: Rate: regular rate Rhythm: regular rhythm Extrem: General: no pedal edema Objective Data Vital Signs Vital Signs: Vital Signs - 24 hr 05/20/24 21:00 05/20/24 21:01 05/20/24 21:10 Temperature 37.0 C Pulse Rate 77 77 Respiratory Rate 16 Blood Pressure 100/55 L Pulse Oximetry 100 100 Oxygen Delivery Nasal Cannula Oxygen Flow Rate 1 05/21/24 05:12 Temperature 36.7 C Pulse Rate 74 Respiratory Rate 18 Blood Pressure 100/57 L Pulse Oximetry 99 Oxygen Delivery Oxygen Flow Rate Intake/Output Intake/Output: Intake & Output 05/18/24 05/19/24 05/20/24 05/21/24 23:59 23:59 23:59 23:59 Intake Total 1180 1160 1480 Output Total 1050 1000 800 600 Balance 130 160 680 -600 Meds/Results Medications: Active Medications Generic Name Dose Route Start Last Admin Trade Name Freq PRN Reason Stop Dose Admin Acetaminophen 650 mg 05/18/24 03:52 05/18/24 20:16 Acetaminophen 325 Mg Tablet PO 650 mg Q6H PRN Administration Mild Pain (1-3) or Fever Albuterol/Ipratropium 3 ml 05/17/24 01:19 Ipratropium 0.5 Mg/Albuterol Sulfate 2.5 Mg Ampul.Neb 3 Ml INHALATION QIDRT PRN shortness of breath or wheezing Aspirin 81 mg 05/17/24 09:00 05/18/24 12:42 Aspirin 81 Mg Enteric Tablet PO Not Given DAILY [facility] Atorvastatin Calcium 40 mg 05/20/24 09:00 05/21/24 08:56 Atorvastatin 40 Mg Tablet PO Not Given DAILY [facility] Carvedilol 3.125 mg 05/17/24 09:00 05/21/24 08:56 Carvedilol 3.125 Mg Tablet PO Not Given Q12HR [facility] Clopidogrel Bisulfate 75 mg 05/17/24 09:00 05/18/24 12:42 Clopidogrel Bisulfate 75 Mg Tablet PO Not Given DAILY [facility] Collagenase 1 applic 05/17/24 09:00 05/21/24 08:57 Collagenase Oint 30 Gm Tube TOPICAL 1 applic QAM [facility] Administration Dextrose 12.5 gm 05/17/24 08:22 Dextrose 50% 25 Gm/50 Ml Syringe IV PUSH PRN PRN Hypoglycemia Protocol Duloxetine HCl 20 mg 05/17/24 09:00 05/21/24 08:56 Duloxetine Hcl 20 Mg Capsule.Dr PO Not Given DAILY [facility] Empagliflozin 10 mg 05/17/24 09:00 05/21/24 08:56 Empagliflozin 10 Mg Tablet PO Not Given DAILY [facility] Furosemide 40 mg 05/17/24 09:00 05/21/24 08:57 Furosemide Inj 40 Mg/4 Ml Vial IV PUSH 40 mg BID CRISTI Administration Glucagon 1 mg 05/17/24 08:22 Glucagon For Inj 1 Mg Vial IM PRN PRN Hypoglycemia Protocol Glucose 15 gm 05/17/24 08:22 05/19/24 07:34 Glucose Oral Gel 15 Gm Of Glucse In 37.5 Gm Tube PO 15 gm PRN PRN Administration Hypoglycemia Protocol Dextrose 1,000 mls @ 100 mls/hr 05/17/24 08:22 Dextrose 5% 1,000 Ml IVPB PRN PRN Hypoglycemia Protocol Cefepime HCl 2 gm in 50 mls @ 100 mls/hr 05/17/24 10:00 05/21/24 08:38 Maxipime 2 Gm/Ns 50 Ml IVPB 100 mls/hr Q12HR CRISTI Administration Insulin Aspart 3 units 05/17/24 08:00 05/21/24 08:55 Insulin Aspart (*Bkc) 100 Units/Ml 0.05 units/kg (3 units) Not Given SUB-Q TIDWM [facility] Insulin Aspart 2 - 5 units 05/17/24 12:00 05/21/24 08:55 Insulin Aspart (*Bkc) 100 Units/Ml SUB-Q Not Given TIDWM [facility] Protocol Insulin Aspart 1 - 2 units 05/17/24 21:00 05/20/24 19:56 Insulin Aspart (*Bkc) 100 Units/Ml SUB-Q Not Given HS [facility] Protocol Insulin Glargine 12 units 05/20/24 21:00 05/20/24 19:57 Insulin Glargine (*Bkc) 100 Units/Ml SUB-Q Not Given HS [facility] Magnesium Oxide 400 mg 05/17/24 09:00 05/21/24 08:57 Magnesium Oxide 400 Mg Tablet PO Not Given DAILY [facility] Sacubitril/Valsartan 1 tab 05/17/24 09:00 05/21/24 08:57 Sacubitril/Valsartan 24-26 Mg Tablet PO Not Given DAILY [facility] Sertraline HCl 50 mg 05/17/24 09:00 05/21/24 08:57 Sertraline Hcl 50 Mg Tablet PO Not Given DAILY [facility] Radiology Results: ITS Impressions Chest X-Ray 05/16/24 17:44 IMPRESSION: Large bilateral pleural effusions, as detailed above. Chest CTA 05/16/24 19:58 IMPRESSION: No pulmonary embolus. No aortic dissection or aneurysmal dilatation. Large bilateral pleural effusions, right greater than left with adjacent compressive atelectasis. Venous Doppler Study 05/17/24 11:04 IMPRESSION: 1. No deep venous thrombosis in either lower limb. Labs Labs: Laboratory Results - last 24 hr 05/20/24 05/20/24 05/20/24 17:01 19:47 23:46 WBC RBC Hgb Hct MCV MCH MCHC RDW Plt Count MPV Immature Gran % (Auto) Neut % (Auto) Lymph % (Auto) [place] % (Auto) Eos % (Auto) Baso % (Auto) Lymph # (Auto) [place] # (Auto) Eos # (Auto) Baso # (Auto) Abs Immat Gran (auto) Absolute Neuts (auto) Absolute Nucleated RBC Nucleated RBC % Platelet Estimate Hypochromasia Anisocytosis Ovalocytes Schistocytes PT INR APTT Sodium Potassium Chloride Carbon Dioxide Anion Gap BUN Creatinine Estim Creat Clear Calc Estimated GFR Glucose POC Capillary Glucose 136 H 82 92 Calcium Magnesium Total Bilirubin AST ALT Alkaline Phosphatase Lactate Dehydrogenase NT-Pro-B Natriuret Pep Total Protein Albumin 05/21/24 05/21/24 05/21/24 06:53 07:51 09:06 WBC 7.8 RBC 3.66 L Hgb 9.0 L Hct 30.7 L MCV 83.9 MCH 24.6 L MCHC 29.3 L RDW 17.2 H Plt Count 333 MPV 10.8 H Immature Gran % (Auto) 0.4 Neut % (Auto) 72.8 Lymph % (Auto) 11.3 L [place] % (Auto) 9.9 H Eos % (Auto) 5.0 H Baso % (Auto) 0.6 Lymph # (Auto) 0.88 L [place] # (Auto) 0.8 H Eos # (Auto) 0.4 H Baso # (Auto) 0.1 Abs Immat Gran (auto) 0.03 Absolute Neuts (auto) 5.7 Absolute Nucleated RBC 0.000 Nucleated RBC % 0.0 Platelet Estimate Adequate Hypochromasia 1+ Anisocytosis 1+ Ovalocytes 1+ Schistocytes None seen PT 15.1 H INR 1.2 APTT 31.4 Sodium 136 L Potassium 4.1 Chloride 94 L Carbon Dioxide 37 H Anion Gap 5 BUN 25 H Creatinine 0.60 L Estim Creat Clear Calc 83 Estimated GFR > 60 Glucose 83 POC Capillary Glucose 103 Calcium 8.6 Magnesium 2.3 Total Bilirubin 0.6 AST 27 ALT 10 Alkaline Phosphatase 143 H Lactate Dehydrogenase 165 NT-Pro-B Natriuret Pep 4790 H Total Protein 7.0 Albumin 3.1 L 05/21/24 11:34 WBC RBC Hgb Hct MCV MCH MCHC RDW Plt Count MPV Immature Gran % (Auto) Neut % (Auto) Lymph % (Auto) [place] % (Auto) Eos % (Auto) Baso % (Auto) Lymph # (Auto) [place] # (Auto) Eos # (Auto) Baso # (Auto) Abs Immat Gran (auto) Absolute Neuts (auto) Absolute Nucleated RBC Nucleated RBC % Platelet Estimate Hypochromasia Anisocytosis Ovalocytes Schistocytes PT INR APTT Sodium Potassium Chloride Carbon Dioxide Anion Gap BUN Creatinine Estim Creat Clear Calc Estimated GFR Glucose POC Capillary Glucose 97 Calcium Magnesium Total Bilirubin AST ALT Alkaline Phosphatase Lactate Dehydrogenase NT-Pro-B Natriuret Pep Total Protein Albumin
[2024-05-21 15:04] LABS: pH Pleural Fluid 7.308 (7.210-7.500)
--- NOTE | 2024-05-21 15:17 | P.DS_ITS ---
DS: Admitting Diagnosis Discharge Date 05/21/2024 Admitting Diagnosis Shortness of breath. 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 mellitus due to underlying condition: Qualifiers: Diabetic foot ulcer location: other Non-pressure ulcer stage: with necrosis of bone Qualified Code(s): E08.621 - Diabetes mellitus due to underlying condition with foot ulcer; 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 Code(s): E08.621 - Diabetes mellitus due to underlying condition with foot ulcer; L97.519 - Non-pressure chronic ulcer of other part of right foot with unspecified severity Status: Acute (6) Insulin dependent type 2 diabetes mellitus: Code(s): E11.9 - Type 2 diabetes mellitus without complications; Z79.4 - terminal supervisor (current) use of insulin Status: Acute (7) PAOD (peripheral arterial occlusive disease): Code(s): I77.9 - Disorder of arteries and arterioles, unspecified Status: Acute DS: Summary Hospital Course Hospital Course: * Chest X-Ray 05/16/24 17:44 IMPRESSION: Large bilateral pleural effusions, as detailed above. * Chest CTA 05/16/24 19:58 IMPRESSION: No pulmonary embolus. No aortic dissection or aneurysmal dilatation. Large bilateral pleural effusions, right greater than left with adjacent compressive atelectasis. * Venous Doppler Study 05/17/24 11:04 IMPRESSION: 1. No deep venous thrombosis in either lower limb. * BNP 6800 * Furosemide 40 mg ivp BID * Echocardiogram 05/17/24 showed: Summary 1. The left ventricle is normal in size with severely reduced systolic function. There is severe concentric left ventricular hypertrophy. The left ventricular ejection fraction is visually estimated to be 15-20%. 2. The right ventricle is normal in size with reduced systolic function. * Cardiology consult, appreciate recommendations. * Device interrogation ordered. * Heart failure GDMT: Continue Greta, Venus Glover. * 05/21/24: right pleural effusion successful ultrasound-guided thoracentesis yielding 700 mL of dark maroon-colored fluid. * 05/21/24: post chest X-ray: FINDINGS The left mid lung is partially obscured due to pacemaker/AICD generator. Wires project over the right atrium, coronary sinus and right ventricle. Decreased right-sided pleural effusion when compared with previous examination. Right-sided pleural thickening persists. Large left-sided pleural effusion remains. IMPRESSION: Decreased right-sided pleural effusion without pneumothorax following right- sided thoracentesis. * Discussed with Dr. Manzo Wireless Communications Engineer and patient is ok for discharge. We will await report from pleural fluid drainage for next treatment steps. * Patient transitioned to back to oral Furosemide. * Patient completed antibiotics. * Patient discharged back to [facility]. Status at Discharge Functional status at discharge: wheelchair bound Overall status at discharge: patient is progressing back to baseline Time Spent with Patient Time attestation: Total time spent providing and/or coordinating discharge services: Exam Const: General: comfortable and no acute distress Resp: Effort & Inspection: normal respiratory effort Auscultation: diminished lung sounds Cardio: Rate: regular rate Rhythm: regular rhythm GI: GI Palp: Yes Soft to palpation Auscultation: normal bowel sounds Skin: Other: multiple scabbed areas to right leg. Right foot diabetic ulcer. Extrem: General: no pedal edema Psych: Mental Status: mental status grossly normal Affect: normal affect DS: Data Data Completed and Pending Labs on day of discharge: Labs from last 24 hours 05/21/24 05/21/24 05/21/24 14:30 14:19 11:34 WBC RBC Hgb Hct MCV MCH MCHC RDW Plt Count MPV Immature Gran % (Auto) Neut % (Auto) Lymph % (Auto) [place] % (Auto) Eos % (Auto) Baso % (Auto) Lymph # (Auto) [place] # (Auto) Eos # (Auto) Baso # (Auto) Abs Immat Gran (auto) Absolute Neuts (auto) Absolute Nucleated RBC Nucleated RBC % Platelet Estimate Hypochromasia Anisocytosis Ovalocytes Schistocytes PT INR APTT Sodium Potassium Chloride Carbon Dioxide Anion Gap BUN Creatinine Estim Creat Clear Calc Estimated GFR Glucose POC Capillary Glucose 97 Calcium Magnesium Total Bilirubin AST ALT Alkaline Phosphatase Lactate Dehydrogenase NT-Pro-B Natriuret Pep Total Protein Albumin Pleural Fluid Source Pending Pleural Color Pending Pleural Appearance Pending Pleural pH 7.308 Pleural RBC Pending Pleural Nuc Cells Pending Pleural Total Protein Pending Pleural LDH Pending Pleural Glucose Pending 05/21/24 05/21/24 05/21/24 09:06 07:51 06:53 WBC 7.8 RBC 3.66 L Hgb 9.0 L Hct 30.7 L MCV 83.9 MCH 24.6 L MCHC 29.3 L RDW 17.2 H Plt Count 333 MPV 10.8 H Immature Gran % (Auto) 0.4 Neut % (Auto) 72.8 Lymph % (Auto) 11.3 L [place] % (Auto) 9.9 H Eos % (Auto) 5.0 H Baso % (Auto) 0.6 Lymph # (Auto) 0.88 L [place] # (Auto) 0.8 H Eos # (Auto) 0.4 H Baso # (Auto) 0.1 Abs Immat Gran (auto) 0.03 Absolute Neuts (auto) 5.7 Absolute Nucleated RBC 0.000 Nucleated RBC % 0.0 Platelet Estimate Adequate Hypochromasia 1+ Anisocytosis 1+ Ovalocytes 1+ Schistocytes None seen PT 15.1 H INR 1.2 APTT 31.4 Sodium 136 L Potassium 4.1 Chloride 94 L Carbon Dioxide 37 H Anion Gap 5 BUN 25 H Creatinine 0.60 L Estim Creat Clear Calc 83 Estimated GFR > 60 Glucose 83 POC Capillary Glucose 103 Calcium 8.6 Magnesium 2.3 Total Bilirubin 0.6 AST 27 ALT 10 Alkaline Phosphatase 143 H Lactate Dehydrogenase 165 NT-Pro-B Natriuret Pep 4790 H Total Protein 7.0 Albumin 3.1 L Pleural Fluid Source Pleural Color Pleural Appearance Pleural pH Pleural RBC Pleural Nuc Cells Pleural Total Protein Pleural LDH Pleural Glucose 05/20/24 05/20/24 05/20/24 23:46 19:47 17:01 WBC RBC Hgb Hct MCV MCH MCHC RDW Plt Count MPV Immature Gran % (Auto) Neut % (Auto) Lymph % (Auto) [place] % (Auto) Eos % (Auto) Baso % (Auto) Lymph # (Auto) [place] # (Auto) Eos # (Auto) Baso # (Auto) Abs Immat Gran (auto) Absolute Neuts (auto) Absolute Nucleated RBC Nucleated RBC % Platelet Estimate Hypochromasia Anisocytosis Ovalocytes Schistocytes PT INR APTT Sodium Potassium Chloride Carbon Dioxide Anion Gap BUN Creatinine Estim Creat Clear Calc Estimated GFR Glucose POC Capillary Glucose 92 82 136 H Calcium Magnesium Total Bilirubin AST ALT Alkaline Phosphatase Lactate Dehydrogenase NT-Pro-B Natriuret Pep Total Protein Albumin Pleural Fluid Source Pleural Color Pleural Appearance Pleural pH Pleural RBC Pleural Nuc Cells Pleural Total Protein Pleural LDH Pleural Glucose Preliminary micro results at discharge 05/16/24 16:54 Blood Culture - Preliminary Blood 05/16/24 17:00 Blood Culture - Preliminary Blood Discharge Plan Discharge Attending physician on discharge: Sky Salgado Consulting providers: Renata Tom; Asher Swift Discharging Clinician: Julia Nj Anticipated Discharge Date/Time: 05/21/24 16:15 Patient Disposition: SNF Activity: may shower and as tolerated Diet: diabetic Discharge Instructions: * Call provider if you develop shortness of breath, sputum with color, or fever >101. * Follow up with historic clothing and costume maker. Thank you for entrusting [facility] with your healthcare! Patient Instructions: Heart Failure (DC), Pain Management in Older Adults (DC), Pleural Effusion (DC) Patient Language: [place] Stand Alone Forms: General Discharge Information Follow-up/Referrals: Asher Swift MD [Physician] - 2 Weeks Deion Pereira MD [Primary Care Provider] - 1 Week Discharge Medications: New Santyl 250 unit/gram Ointment 1 applic topical QAM Qty: 30 0RF Rx Instructions: Apply to right posterior heel daily, cover, and wrap. atorvastatin 40 mg Tablet 40 mg PO DAILY Qty: 30 0RF Continued Jardiance 10 mg Tablet 10 mg PO DAILY Qty: 30 0RF cholecalciferol (vitamin D3) [Vitamin D3] 25 mcg (1,000 unit) Tablet 1,000 unit PO DAILY Qty: 30 0RF carvedilol [Coreg] 3.125 mg Tablet 3.125 mg PO Q12H 30 Days Qty: 60 0RF magnesium oxide 400 mg (241.3 mg magnesium) tablet 500 mg PO DAILY Qty: 30 0RF ipratropium-albuterol 0.5 mg-3 mg(2.5 mg base)/3 mL solution for nebulization 3 ml INHALATION QID PRN (Reason: shortness of breath or wheezing) Glucagon Emergency Kit (human) 1 mg recon soln 1 mg IM .COMPLEX PRN (Reason: hypoglycemia) Rx Instructions: 1 mg intramuscularly up to 3 times 15 minutes apart PRN; sertraline 50 mg tablet 50 mg PO DAILY insulin lispro [Humalog KwikPen Insulin] 100 unit/mL insulin pen 1 sliding scale dose SUBCUT AC insulin glargine [Lantus Solostar U-100 Insulin] 100 unit/mL (3 mL) insulin pen 15 unit SUBCUT HS clopidogrel 75 mg tablet 75 mg PO DAILY furosemide 40 mg tablet 40 mg PO BID sacubitril-valsartan [Entresto] 24-26 mg tablet 1 tablet PO DAILY aspirin 81 mg Capsule 81 mg PO DAILY miconazole nitrate 2 % cream 1 applic topical BID Qty: 28 0RF duloxetine 20 mg Capsule,Delayed Release(Dr/Ec) 20 mg PO DAILY Date of admission: 05/16/24 21:15 Primary Care Provider: Deion Pereira Admitting Provider: Oscar Ruvalcaba V. Attending physician on admission: Oscar Ruvalcaba V. Condition: Stable Hospitalist MIPS Heart Failure (Exclusion) Patient has history of Heart Transplant or Left Ventricular Assistive Device?: No IF YES, STOP HERE Heart Failure (Qualifier) Patient has current or prior documentation of LVEF less than or equal to 40%, or mod/servere depressed LVSF?: Yes IF NO, STOP HERE If Yes, Heart Failure (Qualifier) Patient was prescribed or already taking an Angiotensin-Converting Enzyme (JOSSY) Inhibitor, or Antiotensin Receptor Gerald (ARB): Yes Patient was prescribed or already taking bisoprolol, carvedilol, or sustained release metoprolol succinate: Yes
[2024-05-21 15:48] VITALS: BP 122/81; PULSE 97; RESP 20; TEMP 37; O2SAT 100
[2024-05-21 15:57] LABS: Appearance Pleural Fluid Bloody (Clear); Pleural fluid source Pleural fluid
[2024-05-21 15:58] LABS: Color Pleural Fluid Red (Colorless); Lymphocytes Pleural Fluid 90 %; Monocytes Pleural Fluid 8 %; Neutrophils Pleural Fluid 2 % (0-25); Nucleated Cell Pleural Fluid 167 /uL (0-1000); RBC Pleural Fluid 24000 /uL (0-10000)
[2024-05-21 16:47] LABS: Glucose Point of Care 111 mg/dl (65-105)
--- NOTE | 2024-05-21 16:51 | PCCCNOTE ---
Pt's nurse called for a discharge packet back to [facility]. Provided requests forms and contact information to the facility as requested. Also shared a covid test with results would be needed prior to discharge.-bita.
[2024-05-21 17:41] LABS: SARS-CoV-2 RNA PCR Negative (Negative)
[2024-05-21 18:25] LABS: Glucose Point of Care 75 mg/dl (65-105)
[2024-05-28 09:44] LABS: Glucose Pleural Fluid 31 mg/dL
== END 2024-05-21 20:16 | DRG 291 ==
LOC: ANHED 16:18 → ANH3MEDSUR 05-17 04:46
PROVIDERS: Internal Medicine Critical Care Medicine; Internal Medicine Pulmonary Disease; Nurse Practitioner Family; Admitting Provider Internal Medicine; Emergency Provider Emergency Medicine; PCP Family Medicine; Visit Provider Internal Medicine
DX: I11.0 Hypertensive heart disease with heart failure (principal); I50.43 Acute on chronic combined systolic (congestive) and diastolic (congestive) heart failure; E87.3 Alkalosis; J90 Pleural effusion, not elsewhere classified; I47.10 Supraventricular tachycardia, unspecified; I42.8 Other cardiomyopathies; E11.621 Type 2 diabetes mellitus with foot ulcer; E11.42 Type 2 diabetes mellitus with diabetic polyneuropathy; E11.51 Type 2 diabetes mellitus with diabetic peripheral angiopathy without gangrene; E55.9 Vitamin D deficiency, unspecified; E78.5 Hyperlipidemia, unspecified; I25.10 Atherosclerotic heart disease of native coronary artery without angina pectoris; I77.9 Disorder of arteries and arterioles, unspecified; L97.514 Non-pressure chronic ulcer of other part of right foot with necrosis of bone; Z89.512 Acquired absence of left leg below knee; Z95.0 Presence of cardiac pacemaker; Z99.3 Dependence on wheelchair; Z66 Do not resuscitate; Z79.82 Long term (current) use of aspirin; Z79.02 Long term (current) use of antithrombotics/antiplatelets; Z79.4 Long term (current) use of insulin; Z20.822 Contact with and (suspected) exposure to COVID-19; Z88.0 Allergy status to penicillin
CPT/HCPCS: 32555; 36415; 36600; 71045; 71275; 80053; 81003; 82565; 82805; 82945; 82947; 82948; 83605; 83615; 83690; 83735; 83880; 83986; 84100; 84155; 84157; 84439; 84443; 84480; 84484; 85018; 85025; 85380; 85610; 85730; 87015; 87040; 87116; 87205; 87206; 87635; 87637; 87641; 89051; 93005; 93970; 96365; 96367; 96375; 99285; A9270; C8929; J0692; J1815; J1940; J3370; Q9957; Q9967

== ENCOUNTER 2024-05-30 05:39 | Emergency (ER) | payer MEDICARE, MEDICAID, SELFPAY ==
[2024-05-30] VITALS (21 sets, daily range): BP systolic 0–134; BP diastolic 0–72; PULSE 54–108; RESP 0–36; TEMP 36.3; O2SAT 0–100
--- NOTE | ~2024-05-30 | XR_ITS ---
Clinical Indication: Shortness of breath PA and lateral views of the chest: Comparison: 05/21/2024 Findings: Moderate bilateral pleural effusions are present with moderate to advanced bibasilar pulmon nataly edema and bibasilar atelectatic change.. Cardiomediastinal silhouette is stable, with pacemaker device. Bones and soft tissues are unremarkable. Impression: Moderate bilateral pleural effusions with moderate bibasilar pulmonary edema/atelectasis. Reviewed, dictated and finalized at location [facility]. [facility] Impression: Moderate bilateral pleural effusions with moderate bibasilar pulmonary edema/at electasis.
--- NOTE | 2024-05-30 05:44 | ECG_ITS ---
Test Date: 2024-05-30 05:46:18 Measurements Intervals [place] Rate: 101 P: 268 MT: 281 QRS: 261 QRSD: 176 T: 76 QT: 424 QTc: 552 Interpretive Statements ATRIAL SENSE- ELECTRONIC VENTRICULAR PACEMAKER UNDERLYING SINUS TACHYCARDIA NO FURTHER INTERPRETATION IS POSSIBLE ATYPICAL ECG Compared to ECG 05/16/2024 18:31:45 HEART RATE HAS INCREASED Electronically Signed On 05-30-2024 07:09:05 RHINOLOGIST by Jovanni Goodman D.O.
[2024-05-30 06:05] LABS: Basophils Absolute Auto 0.1 K/mm3 (0.0-0.1); Basophils Percent Auto 0.6 % (0.2-1.2); Eosinophils Absolute Auto 0.1 K/mm3 (0-0.3); Eosinophils Percent Auto 1.3 % (0-4.4); Hematocrit 35.3 % (42.0-52.0); Immature Granulocyte Absolute 0.02 K/mm3 (0.00-0.031); Immature Granulocyte Percent A 0.2 % (0-0.5); Lymphocytes Absolute Auto 0.71 K/mm3 (0.9-3.2); Lymphocytes Percent Auto 8.7 % (18.3-44.2); Mean Corpuscular HGB Conc 28.3 g/dl (32-36); Mean Corpuscular Hemoglobin 24.9 pg (26-34); Mean Corpuscular Volume 87.8 fl (80-100); Mean Platelet Volume 10.4 fl (7.4-10.4); Monocytes Absolute Auto 0.6 K/mm3 (0.1-0.6); Monocytes Percent Auto 7.4 % (2.6-8.5); Neutrophils Absolute Auto 6.7 K/mm3 (1.3-6.7); Neutrophils Percent Auto 81.8 % (45.5-73.1); Platelet Count Result 421 k/mm3 (150-375); Red Blood Count 4.02 M/mm3 (4.6-6.20); Red Cell Distribution Width 16.7 % (11.5-14.5); White Blood Count 8.2 K/mm3 (4.5-10.0)
[2024-05-30 06:22] LABS: Alanine Aminotransferase 16 U/L (6-50); Albumin Level 3.7 g/dL (3.5-5.1); Alkaline Phosphatase 168 U/L (38-126); Aspartate Amino Transferase 31 U/L (17-59); Bilirubin,Total 0.8 mg/dL (0.2-1.3); Blood Urea Nitrogen 33 mg/dL (9-20); Carbon Dioxide > 40 mmol/L (22-30); Chloride 91 mmol/L (98-107); Estimated CRCL calculation 76 ml/min; Estimated Glomerular Filt Rate > 60; Glucose 123 mg/dL (65-110); Potassium 4.5 mmol/L (3.4-5.0); Sodium 140 mmol/L (137-145)
[2024-05-30 06:46] LABS: Influenza A QL RT-PCR Negative (Negative); Influenza B QL RT-PCR Negative (Negative); RSV RNA, RT-PCR Negative (Negative); SARS-CoV-2 RNA PCR Negative (Negative)
[2024-05-30 06:59] LABS: Anisocytosis 1+; Hypochromasia 1+; Platelet Estimate Increased (Adequate); Schistocytes None Seen
--- NOTE | 2024-05-30 07:18 | ED.SOB ---
HPI - SOB/Dyspnea General Chief Complaint: Shortness of Breath/Dyspnea Stated Complaint: sob Time Seen by Provider: 05/30/24 06:58 History of Present Illness HPI Narrative: Pt presents with worsening SOB. Pt recently admitted with pneumonia. Pt says he has been getting more SOB over last several days. Pt denies fever. Pt has a history of CHF. Pt denies CP. Pt unsure of weight gain and denies edema to legs. Related Data Home Medications ?Medication ?Instructions ?Recorded ?Confirmed ?Last Taken ?Type duloxetine 20 mg capsule,delayed 20 mg PO DAILY 08/25/23 05/30/24 05/16/24 History release aspirin 81 mg capsule 81 mg PO DAILY 10/09/23 05/30/24 05/16/24 History furosemide 40 mg tablet 40 mg PO BID 10/09/23 05/30/24 05/16/24 History sacubitril 24 mg-valsartan 26 mg 1 tablet PO DAILY 10/09/23 05/30/24 05/16/24 History tablet (Entresto) clopidogrel 75 mg tablet 75 mg PO DAILY 05/16/24 05/30/24 05/16/24 History glucagon 1 mg solution for 1 mg IM .COMPLEX PRN hypoglycemia 05/16/24 05/30/24 Unknown History injection (Glucagon Emergency Kit) insulin glargine 100 unit/mL (3 15 unit subcut HS 05/16/24 05/30/24 Unknown History mL) subcutaneous pen (Lantus Solostar U-100 Insulin) insulin lispro 100 unit/mL 1 sliding scale dose subcut AC 05/16/24 05/30/24 05/16/24 History subcutaneous pen (Humalog KwikPen (U-100) Insulin) ipratropium 0.5 mg-albuterol 3 mg 3 ml inhalation QID PRN shortness 05/16/24 05/30/24 05/16/24 History (2.5 mg base)/3 mL nebulization of breath or wheezing soln sertraline 50 mg tablet 50 mg PO DAILY 05/16/24 05/16/24 05/16/24 History Allergies Allergy/AdvReac Type Severity Reaction Status Date / Time Penicillins Allergy Mild Unknown Verified 05/30/24 07:40 Review of Systems Review of Systems: All systems reviewed & are unremarkable except as noted in HPI and below PMFSH Past Medical History Medical History Orthostatic hypotension Depression Complete heart block Nonsustained ventricular tachycardia Diabetic peripheral neuropathy Insulin dependent type 2 diabetes mellitus Paroxysmal atrial tachycardia Heart failure with reduced ejection fraction Nonischemic cardiomyopathy Vitamin D deficiency Dyslipidemia Essential (primary) hypertension Peripheral arterial disease Apical mural thrombus Shoulder fracture, left Surgical History Surgical History History of left below knee amputation History of complete ray amputation of third toe of right foot (05/2020) Due to osteomyelitis. History of permanent cardiac pacemaker placement (07/2019) Medtronic BiV-ICD placed at [facility]. Family History Family History Other No problems noted. Sibling Acute myocardial infarction Mother Lung cancer Social History Social History Social History: Lives alone in an apartment. He does not drive. Works for [employer]. Rare alcohol use. Lifelong nonsmoker. No drug use. No pets Surrogate medical decision maker: minesh Hurst. Code status: Full code. Smoking status: Former smoker Tobacco type: cigarettes Second hand tobacco smoke exposure: No Alcohol intake: former Substance use: never Substance use type: does not use Other substance usage details: once a year has an expensive bottle of alcohol Do You Feel Safe in your Home?: Yes Lack of Transportation: No Lack of Food: Never True Current Housing: I Have Housing Concerned About Future Housing: No Difficulty Paying Gas/Electric Bills: No Difficulty Paying for Meds: No Currently Unemployed: No Education: High School Diploma/GED Difficulty w/ Childcare or Family Care: No Living arrangements: with family Additional living arrangements comments: Lives with [id number]. . His in only daughter were killed in a car accident. 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 Spiritual care concerns: No Agree to blood products: Yes Exam Const: General: healthy appearing and no acute distress Nutritional Appearance: well nourished Orientation/consciousness: patient oriented x3 Limitations: no limitations HENMT: Mouth: Yes Normal oral and palatal mucosa present Neck: Neck: normal visual inspection and no lymphadenopathy Chest: Chest palpation & inspection: normal inspection of the chest Resp: Effort & Inspection: tachypneic Auscultation: crackles Cardio: Rate: regular rate Rhythm: regular rhythm GI: GI Palp: Yes Soft to palpation and No Tenderness to palpation present (GI) Auscultation: normal bowel sounds Skin: General skin exam: normal color Rashes: no rashes Wounds: no wounds Neuro: General: patient oriented x3, moves all extremities, no meningeal signs and no focal motor deficits Cranial nerves: Yes Nystagmus not present Speech: normal speech Extrem: General: normal to inspection and no clubbing, cyanosis or edema Psych: Mental Status: mental status grossly normal Affect: normal affect Attitude: cooperative Course Vital Signs Vital signs: Vital Signs Temperature 97.3 F L 05/30/24 05:38 Pulse Rate 104 H 05/30/24 05:38 Respiratory Rate 28 H 05/30/24 05:38 Blood Pressure 114/72 05/30/24 05:38 Pulse Oximetry 100 05/30/24 05:38 Oxygen Delivery Room Air 05/30/24 05:38 Temperature 97.3 F L 05/30/24 05:38 Pulse Rate 54 L 05/30/24 13:00 Respiratory Rate 0 L 05/30/24 13:00 Blood Pressure 0/0 L 05/30/24 13:00 Pulse Oximetry 0 L 05/30/24 13:00 Oxygen Delivery BiPAP 05/30/24 12:41 Oxygen Flow Rate 1 05/30/24 07:57 MDM - SOB/Dyspnea MDM Narrative Medical decision making narrative: Pt presents with worsening SOB after recent hospital stay. Suspect CHF but will rule out pneumonia and UTI and give neb and dose of lasix. ABG retaining co2 will start on bipap. discussed with Dr Guevara will accept pt notified manager lab team of consult on this patient since Dr Fung is doing cath on STEMi pt right now. Repeat ABG worse. Pt keeps pulling off bipap. talked with patient and eplained that he was retaining carbon dioxide and since he did not want to have tube put down to help him breathe (he confirmed again he did not) that we were trying to lower his carbon dioxide with the mask and if he didn't keep it on he would likely . He said put it back on. He asked if could get something to relax him a bit. Will give ativan 0.5 mg IV. Called in to see pt who had stopped breathing could have been the co2 retention or the ativan he wanted. Pt apneic and pulseless, no cardiac activity on US. Time of 1254. discussed with daughter and informed of . Wants NH in [place]. Dr Hendrix has not seen since 2020. Dr starks has seen in [place] but no longer sees pt there as of 04/17/24. Dr Wong agrees to sign certificate Lab Data 05/30/24 05:58 05/30/24 05:58 Labs: Lab Results 05/30/24 05/30/24 05/30/24 Range/Units 05:58 10:37 11:33 WBC 8.2 (4.5-10.0) K/mm3 RBC 4.02 L (4.6-6.20) M/mm3 Hgb 10.0 L (14.0-18.0) g/dL Hct 35.3 L (42.0-52.0) % MCV 87.8 (80-100) fl MCH 24.9 L (26-34) pg MCHC 28.3 L (32-36) g/dl RDW 16.7 H (11.5-14.5) % Plt Count 421 H (150-375) k/mm3 MPV 10.4 (7.4-10.4) fl Immature Gran % (Auto) 0.2 (0-0.5) % Neut % (Auto) 81.8 H (45.5-73.1) % Lymph % (Auto) 8.7 L (18.3-44.2) % [place] % (Auto) 7.4 (2.6-8.5) % Eos % (Auto) 1.3 (0-4.4) % Baso % (Auto) 0.6 (0.2-1.2) % Lymph # (Auto) 0.71 L (0.9-3.2) K/mm3 [place] # (Auto) 0.6 (0.1-0.6) K/mm3 Eos # (Auto) 0.1 (0-0.3) K/mm3 Baso # (Auto) 0.1 (0.0-0.1) K/mm3 Abs Immat Gran (auto) 0.02 (0.00-0.031) K/mm3 Absolute Neuts (auto) 6.7 (1.3-6.7) K/mm3 Absolute Nucleated RBC 0.000 (0.0-0.012) K/mm3 Nucleated RBC % 0.0 (0.0-0.2) % Platelet Estimate Increased (Adequate) Hypochromasia 1+ Anisocytosis 1+ Schistocytes None seen Expiratory Pressure 8 CMH2O Inspiratory Pressure 12 CMH2O Sodium 140 (137-145) mmol/L Potassium 4.5 (3.4-5.0) mmol/L Chloride 91 L (98-107) mmol/L Carbon Dioxide > 40 H (22-30) mmol/L Anion Gap (4-12) mmol/L BUN 33 H (9-20) mg/dL Creatinine 0.63 L (0.7-1.3) mg/dL Estim Creat Clear Calc 76 ml/min Estimated GFR > 60 (59 - ) Glucose 123 H (65-110) mg/dL Calcium 9.0 (8.4-10.2) mg/dL Total Bilirubin 0.8 (0.2-1.3) mg/dL AST 31 (17-59) U/L ALT 16 (6-50) U/L Alkaline Phosphatase 168 H (38-126) U/L Troponin I 0.064 H* 0.065 H* (0.000-0.034) ng/mL NT-Pro-B Natriuret Pep 58412 H (19.9-100) pg/mL Total Protein 9.0 H (6.3-8.2) g/dL Albumin 3.7 (3.5-5.1) g/dL Influenza A (RT-PCR) Negative (Negative) Influenza B (RT-PCR) Negative (Negative) RSV (RT-PCR) Negative (Negative) SARS-CoV-2 RNA (RT-PCR) Negative (Negative) ABG Data ABG results: 05/30/24 05/30/24 07:29 11:33 Puncture Site Left radial Left radial ABG pH 7.332 L 7.241 L* ABG pCO2 69.8 H* 86.8 H* ABG pO2 142.0 H 71.5 L ABG PO2/FiO2 Ratio 5.07 2.55 ABG HCO3 36.1 H 36.4 H ABG O2 Saturation 98.6 90.5 L ABG O2 Content 14.6 L 13.9 L ABG Base Excess 8.4 6.8 A-a Gradient < 0.0 25.7 Oxyhemoglobin 98.2 91.7 Total Hemoglobin 10.4 L 10.7 L O2 Delivery Device Nasal cannula Non-invasive vent O2 Liters/Min 2.0 Not Reportable Vent Rate 18 FiO2 28 28 Critical Care Time Critical Care Time Critical Care Time: Yes (30) Total Critical Care Time: 30 Discharge Plan Discharge Clinical Impression: CHF (congestive heart failure), Acute non-ST elevation myocardial infarction (NSTEMI), Respiratory failure Patient Disposition: Condition: Critical Patient Language: Swedish Prescriptions: No Action Jardiance 10 mg Tablet 10 mg PO DAILY Qty: 30 0RF cholecalciferol (vitamin D3) [Vitamin D3] 25 mcg (1,000 unit) Tablet 1,000 unit PO DAILY Qty: 30 0RF carvedilol [Coreg] 3.125 mg Tablet 3.125 mg PO Q12H 30 Days Qty: 60 0RF magnesium oxide 400 mg (241.3 mg magnesium) tablet 500 mg PO DAILY Qty: 30 0RF ipratropium-albuterol 0.5 mg-3 mg(2.5 mg base)/3 mL solution for nebulization 3 ml INHALATION QID PRN (Reason: shortness of breath or wheezing) Glucagon Emergency Kit (human) 1 mg recon soln 1 mg IM .COMPLEX PRN (Reason: hypoglycemia) Rx Instructions: 1 mg intramuscularly up to 3 times 15 minutes apart PRN; sertraline 50 mg tablet 50 mg PO DAILY insulin lispro [Humalog KwikPen Insulin] 100 unit/mL insulin pen 1 sliding scale dose SUBCUT AC insulin glargine [Lantus Solostar U-100 Insulin] 100 unit/mL (3 mL) insulin pen 15 unit SUBCUT HS clopidogrel 75 mg tablet 75 mg PO DAILY atorvastatin 40 mg Tablet 40 mg PO DAILY Qty: 30 0RF Santyl 250 unit/gram Ointment 1 applic topical QAM Qty: 30 0RF Rx Instructions: Apply to right posterior heel daily, cover, and wrap. furosemide 40 mg tablet 40 mg PO BID sacubitril-valsartan [Entresto] 24-26 mg tablet 1 tablet PO DAILY aspirin 81 mg Capsule 81 mg PO DAILY miconazole nitrate 2 % cream 1 applic topical BID Qty: 28 0RF duloxetine 20 mg Capsule,Delayed Release(Dr/Ec) 20 mg PO DAILY
[2024-05-30 07:32] LABS: Alveolar/Arterial O2 Gradient < 0.0 mmHg; Base Excess ABG 8.4 mEq/l (+/-2.0); Fractional Inspired Oxygen 28 %; HCO3 ABG 36.1 mEq/l (22.0-26.0); Oxygen Content ABG 14.6 %vol (16.0-22.0); Oxygen Saturation ABG 98.6 % (95.0-100.0); Oxyhemoglobin 98.2 % THb (90.0-100.0); PO2 FiO2 Ratio Arterial Blood 5.07 %; Total Hemoglobin 10.4 g/dL (12.0-18.0); pH ABG 7.332 (7.350-7.450)
[2024-05-30 07:34] LABS: Device NASAL CANNULA; Modified Allen's Test Pass; PCO2 ABG 69.8 mmHg (35.0-45.0); Site Drawn LEFT RADIAL
[2024-05-30 07:49] LABS: Troponin I 0.064 ng/mL (0.000-0.034)
--- OUTSIDE RECORDS SUMMARY | 2024-05-30 07:50 | XMS_ITS | Encounter Summary ---
Author Organization [facility] Address [address] [place] [address] Care Team Providers Care P 3 Armament/Ordnance Ima Technician Name Role Phone Helen Pereira MD Primary Care Provider Reason for Visit * Reason Onset Date Comments Concerns 09/20/2023 Encounter Details Date Type Department Care Team (Late st Contact Info) Description 09/20/2023 Telephone [facility] - Centralized Scheduling [address] [place] [address] Franco Flynn MD [address] [place] [address] Concerns Social History Tobacco Use Types Packs/Day [...] and heating? Not hard at all 08/15/2023 [facility] [place] of Occupat ional Health - Occupational Stress [...] place to sleep or slept in a fpc (including now)? No 08/15/2023 Sex and Gender [...] on filedocumented in this encounter Care Teams P 3 Armament/Ordnance Ima Technician Relationship Specialty Start Date End Date Helen Pereira MD [address] [place] [address] PCP - General Family Medicine 12/27/20 documented as of this encounter
--- OUTSIDE RECORDS SUMMARY | 2024-05-30 07:50 | XMS_ITS | Encounter Summary ---
Author Organization [facility] Address [address] [place] [address] Care Team Providers Care Tunneling Machine Operator Name Role Phone Helen Pereira MD Primary Care Provider Encounter Details Date Type Department Care Team (Late st Contact Info) Description 12/27/2020 Ophth Exam [facility] [address] [place] [id number] Justus Lawrence , DO [address] [place] [address] Social History Tobacco Use Types Packs/Day Years Used Date Smoking Tobacco: Never Assessed Sex and Gender Information Value Date Recorded Sex Assigned at Not on file Gender Identity Not on file Sexual Orientation Not on file documented as of this encounter Plan of Treatment Not on file documented as of this encounter Visit Diagnoses Not on filedocumented in this encounter Care Teams Tunneling Machine Operator Relationship Specialty Start Date End Date Helen Pereira MD [address] [place] [address] PCP - General Family Medicine 12/27/20 documented as of this encounter
--- OUTSIDE RECORDS SUMMARY | 2024-05-30 07:51 | XMS_ITS | Referral Summary ---
Author Organization [facility] Address [address] [place] [address] Care Team Providers Care Lieutenant Shift Supervisor Name Role Phone Helen Pereira MD Primary Care Provider Source Comments [facility],non-owned Affiliates and Associated Physician Practices is amultiple site organization consisting of ambulatory clinics and hospital sitesin [place], [place], [place] and [place]. This disclosure is being madepursuant to the Care Everywhere program and may not contain all information available regarding this patient. Last updated 18.[facility] Encounters Date Type Department Care Team Description [...] pacemaker 08/15/2023 Cardiac resynchronization th erapy defibrillator (SUPERVISOR HANGING AND TRIMMING-D) in place 08/07/2019 08/17/2023 Overview (08/17/2023): Medtronic Amplia MRI Quad SUPERVISOR HANGING AND TRIMMING-D implanted on 08/07/19 for NICM/CHF/CHB/Syncope. Alvin - PT TRANSFERRED TO SMILEY ORNELAS MD Immunizations Name Administration Dates Next Due [email or web address] primary monoval ent 12+ yr 0.3mL Purple [...] and heating? Not hard at all 08/15/2023 [facility] [place] of Occupat ional Health - Occupational Stress [...] place to sleep or slept in a retirement (including now)? No 08/15/2023 Sex and Gender Information Value Date Recorded Sex Assigned at Not on file Gender Identity Not on file Sexual Orientation Not on file Last Filed Vital Signs Vital Sign Reading Time Taken Comments Blood Pressure 96/59 02/08/2024 10:45 AM CDT Pulse 57 02/08/2024 10:45 AM CDT Temperature 36.4 C (97.5 F) 02/08/2024 10:45 AM CDT Respiratory Rate 20 09/29/2023 8:50 AM CDT [...] 4:14 PM 08/25/2023 6:45 PM Care Teams Lieutenant Shift Supervisor Relationship Specialty Start Date End Date Helen Pereira MD [address] [place] [address] PCP - General Family Medicine 12/27/20
--- OUTSIDE RECORDS SUMMARY | 2024-05-30 07:51 | XMS_ITS | Clinical Summary ---
Author Organization [facility] [employer] Address [address] [place] [address] Care Team Providers Care Physical Biochemist Name Role Phone Helen Pereira MD Primary Care Provider Source Comments [facility] [employer],non-owned Affiliates and Associated Physician Practices is amultiple site organization consisting of ambulatory clinics and hospital sitesin [place], [place], [place] and [place]. This disclosure is being madepursuant to the Care Everywhere program and may not contain all information available regarding this patient. Last updated 18.[employer] Allergies Active Allergy Reactions Criticality Noted Date [...] pacemaker 08/15/2023 Cardiac resynchronization th erapy defibrillator (TIRE TRIMMER HAND-D) in place 08/07/2019 08/17/2023 Overview (08/17/2023): Medtronic Amplia MRI Quad TIRE TRIMMER HAND-D implanted on 08/07/19 for NICM/CHF/CHB/Syncope. Alvin - PT TRANSFERRED TO SMILEY ORNELAS MD Encounters Date Type Department Care Team Description 03/14/2024 Travel from Last 3 Months Immunizations Name Administration Dates Next Due [employer] primary monoval ent 12+ yr 0.3mL Purple [...] and heating? Not hard at all 08/15/2023 [facility] [place] of Occupat ional Health - Occupational Stress [...] place to sleep or slept in a usp (including now)? No 08/15/2023 Sex and Gender [...] - COLON CA SCREENING 1950 MEDICARE AWV 12 MONTHS 1950 HEPATITIS C SCREENING 12/12/1970 DTAP/TDAP/TD VACCINES (1 - Tdap) 12/17/1971 ZOSTER VACCINE (1 of 2) 2002 Respiratory Syncytial Virus (RSV) Vaccine Pt: or over 60 yrs (1 - Risk 60-74 years 1-dose series) 2012 COVID-19 VACCINE ( - season) 2023 07/03/2020, 06/08/2020 INFLUENZA VACCINE (#1) [...] 4:14 PM 08/25/2023 6:45 PM Care Teams Physical Biochemist Relationship Specialty Start Date End Date Helen Pereira MD [address] [place] [address] PCP - General Family Medicine 12/27/20
--- OUTSIDE RECORDS SUMMARY | 2024-05-30 07:51 | XMS_ITS | Patient Health Summary ---
Author Organization [facility] Address [address] [place] [address] Care Team Providers Care Apprentice Instrument Technician Name Role Phone Helen Pereira MD Primary Care Provider Note from [facility],non-owned Affiliates and Associated Physician Practices is amultiple site organization consisting of ambulatory clinics and hospital sitesin [place], [place], [place] and [place]. This disclosure is being madepursuant to the Care Everywhere program and may not contain all information available regarding this patient. Last updated 18.[facility] Allergies * Penicillins(Swelling) -Medium Criticality Medications * [...] pacemaker 08/15/2023 Cardiac resynchronization th erapy defibrillator (INDUSTRIAL HYGIENE MANAGER-D) in place 08/07/2019 08/17/2023 Immunizations * Covid [employer] primary monovalent 12+ yr 0.3mL Purple cap(Given [...] and heating? Not hard at all 08/15/2023 [facility] [place] of Occupat ional Health - Occupational Stress [...] place to sleep or slept in a senior care (including now)? No 08/15/2023 Sex and Gender [...] 02/08/2024) Performed for PAD (peripheral artery disease) ([facility]) * PROC WOUND DEBRIDEMENT </> 20CM(Performed 02/01/2024) Performed for Osteomyelitis of right foot, unspecified type ([facility]), Non-healing ulcer of right ankle, limited to breakdown of skin ([facility]) * CULTURE WOUND+GRAM STAIN(Performed 02/01/2024) Performed for Osteomyelitis of right foot, unspecified type ([facility]) * APHERESIS/TRANSFUSION ORDER(Performed 08/26/2023) * GLUCOSE - [...] - POINT OF CARE(Performed 08/20/2023) * CYTOLOGY NON-RN MANAGED CARE PANEL (STL)(Performed 08/20/2023) Performed for Pleural effusion [...] 08/19/2023) Performed for Left foot infection * OR AMPUTATE THIGH,THRU FEMUR(Performed 08/19/2023) Performed for Left [...] 08/15/2023) * CULTURE WOUND+GRAM STAIN(Performed 08/15/2023) * OR AMPUTATE LOWER LEG AT KNEE(Performed 08/15/2023) Performed [...] 02/01/2024 11:47 AM CDT Danika Hays MD 02/01/2024 11:50 AM [facility] PROCEDURE NOTE Procedure: right foot heel excisional debridement removing skin and soft tissue Permit: verbal consent Indication: heel wound with purulence and fibrinous exudate Anaesthesia: none needed Physicians: danika hays md; justus cerda md Description: sharp excisional debridement of right heel with scissors with curettage to healthy-appearing tissue with pinpoint bleeding. Skin and subcutaneous tissue was removed using forceps and scissors. painted with betadine and dry dressing applied. wound dimensions 3x2x0.1cm. Complications: none apparent EBL: 1cc Disposition: back to facility Justus Cerda MD 02/01/2024 11:15 AM I was present for the procedure. Danika Hays MD PROCEDURE/MINOR COURTNEY GICAL ORDERABLES * (ABNORMAL) CULTURE WOUND+GRAM STAIN (02/01/2024 11:10 AM CDT) Only the most recent of3 resultswithin the time period is included. Culture Heavy Pseudomonas aeruginosa(A) KARY 02/05/2024 5:44 AM CDT [facility] Culture Heavy Enterococcus faecalis(A) KARY 02/05/2024 5:44 AM CDT [facility] Culture Heavy normal skin chaparrita KARY 02/05/2024 5:44 AM CDT [facility] Gram Stain Moderate Polymorphonuclear cells 02/05/2024 5:44 AM CDT [facility] Gram Stain Heavy Gram-negative bacilli 02/05/2024 5:44 AM CDT [facility] MICROBIOLOG[facility] Gram Stain Heavy Gram-positive cocci 02/05/2024 5:44 AM CDT [facility] MICROBIOLOGY Microbiology ENTIRE FOOT / [...] Danika Hays MD LAB - MICROBIOLOGY ORDERABLES [facility] MICROBIOLOGY [address] [place] [address], [facility] [phone] * APHERESIS/TRANSFUSION ORDER (08/26/2023 2:09 PM CDT) Narrative 08/26/2023 2:09 PM CDT Ordered by an unspecified provider. Scanned Document NURSING - VITAL SIGN S AND ASSESSMENT * (ABNORMAL) GLUCOSE - POINT OF CARE (08/25/2023 11:22 AM CDT) Only the most recent of44 resultswithin the time period is included. Glucose WB/POC 205(H) 70 - 115 mg/dL 08/25/2023 11:26 AM CDT [facility] Specimen Type Cap Fingerstick 2023 11:26 AM CDT [facility] Blood BLOOD SPECIMEN / Unknown 08/25/2023 11:22 AM CDT 08/25/2023 11:25 AM CDT Ramu Flynn MD LAB - POINT OF CARE ORDERABLES [facility] [address] [place] [address], [facility] [phone] * PT-INR [facility] (08/25/2023 3:54 AM CDT) Only the most recent of7 resultswithin the time period is included. Pathologist [facility] PT 14.1 12.1 - 14.8 Seconds 08/25/2023 5:28 AM CDT [facility] INR 1.1 See Comment 08/25/2023 5:28 AM T [facility] Comment:The suggested therap eutic range for standard coumadin (warfarin) therapy is an INR of 2.0-3.0. For high-risk patients (Mechanical Mitral Valve Prosthesis, etc.), the suggested prophylactic therapeutic range is an INR of 2.5-3.5. Blood BLOOD SPECIMEN / Unknown Lab Venipuncture / Unknown 08/25/2023 3:54 AM CDT 08/25/2023 4:56 AM CDT Jyoti Fung DO LAB - COAGULATION OR DERABLES [facility] [address] [place] [address], [facility] [phone] * (ABNORMAL) CBC W AUTO DIFFERENTIAL (08/25/2023 3:54 AM CDT) Only the most recent of9 resultswithin the time period is included. Pathologist [facility] WBC 11.5(H) 4.0 - 10.7 x10E9/L 08/25/2023 5:06 AM [facility] RBC Count 2.60(L) 4.30 - 5.80 x10E12/L 08/25/2023 5:06 AM [facility] Hemoglobin 7.4(L) 13.3 - 17.5 g/dL 08/25/2023 5:06 AM [facility] Hematocrit 23.6(L) 38.7 - 51.1 % 08/25/2023 5:06 AM [facility] MCV 90.8 80.0 - 98.0 fL 08/25/2023 5:06 AM [facility] MCH 28.5 26.7 - 33.6 pg 08/25/2023 5:06 AM [facility] MCHC 31.4(L) 31.7 - 36.3 g/dL 08/25/2023 5:06 AM [facility] RDW-CV 15.9(H) 11.3 - 14.8 % 08/25/2023 5:06 AM [facility] Platelet Count 509(H) 150 - 420 x10E9/L 08/25/2023 5:06 AM [facility] MPV 9.7 7.8 - 11.4 fL 08/25/2023 5:06 AM [facility] Neutrophil % 83.6(H) 41.0 - 74.0 % 08/25/2023 5:06 AM [facility] Lymphocyte % 8.2(L) 17.0 - 47.0 % 08/25/2023 5:06 AM [facility] Monocyte % 6.3 3.0 - 11.0 % 08/25/2023 5:06 AM [facility] Eosinophil % 1.1 0.0 - 7.0 % 08/25/2023 5:06 AM [facility] Basophil % 0.4 0.0 - 1.6 % 08/25/2023 5:06 AM [facility] Immature Granulocytes % 0.4 0.0 - 1.0 % 08/25/2023 5:06 AM [facility] Neutrophil Absolute 9.62(H) 1.60 - 7.50 x10E9/L 08/25/2023 5:06 AM [facility] Lymphocyte Absolute 0.95(L) 1.00 - 4.40 x10E9/L 08/25/2023 5:06 AM [facility] Monocyte Absolute 0.73 0.15 - 1.00 x10E9/L 08/25/2023 5:06 AM [facility] Eosinophil Absolute 0.13 0.00 - 0.60 x10E9/L 08/25/2023 5:06 AM [facility] Basophil Absolute 0.05 0.00 - 0.13 x10E9/L 08/25/2023 5:06 AM [facility] Blood BLOOD SPECIMEN / Unknown Lab Venipuncture / Unknown 08/25/2023 3:54 AM CDT 08/25/2023 4:56 AM CDT Jyoti Fung DO LAB - HEMATOLOGY ORD ERABLES [facility] [address] [place] [address], [facility] [phone] * (ABNORMAL) COMPREHENSIVE METABOLIC PANEL (08/25/2023 3:54 AM CDT) Only the most recent of8 resultswithin the time period is included. BUN 8 7 - 26 mg/dL 08/25/2023 5:33 AM [facility] Creatinine 0.49(L) 0.71 - 1.16 mg/dL 08/25/2023 5:33 AM [facility] Sodium 136 136 - 145 mmol/L 08/25/2023 5:33 AM [facility] Potassium 3.9 3.5 - 4.5 mmol/L 08/25/2023 5:33 AM [facility] Chloride 101 98 - 107 mmol/L 08/25/2023 5:33 AM [facility] CO2 29 22 - 29 mmol/L 08/25/2023 5:33 AM [facility] Glucose 54(L) 70 - 115 mg/dL 08/25/2023 5:33 AM [facility] Calcium 8.5 8.4 - 10.2 mg/dL 08/25/2023 5:33 AM [facility] Protein Total 5.6(L) 6.0 - 8.3 g/dL 08/25/2023 5:33 AM [facility] Albumin 2.0(L) 3.4 - 5.0 g/dL 08/25/2023 5:33 AM [facility] Bilirubin Total 0.3 0.2 - 1.2 mg/dL 08/25/2023 5:33 AM [facility] Alkaline Phosphatase 188(H) 40 - 150 U/L 08/25/2023 5:33 AM [facility] ALT 10 5 - 55 U/L 08/25/2023 5:33 AM [facility] AST 23 5 - 34 U/L 08/25/2023 5:33 AM [facility] Anion Gap 6 6 - 16 08/25/2023 5:33 AM [facility] BUN/Creatinine Ratio 16 7 - 23 08/25/2023 5:33 AM [facility] Osmolality Calculated 278 275 - 295 mOsm/kg 08/25/2023 5:33 AM [facility] Albumin/Globulin Ratio 0.6(L) 1.1 - 2.3 08/25/2023 5:33 AM [facility] eGFR by CKD-EPI >90 >=90 mL/min/1.7 3 m2 08/25/2023 5:33 AM [facility] Blood BLOOD SPECIMEN / Unknown Lab Venipuncture / Unknown 08/25/2023 3:54 AM CDT 08/25/2023 4:56 AM T Jyoti Fung DO LAB - CHEMISTRY SHAKILA RAO [address] [address], [facility] [phone] * (ABNORMAL) PHOSPHORUS BLOOD (08/25/2023 3:54 AM CDT) Only the most recent of8 resultswithin the time period is included. Phosphorus 2.4(L) 2.8 - 5.1 mg/dL 08/25/2023 5:33 AM CDT [facility] Blood BLOOD SPECIMEN / Unknown Lab Venipuncture / Unknown 08/25/2023 3:54 AM CDT 08/25/2023 4:56 AM CDT Jyoti Fung LAB - CHEMISTRY HOPKINSSilvio RAO Performing Organization Address [facility]/ZIP Co de Phone Number [address] [address], [facility] [phone] * MAGNESIUM BLOOD (08/25/2023 3:54 AM CDT) Only the most recent of9 resultswithin the time period is included. Magnesium 2.2 1.6 - 2.6 mg/dL 08/25/2023 5:33 AM CDT [facility] Blood BLOOD SPECIMEN / Unknown Lab Venipuncture / Unknown 08/25/2023 3:54 AM CDT 08/25/2023 4:56 AM CDT Jyoti [facility] LAB - CHEMISTRY HOPKINSSilvio RAO Performing Organization Address [facility] Co de Phone Number [address] [address], [facility] [phone] * XR CHEST 1VW PORTABLE (08/24/2023 4:55 AM CDT) Only the most recent of3 resultswithin the time period is included. Anatomical Region Laterality Modality Chest Radiographic Saray ging 08/24/2023 7:56 AM CDT Narrative 08/25/2023 12:25 AM CDT PROCEDURE: XR CHEST 1VW PORTABLE, DATE/TIME OF EXAM: 08/24/2023 4:55 AM, LOCATION [facility] INDICATION: Z98.890: S/P thoracentesis ADDITIONAL CLINICAL INFORMATION: [...] DATE/TIME OF EXAM: 08/24/2023 4:55 AM, LOCATION [facility] INDICATION: Z98.890: S/P thoracentesis ADDITIONAL CLINICAL INFORMATION: [...] time period is included. Unit Description N/A [facility] LAB Blood Bank BLOOD SPECIMEN / Unknown 08/19/2023 2:00 AM CDT Franco Flynn MD LAB - BLOOD BANK ORD ERABLES [facility] [address] [place] [address], [facility] [phone] * CULTURE BLOOD (08/22/2023 11:53 AM CDT) Only the most recent of2 resultswithin the time period is included. [facility] Culture No growth day 5 KARY 08/27/2023 2:31 PM CDT [facility] MICROBIOLOGY Blood PERIPHERAL BLOOD / Unknown Venipuncture / Unknown 08/22/2023 11:53 AM CDT 08/22/2023 11:57 AM CDT Gregg Stock MD LAB - MICROBIOLOGY O RDERABLES [facility] MICROBIOLOGY [address] [place] [address], [facility] [phone] * ECHO COMPLETE W CONTRAST (08/22/2023 9:59 AM CDT) [facility] BSA [id number] m2 [facility] CV FUJI PACS LV biplane [...] LA vol BP 82.711 mL [facility] CV [facility] I PACS TR pk carlton 246.2 cm/s [facility] CV FUJ I PACS LVOT pk carlton 1.16 m/s [facility] CV F UJI PACS LVOT mn carlton 0.76 m/s [facility] CV F UJI PACS LVOT mn grad 2.8 mmHg [facility] CV FUJI PACS LVOT Cardiac Output 6.636 l/min [facility] Cardiac Index 3.68 l/min/m2 [facility] PACS LA vol index 45.9 16 - 34 mL/m2 [facility] PACS LA size 3.792 3.0 - 4.0 cm [facility] PACS LA vol BP A-L 93.486 mL [facility] PACS RVIDd 3.4 cm [facility] I PACS RVOT VTI 11.777 cm [facility] I PACS TV S' carlton 16.582 cm/s [facility] I PACS TAPSE 1.643 1.7 cm [facility] I PACS RVOT pk carlton 0.47 m/s [facility] CV F UJI PACS RA area 14.636 cm2 [facility] CV [facility] I PACS AV mn grad 4 mmHg [facility] CV FU JI PACS AV pk grad 6 mmHg [facility] CV FU JI PACS AV mn carlton 0.96 m/s [facility] CV [facility] I PACS AV pk carlton 1.26 m/s [facility] CV [facility] I PACS AV VTI 29.196 cm [facility] I PACS LVOT pk grad 5.42 mmHg [facility] P[facility] LVOT VTI 24.854 cm [facility] CV [facility] I PACS AV area cont VTI 2.8 cm2 [facility] AV area pk carlton 3.0 cm2 [facility] C V [facility] PACS AV Doppler carlton index pk carlton 0.923 [facility] Dimensionless Index 0.851 [facility] MR VTI 178.344 cm [facility] PACS MV pk carlton regurg 410.901 [...] Index 52 ml/m2 [facility] CV FUJI PACS [id number] 8.793 cm [facility] CV FUJ I PACS [id number] 8.758 cm [facility] CV FUJ I PACS [...] Modality Ultrasound Narrative 08/22/2023 6:11 PM CDT Left Ventricle: Left ventricle is moderately dilated. Normal wall thickness. Severely reduced systolic function. EF by 2D Royal biplane is 27%. Severe global hypokinesis present. Right Ventricle: Right ventricle size is normal. Left Atrium: Left atrium is moderately dilated. Left atrium volume index is 45.9 mL/m2. Mitral Valve: Valve structure is normal. Mild regurgitation with a centrally directed jet. Tricuspid Valve: Valve structure is normal. Trace regurgitation. The pulmonary artery systolic pressure is normal (under 35 mmHg). Estimated RVSP is 27.0 mmHg. IVC/SVC: IVC diameter is less than or equal to 21 mm and decreases greater than 50% during inspiration; therefore the estimated right atrial pressure is normal (~3 mmHg). Pericardium: No pericardial effusion. Left Ventricle Left ventricle [...] Procedure Note Desmond Farrar MD - 08/22/2023 Left Ventricle: Left ventricle is moderately dilated. Normal wallthickness. Severely reduced systolic function. EF by 2D Royal biplane is27%. Severe global hypokinesis present. Right Ventricle: Right ventricle size is normal. Left Atrium: Left atrium is moderately dilated. Left atrium volumeindex is 45.9 mL/m2. Mitral Valve: Valve structure is normal. Mild regurgitation with acentrally directed jet. Tricuspid Valve: Valve structure is normal. Trace regurgitation. Thepulmonary artery systolic pressure is normal (under 35 mmHg). EstimatedRVSP is 27.0 mmHg. IVC/SVC: IVC diameter is less than or equal to 21 mm and decreasesgreater than 50% during inspiration; therefore the estimated right atrialpressure is normal (~3 mmHg). Pericardium: No pericardial effusion. Jyoti Fung DO ECHO CUPID * LACTIC ACID BLOOD (08/21/2023 2:47 PM CDT) Only the most recent of3 resultswithin the time period is included. Lactic Acid-Stat 0.7 <=2.0 mmol/L 08/21/2023 3:12 PM CDT [facility] Blood BLOOD SPECIMEN / Unknown Venipuncture / Unknown 08/21/2023 2:47 PM CDT 08/21/2023 2:52 PM CDT Jyoti Fung LAB - CHEMISTRY ORDSilvio RAO Performing Organization Address City/[facility]/ZIP Co de Phone Number [address] [address], [facility] [phone] * LDH BLOOD (08/21/2023 11:17 AM CDT) [facility] LDH Total 153 125 - 243 Units/L 08/21/2023 11:53 AM T [facility] Blood BLOOD SPECIMEN / Unknown Venipuncture / Unknown 08/21/2023 11:17 AM CDT 08/21/2023 11:28 AM CDT Jyoti Fung LAB - CHEMISTRY SHAKILA RAO Performing Organization Address [facility] Co de Phone Number [address] [address], [facility] [phone] * (ABNORMAL) CBC W/O DIFFERENTIAL (08/21/2023 2:48 AM CDT) Only the most recent of8 resultswithin the time period is included. [facility] WBC 16.6(H) 4.0 - 10.7 x10E9/L 08/21/2023 3:07 AM [facility] RBC Count 2.56(L) 4.30 - 5.80 x10E12/L 08/21/2023 3:07 AM [facility] Hemoglobin 7.3(L) 13.3 - 17.5 g/dL 08/21/2023 3:07 AM [facility] Hematocrit 21.9(L) 38.7 - 51.1 % 08/21/2023 3:07 AM [facility] MCV 85.5 80.0 - 98.0 fL 08/21/2023 3:07 AM [facility] MCH 28.5 26.7 - 33.6 pg 08/21/2023 3:07 AM [facility] MCHC 33.3 31.7 - 36.3 g/dL 08/21/2023 3:07 AM CDT [facility] RDW-CV 14.6 11.3 - 14.8 % 08/21/2023 3:07 AM T [facility] Platelet Count 340 150 - 420 x10E9/L 08/21/2023 3:07 AM T [facility] MPV 9.6 7.8 - 11.4 fL 08/21/2023 3:07 AM T [facility] Blood BLOOD SPECIMEN / Unknown Venipuncture / Unknown 08/21/2023 2:48 AM CDT 08/21/2023 2:57 AM CDT Nayelyjones [facility] LAB - HEMATOLOGY ORD ERABLES [address] [address], [place] [phone] * PROTEIN BODY FLUID (08/20/2023 11:48 AM CDT) Protein Fluid 1.5 Not Established For Fluids g/dL 08/20/2023 12:27 PM T [facility] Comment:The analytical perfo rmance of this test has been independently validated by [facility]. A reference range has not been established. Comparison of this result with the concentration in blood, serum or plasma is recommended. Fluid PLEURAL FLUID / Unknown Collection / Unknown 08/20/2023 11:48 AM CDT 08/20/2023 11:57 AM CDT Nayelyjones Fung LAB - BODY FLUID ORD ERABLES [address] [address], [place] [phone] * PH BODY FLUID ([facility] ONLY) (08/20/2023 11:48 AM CDT) pH Fluid 7.35 Not Established for Fluids pH 08/20/2023 12:04 PM CDT [facility] Body Fluid Type Pleural Fluid 08/20/2023 12:04 PM T [facility] Fluid PLEURAL FLUID / Unknown Collection / Unknown 08/20/2023 11:48 AM CDT 08/20/2023 11:57 AM CDT Jyoti Fung DO LAB - BODY FLUID ORD ERABLES Performing Organization Address City/[facility]/ZIP Co de Phone Number [facility] [address] [place] [address], [place] [phone] * LDH BODY FLUID (08/20/2023 11:48 AM CDT) LD Fluid 53 Not Established For Fluids Units/L 08/20/2023 12:27 PM CDT [facility] Comment:The analytical perfo rmance of this test has been independently validated by [facility]. A reference range has not been established. Comparison of this result with the concentration in blood, serum or plasma is recommended. Fluid PLEURAL FLUID / Unknown Collection / Unknown 08/20/2023 11:48 AM CDT 08/20/2023 11:57 AM CDT Jyoti Fung LAB - BODY FLUID ORD ERABLES Performing Organization Address [facility] Co de Phone Number [facility] [address] [place] [address], [place] [phone] * GLUCOSE BODY FLUID (08/20/2023 11:48 AM CDT) Glucose Fluid 121 Not Established For Fluids mg/dL 08/20/2023 12:27 PM CDT [facility] Comment:The analytical perfo rmance of this test has been independently validated by [facility]. A reference range has not been established. Comparison of this result with the concentration in blood, serum or plasma is recommended. Fluid PLEURAL FLUID / Unknown Collection / Unknown 08/20/2023 11:48 AM CDT 08/20/2023 11:57 AM CDT Jyoti Fung DO LAB - BODY FLUID ORD ERABLES Performing Organization Address City/[facility]/ZIP Co de Phone Number [facility] [address] [place] [phone] [phone] * CYTOLOGY NON-RN MANAGED CARE PANEL (STL) (08/20/2023 11:48 AM CDT) Case Report Medical Cytology Report Case: [id number] Authorizing Provider: Jyoti Fung DO Collected: 08/20/2023 11:48 AM Ordering Location: [facility] ICU Received: 08/22/2023 07:31 AM Pathologist: Shiva Pollack MD Specimen: Pleural Fluid 08/23/2023 2:08 PM CDT [facility] Specimen Adequacy Adequate cellularity for evaluation. 08/23/2023 2:08 PM CDT [facility] Final Diagnosis Pleural fluid, cytology: - Negative for malignant cells - Specimen consists of abundant chronic inflammatory cells, rare macrophages and rare mesothelial cells 08/23/2023 2:08 PM CDT [facility] Clinical History The patient is [...] imaging showed pleural effusion. 08/23/2023 2:08 PM CDT [facility] Gross Description 1 pap stained cytospin slide and 1 cell block from 50cc yellow fluid 08/23/2023 2:08 PM CDT [facility] Pathologist Location at [facility] 08/23/2023 2:08 PM CDT [facility] Disclaimer The performance characteristics of all immunohistochemical and indirect immunofluorescence stains (if any) cited in this report were determined by the Histopathology Laboratory of [facility]. Some of these tests rely on the use of analyte-specific reagents and are subject to specific labeling requirements by the [place] Food and Drug Administration. Such tests were developed by the Histology Laboratory of [facility] and have not been cleared or approved [...] the attending (teaching) pathologist. 08/23/2023 2:08 PM CDT [facility] Embedded Images 08/23/2023 2:08 PM CDT [facility] Pathology/Cytolo gy PLEURAL FLUID / Unknown Collection / Unknown 08/20/2023 11:48 AM CDT 08/22/2023 7:31 AM CDT Jyoti Fung DO LAB - PATHOLOGY/CYTO LOGY ORDERABLES Performing Organization Address [facility]/ZIP Co de Phone Number [facility] [address] [facility]. [address] [phone] * DIFFERENTIAL MANUAL FLUID (08/20/2023 11:48 AM CDT) Fluid Source Pleural 08/20/2023 12:25 PM CDT [facility] Body Fluid Total Cell Count 200 x10E6/L 08/20/2023 12:25 PM CDT [facility] Neutrophils Fluid Percent 3 % 08/20/2023 12:25 PM CDT [facility] Lymphocytes Fluid Percent 95 % 08/20/2023 12:25 PM T [facility] Comment:Occasional reactive lymphocyte noted. Macrophages Fluid Percent 2 % 08/20/2023 12:25 PM CDT [facility] Fluid PLEURAL FLUID / Unknown Collection / Unknown 08/20/2023 11:48 AM CDT 08/20/2023 11:57 AM CDT Narrative [facility] - 08/20/2023 12:25 PM CDT No reference ranges established for body fluid differential cell counts. The test results must be integrated into the clinical context for interpretation. Jyoti Fung DO LAB - BODY FLUID ORD ERABLES [facility] [address] [place] [address], [facility] [phone] * CULTURE FLUID+GRAM STAIN (08/20/2023 11:48 AM CDT) Culture No growth KARY 08/23/2023 3:21 PM CDT [facility]CRO[facility] Gram Stain Rare Polymorphonuclear cells 08/23/2023 3:21 PM CDT [facility]CRO[facility] Gram Stain No organisms seen 024 3:21 PM CDT [facility]CRO[facility] Other PLEURAL FLUID / Unknown Collection / Unknown 08/20/2023 11:48 AM CDT 08/20/2023 11:57 AM CDT Jyoti Fung DO LAB - MICROBIOLOGY O RDERAMYCHAL Performing Organization Address City/[facility]/ZIP Co de Phone Number [facility]CRO[facility] [address] [place] [address], [facility] [phone] * CULTURE AFB+SMEAR (08/20/2023 11:48 AM CDT) Culture No acid-fast bacillus isolated 10/03/2023 9:28 AM CDT [facility]CROBIOLOG[facility] AFB Smear No acid-fast bacilli seen 10/03/2023 9:28 AM CDT [facility] MICRO[facility]Y Microbiology PLEURAL FLUID / Unknown Collection / Unknown 08/20/2023 11:48 AM CDT 08/20/2023 11:57 AM CDT Jyoti Fung DO LAB - MICROBIOLOGY O RDERABLES Performing Organization Address [facility]/ZIP Co de Phone Number [facility]CRO[facility] [address] [place] [address], [facility] [phone] * CULTURE ANAEROBE (08/20/2023 11:48 AM CDT) Only the most recent of3 resultswithin the time period is included. Culture No anaerobic organisms isolated KARY 08/25/2023 12:22 PM CDT [facility] MICROBIOLOGY Microbiology PLEURAL FLUID / Unknown Collection / Unknown 08/20/2023 11:48 AM CDT 08/20/2023 11:58 AM CDT Jyoti Fung DO LAB - MICROBIOLOGY O RDERABLES [facility] [address] [place] [address], [facility] [phone] * CELL COUNT W DIFFERENTIAL FLUID (08/20/2023 11:48 AM CDT) Fluid Source Pleural 08/20/2023 12:25 PM CDT [facility] Fluid Appearance CLEAR 08/20/2023 12:25 PM CDT [facility] Fluid Color YELLOW 08/20/2023 12:25 PM CDT [facility] Total Nucleated Cells Fluid 86 Reference Range Not Established x10E6/L 08/20/2023 12:25 PM T [facility] RBC Count Fluid <2,000 Reference Range Not Established x10E6/L 08/20/2023 12:25 PM T [facility] Fluid PLEURAL FLUID / Unknown Collection / Unknown 08/20/2023 11:48 AM CDT 08/20/2023 11:57 AM CDT Narrative [facility] - 08/20/2023 12:25 PM CDT No reference ranges established for body fluid cell counts. Any reference ranges provided are derived from published literature. The test results must be integrated into the clinical context for interpretation. Jyoti Fung DO LAB - BODY FLUID ORD ERABLES [facility] [address] [place] [address], [facility] [phone] * (ABNORMAL) BLOOD GASES ART + COOX PANEL (08/19/2023 8:27 PM CDT) Only the most recent of2 resultswithin the time period is included. pH Arterial 7.40 7.35 - 7.45 pH 08/19/2023 8:52 PM CDT [facility] pO2 Arterial 81 80 - 100 mmHg 08/19/2023 8:52 PM [facility] pCO2 Arterial 45 35 - 45 mmHg 8:52 PM T [facility] HCO3 Arterial 27.9 20.0 - 30.0 mmol/L 08/19/2023 8:52 PM T [facility] BE Arterial 2.8(H) -2.0 - 2.0 mmol/L 08/19/2023 8:52 PM [facility] Oxyhemoglobin Arterial 96.3 % 08/19/2023 8:52 PM [facility] Dexoyhemoglobin (HHB) % <1.0 % 08/19/2023 8:52 PM [facility] Methemoglobin <0.8 0.0 - 2.0 % 08/19/2023 8:52 PM [facility] Carboxyhemoglobin 3.4(H) 0.0 - 2.0 % 2023 8:52 PM [facility] O2 Content Arterial 10.4 Interpret within clinical context ml/dL 08/19/2023 8:52 PM [facility] Hemoglobin by COOX 7.6(L) 12.0 - 17.6 g/dL 08/19/2023 8:52 PM [facility] O2 Saturation Arterial 100 90 - 100 % 08/19/2023 8:52 PM [facility] FI O2 Arterial 21.0 % 08/19/2023 8:52 PM [facility] Blood, arterial ARTERIAL BLOOD SPECIMEN / Unknown Arterial Puncture / Unknown 08/19/2023 8:27 PM CDT 08/19/2023 8:39 PM CDT Narrative [facility] - 08/19/2023 8:52 PM CDT Carboxyhemoglobin Normal Concentration: Non-smokers: 0-2%; Smokers: 0-9%; Toxic: >20% Jyoti Fung DO LAB - BLOOD GASES OR DERABLES Performing Organization Address [facility]/State/[facility] Co de Phone Number [facility] [address] [place] [address], [facility] [phone] * TRANSFUSE RED BLOOD CELL LEUKOREDUCED UNIT(S) (08/19/2023 3:02 PM CDT) Franco Flynn MD NURSING - BLOOD PROD TRANSFUSION * ARTERIAL LINE PERFORMABLE (08/19/2023 12:07 PM CDT) Narrative Juan Calderon DO - 08/19/2023 12:07 PM CDT Juan Calderon DO 08/19/2023 12:08 PM Arterial Line Placement Procedure Note Patient Location: OR. Procedure: Arterial Line ([id number]). Procedure Section Indications: continuous blood pressure monitoring. Consent: informed consent was obtained for the procedure. Alternatives Discussed: alternative treatment Skin Prep: Chloraprep. Orientation: Right. Site: radial. Sterile Technique: cap, mask, sterile gloves and small sterile fenestrated drape. Gauge: 20. Seldinger Technique Used? Yes Number of Attempts: 1. Procedure Tolerance: tolerated well. Events: none. Staff Section Anesthesia Provider: Joaquina Cooney MD, Performed the procedure Provider #1: Juan Calderon DO, Performed the procedure. Additional Comments: Patient hypotensive on levo 0.1 in PACU, assisted in placing A line. Joaquina Cooney MD [facility] * (ABNORMAL) BLOOD GAS+COOX+LYTES+METAB VENOUS POCT (08/19/2023 11:56 AM [facility]) pH Venous 7.26(L) 7.32 - 7.42 pH 08/19/2023 11:56 AM [facility] pO2 Venous 36 35 - 40 mmHg 08/19/2023 11:56 AM [facility] pCO2 Venous 58(H) 40 - 50 mmHg 08/19/2023 11:56 AM [facility] HCO3 Venous 26.0 20 - 30 mmol/L 08/19/2023 11:56 AM [facility] Base Excess Venous -1.2 -2.0 - 2.0 mmol/L 08/19/2023 11:56 AM [facility] Oxyhemoglobin Venous 57.7 % 06/2023 11:56 AM [facility] Deoxyhemoglobin (HHB) Venous % 39.9 % 08/19/2023 11:56 AM [facility] Methemoglobin <0.8 0.0 - 2.0 % 08/19/2023 11:56 AM [facility] Carboxyhemoglobin 2.1(H) 0.0 - 2.0 % 2023 11:56 AM [facility] Comment:Carboxyhemoglobin No rmal Concentration: Non-smokers: 0-2%; Smokers: 0- 9%; Toxic: >20% O2 Content Venous 5.8 Interpret within clinical context ml/dL 08/19/2023 11:56 AM [facility] Hemoglobin by COOX 7.1(L) 12.0 - 17.6 g/dL 08/19/2023 11:56 AM [facility] O2 Saturation Venous 59(L) >=70 % 06/2023 11:56 AM [facility] Sodium Whole Blood 134(L) 135 - 145 mmol/L 08/19/2023 11:56 AM [facility] Potassium Whole Blood 4.0 3.5 - 5.5 mmol/L 08/19/2023 11:56 AM [facility] Chloride WB 100 78 - 107 mmol/L 08/19/2023 11:56 AM [facility] Calcium Ionized 1.24 mmol/L 11:56 AM [facility] Ionized Calcium pH Adjusted 1.17(L) 1.19 - 1.34 mmol/L 08/19/2023 11:56 AM [facility] Anion Gap (AG) Arterial 8 6 - 16 mmol/L 08/19/2023 11:56 AM [facility] Glucose WB 188(H) 70 - 115 mg/dL 08/19/2023 11:56 AM [facility] Lactic Acid Whole Blood 2.9(H) <=2.0 mmol/L 08/19/2023 11:56 AM [facility] Blood BLOOD SPECIMEN / Unknown 08/19/2023 11:56 AM CDT 08/19/2023 12:02 PM [facility] Narrative [facility] - 08/19/2023 11:56 AM CDT Critical Value Acknowledged Licensed healthcare provider notified Jyoti Fung DO LAB - POINT OF CARE ORDERABLES [facility] [address] [place] [address], [facility] [phone] * BLOOD GAS ART+LYTES+METAB+COOX POC NOTIF (08/19/2023 11:52 AM CDT) Comment Notification Label Only - See Separate Report 08/19/2023 1:00 PM CDT [facility] Other MISCELLANEOUS SAMPLES / Unknown 08/19/2023 11:52 AM CDT 08/19/2023 11:53 AM CDT Jyoti Fung DO LAB - BLOOD GASES OR DERABLES [facility] [address] [place] [address], [facility] [phone] * IV PLACEMENT PERFORMABLE (08/19/2023 11:16 AM CDT) Narrative Yolanda Wylie DO - 08/19/2023 11:16 AM CDT Yolanda Wylie DO 08/19/2023 11:17 AM Peripheral IV Line Placement: Patient Location: OR Insertion Time: 08/19/2023 10:30 AM Procedure: IV start ([id number]). Procedure Section: Skin Prep: alcohol. Orientation: left Location: arm Catheter Gauge: 18 Number of Attempts: 1. Procedure Tolerance: performed while patient under general anesthesia. Staff Section Anesthesia Provider: Yolanda Wylie DO, Performed the procedure Provider #1: Joaquina Cooney MD. Joaquina Cooney MD [facility] * TRANSFUSE RED BLOOD CELL LEUKOREDUCED UNIT(S) (08/19/2023 10:47 AM CDT) Franco Flynn MD NURSING - BLOOD PROD TRANSFUSION * PATHOLOGY TISSUE (08/19/2023 9:48 AM CDT) Only the most recent of2 resultswithin the time period is included. Case Report Surgical Pathology Report Case: [id number] Authorizing Provider: Franco Flynn MD Collected: 08/19/2023 09:48 AM Ordering Location: [facility] 7 Received: 08/19/2023 01:46 PM Pathologist: Lashonda Aranda MD Specimen: Amputation Leg BK, Left below knee amputation 08/23/2023 8:34 AM CDT [facility] Final Diagnosis Lower extremity, left, below knee amputation (A): - Soft tissue margins appear viable and negative for acute inflammation - Marrow margins negative for acute inflammation - Calcified blood vessels 08/23/2023 8:34 AM [facility] Microscopic Description and Comment Microscopic examination substantiates the diagnosis. 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 Operative procedure: Left below knee amputation. 08/23/2023 8:34 AM [facility] Gross Description The requisition [...] No mass, lesion or ulcer is identified./[employer] Director sections are submitted as follows: A1-Tibia bone marrow margin A2-Fibula bone marrow margin A3-Skin and soft tissue margin A4-Scaly epidermis A5- Vasculature 08/23/2023 8:34 AM [facility] Pathologist Location at [facility] 08/23/2023 8:34 AM [facility] Disclaimer The performance characteristics of all immunohistochemical and indirect immunofluorescence stains (if any) cited in this report were determined by the Histopathology Laboratory of [facility]. Some of these tests were [...] - PATHOLOGY/CYTO LOGY ORDERABLES Performing Organization Address City/State/[facility] Co de Phone Number [facility] [address] [phone] * ETT LINE PERFORMABLE (08/19/2023 8:23 AM CDT) Narrative Sultana Taveras Anes Asst - 08/19/2023 8:23 AM CDT Sultana Taveras Anes Asst 08/19/2023 8:24 AM Endotracheal Tube Placement: Patient Location: OR. Intubation Event Date/Time: 08/19/2023 8:05 AM Procedure: intubation (30917). Procedure Section: Sedation: under general anesthesia. Indications for Airway Management: anesthesia Induction: standard IV Patient Position: supine Mask Ventilation: difficult and required 2 people [...] auscultation and CO2 monitor Tube secured with: adhesive tape. Dentition unchanged? Yes Difficult Airway? No. Procedure Start Time: 08/19/2023 8:05 AM. Staff Section Anesthesia Provider: Continuous Improvement Director, Student Anesthesiology Continuous Improvement Director Student Anesthesiology, Performed the procedure Provider #1: Sultana Taveras Anes Asst. Provider #2: Joaquina Cooney MD. Additional Comments: Atraumatic intubation by RICKY Briceño with lips, teeth, and tongue in pre-op condition. Eyes taped prior to airway manipulation. . Joaquina Cooney MD [facility] ORDERABLES * TYPE + SCREEN PANEL (08/19/2023 12:51 AM CDT) Only the most recent of2 resultswithin the time period is included. [facility] Antibody Screen NEG 2:40 AM CDT [facility] ABO Rh O POS 08/19/2023 2:40 AM T [facility] Blood Bank BLOOD SPECIMEN / Unknown Lab Venipuncture / Unknown 08/19/2023 12:51 AM CDT 08/19/2023 2:00 AM CDT Jyoti Fung DO LAB - BLOOD BANK ORD ERABLES [facility] [address] [place] [address], [facility] [phone] * (ABNORMAL) RENAL FUNCTION PANEL (08/19/2023 12:51 AM CDT) [facility] BUN 12 7 - 26 mg/dL 08/19/2023 2:25 AM [facility] Creatinine 0.50(L) 0.71 - 1.16 mg/dL 08/19/2023 2:25 AM [facility] Sodium 132(L) 136 - 145 mmol/L 08/19/2023 2:25 AM [facility] Potassium 3.7 3.5 - 4.5 mmol/L 08/19/2023 2:25 AM [facility] Chloride 101 98 - 107 mmol/L 08/19/2023 2:25 AM [facility] CO2 26 22 - 29 mmol/L 08/19/2023 2:25 AM [facility] Glucose 147(H) 70 - 115 mg/dL 08/19/2023 2:25 AM [facility] Albumin 1.6(L) 3.4 - 5.0 g/dL 08/19/2023 2:25 AM [facility] Calcium 8.2(L) 8.4 - 10.2 mg/dL 08/19/2023 2:25 AM [facility] Phosphorus 2.1(L) 2.8 - 5.1 mg/dL 08/19/2023 2:25 AM [facility] Anion Gap 5(L) 6 - 16 08/19/2023 2:25 AM [facility] BUN/Creatinine Ratio 24(H) 7 - 23 08/19/2023 2:25 AM [facility] Osmolality Calculated 276 275 - 295 mOsm/kg 08/19/2023 2:25 AM [facility] eGFR by CKD-EPI >90 >=90 mL/min/1.7 3 m2 08/19/2023 2:25 AM [facility] Blood BLOOD SPECIMEN / Unknown Lab Venipuncture / Unknown 08/19/2023 12:51 AM CDT 08/19/2023 1:59 AM CDT Jyoti Fung DO LAB - CHEMISTRY JEANNEE MAIRA [facility] [address] [place] [address], [facility] [phone] * (ABNORMAL) BASIC METABOLIC PANEL (CALCIUM TOTAL) (08/18/2023 2:36 AM CDT) Only the most recent of3 resultswithin the time period is included. BUN 14 7 - 26 mg/dL 08/18/2023 4:15 AM [facility] Creatinine 0.49(L) 0.71 - 1.16 mg/dL 08/18/2023 4:15 AM [facility] Sodium 132(L) 136 - 145 mmol/L 08/18/2023 4:15 AM [facility] Potassium 3.8 3.5 - 4.5 mmol/L 08/18/2023 4:15 AM [facility] Chloride 100 98 - 107 mmol/L 08/18/2023 4:15 AM [facility] CO2 24 22 - 29 mmol/L 08/18/2023 4:15 AM [facility] Glucose 79 70 - 115 mg/dL 08/18/2023 4:15 AM [facility] Calcium 7.8(L) 8.4 - 10.2 mg/dL 08/18/2023 4:15 AM [facility] Anion Gap 8 6 - 16 08/18/2023 4:15 AM [facility] BUN/Creatinine Ratio 29(H) 7 - 23 08/18/2023 4:15 AM [facility] Osmolality Calculated 273(L) 275 - 295 mOsm/kg 08/18/2023 4:15 AM [facility] eGFR by CKD-EPI >90 >=90 mL/min/1.7 3 m2 08/18/2023 4:15 AM [facility] Blood BLOOD SPECIMEN / Unknown Lab Venipuncture / Unknown 08/18/2023 2:36 AM CDT 08/18/2023 3:55 AM CDT Aishwarya Tarango DO LAB - CHEMISTRY ORDE MAIRA [address] [address], [facility] [phone] * FOLATE (08/18/2023 2:36 AM CDT) Folate 8.5 7.0 - 31.4 ng/mL 08/18/2023 4:41 AM T [facility] Blood BLOOD SPECIMEN / Unknown Lab Venipuncture / Unknown 08/18/2023 2:36 AM CDT 08/18/2023 3:55 AM CDT Aishwarya Tarango DO LAB - CHEMISTRY ORDE MAIRA [address] [address], [facility] [phone] * VITAMIN B12 (08/18/2023 2:36 AM CDT) Vitamin B12 518 213 - 816 pg/mL 08/18/2023 4:41 AM CDT [facility] Blood BLOOD SPECIMEN / Unknown Lab Venipuncture / Unknown 08/18/2023 2:36 AM CDT 08/18/2023 3:55 AM CDT Aishwarya Tarango DO LAB - CHEMISTRY ORDSilvio RAO Performing Organization Address City/[facility]/ZIP Co de Phone Number [address] [address], [facility] [phone] * (ABNORMAL) IRON + TRANSFERRIN PANEL (08/18/2023 2:36 AM CDT) Iron 16(L) 50 - 175 ug/dL 08/18/2023 4:35 AM CDT [facility] Transferrin 96(L) 174 - 382 mg/dL 08/18/2023 4:35 AM CDT [facility] Transferrin Saturation % 13(L) 16 - 50 % 08/18/2023 4:35 AM CDT [facility] TIBC Calculated 120(L) 240 - 450 ug/dL 08/18/2023 4:35 AM CDT [facility] Blood BLOOD SPECIMEN / Unknown Lab Venipuncture / Unknown 08/18/2023 2:36 AM CDT 08/18/2023 3:43 AM CDT Aishwarya Tarango DO LAB - CHEMISTRY SHAKILA RAO Performing Organization Address City/[facility]/ZIP Co de Phone Number [address] [address], [place] [phone] * (ABNORMAL) LIPID PROFILE (08/17/2023 1:57 AM CDT) Cholesterol Total 94 <200 mg/dL 08/17/2023 3:30 AM CDT [facility] HDL 26(L) >40 mg/dL 08/17/2023 3:30 AM CDT [facility] Comment: ATP III Classification of HDL Cholesterol: <40 mg/dL: Considered a major risk factor. >60 mg/dL: Considered a negative risk factor. LDL Calculated 59 <100 mg/dL 08/17/2023 3:30 AM CDT [facility] Comment: ATP III Classification of LDL Cholesterol: <100 mg/dL: Optimal 100 - 129 mg/dL: Near Optimal/Above Optimal 130 - 159 mg/dL: Borderline High 160 - 189 mg/dL: High >190 mg/dL: Very High Triglycerides 46 <150 mg/dL 08/17/2023 3:30 AM CDT [facility] Comment: ATP III Classification of Triglycerides: <150 mg/dL: Normal 150 - 199 mg/dL: Borderline High 200 - 400 mg/dL: High >500 mg/dL: Very High Blood BLOOD SPECIMEN / Unknown Lab Venipuncture / Unknown 08/17/2023 1:57 AM CDT 08/17/2023 2:56 AM CDT Vishal Mejias MD LAB - CHEMISTRY ORDERABLES Performing Organization Address City/[facility]/ZIP Co de Phone Number [address] [address], [place] [phone] * BLOOD TYPE VERIFICATION (08/16/2023 6:24 AM CDT) ABO Rh O POS 08/16/2023 7:1 9 AM CDT [facility] Blood Bank BLOOD SPECIMEN / Unknown Lab Venipuncture / Unknown 08/16/2023 6:24 AM CDT 08/16/2023 6:28 AM CDT Gregg Stock MD LAB - BLOOD BANK ORD ERABLES [facility] [address] [place] [address], [place] [phone] * (ABNORMAL) HEMOGLOBIN A1C (08/16/2023 5:55 AM CDT) Hemoglobin A1c 8.6(H) <=5.6 % 08/16/2023 2:48 PM CDT [facility] Estimated Average Glucose 200 mg/dL 08/16/2023 2:48 PM CDT [facility] Comment: HbA1c Interpretation: Normal : < 5.7% Pre-diabetes: 5.7-6.4% Diabetes: Equal to or greater than 6.5% Test results diagnostic of diabetes should be repeated for confirmation. Treatment target values recommended by ADA and other clinical organizations should be used to evaluate metabolic control in patients. Reference: [place] [employer] Association, Standards of Care in Diabetes [...] Flynn MD LAB - CHEMISTRY SHAKILA RAO Performing Organization Address City/[facility]/ZIP Co de Phone Number [place] [address] [place] [address], [facility] [phone] * CULTURE FUNGUS OTHER+FUNGUS SMEAR (08/15/2023 8:45 AM CDT) Only the most recent of2 resultswithin the time period is included. Culture No fungus isolated KARY 09/13/2023 6:25 AM CDT [facility] Fungus Stain No yeast or hyphae seen 09/13/2023 6:25 AM CDT [facility] Microbiology ENTIRE FOOT / Unknown Collection / Unknown 08/15/2023 8:45 AM CDT 08/15/2023 8:58 AM CDT Franco Flynn MD LAB - MICROBIOLOGY O RDERABLES [facility] [address] [place] [address], [facility] [phone] * Peripheral Nerve Block (08/15/2023 8:08 AM CDT) Narrative Reymundo Fermin MD - 08/15/2023 8:08 AM CDT Reymundo Fermin MD 08/15/2023 8:10 AM Peripheral Nerve Block Procedure: Peripheral Nerve Block Patient Location: Pre-op Preprocedure Section: Indications: surgical anesthesia. Pre-anesthetic Checklist: Patient identified, IV Checked, Site examined and clear, Risks and benefits discussed, Surgical consent verified, Monitors and equipment, Time-out performed, Informed consent obtained, Pre-op evaluation done, Questions answered/anesthesia questions answered, Allergies reviewed and Removal hand/wrist jewelry Monitors: Pulse Ox and EKG. Patient Condition: awake Patient Position: supine Patient Sedated? No Procedure Section Laterality: left Block Performed: Adductor Canal Prep: Chloraprep Strerile Field: gloves, mask and hat/cap Needle Type: Echogenic insulated Needle Gauge: 22 Needle Length: 100 mm Catheter? No Ultrasound Guided? Yes Visualization: Preliminary scan performed, Important anatomical structures identified, Needle [...] Tolerance: tolerated well Assessment: completed Staff Section Anesthesia Provider: Clinton Patel DO, Performed the procedure Provider #1: Reymundo Fermin MD. Reymundo Fermin MD [facility]HESIA O [facility] * Peripheral Nerve Block (08/15/2023 8:05 AM CDT) Narrative Reymundo Fermin MD - 08/15/2023 8:05 AM CDT Reymundo Fermin MD 08/15/2023 8:11 AM Peripheral Nerve Block Procedure: Peripheral Nerve Block Patient Location: Pre-op Preprocedure Section: Indications: surgical anesthesia. Pre-anesthetic Checklist: Patient identified, IV Checked, Site examined and clear, Risks and benefits discussed, Surgical consent verified, Monitors and equipment, Time-out performed, Informed consent obtained, Pre-op evaluation done, Questions answered/anesthesia questions answered, Allergies reviewed and Removal hand/wrist jewelry Monitors: Pulse Ox and EKG. Patient Condition: awake Patient Position: right lateral decubitus Patient Sedated? No Procedure Section Laterality: left Block Performed: Popliteal Prep: Chloraprep Strerile Field: gloves, mask and hat/cap Needle Type: nerve stimulator Needle Gauge: 22 Needle Length: 100 mm Catheter? No Nerve Stimulator? Yes Stimulation/Motor Response #1: plantar flexion Loss of Stimulation at (mA): 0.5 Ultrasound Guided? Yes Technique: in plane Visualization: Preliminary scan performed, Important anatomical structures identified, Needle [...] 08/15/2023 8:00 AM. Procedure Total Time: 5 minutes. Staff Section Anesthesia Provider: Reymundo Fermin MD, Performed the procedure Provider #1: Clinton Patel DO, Performed the procedure. Reymundo Fermin MD GENERAL ANESTHESIA O RDERABLES * LACTIC ACID BLOOD REFLEX TO REPEAT (08/15/2023 5:46 AM CDT) Lactic Acid-Stat 1.0 <=2.0 mmol/L 08/15/2023 6:20 AM CDT [facility] Blood BLOOD SPECIMEN / Unknown Venipuncture / Unknown 08/15/2023 5:46 AM CDT 08/15/2023 6:01 AM CDT Gregg Stock MD LAB - CHEMISTRY SHAKILA RAO [facility] Organization Address City/State/ZIP Co de Phone Number [address] [address], [facility] [phone] * TROPONIN-I HIGH SENSITIVE BASELINE + 1HR (08/15/2023 5:46 AM CDT) Troponin I High Sensitive 10 <=35 ng/L 08/15/2023 6:32 AM CDT [facility] Blood BLOOD SPECIMEN / Unknown Venipuncture / Unknown 08/15/2023 5:46 AM CDT 08/15/2023 6:02 AM CDT Gregg Stock MD LAB - CHEMISTRY SHAKILA RAO Performing Organization Address City/[facility]/ZIP Co de Phone Number [address] [address], [place] [phone] * (ABNORMAL) C-REACTIVE PROTEIN (08/15/2023 5:46 AM CDT) C-Reactive Protein 16.6(H) <=0.5 mg/dL 08/15/2023 6:27 AM CDT [facility] Blood BLOOD SPECIMEN / Unknown Venipuncture / Unknown 08/15/2023 5:46 AM CDT 08/15/2023 6:02 AM CDT Gregg Stock MD LAB - CHEMISTRY SHAKILA RAO Performing Organization Address [facility] Co de Phone Number [address] [address], [place] [phone] * (ABNORMAL) ERYTHROCYTE SEDIMENTATION RATE (08/15/2023 5:46 AM CDT) Erythrocyte Sedimentation Rate Westergren 113(H) 0 - 20 MM/HR 08/15/2023 6:20 AM CDT [facility] Blood BLOOD SPECIMEN / Unknown Venipuncture / Unknown 08/15/2023 5:46 AM CDT 08/15/2023 6:01 AM CDT Gregg Stock MD LAB - HEMATOLOGY JEANNE COVINGTON Performing Organization Address City/[facility]/ZIP Co de Phone Number [address] [address], [place] [phone] Care Teams Apprentice Instrument Technician Relationship Specialty Start Date End Date Helen Pereira MD [address] [place] [address] PCP - General Family Medicine 12/27/20
[2024-05-30 07:52] LABS: NT Pro B Type Natriuretic Pept 10800 pg/mL (19.9-100)
[2024-05-30] MEDS: FUROSEMIDE INJ 40 MG/4 ML VIAL IV PUSH (07:55)
--- NOTE | 2024-05-30 10:32 | PC.NURSE ---
Pt keeps removing BiPAP from face, stating he can't breathe. Pt educated that BiPap is used to improve dyspnea. BIPAP placed back on pt and reiterated the importance of leaving the BIPAP in place.
[2024-05-30 11:11] LABS: Troponin I 0.065 ng/mL (0.000-0.034)
[2024-05-30 11:36] LABS: Alveolar/Arterial O2 Gradient 25.7 mmHg; Base Excess ABG 6.8 mEq/l (+/-2.0); Fractional Inspired Oxygen 28 %; HCO3 ABG 36.4 mEq/l (22.0-26.0); Oxygen Content ABG 13.9 %vol (16.0-22.0); Oxygen Saturation ABG 90.5 % (95.0-100.0); Oxyhemoglobin 91.7 % THb (90.0-100.0); PO2 ABG 71.5 mmHg (80.0-100.0); PO2 FiO2 Ratio Arterial Blood 2.55 %; Total Hemoglobin 10.7 g/dL (12.0-18.0)
[2024-05-30 11:41] LABS: pH ABG 7.241 (7.350-7.450)
[2024-05-30 11:42] LABS: Device NON-INVASIVE VENT; Modified Allen's Test Pass; PCO2 ABG 86.8 mmHg (35.0-45.0); Site Drawn LEFT RADIAL
[2024-05-30 11:43] LABS: Non-Invasive Expiratory Pressure 8 CMH2O; Non-Invasive Inspiratory Pressure 12 CMH2O; Non-Invasive Vent Rate 18 /MIN
--- NOTE | 2024-05-30 11:46 | PC.NURSE ---
Contacted pt [facility], as listed in emergency contacts regarding pt care. No answer, voicemail left.
[2024-05-30] MEDS: LORazepam INJ (*CRX) 2 MG/ML VIAL 0.5 MG IV PUSH (12:37)
--- NOTE | 2024-05-30 12:40 | PC.NURSE ---
1230-Patient continually taking off his Bipap mask and saying he doesn't want it-patient appears very anxious-spoke with attending ED MD-he will go speak with patient. Patient is alert and oriented and able to make cognitive decisions
--- NOTE | 2024-05-30 12:42 | PC.NURSE ---
1240- Patient placed back on Bipap after giving 0.5 Ativan
--- NOTE | 2024-05-30 13:04 | PC.NURSE ---
1245--Respiratory noted patient respiratory status decreasing-patient evaluation showing patient unresponsive with decreased respiratory Rate. Dr Desai called to bedside when unable to palpate HR, pacemaker still firing. Unobtainable BP.
--- NOTE | 2024-05-30 13:06 | PC.NURSE ---
1254--Patient Time of after ultrasound verification by Dr Desai
--- NOTE | 2024-05-30 13:24 | P.PNCROSS_ITS ---
Event Note Event Note Event Note: Patient in the emergency room prior to [employer] seeing patient. No H&P d one.
--- NOTE | 2024-05-30 13:24 | PM.EVENT ---
Event Note Event Note Event Note: Patient in the emergency room prior to [employer] seeing patient. No H&P done.
--- NOTE | 2024-05-30 13:42 | PC.NURSE ---
Spoke with Brigido with [facility]- patient has been medically ruled out and can be released
--- NOTE | 2024-05-30 14:15 | PC.NURSE ---
Patient belongings to [facility] with patient. 1Phone (unable to turn off due to needing PIN), phone moving picture producer cord and 1 shoe
--- NOTE | 2024-05-30 14:18 | PC.NURSE ---
1200- Patient taking off his Bipap mask, when attempting to put back on patient keeps stating, I don't want it -I just don't want to do this anymore-I don't want to be here , patient encouraged to wear the mask
--- NOTE | 2024-05-30 14:22 | PC.NURSE ---
Verified [facility] aware of patients passing
== END 2024-05-30 14:30 | disposition expired ==
LOC: ANHED 08:26 → ANHIMU 12:29
PROVIDERS: General Practice; Student in an Organized Health Care Education/Training Program; Emergency Provider Emergency Medicine; PCP Family Medicine
DX: I21.4 Non-ST elevation (NSTEMI) myocardial infarction (principal); J96.90 Respiratory failure, unspecified, unspecified whether with hypoxia or hypercapnia; I50.9 Heart failure, unspecified; Z20.822 Contact with and (suspected) exposure to COVID-19; I11.0 Hypertensive heart disease with heart failure; I42.8 Other cardiomyopathies; E11.42 Type 2 diabetes mellitus with diabetic polyneuropathy; E11.51 Type 2 diabetes mellitus with diabetic peripheral angiopathy without gangrene; I73.9 Peripheral vascular disease, unspecified; E78.5 Hyperlipidemia, unspecified; E55.9 Vitamin D deficiency, unspecified; Z95.810 Presence of automatic (implantable) cardiac defibrillator; Z87.891 Personal history of nicotine dependence; Z89.512 Acquired absence of left leg below knee; Z89.421 Acquired absence of other right toe(s); Z79.84 Long term (current) use of oral hypoglycemic drugs; Z79.899 Other long term (current) drug therapy; Z79.4 Long term (current) use of insulin; Z79.02 Long term (current) use of antithrombotics/antiplatelets; Z79.82 Long term (current) use of aspirin
CPT/HCPCS: 36415; 36600; 71046; 80053; 82805; 83880; 84484; 85018; 85025; 87637; 93005; 94002; 96374; 96375; 99291; J1940; J2060